=== PATIENT | male | born 1930 | race Caucasian/White ===

== ENCOUNTER 2016-10-18 11:03 | Inpatient (IN) | payer OTHER, MEDICARE ==
[2016-10-18 11:12] VITALS: BMI 29.4
--- NOTE | 2016-10-18 11:21 | PDOC ---
History of Present Illness - General Chief Complaint: Shortness of Breath Stated Complaint: SOB Time Seen by Provider: 10/18/16 11:16 History Source: Patient, Old Records, Primary Care Provider Exam Limitations: No Limitations - History of Present Illness Initial Comments: 10/18/16 12:42 HPI: This 86-year-old male presents to the emergency room after seeing his primary care physician with shortness of breath and COPD exacerbation, hypoxia, respiratory failure. His oxygen saturation is 89% on room air. He was then brought over by his son for admission. Chief Compliant: Shortness of breath PMH: COPD, pulmonary hypertension, atrial fibrillation on before meals, CHF, LV dysfunction, HLD, ASD FH: Pt has not recently traveled outside the country in the last 30 days. Pt has not been in contact with people who have traveled out of the country, in contact with people who have been ill with fever, n, v, d. SH: smoking use: NONE illicit drug use: NONE alcohol use: NONE PSH: none Home med use noted on SEP Allergies: nka Immunizations: PCP: Dr. Pfeiffer Cards: Dr. Palma Past History - Past Medical History Allergies/Adverse Reactions: Allergies Allergy/AdvReac Type Severity Reaction Status Date / Time No Known Allergies Allergy Verified 10/18/16 11:05 Home Medications: Ambulatory Orders Furosemide [Lasix] 20 mg PO DAILY 10/18/16 Losartan Potassium [Cozaar] 25 mg PO DAILY 10/18/16 Metoprolol Succinate [Toprol Xl] 50 mg PO DAILY 10/18/16 Spironolactone [Aldactone] 25 mg PO DAILY 10/18/16 Warfarin Sodium [Coumadin] 2.5 mg PO DAILY 10/18/16 Asthma: Yes Cardiac Disorders: Yes (A-FIB) CVA: Yes (cad, asd) COPD: Yes (& pulm htn) GI Disorders: Yes (GI BLEED, WITH TRANSFUSION) HTN: Yes - Surgical History Cardiac Surgery: Yes (ASD) - Psycho/Social/Smoking Cessation Hx Anxiety: No Suicidal Ideation: No Smoking History: Former smoker Have you smoked in the past 12 months: No If you are a former smoker, when did you quit?: 1984 Information on smoking cessation initiated: No Hx Alcohol Use: No Drug/Substance Use Hx: No Substance Use Type: None Hx Substance Use Treatment: No Review of Systems - Review of Systems Able to Perform ROS?: Yes Comments:: 10/18/16 12:55 General statement: Shortness of breath exacerbation of COPD Hematology: Has had a history of what transfusions needed but no active bleeding is also noted to be on Coumadin for A. fib Skin: Neg for lesions, rash, bruising. HEENT: Neg symptoms Respiratory: Positive for SOB and difficulty in breathing Cardiac: Neg chest pain GI: Neg pain, n/v : Neg problems on voiding MS: Neg for joint pain/stiffness, no edema Neuro: Neg for LOC, weakness, Endocrine: Neg for excess thirst/hunger, cold/heat intolerance, excess sweating Allergies: Neg for allergies *Physical Exam - Vital Signs Last Vital Signs Temp Pulse Resp BP Pulse Ox 97.5 F L 92 H 25 H 100/49 95 10/18/16 11:06 10/18/16 11:06 10/18/16 11:06 10/18/16 11:06 10/18/16 11:06 - Physical Exam Comments: 10/18/16 12:56 General Appearance: This well appearing 86-year-old male who appears SOB V/S: hemodynamically stable, afebrile Skin: WNL of pt's skin color, no signs of pallor, mottling, cyanosis Head:symmetrical Eyes: EOM's intact, PERRLA Ears: denies pain Nose: patent Throat: lips, teeth, gums, tongue, buccal mucos pink and moist Lungs: Chest symmetry equal. Cap refill <3 seconds. Lung sounds diminished with an oxygen saturation of 89% on room air Cardiac: PMI at R 4MCL space, pos S1 and S2, irregular rate. Abdomen: Soft, round, nontender : Not observed Muscularskeletal: Gait steady, ambulated in to ER, no edema +PMS Neuro: AAOx3, cognitively intact, speech clear and appropriate. ED Treatment Course - LABORATORY CBC & Chemistry Diagram: 10/18/16 11:30 10/18/16 11:30 Medical Decision Making - Medical Decision Making 10/18/16 12:57 A/P: A 86-year-old male with shortness of breath history of CHF and COPD. Was seen earlier today at his primary care physician's office who would like to have the patient admitted. 1. Shortness of breath, COPD exacerbation Pulse ox greater than 90%, Steroids, Oxygen to maintain in sat of greater than 90 2. Labs Noted to have a low H/H requiring transfusion Type and screen 1 unit of packed red blood cells, 3. EKG, Cardiac enzymes 4. Admission inpatient observation per Dr. Pfeiffer, attending. *DC/Admit/Observation/Transfer Diagnosis at time of Disposition: Shortness of breath - Discharge Dispostion Condition at time of disposition: Guarded Admit: Yes
[2016-10-18 11:42] LABS: BASOPHIL 0.4 % (0-2.0); EOSINOPHIL 2.7 % (0-4.5); MCH 31.9 pg (25.7-33.7); MCHC 32.1 g/dl (32.0-35.9); MEAN CELL VOLUME 99.2 fl (80-96); MEAN PLT VOLUME 6.3 fl (7.5-11.1); NEUTROPHILS 54.4 % (42.8-82.8); PLATELET COUNT 117 K/MM3 (134-434); RDW 19.7 % (11.9-15.9); WHITE BLOOD COUNT 2.7 K/mm3 (4.0-10.0)
--- NOTE | 2016-10-18 11:52 | CON.CARD ---
Consult Consult Specialty:: Cardiology Referred by:: Ean Pfeiffer MD Reason for Consultation:: Dyspnea - History of Present Illness Chief Complaint: Dyspnea History of Present Illness: Patient is an 86 year old male with underlying history of 1 vessel CAD on medical therapy, angina pectoris, history of congestive heart failure with LV systolic and diastolic LV dysfunction, history of atrial septal defect s /p open repair, persistent afib s/p CryoMaze procedure and on chronic anticoagulation ([id number] score of 4), atypical atrial flutter/atrial tachycardia, hypercholesterolemia, history of COPD, reactive airway disease, pulmonary hypertension, hyperlipidemia, GI bleed and degenerative joint disease presented with complaints of progressively worsening SOB, fatigue, light- headedness and decreased exercise tolerance, he denies chest pain, palpitations , orthopnea, true syncope, PND or LE edema, found to have profound anemia Hgb 6.7, reports hematochezia he attributes to hemorrhoids. Allergies: NKDA - History Source History Provided By: Patient Limitations to Obtaining History: No Limitations - Past Medical History Cardio/Vascular: Yes: AFIB, CAD, CHF ([place] on chronic LV systolic and diastolic heart failure), Pulmonary Hypertension, Other (REPAIR OF LARGE ASD) Pulmonary: Yes: COPD, Other (PULMONARY HYPERTENSION). No: Cancer, O2 Dependent , Previously Intubated, Pulmonary Embolus Musculoskeletal: Yes: Osteoarthritis. No: Chronic low back pain ENT: Yes: Other (H/O EPISTAXSIS WITH ER VISTS TWICE OVER PAST 12 MONTHS.) - Alcohol/Substance Use Hx Alcohol Use: No History of Substance Use: reports: None - Smoking History Smoking history: Former smoker Have you smoked in the past 12 months: No If you are a former smoker, when did you quit?: 1984 - Social History ADL: Family Assistance History of Recent Travel: No Home Medications - Allergies Allergies/Adverse Reactions: Allergies Allergy/AdvReac Type Severity Reaction Status Date / Time No Known Allergies Allergy Verified 10/18/16 11:05 - Home Medications Home Medications: Ambulatory Orders Furosemide [Lasix] 20 mg PO DAILY 10/18/16 Losartan Potassium [Cozaar] 25 mg PO DAILY 10/18/16 Metoprolol Succinate [Toprol Xl] 50 mg PO DAILY 10/18/16 Spironolactone [Aldactone] 25 mg PO DAILY 10/18/16 Warfarin Sodium [Coumadin] 2.5 mg PO DAILY 10/18/16 Family Disease History - Family Disease History Family Disease History: Heart Disease: Father, Sister, [place]: Brother (CVA, PROSTATE CANCE,LUNG CANCER,PANCREATIC CANCER), Other: Brother Review of Systems - Review of Systems Respiratory: reports: Exercise Intolerance, SOB on Exertion Vital Signs: Vital Signs Temperature 97.5 F L 10/18/16 11:06 Pulse Rate 92 H 10/18/16 11:06 Respiratory Rate 25 H 10/18/16 11:06 Blood Pressure 100/49 10/18/16 11:06 O2 Sat by Pulse Oximetry (%) 95 10/18/16 11:06 Constitutional: Yes: No Distress, Calm Neck: Yes: Supple Respiratory: Yes: Regular, Diminished, On Nasal O2 Gastrointestinal: Yes: Normal Bowel Sounds, Soft, Abdomen, Obese Cardiovascular: Yes: Pulse Irregular JVD: No Carotid Bruit: No Heart Sounds: Yes: S1, S2 Murmur: Yes: Systolic Murmur, Grade 1 Edema: No - Other Data Afib @ 89 RBBB similar to previous Echo: Report Reviewed Prior Cardiac Procedures: Cardiac Catheterization Ejection Fraction %: LVEF > or = 40 % Imaging - Results Chest X-ray: Report Reviewed (NAD, prominent right PA) EKG: Report Reviewed Problem List - Problems (1) COPD (chronic obstructive pulmonary disease) Code(s): J44.9 - CHRONIC OBSTRUCTIVE PULMONARY DISEASE, UNSPECIFIED Qualifiers : COPD type: unspecified COPD Qualified Code(s): J44.9 - Chronic obstructive pulmonary disease, unspecified (2) GI bleed Code(s): K92.2 - GASTROINTESTINAL HEMORRHAGE, UNSPECIFIED Qualifiers: GI bleed type/associated pathology: diverticulosis Qualified Code(s) : K57.91 - Diverticulosis of intestine, part unspecified, without perforation or abscess with bleeding (3) Hypertension Code(s): I10 - ESSENTIAL (PRIMARY) HYPERTENSION Qualifiers: Hypertension type: essential hypertension Qualified Code(s): I10 - Essential (primary) hypertension (4) Shortness of breath Code(s): R06.02 - SHORTNESS OF BREATH (5) Anemia Code(s): D64.9 - ANEMIA, UNSPECIFIED Qualifiers: Anemia type: iron deficiency (6) Atrial fibrillation Code(s): I48.91 - UNSPECIFIED ATRIAL FIBRILLATION Qualifiers: Atrial fibrillation type: persistent Qualified Code(s): I48.1 - Persistent atrial fibrillation (7) CAD (coronary artery disease) Code(s): I25.10 - ATHSCL HEART DISEASE OF [place] CORONARY ARTERY W/O ANG PCTRS Qualifiers: Coronary Disease-Associated Artery/Lesion type: [place] artery [place] vs. transplanted heart: [place] heart Associated angina: without angina Qualified Code(s): I25.10 - Atherosclerotic heart disease of [place] coronary artery without angina pectoris (8) H/O atrial septal defect repair Code(s): Z98.89 - OTHER SPECIFIED POSTPROCEDURAL STATES * DO NOT USE * Z87.74 - PERSONAL HISTORY OF CONGENITAL MALFORM OF HEART AND CIRC SYS (9) Hypercholesterolemia Code(s): E78.0 - PURE HYPERCHOLESTEROLEMIA * DO NOT USE * (10) Rectal bleeding Code(s): K62.5 - HEMORRHAGE OF ANUS AND RECTUM (11) Right bundle branch block Code(s): I45.10 - UNSPECIFIED RIGHT BUNDLE-BRANCH BLOCK (12) Shortness of breath on exertion Code(s): R06.02 - SHORTNESS OF BREATH (13) Systolic and diastolic CHF, acute on chronic Code(s): I50.43 - ACUTE ON CHRONIC COMBINED SYSTOLIC AND DIASTOLIC HRT FAIL Assessment/Plan 10/28/2015 Echo: Normal LV size and fxn, mod decreased RV fxn, severe LAE, mild- mod CHRISTIAN, mild MR, mild-mod TR, RVSP 50-60 mmHg, mod AR, IN 1. Dyspnea referable to symptomatic anemia referable to recurrent lower GI bleed etiology to be determined, prior history of diverticular bleed post resection of a large rectal polyp 2. Chronic LV diastolic dysfunction with h/o failure 3. ASHD, single vessel CAD, angina pectoris 4. Persistent atrial fibrillation S/P CryoMaze [id number] with therapeutic INR 5. HTN 6. Hypercholesterolemia 7. Post ASD repair 8. RBBB 9. Reactive airway disease 10. Pulmonary HTN 11. Acute on CKD with hyperkalemia PLAN: 1. Await GI input to address hematochezia. Would prefer to avoid FFP +/- Vit K unless it is absolutely necessary in view of patient's stroke risk. Monitor CBC and transfuse PRBC as needed with diuretics listed below. 2. Continue Lasix 40 qd and Spironolactone 25 qd with caution pending volume resuscitation with monitor electrolytes and renal function 3. Hold Coumadin pending hemostasis, given recurrent GI bleeds on systemic a/c, patient may be candidate for NATE occlusion device 4. Continue Metoprolol ER 50 qd and Losartan 25 qd as hemodynamics tolerate 5. Thank you for consultative opportunity
[2016-10-18 12:15] LABS: TROPONIN I < 0.02 ng/ml (0.00-0.05)
[2016-10-18] MEDS ORDERED: ALBUTEROL SO4 2.5/IPRATROPIUM 0.5 INH SOL 3 ML VIAL.NEB. NEB ONE ×2 (13:00→13:11)
[2016-10-18] MEDS ORDERED: methylPREDNISolone NA SUCC 125 MG/2 ML VIAL IVPB ONE (13:00)
[2016-10-18] MEDS ORDERED: methylPREDNISolone NA SUCC 125 MG/2 ML VIAL ONE (13:11)
[2016-10-18 13:33] LABS: ANISOCYTOSIS 3+; MICROCYTOSIS 2+; POLYCHROMASIA FEW
[2016-10-18 13:46] LABS: ALBUMIN 3.1 g/dl (3.4-5.0); BILIRUBIN,TOTAL 2.1 mg/dL (0.2-1.0); CALCIUM 8.3 mg/dL (8.5-10.1); COCKROFT - GAULT 32.59; CREATININE 2.1 mg/dL (0.7-1.3); TOT PROT 8.3 g/dl (6.4-8.2)
--- NOTE | 2016-10-18 14:36 | HP ---
Admitting History and Physical - Primary Care Physician PCP: Ean Pfeiffer - Admission Chief Complaint: shortness of breath History of Present Illness: 86yo male with h/o HTN, hyperlipidemia, CAD, LV diastolic/systolic dysfunction, pulmonary HTN, persistent atrial fibrillation s/p cryomaze, COPD who presents with worsening shortness of breath. He does report chest discomfort but no palpitations. No fevers, chills or sweats. No sick contacts or recent travel. He does report increase in his leg swelling and orthopnea. Also reports BRBPR which he attributes to his hemorrhoids. No abdominal pain, nausea or vomiting. His last endoscopy/colonoscopy was in December which showed antral ulcers, colonic ulcers and severe diverticulosis. History Source: Patient, Medical Record Limitations to Obtaining History: No Limitations - Past Medical History Cardiovascular: Yes: AFIB, CAD, CHF ([place] on chronic LV systolic and diastolic heart failure), Pulmonary Hypertension, Other (REPAIR OF LARGE ASD) Pulmonary: Yes: COPD, Other (PULMONARY HYPERTENSION). No: Cancer, O2 Dependent , Previously Intubated, Pulmonary Embolus Heme/Onc: Yes: Other (PATIENT IS ON COUMADIN). No: B12 Deficiency, Bleeding Disorder Musculoskeletal: Yes: Osteoarthritis. No: Chronic low back pain ENT: Yes: Other (H/O EPISTAXSIS WITH ER VISTS TWICE OVER PAST 12 MONTHS.) - Smoking History Smoking history: Former smoker Have you smoked in the past 12 months: No If you are a former smoker, when did you quit?: 1984 - Alcohol/Substance Use Hx Alcohol Use: No History of Substance Use: reports: None - Social History ADL: Family Assistance History of Recent Travel: No Home Medications - Allergies Allergies/Adverse Reactions: Allergies Allergy/AdvReac Type Severity Reaction Status Date / Time No Known Allergies Allergy Verified 10/18/16 11:05 - Home Medications Home Medications: Ambulatory Orders Furosemide [Lasix] 20 mg PO DAILY 10/18/16 Losartan Potassium [Cozaar] 25 mg PO DAILY 10/18/16 Metoprolol Succinate [Toprol Xl] 50 mg PO DAILY 10/18/16 Spironolactone [Aldactone] 25 mg PO DAILY 10/18/16 Warfarin Sodium [Coumadin] 2.5 mg PO DAILY 10/18/16 Family Disease History - Family Disease History Family Disease History: Heart Disease: Father, Sister, [place]: Brother (CVA, PROSTATE CANCE,LUNG CANCER,PANCREATIC CANCER), Other: Brother Review of Systems - Review of Systems Constitutional: denies: Chills, Fever Eyes: denies: Recent Change in Vision HENT: denies: Nasal Congestion, Throat Pain Neck: denies: Stiffness, Tenderness Cardiovascular: reports: Edema, Shortness of Breath. denies: Chest Pain, Palpitations Respiratory: reports: Cough, Exercise Intolerance, Orthopnea, SOB, SOB on Exertion. denies: Hemoptysis, Wheezing Gastrointestinal: reports: Rectal Bleeding. denies: Abdominal Pain, Nausea, Vomiting, Vomiting Blood Genitourinary: denies: Dysuria, Hematuria Neurological: denies: Dizziness, Headache Physical Examination Vital Signs: Vital Signs Temperature 97.5 F L 10/18/16 11:06 Pulse Rate 86 10/18/16 13:38 Respiratory Rate 22 10/18/16 13:26 Blood Pressure 100/49 10/18/16 11:06 O2 Sat by Pulse Oximetry (%) 98 10/18/16 13:26 Constitutional: Yes: Calm Eyes: Yes: Conjunctiva Clear, EOM Intact HENT: Yes: Atraumatic, Normocephalic Neck: Yes: Supple, Trachea Midline Cardiovascular: Yes: Pulse Irregular Respiratory: Yes: Regular, Diminished (decreased breath sounds at the bases), Rhonchi (scattered) Gastrointestinal: Yes: Normal Bowel Sounds, Soft, Abdomen, Obese. No: Tenderness Edema: Yes Neurological: Yes: Alert, Oriented Labs: CBC, BMP 10/18/16 11:30 10/18/16 11:30 Imaging - Results Chest X-ray: Report Reviewed, Image Reviewed (no infiltrates, full pulmonary vasculature) Problem List - Problems (1) GI bleed Code(s): K92.2 - GASTROINTESTINAL HEMORRHAGE, UNSPECIFIED (2) Anemia Code(s): D64.9 - ANEMIA, UNSPECIFIED Qualifiers: Anemia type: iron deficiency (3) Atrial fibrillation Code(s): I48.91 - UNSPECIFIED ATRIAL FIBRILLATION Qualifiers: Atrial fibrillation type: persistent Qualified Code(s): I48.1 - Persistent atrial fibrillation (4) CAD (coronary artery disease) Code(s): I25.10 - ATHSCL HEART DISEASE OF [place] CORONARY ARTERY W/O ANG PCTRS Qualifiers: Coronary Disease-Associated Artery/Lesion type: [place] artery [place] vs. transplanted heart: [place] heart Associated angina: without angina Qualified Code(s): I25.10 - Atherosclerotic heart disease of [place] coronary artery without angina pectoris (5) Systolic and diastolic CHF, acute on chronic Code(s): I50.43 - ACUTE ON CHRONIC COMBINED SYSTOLIC AND DIASTOLIC HRT FAIL (6) Hypertension Code(s): I10 - ESSENTIAL (PRIMARY) HYPERTENSION (7) COPD (chronic obstructive pulmonary disease) Code(s): J44.9 - CHRONIC OBSTRUCTIVE PULMONARY DISEASE, UNSPECIFIED Assessment/Plan GI Bleed Anemia CAD LV Diastolic/Systolic Dysfunction Acute on Chronic Renal Failure Atrial Fibrillation COPD HTN Hyperlipidemia - transfuse PRBC - hold anticoagulation, would avoid reversing INR due to stroke risk - monitor H/H - protonix for now - GI evaluation - cardiology input appreciated - rate controlled - inhaled bronchodilators - DVT prophylaxis Harish Bolton MD
[2016-10-18 14:40] LABS: URINE APPEARANCE CLEAR; URINE BILIRUBIN NEGATIVE (NEGATIVE); URINE BLOOD NEGATIVE (NEGATIVE); URINE COLOR LTYELLOW; URINE GLUCOSE (UA) NEGATIVE (NEGATIVE); URINE KETONE NEGATIVE (NEGATIVE); URINE LEUK ESTERASE NEGATIVE (NEGATIVE); URINE NITRITE NEGATIVE (NEGATIVE); URINE PROTEIN NEGATIVE (NEGATIVE); URINE UROBILINOGEN NEGATIVE E.U./dl (0.2-1.0)
[2016-10-18 14:47] LABS: INR 2.85 (0.82-1.09)
[2016-10-18] MEDS ORDERED: ALBUTEROL SO4 2.5/IPRATROPIUM 0.5 INH SOL 3 ML VIAL.NEB. NEB PRN (14:48)
--- NOTE | 2016-10-18 16:19 | CONSULT ---
Consultation: REQUESTING PROVIDER: CONSULT REQUEST: We have been asked to medically evaluate this patient for ( specify). HISTORY OF PRESENT ILLNESS: 86 y/o male came to ED with a complaint of worsening in breathing. Patient states that he has shortness of breath since 5 years but its getting worse. Now he is unabe to walk from from his room to corridor, denies orthopnea, sleep with one pillow. States that he has cough and produce white sputum, denies fever, chills. Denies lightheadedness, dizziness, palpitations. Patient also reports that he has external haemorrhoids and has noticed a blood, blood is bright red, present after the end of defecation, splash is seen in benson, blood present when he wipes him self. Denies pain during defecation, denies pain in abdomen, denies loss of weight, denies nausea, vomiting, denies abdominal distension. He also report h/o repeated epistaxis. Denies bleed from gums, haematuria. REVIEW OF SYSTEMS: CONSTITUTIONAL: Absent: fever, chills, diaphoresis, generalized weakness, malaise, loss of appetite, weight change HEENT: Absent: rhinorrhea, nasal congestion, throat pain, throat swelling, difficulty swallowing, mouth swelling, ear pain, eye pain, visual changes, epistaxis CARDIOVASCULAR: Absent: chest pain, syncope, palpitations, irregular heart rate, lightheadedness , peripheral edema RESPIRATORY: Absent: cough, shortness of breath, dyspnea with exertion, orthopnea, wheezing, stridor, hemoptysis GASTROINTESTINAL: Absent: abdominal pain, abdominal distension, nausea, vomiting, diarrhea, constipation, melena, lower gi bleed, external haemorrhoids GENITOURINARY: Absent: dysuria, frequency, urgency, hesitancy, hematuria, flank pain, genital pain MUSCULOSKELETAL: Absent: myalgia, arthralgia, SKIN: Absent: rash, HEMATOLOGIC/IMMUNOLOGIC: Absent: easy bleeding, easy bruising, ENDOCRINE: Absent: unexplained weight gain, unexplained weight loss, heat intolerance, cold intolerance NEUROLOGIC: Absent: headache, focal weakness or paresthesias, dizziness, unsteady gait, seizure, mental status changes, PSYCHIATRIC: Absent: anxiety, depression, PHYSICAL EXAMINATION Vital Signs - 24 hr 10/18/16 10/18/16 13:26 13:38 Pulse Rate [ 86 Left] Respiratory 22 Rate O2 Sat by Pulse 98 Oximetry (%) GENERAL: Awake, alert, and fully oriented, in no acute distress. HEAD: Normal with no signs of trauma. EYES: Pupils equal, round and reactive to light, EARS, NOSE, THROAT: Ears normal, nares patent, oropharynx clear without exudates. NECK: Normal range of motion, supple without lymphadenopathy,or masses. LUNGS: Breath sounds equal, clear to auscultation bilaterally. No wheezes, and no crackles. No accessory muscle use. HEART:s1s2 normal irregular ABDOMEN: Soft, nontender, not distended, normoactive bowel sounds, no guarding, no rebound, no masses. MUSCULOSKELETAL: Normal range of motion at all joints. No bony deformities or tenderness. No CVA tenderness. UPPER EXTREMITIES: 2+ pulses, warm, well-perfused. No cyanosis. No clubbing. Cap refill <2 seconds. No peripheral edema. LOWER EXTREMITIES: 2+ pulses, warm, well-perfused. No calf tenderness. peripheral edema 1+ NEUROLOGICAL: Cranial nerves II-XII intact. Normal speech. PSYCHIATRIC: Cooperative. Good eye contact. Appropriate mood and affect. SKIN: Warm, dry, rectal exam: no fissure, skin tag present, no blood seen, anal tone normal, no blood stain on finger. Laboratory Results - last 24 hr 10/18/16 10/18/16 10/18/16 11:30 11:30 11:30 WBC 2.7 L RBC 2.10 L D Hgb 6.7 L* D Hct 20.9 L D MCV 99.2 H MCHC 32.1 RDW 19.7 H D Plt Count 117 L MPV 6.3 L Neutrophils % 54.4 Lymphocytes % 25.9 D Monocytes % 16.6 H Eosinophils % 2.7 Basophils % 0.4 Polychromasia Few Anisocytosis 3+ Microcytosis 2+ Macrocytosis 1+ INR PTT (Actin FS) Sodium 136 Potassium 5.2 H Chloride 98 Carbon Dioxide 26 D Anion Gap 12 BUN 43 H D Creatinine 2.1 H D Creat Clearance w eGFR 30.02 Random Glucose 191 H D Calcium 8.3 L Total Bilirubin 2.1 H D AST 22 D ALT 14 Alkaline Phosphatase 96 Creatine Kinase 68 Troponin I < 0.02 B-Natriuretic Peptide 2209.06 H Total Protein 8.3 H Albumin 3.1 L Urine Color Urine Appearance Urine pH Ur Specific [place] Urine Protein Urine Glucose (UA) Urine Ketones Urine Blood Urine Nitrite Urine Bilirubin Urine Urobilinogen Ur Leukocyte Esterase Blood Type Antibody Screen Antibody Identification Direct Antiglob Test Crossmatch Spec Expiration Date 10/18/16 10/18/16 10/18/16 13:18 13:27 13:27 WBC RBC Hgb Hct MCV MCHC RDW Plt Count MPV Neutrophils % Lymphocytes % Monocytes % Eosinophils % Basophils % Polychromasia Anisocytosis Microcytosis Macrocytosis INR 2.85 H D PTT (Actin FS) 52.7 H Sodium Potassium Chloride Carbon Dioxide Anion Gap BUN Creatinine Creat Clearance w eGFR Random Glucose Calcium Total Bilirubin AST ALT Alkaline Phosphatase Creatine Kinase Troponin I B-Natriuretic Peptide Total Protein Albumin Urine Color Urine Appearance Urine pH Ur Specific [place] Urine Protein Urine Glucose (UA) Urine Ketones Urine Blood Urine Nitrite Urine Bilirubin Urine Urobilinogen Ur Leukocyte Esterase Blood Type Cancelled Antibody Screen Cancelled Antibody Identification Direct Antiglob Test Crossmatch Spec Expiration Date Cancelled 10/18/16 10/18/16 14:15 14:34 WBC RBC Hgb Hct MCV MCHC RDW Plt Count MPV Neutrophils % Lymphocytes % Monocytes % Eosinophils % Basophils % Polychromasia Anisocytosis Microcytosis Macrocytosis INR PTT (Actin FS) Sodium Potassium Chloride Carbon Dioxide Anion Gap BUN Creatinine Creat Clearance w eGFR Random Glucose Calcium Total Bilirubin AST ALT Alkaline Phosphatase Creatine Kinase Troponin I B-Natriuretic Peptide Total Protein Albumin Urine Color Ltyellow Urine Appearance Clear Urine pH 5.0 Ur Specific [place] 1.011 Urine Protein Negative Urine Glucose (UA) Negative Urine Ketones Negative Urine Blood Negative Urine Nitrite Negative Urine Bilirubin Negative Urine Urobilinogen Negative Ur Leukocyte Esterase Negative Blood Type O POSITIVE Antibody Screen Positive H Antibody Identification No Result Required. Direct Antiglob Test Positive H Crossmatch See Detail Spec Expiration Date Active Medications Generic Name Dose Route Start Last Admin Trade Name Freq PRN Reason Stop Dose Admin Albuterol/Ipratropium 1 amp 10/18/16 14:48 Duoneb - NEB Q4H PRN SHORTNESS OF BREATH Furosemide 20 mg 10/19/16 10:00 Lasix - PO DAILY RUBIA Pantoprazole Sodium 100 mls @ 200 mls/hr 10/18/16 22:00 Protonix 40mg Ivpb (Pre-Docked) IVPB BID RUBIA Losartan Potassium 25 mg 10/19/16 10:00 Cozaar - PO DAILY RUBIA Metoprolol Succinate 50 mg 10/19/16 10:00 Toprol Xl - PO DAILY [facility] Spironolactone 25 mg 10/19/16 10:00 Aldactone - PO DAILY [facility] ASSESSMENT/PLAN: Gi bleed with anemia ( UGI bleed vs haemorrhoids vs diverticular bleed, no h/o bleeeding disorder ) hb 6.7, no active bleed follow stool for occult pack cell transfusion with 20mg po lasix monitor haemoglobin continue with protonix 40g bid gastroentrology consult His last endoscopy/colonoscopy was in December which showed antral ulcers, colonic ulcers and severe diverticulosis. Dyspnea could be due to anemia, less likely from chronic chf transfuse blood spo2 98 % on 2 L nasal canula [place] on ckd monitor cr avoid nephrotoxic drugs follow urine lytes acute on chronic CHF continue with lasix 40 mg po daily daily weight intake/ output H/o cad/ afib hold coumadin in view of anemia and gi bleed rate control with toprol xl [id number] score of 5 h/o copd not active on duoneb q4h prn Fluid: orally allowed electrolyte : repeat in am nutrition; clear liquid dvt pro : scd b/l gi pro : on protonix dispo ; admit in icu Dispo: We will continue to follow the patient. Thank you for this consultative opportunity. Visit type - Emergency Visit Emergency Visit: Yes ED Registration Date: 10/18/16 Care time: The patient presented to the Emergency Department on the above date and was hospitalized for further evaluation of their emergent condition. - New Patient This patient is new to me today: Yes Date on this admission: 10/18/16 - Critical Care Critical Care patient: Yes Total Critical Care Time (in minutes): 45 Critical Care Statement: The care of this patient involved high complexity decision making to prevent further life threatening deterioration of the patient 's condition and/or to evalute & treat vital organ system(s) failure or risk of failure.
[2016-10-18] MEDS ORDERED: POLYETHYLENE GLYCOL 3350 119 GM BTL PO SCH (22:00)
[2016-10-18] MEDS ORDERED: MUPIROCIN 2% TOPICAL OINTMENT FOR DECOLONIZATION NS SCH (22:00)
[2016-10-18] MEDS ORDERED: CHLORHEXIDINE GLUCONATE 4% CLEANSER FOR DECOLONIZATION TP SCH (22:00)
[2016-10-18] MEDS ORDERED: PANTOPRAZOLE SODIUM 100 ML IVPB SCH (22:00)
[2016-10-19 06:37] LABS: BASOPHIL 0.1 % (0-2.0); EOSINOPHIL 0.2 % (0-4.5); MCH 31.9 pg (25.7-33.7); MCHC 31.9 g/dl (32.0-35.9); MEAN PLT VOLUME 6.8 fl (7.5-11.1); NEUTROPHILS 77.7 % (42.8-82.8); PLATELET COUNT 129 K/MM3 (134-434); RDW 19.4 % (11.9-15.9); WHITE BLOOD COUNT 3.2 K/mm3 (4.0-10.0)
[2016-10-19 06:54] LABS: INR 2.96 (0.82-1.09); PROTHROMBIN TIME (PATIENT) 33.3 SEC (9.98-11.88)
--- NOTE | 2016-10-19 06:59 | PN ---
Progress Note (short form) - Note Progress Note: Chief Complaint: Events noted, notes reviewed, sitting in a chair, Denies any chest pain but reports persistent dyspnea, awaiting blood transfusion, await GI evaluation History of Present Illness: Seen and examined in the ICU. Events noted, notes reviewed, sitting in a chair, Denies any chest pain but reports persistent dyspnea, awaiting blood transfusion , await GI evaluation Rhythm currently appears to be sinus rhythm Will obtain operative report from [facility] in reference to his ASD repair and Cry- Maze procedure to assess if LA appendage was resected, if not consideration for NATE closure device as alternative to chronic A/C - Current Medication List Current Medications Albuterol/Ipratropium (Duoneb -) 1 amp NEB Q4H PRN PRN Reason: SHORTNESS OF BREATH Chlorhexidine Gluconate (Hibiclens For Decolonization -) 1 applic TP HS [facility] Last Admin: 10/18/16 21:48 Dose: 1 applic Furosemide (Lasix -) 40 mg PO DAILY [facility] Pantoprazole Sodium (Protonix 40mg Ivpb (Pre-Docked)) 100 mls @ 200 mls/hr IVPB BID [facility] Last Admin: 10/18/16 21:42 Dose: 200 mls/hr Losartan Potassium (Cozaar -) 25 mg PO DAILY [facility] Metoprolol Succinate (Toprol Xl -) 50 mg PO DAILY [facility] Mupirocin (Bactroban Ointment (For Decolonization) -) 1 applic NS BID [facility] Stop: 10/23/16 21:59 Last Admin: 10/18/16 21:47 Dose: 1 applic Polyethylene Glycol (Miralax (For Daily Use) -) 17 gm PO BID [facility] Last Admin: 10/18/16 21:48 Dose: 17 grams Spironolactone (Aldactone -) 25 mg PO DAILY [facility] Review of Systems Constitutional: denies: Chills or Fever Cardiovascular: As noted above Respiratory: denies: Cough or Sputum Production Gastrointestinal: denies: Nausea, Vomiting, Diarrhea, Constipation or Abdominal Pain Genitourinary: No symptoms reported - Objective Vital Signs: Last Vital Signs Temp Pulse Resp BP Pulse Ox 97.8 F 72 16 93/49 98 10/19/16 06:00 10/19/16 06:00 10/19/16 06:00 10/19/16 06:00 10/18/16 17:00 Neck: Supple Negative JVD No Bruit Cardiovascular: S1 S2 Regular Rate Rhythm grade 2/6 SM Respiratory: Clear to A&P Bilaterally Gastrointestinal: Soft Benign Normal Bowel Sounds Ext: No Edema Labs: CBC, BMP 10/19/16 05:20 BMP pending from this AM INR, PTT INR 2.96 (0.82-1.09) H 10/19/16 05:20 Assessment/Plan ASSESSMENT: 1. Recurrent lower GI bleed etiology to be determined, prior history of diverticular bleed post resection of a large rectal polyp 2. 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 Persistent atrial fibrillation post Cryo-Maze, [id number] score of 5 5. HTN 6. Hypercholesterolemia 7. ASD post surgical repair 8. Reactive airway disease/COPD 9. Anemia referable to above 10. CKD PLAN: 1. Transfuse to maintain Hg equal or > 8.0 2. Recommend resumption of A/C therpay once cleared by GI and bleeding has ceased considering the above noted [id number] score of 5 3. Continue Lasix and Spironolactone with close monitoring of renal function 4. Continue Toprol XL 5. Continue Cozaar 6. Continue to hold Coumadin, pending further evaluation 7. Obtain operative report from [facility] in reference to his ASD repair and Cry- Maze procedure to assess if LA appendage was resected, if not consideration for NATE closure device as alternative to chronic A/C Nova Jara MD
[2016-10-19 07:40] LABS: BILIRUBIN,TOTAL 1.3 mg/dL (0.2-1.0); CALCIUM 8.5 mg/dL (8.5-10.1); COCKROFT - GAULT 40.26; CREATININE 1.7 mg/dL (0.7-1.3); MAGNESIUM 2.7 mg/dL (1.8-2.4); PHOSPHOROUS 4.3 mg/dL (2.5-4.9); TOT PROT 8.4 g/dl (6.4-8.2)
[2016-10-19] MEDS ORDERED: DEXTROSE 50%-WATER 50 ML VIAL IVPUSH ONE (09:00)
[2016-10-19] MEDS ORDERED: INSULIN REGULAR HUMAN 100 UNITS/ML *VIAL IVPUSH ONE (09:00)
[2016-10-19] MEDS: ALBUTEROL SO4 0.083% IH SOL 2.5 MG/3 ML VIAL.NEB. NEB SCH ×3 (09:00→09:30)
[2016-10-19] MEDS ORDERED: CALCIUM GLUCONATE 10% - 1,000 MG/10 ML VIAL IVPB ONE (09:00)
[2016-10-19] MEDS ORDERED: SODIUM POLYSTYRENE SULFONATE 15 GM/60 ML BOTTLE PO ONE (09:00)
[2016-10-19] MEDS: LOSARTAN POTASSIUM 25 MG TABLET PO SCH ×2 (09:26→09:29)
[2016-10-19] MEDS ORDERED: SPIRONOLACTONE 25 MG TABLET (FP) PO SCH (10:00)
[2016-10-19] MEDS ORDERED: FUROSEMIDE 20 MG TABLET (FP) PO SCH (10:00)
[2016-10-19] MEDS ORDERED: FUROSEMIDE 40 MG TABLET (FP) PO SCH (10:00)
[2016-10-19] MEDS ORDERED: METOPROLOL SUCCINATE 50 MG TAB.SR.24H (FP) PO SCH (10:00)
--- NOTE | 2016-10-19 10:52 | CONS ---
DATE OF CONSULTATION: DATE OF DICTATION: 10/19/2016 REQUESTING PHYSICIAN: Ean Pennington MD HISTORY OF PRESENT ILLNESS: The patient is an 86-year-old male admitted through [facility] Emergency Room for evaluation of generalized malaise, increasing shortness of breath, fatigue, and was admitted for further evaluation. In the emergency room, his vital signs revealed a temperature of 97.5, pulse of 92, blood pressure 100/49. He does have a baseline anemia with hemoglobin ranging from 9 to 8. His hemoglobin was 6.7 yesterday on admission with a white blood cell count of 2.7, MCV of 99.2, and platelet count of 117. His INR is 2.85. He denies any melena. He does describe intermittent rectal bleeding with bowel movements. He was last evaluated for anemia and rectal bleeding in December of 2015. At that time and on December 12, 2015, he underwent both upper endoscopy and colonoscopy performed by Dr. Camacho. Upper endoscopy revealed a Schatzkis ring of the distal esophagus, small sliding hiatal hernia, 2 small erosions in the gastric antrum and duodenal bulb, duodenal inflammation in the bulb and 2nd portion of the duodenum. Colonoscopy revealed a 4.5-cm rectal polyp, and 2 polyps in the rectum measuring 1.8 and 0.5 cm, as well as a 1.2-cm splenic flexure polyp and severe diverticulosis throughout the entire colon. He did have rebleeding after the colonoscopy and I did a flexible sigmoidoscopy December 16, 2015, that revealed 2 large ulcers, the site of previous polypectomies in the rectum and rectosigmoid colon that were not actively bleeding. The bases were broad and I just advised observation at that point. I did note severe diverticulosis in the sigmoid and descending colon. He was noted to be guaiac negative on a specimen sent to the lab from the emergency room. He has been anemic since at least 2010, review of the [employer] system that it has worsened from September of 2014, and he is maintained on Coumadin. PAST MEDICAL HISTORY: Includes atrial fibrillation, coronary artery disease, CHF, episodes of acute on chronic LV systolic and diastolic heart failure, pulmonary hypertension, history of repair of a large atrial septal defect, history of COPD, osteoarthritis, epistaxis with ER visits. For that, he had CryoMaze procedure for repair of the atrial septal defect. He has correction of an undescended right testicle. SOCIAL HISTORY: He is a former smoker. No history of EtOH abuse, intravenous drug abuse, or illicit drugs. ALLERGIES: No known drug allergies. MEDICATIONS PRIOR TO ADMISSION: Include Aldactone, Cozaar, Lasix, Toprol, and Coumadin. REVIEW OF SYSTEMS: He complained of shortness of breath and generalized fatigue. No nausea or vomiting. No dysphagia or odynophagia. No weight loss. He denies any black bowel movements. He did describe some intermittent bright red blood per rectum and intermittently described constipation. PHYSICAL EXAMINATION: General: Patient was found lying in his bed. He appeared to be in no apparent distress. Vital signs: He was afebrile with a pulse of 89, blood pressure of 111/54, saturating at 97% on 2 L nasal cannula oxygen. HEENT: Sclerae anicteric. Neck: Supple. Heart: Examination of the heart revealed a regular rate and rhythm. He did have a 2/6 systolic murmur heard best at the left sternal border. Lungs: He did have occasional wheezing on expiration heard best at the right lung base. Abdomen: The abdomen was nondistended. He did have a right inguinal scar. He had normoactive bowel sounds. No hepatosplenomegaly was appreciated. No masses were palpated. He did have an umbilical hernia that was nontender. Extremities: Examination of the extremities revealed no lower extremity edema. He did have chronic stasis changes, and he had cool lower extremities. Digital rectal: Skin tag. Otherwise, there were no masses palpated. He had quintanilla stool in the rectal vault, which was guaiac negative. LABORATORY EVALUATION: White blood count 3.2, hemoglobin 6.8, hematocrit 21.4, MCV of 100, platelets of 129. Sodium 135, potassium 6.1, BUN of 43, creatinine of 1.7, glucose of 147, AST of 19, ALT of 14, alkaline phosphatase of 96, total bilirubin 1.3 with an albumin of 3.0. RADIOLOGY REPORTS: Chest x-ray revealed a large heart, prominent right hilum. IMPRESSION: An 86-year-old male with pancytopenia noted to be guaiac negative on my examination and on specimen sent to the lab today. He does have history of intermittent bright red blood per rectum, which I suspect is likely secondary to internal hemorrhoidal disease as he has had previous recent endoscopic evaluations. He does not describe a copious rectal bleeding which would be suspicious for an alternate cause of his bleeding such as a diverticular bleed. Of note, he is also noted to be pancytopenic with elevated potassium as well. In the setting of his anemia, I question if there is a component of hemolysis or other hematologic disorder especially in the setting of macrocytosis. I would advise monitoring for active ongoing GI bleeding at this time. No invasive endoscopic testing is planned. Consider a hematology evaluation and please recall us as necessary. I think you for this consultative opportunity. QUINTIN WALLS DO [id number]
--- NOTE | 2016-10-19 12:13 | PN ---
Teaching Attending Note Name of Resident: Cristian Lewis ATTENDING PHYSICIAN STATEMENT I saw and evaluated the patient. I reviewed the resident's note and discussed the case with the resident. I agree with the resident's findings and plan as documented. SUBJECTIVE: Pt seen and examined in the ICU. No bleeding events overnight. No fevers or chills. No shortness of breath but not moving around, denies chest pain. OBJECTIVE: Last Vital Signs Temp Pulse Resp BP Pulse Ox 96.9 F L 87 17 116/61 100 10/19/16 10:00 10/19/16 10:00 10/19/16 10:00 10/19/16 10:00 10/19/16 09:00 Intake & Output 10/16/16 10/17/16 10/18/16 10/19/16 23:59 23:59 23:59 23:59 Output Total 500 Balance -500 Weight 205 lb Gen: mildly tachypneic with exertion Heart: RRR Lung: decreased breath sounds at the bases, scattered rales Abd: soft, nontender Ext: trace distal edema CBC, BMP 10/19/16 05:20 10/19/16 05:20 INR, PTT INR 2.96 (0.82-1.09) H 10/19/16 05:20 Active Medications Albuterol/Ipratropium (Duoneb -) 1 amp NEB Q4H PRN PRN Reason: SHORTNESS OF BREATH Chlorhexidine Gluconate (Hibiclens For Decolonization -) 1 applic TP HS [facility] Last Admin: 10/18/16 21:48 Dose: 1 applic Furosemide (Lasix -) 40 mg PO DAILY [facility] Last Admin: 10/19/16 09:24 Dose: 40 mg Losartan Potassium (Cozaar -) 25 mg PO DAILY [facility] Last Admin: 10/19/16 09:29 Dose: Not Given Metoprolol Succinate (Toprol Xl -) 50 mg PO DAILY [facility] Last Admin: 10/19/16 09:24 Dose: 50 mg Mupirocin (Bactroban Ointment (For Decolonization) -) 1 applic NS BID [facility] Stop: 10/23/16 21:59 Last Admin: 10/18/16 21:47 Dose: 1 applic Polyethylene Glycol (Miralax (For Daily Use) -) 17 gm PO BID [facility] Last Admin: 10/18/16 21:48 Dose: 17 grams ASSESSMENT AND PLAN: r/o GI Bleed Pancytopenia/Anemia CAD LV Diastolic/Systolic Dysfunction Acute on Chronic Renal Failure Hyperkalemia Atrial Fibrillation COPD HTN Hyperlipidemia - transfuse PRBC - hold anticoagulation, would avoid reversing INR due to stroke risk - monitor H/H - protonix for now - send LDH, haptoglobin - hematology evaluation - kayexalate, d/c aldactone - rate controlled - inhaled bronchodilators - DVT prophylaxis - can monitor on telemetry Problem List - Problems (1) GI bleed Code(s): K92.2 - GASTROINTESTINAL HEMORRHAGE, UNSPECIFIED Qualifiers: GI bleed type/associated pathology: diverticulosis Qualified Code(s) : K57.91 - Diverticulosis of intestine, part unspecified, without perforation or abscess with bleeding (2) Anemia Code(s): D64.9 - ANEMIA, UNSPECIFIED Qualifiers: Anemia type: iron deficiency (3) Atrial fibrillation Code(s): I48.91 - UNSPECIFIED ATRIAL FIBRILLATION Qualifiers: Atrial fibrillation type: persistent Qualified Code(s): I48.1 - Persistent atrial fibrillation (4) CAD (coronary artery disease) Code(s): I25.10 - ATHSCL HEART DISEASE OF [place] CORONARY ARTERY W/O ANG PCTRS Qualifiers: Coronary Disease-Associated Artery/Lesion type: [place] artery [place] vs. transplanted heart: [place] heart Associated angina: without angina Qualified Code(s): I25.10 - Atherosclerotic heart disease of [place] coronary artery without angina pectoris (5) Systolic and diastolic CHF, acute on chronic Code(s): I50.43 - ACUTE ON CHRONIC COMBINED SYSTOLIC AND DIASTOLIC HRT FAIL (6) Hypertension Code(s): I10 - ESSENTIAL (PRIMARY) HYPERTENSION Qualifiers: Hypertension type: essential hypertension Qualified Code(s): I10 - Essential (primary) hypertension (7) COPD (chronic obstructive pulmonary disease) Code(s): J44.9 - CHRONIC OBSTRUCTIVE PULMONARY DISEASE, UNSPECIFIED Qualifiers : COPD type: unspecified COPD Qualified Code(s): J44.9 - Chronic obstructive pulmonary disease, unspecified
--- NOTE | 2016-10-19 12:31 | PN ---
Physical Exam: SUBJECTIVE: Patient seen and examined patient sitting comfortably in bed respiration is same no bleed over night. breathing is better. denies pain abdomen, nausea, vomiting, chest pain, sob. OBJECTIVE: Vital Signs Period Temp Pulse Resp BP Sys/Brian Pulse Ox Last 24 Hr 96.9 F-98.2 F 72-89 15-22 93-121/49-65 98-100 GENERAL: The patient is awake, alert, and fully oriented, in no acute distress. NECK: Trachea midline, full range of motion, supple. LUNGS: Breath sounds equal, clear to auscultation bilaterally, no wheezes, mild crackles in base , no accessory muscle use. HEART:s1s2 normal ABDOMEN: Soft, nontender, nondistended, normoactive bowel sounds, no guarding, no rebound EXTREMITIES: 2+ pulses, warm, pedal edema 1+ NEUROLOGICAL: Cranial nerves II through XII grossly intact. PSYCH: Normal mood, normal affect. SKIN: Warm, dry, Laboratory Results - last 24 hr 10/18/16 10/18/16 10/18/16 11:30 11:30 13:18 WBC RBC Hgb 6.7 L* D Hct MCV MCHC RDW Plt Count MPV Neutrophils % Lymphocytes % Monocytes % Eosinophils % Basophils % Polychromasia Few Anisocytosis 3+ Microcytosis 2+ Macrocytosis 1+ INR PTT (Actin FS) Sodium 136 Potassium 5.2 H Chloride 98 Carbon Dioxide 26 D Anion Gap 12 BUN 43 H D Creatinine 2.1 H D Creat Clearance w eGFR 30.02 Random Glucose 191 H D Calcium 8.3 L Phosphorus Magnesium Total Bilirubin 2.1 H D AST 22 D ALT 14 Alkaline Phosphatase 96 B-Natriuretic Peptide 2209.06 H Total Protein 8.3 H Albumin 3.1 L Urine Color Urine Appearance Urine pH Ur Specific [place] Urine Protein Urine Glucose (UA) Urine Ketones Urine Blood Urine Nitrite Urine Bilirubin Urine Urobilinogen Ur Leukocyte Esterase Stool Occult Blood Blood Type Cancelled Antibody Screen Cancelled Antibody Identification Direct Antiglob Test Crossmatch Spec Expiration Date Cancelled 10/18/16 10/18/16 10/18/16 13:27 13:27 14:15 WBC RBC Hgb Hct MCV MCHC RDW Plt Count MPV Neutrophils % Lymphocytes % Monocytes % Eosinophils % Basophils % Polychromasia Anisocytosis Microcytosis Macrocytosis INR 2.85 H D PTT (Actin FS) 52.7 H Sodium Potassium Chloride Carbon Dioxide Anion Gap BUN Creatinine Creat Clearance w eGFR Random Glucose Calcium Phosphorus Magnesium Total Bilirubin AST ALT Alkaline Phosphatase B-Natriuretic Peptide Total Protein Albumin Urine Color Ltyellow Urine Appearance Clear Urine pH 5.0 Ur Specific [place] 1.011 Urine Protein Negative Urine Glucose (UA) Negative Urine Ketones Negative Urine Blood Negative Urine Nitrite Negative Urine Bilirubin Negative Urine Urobilinogen Negative Ur Leukocyte Esterase Negative Stool Occult Blood Blood Type Antibody Screen Antibody Identification Direct Antiglob Test Crossmatch Spec Expiration Date 10/18/16 10/18/16 10/19/16 14:34 17:30 05:20 WBC 3.2 L RBC 2.14 L Hgb 6.8 L* Hct 21.4 L MCV 100.0 H MCHC 31.9 L RDW 19.4 H Plt Count 129 L MPV 6.8 L Neutrophils % 77.7 D Lymphocytes % 11.5 D Monocytes % 10.5 H Eosinophils % 0.2 D Basophils % 0.1 Polychromasia Anisocytosis Microcytosis Macrocytosis INR PTT (Actin FS) Sodium Potassium Chloride Carbon Dioxide Anion Gap BUN Creatinine Creat Clearance w eGFR Random Glucose Calcium Phosphorus Magnesium Total Bilirubin AST ALT Alkaline Phosphatase B-Natriuretic Peptide Total Protein Albumin Urine Color Urine Appearance Urine pH Ur Specific [place] Urine Protein Urine Glucose (UA) Urine Ketones Urine Blood Urine Nitrite Urine Bilirubin Urine Urobilinogen Ur Leukocyte Esterase Stool Occult Blood Negative Blood Type O POSITIVE Antibody Screen Positive H Antibody Identification WARM AUTOIMMUNE HEMO ANEMIA Direct Antiglob Test Positive H Crossmatch See Detail Spec Expiration Date 10/19/16 10/19/16 05:20 05:20 WBC RBC Hgb Hct MCV MCHC RDW Plt Count MPV Neutrophils % Lymphocytes % Monocytes % Eosinophils % Basophils % Polychromasia Anisocytosis Microcytosis Macrocytosis INR 2.96 H PTT (Actin FS) Sodium 135 L Potassium 6.1 H* Chloride 98 Carbon Dioxide 31 Anion Gap 6 L BUN 43 H Creatinine 1.7 H Creat Clearance w eGFR 38.32 Random Glucose 147 H D Calcium 8.5 Phosphorus 4.3 Magnesium 2.7 H Total Bilirubin 1.3 H D AST 19 ALT 14 Alkaline Phosphatase 96 B-Natriuretic Peptide Total Protein 8.4 H Albumin 3.0 L Urine Color Urine Appearance Urine pH Ur Specific [place] Urine Protein Urine Glucose (UA) Urine Ketones Urine Blood Urine Nitrite Urine Bilirubin Urine Urobilinogen Ur Leukocyte Esterase Stool Occult Blood Blood Type Antibody Screen Antibody Identification Direct Antiglob Test Crossmatch Spec Expiration Date Active Medications Generic Name Dose Route Start Last Admin Trade Name Omi PRN Reason Stop Dose Admin Albuterol/Ipratropium 1 amp 10/18/16 14:48 Duoneb - NEB Q4H PRN SHORTNESS OF BREATH Chlorhexidine Gluconate 1 applic 10/18/16 22:00 10/18/16 21:48 Hibiclens For Decolonization - TP 1 applic HS RUBIA Administration Furosemide 40 mg 10/19/16 10:00 10/19/16 09:24 Lasix - PO 40 mg DAILY RUBIA Administration Losartan Potassium 25 mg 10/19/16 10:00 10/19/16 09:29 Cozaar - PO Not Given DAILY RUBIA Metoprolol Succinate 50 mg 10/19/16 10:00 10/19/16 09:24 Toprol Xl - PO 50 mg DAILY RUBIA Administration Mupirocin 1 applic 10/18/16 22:00 10/18/16 21:47 Bactroban Ointment (For Decolonization) - NS 10/23/16 21:59 1 applic BID RUBIA Administration Polyethylene Glycol 17 gm 10/18/16 22:00 10/18/16 21:48 Miralax (For Daily Use) - PO 17 grams BID RUBIA Administration ASSESSMENT/PLAN: Gi bleed with anemia hb 6.8, no active bleed stool for occult negative pack cell transfusion, keep hb>8 monitor haemoglobin gastroentrology consult appreciated stop iv protonix His last endoscopy/colonoscopy reports reviewed Pancytopenia haematology consult follow ldh and haptoglobin Dyspnea could be due to anemia, less likely from chronic chf transfuse blood, keep hb > 8 spo2 98 % on 2 L nasal canula k[place] on ckd monitor cr avoid nephrotoxic drugs improving hold spironolactoe in view of hyperkalemia acute on chronic CHF continue with lasix 40 mg po daily daily weight intake/ output H/o cad/ afib hold coumadin in view of anemia and gi bleed rate control with toprol xl [id number] score of 5 Hyperkalemia got albuterol d50 with insulin calcium gluconate kaxylate repeat k at 3:00pm hold spironolactone h/o copd not active on duoneb q4h prn Fluid: orally allowed electrolyte : repeat in am nutrition;sodium controlled diet dvt pro : scd b/l gi pro : on protonix dispo ; transfer to tele Visit type - Emergency Visit Emergency Visit: Yes ED Registration Date: 10/18/16 Care time: The patient presented to the Emergency Department on the above date and was hospitalized for further evaluation of their emergent condition. - New Patient This patient is new to me today: No - Critical Care Critical Care patient: Yes Total Critical Care Time (in minutes): 45 Critical Care Statement: The care of this patient involved high complexity decision making to prevent further life threatening deterioration of the patient 's condition and/or to evalute & treat vital organ system(s) failure or risk of failure.
[2016-10-19] MEDS ORDERED: methylPREDNISolone NA SUCC 125 MG/2 ML VIAL ONE (13:05)
--- NOTE | 2016-10-19 13:05 | EKG ---
Test Reason : Blood Pressure : / mmHG Vent. Rate : 089 BPM Atrial Rate : 089 BPM P-R Int : 000 ms QRS Dur : 170 ms QT Int : 396 ms P-R-T Axes : 000 070 042 degrees QTc Int : 481 ms NORMAL SINUS RHYTHM RIGHT BUNDLE BRANCH BLOCK ABNORMAL ECG WHEN COMPARED WITH ECG OF 09-DEC-2015 13:24, SINUS RHYTHM HAS REPLACED ATRIAL FLUTTER CLINICAL CORRELATION IS RECOMMENDED Confirmed by ABELARDO DANIELS, GATO ([id number]) on 10/19/2016 1:04:56 PM Referred By: Confirmed By:GATO ZHOU MD
--- NOTE | 2016-10-19 15:36 | PN ---
Progress Note (short form) - Note Progress Note: Patient seen - consult dictated. 86 year old with multiple medical problems presents with shortness of breath and dyspnea with significant anemia. Describes some hemorrhoidal bleeding, but stool guaic negative and patient states most of his bowel movements are not melanotic, and not associated with blood. Had transfusion in past - last year and had no antibodies. Now with cold antibodies , and warm auto antibodies. Has received one unit of the least incompatible blood. In view of the cold antibody needs to be transfused with blood warmer. Current antibodies could be related to prior transfusions, but will screen with additional tests. Hct 20% , and will screen for hemolysis. Reverse A/G ratio and will check protein studies. For now: PRN transfusion with the least incompatible blood and with warm water bath.
--- NOTE | 2016-10-19 15:53 | CONS ---
DATE OF CONSULTATION: 10/19/2016 This 86-year-old was admitted on October 18, 2016, with shortness of breath and difficulty breathing. His past history includes that of hypertension, coronary artery disease, left ventricular diastolic and systolic dysfunction, pulmonary hypertension, atrial fibrillation status post Cryomaze, COPD, and hyperlipidemia. He presented with progressive shortness of breath and dyspnea. He presented with anemia and was noted to have a cold agglutinin as well as a warm antibody and has received 1 unit of packed cells, receiving the least incompatible cells. 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 There is a history of COPD. He has a history of pulmonary hypertension. He has a history of pulmonary embolus. Patient is on anticoagulation with Coumadin. Patient is a former smoker. He quit in 1984. Denies alcohol. Denies allergies. HOME MEDICINES: Have included Lasix, Cozaar 25, Toprol 50, Aldactone 25, and Coumadin 25. FAMILY HISTORY: Positive for father with heart disease, a sister with cancer, brother with prostate cancer, lung cancer, pancreatic cancer in brothers. REVIEW OF SYSTEMS: The patient denies headaches. Patient denies diplopia. Has epistaxis. Denies dysphagia. Has shortness of breath with difficulty breathing. Denies chest pain. Has blood per rectum but recently has had normal-color stools. Does have hemorrhoids. States that he has his hemorrhoids bleeding when he is constipated. Has no dysuria, hematuria. Has occasional nocturia. Has lower extremity edema. PHYSICAL EXAMINATION: Vital Signs: BP 116/61; pulse 87, irregular; respiratory rate 18; afebrile. HEENT: TAM. EOM intact. Oropharynx: Tongue with decreased papillation. No pharyngitis. Lymphatics: No cervical or supraclavicular nodes. Lungs: With rales, rhonchi, and wheezing posteriorly. Cardiac: Atrial fibrillation, systolic murmur. Abdomen: Somewhat distended, with umbilical hernia. Extremities: With lower extremity edema and stasis changes. LABORATORY: WBC 3.2; hematocrit 21.4; hemoglobin 6.8; MCV of 100; platelets 129 ,000; 77 polys, 11 lymphs, 10 monocytes. INR 2.96. Sodium 135, potassium 6.1, chloride 98, CO2 of 31, BUN 43, creatinine 1.7, OT 19, PT 14, alkaline phosphatase 96, protein 8.4, albumin 3.0. Occult blood stool negative. Chest x-ray: Large heart, prominent right hilum. IMPRESSION: 1. Anemia, questionable blood loss, questionable other; currently macrocytosis which may be related to agglutination. We will need to review smear. Shortness of breath and dyspnea, may be a combination of congestive heart failure and chronic obstructive pulmonary disease. Gastrointestinal bleeding, past history of diverticular disease. 2. Hypertension, under therapy. 3. Atrial fibrillation. 4. History of atrial septal defect repair. 5. Warm antibody and cold antibody. This was previously not present in transfusion 1 year earlier. For cold antibodies, we will check mycoplasma pneumonia, cold agglutinins. For warm antibodies, we will check collagen screening. To begin, patient will need to be transfused with the least incompatible blood. TEMO FORD M.D. [id number] MTDD
[2016-10-19] MEDS ORDERED: PANTOPRAZOLE SODIUM 100 ML IVPB ONE (18:00)
[2016-10-19 18:43] LABS: BASOPHIL 0.1 % (0-2.0); EOSINOPHIL 0.2 % (0-4.5); MCH 31.8 pg (25.7-33.7); MCHC 32.8 g/dl (32.0-35.9); NEUTROPHILS 87.3 % (42.8-82.8); PLATELET COUNT 135 K/MM3 (134-434); WHITE BLOOD COUNT 2.6 K/mm3 (4.0-10.0)
[2016-10-19 19:07] LABS: CALCIUM 8.3 mg/dL (8.5-10.1)
[2016-10-19 19:08] LABS: COCKROFT - GAULT 40.26; CREATININE 1.7 mg/dL (0.7-1.3)
[2016-10-19] MEDS ORDERED: ALBUTEROL SO4 2.5/IPRATROPIUM 0.5 INH SOL 3 ML VIAL.NEB. NEB PRN (19:19)
[2016-10-19] MEDS ORDERED: methylPREDNISolone NA SUCC 40 MG/1 ML VIAL IVPB ONE (20:45)
[2016-10-19] MEDS: POLYETHYLENE GLYCOL 3350 119 GM BTL PO SCH (21:19)
[2016-10-19] MEDS: DOCUSATE SODIUM 100 MG CAPSULE (FP) PO SCH (21:19)
[2016-10-19] MEDS ORDERED: MUPIROCIN 2% TOPICAL OINTMENT FOR DECOLONIZATION NS SCH (22:00)
[2016-10-19] MEDS ORDERED: CHLORHEXIDINE GLUCONATE 4% CLEANSER FOR DECOLONIZATION TP SCH (22:00)
[2016-10-20 06:41] LABS: BASOPHIL 0.1 % (0-2.0); EOSINOPHIL 0.3 % (0-4.5); MCH 32.3 pg (25.7-33.7); MCHC 32.6 g/dl (32.0-35.9); MEAN PLT VOLUME 6.9 fl (7.5-11.1); NEUTROPHILS 78.6 % (42.8-82.8); PLATELET COUNT 142 K/MM3 (134-434); RDW 20.5 % (11.9-15.9); WHITE BLOOD COUNT 3.4 K/mm3 (4.0-10.0)
[2016-10-20 07:13] LABS: CALCIUM 8.3 mg/dL (8.5-10.1)
[2016-10-20 07:16] LABS: COCKROFT - GAULT 45.29; CREATININE 1.5 mg/dL (0.7-1.3)
[2016-10-20] MEDS ORDERED: SODIUM POLYSTYRENE SULFONATE 15 GM/60 ML BOTTLE PO ONE (08:46)
--- NOTE | 2016-10-20 09:09 | PN ---
Physical Exam: SUBJECTIVE: Patient seen and examined patient sitting comfortably in bed MD 95, spo2 100 on 2 L nasal canula bp 115/65 Patient received one PC yesterday Hb 8.1 Patient has passed one to two drops blood after defecation, blood on outer surface of stool, Could be from internal haemorrhoid coomb test positive OBJECTIVE: Vital Signs Period Temp Pulse Resp BP Sys/Brian Pulse Ox Last 24 Hr 96.9 F-98.2 F 87-96 16-21 103-123/57-72 100-100 GENERAL: The patient is awake, alert, and fully oriented, in no acute distress. NECK: Trachea midline, full range of motion, supple. LUNGS: Breath sounds equal, clear to auscultation bilaterally, no wheezes, mild crackles in base , no accessory muscle use. HEART:s1s2 normal ABDOMEN: Soft, nontender, nondistended, normoactive bowel sounds, no guarding, no rebound EXTREMITIES: 2+ pulses, warm, pedal edema 1+ NEUROLOGICAL: Cranial nerves II through XII grossly intact. PSYCH: Normal mood, normal affect. SKIN: Warm, dry, Laboratory Results - last 24 hr 10/18/16 10/19/16 10/19/16 14:34 12:14 18:00 WBC 2.6 L RBC 2.55 L Hgb 8.1 L D Hct 24.8 L D MCV 97.0 H MCHC 32.8 RDW 19.0 H Plt Count 135 MPV 7.0 L Neutrophils % 87.3 H Lymphocytes % 6.9 L D Monocytes % 5.5 Eosinophils % 0.2 Basophils % 0.1 Retic Count Sodium Potassium Chloride Carbon Dioxide Anion Gap BUN Creatinine POC Glucometer [id number] Random Glucose Calcium LD Total Globulin Albumin/Globulin Ratio IgG IgA IgM Rheumatoid Factor Blood Type O POSITIVE Antibody Screen Positive H Antibody Identification WARM AUTOIMMUNE HEMO ANEMIA Direct Antiglob Test Positive H Crossmatch See Detail 10/19/16 10/20/16 10/20/16 18:00 05:25 05:25 WBC 3.4 L D RBC 2.52 L Hgb 8.1 L Hct 25.0 L MCV 99.0 H MCHC 32.6 RDW 20.5 H Plt Count 142 MPV 6.9 L Neutrophils % 78.6 Lymphocytes % 10.1 D Monocytes % 10.9 H D Eosinophils % 0.3 Basophils % 0.1 Retic Count Sodium 135 L 136 Potassium 5.0 5.1 Chloride 97 L 97 L Carbon Dioxide 27 32 Anion Gap 11 7 L BUN 42 H 44 H Creatinine 1.7 H 1.5 H POC Glucometer Random Glucose 180 H D 136 H D Calcium 8.3 L 8.3 L LD Total 164 157 Globulin Albumin/Globulin Ratio IgG IgA IgM Rheumatoid Factor Blood Type Antibody Screen Antibody Identification Direct Antiglob Test Crossmatch 10/20/16 10/20/16 10/20/16 05:25 05:25 05:25 WBC RBC Hgb Hct MCV MCHC RDW Plt Count MPV Neutrophils % Lymphocytes % Monocytes % Eosinophils % Basophils % Retic Count 4.64 H D Sodium Potassium Chloride Carbon Dioxide Anion Gap BUN Creatinine POC Glucometer Random Glucose Calcium LD Total Globulin Cancelled Albumin/Globulin Ratio Cancelled IgG Cancelled IgA Cancelled IgM Cancelled Rheumatoid Factor < 10.0 Blood Type Antibody Screen Antibody Identification Direct Antiglob Test Crossmatch 10/20/16 08:20 WBC RBC Hgb Hct MCV MCHC RDW Plt Count MPV Neutrophils % Lymphocytes % Monocytes % Eosinophils % Basophils % Retic Count Sodium Potassium Chloride Carbon Dioxide Anion Gap BUN Creatinine POC Glucometer Random Glucose Calcium LD Total Globulin Albumin/Globulin Ratio IgG IgA IgM Rheumatoid Factor Blood Type Antibody Screen Antibody Identification Direct Antiglob Test Positive H Crossmatch Active Medications Generic Name Dose Route Start Last Admin Trade Name Freq PRN Reason Stop Dose Admin Albuterol/Ipratropium 1 amp 10/19/16 19:19 Duoneb - NEB Q4H PRN SHORTNESS OF BREATH Chlorhexidine Gluconate 1 applic 10/19/16 22:00 10/19/16 21:19 Hibiclens For Decolonization - TP 1 applic HS RUBIA Administration Docusate Sodium 100 mg 10/19/16 22:00 10/19/16 21:19 Colace - PO Not Given BID RUBIA Furosemide 40 mg 10/20/16 10:00 Lasix - PO DAILY RUBIA Losartan Potassium 25 mg 10/20/16 10:00 Cozaar - PO DAILY RUBIA Metoprolol Succinate 50 mg 10/20/16 10:00 Toprol Xl - PO DAILY RUBIA Mupirocin 1 applic 10/19/16 22:00 10/19/16 21:18 Bactroban Ointment (For Decolonization) - NS 10/23/16 21:59 1 applic BID RUBIA Administration Polyethylene Glycol 17 gm 04/11/17 22:00 10/19/16 21:19 Miralax (For Daily Use) - PO Not Given BID RUBIA ASSESSMENT/PLAN: Gi bleed with anemia, could be from internal haemorrhoids hb 8.1, after one pc monitor haemoglobin gastroentrology on case give stool softener for haemorrhoids, avoid constipation and straining coomb test positive His last endoscopy/colonoscopy was in December which showed antral ulcers, colonic ulcers and severe diverticulosis. Dyspnea could be due to anemia, less likely from chronic chf improved spo2 98 % on 2 L nasal canula [place] on ckd improved monitor cr avoid nephrotoxic drugs acute on chronic CHF continue with lasix 40 mg po daily daily weight intake/ output H/o cad/ afib hold coumadin in view of anemia and gi bleed rate control with toprol xl [id number] score of 5 h/o copd not active on duoneb q4h prn Fluid: orally allowed electrolyte : repeat in am nutrition; clear liquid dvt pro : scd b/l gi pro : on protonix dispo ; admit in icu Visit type - Emergency Visit Emergency Visit: Yes ED Registration Date: 10/18/16 Care time: The patient presented to the Emergency Department on the above date and was hospitalized for further evaluation of their emergent condition. - New Patient This patient is new to me today: No - Critical Care Critical Care patient: Yes Total Critical Care Time (in minutes): 45 Critical Care Statement: The care of this patient involved high complexity decision making to prevent further life threatening deterioration of the patient 's condition and/or to evalute & treat vital organ system(s) failure or risk of failure.
[2016-10-20] MEDS: DOCUSATE SODIUM 100 MG CAPSULE (FP) PO SCH (09:37)
[2016-10-20] MEDS: POLYETHYLENE GLYCOL 3350 119 GM BTL PO SCH (09:38)
[2016-10-20] MEDS ORDERED: LOSARTAN POTASSIUM 25 MG TABLET PO SCH (10:00)
[2016-10-20] MEDS ORDERED: FUROSEMIDE 40 MG TABLET (FP) PO SCH (10:00)
[2016-10-20] MEDS ORDERED: METOPROLOL SUCCINATE 50 MG TAB.SR.24H (FP) PO SCH (10:00)
[2016-10-20 10:40] VITALS: TEMP 97.8
--- NOTE | 2016-10-20 11:51 | PN ---
Teaching Attending Note Name of Resident: Cristian Lewis ATTENDING PHYSICIAN STATEMENT I saw and evaluated the patient. I reviewed the resident's note and discussed the case with the resident. I agree with the resident's findings and plan as documented. SUBJECTIVE: Pt seen and examined in the ICU. Transfused 1 unit PRBC yesterday with appropriate response in H/H. Denies chest pain or shortness of breath. Brown stools overnight. OBJECTIVE: Last Vital Signs Temp Pulse Resp BP Pulse Ox 97.8 F 97 H 20 113/63 100 10/20/16 10:00 10/20/16 10:00 10/20/16 10:00 10/20/16 10:00 10/20/16 08:19 Intake & Output 10/17/16 10/18/16 10/19/16 10/20/16 23:59 23:59 23:59 23:59 Intake Total 740 240 Output Total 500 1200 400 Balance -500 -460 -160 Weight 205 lb 203 lb 8 oz Gen: NAD at rest Heart: irregular Lung: decreased breath sounds at the bases Abd: soft, nontender Ext: trace edema CBC, BMP 10/20/16 05:25 10/20/16 05:25 INR, PTT INR 2.96 (0.82-1.09) H 10/19/16 05:20 Active Medications Albuterol/Ipratropium (Duoneb -) 1 amp NEB Q4H PRN PRN Reason: SHORTNESS OF BREATH Chlorhexidine Gluconate (Hibiclens For Decolonization -) 1 applic TP HS [facility] Last Admin: 10/19/16 21:19 Dose: 1 applic Docusate Sodium (Colace -) 100 mg PO BID RUBIA Last Admin: 10/20/16 09:37 Dose: 100 mg Furosemide (Lasix -) 40 mg PO DAILY [facility] Last Admin: 10/20/16 09:37 Dose: 40 mg Losartan Potassium (Cozaar -) 25 mg PO DAILY [facility] Last Admin: 10/20/16 09:36 Dose: 25 mg Metoprolol Succinate (Toprol Xl -) 50 mg PO DAILY [facility] Last Admin: 10/20/16 09:37 Dose: 50 mg Mupirocin (Bactroban Ointment (For Decolonization) -) 1 applic NS BID [facility] Stop: 10/23/16 21:59 Last Admin: 10/19/16 21:18 Dose: 1 applic Pantoprazole Sodium (Protonix -) 40 mg PO DAILY RUBIA Polyethylene Glycol (Miralax (For Daily Use) -) 17 gm PO BID RUBIA Last Admin: 10/20/16 09:38 Dose: 17 gm ASSESSMENT AND PLAN: r/o GI Bleed Pancytopenia/Anemia s/p PRBC transfusion CAD LV Diastolic/Systolic Dysfunction Acute on Chronic Renal Failure Hyperkalemia Atrial Fibrillation COPD HTN Hyperlipidemia - monitor H/H - continue anticoagulation - kayexalate, d/c aldactone - rate controlled - inhaled bronchodilators - DVT prophylaxis - physical therapy - ambulate - ?d/c home, will speak to his PMD Problem List - Problems (1) GI bleed Code(s): K92.2 - GASTROINTESTINAL HEMORRHAGE, UNSPECIFIED Qualifiers: GI bleed type/associated pathology: diverticulosis Qualified Code(s) : K57.91 - Diverticulosis of intestine, part unspecified, without perforation or abscess with bleeding (2) Anemia Code(s): D64.9 - ANEMIA, UNSPECIFIED Qualifiers: Anemia type: iron deficiency (3) Atrial fibrillation Code(s): I48.91 - UNSPECIFIED ATRIAL FIBRILLATION Qualifiers: Atrial fibrillation type: persistent Qualified Code(s): I48.1 - Persistent atrial fibrillation (4) CAD (coronary artery disease) Code(s): I25.10 - ATHSCL HEART DISEASE OF [place] CORONARY ARTERY W/O ANG PCTRS Qualifiers: Coronary Disease-Associated Artery/Lesion type: [place] artery [place] vs. transplanted heart: [place] heart Associated angina: without angina Qualified Code(s): I25.10 - Atherosclerotic heart disease of [place] coronary artery without angina pectoris (5) Systolic and diastolic CHF, acute on chronic Code(s): I50.43 - ACUTE ON CHRONIC COMBINED SYSTOLIC AND DIASTOLIC HRT FAIL (6) Hypertension Code(s): I10 - ESSENTIAL (PRIMARY) HYPERTENSION Qualifiers: Hypertension type: essential hypertension Qualified Code(s): I10 - Essential (primary) hypertension (7) COPD (chronic obstructive pulmonary disease) Code(s): J44.9 - CHRONIC OBSTRUCTIVE PULMONARY DISEASE, UNSPECIFIED Qualifiers : COPD type: unspecified COPD Qualified Code(s): J44.9 - Chronic obstructive pulmonary disease, unspecified
--- NOTE | 2016-10-20 11:53 | PN ---
Progress Note, Physician History of Present Illness: No further hematochezia, GI input appreciated, remains in SR. - Current Medication List Current Medications: Active Medications Albuterol/Ipratropium (Duoneb -) 1 amp NEB Q4H PRN PRN Reason: SHORTNESS OF BREATH Chlorhexidine Gluconate (Hibiclens For Decolonization -) 1 applic TP HS [facility] Last Admin: 10/19/16 21:19 Dose: 1 applic Docusate Sodium (Colace -) 100 mg PO BID [facility] Last Admin: 10/20/16 09:37 Dose: 100 mg Furosemide (Lasix -) 40 mg PO DAILY [facility] Last Admin: 10/20/16 09:37 Dose: 40 mg Losartan Potassium (Cozaar -) 25 mg PO DAILY [facility] Last Admin: 10/20/16 09:36 Dose: 25 mg Metoprolol Succinate (Toprol Xl -) 50 mg PO DAILY [facility] Last Admin: 10/20/16 09:37 Dose: 50 mg Mupirocin (Bactroban Ointment (For Decolonization) -) 1 applic NS BID [facility] Stop: 10/23/16 21:59 Last Admin: 10/19/16 21:18 Dose: 1 applic Pantoprazole Sodium (Protonix -) 40 mg PO DAILY [facility] Polyethylene Glycol (Miralax (For Daily Use) -) 17 gm PO BID [facility] Last Admin: 10/20/16 09:38 Dose: 17 gm - Objective Vital Signs: Vital Signs Temperature 97.8 F 10/20/16 10:00 Pulse Rate 97 H 10/20/16 10:00 Respiratory Rate 20 10/20/16 10:00 Blood Pressure 113/63 10/20/16 10:00 O2 Sat by Pulse Oximetry (%) 100 10/20/16 08:19 Constitutional: Yes: No Distress, Calm Neck: Yes: Supple Cardiovascular: Yes: Regular Rate and Rhythm Respiratory: Yes: Regular, Diminished, On Nasal O2 Gastrointestinal: Yes: Normal Bowel Sounds, Soft, Abdomen, Obese Edema: Yes Edema: LLE: Trace, RLE: Trace Labs: CBC, BMP 10/20/16 05:25 10/20/16 05:25 INR, PTT INR 2.96 (0.82-1.09) H 10/19/16 05:20 Problem List - Problems (1) COPD (chronic obstructive pulmonary disease) Code(s): J44.9 - CHRONIC OBSTRUCTIVE PULMONARY DISEASE, UNSPECIFIED Qualifiers : COPD type: unspecified COPD Qualified Code(s): J44.9 - Chronic obstructive pulmonary disease, unspecified (2) GI bleed Code(s): K92.2 - GASTROINTESTINAL HEMORRHAGE, UNSPECIFIED Qualifiers: GI bleed type/associated pathology: diverticulosis Qualified Code(s) : K57.91 - Diverticulosis of intestine, part unspecified, without perforation or abscess with bleeding (3) Hypertension Code(s): I10 - ESSENTIAL (PRIMARY) HYPERTENSION Qualifiers: Hypertension type: essential hypertension Qualified Code(s): I10 - Essential (primary) hypertension (4) Shortness of breath Code(s): R06.02 - SHORTNESS OF BREATH (5) Anemia Code(s): D64.9 - ANEMIA, UNSPECIFIED Qualifiers: Anemia type: iron deficiency (6) Atrial fibrillation Code(s): I48.91 - UNSPECIFIED ATRIAL FIBRILLATION Qualifiers: Atrial fibrillation type: persistent Qualified Code(s): I48.1 - Persistent atrial fibrillation (7) CAD (coronary artery disease) Code(s): I25.10 - ATHSCL HEART DISEASE OF [place] CORONARY ARTERY W/O ANG PCTRS Qualifiers: Coronary Disease-Associated Artery/Lesion type: [place] artery [place] vs. transplanted heart: [place] heart Associated angina: without angina Qualified Code(s): I25.10 - Atherosclerotic heart disease of [place] coronary artery without angina pectoris (8) H/O atrial septal defect repair Code(s): Z98.89 - OTHER SPECIFIED POSTPROCEDURAL STATES * DO NOT USE * Z87.74 - PERSONAL HISTORY OF CONGENITAL MALFORM OF HEART AND CIRC SYS (9) Hypercholesterolemia Code(s): E78.0 - PURE HYPERCHOLESTEROLEMIA * DO NOT USE * (10) Rectal bleeding Code(s): K62.5 - HEMORRHAGE OF ANUS AND RECTUM (11) Right bundle branch block Code(s): I45.10 - UNSPECIFIED RIGHT BUNDLE-BRANCH BLOCK (12) Shortness of breath on exertion Code(s): R06.02 - SHORTNESS OF BREATH (13) Systolic and diastolic CHF, acute on chronic Code(s): I50.43 - ACUTE ON CHRONIC COMBINED SYSTOLIC AND DIASTOLIC HRT FAIL Assessment/Plan 10/28/2015 Echo: Normal LV size and fxn, mod decreased RV fxn, severe LAE, mild- mod CHRISTIAN, mild MR, mild-mod TR, RVSP 50-60 mmHg, mod [place], [place] 1. Resolved recurrent lower GI bleed etiology suspect internal hemorrhoidal, prior history of diverticular bleed post resection of a large rectal polyp 2. 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 Persistent atrial fibrillation post Cryo-Maze, [id number] score of 5 5. HTN 6. Hypercholesterolemia 7. ASD post surgical repair 8. Reactive airway disease/COPD 9. Anemia referable to above post transfusion 10. CKD with hyperkalemia improved post Aldactone d/c PLAN: 1. Transfuse to maintain Hg equal or > 8.0 2. Resume coumadin per INR given elevated [id number] score of 5 3. Continue Lasix 40 qd with close monitoring of renal function and electrolytes 4. Continue Toprol XL 50 qd 5. Continue Cozaar 25 qd 6. Obtain operative report from [facility] in reference to his ASD repair and Cry- Maze procedure to assess if LA appendage was resected, if not consideration for NATE closure device as alternative to chronic A/C 7. D/c planning
[2016-10-20 13:00] VITALS: BP 121/64
[2016-10-20 13:36] VITALS: PULSE 99
[2016-10-20] MEDS ORDERED: WARFARIN NA 2 MG TABLET (UD) PO ONE (18:00)
[2016-10-21] MEDS ORDERED: PANTOPRAZOLE 40 MG TABLET (FP) PO SCH (10:00)
[2016-10-21 10:11] LABS: HAPTOGLOBIN 86 mg/dL (34-200)
[2016-10-23 00:08] LABS: A/G RATIO 0.7 (0.7-1.7); ALBUMIN 3.3 g/dL (2.9-4.4); ALPHA-1-GLOBULIN 0.3 g/dL (0.0-0.4); BETA GLOBULIN 0.9 g/dL (0.7-1.3); GAMMA GLOBULIN 3.4 g/dL (0.4-1.8); GLOBULIN, TOTAL 5.1 g/dL (2.2-3.9); M-SPIKE Comment: g/dL (Not Observed); MYCOPLASMA PNEUMONIAE,IG G AB 339 U/mL (0-99); TOTAL PROTEIN 8.4 g/dL (6.0-8.5)
--- NOTE | 2016-10-23 01:09 | CONS ---
DATE OF CONSULTATION: 10/22/2016 HISTORY OF PRESENT ILLNESS: This 86-year-old male has multiple problems. These include coronary artery disease, atrial fibrillation, left ventricular systolic and diastolic heart failure, pulmonary hypertension, repair of an ASHD, COPD, pulmonary hypertension, pulmonary embolism, anticoagulation with Coumadin. He is a former smoker. The patient was recently hospitalized at [facility] and was discharged on October 20. During that hospital stay, he was found to have a warm reacting antibody as well as a cold antibody. He received 1 unit of packed cells on October 19, 2016. His hematocrit on October 20 was 25%, currently on October 22, it is 19.8 with a hemoglobin of 8.1 and now 6.3 g. WBC count has steadily declined since August 2016 and is now 2800. Platelet count is mildly depressed at 108,000. Patient has some degree of monocytosis with currently 15% monocytes. LABORATORY ASSESSMENT: On October 19 and October 20 a haptoglobin of 76 and 86. A corrected reticulocyte count which is low, and a normal LDH. This is against a hemolytic process. The patient does have a direct Carmen positivity. Patient also currently has Hematest positive stools, but his stool is quintanilla brown rather than melanotic. CURRENT MEDICATIONS: Current medicines include Unasyn, Bactroban, Ventolin, DuoNeb, Diprivan. ALLERGIES: No known allergies. PHYSICAL EXAMINATION: Vital signs: Temperature 99.4, pulse currently 76. Initially the patient presented with shortness of breath, dyspneic, hypotension, and was hypoxic requiring intubation. He was also placed on pressors. The patient is currently sedated. He is intubated. There is numerous ecchymoses on the extremities. Coronary: With atrial fibrillation. There are decreased breath sounds. Abdomen: Soft. Extremities: No significant lower extremity edema. LABORATORY: WBC 2.8, hemoglobin 6.3, hematocrit 19.8, platelets 108,000 with MCV 101, neutrophils 72%, 12 lymphocytes, 15 monocytes. INR 2.4. Chemistries: 137 sodium, potassium 4.9, chloride 98, CO2 of 33, BUN 61, creatinine 2.4, lactate 1.6, OT 46, PT 30, alkaline phosphatase 74, protein 7.3, albumin 2.9. Total bilirubin is 2.7. Peripheral smear is reviewed from October 19 and October 22. The red cells reveal some agglutination. There is some hypochromia. There is normochromia. White cells are diminished. There is 1 or 2 myeloblasts other than that seen, there is no left shift. There are normoblasts seen in the October 22 smear, and platelets seem somewhat diminished. IMPRESSION: This patient has a warm reacting antibody as well as a cold antibody. Mycoplasma titers are pending. Previous stool on October 18 was negative, currently it is positive. The patient does have a normal haptoglobin. A corrected reticulocyte count which is low, a normal LDH, all against hemolysis, yet the patient is Carmen positive. He has received previously on October 19 one unit of the least incompatible blood, currently receiving of the least incompatible blood. His bilirubin is somewhat elevated, and it will be fractionated. The patient did receive Benadryl and steroids prior to the administration of the least incompatible packed cells. While it is difficult to invoke a diagnosis of hemolysis with normal haptoglobin, low reticulocyte count and normal LDH, nonetheless the patient's hemoglobin, hematocrit has fallen from 25 to 19, and from a hemoglobin of 8.1 to 6.3 g in 2 days. The stool is quintanilla brown, albeit Hematest positive. It does not appear clinically that the patient has had gross bleeding. That being said, the possibility of hemolysis then being reconsidered. Will give a trial of 1 mg per kg daily and observe. Will maintain anticoagulation for now as well. TEMO FORD M.D. [id number]
== END 2016-10-20 14:30 | disposition home or self-care (01) | DRG 377 ==
LOC: JER 11:03 → JERBED 11:27 → JICU 15:27
PROVIDERS: ADMIT Specialist; ATTEND Specialist
PROC: 30233N1 Transfusion of Nonautologous Red Blood Cells into Peripheral Vein, Percutaneous Approach (ICD-10-PCS; principal; 2016-10-19)
DX: K92.2 Gastrointestinal hemorrhage, unspecified (principal); I50.43 Acute on chronic combined systolic (congestive) and diastolic (congestive) heart failure; I13.0 Hypertensive heart and chronic kidney disease with heart failure and stage 1 through stage 4 chronic kidney disease, or unspecified chronic kidney disease; N17.9 Acute kidney failure, unspecified; D61.818 Other pancytopenia; E78.5 Hyperlipidemia, unspecified; I25.10 Atherosclerotic heart disease of native coronary artery without angina pectoris; I27.2 Other secondary pulmonary hypertension; I48.2 Chronic atrial fibrillation; J44.9 Chronic obstructive pulmonary disease, unspecified; M19.90 Unspecified osteoarthritis, unspecified site; D64.9 Anemia, unspecified; I45.10 Unspecified right bundle-branch block; N18.9 Chronic kidney disease, unspecified; E87.5 Hyperkalemia; K64.8 Other hemorrhoids; Z87.891 Personal history of nicotine dependence; Z79.01 Long term (current) use of anticoagulants
CPT/HCPCS: 36415; 36430; 71010-TC; 80048; 80053; 81003; 82272; 82550; 82784; 83010; 83615; 83735; 83880; 84100; 84155; 84165; 84484; 85025; 85044; 85610; 85730; 86038; 86157; 86225; 86334; 86431; 86738; 86850; 86870; 86880; 86900; 86901; 86902; 86922; 93005; 93010; 94640; 94761; 99284-25; P9058

== ENCOUNTER 2016-10-22 09:58 | Inpatient (IN) | payer OTHER, MEDICARE ==
[2016-10-22 10:30] LABS: VENOUS BLOOD GAS HCO3 26.5 meq/L (19-25)
[2016-10-22 10:31] LABS: VENOUS PH 7.13 (7.32-7.42)
[2016-10-22] MEDS ORDERED: FUROSEMIDE 40 MG/4 ML INJECTABLE VIAL ONE (10:47)
[2016-10-22] MEDS ORDERED: LEVOFLOXACIN 500 MG IVPB 100 ML IVPB ONE ×2 (10:47→10:56)
[2016-10-22] MEDS ORDERED: FUROSEMIDE 40 MG/4 ML INJECTABLE VIAL IVPB ONE (10:56)
[2016-10-22] MEDS ORDERED: ETOMIDATE 20 MG/10 ML AMPUL IVPUSH ONE (10:57)
[2016-10-22] MEDS ORDERED: PROPOFOL 100 ML ONE (10:57)
[2016-10-22] MEDS ORDERED: RAPID SEQUENCE INTUBATION KIT NR ONE (10:58)
--- NOTE | 2016-10-22 11:01 | PDOC ---
History of Present Illness <Rashi Aranda - Last Filed: 10/22/16 10:59> - General History Source: Family, Primary Care Provider Exam Limitations: Other - History of Present Illness Initial Comments: 10/22/16 11:07 The patient is an 86 year old male, with a significant past medical history of asthma, anemia, CHF, AFib(on coumadin), CAD, ASD, COPD, pulmonary hypertension, LV dysfunction, hypertension, hyperlipidemia, and GI bleeding(with transfusion) , who presents to the emergency department BIBA, with AMS, shortness of breath, and respiratory failure. As per patients nephew, the patient was recently admitted on 10/18/16 to the ICU, after presenting to the ED with shortness of breath, COPD exacerbation, hypoxia, and respiratory failure. During his admission the patients hemoglobin was at 6, secondary to rectal bleeding and epistaxis. Field Investigator reports the patient received a blood transfusion during his admission. After discharge, the son reports the patient sat at home yesterday and was on O2 at all day, which is not typical of him. The patients current O2 sat is 100%. Son reports the patient took an elavil and an ambien last night, because he could not sleep. Son states he received a call from his mother, stating the patient began to grunt at approximately 04:00. Son reports going to check up on the patient at approximately 08:00, where he found the patient was AMS and continued to grunt. Son reports finding the patient with scrapes to his arm and blood stains. Son denies the patient has complained of any chest pain, diaphoresis, or palpitations. Son denies patient experienced any fever, chills, cough, or dizziness. The patients history is limited due to current clinical condition. Allergies: None reported. Past Surgical History: ASD PCP: Dr. Pfeiffer Field Investigator: Dr. Pfeiffer Zinc Plating Machine Operator: Dr. Palma <Hoang Wagner - Last Filed: 10/22/16 11:21> - General Chief Complaint: Shortness of Breath Stated Complaint: DIFFICULTY BREATHING Time Seen by Provider: 10/22/16 10:04 Past History - Past Medical History Anemia: Yes Asthma: Yes Cardiac Disorders: Yes (A-FIB) CVA: Yes (cad, asd) COPD: Yes (& pulm htn) GI Disorders: Yes (GI BLEED, WITH TRANSFUSION) HTN: Yes - Surgical History Cardiac Surgery: Yes (ASD) - Psycho/Social/Smoking Cessation Hx Anxiety: No Suicidal Ideation: No Smoking History: Unknown if ever smoked Have you smoked in the past 12 months: No If you are a former smoker, when did you quit?: 1984 Information on smoking cessation initiated: No Hx Alcohol Use: No Drug/Substance Use Hx: No Substance Use Type: None Hx Substance Use Treatment: No <Rashi Aranda - Last Filed: 10/22/16 10:59> <oHang Wagner - Last Filed: 10/22/16 11:21> - Past Medical History Allergies/Adverse Reactions: Allergies Allergy/AdvReac Type Severity Reaction Status Date / Time No Known Allergies Allergy Verified 10/18/16 11:05 Home Medications: Ambulatory Orders Losartan Potassium [Cozaar] 25 mg PO DAILY 10/18/16 Metoprolol Succinate [Toprol Xl] 50 mg PO DAILY 10/18/16 Warfarin Sodium [Coumadin] 2.5 mg PO DAILY 10/18/16 Albuterol Sulfate Inhaler - [Ventolin HFA Inhaler -] 2 puff IH PRN #1 inhaler Furosemide [Lasix -] 40 mg PO DAILY #30 tablet 10/20/16 Review of Systems - Review of Systems Able to Perform ROS?: Yes Comments:: 10/22/16 11:12 GENERAL/CONSTITUTIONAL: Yes: +grunting. No fever or chills. HEAD, EYES, EARS, NOSE AND THROAT: No change in vision. No ear pain or discharge. No sore throat. CARDIOVASCULAR: Yes: +shortness of breath. No chest pain. RESPIRATORY: Yes: +dyspnea. No cough, wheezing, or hemoptysis. GASTROINTESTINAL: No nausea, vomiting, diarrhea or constipation. GENITOURINARY: No dysuria, frequency, or change in urination. MUSCULOSKELETAL: No joint or muscle swelling or pain. No neck or back pain. SKIN: Yes: Scrapes to arms. No rash NEUROLOGIC: Yes: +Altered mental status. No headache, vertigo, loss of consciousness. ENDOCRINE: No increased thirst. No abnormal weight change. HEMATOLOGIC/LYMPHATIC: Yes: +history of rectal bleed. No history of blood clots. ALLERGIC/IMMUNOLOGIC: No hives or skin allergy. <Hoang Wagner - Last Filed: 10/22/16 11:21> *Physical Exam - Vital Signs Last Vital Signs Temp Pulse Resp BP Pulse Ox 95.7 F L 106 H 10 L 139/89 96 10/22/16 09:58 10/22/16 10:37 10/22/16 09:58 10/22/16 09:58 10/22/16 10:37 <ManojRashi - Last Filed: 10/22/16 10:59> - Vital Signs Last Vital Signs Temp Pulse Resp BP Pulse Ox 95.7 F L 106 H 10 L 139/89 96 10/22/16 09:58 10/22/16 10:37 10/22/16 09:58 10/22/16 09:58 10/22/16 10:37 - Physical Exam Comments: 10/22/16 11:12 GENERAL: Only response to deep painful stimuli. Unable to follow commands or answer questions HEAD: No signs of trauma EYES: PERRLA, EOMI, sclera anicteric, conjunctiva clear ENT: Auricles normal inspection, hearing grossly normal, nares patent, oropharynx clear without exudates. Moist mucosa NECK: Normal ROM, supple, no lymphadenopathy, JVD, or masses LUNGS: Shallow breath sounds bilaterally. No wheezes, rales, ronchi, or crackles. HEART: Regular rate and rhythm, normal S1 and S2, no murmurs, rubs or gallops ABDOMEN: Slightly distended secondary to ubilical hernia. Soft, normoactive bowel sounds. No guarding, no rebound. No masses EXTREMITIES: Normal range of motion, no edema. No clubbing or cyanosis. No cords, erythema, or tenderness NEUROLOGICAL: Cranial nerves II through XII grossly intact. SKIN: Warm, Dry, normal turgor, no rashes or lesions noted. <Hoang Wagner - Last Filed: 10/22/16 11:21> ED Treatment Course - LABORATORY CBC & Chemistry Diagram: 10/22/16 10:30 10/22/16 10:30 - ADDITIONAL ORDERS Additional order review: Laboratory Results 10/22/16 10/22/16 10:30 10:24 VBG pH 7.13 L* POC VBG pCO2 83.6 H* POC VBG pO2 28.9 Mixed VBG HCO3 26.5 H Magnesium Cancelled Creatine Kinase Cancelled Troponin I Cancelled - RADIOLOGY Radiology Studies Ordered: Category Date Time Status CHEST X-RAY PORTABLE* [RAD] Stat Radiology 10/22/16 10:04 Completed <Rashi Aranda - Last Filed: 10/22/16 10:59> - LABORATORY CBC & Chemistry Diagram: 10/22/16 10:30 10/22/16 10:30 - ADDITIONAL ORDERS Additional order review: Laboratory Results 10/22/16 10/22/16 10/22/16 10:30 10:30 10:24 VBG pH 7.13 L* POC VBG pCO2 83.6 H* POC VBG pO2 28.9 Mixed VBG HCO3 26.5 H Magnesium 2.6 H Cancelled Creatine Kinase 146 Cancelled Troponin I 0.05 D Cancelled B-Natriuretic Peptide 6630.55 H <Hoang Wagner - Last Filed: 10/22/16 11:21> Medical Decision Making - Medical Decision Making 10/22/16 11:17 Exam is consistent with CO2 narcosis. Blood gas levels also consistent with CO2 narcosis. CXR shows right lower lobe infiltrate with possible aspiration Dr. Pfeiffer was at patient's bedside. Patient was placed on BiPAP, but pt. did not turn around. Dr. Pfefifer asked anesthesia to intubate the patient. <Hoang Wagner - Last Filed: 10/22/16 11:21> *DC/Admit/Observation/Transfer - Discharge Dispostion Admit: Yes <Rashi Aranda - Last Filed: 10/22/16 10:59> - Attestations Scribe Attestion: 10/22/16 11:11 Documentation prepared by Hoang Wagner, acting as biomedical manager for Rashi Aranda DO. <Hoang Wagner - Last Filed: 10/22/16 11:21> Diagnosis at time of Disposition: COPD (chronic obstructive pulmonary disease), Aspiration into respiratory tract , CO2 narcosis, Respirations compromised - Discharge Dispostion Condition at time of disposition: Critical - Referrals Referrals: Ean Pfeiffer MD [Primary Care Provider] -
[2016-10-22 11:02] LABS: TROPONIN I 0.05 ng/ml (0.00-0.05)
[2016-10-22 11:04] LABS: MAGNESIUM 2.6 mg/dL (1.8-2.4)
[2016-10-22] MEDS ORDERED: SUCCINYLCHOLINE CHLORIDE 200 MG/10 ML VIAL IVPUSH ONE (11:07)
[2016-10-22] MEDS ORDERED: ETOMIDATE 40 MG/20 ML VIAL IVPUSH ONE (11:07)
[2016-10-22 11:10] LABS: ALBUMIN 3.1 g/dl (3.4-5.0); BILIRUBIN,TOTAL 2.7 mg/dL (0.2-1.0); CALCIUM 8.1 mg/dL (8.5-10.1); COCKROFT - GAULT 40.64; CREATININE 2.3 mg/dL (0.7-1.3); TOT PROT 8.4 g/dl (6.4-8.2)
[2016-10-22] MEDS ORDERED: PROPOFOL 100 ML IVPB ONE (11:10)
[2016-10-22 11:16] LABS: URINE APPEARANCE CLEAR; URINE COLOR AMBER; URINE GLUCOSE (UA) NEGATIVE (NEGATIVE); URINE KETONE NEGATIVE (NEGATIVE); URINE LEUK ESTERASE NEGATIVE (NEGATIVE); URINE NITRITE NEGATIVE (NEGATIVE); URINE UROBILINOGEN 4.0 E.U/dl E.U./dl (0.2-1.0)
[2016-10-22 11:17] LABS: INR 2.38 (0.82-1.09); PROTHROMBIN TIME (PATIENT) 26.6 SEC (9.98-11.88)
[2016-10-22 11:19] LABS: URINE BLOOD 1+ (NEGATIVE); URINE PROTEIN 1+ (NEGATIVE)
[2016-10-22 11:22] LABS: URINE HYALINE CAST 11 /lpf; URINE RBC 3 /hpf (0-3); URINE WBC 1 /hpf (3-5)
--- NOTE | 2016-10-22 12:04 | HP ---
[id number] an 86 year old male was brought in by EMS with acute onset of AMS, SOB, respiratory failure that began overnight and worsened this AM. As per patients nephew, the patient was recently admitted on 10/18/16 to the ICU, after presenting to the ED with shortness of breath, COPD exacerbation, hypoxia , and respiratory failure. During his admission the patients hemoglobin was at 6, secondary to rectal bleeding and epistaxis. Dr. Pennington reports the patient received a blood transfusion during his admission. After discharge, the son reports the patient sat at home yesterday and was on O2 at all day, which is not typical of him. The patients current O2 sat is 100%. Son reports the patient took an elavil and an ambien last night, because he could not sleep. Son states he received a call from his mother, stating the patient began to grunt at approximately 04:00. Son reports going to check up on the patient at approximately 08:00, where he found the patient was AMS and continued to grunt. Son reports finding the patient with scrapes to his arm and blood stains. Son denies the patient has complained of any chest pain, diaphoresis, or palpitations. Son denies patient experienced any fever, chills, cough, or dizziness. The patients history is limited due to current clinical condition. In the ER he was attempted on CPAP with a failed run and remained hypoxic where he was then intubated to achieve oxygenation and airway management. PCP: Dr. Pennington Bow Maker Custom: Dr. Pennington Parole Hearing Officer: Dr. Palma ER course was notable for: (1) hypoxia, respiratory failure ~ on bipap and then intubated (2) (3) Recent Travel: PAST MEDICAL HISTORY: asthma, anemia, CHF, AFib(on coumadin), CAD, ASD, COPD, pulmonary hypertension, LV dysfunction, hypertension, hyperlipidemia, and GI bleeding(with transfusion) PAST SURGICAL HISTORY: Social History: Smoking: former Alcohol:none Drugs: none Family History: Allergies No Known Allergies Allergy (Verified 10/18/16 11:05) HOME MEDICATIONS: Home Medications Medication Instructions Recorded Losartan Potassium [Cozaar] 25 mg PO DAILY 10/18/16 Metoprolol Succinate [Toprol Xl] 50 mg PO DAILY 10/18/16 Warfarin Sodium [Coumadin] 2.5 mg PO DAILY 10/18/16 Albuterol Sulfate Inhaler - 2 puff IH PRN #1 inhaler 10/20/16 [Ventolin HFA Inhaler -] Furosemide [Lasix -] 40 mg PO DAILY #30 tablet 10/20/16 Laboratory Tests 10/18/16 10/18/16 10/22/16 11:30 11:30 10:24 WBC 2.7 L RBC 2.10 L D Hgb 6.7 L* D Hct 20.9 L D MCV 99.2 H MCHC 32.1 RDW 19.7 H D Plt Count 117 L MPV 6.3 L Neutrophils % 54.4 Lymphocytes % 25.9 D Monocytes % 16.6 H Eosinophils % 2.7 Basophils % 0.4 INR PTT (Actin FS) VBG pH 7.13 L* POC VBG pCO2 83.6 H* POC VBG pO2 28.9 Mixed VBG HCO3 26.5 H Sodium Potassium Chloride Carbon Dioxide Anion Gap BUN Creatinine Creat Clearance w eGFR Random Glucose Lactic Acid Calcium Magnesium Total Bilirubin AST ALT Alkaline Phosphatase Creatine Kinase 68 Troponin I < 0.02 B-Natriuretic Peptide Total Protein Albumin Stool Occult Blood 10/22/16 10/22/16 10/22/16 10:30 13:12 13:40 WBC 2.8 L RBC 1.95 L D Hgb 6.3 L* D Hct 19.8 L D MCV 101.5 H MCHC 32.0 RDW 19.8 H Plt Count 108 L D MPV 7.4 L Neutrophils % 72.2 Lymphocytes % 12.3 D Monocytes % 15.1 H Eosinophils % 0.1 Basophils % 0.3 INR PTT (Actin FS) VBG pH POC VBG pCO2 POC VBG pO2 Mixed VBG HCO3 Sodium Potassium Chloride Carbon Dioxide Anion Gap BUN Creatinine Creat Clearance w eGFR Random Glucose Lactic Acid Calcium Magnesium 2.6 H Total Bilirubin AST ALT Alkaline Phosphatase Creatine Kinase 146 Troponin I 0.05 D B-Natriuretic Peptide 6630.55 H Total Protein Albumin Stool Occult Blood Positive 10/22/16 10/22/16 10/22/16 13:40 13:40 13:40 WBC RBC Hgb Hct MCV MCHC RDW Plt Count MPV Neutrophils % Lymphocytes % Monocytes % Eosinophils % Basophils % INR 2.40 H PTT (Actin FS) 32.6 D VBG pH POC VBG pCO2 POC VBG pO2 Mixed VBG HCO3 Sodium 137 Potassium 4.9 Chloride 98 Carbon Dioxide 33 H D Anion Gap 6 L BUN 61 H Creatinine 2.4 H Creat Clearance w eGFR 25.74 Random Glucose 132 H Lactic Acid 1.647 Calcium 8.4 L Magnesium Total Bilirubin 2.7 H AST 46 H ALT 30 Alkaline Phosphatase 74 Creatine Kinase Troponin I B-Natriuretic Peptide Total Protein 7.3 Albumin 2.9 L Stool Occult Blood REVIEW OF SYSTEMS unable to obtain due to pt AMS status and airway compromise. PHYSICAL EXAMINATION Vital Signs - 24 hr 10/22/16 10/22/16 10/22/16 11:05 11:09 11:20 Pulse Rate [ 94 H 98 H Apical] Respiratory 16 16 14 Rate Blood Pressure 149/81 142/81 [Left Arm] O2 Sat by Pulse 100 100 Oximetry (%) GENERAL:Altered mental status with lethargy, HEAD: Normal with no signs of trauma. EYES: Pupils equal, round and reactive to light but sluggish, does not track or follow commands NECK: Normal range of motion, supple without lymphadenopathy, JVD, or masses. LUNGS: Breath sounds diminished with rhonchi and rales throughout. accessory muscle in use HEART: Regular rate and rhythm, normal S1 and S2 without murmur, rub or gallop. ABDOMEN: Soft, nontender, not distended, normoactive bowel sounds, no guarding, no rebound, no masses. No hepatomegaly or splenomegaly. MUSCULOSKELETAL: unable to assess but pt has no deformities UPPER EXTREMITIES: 1+ pulses, cool, poor perfused. mild blue cyanosis. No clubbing. No peripheral edema. LOWER EXTREMITIES: 2+ pulses, cool poor-perfused. No calf tenderness. No peripheral edema. NEUROLOGICAL: does not follow commands, now on propafol while intubated. SKIN: Cool, dry, poor turgor, no rashes or lesions noted, normal capillary refill. ASSESSMENT/PLAN: This 86 yr old male presents to ER with SOB, AMS, respiratory failure 1. Respiratory failure -attempted bipap, now intubated -admitted to ICU and hemodynamic monitoring -maintain ox sat >90% -EtCO2 monitoring -CXR with infiltrate now on antibiotics -Follow up with Dr. Urabn on consult for appropriate antibiotic management. 2. LV dysfunctin and CAD -continue meds per ICU management 3. Diabetes -continue monitor fingersticks and glycemic control with sliding scale 4. GI, DVT ppx 5. AF with coumadin -monitor PT 6. pt is admitted to ICU Noted to have a H/H 12/27 Type and screen ordered 2 u packed RBC Problem List - Problem (1) COPD (chronic obstructive pulmonary disease) Code(s): J44.9 - CHRONIC OBSTRUCTIVE PULMONARY DISEASE, UNSPECIFIED Qualifiers : COPD type: unspecified COPD Qualified Code(s): J44.9 - Chronic obstructive pulmonary disease, unspecified Visit type - Emergency Visit Emergency Visit: Yes ED Registration Date: 10/22/16 Care time: The patient presented to the Emergency Department on the above date and was hospitalized for further evaluation of their emergent condition. - New Patient This patient is new to me today: Yes Date on this admission: 10/23/16 - Critical Care Critical Care patient: Yes Total Critical Care Time (in minutes): 60 Critical Care Statement: The care of this patient involved high complexity decision making to prevent further life threatening deterioration of the patient 's condition and/or to evalute & treat vital organ system(s) failure or risk of failure.
[2016-10-22] MEDS ORDERED: ALBUTEROL SO4 6.7 GM HFA INHALER IH SCH (12:45)
[2016-10-22] MEDS ORDERED: ALBUTEROL SO4 0.083% IH SOL 2.5 MG/3 ML VIAL.NEB. NEB PRN (12:51)
[2016-10-22] MEDS ORDERED: SODIUM CHLORIDE 500 ML IV STA ×2 (13:06→13:13)
[2016-10-22] MEDS ORDERED: SODIUM POLYSTYRENE SULFONATE 15 GM/60 ML BOTTLE PO ONE (13:30)
[2016-10-22] MEDS ORDERED: CALCIUM GLUCONATE 10% - 1,000 MG/10 ML VIAL IVPB ONE (13:30)
[2016-10-22] MEDS: ALBUTEROL SO4 2.5/IPRATROPIUM 0.5 INH SOL 3 ML VIAL.NEB. NEB SCH ×3 (13:52→23:59)
[2016-10-22] MEDS: PROPOFOL 100 ML IVPB SCH ×2 (14:00→18:30)
--- NOTE | 2016-10-22 14:03 | PN ---
Progress Note, Physician Chief Complaint: ID Full note dictated for this 86 year old male recently discharged Gi bleeding ( hemmoridal) transfusion x 1 unit discharged 10/20. Brought now hypothermic and in respiratory distress requiring intubation - Current Medication List Current Medications: Active Medications Albuterol Sulfate (Ventolin 0.083% Nebulizer Soln -) 1 amp NEB Q4H PRN PRN Reason: SHORT OF BREATH/WHEEZING Albuterol/Ipratropium (Duoneb -) 1 amp NEB QIDR [facility] Last Admin: 10/22/16 13:52 Dose: 1 amp Chlorhexidine Gluconate (Hibiclens For Decolonization -) 1 applic TP HS [facility] Propofol (Diprivan -) 100 mls @ 3.81 mls/hr IVPB TITR ONE; 5 MCG/KG/MIN PRN Reason: Protocol Stop: 10/23/16 13:24 Last Admin: 10/22/16 11:10 Dose: 3.81 mls/hr Pantoprazole Sodium (Protonix 40mg Ivpb (Pre-Docked)) 100 mls @ 200 mls/hr IVPB DAILY@2200 RUBIA Sodium Chloride (Normal Saline -) 500 mls @ 500 mls/hr IV ASDIR STA Stop: 10/22/16 14:12 Last Admin: 10/22/16 13:23 Dose: 500 mls/hr Methylprednisolone Sodium Succinate (Solu-Medrol -) 40 mg IVPB Q6H-IV [facility] Mupirocin (Bactroban Ointment (For Decolonization) -) 1 applic NS BID [facility] Stop: 10/27/16 21:59 Nystatin (Nystop Powder -) 1 applic TP DAILY [facility] Warfarin Sodium (Coumadin -) 2.5 mg PO DAILY [facility] - Objective Vital Signs: Vital Signs Temperature 98.2 F 10/22/16 13:02 Pulse Rate 77 10/22/16 13:02 Respiratory Rate 14 10/22/16 13:51 Blood Pressure 107/55 10/22/16 13:02 O2 Sat by Pulse Oximetry (%) 100 10/22/16 13:05 HENT: Yes: Other (Et tube) Cardiovascular: Yes: Regular Rate and Rhythm, S1, S2 Respiratory: Yes: WNL, Regular, CTA Bilaterally. No: Rhonchi, Wheezes Gastrointestinal: Yes: Normal Bowel Sounds, Distention, Hernia, Other ( Umbilicalhernia). No: Tenderness, Tenderness, Rebound Extremities: No: Cold, Cool, Cyanosis Edema: No Labs: INR, PTT INR 2.38 (0.82-1.09) H 10/22/16 10:30 Problem List - Problems (1) Aspiration into respiratory tract Code(s): T17.908A - UNSP FB IN RESP TRACT, PART UNSP CAUSING OTH INJURY, INIT (2) COPD (chronic obstructive pulmonary disease) Code(s): J44.9 - CHRONIC OBSTRUCTIVE PULMONARY DISEASE, UNSPECIFIED Qualifiers : (3) Anemia Code(s): D64.9 - ANEMIA, UNSPECIFIED Qualifiers: Anemia type: iron deficiency Assessment/Plan Laboratory Tests 10/22/16 10/22/16 10/22/16 10:30 10:30 10:30 INR 2.38 H BUN 55 H D Creat Clearance w eGFR 27.03 Lactic Acid 4.837 H* Assessment Respiratory failure Concern for aspiration 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
[2016-10-22] MEDS ORDERED: AMPICILLIN NA/SULBACTAM NA 3 GM in SODIUM CHLORIDE 100 ML IVPB ONE (14:08)
[2016-10-22 14:10] LABS: BASOPHIL 0.3 % (0-2.0); EOSINOPHIL 0.1 % (0-4.5); MCH 32.5 pg (25.7-33.7); MEAN CELL VOLUME 101.5 fl (80-96); MEAN PLT VOLUME 7.4 fl (7.5-11.1); NEUTROPHILS 72.2 % (42.8-82.8); PLATELET COUNT 108 K/MM3 (134-434); RDW 19.8 % (11.9-15.9); WHITE BLOOD COUNT 2.8 K/mm3 (4.0-10.0)
[2016-10-22 14:20] LABS: INR 2.4 (0.82-1.09); PROTHROMBIN TIME (PATIENT) 26.9 SEC (9.98-11.88)
--- NOTE | 2016-10-22 14:20 | CONSULT ---
Consultation: REQUESTING PROVIDER: CONSULT REQUEST: We have been asked to medically evaluate this patient for ( specify). HISTORY OF PRESENT ILLNESS:The patient is an 86 year old male was brought in by EMS with acute onset of AMS, SOB, respiratory failure that began overnight and worsened this AM. As per patients nephew, the patient was recently admitted on 10/18/16 to the ICU, after presenting to the ED with shortness of breath, COPD exacerbation, hypoxia, and respiratory failure. During his admission the patient s hemoglobin was at 6, secondary to rectal bleeding and epistaxis. Dr. Pennington reports the patient received a blood transfusion during his admission. After discharge, the son reports the patient sat at home yesterday and was on O2 at all day, which is not typical of him. The patients current O2 sat is 100% . Son reports the patient took an elavil and an ambien last night, because he could not sleep. Son states he received a call from his mother, stating the patient began to grunt at approximately 04:00. Son reports going to check up on the patient at approximately 08:00, where he found the patient was AMS and continued to grunt. Son reports finding the patient with scrapes to his arm and blood stains. Son denies the patient has complained of any chest pain, diaphoresis, or palpitations. Son denies patient experienced any fever, chills, cough, or dizziness. The patients history is limited due to current clinical condition. In ed patient was started on bipap and was later on intubated. Patient had low bp 75/40, improved aftrer 500ml fluid will give him 1 pc will put a central line patient on vcv mode sedated with propofol consult heamatology, gastroentroly, cardiology REVIEW OF SYSTEMS: unable to obtain PHYSICAL EXAMINATION Vital Signs - 24 hr 10/22/16 10/22/16 10/22/16 11:05 11:09 11:20 Temperature Pulse Rate Pulse Rate [ 94 H 98 H Apical] Respiratory 16 16 14 Rate Blood Pressure Blood Pressure 149/81 142/81 [Left Arm] O2 Sat by Pulse 100 100 Oximetry (%) 10/22/16 10/22/16 10/22/16 13:02 13:05 13:51 Temperature 98.2 F Pulse Rate 77 Pulse Rate [ Apical] Respiratory 14 14 14 Rate Blood Pressure 107/55 Blood Pressure [Left Arm] O2 Sat by Pulse 100 Oximetry (%) GENERAL: intubated and sedated NECK: Trachea midline, full range of motion, supple. LUNGS: Breath sounds equal, clear to auscultation bilaterally, no wheezes, mild crackles , no accessory muscle use. HEART:s1s2 normal ABDOMEN: Soft, nontender, nondistended, normoactive bowel sounds, no guarding, no rebound EXTREMITIES: 2+ pulses, warm, pedal edema 1+ PSYCH: Normal mood, normal affect. SKIN: Warm, dry, Laboratory Results - last 24 hr 10/22/16 13:40 WBC 2.8 L RBC 1.95 L D Hgb 6.3 L* D Hct 19.8 L D MCV 101.5 H MCHC 32.0 RDW 19.8 H Plt Count 108 L D MPV 7.4 L Neutrophils % 72.2 Lymphocytes % 12.3 D Monocytes % 15.1 H Eosinophils % 0.1 Basophils % 0.3 Active Medications Generic Name Dose Route Start Last Admin Trade Name Freq PRN Reason Stop Dose Admin Albuterol Sulfate 1 amp 10/22/16 12:51 Ventolin 0.083% Nebulizer Soln - NEB Q4H PRN SHORT OF BREATH/WHEEZING Albuterol/Ipratropium 1 amp 10/22/16 13:00 10/22/16 13:52 Duoneb - NEB 1 amp QIDR RUBIA Administration Chlorhexidine Gluconate 1 applic 10/22/16 22:00 Hibiclens For Decolonization - TP HS RUBIA Propofol 100 mls @ 3.81 mls/hr 10/22/16 11:10 10/22/16 11:10 Diprivan - IVPB 10/23/16 13:24 3.81 mls/hr TITR ONE Administration Protocol 5 MCG/KG/MIN Pantoprazole Sodium 100 mls @ 200 mls/hr 10/22/16 22:00 Protonix 40mg Ivpb (Pre-Docked) IVPB DAILY@2200 [facility] Ampicillin Sodium/Sulbactam Sodium 100 mls @ 200 mls/hr 10/22/16 18:00 Unasyn 1.5 Gm (Pre-Docked) IVPB Q8H-IV RUBIA Ampicillin Sodium/Sulbactam 100 mls @ 200 mls/hr 10/22/16 14:08 Sodium 3 gm/ Sodium Chloride IVPB 10/22/16 14:37 ONCE ONE Methylprednisolone Sodium Succinate 40 mg 10/22/16 15:00 10/22/16 14:05 Solu-Medrol - IVPB 40 mg Q6H-IV RUBIA Administration Mupirocin 1 applic 10/22/16 22:00 Bactroban Ointment (For Decolonization) - NS 10/27/16 21:59 BID RUBIA Nystatin 1 applic 10/23/16 10:00 Nystop Powder - TP DAILY [facility] ASSESSMENT/PLAN: acute hypoxic hypercapnic respiratory failure, could be from copd excerbration patient sedated and intubated on propofol patient on vcv mode fio2 50, peep 5 , TV 550, rr 14 keep spo2>90 on duoneb q6h standing and albuterol q4h repeat abg at 3:00pm repaet cxr in morning monitor vitals monitor intake/ output ID on case started on ampicillin/ salbactum will not give iv steroid, can increase chances of gi bleed anemia, could from gi bleed vs haemolytic anemia, 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 Hypotension monitor vitals bp improved after 500ml of iv fluid getting 1 pc if bP drops consider starting levophed Lacticacidosis could be from hypoxia and hypotension improved after intubation and iV fluid [place] on ckd cr increased from monitor cr 1.5 to 2.3 avoid nephrotoxic drugs will not give lot of IV fluid as patient Hb is low and it can cause haemodilation and can cause decrease in oxygen saturation. chronic CHF will hold lasix for now ( lasix po 40 ) elevated LFT could be due to shock monitor lft H/o cad/ afib hold coumadin in view of anemia and gi bleed rate control with toprol xl 50 [id number] score of [address] bailey Hyperkalemia could be from haemolysis or lactic acidosis got ca gluconate and kaxylate electrolyte : repeat K, nutrition; NPO fow nor dvt pro : scd b/l gi pro : on protonix IV bid Dispo: admit in icu Visit type - Emergency Visit Emergency Visit: Yes ED Registration Date: 10/22/16 Care time: The patient presented to the Emergency Department on the above date and was hospitalized for further evaluation of their emergent condition. - New Patient This patient is new to me today: Yes Date on this admission: 10/22/16 - Critical Care Critical Care patient: Yes Total Critical Care Time (in minutes): 45 Critical Care Statement: The care of this patient involved high complexity decision making to prevent further life threatening deterioration of the patient 's condition and/or to evalute & treat vital organ system(s) failure or risk of failure.
[2016-10-22 14:23] LABS: ACTIVATED PTT 32.6 SECONDS (26.9-34.4)
[2016-10-22 14:26] LABS: ALBUMIN 2.9 g/dl (3.4-5.0); BILIRUBIN,TOTAL 2.7 mg/dL (0.2-1.0); CALCIUM 8.4 mg/dL (8.5-10.1); COCKROFT - GAULT 13.18; CREATININE 2.4 mg/dL (0.7-1.3); TOT PROT 7.3 g/dl (6.4-8.2)
[2016-10-22] MEDS ORDERED: methylPREDNISolone NA SUCC 40 MG/1 ML VIAL IVPB SCH (15:00)
[2016-10-22] MEDS ORDERED: LIDOCAINE HCL 1%, 10 MG/ML (20ML VIAL) ONE (15:11)
--- NOTE | 2016-10-22 15:11 | CONS ---
DATE OF CONSULTATION: DATE OF DICTATION: 10/22/2016 INFECTIOUS DISEASE CONSULTATION HISTORY OF PRESENT ILLNESS: This is an 86-year-old male with a history of multiple comorbidities, admitted via EMS with acute onset of altered mental status and respiratory failure that apparently began overnight at home and worsened into this morning. The patient had been recently admitted to [facility] on October 18, 2016, for evaluation of GI bleeding and anemia. During that admission he was seen by GI and Hematology. 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 He received 1 unit of blood transfusion as his hemoglobin at that time was 6. The patient was here only 2 days. According to the notes, the son reports that the patient was on oxygen all day yesterday, which was not typical for him. He apparently took an Elavil and Ambien last night and was unable to sleep. This morning the patient was noted to be grunting with altered mental status. He had scrapes to his arm and blood stains with no obvious known history of trauma at home. He was hypothermic when he came to the hospital and there was no history of preceding fever, chills, cough, dizziness, or syncope. He required intubation as he was on CPAP initially, but failed, and is currently intubated in the ICU where his temperature was normal. PAST MEDICAL HISTORY: Includes anemia, congestive heart failure, atrial fibrillation on Coumadin, coronary artery disease, atrioseptal defect, COPD, pulmonary hypertension, and left ventricular dysfunction. MEDICATIONS: At home of losartan, metoprolol, Coumadin, Lasix, and albuterol. ALLERGIES: None known. SOCIAL HISTORY: Former smoker. Occasional alcohol use. No history of substance abuse. FAMILY HISTORY: Currently unobtainable. REVIEW OF SYSTEMS: Respiratory: Presently intubated after failing CPAP. Cardiac: History of pulmonary hypertension. No history of recent chest pain, syncope, or heart murmur. Gastrointestinal: Recent GI bleed thought due to hemorrhoids. No abdominal pain, hematemesis, blood per rectum, or tarry stools. Genitourinary: Currently incontinent of urine. No gross hematuria noted. PHYSICAL EXAMINATION: Vital Signs: When he was first admitted revealed the patient to be hypothermic. The pulse was 94, respiratory rate of 16, blood pressure of 149/81, and O2 saturation of 100. General Appearance: Altered mental status. Currently intubated. Neck: Supple without adenopathy. Lungs: Diminished breath sounds and basilar rhonchi. Heart: S1, S2, regular rhythm without audible murmur, gallop, or rub. Abdomen: Soft and nontender. Distended. Normoactive bowel sounds. No guarding or rebound. No palpable mass. Extremities: Mild cyanosis noted in the emergency room. No clubbing. No peripheral edema. LABORATORY DATA: CBC is currently pending. BUN of 55 with creatinine of 2.3, and lactic acid of 4.8. Liver enzymes with bilirubin of 2.7, AST of 46, ALT of 26, alkaline and phosphatase of 84. BDN of 3428. Cold agglutinins dated October 20, 2016, are negative. MARKO is pending. Chest x-ray was reviewed and shows no evidence of acute infiltrate. ASSESSMENT: An 86-year-old male with multiple comorbidities including chronic obstructive pulmonary disease, pulmonary hypertension, and history of atrial fibrillation on anticoagulation, who presents with altered mental status and respiratory distress requiring intubation. The possibility of aspiration was considered. Clinically he does not appear to have sepsis though his lactic acid is elevated. He has been evaluated by both Gastroenterology and Hematology for the etiology of his anemia as to whether or not he may have a hemolytic component to his anemia. PLAN: Blood cultures x2. Sputum culture. As he was only in the hospital for a brief 2 days, we will empirically treat him with ampicillin and sulbactam 3 grams followed by 1.5 grams every 8 hours. The case to be discussed with Dr. Bravo. DARIO FELIPE M.D. [id number]
[2016-10-22] MEDS ORDERED: methylPREDNISolone NA SUCC 125 MG/2 ML VIAL ONE (15:20)
[2016-10-22] MEDS ORDERED: methylPREDNISolone NA SUCC 40 MG/1 ML VIAL IVPB ONE ×2 (15:31→16:00)
[2016-10-22 16:11] LABS: ARTERIAL BLOOD GAS BASE EXCESS 4.3 meq/l (-2-2); ARTERIAL BLOOD GAS HCO3 28.6 meq/L (22-26); ARTERIAL BLOOD GAS pH 7.43 (7.35-7.45)
[2016-10-22 16:12] LABS: ALLENS TEST POSITIVE; ART PUNCT SITE RIGHT RADIAL; LPM/O2% 50%; MECH. VENT. Y; PT. ON O2? YES; TYPE OF O2 MECH VENT; VENT RATE 14; VT/PRESS 550
--- NOTE | 2016-10-22 16:27 | HP ---
Admitting History and Physical - Primary Care Physician PCP: Ean Pfeiffer - Admission Chief Complaint: AMS History of Present Illness: 86 M, With listed medical history. Recent discharge on 10/20/2016. Readmitted via the ER due to AMS, SOB, and respiratory distress that began overnight and worsened this AM. Patient noted to have a hypercapneic respiratory failure and was subsequently intubated. No gross blood loss has been noticed by his family. There was a concern for aspiration so he was seen by ID and started on IV ABX. CXR: ETT in place / questionable RLL process. Noted to have a Hgb : 6.3. On previous admissions, the patient was being worked up for a possible hemolytic process. History Source: Family Member, Medical Record Limitations to Obtaining History: Clinical Condition - Past Medical History Cardiovascular: Yes: AFIB, CAD, CHF ([place] on chronic LV systolic and diastolic heart failure), Pulmonary Hypertension, Other (REPAIR OF LARGE ASD) Pulmonary: Yes: COPD, Other (PULMONARY HYPERTENSION). No: Cancer, O2 Dependent , Previously Intubated, Pulmonary Embolus Heme/Onc: Yes: Other (PATIENT IS ON COUMADIN). No: B12 Deficiency, Bleeding Disorder Musculoskeletal: Yes: Osteoarthritis. No: Chronic low back pain ENT: Yes: Other (H/O EPISTAXSIS WITH ER VISTS TWICE OVER PAST 12 MONTHS.) - Smoking History Smoking history: Unknown if ever smoked Have you smoked in the past 12 months: No If you are a former smoker, when did you quit?: 1984 - Alcohol/Substance Use Hx Alcohol Use: No History of Substance Use: reports: None - Social History ADL: Family Assistance History of Recent Travel: No Home Medications - Allergies Allergies/Adverse Reactions: Allergies Allergy/AdvReac Type Severity Reaction Status Date / Time No Known Allergies Allergy Verified 10/18/16 11:05 - Home Medications Home Medications: Ambulatory Orders Losartan Potassium [Cozaar] 25 mg PO DAILY 10/18/16 Metoprolol Succinate [Toprol Xl] 50 mg PO DAILY 10/18/16 Warfarin Sodium [Coumadin] 2.5 mg PO DAILY 10/18/16 Albuterol Sulfate Inhaler - [Ventolin HFA Inhaler -] 2 puff IH PRN #1 inhaler Furosemide [Lasix -] 40 mg PO DAILY #30 tablet 10/20/16 Family Disease History - Family Disease History Family Disease History: Heart Disease: Father, Sister, CA: Brother (CVA, PROSTATE CANCE,LUNG CANCER,PANCREATIC CANCER), Other: Brother Review of Systems Unable to obtain ROS, reason: not able to provide Physical Examination Vital Signs: Vital Signs Temperature 98.2 F 10/22/16 13:02 Pulse Rate 77 10/22/16 13:02 Respiratory Rate 14 10/22/16 16:19 Blood Pressure 107/55 10/22/16 13:02 O2 Sat by Pulse Oximetry (%) 100 10/22/16 13:05 Constitutional: Yes: Other (intubated and sedated on propofol) Eyes: Yes: Conjunctiva Clear, EOM Intact, Cataracts HENT: Yes: Atraumatic, Normocephalic Neck: Yes: Supple, Trachea Midline Cardiovascular: Yes: Pulse Irregular Respiratory: Yes: Mechanically Ventilated, Rhonchi, Wheezes. No: Accessory Muscle Use, Rales Gastrointestinal: Yes: Normal Bowel Sounds, Soft, Abdomen, Obese ...Rectal Exam: No: Deferred Renal/: Yes: WNL Musculoskeletal: Yes: WNL Extremities: Yes: WNL Edema: No Peripheral Pulses WNL: Yes Integumentary: Yes: WNL Neurological: Yes: Other (sedated) Labs: CBC, BMP 10/22/16 13:40 10/22/16 13:40 Imaging - Results Chest X-ray: Report Reviewed, Image Reviewed Problem List - Problems (1) Aspiration into respiratory tract Code(s): T17.908A - UNSP FB IN RESP TRACT, PART UNSP CAUSING OTH INJURY, INIT (2) CO2 narcosis Code(s): R06.89 - OTHER ABNORMALITIES OF BREATHING (3) COPD (chronic obstructive pulmonary disease) Code(s): J44.9 - CHRONIC OBSTRUCTIVE PULMONARY DISEASE, UNSPECIFIED Qualifiers : (4) Anemia Code(s): D64.9 - ANEMIA, UNSPECIFIED Qualifiers: Anemia type: iron deficiency (5) GI bleed Code(s): K92.2 - GASTROINTESTINAL HEMORRHAGE, UNSPECIFIED Qualifiers: GI bleed type/associated pathology: diverticulosis Qualified Code(s) : K57.91 - Diverticulosis of intestine, part unspecified, without perforation or abscess with bleeding (6) Rectal bleeding Code(s): K62.5 - HEMORRHAGE OF ANUS AND RECTUM (7) Severe anemia Code(s): D64.9 - ANEMIA, UNSPECIFIED (8) Systolic and diastolic CHF, acute on chronic Code(s): I50.43 - ACUTE ON CHRONIC COMBINED SYSTOLIC AND DIASTOLIC HRT FAIL (9) Atrial fibrillation Code(s): I48.91 - UNSPECIFIED ATRIAL FIBRILLATION Qualifiers: Atrial fibrillation type: persistent Qualified Code(s): I48.1 - Persistent atrial fibrillation (10) CAD (coronary artery disease) Code(s): I25.10 - ATHSCL HEART DISEASE OF [place] CORONARY ARTERY W/O ANG PCTRS Qualifiers: Coronary Disease-Associated Artery/Lesion type: [place] artery [place] vs. transplanted heart: [place] heart Associated angina: without angina Qualified Code(s): I25.10 - Atherosclerotic heart disease of [place] coronary artery without angina pectoris (11) H/O atrial septal defect repair Code(s): Z98.89 - OTHER SPECIFIED POSTPROCEDURAL STATES * DO NOT USE * Z87.74 - PERSONAL HISTORY OF CONGENITAL MALFORM OF HEART AND CIRC SYS (12) Hypercholesterolemia Code(s): E78.0 - PURE HYPERCHOLESTEROLEMIA * DO NOT USE * (13) Hypertension Code(s): I10 - ESSENTIAL (PRIMARY) HYPERTENSION Qualifiers: Hypertension type: essential hypertension Qualified Code(s): I10 - Essential (primary) hypertension (14) Right bundle branch block Code(s): I45.10 - UNSPECIFIED RIGHT BUNDLE-BRANCH BLOCK Assessment/Plan PLAN: Transfusional support FFP Follow INR Follow ABG BD TX Monitor off systemic steroids for now Heme evaluation -> Dr Corbin GI evaluation -> Dr Conroy ABX per ID Check sputum and urine Daily CXR while intubated Daily sedation vacations ICU monitoring Dr Hernandez CCTime 35"
--- NOTE | 2016-10-22 16:33 | PROC ---
Central Line Insertion Indication: Poor Venous Access Risks and Benefits Explained: Yes Consent on Chart: Yes Central Line: Other Anesthesia: 1% Lidocaine Sterile Technique: Yes Ultrasound Guided Assistance: Yes Position: Right Internal Jugular Post Insertion: Yes: Bilateral Breath Sounds, Bilateral Chest Expansion, Chest X-Ray Ordered Sterile Dressing Applied: Yes
[2016-10-22 16:44] LABS: URINE APPEARANCE CLEAR; URINE BILIRUBIN NEGATIVE (NEGATIVE); URINE COLOR AMBER; URINE GLUCOSE (UA) NEGATIVE (NEGATIVE); URINE KETONE NEGATIVE (NEGATIVE); URINE LEUK ESTERASE NEGATIVE (NEGATIVE); URINE NITRITE NEGATIVE (NEGATIVE); URINE UROBILINOGEN 4.0 E.U/dl E.U./dl (0.2-1.0)
[2016-10-22] MEDS ORDERED: BENZOIN/ALOE VERA/STORAX/TOLU 58 ML BOTTLE ONE (17:22)
--- NOTE | 2016-10-22 17:30 | CON.CARD ---
Consult Consult Specialty:: Cardiology Referred by:: Ean Pfeiffer MD Reason for Consultation:: Acute respiratory failure - History of Present Illness Chief Complaint: Dyspnea History of Present Illness: Patient is an 86 year old male with underlying history of 1 vessel CAD on medical therapy, angina pectoris, history of congestive heart failure with LV systolic and diastolic LV dysfunction, history of atrial septal defect s /p open repair, persistent afib s/p CryoMaze procedure and on chronic anticoagulation ([id number] score of 4), atypical atrial flutter/atrial tachycardia, hypercholesterolemia, history of COPD, reactive airway disease, pulmonary hypertension, hyperlipidemia, GI bleed and degenerative joint disease recent discharge 10/20/2016 presented with complaints of progressively worsening SOB, found to have profound anemia Hgb 6.3, hypercapneic respiratory failure, no gross bleeding, started on empiric abx for aspiration. Allergies: NKDA - History Source History Provided By: Medical Record Limitations to Obtaining History: Intubated - Past Medical History Cardio/Vascular: Yes: AFIB, CAD, CHF ([place] on chronic LV systolic and diastolic heart failure), Pulmonary Hypertension, Other (REPAIR OF LARGE ASD) Pulmonary: Yes: COPD, Other (PULMONARY HYPERTENSION). No: Cancer, O2 Dependent , Previously Intubated, Pulmonary Embolus Musculoskeletal: Yes: Osteoarthritis. No: Chronic low back pain ENT: Yes: Other (H/O EPISTAXSIS WITH ER VISTS TWICE OVER PAST 12 MONTHS.) - Alcohol/Substance Use Hx Alcohol Use: No History of Substance Use: reports: None - Smoking History Smoking history: Unknown if ever smoked Have you smoked in the past 12 months: No If you are a former smoker, when did you quit?: 1984 - Social History ADL: Family Assistance History of Recent Travel: No Home Medications - Allergies Allergies/Adverse Reactions: Allergies Allergy/AdvReac Type Severity Reaction Status Date / Time No Known Allergies Allergy Verified 10/18/16 11:05 - Home Medications Home Medications: Ambulatory Orders Losartan Potassium [Cozaar] 25 mg PO DAILY 10/18/16 Metoprolol Succinate [Toprol Xl] 50 mg PO DAILY 10/18/16 Warfarin Sodium [Coumadin] 2.5 mg PO DAILY 10/18/16 Albuterol Sulfate Inhaler - [Ventolin HFA Inhaler -] 2 puff IH PRN #1 inhaler Furosemide [Lasix -] 40 mg PO DAILY #30 tablet 10/20/16 Family Disease History - Family Disease History Family Disease History: Heart Disease: Father, Sister, CA: Brother (CVA, PROSTATE CANCE,LUNG CANCER,PANCREATIC CANCER), Other: Brother Review of Systems Unable to obtain ROS, reason: Sedated and intubaed Vital Signs: Vital Signs Temperature 98.2 F 10/22/16 13:02 Pulse Rate 77 10/22/16 13:02 Respiratory Rate 14 10/22/16 16:19 Blood Pressure 107/55 10/22/16 13:02 O2 Sat by Pulse Oximetry (%) 100 10/22/16 13:05 Respiratory: Yes: Intubated, Mechanically Ventilated, Rhonchi Gastrointestinal: Yes: Normal Bowel Sounds, Soft Cardiovascular: Yes: Pulse Irregular JVD: No Carotid Bruit: No Heart Sounds: Yes: S1, S2 Murmur: Yes: Systolic Murmur, Grade 1 Edema: No - Other Data Labs, Other Data: CBC, BMP 10/22/16 13:40 10/22/16 13:40 INR, PTT INR 2.40 (0.82-1.09) H 10/22/16 13:40 Afib @ 98 RBBB lateral T w changes Ejection Fraction %: LVEF > or = 40 % Imaging - Results Chest X-ray: Report Reviewed (Slight increase in central markings) Problem List - Problems (1) Aspiration into respiratory tract Code(s): T17.908A - UNSP FB IN RESP TRACT, PART UNSP CAUSING OTH INJURY, INIT Qualifiers: Encounter type: initial encounter Qualified Code(s): T17.908A - Unspecified foreign body in respiratory tract, part unspecified causing other injury, initial encounter (2) CO2 narcosis Code(s): R06.89 - OTHER ABNORMALITIES OF BREATHING (3) COPD (chronic obstructive pulmonary disease) Code(s): J44.9 - CHRONIC OBSTRUCTIVE PULMONARY DISEASE, UNSPECIFIED Qualifiers : COPD type: unspecified COPD Qualified Code(s): J44.9 - Chronic obstructive pulmonary disease, unspecified (4) Severe anemia Code(s): D64.9 - ANEMIA, UNSPECIFIED (5) Shortness of breath Code(s): R06.02 - SHORTNESS OF BREATH (6) Systolic and diastolic CHF, acute on chronic Code(s): I50.43 - ACUTE ON CHRONIC COMBINED SYSTOLIC AND DIASTOLIC HRT FAIL (7) Atrial fibrillation Code(s): I48.91 - UNSPECIFIED ATRIAL FIBRILLATION Qualifiers: Atrial fibrillation type: persistent Qualified Code(s): I48.1 - Persistent atrial fibrillation (8) CAD (coronary artery disease) Code(s): I25.10 - ATHSCL HEART DISEASE OF [place] CORONARY ARTERY W/O ANG PCTRS Qualifiers: Coronary Disease-Associated Artery/Lesion type: [place] artery [place] vs. transplanted heart: [place] heart Associated angina: without angina Qualified Code(s): I25.10 - Atherosclerotic heart disease of [place] coronary artery without angina pectoris (9) H/O atrial septal defect repair Code(s): Z98.89 - OTHER SPECIFIED POSTPROCEDURAL STATES * DO NOT USE * Z87.74 - PERSONAL HISTORY OF CONGENITAL MALFORM OF HEART AND CIRC SYS (10) Hypercholesterolemia Code(s): E78.0 - PURE HYPERCHOLESTEROLEMIA * DO NOT USE * (11) Hypertension Code(s): I10 - ESSENTIAL (PRIMARY) HYPERTENSION Qualifiers: Hypertension type: essential hypertension Qualified Code(s): I10 - Essential (primary) hypertension (12) Right bundle branch block Code(s): I45.10 - UNSPECIFIED RIGHT BUNDLE-BRANCH BLOCK Assessment/Plan 10/28/2015 Echo: Normal LV size and fxn, mod decreased RV fxn, severe LAE, mild- mod CHRISTIAN, mild MR, mild-mod TR, RVSP 50-60 mmHg, mod AR, [place] 1. Acute hypercapneic respiratory failure sedated and ventilated 2. Resolved recurrent lower GI bleed etiology suspect internal hemorrhoidal, prior history of diverticular bleed post resection of a large rectal polyp 3. Chronic diastolic heart failure with moderate to severe degree of pulmonary HTN 4. 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 Persistent atrial fibrillation post Cryo-Maze, [id number] score of 5 with therapeutic INR 6. HTN 7. Hypercholesterolemia 8. ASD post surgical repair 9. Reactive airway disease/COPD 10. Pancytopenia post transfusion, possible hemolysis vs bone marrow suppression 11. Acute on CKD PLAN: 1. Transfuse to maintain Hg equal or > 8.0 with hold coumadin recognizing elevated [id number] score of 5 2. Vent support per ABG, BD as needed, empiric abx 3. Hold Lasix 40 qd, Toprol XL 50 qd and Cozaar 25 qd pending hemodynamic stabilization with close monitoring of renal function and electrolytes 4. Obtain operative report from [facility] in reference to his ASD repair and Cry- Maze procedure to assess if LA appendage was resected, if not consideration for NATE closure device as alternative to chronic A/C 5. Thank you for consultative opportunity
[2016-10-22 17:39] LABS: URINE BLOOD 3+ (NEGATIVE); URINE PROTEIN 1+ (NEGATIVE)
[2016-10-22] MEDS: NYSTATIN POWDER 100,000 UNITS/GM - 15 GM TOPICAL POWDER TP SCH (18:05)
[2016-10-22] MEDS: AMPICILLIN NA/SULBACTAM NA 100 ML IVPB SCH (18:05)
[2016-10-22 18:06] LABS: URINE MARIJUANA THC NEGATIVE ng/ml (CUTOFF=50)
[2016-10-22 19:04] VITALS: BMI 29.9
[2016-10-22 19:12] LABS: URINE HYALINE CAST 16 /lpf; URINE MUCUS RARE; URINE RBC 23 /hpf (0-3); URINE WBC 5 /hpf (3-5)
--- NOTE | 2016-10-22 19:18 | PN ---
Progress Note (short form) - Note Progress Note: Patient seen and examined. Previously seen 10/19 when patient found to have anemia with warm and cold reacting antibodies. These were not present in prior blood transfused in 2016. Patient was treated with one unit of the least incompatible blood on 10/19. Patient was discharged 10/20 with Hct -25% and with Hb- 8.1 gm. Patient returns now with fall in Hb to 6.3 gm and Hct-19.8%. Stool is now hematest positive , but stool color is quintanilla-brown suggesting an insignificant amount of GI blood loss. The patient is Carmen positive and the possibility of hemolysis is raised. The problem is that the LDH is normal, the haptoglobin x 2 is elevated, and the corrected reticulocyte count is less than 1.0. This is against a hemolytic process. I have reviewed the smears from 10/19 and from today 10/22. There are no schistocytes. There is some agglutination , hypochromia and nc/nc cells. On todays smear there are normoblasts, and there are increased monos with 2 myeloblasts seen. The platelets are diminished. The normoblasts may reflect the hypoxemia on admission. The dilemma then is that I cannot prove hemolysis , and it does not appear that the patient has had enough of a GI bleed to drop his Hb/Hct to such a degree over 48 hours. Will therefore continue and observe INR without reversing. If significant bleed, will reverse. Will also treat for hemolysis giving 1 mg/kg of prednisone equivalent. ( patient received 125 mg of solumedrol prior to receiving incompatible unit of packed cells) Patient will need flow cytometry - in view of pancytopenia. He may require a bone marrow. Sono of the liver and spleen to be performed. Repeat haptoglobin, LDh< retic, and fractionation of bilirubin. .
[2016-10-22] MEDS ORDERED: MUPIROCIN 2% TOPICAL OINTMENT FOR DECOLONIZATION NS SCH (22:00)
[2016-10-22] MEDS ORDERED: PANTOPRAZOLE SODIUM 100 ML IVPB SCH (22:00)
[2016-10-22] MEDS ORDERED: CHLORHEXIDINE GLUCONATE 4% CLEANSER FOR DECOLONIZATION TP SCH (22:00)
[2016-10-22] MEDS ORDERED: ACETAMINOPHEN 1000 MG/100 ML VIAL (NON FORMULARY) IVPB ONE (22:02)
[2016-10-22] MEDS: PANTOPRAZOLE SODIUM 100 ML IVPB SCH (22:16)
[2016-10-22] MEDS: MUPIROCIN 2% TOPICAL OINTMENT FOR DECOLONIZATION NS SCH (22:17)
[2016-10-22] MEDS: CHLORHEXIDINE GLUCONATE 4% CLEANSER FOR DECOLONIZATION TP SCH (22:17)
--- NOTE | 2016-10-23 00:01 | CONS ---
DATE OF CONSULTATION: 10/22/2016 REQUESTING PHYSICIAN: Ean Pfeiffer MD HISTORY OF PRESENT ILLNESS: The patient is an 86-year-old male admitted to [facility] for evaluation of shortness of breath, altered mental status. He was intubated. He was recently admitted to [facility] for evaluation of anemia. He was noted to have a macrocytic anemia. He was guaiac negative at the time with no gross bleeding noted and the stool was quintanilla at that time. He was transfused. He has multiple antibodies and therefore, he had to be transfused packed red blood cells that were most compatible. He was last evaluated for anemia and rectal bleeding December 2015. At that time, on December 12, 2015, he underwent both upper endoscopy and colonoscopy, performed by Dr. Camacho. Upper endoscopy revealed a Schatzki ring in the distal esophagus, small sliding hiatal hernia, 2 small erosions in the gastric antrum and duodenal bulb as well as duodenal inflammation in the bulb and 2nd portion. Colonoscopy revealed a 4.5 cm rectal polyp, 2 polyps in the rectum measuring 1.8 x 0.5 cm as well as 1.2 cm splenic flexure polyp and severe diverticulosis throughout the entire colon. He did have rebleeding after the colonoscopy. Of note, the large polyps were removed by Dr. Camacho. I did a flexible sigmoidoscopy December 16, 2015, that revealed 2 large ulcers at the site of the previous polypectomies in the rectum and rectosigmoid colon that were not actively bleeding. These bases were broad-based and I advised observation at that point. I did note severe diverticulosis in the sigmoid and descending colon. Currently, there has been no overt bleeding, no melena, no rectal bleeding reported. However, his stool was reported as quintanilla and guaiac positive. He has been anemic since at least 2010. Review of the [employer] system reveals that it has worsened from at least September 2014 and he is maintained on Coumadin. 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 For his large atrial septal defect, he had CryoMaze procedure and correction of undescended right testicle. SOCIAL HISTORY: He is a former smoker. No history of ETOH abuse, intravenous drug abuse, illicit drugs. ALLERGIES: No known drug allergies. MEDICATIONS: Prior to admission include Cozaar, Toprol, Coumadin, Lasix, and Ventolin. He also received Elavil yesterday evening. REVIEW OF SYSTEMS: I was unable to obtain, as the patient was intubated. There has been no gross bleeding reported from the house staff or nursing staff. PHYSICAL EXAMINATION: General: The patient is found laying in his ICU bed. He is intubated. Vital Signs: Temperature 98.2, pulse 77, blood pressure 107/55. HEENT: Sclerae anicteric. Neck: Supple. Heart: Regular rate and rhythm. He did have a 2/6 systolic murmur heard best at the left sternal border. Lungs: Diminished breath sounds at the bases, however the patient gave a poor inspiratory effort. Abdomen: He had a right inguinal scar. Abdomen was somewhat protuberant. There was no tympany. He had hyperactive bowel sounds. There is no fluid wave elicited. Extremities: Revealed trace lower extremity edema in the feet and lower legs. Rectal: Digital rectal examination was already performed by [facility] staff on recent admission. Deferred another rectal examination given that he is neutropenic. LABORATORY EVALUATION: White blood count 2.8, hemoglobin 6.3, hematocrit 19.8, MCV 101.5, platelets of 108. Monocytes 15.1%. INR of 2.40. Sodium 137, potassium 4.9, chloride 98, bicarbonate 33, BUN of 61, creatinine 2.4, glucose 132, AST 46, ALT 30, alkaline phosphatase 74, total bilirubin 2.7 and albumin of 2.9. Stool guaiac was noted to be positive and quintanilla in color. RADIOLOGY REPORTS: He had a chest x-ray not read as of yet. On reviewing the chest x-ray, question if there is some central vascular congestion on the right and an enlarged heart, however, he appears rotated. IMPRESSION: An 86-year-old male with pancytopenia, respiratory failure. Unclear etiology of his pancytopenia. He is being evaluated by Hematology to exclude hematologic source such as bone marrow disorder, hemolysis would need to be considered as well. However, his LDH and haptoglobin are normal. He does have an elevated AST and total bilirubin that could coincide with the hemolysis. It will fractionate his bilirubin. I question if this may also be from passive congestion in the setting of an acute on chronic heart failure. He was noted to be guaiac positive, however, he is having no overt ongoing gastrointestinal bleeding and will continue to monitor this for now. He has had recent endoscopic evaluations; however, if melena or bright red blood per rectum ensues, then repeat evaluations would need to be considered during this admission. I would continue PPI for now in the setting of steroid use, corticosteroid therapy, which Hematology is contemplating and other recommendations will be made pending the patient's clinical course. I thank you for this consultative opportunity. QUINTIN WALLS DO CD/[id number]
[2016-10-23] MEDS ORDERED: PROPOFOL 100 ML ONE (02:40)
[2016-10-23] MEDS: AMPICILLIN NA/SULBACTAM NA 100 ML IVPB SCH ×3 (03:00→17:41)
[2016-10-23 06:28] LABS: BASOPHIL 0.1 % (0-2.0); MCH 32.2 pg (25.7-33.7); MCHC 33.9 g/dl (32.0-35.9); MEAN PLT VOLUME 7.4 fl (7.5-11.1); NEUTROPHILS 82.8 % (42.8-82.8); PLATELET COUNT 140 K/MM3 (134-434); RDW 20.1 % (11.9-15.9); WHITE BLOOD COUNT 2.2 K/mm3 (4.0-10.0)
[2016-10-23] MEDS: ALBUTEROL SO4 2.5/IPRATROPIUM 0.5 INH SOL 3 ML VIAL.NEB. NEB SCH ×4 (06:32→23:40)
[2016-10-23 06:45] LABS: INR 2.66 (0.82-1.09); PROTHROMBIN TIME (PATIENT) 29.8 SEC (9.98-11.88)
[2016-10-23 06:48] LABS: ACTIVATED PTT 40.7 SECONDS (26.9-34.4)
[2016-10-23 06:49] LABS: ALBUMIN 2.6 g/dl (3.4-5.0); BILIRUBIN,DIRECT 1.3 mg/dL (0.0-0.2); CALCIUM 7.8 mg/dL (8.5-10.1); COCKROFT - GAULT 33.23; CREATININE 2.1 mg/dL (0.7-1.3)
[2016-10-23 06:50] LABS: MAGNESIUM 2.3 mg/dL (1.8-2.4); PHOSPHOROUS 4.3 mg/dL (2.5-4.9)
[2016-10-23 06:52] LABS: TROPONIN I 0.13 ng/ml (0.00-0.05)
[2016-10-23 07:45] LABS: ARTERIAL BLD GAS O2 SATURATION 99.3 % (90-98.9); ARTERIAL BLOOD GAS BASE EXCESS 3.5 meq/l (-2-2); ARTERIAL BLOOD GAS HCO3 27.6 meq/L (22-26); ARTERIAL BLOOD GAS pH 7.43 (7.35-7.45)
[2016-10-23 07:46] LABS: ALLENS TEST POSITIVE; ART PUNCT SITE RIGHT RADIAL; LPM/O2% 40%; MECH. VENT. Y; PT. ON O2? YES; TYPE OF O2 MECH VENT
[2016-10-23 07:47] LABS: VENT RATE 14; VT/PRESS 550
--- NOTE | 2016-10-23 08:37 | PN ---
Progress Note (short form) - Note Progress Note: Chief Complaint: Events noted, notes reviewed, intubated and sedated, hemodynamically stable, in atrial fibrillation, rate controlled History of Present Illness: Seen and examined in the ICU. Events noted, notes reviewed, intubated and sedated, hemodynamically stable, in atrial fibrillation, rate controlled Operative report from [facility] had revealed ASD repair, Cry-Maze and ligation of LA appendage so patient will not be eligible for NATE closure device (Watchman procedure) - Current Medication List Current Medications Albuterol Sulfate (Ventolin 0.083% Nebulizer Soln -) 1 amp NEB Q4H PRN PRN Reason: SHORT OF BREATH/WHEEZING Albuterol/Ipratropium (Duoneb -) 1 amp NEB QIDR [facility] Last Admin: 10/23/16 06:32 Dose: 1 amp Chlorhexidine Gluconate (Hibiclens For Decolonization -) 1 applic TP HS [facility] Last Admin: 10/22/16 22:17 Dose: 1 applic Propofol (Diprivan -) 100 mls @ 3.81 mls/hr IVPB TITR ONE; 5 MCG/KG/MIN PRN Reason: Protocol Stop: 10/23/16 13:24 Last Admin: 10/22/16 11:10 Dose: 3.81 mls/hr Ampicillin Sodium/Sulbactam Sodium (Unasyn 1.5 Gm (Pre-Docked)) 100 mls @ 200 mls/hr IVPB Q8H-IV [facility] Last Admin: 10/23/16 03:00 Dose: 200 mls/hr Pantoprazole Sodium (Protonix 40mg Ivpb (Pre-Docked)) 100 mls @ 200 mls/hr IVPB BID [facility] Last Admin: 10/22/16 22:16 Dose: 200 mls/hr Propofol (Diprivan -) 100 mls @ 1.29 mls/hr IVPB TITR [facility]; 5 MCG/KG/MIN PRN Reason: Protocol Last Titration: 10/23/16 07:12 Dose: 35 mcg/kg/min Methylprednisolone Sodium Succinate (Solu-Medrol -) 80 mg IVPB DAILY [facility] Mupirocin (Bactroban Ointment (For Decolonization) -) 1 applic NS BID [facility] Stop: 10/27/16 21:59 Last Admin: 10/22/16 22:17 Dose: 1 applic Nystatin (Nystop Powder -) 1 applic TP DAILY [facility] Last Admin: 10/22/16 18:05 Dose: 1 applic Review of Systems Unable to obtain - Objective Vital Signs: Last Vital Signs Temp Pulse Resp BP Pulse Ox 99.5 F 72 17 100/52 100 10/23/16 04:00 10/23/16 04:00 10/23/16 07:50 10/23/16 04:00 10/22/16 21:00 Intake & Output 10/20/16 10/21/16 10/22/16 10/23/16 23:59 23:59 23:59 23:59 Intake Total 1752 790 Output Total 600 400 Balance 1152 390 Weight 209 lb Neck: Supple Negative JVD No Bruit Cardiovascular: S1 S2 Regular Rate Rhythm grade 2/6 SM Respiratory: Diminished Breath Sound at the Bases Gastrointestinal: Soft Benign Normal Bowel Sounds Ext: No Edema Labs: CBC, BMP 10/23/16 06:05 10/23/16 06:05 Assessment/Plan ASSESSMENT: 1. Acute hypercapneic respiratory failure etiology probably multi-factorial acute exacerbation of COPD, underlying anemia and 2. 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 Persistent atrial fibrillation post Cryo-Maze, [id number] score of 5, currently off of A/C 5. Wade cytopenia, post transfusion, possible hemolysis vs bone marrow suppression 6. HTN 7. Hypercholesterolemia 8. ASD post surgical repair 9. CKD PLAN: 1. Transfuse to maintain Hg equal or > 8.0 2. Recommend withholding Coumadin therapy at this point indefinitely recognizing elevated [id number] score of 5 considering the above noted presentation 3. Antibiotics as per the primary team 4. Ventilator management as per the ICU team 5. Hold Lasix 6. Resume B-Blockers Lopressor, hemodynamics permitting 7. Hold Cozaar pending renal function stabilization, and hemodynamic permitting Nova Jara MD
--- NOTE | 2016-10-23 09:05 | PN ---
Progress Note, Physician Chief Complaint: ID Remains stable in the ICU o ventilator Seen by Dr Corbin regarding possibility of hemolysis pancytopenia Steroids started AFebrile Unasyn - Current Medication List Current Medications: Active Medications Albuterol Sulfate (Ventolin 0.083% Nebulizer Soln -) 1 amp NEB Q4H PRN PRN Reason: SHORT OF BREATH/WHEEZING Albuterol/Ipratropium (Duoneb -) 1 amp NEB QIDR [facility] Last Admin: 10/23/16 06:32 Dose: 1 amp Chlorhexidine Gluconate (Hibiclens For Decolonization -) 1 applic TP HS [facility] Last Admin: 10/22/16 22:17 Dose: 1 applic Propofol (Diprivan -) 100 mls @ 3.81 mls/hr IVPB TITR ONE; 5 MCG/KG/MIN PRN Reason: Protocol Stop: 10/23/16 13:24 Last Admin: 10/22/16 11:10 Dose: 3.81 mls/hr Ampicillin Sodium/Sulbactam Sodium (Unasyn 1.5 Gm (Pre-Docked)) 100 mls @ 200 mls/hr IVPB Q8H-IV [facility] Last Admin: 10/23/16 03:00 Dose: 200 mls/hr Pantoprazole Sodium (Protonix 40mg Ivpb (Pre-Docked)) 100 mls @ 200 mls/hr IVPB BID [facility] Last Admin: 10/22/16 22:16 Dose: 200 mls/hr Propofol (Diprivan -) 100 mls @ 1.29 mls/hr IVPB TITR [facility]; 5 MCG/KG/MIN PRN Reason: Protocol Last Titration: 10/23/16 07:12 Dose: 35 mcg/kg/min Methylprednisolone Sodium Succinate (Solu-Medrol -) 80 mg IVPB DAILY [facility] Mupirocin (Bactroban Ointment (For Decolonization) -) 1 applic NS BID [facility] Stop: 10/27/16 21:59 Last Admin: 10/22/16 22:17 Dose: 1 applic Nystatin (Nystop Powder -) 1 applic TP DAILY [facility] Last Admin: 10/22/16 18:05 Dose: 1 applic - Objective Vital Signs: Vital Signs Temperature 99.5 F 10/23/16 04:00 Pulse Rate 72 10/23/16 04:00 Respiratory Rate 17 10/23/16 07:50 Blood Pressure 100/52 10/23/16 04:00 O2 Sat by Pulse Oximetry (%) 100 10/22/16 21:00 Constitutional: Yes: Well Nourished, No Distress HENT: Yes: WNL, Atraumatic Neck: Yes: WNL, Supple Cardiovascular: Yes: Regular Rate and Rhythm, S1, S2 Respiratory: Yes: WNL, Regular, CTA Bilaterally, Diminished. No: Rhonchi Gastrointestinal: Yes: WNL, Normal Bowel Sounds, Soft. No: Tenderness, Tenderness, Rebound Extremities: No: Cold, Cool, Cyanosis, Internal Rotation Edema: No Labs: CBC, BMP 10/23/16 06:05 10/23/16 06:05 INR, PTT INR 2.66 (0.82-1.09) H 10/23/16 06:05 Problem List - Problems (1) Aspiration into respiratory tract Code(s): T17.908A - UNSP FB IN RESP TRACT, PART UNSP CAUSING OTH INJURY, INIT Qualifiers: Encounter type: initial encounter Qualified Code(s): T17.908A - Unspecified foreign body in respiratory tract, part unspecified causing other injury, initial encounter (2) COPD (chronic obstructive pulmonary disease) Code(s): J44.9 - CHRONIC OBSTRUCTIVE PULMONARY DISEASE, UNSPECIFIED Qualifiers : COPD type: unspecified COPD Qualified Code(s): J44.9 - Chronic obstructive pulmonary disease, unspecified (3) Anemia Code(s): D64.9 - ANEMIA, UNSPECIFIED Qualifiers: Anemia type: iron deficiency Assessment/Plan Microbiology Laboratory Tests 10/20/16 10/22/16 10/22/16 05:25 15:45 15:45 WBC Hgb Hct Plt Count Retic Count INR ABG pH Oxygen Flow Rate BUN Creatinine Total Bilirubin AST Ur Leukocyte Esterase Negative Urine RBC 23 Opiates Screen Negative Benzodiazepines Screen Negative Cold Agglutinins Negative 10/23/16 10/23/16 10/23/16 06:05 06:05 06:05 WBC 2.2 L Hgb 7.7 L D Hct 22.7 L Plt Count 140 D Retic Count INR 2.66 H ABG pH Oxygen Flow Rate BUN 62 H Creatinine 2.1 H Total Bilirubin 2.0 H D AST 38 H Ur Leukocyte Esterase Urine RBC Opiates Screen Benzodiazepines Screen Cold Agglutinins 10/23/16 10/23/16 06:05 07:30 WBC Hgb Hct Plt Count Retic Count 3.37 H D INR ABG pH 7.43 Oxygen Flow Rate 40% BUN Creatinine Total Bilirubin AST Ur Leukocyte Esterase Urine RBC Opiates Screen Benzodiazepines Screen Cold Agglutinins Assessment Respiratory failure Ruling out hemolysis Pancytopenia but not neutropenic COPD Consideration of aspiration but thus far chest xray not impressive for infiltrates and blood cultures no growth JE and CKD Plan Sputum c/s Continue Unasyn for now May stop antibiotics soon Toxicology negative urine Steroids added 38 minutes critical care time spent today Wilmar DANIELS
[2016-10-23] MEDS: NYSTATIN POWDER 100,000 UNITS/GM - 15 GM TOPICAL POWDER TP SCH (09:13)
[2016-10-23] MEDS: MUPIROCIN 2% TOPICAL OINTMENT FOR DECOLONIZATION NS SCH ×2 (09:14→21:27)
[2016-10-23] MEDS: PANTOPRAZOLE SODIUM 100 ML IVPB SCH ×2 (09:14→21:27)
[2016-10-23] MEDS: methylPREDNISolone NA SUCC 125 MG/2 ML VIAL IVPB SCH (09:30)
[2016-10-23] MEDS ORDERED: LOSARTAN POTASSIUM 25 MG TABLET PO SCH (10:00)
[2016-10-23] MEDS ORDERED: FUROSEMIDE 40 MG/4 ML INJECTABLE VIAL IVPUSH SCH (10:00)
[2016-10-23] MEDS ORDERED: METOPROLOL SUCCINATE 50 MG TAB.SR.24H (FP) PO SCH (10:00)
[2016-10-23] MEDS ORDERED: WARFARIN NA 2.5 MG TABLET (FP) PO SCH (10:00)
[2016-10-23] MEDS ORDERED: FUROSEMIDE 40 MG TABLET (FP) PO SCH (10:00)
--- NOTE | 2016-10-23 10:27 | PN ---
Progress Note (short form) - Note Progress Note: PULMONARY/CCM Pt seen and examined in the ICU. Remains intubated, sedated. Vented on volume assist control with 40% FiO2. Last Vital Signs Temp Pulse Resp BP Pulse Ox 99.4 F 90 14 118/61 100 10/23/16 07:46 10/23/16 07:46 10/23/16 10:03 10/23/16 07:46 10/22/16 21:00 Intake & Output 10/20/16 10/21/16 10/22/16 10/23/16 23:59 23:59 23:59 23:59 Intake Total 1752 790 Output Total 600 400 Balance 1152 390 Weight 209 lb Gen: intubated, sedated Heart: RRR Lung: scattered rhonchi Abd: soft, nontender Ext: trace edema CBC, BMP 10/23/16 06:05 10/23/16 06:05 Active Medications Albuterol Sulfate (Ventolin 0.083% Nebulizer Soln -) 1 amp NEB Q4H PRN PRN Reason: SHORT OF BREATH/WHEEZING Albuterol/Ipratropium (Duoneb -) 1 amp NEB QIDR [facility] Last Admin: 10/23/16 06:32 Dose: 1 amp Chlorhexidine Gluconate (Hibiclens For Decolonization -) 1 applic TP HS [facility] Last Admin: 10/22/16 22:17 Dose: 1 applic Propofol (Diprivan -) 100 mls @ 3.81 mls/hr IVPB TITR ONE; 5 MCG/KG/MIN PRN Reason: Protocol Stop: 10/23/16 13:24 Last Admin: 10/22/16 11:10 Dose: 3.81 mls/hr Ampicillin Sodium/Sulbactam Sodium (Unasyn 1.5 Gm (Pre-Docked)) 100 mls @ 200 mls/hr IVPB Q8H-IV [facility] Last Admin: 10/23/16 09:13 Dose: 200 mls/hr Pantoprazole Sodium (Protonix 40mg Ivpb (Pre-Docked)) 100 mls @ 200 mls/hr IVPB BID [facility] Last Admin: 10/23/16 09:14 Dose: 200 mls/hr Propofol (Diprivan -) 100 mls @ 1.29 mls/hr IVPB TITR [facility]; 5 MCG/KG/MIN PRN Reason: Protocol Last Titration: 10/23/16 07:12 Dose: 35 mcg/kg/min Methylprednisolone Sodium Succinate (Solu-Medrol -) 80 mg IVPB DAILY [facility] Last Admin: 10/23/16 09:30 Dose: 80 mg Mupirocin (Bactroban Ointment (For Decolonization) -) 1 applic NS BID [facility] Stop: 10/27/16 21:59 Last Admin: 10/23/16 09:14 Dose: 1 applic Nystatin (Nystop Powder -) 1 applic TP DAILY [facility] Last Admin: 10/23/16 09:13 Dose: 1 applic A/P Acute Hypercapneic Respiratory Failure Acute COPD Exacerbation LV Diastolic Dysfunction Pulmonary HTN CAD Atrial Fibrillation Pancytopenia HTN CKD ASD s/p repair - antibiotics per ID - empiric medrol - inhaled bronchodilators - monitor H/H - transfuse as needed - lighten sedation to assess mental status - start spontaneous breathing trials when mental status improved - enteral feeds if unable to extubate - DVT/GI prophylaxis - ICU monitoring critical care time spent in reviewing chart, evaluating patient and formulating plan 38 min 1. Acute hypercapneic respiratory failure etiology probably multi-factorial acute exacerbation of COPD, underlying anemia and 2. 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 Persistent atrial fibrillation post Cryo-Maze, [id number] score of 5, currently off of A/C 5. Wade cytopenia, post transfusion, possible hemolysis vs bone marrow suppression 6. HTN 7. Hypercholesterolemia 8. ASD post surgical repair 9. CKD PLAN: 1. Transfuse to maintain Hg equal or > 8.0 2. Recommend withholding Coumadin therapy at this point indefinitely recognizing elevated [id number] score of 5 considering the above noted presentation 3. Antibiotics as per the primary team 4. Ventilator management as per the ICU team 5. Hold Lasix 6. Resume B-Blockers Lopressor, hemodynamics permitting 7. Hold Cozaar pending renal function stabilization, and hemodynamic permitting
--- NOTE | 2016-10-23 11:35 | PN ---
Progress Note (short form) - Note Progress Note: Patient seen and examined Extubated. Somewhat lethargic . Does not recall many of yesterday's details ROS No headache, some dysphagia, no diplopia , some chest pain, some SOB, dyspnea, no nausea, emesis, diarrhea, constipation, no dysuria, hematuria abdominal pain , some lower back pains Current Medications Albuterol Sulfate (Ventolin 0.083% Nebulizer Soln -) 1 amp NEB Q4H PRN PRN Reason: SHORT OF BREATH/WHEEZING Albuterol/Ipratropium (Duoneb -) 1 amp NEB QIDR [facility] Last Admin: 10/23/16 06:32 Dose: 1 amp Chlorhexidine Gluconate (Hibiclens For Decolonization -) 1 applic TP HS [facility] Last Admin: 10/22/16 22:17 Dose: 1 applic Propofol (Diprivan -) 100 mls @ 3.81 mls/hr IVPB TITR ONE; 5 MCG/KG/MIN PRN Reason: Protocol Stop: 10/23/16 13:24 Last Admin: 10/22/16 11:10 Dose: 3.81 mls/hr Ampicillin Sodium/Sulbactam Sodium (Unasyn 1.5 Gm (Pre-Docked)) 100 mls @ 200 mls/hr IVPB Q8H-IV [facility] Last Admin: 10/23/16 09:13 Dose: 200 mls/hr Pantoprazole Sodium (Protonix 40mg Ivpb (Pre-Docked)) 100 mls @ 200 mls/hr IVPB BID [facility] Last Admin: 10/23/16 09:14 Dose: 200 mls/hr Propofol (Diprivan -) 100 mls @ 1.29 mls/hr IVPB TITR RUBIA; 5 MCG/KG/MIN PRN Reason: Protocol Last Titration: 10/23/16 07:12 Dose: 35 mcg/kg/min Methylprednisolone Sodium Succinate (Solu-Medrol -) 80 mg IVPB DAILY [facility] Last Admin: 10/23/16 09:30 Dose: 80 mg Mupirocin (Bactroban Ointment (For Decolonization) -) 1 applic NS BID [facility] Stop: 10/27/16 21:59 Last Admin: 10/23/16 09:14 Dose: 1 applic Nystatin (Nystop Powder -) 1 applic TP DAILY [facility] Last Admin: 10/23/16 09:13 Dose: 1 applic HEENT: TAM, EOM Intact Oropharynx: No thrush, No mucositis Neck: Supple Cor: atrial fib Lungs:rhonchi, wheezes, diminished breath sounds Abd: Soft, Normal bowel sounds, No organomegaly, umbilical hernia, distended testes descended, uncircumcised Ext:No significant edema skin- numerous ecchymoses Skin: No rashes, Integument intact CBC, BMP 10/23/16 06:05 10/23/16 06:05 INR, PTT INR 2.66 (0.82-1.09) H 10/23/16 06:05 Impression : S/P extubation for hypercapnia COPD ASHD/CHF Atrial fib CKD Anemia- component of blood loss, but no obvious melena. Labboratory with previously high haptoglobin, normal LDH, low retic, predominantly direct bilirubin -all against hemolysis, although patient is Carmen positive with a warm and cold antibody. Neutropenia -has developed over last few months. Does raise issue of underlying MDS . Plan:: Maintain INR in therapeutic range ] Would reverse prn bleeding Hold off blood transfusions. Seems to held on to the one unit transfused. Would transfuse in warm water bath prn further fall in Hb/Hct. Flow cytometry for MDS on Tuesday. Follow CBC.
--- NOTE | 2016-10-23 12:30 | PN ---
Physical Exam: SUBJECTIVE: Patient seen and examined this morning. Pt had self extubated himself just coming off propofol and with wrist restraints in place Initially trialed on bipap now on to 50% venti mask. He is awake but somewhat lethargic. hemodynamically stable with some shortness of breath. oxygen sat stable. OBJECTIVE: Vital Signs Period Temp Pulse Resp BP Sys/Brian Pulse Ox Last 24 Hr 98.2 F-99.8 F 68-90 14-17 91-118/47-70 98-100 GENERAL: The patient is awake, alert, with some lethargy from extubatin and sedation HEAD: Normal with no signs of trauma. NECK: Trachea midline, full range of motion, supple. LUNGS: Breath sounds equal, with some rhonchi and a poor cough at times. HEART: Regular rate and rhythm, S1, S2 without murmur, rub or gallop. ABDOMEN: Soft, nontender, nondistended, normoactive bowel sounds, no guarding, no rebound, no hepatosplenomegaly, no masses. EXTREMITIES: 2+ pulses, cool, perfused, +1 edema. NEUROLOGICAL: unable to assess fully as pt is lethargic but arousalble and follows simple commands but only short term SKIN: Cool, dry, poor skin turgor, no rashes or lesions noted Laboratory Results - last 24 hr 10/22/16 10/22/16 10/22/16 13:12 13:40 13:40 WBC 2.8 L RBC 1.95 L D Hgb 6.3 L* D Hct 19.8 L D MCV 101.5 H MCHC 32.0 RDW 19.8 H Plt Count 108 L D MPV 7.4 L Neutrophils % 72.2 Lymphocytes % 12.3 D Monocytes % 15.1 H Eosinophils % 0.1 Basophils % 0.3 Retic Count INR 2.40 H PTT (Actin FS) 32.6 D Puncture Site ABG pH ABG pCO2 at Pt Temp ABG pO2 at Pt Temp ABG HCO3 ABG O2 Sat (Measured) ABG O2 Content ABG Base Excess [place] Test O2 Delivery Device Oxygen Flow Rate Vent Mode Vent Rate Mechanical Rate PEEP Pressure Support Vent Sodium Potassium Chloride Carbon Dioxide Anion Gap BUN Creatinine Creat Clearance w eGFR POC Glucometer Random Glucose Lactic Acid Calcium Phosphorus Magnesium Total Bilirubin Direct Bilirubin AST ALT Alkaline Phosphatase LD Total Creatine Kinase Troponin I B-Natriuretic Peptide Total Protein Albumin Urine Color Urine Appearance Urine pH Ur Specific [place] Urine Protein Urine Glucose (UA) Urine Ketones Urine Blood Urine Nitrite Urine Bilirubin Urine Urobilinogen Ur Leukocyte Esterase Urine RBC Urine WBC Ur Epithelial Cells Hyaline Casts Urine Mucus Stool Occult Blood Positive Opiates Screen Methadone Screen Barbiturate Screen Phencyclidine Screen Ur Amphetamines Screen MDMA (Ecstasy) Screen Benzodiazepines Screen Cocaine Screen U Marijuana (THC) Screen 10/22/16 10/22/16 10/22/16 13:40 13:40 15:45 WBC RBC Hgb Hct MCV MCHC RDW Plt Count MPV Neutrophils % Lymphocytes % Monocytes % Eosinophils % Basophils % Retic Count INR PTT (Actin FS) Puncture Site ABG pH ABG pCO2 at Pt Temp ABG pO2 at Pt Temp ABG HCO3 ABG O2 Sat (Measured) ABG O2 Content ABG Base Excess [place] Test O2 Delivery Device Oxygen Flow Rate Vent Mode Vent Rate Mechanical Rate PEEP Pressure Support Vent Sodium 137 Potassium 4.9 Chloride 98 Carbon Dioxide 33 H D Anion Gap 6 L BUN 61 H Creatinine 2.4 H Creat Clearance w eGFR 25.74 POC Glucometer Random Glucose 132 H Lactic Acid 1.647 Calcium 8.4 L Phosphorus Magnesium Total Bilirubin 2.7 H Direct Bilirubin AST 46 H ALT 30 Alkaline Phosphatase 74 LD Total Creatine Kinase Troponin I B-Natriuretic Peptide Total Protein 7.3 Albumin 2.9 L Urine Color [place] Urine Appearance Clear Urine pH 5.0 Ur Specific [place] 1.018 Urine Protein 1+ H Urine Glucose (UA) Negative Urine Ketones Negative Urine Blood 3+ H Urine Nitrite Negative Urine Bilirubin Negative Urine Urobilinogen 4.0 e.u/dl Ur Leukocyte Esterase Negative Urine RBC 23 Urine WBC 5 Ur Epithelial Cells Rare Hyaline Casts 16 Urine Mucus Rare Stool Occult Blood Opiates Screen Methadone Screen Barbiturate Screen Phencyclidine Screen Ur Amphetamines Screen MDMA (Ecstasy) Screen Benzodiazepines Screen Cocaine Screen U Marijuana (THC) Screen 10/22/16 10/22/16 10/22/16 15:45 15:50 16:47 WBC RBC Hgb Hct MCV MCHC RDW Plt Count MPV Neutrophils % Lymphocytes % Monocytes % Eosinophils % Basophils % Retic Count INR PTT (Actin FS) Puncture Site Right radial ABG pH 7.43 ABG pCO2 at Pt Temp 44.2 ABG pO2 at Pt Temp 188.0 H* D ABG HCO3 28.6 H ABG O2 Sat (Measured) 100.0 H* ABG O2 Content 8.1 L* ABG Base Excess 4.3 H [place] Test Positive O2 Delivery Device Mech vent Oxygen Flow Rate 50% Vent Mode Ac Vent Rate 14 Mechanical Rate Y PEEP 5.0 Pressure Support Vent 550 Sodium Potassium Chloride Carbon Dioxide Anion Gap BUN Creatinine Creat Clearance w eGFR POC Glucometer [phone] Random Glucose Lactic Acid Calcium Phosphorus Magnesium Total Bilirubin Direct Bilirubin AST ALT Alkaline Phosphatase LD Total Creatine Kinase Troponin I B-Natriuretic Peptide Total Protein Albumin Urine Color Urine Appearance Urine pH Ur Specific [place] Urine Protein Urine Glucose (UA) Urine Ketones Urine Blood Urine Nitrite Urine Bilirubin Urine Urobilinogen Ur Leukocyte Esterase Urine RBC Urine WBC Ur Epithelial Cells Hyaline Casts Urine Mucus Stool Occult Blood Opiates Screen Negative Methadone Screen Negative Barbiturate Screen Negative Phencyclidine Screen Negative Ur Amphetamines Screen Negative MDMA (Ecstasy) Screen Negative Benzodiazepines Screen Negative Cocaine Screen Negative U Marijuana (THC) Screen Negative 10/23/16 10/23/16 10/23/16 06:05 06:05 06:05 WBC 2.2 L RBC 2.39 L D Hgb 7.7 L D Hct 22.7 L MCV 95.0 MCHC 33.9 RDW 20.1 H Plt Count 140 D MPV 7.4 L Neutrophils % 82.8 Lymphocytes % 9.1 D Monocytes % 8.0 Eosinophils % 0.0 D Basophils % 0.1 Retic Count INR 2.66 H PTT (Actin FS) 40.7 H Puncture Site ABG pH ABG pCO2 at Pt Temp ABG pO2 at Pt Temp ABG HCO3 ABG O2 Sat (Measured) ABG O2 Content ABG Base Excess [place] Test O2 Delivery Device Oxygen Flow Rate Vent Mode Vent Rate Mechanical Rate PEEP Pressure Support Vent Sodium Potassium Chloride Carbon Dioxide Anion Gap BUN Creatinine Creat Clearance w eGFR POC Glucometer Random Glucose Lactic Acid Calcium Phosphorus 4.3 Magnesium 2.3 Total Bilirubin Direct Bilirubin AST ALT Alkaline Phosphatase LD Total Creatine Kinase 35 L Troponin I 0.13 H D B-Natriuretic Peptide 4790.59 H Total Protein Albumin Urine Color Urine Appearance Urine pH Ur Specific [place] Urine Protein Urine Glucose (UA) Urine Ketones Urine Blood Urine Nitrite Urine Bilirubin Urine Urobilinogen Ur Leukocyte Esterase Urine RBC Urine WBC Ur Epithelial Cells Hyaline Casts Urine Mucus Stool Occult Blood Opiates Screen Methadone Screen Barbiturate Screen Phencyclidine Screen Ur Amphetamines Screen MDMA (Ecstasy) Screen Benzodiazepines Screen Cocaine Screen U Marijuana (THC) Screen 10/23/16 10/23/16 10/23/16 06:05 06:05 06:05 WBC RBC Hgb Hct MCV MCHC RDW Plt Count MPV Neutrophils % Lymphocytes % Monocytes % Eosinophils % Basophils % Retic Count 3.37 H D INR PTT (Actin FS) Puncture Site ABG pH ABG pCO2 at Pt Temp ABG pO2 at Pt Temp ABG HCO3 ABG O2 Sat (Measured) ABG O2 Content ABG Base Excess [place] Test O2 Delivery Device Oxygen Flow Rate Vent Mode Vent Rate Mechanical Rate PEEP Pressure Support Vent Sodium 140 Potassium 4.1 Chloride 100 Carbon Dioxide 31 Anion Gap 9 BUN 62 H Creatinine 2.1 H Creat Clearance w eGFR POC Glucometer Random Glucose 141 H Lactic Acid 0.910 Calcium 7.8 L Phosphorus Magnesium Total Bilirubin 2.0 H D Direct Bilirubin 1.3 H AST 38 H ALT 33 Alkaline Phosphatase 70 LD Total 157 Creatine Kinase Troponin I B-Natriuretic Peptide Total Protein 7.0 Albumin 2.6 L Urine Color Urine Appearance Urine pH Ur Specific [place] Urine Protein Urine Glucose (UA) Urine Ketones Urine Blood Urine Nitrite Urine Bilirubin Urine Urobilinogen Ur Leukocyte Esterase Urine RBC Urine WBC Ur Epithelial Cells Hyaline Casts Urine Mucus Stool Occult Blood Opiates Screen Methadone Screen Barbiturate Screen Phencyclidine Screen Ur Amphetamines Screen MDMA (Ecstasy) Screen Benzodiazepines Screen Cocaine Screen U Marijuana (THC) Screen 10/23/16 10/23/16 06:34 07:30 WBC RBC Hgb Hct MCV MCHC RDW Plt Count MPV Neutrophils % Lymphocytes % Monocytes % Eosinophils % Basophils % Retic Count INR PTT (Actin FS) Puncture Site Right radial ABG pH 7.43 ABG pCO2 at Pt Temp 41.9 ABG pO2 at Pt Temp 137.0 H D ABG HCO3 27.6 H ABG O2 Sat (Measured) 99.3 H ABG O2 Content 13.0 L ABG Base Excess 3.5 H [place] Test Positive O2 Delivery Device Mech vent Oxygen Flow Rate 40% Vent Mode Ac Vent Rate 14 Mechanical Rate Y PEEP 5.0 Pressure Support Vent 550 Sodium Potassium Chloride Carbon Dioxide Anion Gap BUN Creatinine Creat Clearance w eGFR POC Glucometer 202.99649 Random Glucose Lactic Acid Calcium Phosphorus Magnesium Total Bilirubin Direct Bilirubin AST ALT Alkaline Phosphatase LD Total Creatine Kinase Troponin I B-Natriuretic Peptide Total Protein Albumin Urine Color Urine Appearance Urine pH Ur Specific [place] Urine Protein Urine Glucose (UA) Urine Ketones Urine Blood Urine Nitrite Urine Bilirubin Urine Urobilinogen Ur Leukocyte Esterase Urine RBC Urine WBC Ur Epithelial Cells Hyaline Casts Urine Mucus Stool Occult Blood Opiates Screen Methadone Screen Barbiturate Screen Phencyclidine Screen Ur Amphetamines Screen MDMA (Ecstasy) Screen Benzodiazepines Screen Cocaine Screen U Marijuana (THC) Screen Active Medications Generic Name Dose Route Start Last Admin Trade Name Freq PRN Reason Stop Dose Admin Albuterol Sulfate 1 amp 10/22/16 12:51 Ventolin 0.083% Nebulizer Soln - NEB Q4H PRN SHORT OF BREATH/WHEEZING Albuterol/Ipratropium 1 amp 10/22/16 13:00 10/23/16 06:32 Duoneb - NEB 1 amp QIDR [facility] Administration Chlorhexidine Gluconate 1 applic 10/22/16 22:00 10/22/16 22:17 Hibiclens For Decolonization - TP 1 applic HS [facility] Administration Propofol 100 mls @ 3.81 mls/hr 10/22/16 11:10 10/22/16 11:10 Diprivan - IVPB 10/23/16 13:24 3.81 mls/hr TITR ONE Administration Protocol 5 MCG/KG/MIN Ampicillin Sodium/Sulbactam Sodium 100 mls @ 200 mls/hr 10/22/16 18:00 09:13 Unasyn 1.5 Gm (Pre-Docked) IVPB 200 mls/hr Q8H-IV [facility] Administration Pantoprazole Sodium 100 mls @ 200 mls/hr 10/22/16 22:00 10/23/16 09:14 Protonix 40mg Ivpb (Pre-Docked) IVPB 200 mls/hr BID [facility] Administration Propofol 100 mls @ 1.29 mls/hr 10/22/16 16:30 10/23/16 07:12 Diprivan - IVPB 35 mcg/kg/min TITR [facility] Titration Protocol 5 MCG/KG/MIN Methylprednisolone Sodium Succinate 80 mg 10/23/16 10:00 10/23/16 09:30 Solu-Medrol - IVPB 80 mg DAILY [facility] Administration Mupirocin 1 applic 10/22/16 22:00 10/23/16 09:14 Bactroban Ointment (For Decolonization) - NS 10/27/16 21:59 1 applic BID [facility] Administration Nystatin 1 applic 10/23/16 10:00 10/23/16 09:13 Nystop Powder - TP 1 applic DAILY [facility] Administration ASSESSMENT/PLAN: 1. Airway -monitor for respiratory failure -oxygen saturations -currently on 50% venti mask -change in AMS, consider reintubation -avoid sedation currently -appreciate Dr. Bolton note/ICU rounds 2. neutropenic -appreciate Dr. Corbin note -monitor CBC and coags -appreciate client services manager note. 3. continue in ICU today Problem List - Problems (1) COPD (chronic obstructive pulmonary disease) Code(s): J44.9 - CHRONIC OBSTRUCTIVE PULMONARY DISEASE, UNSPECIFIED Qualifiers : COPD type: unspecified COPD Qualified Code(s): J44.9 - Chronic obstructive pulmonary disease, unspecified Visit type - Emergency Visit Emergency Visit: No - New Patient This patient is new to me today: No - Critical Care Critical Care patient: Yes Total Critical Care Time (in minutes): 35 Critical Care Statement: The care of this patient involved high complexity decision making to prevent further life threatening deterioration of the patient 's condition and/or to evalute & treat vital organ system(s) failure or risk of failure. - Discharge Referral Referred to [facility] Med P.C.: No
--- NOTE | 2016-10-23 13:58 | PN ---
GI Progress Note Subjective: Extubated No overt bleeding - Objective Vital Signs: Vital Signs Temperature 99.6 F 10/23/16 12:00 Pulse Rate 99 H 10/23/16 12:25 Respiratory Rate 26 H 10/23/16 12:00 Blood Pressure 128/61 10/23/16 12:00 O2 Sat by Pulse Oximetry (%) 100 10/23/16 12:25 Constitutional: Calm Cardiovascular: Yes: Tachycardia, Pulse Irregular Respiratory: Yes: Rhonchi (bases b/l) ...Auscultate: Yes: Normoactive Bowel Sounds ...Palpate: Yes: Tenderness. No: Hepatomegaly, Splenomegaly Labs: CBC, BMP 10/23/16 06:05 10/23/16 06:05 INR, PTT INR 2.66 (0.82-1.09) H 10/23/16 06:05 - ....Imaging Ultrasound: Report Reviewed (hepatosplenomegaly on US) Problem List - Problems (1) Anemia Assessment/Plan: Pancytopenia: being evaluated by heme No overt bleeding reported Code(s): D64.9 - ANEMIA, UNSPECIFIED Qualifiers: Anemia type: iron deficiency (2) Abnormal liver function tests Assessment/Plan: With hepatosplenomegaly (fatty liver) ? if relfecting changes from passive congestion Ordered hepatitis serologies, iron studies Code(s): R79.89 - OTHER SPECIFIED ABNORMAL FINDINGS OF BLOOD CHEMISTRY
[2016-10-23] MEDS ORDERED: methylPREDNISolone NA SUCC 40 MG/1 ML VIAL IVPB ONE (14:15)
--- NOTE | 2016-10-23 18:35 | EKG ---
Test Reason : Blood Pressure : / mmHG Vent. Rate : 098 BPM Atrial Rate : 098 BPM P-R Int : 000 ms QRS Dur : 174 ms QT Int : 348 ms P-R-T Axes : 000 059 -88 degrees QTc Int : 444 ms ATRIAL FIBRILLATION RIGHT BUNDLE BRANCH BLOCK T WAVE ABNORMALITY, CONSIDER LATERAL ISCHEMIA ABNORMAL ECG WHEN COMPARED WITH ECG OF 18-OCT-2016 11:20, ATRIAL FIBRILLATION HAS REPLACED SINUS RHYTHM CLINICAL CORRELATION IS RECOMMENDED Confirmed by GATO ZHOU MD ([id number]) on 10/23/2016 6:34:51 PM Referred By: Confirmed By:GATO ZHOU MD
[2016-10-23] MEDS: CHLORHEXIDINE GLUCONATE 4% CLEANSER FOR DECOLONIZATION TP SCH (21:27)
[2016-10-24] MEDS: AMPICILLIN NA/SULBACTAM NA 100 ML IVPB SCH (01:32)
[2016-10-24 06:22] LABS: BASOPHIL 0.1 % (0-2.0); EOSINOPHIL 0.1 % (0-4.5); MCH 32.4 pg (25.7-33.7); MCHC 33.4 g/dl (32.0-35.9); MEAN CELL VOLUME 97.1 fl (80-96); MEAN PLT VOLUME 7.1 fl (7.5-11.1); NEUTROPHILS 82.6 % (42.8-82.8); PLATELET COUNT 125 K/MM3 (134-434); RDW 20.7 % (11.9-15.9); WHITE BLOOD COUNT 2.3 K/mm3 (4.0-10.0)
[2016-10-24 06:45] LABS: ALBUMIN 2.8 g/dl (3.4-5.0); CALCIUM 8.4 mg/dL (8.5-10.1); MAGNESIUM 2.7 mg/dL (1.8-2.4); PHOSPHOROUS 3.4 mg/dL (2.5-4.9)
[2016-10-24 06:48] LABS: BILIRUBIN,TOTAL 1.7 mg/dL (0.2-1.0); COCKROFT - GAULT 43.61; CREATININE 1.6 mg/dL (0.7-1.3); TOT PROT 7.4 g/dl (6.4-8.2)
[2016-10-24] MEDS: ALBUTEROL SO4 2.5/IPRATROPIUM 0.5 INH SOL 3 ML VIAL.NEB. NEB SCH ×3 (06:56→19:22)
--- NOTE | 2016-10-24 07:46 | PN ---
Progress Note (short form) - Note Progress Note: Chief Complaint: Events noted, notes reviewed, extubated, resting in bed, denies any chest pain but reports dyspnea, hemodynamically stable, remains in atrial fibrillation, rate controlled History of Present Illness: Seen and examined in the ICU. Events noted, notes reviewed, extubated, resting in bed, denies any chest pain but reports dyspnea, hemodynamically stable, remains in atrial fibrillation, rate controlled As outlined in yesterday's note operative report from [facility] [place] revealed ASD repair, Cry-Maze and ligation of LA appendage so patient will not be eligible for NATE closure device (Watchman procedure) - Current Medication List Current Medications Albuterol Sulfate (Ventolin 0.083% Nebulizer Soln -) 1 amp NEB Q4H PRN PRN Reason: SHORT OF BREATH/WHEEZING Albuterol/Ipratropium (Duoneb -) 1 amp NEB QIDR [facility] Last Admin: 10/24/16 06:56 Dose: 1 amp Chlorhexidine Gluconate (Hibiclens For Decolonization -) 1 applic TP HS [facility] Last Admin: 10/23/16 21:27 Dose: 1 applic Ampicillin Sodium/Sulbactam Sodium (Unasyn 1.5 Gm (Pre-Docked)) 100 mls @ 200 mls/hr IVPB Q8H-IV [facility] Last Admin: 10/24/16 01:32 Dose: 200 mls/hr Pantoprazole Sodium (Protonix 40mg Ivpb (Pre-Docked)) 100 mls @ 200 mls/hr IVPB BID [facility] Last Admin: 10/23/16 21:27 Dose: 200 mls/hr Propofol (Diprivan -) 100 mls @ 1.29 mls/hr IVPB TITR [facility]; 5 MCG/KG/MIN PRN Reason: Protocol Last Titration: 10/23/16 07:12 Dose: 35 mcg/kg/min Methylprednisolone Sodium Succinate (Solu-Medrol -) 80 mg IVPB DAILY [facility] Last Admin: 10/23/16 09:30 Dose: 80 mg Mupirocin (Bactroban Ointment (For Decolonization) -) 1 applic NS BID [facility] Stop: 10/27/16 21:59 Last Admin: 10/23/16 21:27 Dose: 1 applic Nystatin (Nystop Powder -) 1 applic TP DAILY [facility] Last Admin: 10/23/16 09:13 Dose: 1 applic Review of Systems Constitutional: denies Chills or Fever Respiratory: reports: Dyspnea Cardiovascular: As noted above Gastrointestinal: denies Nausea, Vomiting, Diarrhea or Constipation or Abdominal Discomfort Genitourinary: No Symptoms Reported Musculoskeletal: No Symptoms Reported - Objective Vital Signs: Last Vital Signs Temp Pulse Resp BP Pulse Ox 98.4 F 98 H 16 126/62 98 10/24/16 07:39 10/24/16 07:39 10/24/16 07:39 10/24/16 07:39 10/24/16 07:34 Intake & Output 10/21/16 10/22/16 10/23/16 10/24/16 23:59 23:59 23:59 23:59 Intake Total 1752 1090 Output Total 600 1000 Balance 1152 90 Weight 209 lb 205 lb 8 oz Neck: Supple Negative JVD No Bruit Cardiovascular: S1 S2 Regular Rate Rhythm grade 2/6 SM Respiratory: Diminished Breath Sound at the Bases Gastrointestinal: Soft Benign Normal Bowel Sounds Ext: No Edema Labs: CBC, BMP 10/24/16 05:25 10/24/16 05:25 Hepatic Panel Total Bilirubin 1.7 mg/dL (0.2-1.0) H 10/24/16 05:25 Direct Bilirubin 1.3 mg/dL (0.0-0.2) H 10/23/16 06:05 AST 27 U/L (15-37) D 10/24/16 05:25 ALT 33 U/L (12-78) 10/24/16 05:25 Alkaline Phosphatase 65 U/L (45-117) 10/24/16 05:25 Albumin 2.8 g/dl (3.4-5.0) L 10/24/16 05:25 Assessment/Plan ASSESSMENT: 1. Acute hypercapneic respiratory failure etiology probably multi-factorial acute exacerbation of COPD, underlying anemia, post extubation 2. Diastolic LV dysfunction with chronic class II NYHA association LV failure, compensated 3. 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 Persistent atrial fibrillation post Cryo-Maze, [id number] score of 5, currently off of A/C 5. 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 Wade cytopenia, post transfusion, possible hemolysis vs bone marrow suppression 7. HTN 8. Hypercholesterolemia 9. ASD post surgical repair 10stroke risk . CKD PLAN: 1. Transfuse to maintain Hg equal or > 8.0 2. Recommend withholding Coumadin therapy at this point indefinitely recognizing elevated stroke risk ([id number] score of 5) considering the above noted presentation 3. Antibiotics as per the primary team 4. Continue to hold Lasix 5. Resume B-Blockers Lopressor, hemodynamics permitting 6. Continue to hold Cozaar pending renal function stabilization, and hemodynamic permitting Nova Jara MD
[2016-10-24] MEDS ORDERED: PT OWN MED DRAWER 7, Y5N ONE (07:55)
--- NOTE | 2016-10-24 08:21 | PN ---
Progress Note, Physician Chief Complaint: ID Alert Extubated Oriented Unasyn day [address] Corbin - Current Medication List Current Medications: Active Medications Albuterol Sulfate (Ventolin 0.083% Nebulizer Soln -) 1 amp NEB Q4H PRN PRN Reason: SHORT OF BREATH/WHEEZING Albuterol/Ipratropium (Duoneb -) 1 amp NEB QIDR [facility] Last Admin: 10/24/16 06:56 Dose: 1 amp Chlorhexidine Gluconate (Hibiclens For Decolonization -) 1 applic TP HS [facility] Last Admin: 10/23/16 21:27 Dose: 1 applic Ampicillin Sodium/Sulbactam Sodium (Unasyn 1.5 Gm (Pre-Docked)) 100 mls @ 200 mls/hr IVPB Q8H-IV [facility] Last Admin: 10/24/16 01:32 Dose: 200 mls/hr Pantoprazole Sodium (Protonix 40mg Ivpb (Pre-Docked)) 100 mls @ 200 mls/hr IVPB BID [facility] Last Admin: 10/23/16 21:27 Dose: 200 mls/hr Methylprednisolone Sodium Succinate (Solu-Medrol -) 80 mg IVPB DAILY [facility] Last Admin: 10/23/16 09:30 Dose: 80 mg Metoprolol Tartrate (Lopressor -) 25 mg PO BID [facility] Mupirocin (Bactroban Ointment (For Decolonization) -) 1 applic NS BID [facility] Stop: 10/27/16 21:59 Last Admin: 10/23/16 21:27 Dose: 1 applic Nystatin (Nystop Powder -) 1 applic TP DAILY [facility] Last Admin: 10/23/16 09:13 Dose: 1 applic - Objective Vital Signs: Vital Signs Temperature 98.4 F 10/24/16 07:39 Pulse Rate 98 H 10/24/16 07:39 Respiratory Rate 16 10/24/16 07:39 Blood Pressure 126/62 10/24/16 07:39 O2 Sat by Pulse Oximetry (%) 98 10/24/16 07:34 Constitutional: Yes: Well Nourished, No Distress Neck: Yes: WNL, Supple Cardiovascular: Yes: Regular Rate and Rhythm, S1, S2 Respiratory: Yes: WNL, Regular, CTA Bilaterally. No: Rhonchi Gastrointestinal: Yes: Soft. No: Tenderness, Tenderness, Rebound Edema: No Labs: CBC, BMP 04/16/17 05:25 10/24/16 05:25 INR, PTT INR 2.66 (0.82-1.09) H 10/23/16 06:05 Problem List - Problems (1) Aspiration into respiratory tract Code(s): T17.908A - UNSP FB IN RESP TRACT, PART UNSP CAUSING OTH INJURY, INIT Qualifiers: Encounter type: initial encounter Qualified Code(s): T17.908A - Unspecified foreign body in respiratory tract, part unspecified causing other injury, initial encounter (2) COPD (chronic obstructive pulmonary disease) Code(s): J44.9 - CHRONIC OBSTRUCTIVE PULMONARY DISEASE, UNSPECIFIED Qualifiers : COPD type: unspecified COPD Qualified Code(s): J44.9 - Chronic obstructive pulmonary disease, unspecified (3) Anemia Code(s): D64.9 - ANEMIA, UNSPECIFIED Qualifiers: Anemia type: iron deficiency Assessment/Plan Microbiology 10/22/16 15:30 Nasopharyngeal Swab Influenza Types A,B Antigen (LEA) - Final 10/22/16 15:30 Nasopharyngeal Swab - Final 10/22/16 10:46 Urine - Urine Clean Catch Urine Culture - Final NO GROWTH OBTAINED 10/22/16 13:47 Blood - Peripheral Venous Blood Culture - Preliminary NO GROWTH OBTAINED AFTER 24 HOURS, INCUBATION TO CONTINUE FOR 4 DAYS. 10/22/16 13:40 Blood - Peripheral Venous Blood Culture - Preliminary NO GROWTH OBTAINED AFTER 24 HOURS, INCUBATION TO CONTINUE FOR 4 DAYS. 10/22/16 10:30 Blood - Peripheral Venous Blood Culture - Preliminary NO GROWTH OBTAINED AFTER 24 HOURS, INCUBATION TO CONTINUE FOR 4 DAYS. 10/22/16 10:30 Blood - Peripheral Venous Blood Culture - Preliminary NO GROWTH OBTAINED AFTER 24 HOURS, INCUBATION TO CONTINUE FOR 4 DAYS. Laboratory Tests 10/22/16 10/22/16 10/23/16 10:30 13:40 06:05 WBC Hgb Hct Plt Count Neutrophils % Lymphocytes % Monocytes % Eosinophils % Basophils % BUN Lactic Acid 4.837 H* 1.647 0.910 10/24/16 10/24/16 05:25 05:25 WBC 2.3 L Hgb 8.3 L Hct 24.8 L Plt Count 125 L Neutrophils % 82.6 Lymphocytes % 6.0 L D Monocytes % 11.2 H Eosinophils % 0.1 D Basophils % 0.1 BUN 46 H D Lactic Acid Assessment At this point I do not think he needs antibiotics No fever respiratory status stable Cultures negative Pancytopenia COPD ? Hemolytic anemia warm cold Ab Plan Will stop his antibiotic and observe Wilmar DANIELS
[2016-10-24] MEDS: NYSTATIN POWDER 100,000 UNITS/GM - 15 GM TOPICAL POWDER TP SCH (09:26)
[2016-10-24] MEDS: METOPROLOL TARTRATE 25 MG TABLET (FP) PO SCH ×2 (09:26→21:50)
[2016-10-24] MEDS: PANTOPRAZOLE SODIUM 100 ML IVPB SCH ×2 (09:26→21:51)
[2016-10-24] MEDS: methylPREDNISolone NA SUCC 125 MG/2 ML VIAL IVPB SCH (09:27)
[2016-10-24 09:49] LABS: ANISOCYTOSIS 2+; HYPOCHROMIA 2+; MICROCYTOSIS 1+; PLATELET COMMENT2 NO CLOTTING DETECTED; PLATELET ESTIMATE SLT DECREASED (NORMAL); POIKILOCYTOSIS 1+; POLYCHROMASIA 1+
--- NOTE | 2016-10-24 10:05 | PN ---
Progress Note (short form) - Note Progress Note: PULMONARY/CCM Pt seen and examined in the ICU. Extubated yesterday without incident. Tolerated PO this AM. Still some shortness of breath. +dysphonia. Last Vital Signs Temp Pulse Resp BP Pulse Ox 98.6 F 102 H 20 133/50 100 10/24/16 09:35 10/24/16 09:53 10/24/16 09:35 10/24/16 09:35 10/24/16 09:53 Intake & Output 10/21/16 10/22/16 10/23/16 10/24/16 23:59 23:59 23:59 23:59 Intake Total 1752 1090 Output Total 600 1000 Balance 1152 90 Weight 209 lb 205 lb 8 oz Gen: intubated, sedated Heart: RRR Lung: scattered rhonchi Abd: soft, nontender Ext: trace edema CBC, BMP 10/24/16 05:25 10/24/16 05:25 Active Medications Albuterol Sulfate (Ventolin 0.083% Nebulizer Soln -) 1 amp NEB Q4H PRN PRN Reason: SHORT OF BREATH/WHEEZING Albuterol/Ipratropium (Duoneb -) 1 amp NEB QIDR [facility] Last Admin: 10/24/16 06:56 Dose: 1 amp Chlorhexidine Gluconate (Hibiclens For Decolonization -) 1 applic TP HS [facility] Last Admin: 10/23/16 21:27 Dose: 1 applic Pantoprazole Sodium (Protonix 40mg Ivpb (Pre-Docked)) 100 mls @ 200 mls/hr IVPB BID [facility] Last Admin: 10/24/16 09:26 Dose: 200 mls/hr Methylprednisolone Sodium Succinate (Solu-Medrol -) 80 mg IVPB DAILY [facility] Last Admin: 10/24/16 09:27 Dose: 80 mg Metoprolol Tartrate (Lopressor -) 25 mg PO BID [facility] Last Admin: 10/24/16 09:26 Dose: 25 mg Mupirocin (Bactroban Ointment (For Decolonization) -) 1 applic NS BID [facility] Stop: 10/27/16 21:59 Last Admin: 10/23/16 21:27 Dose: 1 applic Nystatin (Nystop Powder -) 1 applic TP DAILY [facility] Last Admin: 10/24/16 09:26 Dose: 1 applic A/P Acute Hypercapneic Respiratory Failure Acute COPD Exacerbation LV Diastolic Dysfunction Pulmonary HTN CAD Atrial Fibrillation Pancytopenia HTN CKD ASD s/p repair - agree with monitoring off antibiotics - empiric medrol - inhaled bronchodilators - monitor CBC - transfuse as needed - flow cytometry - may need BMBx - PO as tolerated - DVT/GI prophylaxis - ICU monitoring critical care time spent in reviewing chart, evaluating patient and formulating plan 35 min
[2016-10-24] MEDS: MUPIROCIN 2% TOPICAL OINTMENT FOR DECOLONIZATION NS SCH ×2 (10:40→21:55)
--- NOTE | 2016-10-24 13:34 | PN ---
Progress Note (short form) - Note Progress Note: Progress Note (short form) - Note Progress Note: Patient seen and examined Extubated. Sitting in a chair and answering qquestions\ wants to call his family HEENT: TAM, EOM Intact Oropharynx: No thrush, No mucositis Neck: Supple Lungs:rhonchi, wheezes, diminished breath sounds Abd: Soft, Normal bowel sounds, No organomegaly, umbilical hernia, distended Ext:No significant edema skin- numerous ecchymoses Skin: No rashes, Integument intact CBC, BMP 10/24/16 05:25 10/24/16 05:25 INR, PTT INR 2.66 (0.82-1.09) H 10/23/16 06:05 Active Medications Generic Name Dose Route Start Last Admin Trade Name Freq PRN Reason Stop Dose Admin Albuterol Sulfate 1 amp 10/22/16 12:51 Ventolin 0.083% Nebulizer Soln - NEB Q4H PRN SHORT OF BREATH/WHEEZING Albuterol/Ipratropium 1 amp 10/22/16 13:00 10/24/16 12:09 Duoneb - NEB 1 amp QIDR [facility] Administration Chlorhexidine Gluconate 1 applic 10/22/16 22:00 10/23/16 21:27 Hibiclens For Decolonization - TP 1 applic HS [facility] Administration Pantoprazole Sodium 100 mls @ 200 mls/hr 10/22/16 22:00 10/24/16 09:26 Protonix 40mg Ivpb (Pre-Docked) IVPB 200 mls/hr BID [facility] Administration Methylprednisolone Sodium Succinate 80 mg 10/23/16 10:00 10/24/16 09:27 Solu-Medrol - IVPB 80 mg DAILY [facility] Administration Metoprolol Tartrate 25 mg 10/24/16 10:00 10/24/16 09:26 Lopressor - PO 25 mg BID [facility] Administration Mupirocin 1 applic 10/22/16 22:00 10/24/16 10:40 Bactroban Ointment (For Decolonization) - NS 10/27/16 21:59 1 applic BID [facility] Administration Nystatin 1 applic 10/23/16 10:00 10/24/16 09:26 Nystop Powder - TP 1 applic DAILY [facility] Administration Impression : S/P extubation for hypercapnia COPD ASHD/CHF Atrial fib CKD Anemia- component of blood loss, but no obvious melena. Laboratory with previously high haptoglobin, normal LDH, low retic, predominantly direct bilirubin -all against hemolysis, although patient is Carmen positive with a warm and cold antibody. Neutropenia -has developed over last few months. Does raise issue of underlying MDS . Plan:: Maintain INR in therapeutic range Would reverse prn bleeding Hold off blood transfusions. Hb is stable over two days Would transfuse in warm water bath prn further fall in Hb/Hct. Flow cytometry for MDS on Tuesday. Follow CBC.
[2016-10-24] MEDS: CHLORHEXIDINE GLUCONATE 4% CLEANSER FOR DECOLONIZATION TP SCH (21:55)
--- NOTE | 2016-10-24 23:48 | PN ---
Physical Exam: SUBJECTIVE: Patient seen and examined oob to chair. Voices no complaints. OBJECTIVE: Vital Signs Period Temp Pulse Resp BP Sys/Brian Pulse Ox Last 24 Hr 98 F-98.9 F 81-112 12-22 119-146/50-82 98-100 GENERAL: The patient is awake, alert, and fully oriented, in no acute distress. LUNGS: Mild expiratory wheezing HEART: Irregular S1, S2 without murmur, rub or gallop. ABDOMEN: Soft, nontender, nondistended, normoactive bowel sounds, no guarding, no rebound EXTREMITIES: 2+ pulses, warm, well-perfused, no edema. NEUROLOGICAL: Cranial nerves II through XII grossly intact. Normal speech, gait not observed. Laboratory Results - last 24 hr 10/23/16 10/24/16 10/24/16 06:05 05:25 05:25 WBC 2.3 L RBC 2.55 L Hgb 8.3 L Hct 24.8 L MCV 97.1 H MCHC 33.4 RDW 20.7 H Plt Count 125 L MPV 7.1 L Neutrophils % 82.6 Lymphocytes % 6.0 L D Monocytes % 11.2 H Eosinophils % 0.1 D Basophils % 0.1 Differential Comment Slide scanned Platelet Estimate Slt decreased Platelet Comment No clotting detected Polychromasia 1+ Hypochromic-Microcytic 2+ Poikilocytosis 1+ Anisocytosis 2+ Microcytosis 1+ Macrocytosis 2+ Haptoglobin 69 Sodium 144 Potassium 3.8 Chloride 104 Carbon Dioxide 33 H Anion Gap 7 L BUN 46 H D Creatinine 1.6 H D Creat Clearance w eGFR 41.09 POC Glucometer Random Glucose 150 H Calcium 8.4 L Phosphorus 3.4 D Magnesium 2.7 H Ferritin Total Bilirubin 1.7 H AST 27 D ALT 33 Alkaline Phosphatase 65 Total Protein 7.4 Albumin 2.8 L 10/24/16 10/24/16 10/24/16 05:25 05:56 10:50 WBC RBC Hgb Hct MCV MCHC RDW Plt Count MPV Neutrophils % Lymphocytes % Monocytes % Eosinophils % Basophils % Differential Comment Platelet Estimate Platelet Comment Polychromasia Hypochromic-Microcytic Poikilocytosis Anisocytosis Microcytosis Macrocytosis Haptoglobin Sodium Potassium Chloride Carbon Dioxide Anion Gap BUN Creatinine Creat Clearance w eGFR POC Glucometer 180.34326 [phone] Random Glucose Calcium Phosphorus Magnesium Ferritin 106.990 Total Bilirubin AST ALT Alkaline Phosphatase Total Protein Albumin 10/24/16 17:09 WBC RBC Hgb Hct MCV MCHC RDW Plt Count MPV Neutrophils % Lymphocytes % Monocytes % Eosinophils % Basophils % Differential Comment Platelet Estimate Platelet Comment Polychromasia Hypochromic-Microcytic Poikilocytosis Anisocytosis Microcytosis Macrocytosis Haptoglobin Sodium Potassium Chloride Carbon Dioxide Anion Gap BUN Creatinine Creat Clearance w eGFR POC Glucometer [phone] Random Glucose Calcium Phosphorus Magnesium Ferritin Total Bilirubin AST ALT Alkaline Phosphatase Total Protein Albumin Active Medications Generic Name Dose Route Start Last Admin Trade Name Freq PRN Reason Stop Dose Admin Albuterol Sulfate 1 amp 10/22/16 12:51 Ventolin 0.083% Nebulizer Soln - NEB Q4H PRN SHORT OF BREATH/WHEEZING Albuterol/Ipratropium 1 amp 10/22/16 13:00 10/24/16 19:22 Duoneb - NEB 1 amp QIDR [facility] Administration Chlorhexidine Gluconate 1 applic 10/22/16 22:00 10/24/16 21:55 Hibiclens For Decolonization - TP 1 applic HS [facility] Administration Pantoprazole Sodium 100 mls @ 200 mls/hr 10/22/16 22:00 10/24/16 21:51 Protonix 40mg Ivpb (Pre-Docked) IVPB 200 mls/hr BID [facility] Administration Methylprednisolone Sodium Succinate 80 mg 10/23/16 10:00 10/24/16 09:27 Solu-Medrol - IVPB 80 mg DAILY [facility] Administration Metoprolol Tartrate 25 mg 10/24/16 10:00 10/24/16 21:50 Lopressor - PO 25 mg BID [facility] Administration Mupirocin 1 applic 10/22/16 22:00 10/24/16 21:55 Bactroban Ointment (For Decolonization) - NS 10/27/16 21:59 1 applic BID [facility] Administration Nystatin 1 applic 10/23/16 10:00 10/24/16 09:26 Nystop Powder - TP 1 applic DAILY [facility] Administration ASSESSMENT/PLAN: 86 year-old male with a PMH of asthma, anemia, CHF, AFib (on coumadin), CAD, ASD , COPD, pulmonary hypertension, LV dysfunction, hypertension, hyperlipidemia, and GI bleeding. Admitted in respiratory failure. Acute hypercapneic respiratory failure, improved COPD --on NC --continue steroids Diastolic heart failure, compensated --holding diuretics CAD, stable Atrial fibrillation --currently off a/c Pancytopenia --possible hemolysis v. bone marrow suppression --no transfusions for now per Dr. Corbin Hypertension Full Code Visit type - Emergency Visit Emergency Visit: Yes ED Registration Date: 10/22/16 Care time: The patient presented to the Emergency Department on the above date and was hospitalized for further evaluation of their emergent condition. - New Patient This patient is new to me today: Yes Date on this admission: 10/25/16 - Critical Care Critical Care patient: Yes Total Critical Care Time (in minutes): 35 Critical Care Statement: The care of this patient involved high complexity decision making to prevent further life threatening deterioration of the patient 's condition and/or to evalute & treat vital organ system(s) failure or risk of failure.
[2016-10-25] MEDS: ALBUTEROL SO4 2.5/IPRATROPIUM 0.5 INH SOL 3 ML VIAL.NEB. NEB SCH ×5 (01:08→23:37)
[2016-10-25 06:06] LABS: SERUM IRON 81 ug/dL (38-169); TOTAL IRON BINDING CAPACITY 292 ug/dL (250-450); UIBC 211 ug/dL (111-343)
[2016-10-25 06:11] LABS: BASOPHIL 0.4 % (0-2.0); EOSINOPHIL 1.2 % (0-4.5); MCH 32.7 pg (25.7-33.7); MCHC 33.1 g/dl (32.0-35.9); MEAN CELL VOLUME 98.8 fl (80-96); MEAN PLT VOLUME 7.4 fl (7.5-11.1); PLATELET COUNT 127 K/MM3 (134-434); RDW 21.3 % (11.9-15.9); WHITE BLOOD COUNT 2.7 K/mm3 (4.0-10.0)
[2016-10-25 06:48] LABS: CALCIUM 8.2 mg/dL (8.5-10.1); COCKROFT - GAULT 53.95; CREATININE 1.3 mg/dL (0.7-1.3)
--- NOTE | 2016-10-25 07:02 | PN ---
Progress Note (short form) - Note Progress Note: Chief Complaint: Events noted, notes reviewed, remains extubated, sitting in a chair, denies any chest pain but reports dyspnea, hemodynamically stable, remains in atrial fibrillation, rate controlled History of Present Illness: Seen and examined in the ICU. Events noted, notes reviewed, remains extubated, sitting in a chair, denies any chest pain but reports dyspnea, hemodynamically stable, remains in atrial fibrillation, rate controlled Awaiting further hematological evaluation, as outlined A/C may need to be deferred pending resolution of current pathology, last INR from 10/23/16 noted As outlined in the prior note operative report from [facility] [place] revealed ASD repair , Cry-Maze and ligation of LA appendage so patient will not be eligible for NATE closure device (Watchman procedure) - Current Medication List Current Medications Albuterol Sulfate (Ventolin 0.083% Nebulizer Soln -) 1 amp NEB Q4H PRN PRN Reason: SHORT OF BREATH/WHEEZING Albuterol/Ipratropium (Duoneb -) 1 amp NEB QIDR [facility] Last Admin: 10/25/16 07:00 Dose: 1 amp Chlorhexidine Gluconate (Hibiclens For Decolonization -) 1 applic TP HS [facility] Last Admin: 10/24/16 21:55 Dose: 1 applic Pantoprazole Sodium (Protonix 40mg Ivpb (Pre-Docked)) 100 mls @ 200 mls/hr IVPB BID [facility] Last Admin: 10/24/16 21:51 Dose: 200 mls/hr Methylprednisolone Sodium Succinate (Solu-Medrol -) 80 mg IVPB DAILY [facility] Last Admin: 10/24/16 09:27 Dose: 80 mg Metoprolol Tartrate (Lopressor -) 25 mg PO BID [facility] Last Admin: 10/24/16 21:50 Dose: 25 mg Mupirocin (Bactroban Ointment (For Decolonization) -) 1 applic NS BID [facility] Stop: 10/27/16 21:59 Last Admin: 10/24/16 21:55 Dose: 1 applic Nystatin (Nystop Powder -) 1 applic TP DAILY [facility] Last Admin: 10/24/16 09:26 Dose: 1 applic Review of Systems Constitutional: denies Chills or Fever Respiratory: reports: Dyspnea Cardiovascular: As noted above Gastrointestinal: denies Nausea, Vomiting, Diarrhea or Constipation or Abdominal Discomfort Genitourinary: No Symptoms Reported Musculoskeletal: No Symptoms Reported - Objective Vital Signs: Last Vital Signs Temp Pulse Resp BP Pulse Ox 97.7 F 88 18 122/69 100 10/25/16 06:42 10/25/16 06:42 10/25/16 06:42 10/25/16 06:42 10/24/16 20:08 Intake & Output 10/22/16 10/23/16 10/24/16 10/25/16 23:59 23:59 23:59 23:59 Intake Total 1752 1090 1250 600 Output Total 600 1000 400 700 Balance 1152 90 850 -100 Weight 209 lb 205 lb 8 oz 210 lb 1 oz Neck: Supple Negative JVD No Bruit Cardiovascular: S1 S2 Regular Rate Rhythm grade 2/6 SM Respiratory: Diminished Breath Sound at the Bases Gastrointestinal: Soft Benign Normal Bowel Sounds Ext: No Edema Labs: CBC, BMP 10/25/16 05:15 10/25/16 05:15 INR, PTT INR 2.66 (0.82-1.09) H 10/23/16 06:05 Assessment/Plan ASSESSMENT: 1. Acute hypercapneic respiratory failure etiology probably multi-factorial acute exacerbation of COPD, underlying anemia, post extubation 2. Diastolic LV dysfunction with chronic class I-II NYHA association LV failure , compensated 3. 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 Persistent atrial fibrillation post Cryo-Maze and NATE ligation, [id number] score of 5, currently off of A/C, elevated INR 5. 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 Wade cytopenia, post transfusion, possible hemolysis vs bone marrow suppression 7. HTN 8. Hypercholesterolemia 9. ASD post surgical repair 10. CKD PLAN: 1. Transfuse to maintain Hg equal or > 8.0 2. As outlined recommend withholding Coumadin therapy at this point indefinitely recognizing elevated stroke risk ([id number] score of 5) considering the above noted presentation, pending resolution 3. Antibiotics as per the primary team 4. Continue to hold Lasix 5. Continue Lopressor, hemodynamics permitting 6. Resume Cozaar, hemodynamic permitting with close monitoring of renal function Nova Jara MD
[2016-10-25 07:07] LABS: INR 1.71 (0.82-1.09)
--- NOTE | 2016-10-25 08:09 | PN ---
Progress Note, Physician Chief Complaint: ID Off antibiotics now Remains afebrile - Current Medication List Current Medications: Active Medications Albuterol Sulfate (Ventolin 0.083% Nebulizer Soln -) 1 amp NEB Q4H PRN PRN Reason: SHORT OF BREATH/WHEEZING Albuterol/Ipratropium (Duoneb -) 1 amp NEB QIDR [facility] Last Admin: 10/25/16 07:00 Dose: 1 amp Chlorhexidine Gluconate (Hibiclens For Decolonization -) 1 applic TP HS [facility] Last Admin: 10/24/16 21:55 Dose: 1 applic Docusate Sodium (Colace -) 100 mg PO DAILY [facility] Pantoprazole Sodium (Protonix 40mg Ivpb (Pre-Docked)) 100 mls @ 200 mls/hr IVPB BID [facility] Last Admin: 10/24/16 21:51 Dose: 200 mls/hr Losartan Potassium (Cozaar -) 25 mg PO DAILY [facility] Methylprednisolone Sodium Succinate (Solu-Medrol -) 80 mg IVPB DAILY [facility] Last Admin: 10/24/16 09:27 Dose: 80 mg Metoprolol Tartrate (Lopressor -) 25 mg PO BID [facility] Last Admin: 10/24/16 21:50 Dose: 25 mg Mupirocin (Bactroban Ointment (For Decolonization) -) 1 applic NS BID [facility] Stop: 10/27/16 21:59 Last Admin: 10/24/16 21:55 Dose: 1 applic Nystatin (Nystop Powder -) 1 applic TP DAILY [facility] Last Admin: 10/24/16 09:26 Dose: 1 applic Polyethylene Glycol (Miralax (For Daily Use) -) 17 gm PO BID [facility] - Objective Vital Signs: Vital Signs Temperature 97.7 F 10/25/16 06:42 Pulse Rate 94 H 10/25/16 08:00 Respiratory Rate 20 10/25/16 08:00 Blood Pressure 125/64 10/25/16 08:00 O2 Sat by Pulse Oximetry (%) 100 10/24/16 20:08 Constitutional: Yes: Well Nourished, No Distress HENT: Yes: Other (central line) Cardiovascular: Yes: Regular Rate and Rhythm, S1, S2 Respiratory: Yes: WNL, Regular, CTA Bilaterally, Rhonchi Gastrointestinal: Yes: WNL, Normal Bowel Sounds, Soft. No: Tenderness, Tenderness, Epigastrium Edema: No Labs: CBC, BMP 10/25/16 05:15 10/25/16 05:15 INR, PTT INR 1.71 (0.82-1.09) H D 10/25/16 05:15 Problem List - Problems (1) Aspiration into respiratory tract Code(s): T17.908A - UNSP FB IN RESP TRACT, PART UNSP CAUSING OTH INJURY, INIT Qualifiers: Encounter type: initial encounter Qualified Code(s): T17.908A - Unspecified foreign body in respiratory tract, part unspecified causing other injury, initial encounter (2) COPD (chronic obstructive pulmonary disease) Code(s): J44.9 - CHRONIC OBSTRUCTIVE PULMONARY DISEASE, UNSPECIFIED Qualifiers : COPD type: unspecified COPD Qualified Code(s): J44.9 - Chronic obstructive pulmonary disease, unspecified (3) Anemia Code(s): D64.9 - ANEMIA, UNSPECIFIED Qualifiers: Anemia type: iron deficiency Assessment/Plan Microbiology 10/22/16 15:30 Nasopharyngeal Swab Influenza Types A,B Antigen (LEA) - Final 10/22/16 15:30 Nasopharyngeal Swab - Final 10/22/16 10:46 Urine - Urine Clean Catch Urine Culture - Final NO GROWTH OBTAINED 10/22/16 13:47 Blood - Peripheral Venous Blood Culture - Preliminary NO GROWTH OBTAINED AFTER 48 HOURS, INCUBATION TO CONTINUE FOR 3 DAYS. 10/22/16 13:40 Blood - Peripheral Venous Blood Culture - Preliminary NO GROWTH OBTAINED AFTER 48 HOURS, INCUBATION TO CONTINUE FOR 3 DAYS. 10/22/16 10:30 Blood - Peripheral Venous Blood Culture - Preliminary NO GROWTH OBTAINED AFTER 48 HOURS, INCUBATION TO CONTINUE FOR 3 DAYS. 10/22/16 10:30 Blood - Peripheral Venous Blood Culture - Preliminary NO GROWTH OBTAINED AFTER 48 HOURS, INCUBATION TO CONTINUE FOR 3 DAYS. Laboratory Tests 10/25/16 10/25/16 05:15 05:15 WBC 2.7 L Hgb 8.6 L Hct 26.1 L Plt Count 127 L BUN 39 H Creatinine 1.3 Assessment Post respiratory failure Pancytopenia Warm cold antibodies No evidence infection Plan Will sign off Kindly recall as needed Wilmar DANIELS
[2016-10-25] MEDS: methylPREDNISolone NA SUCC 125 MG/2 ML VIAL IVPB SCH (10:10)
[2016-10-25] MEDS: PANTOPRAZOLE SODIUM 100 ML IVPB SCH (10:10)
[2016-10-25] MEDS: DOCUSATE SODIUM 100 MG CAPSULE (FP) PO SCH (10:14)
[2016-10-25] MEDS: LOSARTAN POTASSIUM 25 MG TABLET PO SCH (10:14)
[2016-10-25] MEDS: MUPIROCIN 2% TOPICAL OINTMENT FOR DECOLONIZATION NS SCH ×2 (10:15→21:03)
[2016-10-25] MEDS: METOPROLOL TARTRATE 25 MG TABLET (FP) PO SCH ×2 (10:15→21:02)
[2016-10-25] MEDS: POLYETHYLENE GLYCOL 3350 119 GM BTL PO SCH ×2 (10:16→21:06)
[2016-10-25] MEDS: NYSTATIN POWDER 100,000 UNITS/GM - 15 GM TOPICAL POWDER TP SCH (10:17)
--- NOTE | 2016-10-25 12:04 | PN ---
GI Progress Note Subjective: GI NOte: No overt GI bleeding. Counts are stable. No GI complaints - Objective Vital Signs: Vital Signs Temperature 97.7 F 10/25/16 06:42 Pulse Rate 102 H 10/25/16 10:00 Respiratory Rate 21 10/25/16 10:00 Blood Pressure 139/65 10/25/16 10:00 O2 Sat by Pulse Oximetry (%) 100 10/25/16 08:05 Constitutional: Calm ...Auscultate: Yes: Normoactive Bowel Sounds ...Palpate: Yes: Soft, Other (nontender) Labs: CBC, BMP 10/25/16 05:15 10/25/16 05:15 INR, PTT INR 1.71 (0.82-1.09) H D 10/25/16 05:15 Assessment/Plan Pancytopenia being evaluated by Dr Corbin's team. Please recall us if evidence of GI bleeding arises.
--- NOTE | 2016-10-25 12:16 | PN ---
Progress Note (short form) - Note Progress Note: Subjective: The patient was seen and examined at the bedside, he has no complaints at this time. Current Medications Generic Name Dose Route Start Last Admin Trade Name Freq PRN Reason Stop Dose Admin Albuterol Sulfate 1 amp 10/22/16 12:51 Ventolin 0.083% Nebulizer Soln - NEB Q4H PRN SHORT OF BREATH/WHEEZING Albuterol/Ipratropium 1 amp 10/22/16 13:00 10/25/16 11:10 Duoneb - NEB 1 amp QIDR RUBIA Administration Chlorhexidine Gluconate 1 applic 10/22/16 22:00 10/24/16 21:55 Hibiclens For Decolonization - TP 1 applic HS RUBIA Administration Docusate Sodium 100 mg 10/25/16 10:00 10/25/16 10:14 Colace - PO 100 mg DAILY RUBIA Administration Furosemide 40 mg 10/26/16 10:00 Lasix - PO DAILY RUBIA Losartan Potassium 25 mg 10/25/16 10:00 10/25/16 10:14 Cozaar - PO 25 mg DAILY RUBIA Administration Methylprednisolone Sodium Succinate 80 mg 10/23/16 10:00 10/25/16 10:10 Solu-Medrol - IVPB 80 mg DAILY RUBIA Administration Metoprolol Tartrate 25 mg 10/24/16 10:00 10/25/16 10:15 Lopressor - PO 25 mg BID RUBIA Administration Mupirocin 1 applic 10/22/16 22:00 10/25/16 10:15 Bactroban Ointment (For Decolonization) - NS 10/27/16 21:59 1 applic BID RUBIA Administration Nystatin 1 applic 10/23/16 10:00 10/25/16 10:17 Nystop Powder - TP 1 applic DAILY RUBIA Administration Pantoprazole Sodium 40 mg 10/25/16 22:00 Protonix - PO BID RUBIA Polyethylene Glycol 17 gm 10/25/16 10:00 10/25/16 10:16 Miralax (For Daily Use) - PO 17 grams BID RUBIA Administration Objective: Vital Signs Period Temp Pulse Resp BP Sys/Brian Pulse Ox Last 24 Hr 97.7 F-98.9 F 81-102 12-22 119-146/59-82 100-100 Physical Exam: General: NAD, A&Ox3 Lungs: Decreased breath sounds bilaterally Heart: RRR, S1S2 Abd: Soft, non-tender, non-distended. Normoactive bowel sounds Ext: Multiple b/l upper extremity eccymosis. B/l lower extremity edema Neuro: CN 2-12 intact CBCD WBC 2.7 K/mm3 (4.0-10.0) L 10/25/16 05:15 RBC 2.64 M/mm3 (4.00-5.60) L 10/25/16 05:15 Hgb 8.6 GM/dL (11.7-16.9) L 10/25/16 05:15 Hct 26.1 % (35.4-49) L 10/25/16 05:15 MCV 98.8 fl (80-96) H 10/25/16 05:15 MCHC 33.1 g/dl (32.0-35.9) 10/25/16 05:15 RDW 21.3 % (11.9-15.9) H 10/25/16 05:15 Plt Count 127 K/MM3 (134-434) L 10/25/16 05:15 MPV 7.4 fl (7.5-11.1) L 10/25/16 05:15 CMP Sodium 140 mmol/L (136-145) 10/25/16 05:15 Potassium 4.3 mmol/L (3.5-5.1) 10/25/16 05:15 Chloride 103 mmol/L (98-107) 10/25/16 05:15 Carbon Dioxide 32 mmol/L (21-32) 10/25/16 05:15 Anion Gap 5 (8-16) L 10/25/16 05:15 BUN 39 mg/dL (7-18) H 10/25/16 05:15 Creatinine 1.3 mg/dL (0.7-1.3) 10/25/16 05:15 Creat Clearance w eGFR 41.09 (>60) 10/24/16 05:25 Random Glucose 132 mg/dL (74-106) H 10/25/16 05:15 Calcium 8.2 mg/dL (8.5-10.1) L 10/25/16 05:15 Total Bilirubin 1.7 mg/dL (0.2-1.0) H 10/24/16 05:25 AST 27 U/L (15-37) D 10/24/16 05:25 ALT 33 U/L (12-78) 10/24/16 05:25 Alkaline Phosphatase 65 U/L (45-117) 10/24/16 05:25 Total Protein 7.4 g/dl (6.4-8.2) 10/24/16 05:25 Albumin 2.8 g/dl (3.4-5.0) L 10/24/16 05:25 CARDIAC ENZYMES Creatine Kinase 35 IU/L (39-308) L 10/23/16 06:05 Troponin I 0.13 ng/ml (0.00-0.05) H D 10/23/16 06:05 Microbiology 10/22/16 15:30 Nasopharyngeal Swab Influenza Types A,B Antigen (LEA) - Final 10/22/16 15:30 Nasopharyngeal Swab - Final 10/22/16 10:30 Blood - Peripheral Venous Blood Culture - Preliminary NO GROWTH OBTAINED AFTER 72 HOURS, INCUBATION TO CONTINUE FOR 2 DAYS. 10/22/16 10:30 Blood - Peripheral Venous Blood Culture - Preliminary NO GROWTH OBTAINED AFTER 72 HOURS, INCUBATION TO CONTINUE FOR 2 DAYS. 10/22/16 13:47 Blood - Peripheral Venous Blood Culture - Preliminary NO GROWTH OBTAINED AFTER 48 HOURS, INCUBATION TO CONTINUE FOR 3 DAYS. 10/22/16 13:40 Blood - Peripheral Venous Blood Culture - Preliminary NO GROWTH OBTAINED AFTER 48 HOURS, INCUBATION TO CONTINUE FOR 3 DAYS. 10/22/16 10:46 Urine - Urine Clean Catch Urine Culture - Final NO GROWTH OBTAINED Assessment: This is an 86 year old male with PMHx of asthma, anemia, CHF, a.fib (on home Coumadin), CAD, ASD, COPD, pulmonary htn, HTN, hyperlipidemia, GI bleeding who presented to the ED in respiratory distress Plan: 1) Pulmonary: Acute hypercapnic Hypoxic Respiratory Failure - Extubated yesterday - Breathing continues to improve - Continue Solu-medrol, taper per pulmonary - Continue duonebs - Continue to monitor off abx - Appreciate pulmonary/cc consult 2) Hematology: Anemia, neutropenia - Acute blood loss, stool for occult blood positive - Hold off blood transfusions, Hgb stable - For flow cytometry for MDS today - Appreciate hematology consult 3) Cardiology: A.fib - Currently withholding Coumadin per cardiology 2/2 anemia Diastolic LV dysfunction, compensated - Continue Lasix - Continue Lopressor - Continue Cozaar ASD - S/p repair 4) F/E/N: - Sodium controlled diet - Monitor electrolytes 5) Prophylaxis: - Hold all chemical dvt prophylaxis 2/2 anemia 6) Dispo: - Requires continued inpatient care CODE STATUS: FULL CODE Visit type - Emergency Visit Emergency Visit: Yes ED Registration Date: 10/22/16 Care time: The patient presented to the Emergency Department on the above date and was hospitalized for further evaluation of their emergent condition. - New Patient This patient is new to me today: Yes Date on this admission: 10/25/16 - Critical Care Critical Care patient: No
--- NOTE | 2016-10-25 12:28 | PN ---
Teaching Attending Note Name of Resident: Ashanti Pina ATTENDING PHYSICIAN STATEMENT I saw and evaluated the patient. I reviewed the resident's note and discussed the case with the resident. I agree with the resident's findings and plan as documented. SUBJECTIVE: Pt seen and examined in the ICU. Extubated yesterday without incident. States breathing is improved. Dark stools overnight. OBJECTIVE: Last Vital Signs Temp Pulse Resp BP Pulse Ox 97.7 F 84 19 139/65 100 10/25/16 06:42 10/25/16 12:00 10/25/16 12:00 10/25/16 10:00 10/25/16 08:05 Intake & Output 10/22/16 10/23/16 10/24/16 10/25/16 23:59 23:59 23:59 23:59 Intake Total 1752 1090 1250 600 Output Total 600 1000 400 700 Balance 1152 90 850 -100 Weight 209 lb 205 lb 8 oz 210 lb 1 oz Gen: less tachypneic Heart: RRR Lung: decreased breath sounds at the bases Abd: soft, nontender Ext: + edema CBC, BMP 10/25/16 05:15 10/25/16 05:15 Active Medications Albuterol Sulfate (Ventolin 0.083% Nebulizer Soln -) 1 amp NEB Q4H PRN PRN Reason: SHORT OF BREATH/WHEEZING Albuterol/Ipratropium (Duoneb -) 1 amp NEB QIDR [facility] Last Admin: 10/25/16 11:10 Dose: 1 amp Chlorhexidine Gluconate (Hibiclens For Decolonization -) 1 applic TP HS [facility] Last Admin: 10/24/16 21:55 Dose: 1 applic Docusate Sodium (Colace -) 100 mg PO DAILY [facility] Last Admin: 10/25/16 10:14 Dose: 100 mg Furosemide (Lasix -) 40 mg PO DAILY [facility] Losartan Potassium (Cozaar -) 25 mg PO DAILY [facility] Last Admin: 10/25/16 10:14 Dose: 25 mg Methylprednisolone Sodium Succinate (Solu-Medrol -) 80 mg IVPB DAILY [facility] Last Admin: 10/25/16 10:10 Dose: 80 mg Metoprolol Tartrate (Lopressor -) 25 mg PO BID [facility] Last Admin: 10/25/16 10:15 Dose: 25 mg Mupirocin (Bactroban Ointment (For Decolonization) -) 1 applic NS BID [facility] Stop: 10/27/16 21:59 Last Admin: 10/25/16 10:15 Dose: 1 applic Nystatin (Nystop Powder -) 1 applic TP DAILY [facility] Last Admin: 10/25/16 10:17 Dose: 1 applic Pantoprazole Sodium (Protonix -) 40 mg PO BID [facility] Polyethylene Glycol (Miralax (For Daily Use) -) 17 gm PO BID [facility] Last Admin: 10/25/16 10:16 Dose: 17 grams ASSESSMENT AND PLAN: s/p Acute Hypercapneic Respiratory Failure Acute COPD Exacerbation LV Diastolic Dysfunction Pulmonary HTN CAD Atrial Fibrillation Pancytopenia HTN CKD ASD s/p repair - continue to monitor off antibiotics - empiric medrol - inhaled bronchodilators - monitor CBC - transfuse as needed - flow cytometry - may need BMBx - resume lasix - d/c cordis - PO as tolerated - DVT/GI prophylaxis - can monitor on telemetry
--- NOTE | 2016-10-25 13:27 | PN ---
Physical Exam: SUBJECTIVE: Patient seen and examined patient sitting comfartably in chair denies sob, chest pain, palpitations denies blood in stool OBJECTIVE: Vital Signs Period Temp Pulse Resp BP Sys/Brian Pulse Ox Last 24 Hr 97.7 F-98.9 F 81-102 12-22 119-146/59-82 100-100 GENERAL:awake, alert, oriented NECK: Trachea midline, full range of motion, supple. LUNGS: Breath sounds equal, clear to auscultation bilaterally, no wheezes, mild crackles , no accessory muscle use. HEART:s1s2 normal ABDOMEN: Soft, nontender, nondistended, normoactive bowel sounds, no guarding, no rebound EXTREMITIES: 2+ pulses, warm, pedal edema 1+ PSYCH: Normal mood, normal affect. SKIN: Warm, dry, Laboratory Results - last 24 hr 10/24/16 10/24/16 10/25/16 05:25 17:09 05:15 WBC 2.7 L RBC 2.64 L Hgb 8.6 L Hct 26.1 L MCV 98.8 H MCHC 33.1 RDW 21.3 H Plt Count 127 L MPV 7.4 L Neutrophils % 81.0 Lymphocytes % 5.3 L Monocytes % 12.1 H Eosinophils % 1.2 D Basophils % 0.4 D INR Sodium Potassium Chloride Carbon Dioxide Anion Gap BUN Creatinine POC Glucometer [phone] Random Glucose Calcium Iron 81 TIBC 292 Iron Saturation 28 10/25/16 10/25/16 10/25/16 05:15 05:15 05:43 WBC RBC Hgb Hct MCV MCHC RDW Plt Count MPV Neutrophils % Lymphocytes % Monocytes % Eosinophils % Basophils % INR 1.71 H D Sodium 140 Potassium 4.3 Chloride 103 Carbon Dioxide 32 Anion Gap 5 L BUN 39 H Creatinine 1.3 POC Glucometer [phone] Random Glucose 132 H Calcium 8.2 L Iron TIBC Iron Saturation Active Medications Generic Name Dose Route Start Last Admin Trade Name Freq PRN Reason Stop Dose Admin Albuterol Sulfate 1 amp 10/22/16 12:51 Ventolin 0.083% Nebulizer Soln - NEB Q4H PRN SHORT OF BREATH/WHEEZING Albuterol/Ipratropium 1 amp 10/22/16 13:00 10/25/16 11:10 Duoneb - NEB 1 amp QIDR RUBIA Administration Chlorhexidine Gluconate 1 applic 04/14/17 22:00 10/24/16 21:55 Hibiclens For Decolonization - TP 1 applic HS RUBIA Administration Docusate Sodium 100 mg 10/25/16 10:00 10/25/16 10:14 Colace - PO 100 mg DAILY RUBIA Administration Furosemide 40 mg 10/25/16 13:04 Lasix - PO DAILY RUBIA Losartan Potassium 25 mg 10/25/16 10:00 10/25/16 10:14 Cozaar - PO 25 mg DAILY RUBIA Administration Methylprednisolone Sodium Succinate 80 mg 10/23/16 10:00 10/25/16 10:10 Solu-Medrol - IVPB 80 mg DAILY RUBIA Administration Metoprolol Tartrate 25 mg 10/24/16 10:00 10/25/16 10:15 Lopressor - PO 25 mg BID RUBIA Administration Mupirocin 1 applic 10/22/16 22:00 10/25/16 10:15 Bactroban Ointment (For Decolonization) - NS 10/27/16 21:59 1 applic BID RUBIA Administration Nystatin 1 applic 10/23/16 10:00 10/25/16 10:17 Nystop Powder - TP 1 applic DAILY RUBIA Administration Pantoprazole Sodium 40 mg 10/25/16 22:00 Protonix - PO BID RUBIA Polyethylene Glycol 17 gm 10/25/16 10:00 10/25/16 10:16 Miralax (For Daily Use) - PO 17 grams BID RUBIA Administration ASSESSMENT/PLAN: acute hypoxic hypercapnic respiratory failure, could be from copd excerbration improved on nasal canula 2 L with spo2> 90 keep spo2>90 on duoneb q6h standing and albuterol q4h monitor vitals monitor intake/ output anemia, haemolytic anemia, 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 gi and haematology on case Hypotension improve Lacticacidosis improved kameron on ckd cr decreased to 1.3 monitor cr avoid nehrotoxic drugs chronic CHF startyed lasix 40po daily elevated LFT improved H/o cad/ afib hold coumadin in view of anemia and gi bleed rate control with toprol xl 50 [id number] score of 5 cardiology on case Hyperkalemia :could be from haemolysis improved K 4.3 electrolyte : repeat in am nutrition; low salt diet dvt pro : scd b/l gi pro : on protonix po bid cortis ( central line ) removed, patient had a bleeding from cortis site, which stopped after pressure. Dispo: transfer to tele Visit type - Emergency Visit Emergency Visit: Yes ED Registration Date: 10/22/16 Care time: The patient presented to the Emergency Department on the above date and was hospitalized for further evaluation of their emergent condition. - New Patient This patient is new to me today: No - Critical Care Critical Care patient: Yes Total Critical Care Time (in minutes): 45 Critical Care Statement: The care of this patient involved high complexity decision making to prevent further life threatening deterioration of the patient 's condition and/or to evalute & treat vital organ system(s) failure or risk of failure.
[2016-10-25] MEDS: FUROSEMIDE 40 MG TABLET (FP) PO SCH (13:34)
--- NOTE | 2016-10-25 16:31 | PN ---
Progress Note (short form) - Note Progress Note: patient seen and examined Last Vital Signs Temp Pulse Resp BP Pulse Ox 97.7 F 92 H 16 134/75 100 10/25/16 06:42 10/25/16 14:00 10/25/16 14:00 10/25/16 14:00 10/25/16 08:05 Cor: RSR, No murmurs, No gallops Lungs: Clear to P&A Abd: Soft, Normal bowel sounds, No organomegaly Ext:No significant edema Skin: No rashes, Integument intact Abnormal Lab Results 10/22/16 10/25/16 10/25/16 10:30 05:15 05:15 WBC 2.7 L RBC 2.64 L Hgb 8.6 L Hct 26.1 L MCV 98.8 H RDW 21.3 H Plt Count 127 L MPV 7.4 L Lymphocytes % 5.3 L Monocytes % 12.1 H INR Anion Gap 5 L BUN 39 H Random Glucose 132 H Calcium 8.2 L Antibody Screen Positive H Crossmatch See Detail 10/25/16 05:15 WBC RBC Hgb Hct MCV RDW Plt Count MPV Lymphocytes % Monocytes % INR 1.71 H D Anion Gap BUN Random Glucose Calcium Antibody Screen Crossmatch Active Medications Generic Name Dose Route Start Last Admin Trade Name Freq PRN Reason Stop Dose Admin Albuterol Sulfate 1 amp 10/22/16 12:51 Ventolin 0.083% Nebulizer Soln - NEB Q4H PRN SHORT OF BREATH/WHEEZING Albuterol/Ipratropium 1 amp 10/22/16 13:00 10/25/16 11:10 Duoneb - NEB 1 amp QIDR RUBIA Administration Chlorhexidine Gluconate 1 applic 10/22/16 22:00 10/24/16 21:55 Hibiclens For Decolonization - TP 1 applic HS RUBIA Administration Docusate Sodium 100 mg 10/25/16 10:00 10/25/16 10:14 Colace - PO 100 mg DAILY RUBIA Administration Furosemide 40 mg 10/25/16 13:04 10/25/16 13:34 Lasix - PO 40 mg DAILY RUBIA Administration Losartan Potassium 25 mg 10/25/16 10:00 10/25/16 10:14 Cozaar - PO 25 mg DAILY RUBIA Administration Methylprednisolone Sodium Succinate 80 mg 10/23/16 10:00 10/25/16 10:10 Solu-Medrol - IVPB 80 mg DAILY RUBIA Administration Metoprolol Tartrate 25 mg 10/24/16 10:00 10/25/16 10:15 Lopressor - PO 25 mg BID RUBIA Administration Mupirocin 1 applic 10/22/16 22:00 10/25/16 10:15 Bactroban Ointment (For Decolonization) - NS 10/27/16 21:59 1 applic BID RUBIA Administration Nystatin 1 applic 10/23/16 10:00 10/25/16 10:17 Nystop Powder - TP 1 applic DAILY RUBIA Administration Pantoprazole Sodium 40 mg 10/25/16 22:00 Protonix - PO BID [facility]UBIA Polyethylene Glycol 17 gm 10/25/16 10:00 10/25/16 10:16 Miralax (For Daily Use) - PO 17 grams BID RUBIA Administration A/P 86 y/o patient with anemia, + benson agglutinin + cold agglutinin nl LDH/haptoglobin ? extravascular hemolysis will check u/s abdomen _+ mycoplasma titers--will disucuss with ID check B12/folate/TSH/ flowcytometry _ IgM monoclonal protein : check SFLCA. Quant. Immunoglobulins On steroids--solumedrol 80mg IVPB daily--change to 40g ivpb bid
[2016-10-25] MEDS: CHLORHEXIDINE GLUCONATE 4% CLEANSER FOR DECOLONIZATION TP SCH (21:02)
[2016-10-25] MEDS: PANTOPRAZOLE 40 MG TABLET (FP) PO SCH (21:06)
[2016-10-26 00:06] LABS: HEP B SURFACE AB Reactive (.)
--- NOTE | 2016-10-26 06:19 | PN ---
Progress Note (short form) - Note Progress Note: Chief Complaint: Events noted, notes reviewed, resting in bed, denies any chest pain but reports dyspnea but improved, hemodynamically stable, remains in atrial fibrillation, rate controlled History of Present Illness: Seen and examined in the ICU. Events noted, notes reviewed, resting in bed, denies any chest pain but reports dyspnea but improved, hemodynamically stable, remains in atrial fibrillation, rate controlled Hematology note appreciated As outlined A/C may need to be deferred pending resolution of current pathology , last INR from 10/23/16 noted As outlined in the prior notes operative report from [facility] had revealed ASD repair, Cry-Maze and ligation of LA appendage so patient will not be eligible for NATE closure device (Watchman procedure) - Current Medication List Current Medications Albuterol Sulfate (Ventolin 0.083% Nebulizer Soln -) 1 amp NEB Q4H PRN PRN Reason: SHORT OF BREATH/WHEEZING Albuterol/Ipratropium (Duoneb -) 1 amp NEB QIDR [facility] Last Admin: 10/25/16 23:37 Dose: 1 amp Chlorhexidine Gluconate (Hibiclens For Decolonization -) 1 applic TP HS [facility] Last Admin: 10/25/16 21:02 Dose: 1 applic Docusate Sodium (Colace -) 100 mg PO DAILY [facility] Last Admin: 10/25/16 10:14 Dose: 100 mg Furosemide (Lasix -) 40 mg PO DAILY [facility] Last Admin: 10/25/16 13:34 Dose: 40 mg Losartan Potassium (Cozaar -) 25 mg PO DAILY [facility] Last Admin: 10/25/16 10:14 Dose: 25 mg Methylprednisolone Sodium Succinate (Solu-Medrol -) 40 mg IVPB Q12H [facility] Metoprolol Tartrate (Lopressor -) 25 mg PO BID [facility] Last Admin: 10/25/16 21:02 Dose: 25 mg Mupirocin (Bactroban Ointment (For Decolonization) -) 1 applic NS BID [facility] Stop: 10/27/16 21:59 Last Admin: 10/25/16 21:03 Dose: 1 applic Nystatin (Nystop Powder -) 1 applic TP DAILY [facility] Last Admin: 10/25/16 10:17 Dose: 1 applic Pantoprazole Sodium (Protonix -) 40 mg PO BID [facility] Last Admin: 10/25/16 21:06 Dose: 40 mg Polyethylene Glycol (Miralax (For Daily Use) -) 17 gm PO BID [facility] Last Admin: 10/25/16 21:06 Dose: 17 grams Review of Systems Constitutional: denies Chills or Fever Respiratory: reports: Dyspnea but improved Cardiovascular: As noted above Gastrointestinal: denies Nausea, Vomiting, Diarrhea or Constipation or Abdominal Discomfort Genitourinary: No Symptoms Reported Musculoskeletal: No Symptoms Reported - Objective Vital Signs: Last Vital Signs Temp Pulse Resp BP Pulse Ox 97.4 F L 85 20 112/66 100 10/26/16 02:00 10/26/16 04:00 10/26/16 04:00 10/26/16 04:00 10/25/16 21:33 Intake & Output 10/23/16 10/24/16 10/25/16 10/26/16 23:59 23:59 23:59 23:59 Intake Total 1090 1250 1100 Output Total 1000 400 900 Balance 90 850 200 Weight 205 lb 8 oz 210 lb 1 oz Neck: Supple Negative JVD No Bruit Cardiovascular: S1 S2 Regular Rate Rhythm grade 2/6 SM Respiratory: Diminished Breath Sound at the Bases Gastrointestinal: Soft Benign Normal Bowel Sounds Ext: No Edema Labs: CBC, BMP 10/25/16 05:15 10/25/16 05:15 INR, PTT INR 1.71 (0.82-1.09) H D 10/25/16 05:15 Blood test from this AM pending Assessment/Plan ASSESSMENT: 1. Post acute hypercapneic respiratory failure etiology probably multi- factorial acute exacerbation of COPD, underlying anemia, post extubation 2. Diastolic LV dysfunction with chronic class I-II NYHA association LV failure , compensated 3. 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 Persistent atrial fibrillation post Cryo-Maze and NATE ligation, [id number] score of 5, currently off of A/C 5. 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 Wade cytopenia, post transfusion, possible hemolysis vs bone marrow suppression 7. HTN 8. Hypercholesterolemia 9. ASD post surgical repair 10. CKD PLAN: 1. Transfuse to maintain Hg equal or > 8.0 2. As outlined recommend withholding Coumadin therapy at this point indefinitely recognizing elevated stroke risk ([id number] score of 5) considering the above noted presentation, pending resolution 3. Antibiotics as per the primary team 4. Continue Lasix 5. Continue Lopressor, hemodynamics permitting 6. Continue Cozaar, hemodynamic permitting with close monitoring of renal function Nova Jara MD
[2016-10-26] MEDS: ALBUTEROL SO4 2.5/IPRATROPIUM 0.5 INH SOL 3 ML VIAL.NEB. NEB SCH ×4 (06:27→23:47)
[2016-10-26 06:33] LABS: BASOPHIL 0.2 % (0-2.0); EOSINOPHIL 0.2 % (0-4.5); MCH 32.7 pg (25.7-33.7); MCHC 33.3 g/dl (32.0-35.9); MEAN CELL VOLUME 98.3 fl (80-96); MEAN PLT VOLUME 7.2 fl (7.5-11.1); NEUTROPHILS 75.9 % (42.8-82.8); PLATELET COUNT 118 K/MM3 (134-434); WHITE BLOOD COUNT 2.8 K/mm3 (4.0-10.0)
[2016-10-26 07:47] LABS: CALCIUM 8.1 mg/dL (8.5-10.1); COCKROFT - GAULT 58.4; CREATININE 1.2 mg/dL (0.7-1.3); URIC ACID 6.6 mg/dL (2.6-7.2)
[2016-10-26] MEDS: FUROSEMIDE 40 MG TABLET (FP) PO SCH (09:18)
[2016-10-26] MEDS: MUPIROCIN 2% TOPICAL OINTMENT FOR DECOLONIZATION NS SCH ×2 (09:18→21:32)
[2016-10-26] MEDS: PANTOPRAZOLE 40 MG TABLET (FP) PO SCH ×2 (09:18→21:33)
[2016-10-26] MEDS: LOSARTAN POTASSIUM 25 MG TABLET PO SCH (09:18)
[2016-10-26] MEDS: METOPROLOL TARTRATE 25 MG TABLET (FP) PO SCH ×2 (09:18→21:33)
[2016-10-26] MEDS: DOCUSATE SODIUM 100 MG CAPSULE (FP) PO SCH (09:18)
[2016-10-26] MEDS: NYSTATIN POWDER 100,000 UNITS/GM - 15 GM TOPICAL POWDER TP SCH (09:19)
[2016-10-26] MEDS: methylPREDNISolone NA SUCC 40 MG/1 ML VIAL IVPB SCH ×2 (09:23→21:33)
[2016-10-26] MEDS ORDERED: FUROSEMIDE 40 MG TABLET (FP) PO SCH (10:00)
--- NOTE | 2016-10-26 12:48 | PN ---
Teaching Attending Note Name of Resident: Cristian Lewis ATTENDING PHYSICIAN STATEMENT I saw and evaluated the patient. I reviewed the resident's note and discussed the case with the resident. I agree with the resident's findings and plan as documented. SUBJECTIVE: Pt seen and examined in the ICU. No events overnight. Still with dark stools. Denies shortness of breath or chest pain. OBJECTIVE: Last Vital Signs Temp Pulse Resp BP Pulse Ox 98.3 F 100 H 18 119/66 97 10/26/16 10:00 10/26/16 12:00 10/26/16 12:00 10/26/16 12:00 10/26/16 09:58 Intake & Output 10/23/16 10/24/16 10/25/16 10/26/16 23:59 23:59 23:59 23:59 Intake Total 1090 1250 1100 Output Total 1000 400 900 400 Balance 90 850 200 -400 Weight 205 lb 8 oz 210 lb 1 oz 209 lb 14.4 oz Gen: NAD in chair Heart: irregular Lung: scattered rales Abd: soft, nontender Ext: + edema CBC, BMP 10/26/16 05:50 10/26/16 05:50 Active Medications Albuterol Sulfate (Ventolin 0.083% Nebulizer Soln -) 1 amp NEB Q4H PRN PRN Reason: SHORT OF BREATH/WHEEZING Albuterol/Ipratropium (Duoneb -) 1 amp NEB QIDR [facility] Last Admin: 10/26/16 11:05 Dose: 1 amp Chlorhexidine Gluconate (Hibiclens For Decolonization -) 1 applic TP HS [facility] Last Admin: 10/25/16 21:02 Dose: 1 applic Docusate Sodium (Colace -) 100 mg PO DAILY [facility] Last Admin: 10/26/16 09:18 Dose: 100 mg Furosemide (Lasix -) 40 mg PO DAILY [facility] Last Admin: 10/26/16 09:18 Dose: 40 mg Losartan Potassium (Cozaar -) 25 mg PO DAILY [facility] Last Admin: 10/26/16 09:18 Dose: 25 mg Methylprednisolone Sodium Succinate (Solu-Medrol -) 40 mg IVPB Q12H [facility] Last Admin: 10/26/16 09:23 Dose: 40 mg Metoprolol Tartrate (Lopressor -) 25 mg PO BID [facility] Last Admin: 10/26/16 09:18 Dose: 25 mg Mupirocin (Bactroban Ointment (For Decolonization) -) 1 applic NS BID [facility] Stop: 10/27/16 21:59 Last Admin: 10/26/16 09:18 Dose: 1 applic Nystatin (Nystop Powder -) 1 applic TP DAILY [facility] Last Admin: 10/26/16 09:19 Dose: 1 applic Pantoprazole Sodium (Protonix -) 40 mg PO BID [facility] Last Admin: 10/26/16 09:18 Dose: 40 mg Polyethylene Glycol (Miralax (For Daily Use) -) 17 gm PO BID [facility] Last Admin: 10/25/16 21:06 Dose: 17 grams ASSESSMENT AND PLAN: s/p Acute Hypercapneic Respiratory Failure Acute COPD Exacerbation LV Diastolic Dysfunction Pulmonary HTN CAD Atrial Fibrillation Pancytopenia HTN CKD ASD s/p repair r/o myeloproliferative disorder - continue to monitor off antibiotics - empiric medrol - inhaled bronchodilators - monitor CBC - transfuse as needed - f/u flow cytometry - may need BMBx - continue lasix - PO as tolerated - DVT/GI prophylaxis - can monitor on telemetry
--- NOTE | 2016-10-26 12:55 | PN ---
Physical Exam: SUBJECTIVE: Patient seen and examined patient sitting comfartably in chair denies sob, chest pain, palpitations denies blood in stool haemoglobin stable. OBJECTIVE: Vital Signs Period Temp Pulse Resp BP Sys/Brian Pulse Ox Last 24 Hr 97.4 F-98.3 F 83-102 16-20 102-134/50-87 97-100 GENERAL:awake, alert, oriented NECK: Trachea midline, full range of motion, supple. LUNGS: Breath sounds equal, clear to auscultation bilaterally, no wheezes, mild crackles , no accessory muscle use. HEART:s1s2 normal ABDOMEN: Soft, nontender, nondistended, normoactive bowel sounds, no guarding, no rebound EXTREMITIES: 2+ pulses, warm, pedal edema 1+ PSYCH: Normal mood, normal affect. SKIN: Warm, dry, Laboratory Results - last 24 hr 10/23/16 10/24/16 10/26/16 15:16 05:25 05:50 WBC 2.8 L RBC 2.66 L Hgb 8.7 L Hct 26.2 L MCV 98.3 H MCHC 33.3 RDW 21.0 H Plt Count 118 L MPV 7.2 L Neutrophils % 75.9 Lymphocytes % 8.4 D Monocytes % 15.3 H Eosinophils % 0.2 D Basophils % 0.2 Sodium Potassium Chloride Carbon Dioxide Anion Gap BUN Creatinine POC Glucometer Random Glucose Uric Acid Calcium LD Total Vitamin B12 Hep A IgM Ab Confirm Negative Hepatitis A Ab Total Positive H Hep Bs Antigen Negative Hep Bs Antibody Reactive Hep B Core Total Ab Positive H Hepatitis C Antibody 0.1 Direct Antiglob Test 10/26/16 10/26/16 10/26/16 05:50 05:50 05:50 WBC RBC Hgb Hct MCV MCHC RDW Plt Count MPV Neutrophils % Lymphocytes % Monocytes % Eosinophils % Basophils % Sodium 137 Potassium 4.1 Chloride 100 Carbon Dioxide 34 H Anion Gap 3 L BUN 36 H Creatinine 1.2 POC Glucometer Random Glucose 123 H Uric Acid 6.6 Calcium 8.1 L LD Total 150 Vitamin B12 868 Hep A IgM Ab Confirm Hepatitis A Ab Total Hep Bs Antigen Hep Bs Antibody Hep B Core Total Ab Hepatitis C Antibody Direct Antiglob Test Positive H 10/26/16 10/26/16 05:51 10:52 WBC RBC Hgb Hct MCV MCHC RDW Plt Count MPV Neutrophils % Lymphocytes % Monocytes % Eosinophils % Basophils % Sodium Potassium Chloride Carbon Dioxide Anion Gap BUN Creatinine POC Glucometer [id number] 152.39832 Random Glucose Uric Acid Calcium LD Total Vitamin B12 Hep A IgM Ab Confirm Hepatitis A Ab Total Hep Bs Antigen Hep Bs Antibody Hep B Core Total Ab Hepatitis C Antibody Direct Antiglob Test Active Medications Generic Name Dose Route Start Last Admin Trade Name Freq PRN Reason Stop Dose Admin Albuterol Sulfate 1 amp 10/22/16 12:51 Ventolin 0.083% Nebulizer Soln - NEB Q4H PRN SHORT OF BREATH/WHEEZING Albuterol/Ipratropium 1 amp 10/22/16 13:00 10/26/16 11:05 Duoneb - NEB 1 amp QIDR RUBIA Administration Chlorhexidine Gluconate 1 applic 10/22/16 22:00 10/25/16 21:02 Hibiclens For Decolonization - TP 1 applic HS RUBIA Administration Docusate Sodium 100 mg 10/25/16 10:00 10/26/16 09:18 Colace - PO 100 mg DAILY RUBIA Administration Furosemide 40 mg 10/25/16 13:04 10/26/16 09:18 Lasix - PO 40 mg DAILY RUBIA Administration Losartan Potassium 25 mg 10/25/16 10:00 10/26/16 09:18 Cozaar - PO 25 mg DAILY RUBIA Administration Methylprednisolone Sodium Succinate 40 mg 10/26/16 10:00 10/26/16 09:23 Solu-Medrol - IVPB 40 mg Q12H RUBIA Administration Metoprolol Tartrate 25 mg 10/24/16 10:00 10/26/16 09:18 Lopressor - PO 25 mg BID RUBIA Administration Mupirocin 1 applic 10/22/16 22:00 10/26/16 09:18 Bactroban Ointment (For Decolonization) - NS 10/27/16 21:59 1 applic BID RUBIA Administration Nystatin 1 applic 10/23/16 10:00 10/26/16 09:19 Nystop Powder - TP 1 applic DAILY RUBIA Administration Pantoprazole Sodium 40 mg 10/25/16 22:00 10/26/16 09:18 Protonix - PO 40 mg BID RUBIA Administration Polyethylene Glycol 17 gm 10/25/16 10:00 10/25/16 21:06 Miralax (For Daily Use) - PO 17 grams BID RUBIA Administration ASSESSMENT/PLAN: acute hypoxic hypercapnic respiratory failure, could be from copd excerbration improved on nasal canula 2 L with spo2> 90 keep spo2>90 on duoneb q6h standing and albuterol q4h monitor vitals monitor intake/ output anemia, haemolytic anemia, 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 Hypotension improve Lacticacidosis improved kameron on ckd cr decreased to 1.2 monitor cr avoid nehrotoxic drugs chronic CHF on lasix 40po daily elevated LFT improved H/o cad/ afib hold coumadin in view of anemia and gi bleed rate control with toprol xl 50 on losartan and lasix [id number] score of 5 cardiology on case Hyperkalemia :could be from haemolysis improved K 4.1 electrolyte : repeat in am nutrition; low salt diet dvt pro : scd b/l gi pro : on protonix po bid Dispo: transfer to tele Visit type - Emergency Visit Emergency Visit: Yes ED Registration Date: 10/22/16 Care time: The patient presented to the Emergency Department on the above date and was hospitalized for further evaluation of their emergent condition. - New Patient This patient is new to me today: No - Critical Care Critical Care patient: Yes Total Critical Care Time (in minutes): 45 Critical Care Statement: The care of this patient involved high complexity decision making to prevent further life threatening deterioration of the patient 's condition and/or to evalute & treat vital organ system(s) failure or risk of failure.
--- NOTE | 2016-10-26 15:32 | PN ---
[id number] bedside, he has no complaints at this time. Current Medications Generic Name Dose Route Start Last Admin Trade Name Freq PRN Reason Stop Dose Admin Albuterol Sulfate 1 amp 10/22/16 12:51 Ventolin 0.083% Nebulizer Soln - NEB Q4H PRN SHORT OF BREATH/WHEEZING Albuterol/Ipratropium 1 amp 10/22/16 13:00 10/26/16 11:05 Duoneb - NEB 1 amp QIDR RUBIA Administration Chlorhexidine Gluconate 1 applic 10/22/16 22:00 10/25/16 21:02 Hibiclens For Decolonization - TP 1 applic HS RUBIA Administration Docusate Sodium 100 mg 10/25/16 10:00 10/26/16 09:18 Colace - PO 100 mg DAILY RUBIA Administration Furosemide 40 mg 10/25/16 13:04 10/26/16 09:18 Lasix - PO 40 mg DAILY RUBIA Administration Losartan Potassium 25 mg 10/25/16 10:00 10/26/16 09:18 Cozaar - PO 25 mg DAILY RUBIA Administration Methylprednisolone Sodium Succinate 40 mg 10/26/16 10:00 10/26/16 09:23 Solu-Medrol - IVPB 40 mg Q12H RUBIA Administration Metoprolol Tartrate 25 mg 10/24/16 10:00 10/26/16 09:18 Lopressor - PO 25 mg BID RUBIA Administration Mupirocin 1 applic 10/22/16 22:00 10/26/16 09:18 Bactroban Ointment (For Decolonization) - NS 10/27/16 21:59 1 applic BID RUBIA Administration Nystatin 1 applic 10/23/16 10:00 10/26/16 09:19 Nystop Powder - TP 1 applic DAILY RUBIA Administration Pantoprazole Sodium 40 mg 10/25/16 22:00 10/26/16 09:18 Protonix - PO 40 mg BID RUBIA Administration Polyethylene Glycol 17 gm 10/25/16 10:00 10/25/16 21:06 Miralax (For Daily Use) - PO 17 grams BID RUBIA Administration Objective: Vital Signs Period Temp Pulse Resp BP Sys/Brian Pulse Ox Last 24 Hr 97.4 F-98.3 F 83-102 16-20 102-129/50-87 97-100 Physical Exam: General: NAD, A&Ox3 Lungs: Decreased breath sounds bilaterally Heart: RRR, S1S2 Abd: Soft, non-tender, non-distended. Normoactive bowel sounds Ext: Multiple b/l upper extremity eccymosis. B/l lower extremity edema Neuro: CN 2-12 intact CBCD WBC 2.8 K/mm3 (4.0-10.0) L 10/26/16 05:50 RBC 2.66 M/mm3 (4.00-5.60) L 10/26/16 05:50 Hgb 8.7 GM/dL (11.7-16.9) L 10/26/16 05:50 Hct 26.2 % (35.4-49) L 10/26/16 05:50 MCV 98.3 fl (80-96) H 10/26/16 05:50 MCHC 33.3 g/dl (32.0-35.9) 10/26/16 05:50 RDW 21.0 % (11.9-15.9) H 10/26/16 05:50 Plt Count 118 K/MM3 (134-434) L 10/26/16 05:50 MPV 7.2 fl (7.5-11.1) L 10/26/16 05:50 CMP Sodium 137 mmol/L (136-145) 10/26/16 05:50 Potassium 4.1 mmol/L (3.5-5.1) 10/26/16 05:50 Chloride 100 mmol/L (98-107) 10/26/16 05:50 Carbon Dioxide 34 mmol/L (21-32) H 10/26/16 05:50 Anion Gap 3 (8-16) L 10/26/16 05:50 BUN 36 mg/dL (7-18) H 10/26/16 05:50 Creatinine 1.2 mg/dL (0.7-1.3) 10/26/16 05:50 Creat Clearance w eGFR 41.09 (>60) 10/24/16 05:25 Random Glucose 123 mg/dL (74-106) H 10/26/16 05:50 Calcium 8.1 mg/dL (8.5-10.1) L 10/26/16 05:50 Total Bilirubin 1.7 mg/dL (0.2-1.0) H 10/24/16 05:25 AST 27 U/L (15-37) D 10/24/16 05:25 ALT 33 U/L (12-78) 10/24/16 05:25 Alkaline Phosphatase 65 U/L (45-117) 10/24/16 05:25 Total Protein 7.4 g/dl (6.4-8.2) 10/24/16 05:25 Albumin 2.8 g/dl (3.4-5.0) L 10/24/16 05:25 CARDIAC ENZYMES Creatine Kinase 35 IU/L (39-308) L 10/23/16 06:05 Troponin I 0.13 ng/ml (0.00-0.05) H D 10/23/16 06:05 Microbiology 10/22/16 15:30 Nasopharyngeal Swab Respiratory Virus Panel - Preliminary 10/22/16 13:47 Blood - Peripheral Venous Blood Culture - Preliminary NO GROWTH OBTAINED AFTER 96 HOURS, INCUBATION TO CONTINUE FOR 1 DAYS. 10/22/16 13:40 Blood - Peripheral Venous Blood Culture - Preliminary NO GROWTH OBTAINED AFTER 96 HOURS, INCUBATION TO CONTINUE FOR 1 DAYS. 10/22/16 10:30 Blood - Peripheral Venous Blood Culture - Preliminary NO GROWTH OBTAINED AFTER 96 HOURS, INCUBATION TO CONTINUE FOR 1 DAYS. 10/22/16 10:30 Blood - Peripheral Venous Blood Culture - Preliminary NO GROWTH OBTAINED AFTER 96 HOURS, INCUBATION TO CONTINUE FOR 1 DAYS. 10/22/16 15:30 Nasopharyngeal Swab Influenza Types A,B Antigen (LEA) - Final 10/22/16 15:30 Nasopharyngeal Swab - Final 10/22/16 10:46 Urine - Urine Clean Catch Urine Culture - Final NO GROWTH OBTAINED Assessment: This is an 86 year old male with PMHx of asthma, anemia, CHF, a.fib (on home Coumadin), CAD, ASD, COPD, pulmonary htn, HTN, hyperlipidemia, GI bleeding who presented to the ED in respiratory distress Plan: 1) Pulmonary: Acute hypercapnic Hypoxic Respiratory Failure - Extubated yesterday - Breathing continues to improve - Continue Solu-medrol 40 IVPB bid - Continue duonebs - Continue to monitor off abx - Appreciate pulmonary/cc consult 2) Hematology: Anemia, neutropenia - Acute blood loss, stool for occult blood positive - Hold off blood transfusions, Hgb stable - For flow cytometry for MDS yesterday - Appreciate hematology consult Extravascular hemolysis? - Cold agglutinin +, warm agglutinin + - Carmen positive - + m.pneumoniae IgG and IgM positive 3) Cardiology: A.fib - Currently withholding Coumadin per cardiology 2/2 anemia Diastolic LV dysfunction, compensated - Continue Lasix - Continue Lopressor - Continue Cozaar ASD - S/p repair 4) F/E/N: - Sodium controlled diet - Monitor electrolytes 5) Prophylaxis: - Hold all chemical dvt prophylaxis 2/2 anemia 6) Dispo: - Requires continued inpatient care CODE STATUS: FULL CODE Visit type - Emergency Visit Emergency Visit: Yes ED Registration Date: 10/22/16 Care time: The patient presented to the Emergency Department on the above date and was hospitalized for further evaluation of their emergent condition. - New Patient This patient is new to me today: No - Critical Care Critical Care patient: No
[2016-10-26] MEDS: CHLORHEXIDINE GLUCONATE 4% CLEANSER FOR DECOLONIZATION TP SCH (21:33)
--- NOTE | 2016-10-26 21:54 | PN ---
Progress Note (short form) - Note Progress Note: Patient seen and examined OOB-chair Remains SOB Hct relatively stable Pancytopenia Last Vital Signs Temp Pulse Resp BP Pulse Ox 98.2 F 86 22 124/74 97 10/26/16 13:20 10/26/16 17:00 10/26/16 17:00 10/26/16 17:00 10/26/16 09:58 HEENT: TAM, EOM Intact Oropharynx: No thrush, No mucositis Neck: Supple Nodes: Without adenopathy Cor: irregular with extrasystoles Lungs: rhonchi ; diminished sojunds Abd: Soft, Normal bowel sounds, No organomegaly Ext:LE edema Skin: Numerous ecchymoses CBC, BMP 10/26/16 05:50 10/26/16 05:50 INR, PTT INR 1.71 (0.82-1.09) H D 10/25/16 05:15 Current Medications Generic Name Dose Route Start Last Admin Trade Name Freq PRN Reason Stop Dose Admin Albuterol Sulfate 1 amp 10/22/16 12:51 Ventolin 0.083% Nebulizer Soln - NEB Q4H PRN SHORT OF BREATH/WHEEZING Albuterol/Ipratropium 1 amp 10/22/16 13:00 10/26/16 17:25 Duoneb - NEB 1 amp QIDR RUBIA Administration Chlorhexidine Gluconate 1 applic 10/22/16 22:00 10/26/16 21:33 Hibiclens For Decolonization - TP 1 applic HS RUBIA Administration Docusate Sodium 100 mg 10/25/16 10:00 10/26/16 09:18 Colace - PO 100 mg DAILY RUBIA Administration Furosemide 40 mg 10/25/16 13:04 10/26/16 09:18 Lasix - PO 40 mg DAILY RUBIA Administration Losartan Potassium 25 mg 10/25/16 10:00 10/26/16 09:18 Cozaar - PO 25 mg DAILY RUBIA Administration Methylprednisolone Sodium Succinate 40 mg 10/26/16 10:00 10/26/16 21:33 Solu-Medrol - IVPB 40 mg Q12H RUBIA Administration Metoprolol Tartrate 25 mg 10/24/16 10:00 10/26/16 21:33 Lopressor - PO 25 mg BID RUBIA Administration Mupirocin 1 applic 10/22/16 22:00 10/26/16 21:32 Bactroban Ointment (For Decolonization) - NS 10/27/16 21:59 1 applic BID RUBIA Administration Nystatin 1 applic 10/23/16 10:00 10/26/16 09:19 Nystop Powder - TP 1 applic DAILY RUBIA Administration Pantoprazole Sodium 40 mg 10/25/16 22:00 10/26/16 21:33 Protonix - PO 40 mg BID RUBIA Administration Polyethylene Glycol 17 gm 10/25/16 10:00 10/25/16 21:06 Miralax (For Daily Use) - PO 17 grams BID RUBIA Administration Impression: Carmen positive - haptoglobin elevated, direct bilirubin elevated, corrected retic count low, Ldh not elevated-- all against hemolysis, but difficult to explain fall in Hct on admission + Mycoplasma-IgM and IgG =- this would explain the cold antibody Warm reacting antibody- panagglutinin such that least incompatible blood has been transfused x 2 since 10/19 Pancytopenia- developing over past few months- flow pending - ? MDS ?? hypersplenism Hepatosplenomegaly on sono- may be related to an underling hematologic disorder , cardiac disease,or liver disease and may be contributing to pancytopenia Would continue on steroids for now. Titrate INR- to therapeutic range.
[2016-10-26] MEDS: POLYETHYLENE GLYCOL 3350 119 GM BTL PO SCH (22:00)
[2016-10-27] MEDS: POLYETHYLENE GLYCOL 3350 119 GM BTL PO SCH ×2 (01:18→09:22)
[2016-10-27 06:16] LABS: BASOPHIL 0.1 % (0-2.0); MCH 33.8 pg (25.7-33.7); MCHC 33.9 g/dl (32.0-35.9); MEAN CELL VOLUME 99.6 fl (80-96); MEAN PLT VOLUME 7.2 fl (7.5-11.1); NEUTROPHILS 87.5 % (42.8-82.8); PLATELET COUNT 132 K/MM3 (134-434)
[2016-10-27] MEDS: ALBUTEROL SO4 2.5/IPRATROPIUM 0.5 INH SOL 3 ML VIAL.NEB. NEB SCH ×4 (06:49→23:59)
[2016-10-27 06:50] LABS: CALCIUM 8.3 mg/dL (8.5-10.1); CREATININE 1.2 mg/dL (0.7-1.3)
[2016-10-27] MEDS ORDERED: ALBUTEROL SO4 0.083% IH SOL 2.5 MG/3 ML VIAL.NEB. NEB PRN (08:31)
[2016-10-27] MEDS: FUROSEMIDE 40 MG TABLET (FP) PO SCH (09:21)
[2016-10-27] MEDS: DOCUSATE SODIUM 100 MG CAPSULE (FP) PO SCH (09:21)
[2016-10-27] MEDS: PANTOPRAZOLE 40 MG TABLET (FP) PO SCH ×2 (09:21→21:22)
[2016-10-27] MEDS: LOSARTAN POTASSIUM 25 MG TABLET PO SCH (09:22)
[2016-10-27] MEDS: METOPROLOL TARTRATE 25 MG TABLET (FP) PO SCH ×2 (09:22→21:22)
[2016-10-27] MEDS: methylPREDNISolone NA SUCC 40 MG/1 ML VIAL IVPB SCH ×2 (09:23→21:22)
[2016-10-27] MEDS: NYSTATIN POWDER 100,000 UNITS/GM - 15 GM TOPICAL POWDER TP SCH (09:25)
[2016-10-27] MEDS ORDERED: MUPIROCIN 2% TOPICAL OINTMENT FOR DECOLONIZATION NS SCH (10:00)
--- NOTE | 2016-10-27 11:42 | PN ---
Physical Exam: SUBJECTIVE: Patient seen and examined patient sitting comfartably in chair denies sob, chest pain, palpitations denies blood in stool haemoglobin stable. OBJECTIVE: Vital Signs Period Temp Pulse Resp BP Sys/Brian Pulse Ox Last 24 Hr 97.4 F-98.2 F 81-100 17-23 117-135/44-84 96-98 GENERAL:awake, alert, oriented NECK: Trachea midline, full range of motion, supple. LUNGS: Breath sounds equal, clear to auscultation bilaterally, no wheezes, mild crackles , no accessory muscle use. HEART:s1s2 normal ABDOMEN: Soft, nontender, nondistended, normoactive bowel sounds, no guarding, no rebound EXTREMITIES: 2+ pulses, warm, pedal edema 1+ PSYCH: Normal mood, normal affect. SKIN: Warm, dry, Laboratory Results - last 24 hr 10/26/16 10/27/16 10/27/16 05:50 05:15 05:15 WBC 3.0 L RBC 2.58 L Hgb 8.7 L Hct 25.7 L MCV 99.6 H MCHC 33.9 RDW 20.0 H Plt Count 132 L MPV 7.2 L Neutrophils % 87.5 H Lymphocytes % 4.1 L D Monocytes % 8.3 Eosinophils % 0.0 D Basophils % 0.1 Sodium 136 Potassium 4.9 Chloride 96 L Carbon Dioxide 33 H Anion Gap 7 L BUN 35 H Creatinine 1.2 POC Glucometer Random Glucose 159 H D Calcium 8.3 L IgG 904 IgA 135 IgM 2582 H 10/27/16 05:15 WBC RBC Hgb Hct MCV MCHC RDW Plt Count MPV Neutrophils % Lymphocytes % Monocytes % Eosinophils % Basophils % Sodium Potassium Chloride Carbon Dioxide Anion Gap BUN Creatinine POC Glucometer [phone] Random Glucose Calcium IgG IgA IgM Active Medications Generic Name Dose Route Start Last Admin Trade Name Freq PRN Reason Stop Dose Admin Albuterol Sulfate 1 amp 10/27/16 08:31 Ventolin 0.083% Nebulizer Soln - NEB Q4H PRN SHORT OF BREATH/WHEEZING Albuterol/Ipratropium 1 amp 10/27/16 12:00 Duoneb - NEB QIDR RUBIA Chlorhexidine Gluconate 1 applic 10/27/16 22:00 Hibiclens For Decolonization - TP HS RUBIA Docusate Sodium 100 mg 10/27/16 10:00 10/27/16 09:21 Colace - PO 100 mg DAILY RUBIA Administration Furosemide 40 mg 10/27/16 10:00 10/27/16 09:21 Lasix - PO 40 mg DAILY RUBIA Administration Heparin Sodium (Porcine) 5,000 unit 10/27/16 14:00 Heparin - SQ TID RUBIA Losartan Potassium 25 mg 10/27/16 10:00 10/27/16 09:22 Cozaar - PO 25 mg DAILY RUBIA Administration Methylprednisolone Sodium Succinate 40 mg 10/27/16 10:00 10/27/16 09:23 Solu-Medrol - IVPB 40 mg BID RUBIA Administration Metoprolol Tartrate 25 mg 10/27/16 10:00 10/27/16 09:22 Lopressor - PO 25 mg BID RUBIA Administration Mupirocin 1 applic 10/27/16 10:00 10/27/16 09:24 Bactroban Ointment (For Decolonization) - NS 10/27/16 21:59 1 inch BID RUBIA Administration Nystatin 1 applic 10/27/16 10:00 10/27/16 09:25 Nystop Powder - TP 1 applic DAILY RUBIA Administration Pantoprazole Sodium 40 mg 10/27/16 10:00 10/27/16 09:21 Protonix - PO 40 mg BID RUBIA Administration Polyethylene Glycol 17 gm 10/27/16 10:00 10/27/16 09:22 Miralax (For Daily Use) - PO 17 gm BID RUBIA Administration ASSESSMENT/PLAN: acute hypoxic hypercapnic respiratory failure, could be from copd excerbration improved on nasal canula 2 L with spo2> 90 keep spo2>90 on duoneb q6h standing and albuterol q4h monitor vitals monitor intake/ output anemia, haemolytic anemia, 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 Hypotension improve Lacticacidosis improved kameron on ckd cr decreased to 1.2 monitor cr avoid nehrotoxic drugs chronic CHF on lasix 40po daily elevated LFT improved H/o cad/ afib hold coumadin in view of anemia and gi bleed rate control with toprol xl 50 on losartan and lasix [id number] score of 5 cardiology on case Hyperkalemia :could be from haemolysis improved K 4.9 electrolyte : repeat in am nutrition; low salt diet dvt pro : heparin sq gi pro : on protonix po bid Dispo: transfer to tele Visit type - Emergency Visit Emergency Visit: Yes ED Registration Date: 10/22/16 Care time: The patient presented to the Emergency Department on the above date and was hospitalized for further evaluation of their emergent condition. - New Patient This patient is new to me today: No - Critical Care Critical Care patient: Yes Total Critical Care Time (in minutes): 45 Critical Care Statement: The care of this patient involved high complexity decision making to prevent further life threatening deterioration of the patient 's condition and/or to evalute & treat vital organ system(s) failure or risk of failure.
--- NOTE | 2016-10-27 12:03 | PN ---
Teaching Attending Note Name of Resident: Cristian Lewis ATTENDING PHYSICIAN STATEMENT I saw and evaluated the patient. I reviewed the resident's note and discussed the case with the resident. I agree with the resident's findings and plan as documented. SUBJECTIVE: Pt seen and examined in the ICU. No further bleeding. Denies shortness of breath or chest pain. OBJECTIVE: Last Vital Signs Temp Pulse Resp BP Pulse Ox 97.8 F 80 18 121/46 98 10/27/16 10:00 10/27/16 11:47 10/27/16 11:47 10/27/16 11:47 10/27/16 10:35 Intake & Output 10/24/16 10/25/16 10/26/16 10/27/16 23:59 23:59 23:59 23:59 Intake Total 1250 1100 450 200 Output Total 389 760 9736 200 Balance 850 200 -2150 0 Weight 205 lb 8 oz 210 lb 1 oz 209 lb 14.4 oz 210 lb 12.191 oz Gen: NAD at rest Heart: RRR Lung: scattered rhonchi Abd: soft, nontender Ext: + edema CBC, BMP 10/27/16 05:15 10/27/16 05:15 Active Medications Albuterol Sulfate (Ventolin 0.083% Nebulizer Soln -) 1 amp NEB Q4H PRN PRN Reason: SHORT OF BREATH/WHEEZING Albuterol/Ipratropium (Duoneb -) 1 amp NEB QIDR [facility] Chlorhexidine Gluconate (Hibiclens For Decolonization -) 1 applic TP HS [facility] Docusate Sodium (Colace -) 100 mg PO DAILY [facility] Last Admin: 10/27/16 09:21 Dose: 100 mg Furosemide (Lasix -) 40 mg PO DAILY [facility] Last Admin: 10/27/16 09:21 Dose: 40 mg Heparin Sodium (Porcine) (Heparin -) 5,000 unit SQ TID [facility] Losartan Potassium (Cozaar -) 25 mg PO DAILY [facility] Last Admin: 10/27/16 09:22 Dose: 25 mg Methylprednisolone Sodium Succinate (Solu-Medrol -) 40 mg IVPB BID [facility] Last Admin: 10/27/16 09:23 Dose: 40 mg Metoprolol Tartrate (Lopressor -) 25 mg PO BID [facility] Last Admin: 10/27/16 09:22 Dose: 25 mg Mupirocin (Bactroban Ointment (For Decolonization) -) 1 applic NS BID [facility] Stop: 10/27/16 21:59 Last Admin: 10/27/16 09:24 Dose: 1 inch Nystatin (Nystop Powder -) 1 applic TP DAILY [facility] Last Admin: 10/27/16 09:25 Dose: 1 applic Pantoprazole Sodium (Protonix -) 40 mg PO BID [facility] Last Admin: 10/27/16 09:21 Dose: 40 mg Polyethylene Glycol (Miralax (For Daily Use) -) 17 gm PO BID [facility] Last Admin: 10/27/16 09:22 Dose: 17 gm ASSESSMENT AND PLAN: s/p Acute Hypercapneic Respiratory Failure Acute COPD Exacerbation LV Diastolic Dysfunction Pulmonary HTN CAD Atrial Fibrillation HTN CKD ASD s/p repair Pancytopenia r/o myeloproliferative disorder - continue to monitor off antibiotics - empiric medrol - inhaled bronchodilators - monitor CBC - transfuse as needed - f/u flow cytometry - may need BMBx - continue lasix - PO as tolerated - DVT/GI prophylaxis - can monitor on telemetry
--- NOTE | 2016-10-27 14:22 | PN ---
Progress Note (short form) - Note Progress Note: Subjective: The patient was seen and examined at the bedside, he has no complaints at this time. Current Medications Generic Name Dose Route Start Last Admin Trade Name Freq PRN Reason Stop Dose Admin Albuterol Sulfate 1 amp 10/27/16 08:31 Ventolin 0.083% Nebulizer Soln - NEB Q4H PRN SHORT OF BREATH/WHEEZING Albuterol/Ipratropium 1 amp 10/27/16 12:00 10/27/16 12:27 Duoneb - NEB 1 amp QIDR RUBIA Administration Chlorhexidine Gluconate 1 applic 10/27/16 22:00 Hibiclens For Decolonization - TP HS RUBIA Docusate Sodium 100 mg 10/27/16 10:00 10/27/16 09:21 Colace - PO 100 mg DAILY RUBIA Administration Furosemide 40 mg 10/27/16 10:00 10/27/16 09:21 Lasix - PO 40 mg DAILY RUBIA Administration Heparin Sodium (Porcine) 5,000 unit 10/27/16 14:00 Heparin - SQ TID RUBIA Losartan Potassium 25 mg 10/27/16 10:00 10/27/16 09:22 Cozaar - PO 25 mg DAILY RUBIA Administration Methylprednisolone Sodium Succinate 40 mg 10/27/16 10:00 10/27/16 09:23 Solu-Medrol - IVPB 40 mg BID RUBIA Administration Metoprolol Tartrate 25 mg 10/27/16 10:00 10/27/16 09:22 Lopressor - PO 25 mg BID RUBIA Administration Mupirocin 1 applic 10/27/16 10:00 10/27/16 09:24 Bactroban Ointment (For Decolonization) - NS 10/27/16 21:59 1 inch BID RUBIA Administration Nystatin 1 applic 10/27/16 10:00 10/27/16 09:25 Nystop Powder - TP 1 applic DAILY RUBIA Administration Pantoprazole Sodium 40 mg 10/27/16 10:00 10/27/16 09:21 Protonix - PO 40 mg BID RUBIA Administration Polyethylene Glycol 17 gm 10/27/16 10:00 10/27/16 09:22 Miralax (For Daily Use) - PO 17 gm BID RUBIA Administration Objective: Vital Signs Period Temp Pulse Resp BP Sys/Brian Pulse Ox Last 24 Hr 97.4 F-98 F 80-99 17-23 117-135/44-84 96-98 Physical Exam: General: NAD, A&Ox3 Lungs: Decreased breath sounds bilaterally Heart: RRR, S1S2 Abd: Soft, non-tender, non-distended. Normoactive bowel sounds Ext: Multiple b/l upper extremity eccymosis. B/l lower extremity edema Neuro: CN 2-12 intact CBCD WBC 3.0 K/mm3 (4.0-10.0) L 10/27/16 05:15 RBC 2.58 M/mm3 (4.00-5.60) L 10/27/16 05:15 Hgb 8.7 GM/dL (11.7-16.9) L 10/27/16 05:15 Hct 25.7 % (35.4-49) L 10/27/16 05:15 MCV 99.6 fl (80-96) H 10/27/16 05:15 MCHC 33.9 g/dl (32.0-35.9) 10/27/16 05:15 RDW 20.0 % (11.9-15.9) H 10/27/16 05:15 Plt Count 132 K/MM3 (134-434) L 10/27/16 05:15 MPV 7.2 fl (7.5-11.1) L 10/27/16 05:15 CMP Sodium 136 mmol/L (136-145) 10/27/16 05:15 Potassium 4.9 mmol/L (3.5-5.1) 10/27/16 05:15 Chloride 96 mmol/L (98-107) L 10/27/16 05:15 Carbon Dioxide 33 mmol/L (21-32) H 10/27/16 05:15 Anion Gap 7 (8-16) L 10/27/16 05:15 BUN 35 mg/dL (7-18) H 10/27/16 05:15 Creatinine 1.2 mg/dL (0.7-1.3) 10/27/16 05:15 Creat Clearance w eGFR 41.09 (>60) 10/24/16 05:25 Random Glucose 159 mg/dL (74-106) H D 10/27/16 05:15 Calcium 8.3 mg/dL (8.5-10.1) L 10/27/16 05:15 Total Bilirubin 1.7 mg/dL (0.2-1.0) H 10/24/16 05:25 AST 27 U/L (15-37) D 10/24/16 05:25 ALT 33 U/L (12-78) 10/24/16 05:25 Alkaline Phosphatase 65 U/L (45-117) 10/24/16 05:25 Total Protein 7.4 g/dl (6.4-8.2) 10/24/16 05:25 Albumin 2.8 g/dl (3.4-5.0) L 10/24/16 05:25 CARDIAC ENZYMES Creatine Kinase 35 IU/L (39-308) L 10/23/16 06:05 Troponin I 0.13 ng/ml (0.00-0.05) H D 10/23/16 06:05 Microbiology 10/22/16 13:47 Blood - Peripheral Venous Blood Culture - Final NO GROWTH AFTER 5 DAYS INCUBATION 10/22/16 13:40 Blood - Peripheral Venous Blood Culture - Final NO GROWTH AFTER 5 DAYS INCUBATION 10/22/16 10:30 Blood - Peripheral Venous Blood Culture - Final NO GROWTH AFTER 5 DAYS INCUBATION 10/22/16 10:30 Blood - Peripheral Venous Blood Culture - Final NO GROWTH AFTER 5 DAYS INCUBATION 10/22/16 15:30 Nasopharyngeal Swab Respiratory Virus Panel - Preliminary 10/22/16 15:30 Nasopharyngeal Swab Influenza Types A,B Antigen (LEA) - Final 10/22/16 15:30 Nasopharyngeal Swab - Final 10/22/16 10:46 Urine - Urine Clean Catch Urine Culture - Final NO GROWTH OBTAINED Assessment: This is an 86 year old male with PMHx of asthma, anemia, CHF, a.fib (on home Coumadin), CAD, ASD, COPD, pulmonary htn, HTN, hyperlipidemia, GI bleeding who presented to the ED in respiratory distress Plan: 1) Pulmonary: Acute hypercapnic Hypoxic Respiratory Failure - Extubated yesterday - Breathing continues to improve - Continue Solu-medrol 40 IVPB bid - Continue duonebs - Continue to monitor off abx - Appreciate pulmonary/cc consult 2) Hematology: Anemia, neutropenia - Acute blood loss, stool for occult blood positive - Hold off blood transfusions, Hgb stable - For flow cytometry for MDS yesterday - Appreciate hematology consult 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 Will defer restarting to cards/heme Diastolic LV dysfunction, compensated - Continue Lasix - Continue Lopressor - Continue Cozaar ASD - S/p repair 4) F/E/N: - Sodium controlled diet - Monitor electrolytes 5) Prophylaxis: - Started on Heparin 5,000u sq tid for DVT prophylaxis 6) Dispo: - Requires continued inpatient care CODE STATUS: FULL CODE Visit type - Emergency Visit Emergency Visit: Yes ED Registration Date: 10/22/16 Care time: The patient presented to the Emergency Department on the above date and was hospitalized for further evaluation of their emergent condition. - New Patient This patient is new to me today: No - Critical Care Critical Care patient: No
--- NOTE | 2016-10-27 15:00 | PN ---
Progress Note, Physician History of Present Illness: Comfortable OOB to chair. - Current Medication List Current Medications: Active Medications Albuterol Sulfate (Ventolin 0.083% Nebulizer Soln -) 1 amp NEB Q4H PRN PRN Reason: SHORT OF BREATH/WHEEZING Albuterol/Ipratropium (Duoneb -) 1 amp NEB QIDR [facility] Last Admin: 10/27/16 12:27 Dose: 1 amp Chlorhexidine Gluconate (Hibiclens For Decolonization -) 1 applic TP HS [facility] Docusate Sodium (Colace -) 100 mg PO DAILY [facility] Last Admin: 10/27/16 09:21 Dose: 100 mg Furosemide (Lasix -) 40 mg PO DAILY [facility] Last Admin: 10/27/16 09:21 Dose: 40 mg Heparin Sodium (Porcine) (Heparin -) 5,000 unit SQ TID [facility] Losartan Potassium (Cozaar -) 25 mg PO DAILY [facility] Last Admin: 10/27/16 09:22 Dose: 25 mg Methylprednisolone Sodium Succinate (Solu-Medrol -) 40 mg IVPB BID [facility] Last Admin: 10/27/16 09:23 Dose: 40 mg Metoprolol Tartrate (Lopressor -) 25 mg PO BID [facility] Last Admin: 10/27/16 09:22 Dose: 25 mg Mupirocin (Bactroban Ointment (For Decolonization) -) 1 applic NS BID [facility] Stop: 10/27/16 21:59 Last Admin: 10/27/16 09:24 Dose: 1 inch Nystatin (Nystop Powder -) 1 applic TP DAILY [facility] Last Admin: 10/27/16 09:25 Dose: 1 applic Pantoprazole Sodium (Protonix -) 40 mg PO BID [facility] Last Admin: 10/27/16 09:21 Dose: 40 mg Polyethylene Glycol (Miralax (For Daily Use) -) 17 gm PO BID [facility] Last Admin: 10/27/16 09:22 Dose: 17 gm - Objective Vital Signs: Vital Signs Temperature 97.8 F 10/27/16 10:00 Pulse Rate 80 10/27/16 12:00 Respiratory Rate 18 10/27/16 12:00 Blood Pressure 121/46 10/27/16 12:00 O2 Sat by Pulse Oximetry (%) 98 10/27/16 10:35 Constitutional: Yes: No Distress, Calm Neck: Yes: Supple Cardiovascular: Yes: Pulse Irregular Respiratory: Yes: Regular, Diminished, On Nasal O2, Rhonchi Gastrointestinal: Yes: Normal Bowel Sounds, Soft, Abdomen, Obese Edema: Yes Edema: LLE: Trace, RLE: Trace Labs: CBC, BMP 10/27/16 05:15 10/27/16 05:15 INR, PTT INR 1.71 (0.82-1.09) H D 10/25/16 05:15 Problem List - Problems (1) Aspiration into respiratory tract Code(s): T17.908A - UNSP FB IN RESP TRACT, PART UNSP CAUSING OTH INJURY, INIT Qualifiers: Encounter type: initial encounter Qualified Code(s): T17.908A - Unspecified foreign body in respiratory tract, part unspecified causing other injury, initial encounter (2) CO2 narcosis Code(s): R06.89 - OTHER ABNORMALITIES OF BREATHING (3) COPD (chronic obstructive pulmonary disease) Code(s): J44.9 - CHRONIC OBSTRUCTIVE PULMONARY DISEASE, UNSPECIFIED Qualifiers : COPD type: unspecified COPD Qualified Code(s): J44.9 - Chronic obstructive pulmonary disease, unspecified (4) Severe anemia Code(s): D64.9 - ANEMIA, UNSPECIFIED (5) Shortness of breath Code(s): R06.02 - SHORTNESS OF BREATH (6) Systolic and diastolic CHF, acute on chronic Code(s): I50.43 - ACUTE ON CHRONIC COMBINED SYSTOLIC AND DIASTOLIC HRT FAIL (7) Atrial fibrillation Code(s): I48.91 - UNSPECIFIED ATRIAL FIBRILLATION Qualifiers: Atrial fibrillation type: persistent Qualified Code(s): I48.1 - Persistent atrial fibrillation (8) CAD (coronary artery disease) Code(s): I25.10 - ATHSCL HEART DISEASE OF [place] CORONARY ARTERY W/O ANG PCTRS Qualifiers: Coronary Disease-Associated Artery/Lesion type: [place] artery [place] vs. transplanted heart: [place] heart Associated angina: without angina Qualified Code(s): I25.10 - Atherosclerotic heart disease of [place] coronary artery without angina pectoris (9) H/O atrial septal defect repair Code(s): Z98.89 - OTHER SPECIFIED POSTPROCEDURAL STATES * DO NOT USE * Z87.74 - PERSONAL HISTORY OF CONGENITAL MALFORM OF HEART AND CIRC SYS (10) Hypercholesterolemia Code(s): E78.0 - PURE HYPERCHOLESTEROLEMIA * DO NOT USE * (11) Hypertension Code(s): I10 - ESSENTIAL (PRIMARY) HYPERTENSION Qualifiers: Hypertension type: essential hypertension Qualified Code(s): I10 - Essential (primary) hypertension (12) Right bundle branch block Code(s): I45.10 - UNSPECIFIED RIGHT BUNDLE-BRANCH BLOCK Assessment/Plan 10/28/2015 Echo: Normal LV size and fxn, mod decreased RV fxn, severe LAE, mild- mod CHRISTIAN, mild MR, mild-mod TR, RVSP 50-60 mmHg, mod AR, ID 1. s/p acute hypercapneic respiratory failure acute exacerbation of COPD, underlying anemia 2. Resolved recurrent lower GI bleed etiology suspect internal hemorrhoidal, prior history of diverticular bleed post resection of a large rectal polyp 3. Chronic diastolic heart failure with moderate to severe degree of pulmonary HTN 4. 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 Persistent atrial fibrillation post Cryo-Maze and NATE ligation, [id number] off of A/C 6. HTN 7. Hypercholesterolemia 8. ASD post surgical repair 9. Reactive airway disease/COPD 10. Pancytopenia post transfusion, possible hemolysis vs bone marrow suppression , r/o myeloproliferative disorder 11. CKD PLAN: 1. Transfuse to maintain Hg equal or > 8.0 2. As outlined recommend withholding Coumadin therapy at this point indefinitely recognizing elevated stroke risk ([id number] score of 5) and h/o NATE ligation considering the above noted presentation, pending resolution 3. Monitor off antibiotics as per the primary team 4. Continue Lasix 40 qd with close monitoring of renal function and electrolytes 5. Continue Lopressor 25 bid, hemodynamics permitting 6. Continue Cozaar 25 qd, hemodynamic permitting 7. Empiric steroids with GI protection, BD, f/u flow cytometry, possible bone marrow biopsy
--- NOTE | 2016-10-27 16:58 | PN ---
Progress Note (short form) - Note Progress Note: asked to f/u by Dr Lebron for + Mycoplasma serology 10/20 he is asymptomatic, no evident of hemolysis now + warm and cold antibody cold agglutinin negative oob in chair alert Vital Signs Period Temp Pulse Resp BP Sys/Brian Pulse Ox Last 24 Hr 97.4 F-98 F 78-99 17-20 111-135/44-76 96-98 ecchymoses no thrush cor-rrr lungs clear abd soft,nt ext trace edema CBC, BMP 10/27/16 05:15 10/27/16 05:15 a/p evidence recent mycoplasma infection- currently asymptomatic no need to treat
[2016-10-27] MEDS: HEPARIN NA (PORCINE) 5,000 UNITS/ML 1ML VIAL SQ SCH ×2 (17:17→21:22)
[2016-10-27] MEDS: CHLORHEXIDINE GLUCONATE 4% CLEANSER FOR DECOLONIZATION TP SCH (21:22)
--- NOTE | 2016-10-27 21:38 | PN ---
Progress Note (short form) - Note Progress Note: patient seen and examined feels better Last Vital Signs Temp Pulse Resp BP Pulse Ox 97 F L 92 H 19 123/62 100 10/27/16 18:00 10/27/16 22:00 10/27/16 22:00 10/27/16 22:00 10/27/16 20:24 Cor: RSR, No murmurs, No gallops Lungs: Clear to P&A Abd: Soft, Normal bowel sounds, No organomegaly Ext:stasis dermatitis Abnormal Lab Results 10/26/16 10/27/16 10/27/16 05:50 05:15 05:15 WBC 3.0 L RBC 2.58 L Hgb 8.7 L Hct 25.7 L MCV 99.6 H RDW 20.0 H Plt Count 132 L MPV 7.2 L Neutrophils % 87.5 H Lymphocytes % 4.1 L D Chloride 96 L Carbon Dioxide 33 H Anion Gap 7 L BUN 35 H Random Glucose 159 H D Calcium 8.3 L IgM 2582 H Home Medication List Medication Instructions Recorded Confirmed Type Losartan Potassium [Cozaar] 25 mg PO DAILY 10/18/16 10/22/16 History Metoprolol Succinate [Toprol Xl] 50 mg PO DAILY 10/18/16 10/22/16 History Warfarin Sodium [Coumadin] 2.5 mg PO DAILY 10/18/16 10/22/16 History Active Medications Generic Name Dose Route Start Last Admin Trade Name Freq PRN Reason Stop Dose Admin Albuterol Sulfate 1 amp 10/27/16 08:31 Ventolin 0.083% Nebulizer Soln - NEB Q4H PRN SHORT OF BREATH/WHEEZING Albuterol/Ipratropium 1 amp 10/27/16 12:00 10/27/16 18:10 Duoneb - NEB 1 amp QIDR RUBIA Administration Chlorhexidine Gluconate 1 applic 10/27/16 22:00 10/27/16 21:22 Hibiclens For Decolonization - TP 1 applic HS RUBIA Administration Docusate Sodium 100 mg 10/27/16 10:00 10/27/16 09:21 Colace - PO 100 mg DAILY RUBIA Administration Furosemide 40 mg 10/27/16 10:00 10/27/16 09:21 Lasix - PO 40 mg DAILY RUBIA Administration Heparin Sodium (Porcine) 5,000 unit 10/27/16 14:00 10/27/16 21:22 Heparin - SQ 5,000 unit TID RUBIA Administration Losartan Potassium 25 mg 10/27/16 10:00 10/27/16 09:22 Cozaar - PO 25 mg DAILY RUBIA Administration Methylprednisolone Sodium Succinate 40 mg 10/27/16 10:00 10/27/16 21:22 Solu-Medrol - IVPB 40 mg BID RUBIA Administration Metoprolol Tartrate 25 mg 10/27/16 10:00 10/27/16 21:22 Lopressor - PO 25 mg BID RUBIA Administration Nystatin 1 applic 10/27/16 10:00 10/27/16 09:25 Nystop Powder - TP 1 applic DAILY RUBIA Administration Pantoprazole Sodium 40 mg 10/27/16 10:00 10/27/16 21:22 Protonix - PO 40 mg BID RUBIA Administration Polyethylene Glycol 17 gm 10/27/16 10:00 10/27/16 09:22 Miralax (For Daily Use) - PO 17 gm BID RUBIA Administration A/P 86 y/o patient with anemia, + benson agglutinin + cold agglutinin nl LDH/haptoglobin ? extravascular hemolysis will check u/s abdomen _+ mycoplasma titers--d/o recent mycoplasma inf.--discussed with ID B12/TSH--nl folate/flow --pending _ IgM monoclonal protein : check SFLCA. Quant. Immunoglobulins On steroids--solumedrol 80mg IVPB daily--change to 40g ivpb bid discussed with patient --low grade autoimmune process trigerred by mycoplasma inf. improved on steroids stool occult +/ coumadin on hold U/S--fatty liver/splenomegaly patient reluctant to get invasive w/u like bonemarrow bx. await peripheral blood studies will discuss with Dr. Pennington
[2016-10-28] MEDS: POLYETHYLENE GLYCOL 3350 119 GM BTL PO SCH ×3 (01:00→22:16)
[2016-10-28] MEDS: HEPARIN NA (PORCINE) 5,000 UNITS/ML 1ML VIAL SQ SCH ×3 (06:00→22:15)
[2016-10-28 06:06] LABS: HEMATOCRIT 26.9 % (37.5-51.0)
[2016-10-28] MEDS: ALBUTEROL SO4 2.5/IPRATROPIUM 0.5 INH SOL 3 ML VIAL.NEB. NEB SCH ×4 (07:00→23:47)
[2016-10-28 08:28] LABS: MCH 33.1 pg (25.7-33.7); MCHC 32.8 g/dl (32.0-35.9); MEAN CELL VOLUME 100.9 fl (80-96); MEAN PLT VOLUME 7.2 fl (7.5-11.1); PLATELET COUNT 139 K/MM3 (134-434); RDW 20.8 % (11.9-15.9); WHITE BLOOD COUNT 4.1 K/mm3 (4.0-10.0)
[2016-10-28 08:36] LABS: CALCIUM 8.5 mg/dL (8.5-10.1); COCKROFT - GAULT 62.22; CREATININE 1.1 mg/dL (0.7-1.3)
[2016-10-28] MEDS ORDERED: PT OWN MED DRAWER 7, Y5N ONE (10:01)
[2016-10-28] MEDS: FUROSEMIDE 40 MG TABLET (FP) PO SCH (10:03)
[2016-10-28] MEDS: PANTOPRAZOLE 40 MG TABLET (FP) PO SCH ×2 (10:03→22:16)
[2016-10-28] MEDS: LOSARTAN POTASSIUM 25 MG TABLET PO SCH (10:03)
[2016-10-28] MEDS: methylPREDNISolone NA SUCC 40 MG/1 ML VIAL IVPB SCH ×2 (10:03→22:17)
[2016-10-28] MEDS: DOCUSATE SODIUM 100 MG CAPSULE (FP) PO SCH (10:03)
[2016-10-28] MEDS: METOPROLOL TARTRATE 25 MG TABLET (FP) PO SCH ×2 (10:03→22:17)
[2016-10-28] MEDS: NYSTATIN POWDER 100,000 UNITS/GM - 15 GM TOPICAL POWDER TP SCH (10:04)
--- NOTE | 2016-10-28 10:32 | PN ---
Progress Note, Physician History of Present Illness: Comfortable OOB to chair. 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 - Current Medication List Current Medications: Active Medications Albuterol Sulfate (Ventolin 0.083% Nebulizer Soln -) 1 amp NEB Q4H PRN PRN Reason: SHORT OF BREATH/WHEEZING Albuterol/Ipratropium (Duoneb -) 1 amp NEB QIDR [facility] Last Admin: 10/28/16 07:00 Dose: 1 amp Chlorhexidine Gluconate (Hibiclens For Decolonization -) 1 applic TP HS [facility] Last Admin: 10/27/16 21:22 Dose: 1 applic Docusate Sodium (Colace -) 100 mg PO DAILY [facility] Last Admin: 10/28/16 10:03 Dose: 100 mg Furosemide (Lasix -) 40 mg PO DAILY [facility] Last Admin: 10/28/16 10:03 Dose: 40 mg Heparin Sodium (Porcine) (Heparin -) 5,000 unit SQ TID [facility] Last Admin: 10/28/16 06:00 Dose: 5,000 unit Losartan Potassium (Cozaar -) 25 mg PO DAILY [facility] Last Admin: 10/28/16 10:03 Dose: 25 mg Methylprednisolone Sodium Succinate (Solu-Medrol -) 40 mg IVPB BID [facility] Last Admin: 10/28/16 10:03 Dose: 40 mg Metoprolol Tartrate (Lopressor -) 25 mg PO BID [facility] Last Admin: 10/28/16 10:03 Dose: 25 mg Nystatin (Nystop Powder -) 1 applic TP DAILY [facility] Last Admin: 10/28/16 10:04 Dose: 1 applic Pantoprazole Sodium (Protonix -) 40 mg PO BID [facility] Last Admin: 10/28/16 10:03 Dose: 40 mg Polyethylene Glycol (Miralax (For Daily Use) -) 17 gm PO BID [facility] Last Admin: 10/28/16 01:00 Dose: Not Given - Objective Vital Signs: Vital Signs Temperature 96.8 F L 10/28/16 05:55 Pulse Rate 91 H 10/28/16 05:55 Respiratory Rate 21 10/28/16 05:55 Blood Pressure 111/54 10/28/16 05:55 O2 Sat by Pulse Oximetry (%) 100 10/27/16 20:24 Constitutional: Yes: No Distress, Calm Neck: Yes: Supple Cardiovascular: Yes: Regular Rate and Rhythm Respiratory: Yes: Regular, Diminished, On Nasal O2 Gastrointestinal: Yes: Normal Bowel Sounds, Soft, Abdomen, Obese Edema: Yes Edema: LLE: 1+, RLE: 1+ Labs: CBC, BMP 10/28/16 05:58 10/28/16 05:58 INR, PTT INR 1.71 (0.82-1.09) H D 10/25/16 05:15 Problem List - Problems (1) Aspiration into respiratory tract Code(s): T17.908A - UNSP FB IN RESP TRACT, PART UNSP CAUSING OTH INJURY, INIT Qualifiers: Encounter type: initial encounter Qualified Code(s): T17.908A - Unspecified foreign body in respiratory tract, part unspecified causing other injury, initial encounter (2) CO2 narcosis Code(s): R06.89 - OTHER ABNORMALITIES OF BREATHING (3) COPD (chronic obstructive pulmonary disease) Code(s): J44.9 - CHRONIC OBSTRUCTIVE PULMONARY DISEASE, UNSPECIFIED Qualifiers : COPD type: unspecified COPD Qualified Code(s): J44.9 - Chronic obstructive pulmonary disease, unspecified (4) Severe anemia Code(s): D64.9 - ANEMIA, UNSPECIFIED (5) Shortness of breath Code(s): R06.02 - SHORTNESS OF BREATH (6) Systolic and diastolic CHF, acute on chronic Code(s): I50.43 - ACUTE ON CHRONIC COMBINED SYSTOLIC AND DIASTOLIC HRT FAIL (7) Atrial fibrillation Code(s): I48.91 - UNSPECIFIED ATRIAL FIBRILLATION Qualifiers: Atrial fibrillation type: persistent Qualified Code(s): I48.1 - Persistent atrial fibrillation (8) CAD (coronary artery disease) Code(s): I25.10 - ATHSCL HEART DISEASE OF [place] CORONARY ARTERY W/O ANG PCTRS Qualifiers: Coronary Disease-Associated Artery/Lesion type: [place] artery [place] vs. transplanted heart: [place] heart Associated angina: without angina Qualified Code(s): I25.10 - Atherosclerotic heart disease of [place] coronary artery without angina pectoris (9) H/O atrial septal defect repair Code(s): Z98.89 - OTHER SPECIFIED POSTPROCEDURAL STATES * DO NOT USE * Z87.74 - PERSONAL HISTORY OF CONGENITAL MALFORM OF HEART AND CIRC SYS (10) Hypercholesterolemia Code(s): E78.0 - PURE HYPERCHOLESTEROLEMIA * DO NOT USE * (11) Hypertension Code(s): I10 - ESSENTIAL (PRIMARY) HYPERTENSION Qualifiers: Hypertension type: essential hypertension Qualified Code(s): I10 - Essential (primary) hypertension (12) Right bundle branch block Code(s): I45.10 - UNSPECIFIED RIGHT BUNDLE-BRANCH BLOCK Assessment/Plan 10/28/2015 Echo: Normal LV size and fxn, mod decreased RV fxn, severe LAE, mild- mod CHRISTIAN, mild MR, mild-mod TR, RVSP 50-60 mmHg, mod AR, MD 1. s/p acute hypercapneic respiratory failure acute exacerbation of COPD, underlying anemia 2. Resolved recurrent lower GI bleed etiology suspect internal hemorrhoidal, prior history of diverticular bleed post resection of a large rectal polyp 3. Chronic diastolic heart failure with moderate to severe degree of pulmonary HTN 4. 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 Persistent atrial fibrillation post Cryo-Maze and NATE ligation, [id number] off of A/C 6. HTN 7. Hypercholesterolemia 8. ASD post surgical repair 9. Reactive airway disease/COPD 10. Pancytopenia post transfusion, possible extravascular hemolysis vs bone marrow suppression, r/o myeloproliferative disorder 11. CKD PLAN: 1. Transfuse to maintain Hg equal or > 8.0 2. As outlined recommend withholding Coumadin therapy at this point indefinitely recognizing elevated stroke risk ([id number] score of 5) and h/o NATE ligation considering the above noted presentation, pending resolution 3. Monitor off antibiotics as per the primary team (+ Mycoplasma titer) 4. Continue Lasix 40 qd with close monitoring of renal function and electrolytes 5. Continue Lopressor 25 bid, hemodynamics permitting 6. Continue Cozaar 25 qd, hemodynamic permitting 7. Empiric steroid taper with GI protection per heme, BD, f/u flow cytometry, hesitant for bone marrow biopsy
--- NOTE | 2016-10-28 11:13 | PN ---
Progress Note, Physician History of Present Illness: pulmonary alert,oob-chair,comfortable ,-resp distress - Current Medication List Current Medications: Active Medications Albuterol Sulfate (Ventolin 0.083% Nebulizer Soln -) 1 amp NEB Q4H PRN PRN Reason: SHORT OF BREATH/WHEEZING Albuterol/Ipratropium (Duoneb -) 1 amp NEB QIDR [facility] Last Admin: 10/28/16 07:00 Dose: 1 amp Chlorhexidine Gluconate (Hibiclens For Decolonization -) 1 applic TP HS [facility] Last Admin: 10/27/16 21:22 Dose: 1 applic Docusate Sodium (Colace -) 100 mg PO DAILY [facility] Last Admin: 10/28/16 10:03 Dose: 100 mg Furosemide (Lasix -) 40 mg PO DAILY [facility] Last Admin: 10/28/16 10:03 Dose: 40 mg Heparin Sodium (Porcine) (Heparin -) 5,000 unit SQ TID [facility] Last Admin: 10/28/16 06:00 Dose: 5,000 unit Losartan Potassium (Cozaar -) 25 mg PO DAILY [facility] Last Admin: 10/28/16 10:03 Dose: 25 mg Methylprednisolone Sodium Succinate (Solu-Medrol -) 40 mg IVPB BID [facility] Last Admin: 10/28/16 10:03 Dose: 40 mg Metoprolol Tartrate (Lopressor -) 25 mg PO BID [facility] Last Admin: 10/28/16 10:03 Dose: 25 mg Nystatin (Nystop Powder -) 1 applic TP DAILY [facility] Last Admin: 10/28/16 10:04 Dose: 1 applic Pantoprazole Sodium (Protonix -) 40 mg PO BID [facility] Last Admin: 10/28/16 10:03 Dose: 40 mg Polyethylene Glycol (Miralax (For Daily Use) -) 17 gm PO BID [facility] Last Admin: 10/28/16 10:40 Dose: Not Given - Objective Vital Signs: Vital Signs Temperature 97.6 F 10/28/16 10:00 Pulse Rate 63 10/28/16 10:00 Respiratory Rate 89 H 10/28/16 10:00 Blood Pressure 133/62 10/28/16 10:00 O2 Sat by Pulse Oximetry (%) 100 10/28/16 09:00 Constitutional: Yes: Well Nourished, Calm Eyes: Yes: WNL HENT: Yes: WNL Neck: Yes: WNL Cardiovascular: Yes: Regular Rate and Rhythm, S1, S2 Respiratory: Yes: Diminished Gastrointestinal: Yes: Normal Bowel Sounds, Soft Extremities: Yes: WNL Edema: Yes Labs: CBC, BMP 10/28/16 05:58 10/28/16 05:58 INR, PTT INR 1.71 (0.82-1.09) H D 10/25/16 05:15 Problem List - Problems (1) Aspiration into respiratory tract Code(s): T17.908A - UNSP FB IN RESP TRACT, PART UNSP CAUSING OTH INJURY, INIT Qualifiers: Encounter type: initial encounter Qualified Code(s): T17.908A - Unspecified foreign body in respiratory tract, part unspecified causing other injury, initial encounter (2) CO2 narcosis Code(s): R06.89 - OTHER ABNORMALITIES OF BREATHING (3) COPD (chronic obstructive pulmonary disease) Code(s): J44.9 - CHRONIC OBSTRUCTIVE PULMONARY DISEASE, UNSPECIFIED Qualifiers : COPD type: unspecified COPD Qualified Code(s): J44.9 - Chronic obstructive pulmonary disease, unspecified (4) Anemia Code(s): D64.9 - ANEMIA, UNSPECIFIED Qualifiers: Anemia type: iron deficiency (5) GI bleed Code(s): K92.2 - GASTROINTESTINAL HEMORRHAGE, UNSPECIFIED Qualifiers: GI bleed type/associated pathology: diverticulosis Qualified Code(s) : K57.91 - Diverticulosis of intestine, part unspecified, without perforation or abscess with bleeding (6) Severe anemia Code(s): D64.9 - ANEMIA, UNSPECIFIED (7) Shortness of breath Code(s): R06.02 - SHORTNESS OF BREATH (8) Systolic and diastolic CHF, acute on chronic Code(s): I50.43 - ACUTE ON CHRONIC COMBINED SYSTOLIC AND DIASTOLIC HRT FAIL (9) Atrial fibrillation Code(s): I48.91 - UNSPECIFIED ATRIAL FIBRILLATION Qualifiers: Atrial fibrillation type: persistent Qualified Code(s): I48.1 - Persistent atrial fibrillation (10) CAD (coronary artery disease) Code(s): I25.10 - ATHSCL HEART DISEASE OF [place] CORONARY ARTERY W/O ANG PCTRS Qualifiers: Coronary Disease-Associated Artery/Lesion type: [place] artery [place] vs. transplanted heart: [place] heart Associated angina: without angina Qualified Code(s): I25.10 - Atherosclerotic heart disease of [place] coronary artery without angina pectoris (11) Hypercholesterolemia Code(s): E78.0 - PURE HYPERCHOLESTEROLEMIA * DO NOT USE * (12) Hypertension Code(s): I10 - ESSENTIAL (PRIMARY) HYPERTENSION Qualifiers: Hypertension type: essential hypertension Qualified Code(s): I10 - Essential (primary) hypertension Assessment/Plan ASSESSMENT AND PLAN: s/p Acute Hypercapneic Respiratory Failure Acute COPD Exacerbation LV Diastolic Dysfunction Pulmonary HTN CAD Atrial Fibrillation HTN CKD ASD s/p repair r/o myeloproliferative disorder - medrol - inhaled bronchodilators - monitor CBC - transfuse as needed - f/u flow cytometry - may need BMBx - lasix - PO as tolerated - DVT/GI prophylaxis DR ANAND
--- NOTE | 2016-10-28 11:53 | PATH ---
Surgical Pathology Report Patient Name: [facility]. Rec. #: [id number] /Age/Gender: 1930 (Age: 86) / M Account: [id number] Location: 4 W TELEMETRY U Taken: 10/26/2016 Received: 10/26/2016 Reported: 10/28/2016 Physicians: Vi Hirsch M.D. Specimen(s) Received PERIPHERAL BLOOD 2 GREEN TOPS Clinical History Pancytopenia, M-spike, warm auto Abs, r/o MDS/LPD Final Diagnosis FLOW CYTOMETRY PERFORMED AND INTERPRETED AT [place], [place] ([id number]) SHOWED THE FOLLOWING: INTERPRETATION: Small (1.5% of total) clonal B-cell population with non-specific immunophenotype detected (see comment). The monocytic cells are 12% of total. There is no evidence of T-cell proliferative disorders or increased blasts. Comment: Correlation with pertinent clinical, imaging and laboratory data is needed for complete diagnostic interpretation. Phenotype: In the sample analyzed, there is a mixed population of granulocytes, monocytes and lymphoid cells. CD34+ myeloblasts are < 0.1%. Granulocytes are 80% of total cells. Monocytes are 12% of total cells. There is no overt abnormal myeloid antigen expression. The T-cells (5% of total) show no benson T-cell antigenic deletion. A small (1.5% of total) clonal (lambda, moderate) B-cell population with dim CD19 and CD20 expression, negative for CD5, CD10 and bright CD11c is noted. HEMATOLOGIC FISH STUDIES PERFORMED AND INTERPRETED AT [place], [place] ([id number]) ARE FOLLOWS: INTERPRETATION: No evidence of deletion 5q or monosomy 5 is present. No evidence of deletion 7q or monosomy 7 is present. No evidence of trisomy 8(+8) is present. No evidence of deletion 13q14 is present. No evidence of a rearrangement of 11q23. No evidence of a deletion of the p53 (17p13) locus. No evidence of deletion 20q12 is present. Comments: The study is negative for many of the most common recurrent genetic abnormalities in Myelodysplastic Syndrome. Correlation with pending cytogenetics ([id number]) is recommended. Electronically Signed Abraham Yan M.D. Addendum Reported: 11/03/2016 Addendum Diagnosis Cytogenetics Karyotype Analysis performed and interpreted at [facility], [place], [place] ([id number]) shows the following: TEST RESULTS: Culture Failure. DIAGNOSTIC INTERPRETATION: This unstimulated peripheral blood specimen did not produce any mitotic cells and, therefore, chromosome analysis is not possible. A bone marrow aspirate, when clinically appropriate, is recommended. Abraham Yan M.D. Gross Description Received are 2 green top tubes of peripheral blood which are sent to [facility]. /10/26/2016 saudi10/26/2016
--- NOTE | 2016-10-28 17:58 | PN ---
Physical Exam: SUBJECTIVE: Patient seen and examined. He denies any chest pain or shortness of breath. OBJECTIVE: Patient seen earlier today but was having lunch. He is sitting in the chair in no acute distress Vital Signs Period Temp Pulse Resp BP Sys/Brian Pulse Ox Last 24 Hr 96.8 F-98.7 F 63-96 18-89 104-133/51-65 95-100 GENERAL: The patient is awake, alert, and fully oriented, in no acute distress. HEAD: Normal with no signs of trauma. EYES: PERRL, extraocular movements intact, sclera anicteric, conjunctiva clear. No ptosis. ENT: Ears normal, nares patent, oropharynx clear without exudates, moist mucous membranes. NECK: Trachea midline, full range of motion, supple. LUNGS: Breath sounds equal, clear/diminished to auscultation bilaterally, no wheezes, no crackles, no accessory muscle use. ABDOMEN: Soft, nontender, nondistended, normoactive bowel sounds, no guarding, no rebound, no hepatosplenomegaly, no masses. EXTREMITIES: Bilateral lower extremities with non pitting edema NEUROLOGICAL: Normal speech, gait not observed. PSYCH: Normal mood, normal affect. SKIN: Warm, dry, normal turgor, no rashes or lesions noted Laboratory Results - last 24 hr 10/26/16 10/26/16 10/26/16 05:50 05:50 05:50 WBC RBC Hgb Hct 26.9 L MCV MCHC RDW Plt Count MPV Sodium Potassium Chloride Carbon Dioxide Anion Gap BUN Creatinine POC Glucometer Random Glucose Calcium Folate 1616 Folate Hemolysate 434.8 Cold Agglutinins Negative Free [place] LC, Quant 36.68 H Free Lambda LC, Quant 1204.41 H Free [place]/Lambda Ratio 0.03 L 10/27/16 10/27/16 10/28/16 11:47 17:16 05:58 WBC 4.1 D RBC 2.59 L Hgb 8.6 L Hct 26.2 L MCV 100.9 H MCHC 32.8 RDW 20.8 H Plt Count 139 MPV 7.2 L Sodium Potassium Chloride Carbon Dioxide Anion Gap BUN Creatinine POC Glucometer [phone] Random Glucose Calcium Folate Folate Hemolysate Cold Agglutinins Free [place] LC, Quant Free [place]ambda LC, Quant Free [place]/Lambda Ratio 10/28/16 05:58 WBC RBC Hgb Hct MCV MCHC RDW Plt Count MPV Sodium 136 Potassium 5.1 Chloride 96 L Carbon Dioxide 34 H Anion Gap 6 L BUN 34 H Creatinine 1.1 POC Glucometer Random Glucose 118 H D Calcium 8.5 Folate Folate Hemolysate Cold Agglutinins Free [place] LC, Quant Free [place]ambda LC, Quant Free [place]/Lambda Ratio Active Medications Generic Name Dose Route Start Last Admin Trade Name Freq PRN Reason Stop Dose Admin Albuterol Sulfate 1 amp 10/27/16 08:31 Ventolin 0.083% Nebulizer Soln - NEB Q4H PRN SHORT OF BREATH/WHEEZING Albuterol/Ipratropium 1 amp 10/27/16 12:00 10/28/16 11:15 Duoneb - NEB 1 amp QIDR [facility] Administration Chlorhexidine Gluconate 1 applic 10/27/16 22:00 10/27/16 21:22 Hibiclens For Decolonization - TP 1 applic HS [facility] Administration Docusate Sodium 100 mg 10/27/16 10:00 10/28/16 10:03 Colace - PO 100 mg DAILY [facility] Administration Furosemide 40 mg 10/27/16 10:00 10/28/16 10:03 Lasix - PO 40 mg DAILY [facility] Administration Heparin Sodium (Porcine) 5,000 unit 10/27/16 14:00 10/28/16 14:57 Heparin - SQ 5,000 unit TID [facility] Administration Losartan Potassium 25 mg 10/27/16 10:00 10/28/16 10:03 Cozaar - PO 25 mg DAILY [facility] Administration Methylprednisolone Sodium Succinate 40 mg 10/27/16 10:00 10/28/16 10:03 Solu-Medrol - IVPB 40 mg BID [facility] Administration Metoprolol Tartrate 25 mg 10/27/16 10:00 10/28/16 10:03 Lopressor - PO 25 mg BID [facility] Administration Nystatin 1 applic 10/27/16 10:00 10/28/16 10:04 Nystop Powder - TP 1 applic DAILY [facility] Administration Pantoprazole Sodium 40 mg 10/27/16 10:00 10/28/16 10:03 Protonix - PO 40 mg BID [facility] Administration Polyethylene Glycol 17 gm 10/27/16 10:00 10/28/16 10:40 Miralax (For Daily Use) - PO Not Given BID [facility] ASSESSMENT/PLAN: Patient is an 86 year old male with a signficant past medical history of asthma , anemia, congestive heart failure, atrial fibrillation (on Coumadin), CAD, COPD , pulmonary hypertension and GI bleed. He presented to the ED on 10/22/2016 with COPD and carbon dioxide narcosis. Pulmonary: COPD: Acute hypercapnic and hypoxic respiratory failure - improving Assessment/Plan: S/P ICU intubation, now tolerating oxygen @ 2 liter nasal cannula, @96% Breathing is improving, patient denies shortness of breath on exam On Solumedrol 40mg BID, Albuterol QID scheduled Monitor respiratory status Pulmonary hypertension Assessment/Plan: On Lasix 40mg daily Cardiology: Atrial Fibrillation Assessment/Plan: On home Coumadin, which is currently on hold as per hematology/ cardiology Rate control with Lopressor 25mg PO BID Monitor on tele SCDs when in bed Congestive heart failure Assessment/Plan: On Lasix 40mg daily On metoprolol 25mg PO BID supplemental oxygen Hematology: Anemia - likely chronic Assessment/Plan: hmg/hct low stable CBC in a.m. Hematology following for Hemolysis vs. bone marrow suppression Assessment/Plan: Heme following for likely hematologic disorder and neutropenia On steriods, monitor GI: GI bleed - with no overt signs of bleeding Assessment/Plan: Stool occult positive Monitor hmg/hct On Protonix 40mg BID No GI discomfort F.E.N. Fluids: tolerating PO Electrolytes: monitor with BMP Nutrition: low sodium, regular diet Prophylaxis: DVT: SCDs, Heparin TID while Coumadin is on hold GI: Protonix 40mg BID Disposition: Requires inpatient hospitalization. Full code. Visit type - Emergency Visit Emergency Visit: Yes ED Registration Date: 10/22/16 Care time: The patient presented to the Emergency Department on the above date and was hospitalized for further evaluation of their emergent condition. - New Patient This patient is new to me today: Yes Date on this admission: 10/29/16 - Critical Care Critical Care patient: No - Discharge Referral Referred to [facility] No
--- NOTE | 2016-10-28 20:43 | PN ---
Progress Note (short form) - Note Progress Note: patient seen and examined feels better Last Vital Signs Temp Pulse Resp BP Pulse Ox 98 F 74 20 122/55 95 10/28/16 14:46 10/28/16 14:46 10/28/16 14:46 10/28/16 14:46 10/28/16 11:10 Cor: RSR, No murmurs, No gallops Lungs: Clear to P&A Abd: Soft, Normal bowel sounds, No organomegaly Ext:stasis dermatitis Abnormal Lab Results 10/26/16 10/26/16 10/28/16 05:50 05:50 05:58 RBC 2.59 L Hgb 8.6 L Hct 26.9 L 26.2 L MCV 100.9 H RDW 20.8 H MPV 7.2 L Chloride Carbon Dioxide Anion Gap BUN Random Glucose Free [place] LC, Quant 36.68 H Free [place] LC, Quant 1204.41 H Free [place]/Lambda Ratio 0.03 L 10/28/16 05:58 RBC Hgb Hct MCV RDW MPV Chloride 96 L Carbon Dioxide 34 H Anion Gap 6 L BUN 34 H Random Glucose 118 H D Free [place] LC, Quant Free [place] LC, Quant Free [place]/Lambda Ratio Current Medications Generic Name Dose Route Start Last Admin Trade Name Freq PRN Reason Stop Dose Admin Albuterol Sulfate 1 amp 10/27/16 08:31 Ventolin 0.083% Nebulizer Soln - NEB Q4H PRN SHORT OF BREATH/WHEEZING Albuterol/Ipratropium 1 amp 10/27/16 12:00 10/28/16 18:00 Duoneb - NEB 1 amp QIDR [facility] Administration Chlorhexidine Gluconate 1 applic 10/27/16 22:00 10/27/16 21:22 Hibiclens For Decolonization - TP 1 applic HS [facility] Administration Docusate Sodium 100 mg 10/27/16 10:00 10/28/16 10:03 Colace - PO 100 mg DAILY [facility] Administration Furosemide 40 mg 10/27/16 10:00 10/28/16 10:03 Lasix - PO 40 mg DAILY [facility] Administration Heparin Sodium (Porcine) 5,000 unit 10/27/16 14:00 10/28/16 14:57 Heparin - SQ 5,000 unit TID [facility] Administration Losartan Potassium 25 mg 10/27/16 10:00 10/28/16 10:03 Cozaar - PO 25 mg DAILY [facility] Administration Methylprednisolone Sodium Succinate 40 mg 10/27/16 10:00 10/28/16 10:03 Solu-Medrol - IVPB 40 mg BID [facility] Administration Metoprolol Tartrate 25 mg 10/27/16 10:00 10/28/16 10:03 Lopressor - PO 25 mg BID [facility] Administration Nystatin 1 applic 10/27/16 10:00 10/28/16 10:04 Nystop Powder - TP 1 applic DAILY [facility] Administration Pantoprazole Sodium 40 mg 10/27/16 10:00 10/28/16 10:03 Protonix - PO 40 mg BID [facility] Administration Polyethylene Glycol 17 gm 10/27/16 10:00 10/28/16 10:40 Miralax (For Daily Use) - PO Not Given BID [facility] A/P 86 y/o patient with anemia, + benson agglutinin + cold agglutinin nl LDH/haptoglobin ? extravascular hemolysis will check u/s abdomen _+ mycoplasma titers--s/o recent mycoplasma inf.--discussed with ID B12/TSH--nl folate/flow --pending _ IgM monoclonal protein : SFLCA --Lambda light chains--1000s On steroids--solumedrol 80mg IVPB daily--change to 40g ivpb bid discussed with patient --low grade autoimmune process trigerred by mycoplasma inf. stable on steroids stool occult +/ coumadin on hold U/S--fatty liver/splenomegaly Flow shows --? monoclonal B cell population. Lambda light chains elevated in 1000s, ratio 0.03 discussed bone marrow evaluation wtih patient to r/o MGUS/myeloma versus lymphoproliferative process patient to decide
[2016-10-28] MEDS: CHLORHEXIDINE GLUCONATE 4% CLEANSER FOR DECOLONIZATION TP SCH (22:16)
[2016-10-29] MEDS: HEPARIN NA (PORCINE) 5,000 UNITS/ML 1ML VIAL SQ SCH ×2 (06:15→13:39)
[2016-10-29] MEDS: ALBUTEROL SO4 2.5/IPRATROPIUM 0.5 INH SOL 3 ML VIAL.NEB. NEB SCH ×3 (06:59→18:15)
[2016-10-29 07:19] LABS: BASOPHIL 0.1 % (0-2.0); MCH 33.6 pg (25.7-33.7); MCHC 33.5 g/dl (32.0-35.9); MEAN CELL VOLUME 100.4 fl (80-96); MEAN PLT VOLUME 7.4 fl (7.5-11.1); NEUTROPHILS 87.8 % (42.8-82.8); PLATELET COUNT 134 K/MM3 (134-434); RDW 20.3 % (11.9-15.9); WHITE BLOOD COUNT 3.9 K/mm3 (4.0-10.0)
[2016-10-29 07:44] LABS: ALBUMIN 2.7 g/dl (3.4-5.0); CALCIUM 8.2 mg/dL (8.5-10.1); MAGNESIUM 2.2 mg/dL (1.8-2.4)
[2016-10-29 07:48] LABS: BILIRUBIN,TOTAL 1.5 mg/dL (0.2-1.0); COCKROFT - GAULT 57.04; CREATININE 1.2 mg/dL (0.7-1.3); TOT PROT 6.8 g/dl (6.4-8.2)
[2016-10-29] MEDS: methylPREDNISolone NA SUCC 40 MG/1 ML VIAL IVPB SCH ×2 (09:07→22:16)
[2016-10-29] MEDS: FUROSEMIDE 40 MG TABLET (FP) PO SCH (09:07)
[2016-10-29] MEDS: PANTOPRAZOLE 40 MG TABLET (FP) PO SCH (09:08)
[2016-10-29] MEDS: LOSARTAN POTASSIUM 25 MG TABLET PO SCH (09:08)
[2016-10-29] MEDS: DOCUSATE SODIUM 100 MG CAPSULE (FP) PO SCH (09:08)
[2016-10-29] MEDS: METOPROLOL TARTRATE 25 MG TABLET (FP) PO SCH ×2 (09:08→22:17)
[2016-10-29 09:11] LABS: HYPOCHROMIA 2+; POLYCHROMASIA FEW
[2016-10-29 09:12] LABS: ANISOCYTOSIS 2+
[2016-10-29] MEDS: NYSTATIN POWDER 100,000 UNITS/GM - 15 GM TOPICAL POWDER TP SCH (09:13)
[2016-10-29] MEDS: POLYETHYLENE GLYCOL 3350 119 GM BTL PO SCH ×2 (09:16→22:18)
--- NOTE | 2016-10-29 09:39 | PN ---
Progress Note, Physician History of Present Illness: Comfortable OOB to chair. 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 - Current Medication List Current Medications: Active Medications Albuterol Sulfate (Ventolin 0.083% Nebulizer Soln -) 1 amp NEB Q4H PRN PRN Reason: SHORT OF BREATH/WHEEZING Albuterol/Ipratropium (Duoneb -) 1 amp NEB QIDR [facility] Last Admin: 10/29/16 06:59 Dose: 1 amp Chlorhexidine Gluconate (Hibiclens For Decolonization -) 1 applic TP HS [facility] Last Admin: 10/28/16 22:16 Dose: Not Given Docusate Sodium (Colace -) 100 mg PO DAILY [facility] Last Admin: 10/29/16 09:08 Dose: 100 mg Furosemide (Lasix -) 40 mg PO DAILY [facility] Last Admin: 10/29/16 09:07 Dose: 40 mg Heparin Sodium (Porcine) (Heparin -) 5,000 unit SQ TID [facility] Last Admin: 10/29/16 06:15 Dose: 5,000 unit Losartan Potassium (Cozaar -) 25 mg PO DAILY [facility] Last Admin: 10/29/16 09:08 Dose: 25 mg Methylprednisolone Sodium Succinate (Solu-Medrol -) 40 mg IVPB BID [facility] Last Admin: 10/29/16 09:07 Dose: 40 mg Metoprolol Tartrate (Lopressor -) 25 mg PO BID [facility] Last Admin: 10/29/16 09:08 Dose: 25 mg Nystatin (Nystop Powder -) 1 applic TP DAILY [facility] Last Admin: 10/29/16 09:13 Dose: 1 applic Pantoprazole Sodium (Protonix -) 40 mg PO BID [facility] Last Admin: 10/29/16 09:08 Dose: 40 mg Polyethylene Glycol (Miralax (For Daily Use) -) 17 gm PO BID [facility] Last Admin: 10/29/16 09:16 Dose: Not Given - Objective Vital Signs: Vital Signs Temperature 98 F 10/29/16 08:33 Pulse Rate 82 10/29/16 08:33 Respiratory Rate 22 10/29/16 08:33 Blood Pressure 119/51 10/29/16 08:33 O2 Sat by Pulse Oximetry (%) 98 10/28/16 21:00 Constitutional: Yes: No Distress, Calm Neck: Yes: Supple Cardiovascular: Yes: Pulse Irregular Respiratory: Yes: Regular, Diminished Gastrointestinal: Yes: Normal Bowel Sounds, Soft, Abdomen, Obese Edema: Yes Edema: LLE: 1+, RLE: 1+ Labs: CBC, BMP 10/29/16 05:35 10/29/16 05:35 INR, PTT INR 1.71 (0.82-1.09) H D 10/25/16 05:15 - ....Imaging EKG: Report Reviewed (Tele: Afib rate-controlled) Problem List - Problems (1) Aspiration into respiratory tract Code(s): T17.908A - UNSP FB IN RESP TRACT, PART UNSP CAUSING OTH INJURY, INIT Qualifiers: Encounter type: initial encounter Qualified Code(s): T17.908A - Unspecified foreign body in respiratory tract, part unspecified causing other injury, initial encounter (2) CO2 narcosis Code(s): R06.89 - OTHER ABNORMALITIES OF BREATHING (3) COPD (chronic obstructive pulmonary disease) Code(s): J44.9 - CHRONIC OBSTRUCTIVE PULMONARY DISEASE, UNSPECIFIED Qualifiers : COPD type: unspecified COPD Qualified Code(s): J44.9 - Chronic obstructive pulmonary disease, unspecified (4) Severe anemia Code(s): D64.9 - ANEMIA, UNSPECIFIED (5) Shortness of breath Code(s): R06.02 - SHORTNESS OF BREATH (6) Systolic and diastolic CHF, acute on chronic Code(s): I50.43 - ACUTE ON CHRONIC COMBINED SYSTOLIC AND DIASTOLIC HRT FAIL (7) Atrial fibrillation Code(s): I48.91 - UNSPECIFIED ATRIAL FIBRILLATION Qualifiers: Atrial fibrillation type: persistent Qualified Code(s): I48.1 - Persistent atrial fibrillation (8) CAD (coronary artery disease) Code(s): I25.10 - ATHSCL HEART DISEASE OF [place] CORONARY ARTERY W/O ANG PCTRS Qualifiers: Coronary Disease-Associated Artery/Lesion type: [place] artery [place] vs. transplanted heart: [place] heart Associated angina: without angina Qualified Code(s): I25.10 - Atherosclerotic heart disease of [place] coronary artery without angina pectoris (9) H/O atrial septal defect repair Code(s): Z98.89 - OTHER SPECIFIED POSTPROCEDURAL STATES * DO NOT USE * Z87.74 - PERSONAL HISTORY OF CONGENITAL MALFORM OF HEART AND CIRC SYS (10) Hypercholesterolemia Code(s): E78.0 - PURE HYPERCHOLESTEROLEMIA * DO NOT USE * (11) Hypertension Code(s): I10 - ESSENTIAL (PRIMARY) HYPERTENSION Qualifiers: Hypertension type: essential hypertension Qualified Code(s): I10 - Essential (primary) hypertension (12) Right bundle branch block Code(s): I45.10 - UNSPECIFIED RIGHT BUNDLE-BRANCH BLOCK Assessment/Plan 10/28/2015 Echo: Normal LV size and fxn, mod decreased RV fxn, severe LAE, mild- mod CHRISTIAN, mild MR, mild-mod TR, RVSP 50-60 mmHg, mod [place], [place] 1. s/p acute hypercapneic respiratory failure acute exacerbation of COPD, underlying anemia 2. Resolved recurrent lower GI bleed etiology suspect internal hemorrhoidal, prior history of diverticular bleed post resection of a large rectal polyp 3. Chronic diastolic heart failure with moderate to severe degree of pulmonary HTN 4. 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 Persistent atrial fibrillation post Cryo-Maze and NATE ligation, [id number] off of A/C 6. HTN 7. Hypercholesterolemia 8. ASD post surgical repair 9. Reactive airway disease/COPD 10. 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 CKD PLAN: 1. Transfuse to maintain Hg equal or > 8.0 2. As outlined recommend withholding Coumadin therapy at this point indefinitely recognizing elevated stroke risk ([id number] score of 5) and h/o NATE ligation considering the above noted presentation, pending resolution 3. Monitor off antibiotics as per the primary team (+ Mycoplasma titer) 4. Continue Lasix 40 qd with close monitoring of renal function and electrolytes 5. Continue Lopressor 25 bid, hemodynamics permitting 6. Continue Cozaar 25 qd, hemodynamic permitting 7. Empiric steroid taper with GI protection per heme, BD, f/u flow cytometry, hesitant for bone marrow biopsy 8. DVT prophlyaxis, wrap legs
--- NOTE | 2016-10-29 10:42 | PN ---
Progress Note (short form) - Note Progress Note: patient seen and examined feels better Last Vital Signs Temp Pulse Resp BP Pulse Ox 98 F 82 22 119/51 92 L 10/29/16 08:33 10/29/16 08:33 10/29/16 08:33 10/29/16 08:33 10/29/16 08:00 Cor: RSR, No murmurs, No gallops Lungs: Clear to P&A Abd: Soft, Normal bowel sounds, No organomegaly Ext:stasis dermatitis Abnormal Lab Results 10/29/16 10/29/16 05:35 05:35 WBC 3.9 L RBC 2.53 L Hgb 8.5 L Hct 25.4 L MCV 100.4 H RDW 20.3 H MPV 7.4 L Neutrophils % 87.8 H Lymphocytes % 4.7 L Chloride 95 L Carbon Dioxide 35 H Anion Gap 6 L BUN 38 H Random Glucose 149 H D Calcium 8.2 L Total Bilirubin 1.5 H Albumin 2.7 L Active Medications Generic Name Dose Route Start Last Admin Trade Name Freq PRN Reason Stop Dose Admin Albuterol Sulfate 1 amp 10/27/16 08:31 Ventolin 0.083% Nebulizer Soln - NEB Q4H PRN SHORT OF BREATH/WHEEZING Albuterol/Ipratropium 1 amp 10/27/16 12:00 10/29/16 06:59 Duoneb - NEB 1 amp QIDR RUBIA Administration Chlorhexidine Gluconate 1 applic 10/27/16 22:00 10/28/16 22:16 Hibiclens For Decolonization - TP Not Given HS RUBIA Docusate Sodium 100 mg 10/27/16 10:00 10/29/16 09:08 Colace - PO 100 mg DAILY RUBIA Administration Furosemide 40 mg 10/27/16 10:00 10/29/16 09:07 Lasix - PO 40 mg DAILY RUBIA Administration Heparin Sodium (Porcine) 5,000 unit 10/27/16 14:00 10/29/16 06:15 Heparin - SQ 5,000 unit TID RUBIA Administration Losartan Potassium 25 mg 10/27/16 10:00 10/29/16 09:08 Cozaar - PO 25 mg DAILY RUBIA Administration Methylprednisolone Sodium Succinate 40 mg 10/27/16 10:00 10/29/16 09:07 Solu-Medrol - IVPB 40 mg BID RUBIA Administration Metoprolol Tartrate 25 mg 10/27/16 10:00 10/29/16 09:08 Lopressor - PO 25 mg BID RUBIA Administration Nystatin 1 applic 10/27/16 10:00 10/29/16 09:13 Nystop Powder - TP 1 applic DAILY RUBIA Administration Pantoprazole Sodium 40 mg 10/27/16 10:00 10/29/16 09:08 Protonix - PO 40 mg BID RUBIA Administration Polyethylene Glycol 17 gm 10/27/16 10:00 10/29/16 09:16 Miralax (For Daily Use) - PO Not Given BID RUBIA A/P 86 y/o patient with anemia, + benson agglutinin + cold agglutinin nl LDH/haptoglobin ? 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 stable on steroids stool occult +/ coumadin on hold U/S--fatty liver/splenomegaly Flow shows --? monoclonal B cell population. Lambda light chains elevated in 1000s, ratio 0.03 discussed bone marrow evaluation with patient to r/o MGUS/myeloma versus lymphoproliferative process will also check CT scans discussed with Dr. Pennington and patient
--- NOTE | 2016-10-29 11:31 | PN ---
Progress Note, Physician History of Present Illness: PULMONARY ALERT,NAD,-SOB,-CP. PT FOR BONE MARROW BX TODAY - Current Medication List Current Medications: Active Medications Albuterol Sulfate (Ventolin 0.083% Nebulizer Soln -) 1 amp NEB Q4H PRN PRN Reason: SHORT OF BREATH/WHEEZING Albuterol/Ipratropium (Duoneb -) 1 amp NEB QIDR [facility] Last Admin: 10/29/16 06:59 Dose: 1 amp Chlorhexidine Gluconate (Hibiclens For Decolonization -) 1 applic TP HS [facility] Last Admin: 10/28/16 22:16 Dose: Not Given Docusate Sodium (Colace -) 100 mg PO DAILY [facility] Last Admin: 10/29/16 09:08 Dose: 100 mg Furosemide (Lasix -) 40 mg PO DAILY [facility] Last Admin: 10/29/16 09:07 Dose: 40 mg Heparin Sodium (Porcine) (Heparin -) 5,000 unit SQ TID [facility] Last Admin: 10/29/16 06:15 Dose: 5,000 unit Losartan Potassium (Cozaar -) 25 mg PO DAILY [facility] Last Admin: 10/29/16 09:08 Dose: 25 mg Methylprednisolone Sodium Succinate (Solu-Medrol -) 40 mg IVPB BID [facility] Last Admin: 10/29/16 09:07 Dose: 40 mg Metoprolol Tartrate (Lopressor -) 25 mg PO BID [facility] Last Admin: 10/29/16 09:08 Dose: 25 mg Nystatin (Nystop Powder -) 1 applic TP DAILY [facility] Last Admin: 10/29/16 09:13 Dose: 1 applic Pantoprazole Sodium (Protonix -) 40 mg PO BID [facility] Last Admin: 10/29/16 09:08 Dose: 40 mg Polyethylene Glycol (Miralax (For Daily Use) -) 17 gm PO BID [facility] Last Admin: 10/29/16 09:16 Dose: Not Given - Objective Vital Signs: Vital Signs Temperature 98 F 10/29/16 08:33 Pulse Rate 82 10/29/16 08:33 Respiratory Rate 22 10/29/16 08:33 Blood Pressure 119/51 10/29/16 08:33 O2 Sat by Pulse Oximetry (%) 92 L 10/29/16 08:00 Constitutional: Yes: Well Nourished, Calm Eyes: Yes: WNL HENT: Yes: WNL Neck: Yes: WNL Cardiovascular: Yes: Pulse Irregular, S1, S2 Respiratory: Yes: Rales (FEW BIBASILAR CRACKLES) Gastrointestinal: Yes: Normal Bowel Sounds, Soft Extremities: Yes: WNL Edema: Yes Labs: CBC, BMP 10/29/16 05:35 10/29/16 05:35 INR, PTT INR 1.71 (0.82-1.09) H D 10/25/16 05:15 Problem List - Problems (1) Aspiration into respiratory tract Code(s): T17.908A - UNSP FB IN RESP TRACT, PART UNSP CAUSING OTH INJURY, INIT Qualifiers: Encounter type: initial encounter Qualified Code(s): T17.908A - Unspecified foreign body in respiratory tract, part unspecified causing other injury, initial encounter (2) CO2 narcosis Code(s): R06.89 - OTHER ABNORMALITIES OF BREATHING (3) COPD (chronic obstructive pulmonary disease) Code(s): J44.9 - CHRONIC OBSTRUCTIVE PULMONARY DISEASE, UNSPECIFIED Qualifiers : COPD type: unspecified COPD Qualified Code(s): J44.9 - Chronic obstructive pulmonary disease, unspecified (4) Anemia Code(s): D64.9 - ANEMIA, UNSPECIFIED Qualifiers: Anemia type: iron deficiency (5) GI bleed Code(s): K92.2 - GASTROINTESTINAL HEMORRHAGE, UNSPECIFIED Qualifiers: GI bleed type/associated pathology: diverticulosis Qualified Code(s) : K57.91 - Diverticulosis of intestine, part unspecified, without perforation or abscess with bleeding (6) Severe anemia Code(s): D64.9 - ANEMIA, UNSPECIFIED (7) Shortness of breath Code(s): R06.02 - SHORTNESS OF BREATH (8) Systolic and diastolic CHF, acute on chronic Code(s): I50.43 - ACUTE ON CHRONIC COMBINED SYSTOLIC AND DIASTOLIC HRT FAIL (9) Atrial fibrillation Code(s): I48.91 - UNSPECIFIED ATRIAL FIBRILLATION Qualifiers: Atrial fibrillation type: persistent Qualified Code(s): I48.1 - Persistent atrial fibrillation (10) CAD (coronary artery disease) Code(s): I25.10 - ATHSCL HEART DISEASE OF [place] CORONARY ARTERY W/O ANG PCTRS Qualifiers: Coronary Disease-Associated Artery/Lesion type: [place] artery [place] vs. transplanted heart: [place] heart Associated angina: without angina Qualified Code(s): I25.10 - Atherosclerotic heart disease of [place] coronary artery without angina pectoris (11) Hypercholesterolemia Code(s): E78.0 - PURE HYPERCHOLESTEROLEMIA * DO NOT USE * (12) Hypertension Code(s): I10 - ESSENTIAL (PRIMARY) HYPERTENSION Qualifiers: Hypertension type: essential hypertension Qualified Code(s): I10 - Essential (primary) hypertension Assessment/Plan ASSESSMENT AND PLAN: s/p Acute Hypercapneic Respiratory Failure improved Acute COPD Exacerbation improved LV Diastolic Dysfunction Pulmonary HTN CAD Atrial Fibrillation HTN CKD ASD s/p repair r/o myeloproliferative disorder - medrol bid - inhaled bronchodilators - monitor CBC - transfuse as needed - BMBx today - lasix - DVT/GI prophylaxis DR ANAND
[2016-10-29 11:37] LABS: INR 1.14 (0.82-1.09); PROTHROMBIN TIME (PATIENT) 12.6 SEC (9.98-11.88)
[2016-10-29 11:39] LABS: ACTIVATED PTT 32.7 SECONDS (26.9-34.4)
[2016-10-29] MEDS ORDERED: LIDOCAINE HCL 1%, 10 MG/ML (20ML VIAL) ONE (11:43)
--- NOTE | 2016-10-29 12:12 | PN ---
Physical Exam: SUBJECTIVE: Patient seen and examined earlier today during an albuterol treatment. States he feels well. Signing consent paper work for bone biopsy today. OBJECTIVE: Will order PT for bone biopsy today with Dr. Lebron Vital Signs Period Temp Pulse Resp BP Sys/Brian Pulse Ox Last 24 Hr 97.7 F-98.0 F 74-91 18-22 98-131/42-89 92-98 GENERAL: The patient is awake, alert, and fully oriented, in no acute distress. HEAD: Normal with no signs of trauma. EYES: PERRL, extraocular movements intact, sclera anicteric, conjunctiva clear. No ptosis. ENT: Ears normal, nares patent, oropharynx clear without exudates, moist mucous membranes. NECK: Trachea midline, full range of motion, supple. LUNGS: Breath sounds equal, clear/diminished to auscultation bilaterally, mild scattered wheezes posteriorly, no crackles, no accessory muscle use. ABDOMEN: Soft, nontender, nondistended, normoactive bowel sounds, no guarding, no rebound, no hepatosplenomegaly, no masses. EXTREMITIES: Bilateral lower extremities with +1 pitting edema NEUROLOGICAL: Normal speech, gait not observed. PSYCH: Normal mood, normal affect. SKIN: Warm, dry, normal turgor, no rashes or lesions noted Laboratory Results - last 24 hr 10/29/16 10/29/16 10/29/16 05:35 05:35 06:06 WBC 3.9 L RBC 2.53 L Hgb 8.5 L Hct 25.4 L MCV 100.4 H MCHC 33.5 RDW 20.3 H Plt Count 134 MPV 7.4 L Neutrophils % 87.8 H Lymphocytes % 4.7 L Monocytes % 7.4 Eosinophils % 0.0 Basophils % 0.1 Polychromasia Few Hypochromic-Microcytic 2+ Basophilic Stippling 1+ Anisocytosis 2+ Macrocytosis 2+ INR PTT (Actin FS) Sodium 136 Potassium 4.7 Chloride 95 L Carbon Dioxide 35 H Anion Gap 6 L BUN 38 H Creatinine 1.2 Creat Clearance w eGFR 57.27 POC Glucometer 154 Random Glucose 149 H D Calcium 8.2 L Magnesium 2.2 Total Bilirubin 1.5 H AST 15 D ALT 27 Alkaline Phosphatase 64 Total Protein 6.8 Albumin 2.7 L 10/29/16 11:00 WBC RBC Hgb Hct MCV MCHC RDW Plt Count MPV Neutrophils % Lymphocytes % Monocytes % Eosinophils % Basophils % Polychromasia Hypochromic-Microcytic Basophilic Stippling Anisocytosis Macrocytosis INR 1.14 D PTT (Actin FS) 32.7 Sodium Potassium Chloride Carbon Dioxide Anion Gap BUN Creatinine Creat Clearance w eGFR POC Glucometer Random Glucose Calcium Magnesium Total Bilirubin AST ALT Alkaline Phosphatase Total Protein Albumin Active Medications Generic Name Dose Route Start Last Admin Trade Name Freq PRN Reason Stop Dose Admin Albuterol Sulfate 1 amp 10/27/16 08:31 Ventolin 0.083% Nebulizer Soln - NEB Q4H PRN SHORT OF BREATH/WHEEZING Albuterol/Ipratropium 1 amp 10/27/16 12:00 10/29/16 06:59 Duoneb - NEB 1 amp QIDR RUBIA Administration Chlorhexidine Gluconate 1 applic 10/27/16 22:00 10/28/16 22:16 Hibiclens For Decolonization - TP Not Given HS RUBIA Docusate Sodium 100 mg 10/27/16 10:00 10/29/16 09:08 Colace - PO 100 mg DAILY RUBIA Administration Furosemide 40 mg 10/27/16 10:00 10/29/16 09:07 Lasix - PO 40 mg DAILY RUBIA Administration Heparin Sodium (Porcine) 5,000 unit 10/27/16 14:00 10/29/16 06:15 Heparin - SQ 5,000 unit TID RUBIA Administration Losartan Potassium 25 mg 10/27/16 10:00 10/29/16 09:08 Cozaar - PO 25 mg DAILY RUBIA Administration Methylprednisolone Sodium Succinate 40 mg 10/27/16 10:00 10/29/16 09:07 Solu-Medrol - IVPB 40 mg BID RUBIA Administration Metoprolol Tartrate 25 mg 10/27/16 10:00 10/29/16 09:08 Lopressor - PO 25 mg BID RUBIA Administration Nystatin 1 applic 10/27/16 10:00 10/29/16 09:13 Nystop Powder - TP 1 applic DAILY RUBIA Administration Pantoprazole Sodium 40 mg 10/27/16 10:00 10/29/16 09:08 Protonix - PO 40 mg BID RUBIA Administration Polyethylene Glycol 17 gm 10/27/16 10:00 10/29/16 09:16 Miralax (For Daily Use) - PO Not Given BID RUBIA ASSESSMENT/PLAN: Patient is an 86 year old male with a signficant past medical history of asthma , anemia, congestive heart failure, atrial fibrillation (on Coumadin), CAD, COPD , pulmonary hypertension and GI bleed. He presented to the ED on 10/22/2016 with COPD and carbon dioxide narcosis. Pulmonary: COPD: Acute hypercapnic and hypoxic respiratory failure - improving Assessment/Plan: S/P ICU intubation, now tolerating oxygen @ 2 liter nasal cannula, @96% Breathing is improving, patient continues to deny shortness of breath on exam On Solumedrol 40mg BID, Albuterol QID scheduled Monitor respiratory status Pulmonary hypertension Assessment/Plan: On Lasix 40mg daily Cardiology: Atrial Fibrillation Assessment/Plan: On home Coumadin, which is currently on hold as per hematology/ cardiology Rate control with Lopressor 25mg PO BID Monitor on tele SCDs when in bed Congestive heart failure Assessment/Plan: On Lasix 40mg daily On metoprolol 25mg PO BID supplemental oxygen duonebs Hematology: Anemia - likely chronic Assessment/Plan: hmg/hct low stable CBC in a.m. Hematology following for Hemolysis vs. bone marrow suppression Assessment/Plan: Heme following for likely hematologic disorder and neutropenia On steriods for bone biopsy today GI: GI bleed - with no overt signs of bleeding Assessment/Plan: Stool occult positive Monitor hmg/hct On Protonix 40mg BID No GI discomfort F.E.N. Fluids: tolerating PO Electrolytes: monitor with BMP Nutrition: low sodium, regular diet Prophylaxis: DVT: SCDs, Heparin TID while Coumadin is on hold GI: Protonix 40mg BID Disposition: Requires inpatient hospitalization. Full code. Visit type - Emergency Visit Emergency Visit: Yes ED Registration Date: 10/22/16 Care time: The patient presented to the Emergency Department on the above date and was hospitalized for further evaluation of their emergent condition. - New Patient This patient is new to me today: No - Critical Care Critical Care patient: No - Discharge Referral Referred to [facility] Med P.C.: No
--- NOTE | 2016-10-29 14:19 | PROC ---
Bone Marrow Aspiration/Biopsy - Consent Risks and Benefits Explained: Yes Consent on Chart: Yes - Procedure Location: Right Iliac Crest Anesthesia: 1% Lidocaine Sterile Technique: Yes Specimen: Obtained Position: Other (left lateral) Patient tolerated procedure: Well with minimal pain Sterile Dressing Applied: Yes
[2016-10-29] MEDS ORDERED: MELATONIN 5 MG TABLETS PO PRN (17:35)
[2016-10-29] MEDS ORDERED: PANTOPRAZOLE 40 MG TABLET (FP) PO SCH (20:01)
[2016-10-29] MEDS: CHLORHEXIDINE GLUCONATE 4% CLEANSER FOR DECOLONIZATION TP SCH (22:17)
[2016-10-30] MEDS: ALBUTEROL SO4 2.5/IPRATROPIUM 0.5 INH SOL 3 ML VIAL.NEB. NEB SCH ×4 (00:05→17:27)
[2016-10-30] MEDS: HEPARIN NA (PORCINE) 5,000 UNITS/ML 1ML VIAL SQ SCH ×3 (01:56→22:21)
[2016-10-30 08:05] LABS: BASOPHIL 0.1 % (0-2.0); MCH 33.1 pg (25.7-33.7); MCHC 32.7 g/dl (32.0-35.9); MEAN CELL VOLUME 101.5 fl (80-96); MEAN PLT VOLUME 7.3 fl (7.5-11.1); NEUTROPHILS 86.5 % (42.8-82.8); PLATELET COUNT 149 K/MM3 (134-434); RDW 20.2 % (11.9-15.9)
[2016-10-30 09:03] LABS: ALBUMIN 2.9 g/dl (3.4-5.0); ALK PHOS 67 U/L (45-117); ANION GAP 5 (8-16); BILIRUBIN,TOTAL 1.5 mg/dL (0.2-1.0); CALCIUM 8.6 mg/dL (8.5-10.1); CO2 37 mmol/L (21-32); COCKROFT - GAULT 62.22; CREATININE 1.1 mg/dL (0.7-1.3); GLUCOSE,RANDOM 136 mg/dL (74-106); SGOT/AST 14 U/L (15-37); SGPT/ALT 27 U/L (12-78)
--- NOTE | 2016-10-30 09:13 | PN ---
Physical Exam: SUBJECTIVE: Patient seen and examined. Denies shortness of breath or chest pain. States he is having trouble sleeping @ night. OBJECTIVE: + mild expiratory wheezing, on 2 liters of oxygen States he is having difficulty sleeping Sitting chair, no dyspnea noted on exam +2 bilateral lower ext. pitting edema 1425: called by primary RN that patient had some nita red blood from his left nostril On assessment, patient had a tissue packed into his left nostril with a scant amount of nita blood some tissues with small amts of blood noted inside small garbage bag. Plan: hold 2pm dose of Heparin and add humidified oxygen. Resume heparin @ 10pm and continue as ordered Vital Signs Period Temp Pulse Resp BP Sys/Brian Pulse Ox Last 24 Hr 97 F-98.4 F 68-98 19-20 92-126/53-69 95 GENERAL: The patient is awake, alert, and fully oriented, in no acute distress. HEAD: Normal with no signs of trauma. EYES: PERRL, extraocular movements intact, sclera anicteric, conjunctiva clear. No ptosis. ENT: Ears normal, nares patent, oropharynx clear without exudates, moist mucous membranes. NECK: Trachea midline, full range of motion, supple. LUNGS: Breath sounds equal, clear/diminished to auscultation bilaterally, mild scattered wheezes posteriorly, no crackles, no accessory muscle use. ABDOMEN: Soft, nontender, nondistended, normoactive bowel sounds, no guarding, no rebound, no hepatosplenomegaly, no masses. EXTREMITIES: Bilateral lower extremities with +1 pitting edema NEUROLOGICAL: Normal speech, gait not observed. PSYCH: Normal mood, normal affect. SKIN: Warm, dry, normal turgor, no rashes or lesions noted Laboratory Results - last 24 hr 10/29/16 10/29/16 10/30/16 05:35 11:00 06:00 WBC 4.0 RBC 2.60 L Hgb 8.6 L Hct 26.4 L MCV 101.5 H MCHC 32.7 RDW 20.2 H Plt Count 149 MPV 7.3 L Neutrophils % 86.5 H Lymphocytes % 4.3 L Monocytes % 9.1 Eosinophils % 0.0 Basophils % 0.1 Polychromasia Few Hypochromic-Microcytic 2+ Basophilic Stippling 1+ Anisocytosis 2+ Macrocytosis 2+ INR 1.14 D PTT (Actin FS) 32.7 Active Medications Generic Name Dose Route Start Last Admin Trade Name Freq PRN Reason Stop Dose Admin Albuterol Sulfate 1 amp 10/27/16 08:31 Ventolin 0.083% Nebulizer Soln - NEB Q4H PRN SHORT OF BREATH/WHEEZING Albuterol/Ipratropium 1 amp 10/27/16 12:00 10/30/16 07:16 Duoneb - NEB 1 amp QIDR RUBIA Administration Chlorhexidine Gluconate 1 applic 10/27/16 22:00 10/29/16 22:17 Hibiclens For Decolonization - TP Not Given HS RUBIA Docusate Sodium 100 mg 10/27/16 10:00 10/29/16 09:08 Colace - PO 100 mg DAILY RUBIA Administration Furosemide 40 mg 10/27/16 10:00 10/29/16 09:07 Lasix - PO 40 mg DAILY RUBIA Administration Heparin Sodium (Porcine) 5,000 unit 10/27/16 14:00 10/30/16 01:56 Heparin - SQ Not Given TID RUBIA Losartan Potassium 25 mg 10/27/16 10:00 10/29/16 09:08 Cozaar - PO 25 mg DAILY RUBIA Administration Melatonin 5 mg 10/29/16 17:35 Melatonin PO HS PRN INSOMNIA Methylprednisolone Sodium Succinate 40 mg 10/27/16 10:00 10/29/16 22:16 Solu-Medrol - IVPB 40 mg BID RUBIA Administration Metoprolol Tartrate 25 mg 10/27/16 10:00 10/29/16 22:17 Lopressor - PO 25 mg BID RUBIA Administration Nystatin 1 applic 10/27/16 10:00 10/29/16 09:13 Nystop Powder - TP 1 applic DAILY RUBIA Administration Pantoprazole Sodium 40 mg 10/30/16 10:00 Protonix - PO BID RUBIA Polyethylene Glycol 17 gm 10/27/16 10:00 10/29/16 22:18 Miralax (For Daily Use) - PO 17 gm BID RUBIA Administration ASSESSMENT/PLAN: Patient is an 86 year old male with a significant past medical history of asthma , anemia, congestive heart failure, atrial fibrillation (on Coumadin), CAD, COPD , pulmonary hypertension and GI bleed. He presented to the ED on 10/22/2016 with COPD and carbon dioxide narcosis. Pulmonary: COPD: Acute hypercapnic and hypoxic respiratory failure - improving Assessment/Plan: S/P ICU intubation, now tolerating oxygen @ 2 liter nasal cannula, sats @96% Breathing is improving, patient continues to deny shortness of breath on exam No conversational dyspnea noted On Solumedrol 40mg BID, Albuterol QID scheduled Monitor respiratory status Pulmonary hypertension Assessment/Plan: On Lasix 40mg daily Cardiology: Atrial Fibrillation Assessment/Plan: On home Coumadin, which is currently on hold as per hematology/ cardiology Rate control with Lopressor 25mg PO BID Monitor on tele SCDs when in bed Congestive heart failure Assessment/Plan: On Lasix 40mg daily On metoprolol 25mg PO BID supplemental humidified oxygen duonebs Hematology: Anemia - likely chronic Assessment/Plan: hmg/hct continues to be low stable CBC daily hematology following for hematologic disorder patient is s/p biopsy yesterday Hemolysis vs. bone marrow suppression Assessment/Plan: Heme following for likely hematologic disorder and neutropenia Awaiting results of bone marrow biopsy Epistaxis - left nare/acute Assessment/Plan: scant amt of nita red blood noted from left nare hold 2pm dose of heparin resume heparin @ 10pm Apply humidified oxygen Will order saline nasal spray TID If continues to have epistaxis, consider ENT consult GI: GI bleed - with no overt signs of bleeding Assessment/Plan: Stool occult positive Monitor hmg/hct On Protonix 40mg BID No GI discomfort F.E.N. Fluids: tolerating PO Electrolytes: monitor with BMP Nutrition: low sodium, regular diet Prophylaxis: DVT: SCDs, Heparin TID while Coumadin is on hold GI: Protonix 40mg BID Disposition: Requires inpatient hospitalization. Full code. Visit type - Emergency Visit Emergency Visit: Yes ED Registration Date: 10/22/16 Care time: The patient presented to the Emergency Department on the above date and was hospitalized for further evaluation of their emergent condition. - New Patient This patient is new to me today: No - Critical Care Critical Care patient: No - Discharge Referral Referred to [facility] Med [facility] No
--- NOTE | 2016-10-30 09:22 | PN ---
Progress Note, Physician History of Present Illness: PULMONARY ALERT,NO DISTRESS,C/O MILD COUGH.PT S/P BONE MARROW BX. - Current Medication List Current Medications: Active Medications Albuterol Sulfate (Ventolin 0.083% Nebulizer Soln -) 1 amp NEB Q4H PRN PRN Reason: SHORT OF BREATH/WHEEZING Albuterol/Ipratropium (Duoneb -) 1 amp NEB QIDR [facility] Last Admin: 10/30/16 07:16 Dose: 1 amp Chlorhexidine Gluconate (Hibiclens For Decolonization -) 1 applic TP HS [facility] Last Admin: 10/29/16 22:17 Dose: Not Given Docusate Sodium (Colace -) 100 mg PO DAILY [facility] Last Admin: 10/29/16 09:08 Dose: 100 mg Furosemide (Lasix -) 40 mg PO DAILY [facility] Last Admin: 10/29/16 09:07 Dose: 40 mg Guaifenesin (Robitussin -) 10 ml PO Q8H [facility] Heparin Sodium (Porcine) (Heparin -) 5,000 unit SQ TID [facility] Last Admin: 10/30/16 01:56 Dose: Not Given Losartan Potassium (Cozaar -) 25 mg PO DAILY [facility] Last Admin: 10/29/16 09:08 Dose: 25 mg Melatonin (Melatonin) 5 mg PO HS [facility] Methylprednisolone Sodium Succinate (Solu-Medrol -) 40 mg IVPB BID [facility] Last Admin: 10/29/16 22:16 Dose: 40 mg Metoprolol Tartrate (Lopressor -) 25 mg PO BID [facility] Last Admin: 10/29/16 22:17 Dose: 25 mg Nystatin (Nystop Powder -) 1 applic TP DAILY [facility] Last Admin: 10/29/16 09:13 Dose: 1 applic Pantoprazole Sodium (Protonix -) 40 mg PO BID [facility] Polyethylene Glycol (Miralax (For Daily Use) -) 17 gm PO BID [facility] Last Admin: 10/29/16 22:18 Dose: 17 gm - Objective Vital Signs: Vital Signs Temperature 97 F L 10/30/16 05:35 Pulse Rate 68 10/30/16 05:35 Respiratory Rate 20 10/30/16 05:35 Blood Pressure 126/65 10/30/16 05:35 O2 Sat by Pulse Oximetry (%) 95 10/29/16 21:00 Constitutional: Yes: Well Nourished, Calm Eyes: Yes: WNL HENT: Yes: WNL Neck: Yes: WNL Cardiovascular: Yes: Pulse Irregular, S1, S2 Respiratory: Yes: Rales (BIBASILAR CRACKLES) Gastrointestinal: Yes: Normal Bowel Sounds, Soft Extremities: Yes: WNL Edema: Yes Labs: CBC, BMP 10/30/16 06:00 10/30/16 06:00 INR, PTT INR 1.14 (0.82-1.09) D 10/29/16 11:00 Problem List - Problems (1) Aspiration into respiratory tract Code(s): T17.908A - UNSP FB IN RESP TRACT, PART UNSP CAUSING OTH INJURY, INIT Qualifiers: Encounter type: initial encounter Qualified Code(s): T17.908A - Unspecified foreign body in respiratory tract, part unspecified causing other injury, initial encounter (2) CO2 narcosis Code(s): R06.89 - OTHER ABNORMALITIES OF BREATHING (3) COPD (chronic obstructive pulmonary disease) Code(s): J44.9 - CHRONIC OBSTRUCTIVE PULMONARY DISEASE, UNSPECIFIED Qualifiers : COPD type: unspecified COPD Qualified Code(s): J44.9 - Chronic obstructive pulmonary disease, unspecified (4) Anemia Code(s): D64.9 - ANEMIA, UNSPECIFIED Qualifiers: Anemia type: iron deficiency (5) GI bleed Code(s): K92.2 - GASTROINTESTINAL HEMORRHAGE, UNSPECIFIED Qualifiers: GI bleed type/associated pathology: diverticulosis Qualified Code(s) : K57.91 - Diverticulosis of intestine, part unspecified, without perforation or abscess with bleeding (6) Severe anemia Code(s): D64.9 - ANEMIA, UNSPECIFIED (7) Shortness of breath Code(s): R06.02 - SHORTNESS OF BREATH (8) Systolic and diastolic CHF, acute on chronic Code(s): I50.43 - ACUTE ON CHRONIC COMBINED SYSTOLIC AND DIASTOLIC HRT FAIL (9) Atrial fibrillation Code(s): I48.91 - UNSPECIFIED ATRIAL FIBRILLATION Qualifiers: Atrial fibrillation type: persistent Qualified Code(s): I48.1 - Persistent atrial fibrillation (10) CAD (coronary artery disease) Code(s): I25.10 - ATHSCL HEART DISEASE OF [place] CORONARY ARTERY W/O ANG PCTRS Qualifiers: Coronary Disease-Associated Artery/Lesion type: [place] artery [place] vs. transplanted heart: [place] heart Associated angina: without angina Qualified Code(s): I25.10 - Atherosclerotic heart disease of [place] coronary artery without angina pectoris (11) Hypercholesterolemia Code(s): E78.0 - PURE HYPERCHOLESTEROLEMIA * DO NOT USE * (12) Hypertension Code(s): I10 - ESSENTIAL (PRIMARY) HYPERTENSION Qualifiers: Hypertension type: essential hypertension Qualified Code(s): I10 - Essential (primary) hypertension Assessment/Plan ASSESSMENT AND PLAN: s/p Acute Hypercapneic Respiratory Failure improved Acute COPD Exacerbation improved LV Diastolic Dysfunction Pulmonary HTN CAD Atrial Fibrillation HTN CKD ASD s/p repair r/o myeloproliferative disorder - medrol bid - inhaled bronchodilators - monitor CBC - transfuse as needed - lasix - DVT/GI prophylaxis - anti-tussives - chest x-ray DR ANAND
[2016-10-30] MEDS: methylPREDNISolone NA SUCC 40 MG/1 ML VIAL IVPB SCH ×2 (10:34→22:21)
[2016-10-30] MEDS: DOCUSATE SODIUM 100 MG CAPSULE (FP) PO SCH (10:35)
[2016-10-30] MEDS: LOSARTAN POTASSIUM 25 MG TABLET PO SCH (10:35)
[2016-10-30] MEDS: guaiFENesin 200 MG/10 ML 10 ML UNIT-DOSE CUPS PO SCH ×3 (10:35→22:21)
[2016-10-30] MEDS: FUROSEMIDE 40 MG TABLET (FP) PO SCH (10:35)
[2016-10-30] MEDS: METOPROLOL TARTRATE 25 MG TABLET (FP) PO SCH ×2 (10:35→22:21)
[2016-10-30] MEDS: PANTOPRAZOLE 40 MG TABLET (FP) PO SCH ×2 (10:35→22:21)
[2016-10-30] MEDS: POLYETHYLENE GLYCOL 3350 119 GM BTL PO SCH ×2 (10:42→22:19)
[2016-10-30] MEDS: NYSTATIN POWDER 100,000 UNITS/GM - 15 GM TOPICAL POWDER TP SCH (15:02)
[2016-10-30] MEDS ORDERED: SODIUM CHLORIDE NASAL SPRAY 44 ML BOTTLE NS PRN (15:47)
--- NOTE | 2016-10-30 17:37 | PN ---
Progress Note, Physician History of Present Illness: Comfortable OOB to chair. 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 - Current Medication List Current Medications: Active Medications Albuterol Sulfate (Ventolin 0.083% Nebulizer Soln -) 1 amp NEB Q4H PRN PRN Reason: SHORT OF BREATH/WHEEZING Albuterol/Ipratropium (Duoneb -) 1 amp NEB QIDR [facility] Last Admin: 10/30/16 11:57 Dose: 1 amp Chlorhexidine Gluconate (Hibiclens For Decolonization -) 1 applic TP HS [facility] Last Admin: 10/29/16 22:17 Dose: Not Given Docusate Sodium (Colace -) 100 mg PO DAILY [facility] Last Admin: 10/30/16 10:35 Dose: 100 mg Furosemide (Lasix -) 40 mg PO DAILY [facility] Last Admin: 10/30/16 10:35 Dose: 40 mg Guaifenesin (Robitussin -) 10 ml PO TID [facility] Last Admin: 10/30/16 15:02 Dose: 10 ml Heparin Sodium (Porcine) (Heparin -) 5,000 unit SQ TID [facility] Last Admin: 10/30/16 15:02 Dose: Not Given Losartan Potassium (Cozaar -) 25 mg PO DAILY [facility] Last Admin: 10/30/16 10:35 Dose: 25 mg Melatonin (Melatonin) 5 mg PO HS [facility] Methylprednisolone Sodium Succinate (Solu-Medrol -) 40 mg IVPB BID [facility] Last Admin: 10/30/16 10:34 Dose: 40 mg Metoprolol Tartrate (Lopressor -) 25 mg PO BID [facility] Last Admin: 10/30/16 10:35 Dose: 25 mg Nystatin (Nystop Powder -) 1 applic TP DAILY [facility] Last Admin: 10/30/16 15:02 Dose: 1 applic Pantoprazole Sodium (Protonix -) 40 mg PO BID [facility] Last Admin: 10/30/16 10:35 Dose: 40 mg Polyethylene Glycol (Miralax (For Daily Use) -) 17 gm PO BID [facility] Last Admin: 10/30/16 10:42 Dose: 17 gm Sodium Chloride ([place] -) 2 spray NS TID PRN PRN Reason: NASAL CONGESTION - Objective Vital Signs: Vital Signs Temperature 99 F 10/30/16 13:58 Pulse Rate 72 10/30/16 13:58 Respiratory Rate 20 10/30/16 13:58 Blood Pressure 107/50 10/30/16 13:58 O2 Sat by Pulse Oximetry (%) 95 10/29/16 21:00 Constitutional: Yes: No Distress, Calm Neck: Yes: Supple Cardiovascular: Yes: Pulse Irregular Respiratory: Yes: Regular, Diminished Gastrointestinal: Yes: Normal Bowel Sounds, Soft, Abdomen, Obese Edema: Yes Edema: LLE: 1+, RLE: 1+ Labs: CBC, BMP 10/30/16 06:00 10/30/16 06:00 INR, PTT INR 1.14 (0.82-1.09) D 10/29/16 11:00 Problem List - Problems (1) Aspiration into respiratory tract Code(s): T17.908A - UNSP FB IN RESP TRACT, PART UNSP CAUSING OTH INJURY, INIT Qualifiers: Encounter type: initial encounter Qualified Code(s): T17.908A - Unspecified foreign body in respiratory tract, part unspecified causing other injury, initial encounter (2) CO2 narcosis Code(s): R06.89 - OTHER ABNORMALITIES OF BREATHING (3) COPD (chronic obstructive pulmonary disease) Code(s): J44.9 - CHRONIC OBSTRUCTIVE PULMONARY DISEASE, UNSPECIFIED Qualifiers : COPD type: unspecified COPD Qualified Code(s): J44.9 - Chronic obstructive pulmonary disease, unspecified (4) Severe anemia Code(s): D64.9 - ANEMIA, UNSPECIFIED (5) Shortness of breath Code(s): R06.02 - SHORTNESS OF BREATH (6) Systolic and diastolic CHF, acute on chronic Code(s): I50.43 - ACUTE ON CHRONIC COMBINED SYSTOLIC AND DIASTOLIC HRT FAIL (7) Atrial fibrillation Code(s): I48.91 - UNSPECIFIED ATRIAL FIBRILLATION Qualifiers: Atrial fibrillation type: persistent Qualified Code(s): I48.1 - Persistent atrial fibrillation (8) CAD (coronary artery disease) Code(s): I25.10 - ATHSCL HEART DISEASE OF [place] CORONARY ARTERY W/O ANG PCTRS Qualifiers: Coronary Disease-Associated Artery/Lesion type: [place] artery [place] vs. transplanted heart: [place] heart Associated angina: without angina Qualified Code(s): I25.10 - Atherosclerotic heart disease of [place] coronary artery without angina pectoris (9) H/O atrial septal defect repair Code(s): Z98.89 - OTHER SPECIFIED POSTPROCEDURAL STATES * DO NOT USE * Z87.74 - PERSONAL HISTORY OF CONGENITAL MALFORM OF HEART AND CIRC SYS (10) Hypercholesterolemia Code(s): E78.0 - PURE HYPERCHOLESTEROLEMIA * DO NOT USE * (11) Hypertension Code(s): I10 - ESSENTIAL (PRIMARY) HYPERTENSION Qualifiers: Hypertension type: essential hypertension Qualified Code(s): I10 - Essential (primary) hypertension (12) Right bundle branch block Code(s): I45.10 - UNSPECIFIED RIGHT BUNDLE-BRANCH BLOCK Assessment/Plan 10/28/2015 Echo: Normal LV size and fxn, mod decreased RV fxn, severe LAE, mild- mod CHRISTIAN, mild MR, mild-mod TR, RVSP 50-60 mmHg, mod AR, HI 1. s/p acute hypercapneic respiratory failure acute exacerbation of COPD, underlying anemia improved 2. Resolved recurrent lower GI bleed etiology suspect internal hemorrhoidal, prior history of diverticular bleed post resection of a large rectal polyp 3. Chronic diastolic heart failure with moderate to severe degree of pulmonary HTN 4. 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 Persistent atrial fibrillation post Cryo-Maze and NATE ligation, [id number] off of A/C 6. HTN 7. Hypercholesterolemia 8. ASD post surgical repair 9. Reactive airway disease/COPD improved 10. 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 CKD PLAN: 1. Transfuse to maintain Hg equal or > 8.0 2. As outlined recommend withholding Coumadin therapy at this point indefinitely recognizing elevated stroke risk ([id number] score of 5) and h/o NATE ligation considering the above noted presentation, pending resolution 3. Monitor off antibiotics as per the primary team (+ Mycoplasma titer) 4. Continue Lasix 40 qd with close monitoring of renal function and electrolytes 5. Continue Lopressor 25 bid, hemodynamics permitting 6. Continue Cozaar 25 qd, hemodynamic permitting 7. Empiric steroid taper with GI protection per heme, BD, f/u flow cytometry and bone marrow biopsy 8. DVT prophlyaxis, wrap legs
[2016-10-30] MEDS: MELATONIN 5 MG TABLETS PO SCH ×2 (20:00→22:20)
[2016-10-30] MEDS: CHLORHEXIDINE GLUCONATE 4% CLEANSER FOR DECOLONIZATION TP SCH (22:09)
--- NOTE | 2016-10-30 22:29 | PN ---
Progress Note (short form) - Note Progress Note: patient seen and examined feels better Last Vital Signs Temp Pulse Resp BP Pulse Ox 98.9 F 75 20 110/45 95 10/30/16 18:00 10/30/16 18:00 10/30/16 18:00 10/30/16 18:00 10/30/16 09:00 Cor: RSR, No murmurs, No gallops Lungs: Clear to P&A Abd: Soft, Normal bowel sounds, No organomegaly Ext:stasis dermatitis Abnormal Lab Results 10/30/16 10/30/16 06:00 06:00 RBC 2.60 L Hgb 8.6 L Hct 26.4 L MCV 101.5 H RDW 20.2 H MPV 7.3 L Neutrophils % 86.5 H Lymphocytes % 4.3 L Chloride 95 L Carbon Dioxide 37 H Anion Gap 5 L BUN 35 H Random Glucose 136 H Total Bilirubin 1.5 H AST 14 L Albumin 2.9 L Home Medication List Medication Instructions Recorded Confirmed Type Losartan Potassium [Cozaar] 25 mg PO DAILY 10/18/16 10/22/16 History Metoprolol Succinate [Toprol Xl] 50 mg PO DAILY 10/18/16 10/22/16 History Warfarin Sodium [Coumadin] 2.5 mg PO DAILY 10/18/16 10/22/16 History Active Medications Generic Name Dose Route Start Last Admin Trade Name Freq PRN Reason Stop Dose Admin Albuterol Sulfate 1 amp 10/27/16 08:31 Ventolin 0.083% Nebulizer Soln - NEB Q4H PRN SHORT OF BREATH/WHEEZING Albuterol/Ipratropium 1 amp 10/27/16 12:00 10/30/16 17:27 Duoneb - NEB 1 amp QIDR [facility] Administration Chlorhexidine Gluconate 1 applic 10/27/16 22:00 10/30/16 22:09 Hibiclens For Decolonization - TP Not Given HS [facility] Docusate Sodium 100 mg 10/27/16 10:00 10/30/16 10:35 Colace - PO 100 mg DAILY [facility] Administration Furosemide 40 mg 10/27/16 10:00 10/30/16 10:35 Lasix - PO 40 mg DAILY [facility] Administration Guaifenesin 10 ml 10/30/16 09:15 10/30/16 22:21 Robitussin - PO 10 ml TID [facility] Administration Heparin Sodium (Porcine) 5,000 unit 10/27/16 14:00 10/30/16 22:21 Heparin - SQ 5,000 unit TID [facility] Administration Losartan Potassium 25 mg 10/27/16 10:00 10/30/16 10:35 Cozaar - PO 25 mg DAILY [facility] Administration Melatonin 5 mg 10/30/16 20:00 10/30/16 22:20 Melatonin PO 5 mg HS [facility] Administration Methylprednisolone Sodium Succinate 30 mg 10/30/16 22:00 10/30/16 22:21 Solu-Medrol - IVPB 30 mg BID [facility] Administration Metoprolol Tartrate 25 mg 10/27/16 10:00 10/30/16 22:21 Lopressor - PO 25 mg BID [facility] Administration Nystatin 1 applic 10/27/16 10:00 10/30/16 15:02 Nystop Powder - TP 1 applic DAILY [facility] Administration Pantoprazole Sodium 40 mg 10/30/16 10:00 10/30/16 22:21 Protonix - PO 40 mg BID [facility] Administration Polyethylene Glycol 17 gm 10/27/16 10:00 10/30/16 22:19 Miralax (For Daily Use) - PO 17 gm BID [facility] Administration Sodium Chloride 2 spray 10/30/16 15:47 [place] Nasal [place] - NS TID PRN NASAL CONGESTION A/P 86 y/o patient with anemia, + benson agglutinin + cold agglutinin nl LDH/haptoglobin ? extravascular hemolysis will check u/s abdomen + mycoplasma titers--s/o recent mycoplasma inf.--discussed with ID B12/TSH--nl IgM monoclonal protein : SFLCA --Lambda light chains--1000s On steroids--solumedrol 80mg IVPB daily--change to 30mg ivpb bid discussed with patient --low grade autoimmune process trigerred by mycoplasma inf. stable on steroids stool occult +/ coumadin on hold U/S--fatty liver/splenomegaly Flow shows --? monoclonal B cell population. Lambda light chains elevated in 1000s, ratio 0.03 await bmbx/ct scans
[2016-10-31] MEDS: ALBUTEROL SO4 2.5/IPRATROPIUM 0.5 INH SOL 3 ML VIAL.NEB. NEB SCH ×5 (00:10→23:20)
[2016-10-31] MEDS: HEPARIN NA (PORCINE) 5,000 UNITS/ML 1ML VIAL SQ SCH ×3 (05:58→23:15)
[2016-10-31] MEDS: guaiFENesin 200 MG/10 ML 10 ML UNIT-DOSE CUPS PO SCH ×3 (05:59→23:13)
[2016-10-31 08:10] LABS: BASOPHIL 0.1 % (0-2.0); MCHC 33.5 g/dl (32.0-35.9); MEAN CELL VOLUME 101.5 fl (80-96); MEAN PLT VOLUME 7.4 fl (7.5-11.1); NEUTROPHILS 86.8 % (42.8-82.8); PLATELET COUNT 150 K/MM3 (134-434); RDW 20.4 % (11.9-15.9); WHITE BLOOD COUNT 3.9 K/mm3 (4.0-10.0)
[2016-10-31 08:34] LABS: ALBUMIN 2.8 g/dl (3.4-5.0); CALCIUM 8.4 mg/dL (8.5-10.1); MAGNESIUM 2.2 mg/dL (1.8-2.4)
[2016-10-31 08:37] LABS: BILIRUBIN,TOTAL 1.6 mg/dL (0.2-1.0); COCKROFT - GAULT 52.65; CREATININE 1.3 mg/dL (0.7-1.3); TOT PROT 6.8 g/dl (6.4-8.2)
[2016-10-31] MEDS: LOSARTAN POTASSIUM 25 MG TABLET PO SCH (10:01)
[2016-10-31] MEDS: methylPREDNISolone NA SUCC 40 MG/1 ML VIAL IVPB SCH ×2 (10:01→23:13)
[2016-10-31] MEDS: FUROSEMIDE 40 MG TABLET (FP) PO SCH (10:01)
[2016-10-31] MEDS: DOCUSATE SODIUM 100 MG CAPSULE (FP) PO SCH (10:01)
[2016-10-31] MEDS: PANTOPRAZOLE 40 MG TABLET (FP) PO SCH ×2 (10:01→23:13)
[2016-10-31] MEDS: METOPROLOL TARTRATE 25 MG TABLET (FP) PO SCH ×2 (10:01→23:13)
[2016-10-31] MEDS: NYSTATIN POWDER 100,000 UNITS/GM - 15 GM TOPICAL POWDER TP SCH (10:01)
[2016-10-31] MEDS: POLYETHYLENE GLYCOL 3350 119 GM BTL PO SCH ×2 (10:01→23:23)
--- NOTE | 2016-10-31 10:07 | PN ---
Progress Note, Physician History of Present Illness: PULMONARY ALERT,COMFORTABLE,STILL C/O COUGH,-CP. - Current Medication List Current Medications: Active Medications Albuterol Sulfate (Ventolin 0.083% Nebulizer Soln -) 1 amp NEB Q4H PRN PRN Reason: SHORT OF BREATH/WHEEZING Albuterol/Ipratropium (Duoneb -) 1 amp NEB QIDR [facility] Last Admin: 10/31/16 06:32 Dose: 1 amp Chlorhexidine Gluconate (Hibiclens For Decolonization -) 1 applic TP HS [facility] Last Admin: 10/30/16 22:09 Dose: Not Given Docusate Sodium (Colace -) 100 mg PO DAILY [facility] Last Admin: 10/30/16 10:35 Dose: 100 mg Furosemide (Lasix -) 40 mg PO DAILY [facility] Last Admin: 10/30/16 10:35 Dose: 40 mg Guaifenesin (Robitussin -) 10 ml PO TID [facility] Last Admin: 10/31/16 05:59 Dose: 10 ml Heparin Sodium (Porcine) (Heparin -) 5,000 unit SQ TID [facility] Last Admin: 10/31/16 05:58 Dose: 5,000 unit Losartan Potassium (Cozaar -) 25 mg PO DAILY [facility] Last Admin: 10/30/16 10:35 Dose: 25 mg Melatonin (Melatonin) 5 mg PO HS [facility] Last Admin: 10/30/16 22:20 Dose: 5 mg Methylprednisolone Sodium Succinate (Solu-Medrol -) 30 mg IVPB BID [facility] Last Admin: 10/30/16 22:21 Dose: 30 mg Metoprolol Tartrate (Lopressor -) 25 mg PO BID [facility] Last Admin: 10/30/16 22:21 Dose: 25 mg Nystatin (Nystop Powder -) 1 applic TP DAILY [facility] Last Admin: 10/30/16 15:02 Dose: 1 applic Pantoprazole Sodium (Protonix -) 40 mg PO BID [facility] Last Admin: 10/30/16 22:21 Dose: 40 mg Polyethylene Glycol (Miralax (For Daily Use) -) 17 gm PO BID [facility] Last Admin: 10/30/16 22:19 Dose: 17 gm Sodium Chloride ([place] Nasal [place] -) 2 spray NS TID PRN PRN Reason: NASAL CONGESTION - Objective Vital Signs: Vital Signs Temperature 97.7 F 10/31/16 05:00 Pulse Rate 78 10/31/16 05:00 Respiratory Rate 19 10/31/16 05:00 Blood Pressure 122/52 10/31/16 05:00 O2 Sat by Pulse Oximetry (%) 95 10/31/16 05:00 Constitutional: Yes: Well Nourished, Calm Eyes: Yes: WNL HENT: Yes: WNL Neck: Yes: WNL Cardiovascular: Yes: Regular Rate and Rhythm, S1, S2 Respiratory: Yes: Wheezes (SCATTERED JIMENEZ WHEEZES) Gastrointestinal: Yes: Normal Bowel Sounds, Soft Extremities: Yes: WNL Edema: Yes Labs: CBC, BMP 10/31/16 06:00 10/31/16 06:00 INR, PTT INR 1.14 (0.82-1.09) D 10/29/16 11:00 Problem List - Problems (1) Aspiration into respiratory tract Code(s): T17.908A - UNSP FB IN RESP TRACT, PART UNSP CAUSING OTH INJURY, INIT Qualifiers: Encounter type: initial encounter Qualified Code(s): T17.908A - Unspecified foreign body in respiratory tract, part unspecified causing other injury, initial encounter (2) CO2 narcosis Code(s): R06.89 - OTHER ABNORMALITIES OF BREATHING (3) COPD (chronic obstructive pulmonary disease) Code(s): J44.9 - CHRONIC OBSTRUCTIVE PULMONARY DISEASE, UNSPECIFIED Qualifiers : COPD type: unspecified COPD Qualified Code(s): J44.9 - Chronic obstructive pulmonary disease, unspecified (4) Anemia Code(s): D64.9 - ANEMIA, UNSPECIFIED Qualifiers: Anemia type: iron deficiency (5) GI bleed Code(s): K92.2 - GASTROINTESTINAL HEMORRHAGE, UNSPECIFIED Qualifiers: GI bleed type/associated pathology: diverticulosis Qualified Code(s) : K57.91 - Diverticulosis of intestine, part unspecified, without perforation or abscess with bleeding (6) Severe anemia Code(s): D64.9 - ANEMIA, UNSPECIFIED (7) Shortness of breath Code(s): R06.02 - SHORTNESS OF BREATH (8) Systolic and diastolic CHF, acute on chronic Code(s): I50.43 - ACUTE ON CHRONIC COMBINED SYSTOLIC AND DIASTOLIC HRT FAIL (9) Atrial fibrillation Code(s): I48.91 - UNSPECIFIED ATRIAL FIBRILLATION Qualifiers: Atrial fibrillation type: persistent Qualified Code(s): I48.1 - Persistent atrial fibrillation (10) CAD (coronary artery disease) Code(s): I25.10 - ATHSCL HEART DISEASE OF [place] CORONARY ARTERY W/O ANG PCTRS Qualifiers: Coronary Disease-Associated Artery/Lesion type: [place] artery [place] vs. transplanted heart: [place] heart Associated angina: without angina Qualified Code(s): I25.10 - Atherosclerotic heart disease of [place] coronary artery without angina pectoris (11) Hypercholesterolemia Code(s): E78.0 - PURE HYPERCHOLESTEROLEMIA * DO NOT USE * (12) Hypertension Code(s): I10 - ESSENTIAL (PRIMARY) HYPERTENSION Qualifiers: Hypertension type: essential hypertension Qualified Code(s): I10 - Essential (primary) hypertension Assessment/Plan ASSESSMENT AND PLAN: s/p Acute Hypercapneic Respiratory Failure improved Acute COPD Exacerbation improved LV Diastolic Dysfunction Pulmonary HTN CAD Atrial Fibrillation HTN CKD ASD s/p repair r/o myeloproliferative disorder - continue medrol bid - inhaled bronchodilators - monitor CBC - transfuse as needed - lasix - DVT/GI prophylaxis - anti-tussives DR ANAND
--- NOTE | 2016-10-31 11:45 | PN ---
Progress Note (short form) - Note Progress Note: Progress Note: patient seen and examined feels better mild cough Vital Signs Period Temp Pulse Resp BP Sys/Brian Pulse Ox Last 24 Hr 97.7 F-99 F 72-90 18-20 96-128/45-73 95-98 Cor: RSR, No murmurs, No gallops Lungs: Clear to P&A Abd: Soft, Normal bowel sounds, No organomegaly Ext:stasis dermatitis Active Medications Generic Name Dose Route Start Last Admin Trade Name Freq PRN Reason Stop Dose Admin Albuterol Sulfate 1 amp 10/27/16 08:31 Ventolin 0.083% Nebulizer Soln - NEB Q4H PRN SHORT OF BREATH/WHEEZING Albuterol/Ipratropium 1 amp 10/27/16 12:00 10/31/16 06:32 Duoneb - NEB 1 amp QIDR [facility] Administration Chlorhexidine Gluconate 1 applic 10/27/16 22:00 10/30/16 22:09 Hibiclens For Decolonization - TP Not Given HS [facility] Docusate Sodium 100 mg 10/27/16 10:00 10/31/16 10:01 Colace - PO 100 mg DAILY [facility] Administration Furosemide 40 mg 10/27/16 10:00 10/31/16 10:01 Lasix - PO 40 mg DAILY [facility] Administration Guaifenesin 10 ml 10/30/16 09:15 10/31/16 05:59 Robitussin - PO 10 ml TID [facility] Administration Guaifenesin/Codeine Phosphate 5 ml 10/31/16 22:00 Robitussin Ac - PO HS [facility] Heparin Sodium (Porcine) 5,000 unit 10/27/16 14:00 10/31/16 05:58 Heparin - SQ 5,000 unit TID [facility] Administration Insulin Aspart 1 vial 10/31/16 11:00 Novolog Vial Sliding Scale - SQ ACHS [facility] Protocol Losartan Potassium 25 mg 10/27/16 10:00 10/31/16 10:01 Cozaar - PO 25 mg DAILY [facility] Administration Melatonin 5 mg 10/30/16 20:00 10/30/16 22:20 Melatonin PO 5 mg HS [facility] Administration Methylprednisolone Sodium Succinate 30 mg 10/30/16 22:00 10/31/16 10:01 Solu-Medrol - IVPB 30 mg BID [facility] Administration Metoprolol Tartrate 25 mg 10/27/16 10:00 10/31/16 10:01 Lopressor - PO 25 mg BID [facility] Administration Nystatin 1 applic 10/27/16 10:00 10/31/16 10:01 Nystop Powder - TP 1 applic DAILY [facility] Administration Pantoprazole Sodium 40 mg 10/30/16 10:00 10/31/16 10:01 Protonix - PO 40 mg BID [facility] Administration Polyethylene Glycol 17 gm 10/27/16 10:00 10/31/16 10:01 Miralax (For Daily Use) - PO 17 gm BID [facility] Administration Sodium Chloride 2 spray 10/30/16 15:47 [place] Nasal [place] - NS TID PRN NASAL CONGESTION CBC, BMP 10/31/16 06:00 10/31/16 06:00 A/P 86 y/o patient with anemia, + benson agglutinin + cold agglutinin nl LDH/haptoglobin ? extravascular hemolysis IgM monoclonal protein : SFLCA --Lambda light chains--1000s Probably [place],BM will clarify whether he has more of a lymphoplasmacytic picture and whether he may be a candidate for ibrutinib [but need for AC and A fib may preclude this] a/w BM biopsy can send off [id number] mutation in peripheral blood On steroids--decreased to 30mg ivpb bid U/S--fatty liver/splenomegaly Flow shows --? monoclonal B cell population. Lambda light chains elevated in 1000s, ratio 0.03 await bmbx/ct scans
[2016-10-31] MEDS: INSULIN SLIDING SCALE (NOVOLOG) 1 VIAL SQ SCH ×3 (11:53→23:14)
--- NOTE | 2016-10-31 13:36 | PN ---
Physical Exam: SUBJECTIVE: Patient seen and examined. States he feels well, denies shortness of breath, denies any chest pain or any other discomfort. OBJECTIVE: + mild expiratory wheezing, on 2 liters of oxygen Sitting up in the bed, no dyspnea noted on exam +2 bilateral lower ext. pitting edema Had episode of epistaxis on left nare, now resolved Vital Signs Period Temp Pulse Resp BP Sys/Brian Pulse Ox Last 24 Hr 97.7 F-99 F 72-90 18-20 96-128/45-73 95-98 GENERAL: The patient is awake, alert, and fully oriented, in no acute distress. HEAD: Normal with no signs of trauma. EYES: PERRL, extraocular movements intact, sclera anicteric, conjunctiva clear. No ptosis. ENT: Ears normal, nares patent, oropharynx clear without exudates, moist mucous membranes. NECK: Trachea midline, full range of motion, supple. LUNGS: Breath sounds equal, clear/diminished to auscultation bilaterally, mild scattered wheezes posteriorly, no crackles, no accessory muscle use. ABDOMEN: Soft, nontender, nondistended, normoactive bowel sounds, no guarding, no rebound, no hepatosplenomegaly, no masses. EXTREMITIES: Bilateral lower extremities with +1 pitting edema NEUROLOGICAL: Normal speech, gait not observed. PSYCH: Normal mood, normal affect. SKIN: Warm, dry, normal turgor, no rashes or lesions noted Laboratory Results - last 24 hr 10/26/16 10/31/16 10/31/16 05:50 05:28 06:00 WBC 3.9 L RBC 2.43 L Hgb 8.3 L Hct 24.7 L MCV 101.5 H MCHC 33.5 RDW 20.4 H Plt Count 150 MPV 7.4 L Neutrophils % 86.8 H Lymphocytes % 4.7 L Monocytes % 8.4 Eosinophils % 0.0 Basophils % 0.1 ESR Sodium Potassium Chloride Carbon Dioxide Anion Gap BUN Creatinine Creat Clearance w eGFR POC Glucometer 162 Random Glucose Hemoglobin A1c % Calcium Magnesium Total Bilirubin AST ALT Alkaline Phosphatase C-Reactive Protein Total Protein Albumin Serum Cryoglobulins 10/31/16 10/31/16 10/31/16 06:00 06:00 06:00 WBC RBC Hgb Hct MCV MCHC RDW Plt Count MPV Neutrophils % Lymphocytes % Monocytes % Eosinophils % Basophils % ESR 135 H Sodium 134 L Potassium 4.8 Chloride 93 L Carbon Dioxide 34 H Anion Gap 7 L BUN 39 H Creatinine 1.3 Creat Clearance w eGFR 52.22 POC Glucometer Random Glucose 135 H Hemoglobin A1c % Calcium 8.4 L Magnesium 2.2 Total Bilirubin 1.6 H AST 12 L ALT 28 Alkaline Phosphatase 66 C-Reactive Protein 0.3 Total Protein 6.8 Albumin 2.8 L Serum Cryoglobulins 10/31/16 10/31/16 06:00 11:41 WBC RBC Hgb Hct MCV MCHC RDW Plt Count MPV Neutrophils % Lymphocytes % Monocytes % Eosinophils % Basophils % ESR Sodium Potassium Chloride Carbon Dioxide Anion Gap BUN Creatinine Creat Clearance w eGFR POC Glucometer 135 Random Glucose Hemoglobin A1c % 6.2 H Calcium Magnesium Total Bilirubin AST ALT Alkaline Phosphatase C-Reactive Protein Total Protein Albumin Serum Cryoglobulins Active Medications Generic Name Dose Route Start Last Admin Trade Name Freq PRN Reason Stop Dose Admin Albuterol Sulfate 1 amp 10/27/16 08:31 Ventolin 0.083% Nebulizer Soln - NEB Q4H PRN SHORT OF BREATH/WHEEZING Albuterol/Ipratropium 1 amp 10/27/16 12:00 10/31/16 06:32 Duoneb - NEB 1 amp QIDR RUBIA Administration Chlorhexidine Gluconate 1 applic 10/27/16 22:00 10/30/16 22:09 Hibiclens For Decolonization - TP Not Given HS RUBIA Docusate Sodium 100 mg 10/27/16 10:00 10/31/16 10:01 Colace - PO 100 mg DAILY RUBIA Administration Furosemide 40 mg 10/27/16 10:00 10/31/16 10:01 Lasix - PO 40 mg DAILY RUBIA Administration Guaifenesin 10 ml 10/30/16 09:15 10/31/16 05:59 Robitussin - PO 10 ml TID RUBIA Administration Guaifenesin/Codeine Phosphate 5 ml 10/31/16 22:00 Robitussin Ac - PO HS RUBIA Heparin Sodium (Porcine) 5,000 unit 10/27/16 14:00 10/31/16 05:58 Heparin - SQ 5,000 unit TID RUBIA Administration Insulin Aspart 1 vial 10/31/16 11:00 10/31/16 11:53 Novolog Vial Sliding Scale - SQ Not Given ACHS [facility] Protocol Losartan Potassium 25 mg 10/27/16 10:00 10/31/16 10:01 Cozaar - PO 25 mg DAILY RUBIA Administration Melatonin 5 mg 10/30/16 20:00 10/30/16 22:20 Melatonin PO 5 mg HS RUBIA Administration Methylprednisolone Sodium Succinate 30 mg 10/30/16 22:00 10/31/16 10:01 Solu-Medrol - IVPB 30 mg BID RUBIA Administration Metoprolol Tartrate 25 mg 10/27/16 10:00 10/31/16 10:01 Lopressor - PO 25 mg BID RUBIA Administration Nystatin 1 applic 10/27/16 10:00 10/31/16 10:01 Nystop Powder - TP 1 applic DAILY RUBIA Administration Pantoprazole Sodium 40 mg 10/30/16 10:00 10/31/16 10:01 Protonix - PO 40 mg BID RUBIA Administration Polyethylene Glycol 17 gm 10/27/16 10:00 10/31/16 10:01 Miralax (For Daily Use) - PO 17 gm BID RUBIA Administration Sodium Chloride 2 spray 10/30/16 15:47 [place] Nasal [place] - NS TID PRN NASAL CONGESTION ASSESSMENT/PLAN: Patient is an 86 year old male with a significant past medical history of asthma , anemia, congestive heart failure, atrial fibrillation (on Coumadin), CAD, COPD , pulmonary hypertension and GI bleed. He presented to the ED on 10/22/2016 with COPD and carbon dioxide narcosis. Pulmonary: COPD: Acute hypercapnic and hypoxic respiratory failure - improving Assessment/Plan: tolerating oxygen @ 2 liter nasal cannula, sats @96% Breathing is improving, patient continues to deny shortness of breath on exam No conversational dyspnea noted On Solumedrol taper, Albuterol QID scheduled Monitor respiratory status Pulmonary hypertension Assessment/Plan: On Lasix 40mg daily Cardiology: Atrial Fibrillation Assessment/Plan: On home Coumadin, which is currently on hold as per hematology/ cardiology Rate control with Lopressor 25mg PO BID Monitor on tele SCDs when in bed Congestive heart failure Assessment/Plan: On Lasix 40mg daily On metoprolol 25mg PO BID supplemental humidified oxygen duonebs Hematology: Anemia - likely chronic Assessment/Plan: hmg/hct continues to be low stable CBC daily hematology following for hematologic disorder patient is s/p biopsy on Tuesday Oncologist notes reviewed Hemolysis vs. bone marrow suppression Assessment/Plan: Heme following for likely hematologic disorder and neutropenia Awaiting results of bone marrow biopsy Epistaxis - left nare - now resolved Assessment/Plan: epistaxis on 10/30 On humidified oxygen and saline nasal spray TID If continues to have epistaxis, consider ENT consult GI: GI bleed - with no overt signs of bleeding Assessment/Plan: Stool occult positive Monitor hmg/hct On Protonix 40mg BID No GI discomfort F.E.N. Fluids: tolerating PO Electrolytes: monitor with BMP Nutrition: low sodium, regular diet Prophylaxis: DVT: SCDs, Heparin TID while Coumadin is on hold GI: Protonix 40mg BID Disposition: Requires inpatient hospitalization. Full code. Visit type - Emergency Visit Emergency Visit: Yes ED Registration Date: 10/22/16 Care time: The patient presented to the Emergency Department on the above date and was hospitalized for further evaluation of their emergent condition. - New Patient This patient is new to me today: No - Critical Care Critical Care patient: No - Discharge Referral Referred to [facility] Med [facility] No
--- NOTE | 2016-10-31 13:54 | PN ---
Progress Note, Physician History of Present Illness: Comfortable OOB to chair. 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 - Current Medication List Current Medications: Active Medications Albuterol Sulfate (Ventolin 0.083% Nebulizer Soln -) 1 amp NEB Q4H PRN PRN Reason: SHORT OF BREATH/WHEEZING Albuterol/Ipratropium (Duoneb -) 1 amp NEB QIDR [facility] Last Admin: 10/31/16 06:32 Dose: 1 amp Chlorhexidine Gluconate (Hibiclens For Decolonization -) 1 applic TP HS [facility] Last Admin: 10/30/16 22:09 Dose: Not Given Docusate Sodium (Colace -) 100 mg PO DAILY [facility] Last Admin: 10/31/16 10:01 Dose: 100 mg Furosemide (Lasix -) 40 mg PO DAILY [facility] Last Admin: 10/31/16 10:01 Dose: 40 mg Guaifenesin (Robitussin -) 10 ml PO TID [facility] Last Admin: 10/31/16 05:59 Dose: 10 ml Guaifenesin/Codeine Phosphate (Robitussin Ac -) 5 ml PO [facility] Heparin Sodium (Porcine) (Heparin -) 5,000 unit SQ TID [facility] Last Admin: 10/31/16 05:58 Dose: 5,000 unit Insulin Aspart (Novolog Vial Sliding Scale -) 1 vial SQ ACHS [facility] PRN Reason: Protocol Last Admin: 10/31/16 11:53 Dose: Not Given Losartan Potassium (Cozaar -) 25 mg PO DAILY [facility] Last Admin: 10/31/16 10:01 Dose: 25 mg Melatonin (Melatonin) 5 mg PO HS [facility] Last Admin: 10/30/16 22:20 Dose: 5 mg Methylprednisolone Sodium Succinate (Solu-Medrol -) 30 mg IVPB BID [facility] Last Admin: 10/31/16 10:01 Dose: 30 mg Metoprolol Tartrate (Lopressor -) 25 mg PO BID [facility] Last Admin: 10/31/16 10:01 Dose: 25 mg Nystatin (Nystop Powder -) 1 applic TP DAILY [facility] Last Admin: 10/31/16 10:01 Dose: 1 applic Pantoprazole Sodium (Protonix -) 40 mg PO BID [facility] Last Admin: 10/31/16 10:01 Dose: 40 mg Polyethylene Glycol (Miralax (For Daily Use) -) 17 gm PO BID [facility] Last Admin: 10/31/16 10:01 Dose: 17 gm Sodium Chloride ([place] Nasal [place] -) 2 spray NS TID PRN PRN Reason: NASAL CONGESTION - Objective Vital Signs: Vital Signs Temperature 98 F 10/31/16 09:00 Pulse Rate 90 10/31/16 09:00 Respiratory Rate 18 10/31/16 09:00 Blood Pressure 126/50 10/31/16 09:00 O2 Sat by Pulse Oximetry (%) 95 10/31/16 09:00 Constitutional: Yes: No Distress, Calm Neck: Yes: Supple Cardiovascular: Yes: Pulse Irregular Respiratory: Yes: Regular, Diminished Gastrointestinal: Yes: Normal Bowel Sounds, Soft, Abdomen, Obese Edema: Yes Edema: LLE: 1+, RLE: 1+ Labs: CBC, BMP 10/31/16 06:00 10/31/16 06:00 INR, PTT INR 1.14 (0.82-1.09) D 10/29/16 11:00 Problem List - Problems (1) COPD (chronic obstructive pulmonary disease) Code(s): J44.9 - CHRONIC OBSTRUCTIVE PULMONARY DISEASE, UNSPECIFIED Qualifiers : COPD type: unspecified COPD Qualified Code(s): J44.9 - Chronic obstructive pulmonary disease, unspecified (2) Severe anemia Code(s): D64.9 - ANEMIA, UNSPECIFIED (3) Shortness of breath Code(s): R06.02 - SHORTNESS OF BREATH (4) Systolic and diastolic CHF, acute on chronic Code(s): I50.43 - ACUTE ON CHRONIC COMBINED SYSTOLIC AND DIASTOLIC HRT FAIL (5) Atrial fibrillation Code(s): I48.91 - UNSPECIFIED ATRIAL FIBRILLATION Qualifiers: Atrial fibrillation type: persistent Qualified Code(s): I48.1 - Persistent atrial fibrillation (6) CAD (coronary artery disease) Code(s): I25.10 - ATHSCL HEART DISEASE OF [place] CORONARY ARTERY W/O ANG PCTRS Qualifiers: Coronary Disease-Associated Artery/Lesion type: [place] artery [place] vs. transplanted heart: [place] heart Associated angina: without angina Qualified Code(s): I25.10 - Atherosclerotic heart disease of [place] coronary artery without angina pectoris (7) H/O atrial septal defect repair Code(s): Z98.89 - OTHER SPECIFIED POSTPROCEDURAL STATES * DO NOT USE * Z87.74 - PERSONAL HISTORY OF CONGENITAL MALFORM OF HEART AND CIRC SYS (8) Hypercholesterolemia Code(s): E78.0 - PURE HYPERCHOLESTEROLEMIA * DO NOT USE * (9) Hypertension Code(s): I10 - ESSENTIAL (PRIMARY) HYPERTENSION Qualifiers: Hypertension type: essential hypertension Qualified Code(s): I10 - Essential (primary) hypertension (10) Right bundle branch block Code(s): I45.10 - UNSPECIFIED RIGHT BUNDLE-BRANCH BLOCK Assessment/Plan 10/28/2015 Echo: Normal LV size and fxn, mod decreased RV fxn, severe LAE, mild- mod CHRISTIAN, mild MR, mild-mod TR, RVSP 50-60 mmHg, mod AR, NC 1. s/p acute hypercapneic respiratory failure acute exacerbation of COPD, underlying anemia improved 2. Resolved recurrent lower GI bleed etiology suspect internal hemorrhoidal, prior history of diverticular bleed post resection of a large rectal polyp 3. Chronic diastolic heart failure with moderate to severe degree of pulmonary HTN 4. 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 Persistent atrial fibrillation post Cryo-Maze and NATE ligation, [id number] off of A/C 6. HTN 7. Hypercholesterolemia 8. ASD post surgical repair 9. Reactive airway disease/COPD improved 10. 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 CKD PLAN: 1. Transfuse to maintain Hg equal or > 8.0 2. As outlined recommend withholding Coumadin therapy at this point indefinitely recognizing elevated stroke risk ([id number] score of 5) and h/o NATE ligation considering the above noted presentation, pending resolution 3. Monitor off antibiotics as per the primary team (+ Mycoplasma titer) 4. Continue Lasix 40 qd with close monitoring of renal function and electrolytes 5. Continue Lopressor 25 bid, hemodynamics permitting 6. Continue Cozaar 25 qd, hemodynamic permitting 7. Empiric steroid taper with GI protection per heme, BD, flow cytometry shows possible monoclonal B cells, await bone marrow biopsy results 8. DVT prophylaxis, wrap legs
[2016-10-31] MEDS: guaiFENesin/CODEINE 5 ML UNIT-DOSE CUPS PO SCH (23:13)
[2016-10-31] MEDS: MELATONIN 5 MG TABLETS PO SCH (23:14)
[2016-10-31] MEDS: CHLORHEXIDINE GLUCONATE 4% CLEANSER FOR DECOLONIZATION TP SCH (23:35)
[2016-11-01] MEDS: HEPARIN NA (PORCINE) 5,000 UNITS/ML 1ML VIAL SQ SCH ×4 (06:18→22:45)
[2016-11-01] MEDS: guaiFENesin 200 MG/10 ML 10 ML UNIT-DOSE CUPS PO SCH ×3 (06:19→22:41)
[2016-11-01] MEDS: INSULIN SLIDING SCALE (NOVOLOG) 1 VIAL SQ SCH ×4 (06:19→22:40)
[2016-11-01] MEDS: ALBUTEROL SO4 2.5/IPRATROPIUM 0.5 INH SOL 3 ML VIAL.NEB. NEB SCH ×2 (06:39→11:18)
[2016-11-01 08:16] LABS: MCH 33.5 pg (25.7-33.7); MCHC 32.8 g/dl (32.0-35.9); MEAN CELL VOLUME 102.1 fl (80-96); MEAN PLT VOLUME 7.5 fl (7.5-11.1); NEUTROPHILS 89.8 % (42.8-82.8); PLATELET COUNT 149 K/MM3 (134-434); RDW 20.3 % (11.9-15.9); WHITE BLOOD COUNT 3.9 K/mm3 (4.0-10.0)
--- NOTE | 2016-11-01 08:38 | PN ---
Progress Note, Physician Chief Complaint: Feels better today History of Present Illness: Patient was seen and examined. Awake and alert. Sitting in chair. Chart was reviewed Denies chest pain or palpitations Less SOB - Current Medication List Current Medications: Active Medications Albuterol/Ipratropium (Duoneb -) 1 amp NEB QIDR [facility] Last Admin: 11/01/16 06:39 Dose: 1 amp Chlorhexidine Gluconate (Hibiclens For Decolonization -) 1 applic TP HS [facility] Last Admin: 10/31/16 23:35 Dose: Not Given Docusate Sodium (Colace -) 100 mg PO DAILY [facility] Last Admin: 10/31/16 10:01 Dose: 100 mg Furosemide (Lasix -) 40 mg PO DAILY [facility] Last Admin: 10/31/16 10:01 Dose: 40 mg Guaifenesin (Robitussin -) 10 ml PO TID [facility] Last Admin: 11/01/16 06:19 Dose: 10 ml Guaifenesin/Codeine Phosphate (Robitussin Ac -) 5 ml PO HS [facility] Last Admin: 10/31/16 23:13 Dose: 5 ml Heparin Sodium (Porcine) (Heparin -) 5,000 unit SQ TID [facility] Last Admin: 11/01/16 06:18 Dose: 5,000 unit Insulin Aspart (Novolog Vial Sliding Scale -) 1 vial SQ ACHS [facility] PRN Reason: Protocol Last Admin: 11/01/16 06:19 Dose: Not Given Losartan Potassium (Cozaar -) 25 mg PO DAILY [facility] Last Admin: 10/31/16 10:01 Dose: 25 mg Melatonin (Melatonin) 5 mg PO HS [facility] Last Admin: 10/31/16 23:14 Dose: 5 mg Methylprednisolone Sodium Succinate (Solu-Medrol -) 30 mg IVPB BID [facility] Last Admin: 10/31/16 23:13 Dose: 30 mg Metoprolol Tartrate (Lopressor -) 25 mg PO BID [facility] Last Admin: 10/31/16 23:13 Dose: 25 mg Nystatin (Nystop Powder -) 1 applic TP DAILY [facility] Last Admin: 10/31/16 10:01 Dose: 1 applic Pantoprazole Sodium (Protonix -) 40 mg PO BID [facility] Last Admin: 10/31/16 23:13 Dose: 40 mg Polyethylene Glycol (Miralax (For Daily Use) -) 17 gm PO BID [facility] Last Admin: 10/31/16 23:23 Dose: 17 gm Sodium Chloride ([place] Nasal [place] -) 2 spray NS TID PRN PRN Reason: NASAL CONGESTION - Objective Vital Signs: Vital Signs Temperature 97.2 F L 11/01/16 01:39 Pulse Rate 54 L 11/01/16 05:00 Respiratory Rate 20 11/01/16 05:00 Blood Pressure 100/43 11/01/16 05:00 O2 Sat by Pulse Oximetry (%) 98 10/31/16 21:00 Neck: Yes: Supple Cardiovascular: Yes: Pulse Irregular, S1, S2 Respiratory: Yes: Diminished Gastrointestinal: Yes: Normal Bowel Sounds, Soft. No: Tenderness Edema: Yes Edema: LLE: 1+, RLE: 1+ Labs: CBC, BMP 11/01/16 06:18 Problem List - Problems (1) COPD (chronic obstructive pulmonary disease) Code(s): J44.9 - CHRONIC OBSTRUCTIVE PULMONARY DISEASE, UNSPECIFIED Qualifiers : COPD type: unspecified COPD Qualified Code(s): J44.9 - Chronic obstructive pulmonary disease, unspecified (2) Anemia Code(s): D64.9 - ANEMIA, UNSPECIFIED Qualifiers: Anemia type: iron deficiency (3) GI bleed Code(s): K92.2 - GASTROINTESTINAL HEMORRHAGE, UNSPECIFIED Qualifiers: GI bleed type/associated pathology: diverticulosis Qualified Code(s) : K57.91 - Diverticulosis of intestine, part unspecified, without perforation or abscess with bleeding (4) Shortness of breath Code(s): R06.02 - SHORTNESS OF BREATH (5) Systolic and diastolic CHF, acute on chronic Code(s): I50.43 - ACUTE ON CHRONIC COMBINED SYSTOLIC AND DIASTOLIC HRT FAIL (6) Atrial fibrillation Code(s): I48.91 - UNSPECIFIED ATRIAL FIBRILLATION Qualifiers: Atrial fibrillation type: persistent Qualified Code(s): I48.1 - Persistent atrial fibrillation (7) CAD (coronary artery disease) Code(s): I25.10 - ATHSCL HEART DISEASE OF [place] CORONARY ARTERY W/O ANG PCTRS Qualifiers: Coronary Disease-Associated Artery/Lesion type: [place] artery [place] vs. transplanted heart: [place] heart Associated angina: without angina Qualified Code(s): I25.10 - Atherosclerotic heart disease of [place] coronary artery without angina pectoris (8) H/O atrial septal defect repair Code(s): Z98.89 - OTHER SPECIFIED POSTPROCEDURAL STATES * DO NOT USE * Z87.74 - PERSONAL HISTORY OF CONGENITAL MALFORM OF HEART AND CIRC SYS (9) Hypercholesterolemia Code(s): E78.0 - PURE HYPERCHOLESTEROLEMIA * DO NOT USE * (10) Hypertension Code(s): I10 - ESSENTIAL (PRIMARY) HYPERTENSION Qualifiers: Hypertension type: essential hypertension Qualified Code(s): I10 - Essential (primary) hypertension (11) Reactive airway disease Code(s): J45.909 - UNSPECIFIED ASTHMA, UNCOMPLICATED Qualifiers: Asthma severity: unspecified severity Asthma complication type: uncomplicated Qualified Code(s): J45.909 - Unspecified asthma, uncomplicated Assessment/Plan 1. Status post acute hypercapneic respiratory failure acute exacerbation of COPD and underlying anemia improved 2. Resolved recurrent lower GI bleed - suspect internal hemorrhoid, prior history of diverticular bleed post resection of a large rectal polyp 3. Chronic diastolic heart failure with moderate to severe degree of pulmonary HTN 4. 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 Persistent atrial fibrillation post Cryo-Maze and NATE ligation - [id number] 6. HTN 7. Hypercholesterolemia 8. ASD post surgical repair 9. Reactive airway disease/COPD improved 10. 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 CKD PLAN: 1. Transfuse to maintain Hg equal or > 8.0 2. As outlined - recommend withholding Coumadin therapy at this point indefinitely recognizing elevated stroke risk ([id number] score of 5). Patient does have h/o NATE ligation which is helpful 3. Monitor off antibiotics 4. Continue Lasix 40 mg qd with close monitoring of renal function and electrolytes 5. Continue Lopressor 25 mg bid 6. Continue Cozaar 25 mg qd 7. Empiric steroid taper with GI protection per hematology. Continue bronchodilator. Flow cytometry shows possible monoclonal B cells - await bone marrow biopsy results 8. DVT prophylaxis Further plans are to follow Emile Leong MD
[2016-11-01 08:45] LABS: COCKROFT - GAULT 49.51; CREATININE 1.4 mg/dL (0.7-1.3)
[2016-11-01 08:46] LABS: ALBUMIN 3.1 g/dl (3.4-5.0); BILIRUBIN,TOTAL 1.9 mg/dL (0.2-1.0); CALCIUM 8.4 mg/dL (8.5-10.1); TOT PROT 6.9 g/dl (6.4-8.2)
[2016-11-01] MEDS: POLYETHYLENE GLYCOL 3350 119 GM BTL PO SCH ×2 (09:29→22:47)
[2016-11-01] MEDS: FUROSEMIDE 40 MG TABLET (FP) PO SCH (09:30)
[2016-11-01] MEDS: DOCUSATE SODIUM 100 MG CAPSULE (FP) PO SCH (09:30)
[2016-11-01] MEDS: PANTOPRAZOLE 40 MG TABLET (FP) PO SCH ×2 (09:30→22:41)
[2016-11-01] MEDS: LOSARTAN POTASSIUM 25 MG TABLET PO SCH (09:30)
[2016-11-01] MEDS: METOPROLOL TARTRATE 25 MG TABLET (FP) PO SCH ×2 (09:30→22:40)
[2016-11-01] MEDS: NYSTATIN POWDER 100,000 UNITS/GM - 15 GM TOPICAL POWDER TP SCH ×2 (09:31→09:56)
[2016-11-01] MEDS: methylPREDNISolone NA SUCC 40 MG/1 ML VIAL IVPB SCH ×2 (09:31→22:42)
--- NOTE | 2016-11-01 11:46 | PN ---
Progress Note, Physician History of Present Illness: pulmonary alert,-sob,-cp,+cough - Current Medication List Current Medications: Active Medications Albuterol/Ipratropium (Duoneb -) 1 amp NEB QIDR [facility] Last Admin: 11/01/16 11:18 Dose: 1 amp Chlorhexidine Gluconate (Hibiclens For Decolonization -) 1 applic TP HS [facility] Last Admin: 10/31/16 23:35 Dose: Not Given Docusate Sodium (Colace -) 100 mg PO DAILY [facility] Last Admin: 11/01/16 09:30 Dose: 100 mg Furosemide (Lasix -) 40 mg PO DAILY [facility] Last Admin: 11/01/16 09:30 Dose: 40 mg Guaifenesin (Robitussin -) 10 ml PO TID [facility] Last Admin: 11/01/16 06:19 Dose: 10 ml Guaifenesin/Codeine Phosphate (Robitussin Ac -) 5 ml PO HS [facility] Last Admin: 10/31/16 23:13 Dose: 5 ml Heparin Sodium (Porcine) (Heparin -) 5,000 unit SQ TID [facility] Last Admin: 11/01/16 06:18 Dose: 5,000 unit Insulin Aspart (Novolog Vial Sliding Scale -) 1 vial SQ ACHS [facility] PRN Reason: Protocol Last Admin: 11/01/16 06:19 Dose: Not Given Losartan Potassium (Cozaar -) 25 mg PO DAILY [facility] Last Admin: 11/01/16 09:30 Dose: 25 mg Melatonin (Melatonin) 5 mg PO HS [facility] Last Admin: 10/31/16 23:14 Dose: 5 mg Methylprednisolone Sodium Succinate (Solu-Medrol -) 30 mg IVPB BID [facility] Last Admin: 11/01/16 09:31 Dose: 30 mg Metoprolol Tartrate (Lopressor -) 25 mg PO BID [facility] Last Admin: 11/01/16 09:30 Dose: 25 mg Nystatin (Nystop Powder -) 1 applic TP DAILY [facility] Last Admin: 11/01/16 09:56 Dose: Not Given Pantoprazole Sodium (Protonix -) 40 mg PO BID [facility] Last Admin: 11/01/16 09:30 Dose: 40 mg Polyethylene Glycol (Miralax (For Daily Use) -) 17 gm PO BID [facility] Last Admin: 11/01/16 09:29 Dose: Not Given Sodium Chloride ([place] Nasal [place] -) 2 spray NS TID PRN PRN Reason: NASAL CONGESTION - Objective Vital Signs: Vital Signs Temperature 97.2 F L 11/01/16 01:39 Pulse Rate 54 L 11/01/16 05:00 Respiratory Rate 20 11/01/16 05:00 Blood Pressure 100/43 11/01/16 05:00 O2 Sat by Pulse Oximetry (%) 98 10/31/16 21:00 Constitutional: Yes: Well Nourished, Calm Eyes: Yes: WNL HENT: Yes: WNL Neck: Yes: WNL Cardiovascular: Yes: Pulse Irregular, S1, S2 Respiratory: Yes: Diminished Gastrointestinal: Yes: Normal Bowel Sounds, Soft Extremities: Yes: WNL Edema: Yes Edema: LLE: 3+, RLE: 3+ Labs: CBC, BMP 11/01/16 06:18 11/01/16 06:18 INR, PTT INR 1.14 (0.82-1.09) D 10/29/16 11:00 Problem List - Problems (1) Aspiration into respiratory tract Code(s): T17.908A - UNSP FB IN RESP TRACT, PART UNSP CAUSING OTH INJURY, INIT Qualifiers: Qualified Code(s): T17.908A - Unspecified foreign body in respiratory tract, part unspecified causing other injury, initial encounter (2) CO2 narcosis Code(s): R06.89 - OTHER ABNORMALITIES OF BREATHING (3) COPD (chronic obstructive pulmonary disease) Code(s): J44.9 - CHRONIC OBSTRUCTIVE PULMONARY DISEASE, UNSPECIFIED Qualifiers : Qualified Code(s): J44.9 - Chronic obstructive pulmonary disease, unspecified (4) Anemia Code(s): D64.9 - ANEMIA, UNSPECIFIED (5) GI bleed Code(s): K92.2 - GASTROINTESTINAL HEMORRHAGE, UNSPECIFIED Qualifiers: Qualified Code(s): K57.91 - Diverticulosis of intestine, part unspecified, without perforation or abscess with bleeding (6) Severe anemia Code(s): D64.9 - ANEMIA, UNSPECIFIED (7) Shortness of breath Code(s): R06.02 - SHORTNESS OF BREATH (8) Systolic and diastolic CHF, acute on chronic Code(s): I50.43 - ACUTE ON CHRONIC COMBINED SYSTOLIC AND DIASTOLIC HRT FAIL (9) Atrial fibrillation Code(s): I48.91 - UNSPECIFIED ATRIAL FIBRILLATION Qualifiers: Qualified Code(s): I48.1 - Persistent atrial fibrillation (10) CAD (coronary artery disease) Code(s): I25.10 - ATHSCL HEART DISEASE OF [place] CORONARY ARTERY W/O ANG PCTRS Qualifiers: Qualified Code(s): I25.10 - Atherosclerotic heart disease of [place] coronary artery without angina pectoris (11) Hypercholesterolemia Code(s): E78.0 - PURE HYPERCHOLESTEROLEMIA * DO NOT USE * (12) Hypertension Code(s): I10 - ESSENTIAL (PRIMARY) HYPERTENSION Qualifiers: Qualified Code(s): I10 - Essential (primary) hypertension Assessment/Plan ASSESSMENT AND PLAN: s/p Acute Hypercapneic Respiratory Failure improved Acute COPD Exacerbation improved LV Diastolic Dysfunction Pulmonary HTN CAD Atrial Fibrillation HTN CKD ASD s/p repair r/o myeloproliferative disorder - continue medrol bid - inhaled bronchodilators - monitor CBC - transfuse as needed - lasix - DVT/GI prophylaxis - anti-tussives - daily wts - check path DR ANAND
[2016-11-01] MEDS ORDERED: ALBUTEROL SO4 2.5/IPRATROPIUM 0.5 INH SOL 3 ML VIAL.NEB. NEB ONE (17:24)
--- NOTE | 2016-11-01 17:47 | PN ---
Physical Exam: SUBJECTIVE: Patient seen and examined OOB to chair. OBJECTIVE: Vital Signs Period Temp Pulse Resp BP Sys/Brian Pulse Ox Last 24 Hr 97.2 F-98.1 F 54-77 18-20 93-106/42-59 98 GENERAL: The patient is awake, alert, and fully oriented, in no acute distress. LUNGS: Mild expiratory wheezing HEART: Irregular S1, S2 without murmur, rub or gallop. ABDOMEN: Soft, nontender, nondistended, normoactive bowel sounds, no guarding, no rebound EXTREMITIES: 2+ pulses, warm, well-perfused, no edema. NEUROLOGICAL: Cranial nerves II through XII grossly intact. Normal speech, gait not observed. Laboratory Results - last 24 hr 10/31/16 11/01/16 11/01/16 23:12 05:59 06:18 WBC 3.9 L RBC 2.49 L Hgb 8.4 L Hct 25.4 L MCV 102.1 H MCHC 32.8 RDW 20.3 H Plt Count 149 MPV 7.5 Neutrophils % 89.8 H Lymphocytes % 3.6 L D Monocytes % 6.6 Eosinophils % 0.0 Basophils % 0.0 Sodium Potassium Chloride Carbon Dioxide Anion Gap BUN Creatinine Creat Clearance w eGFR POC Glucometer 142 153 Random Glucose Calcium Total Bilirubin AST ALT Alkaline Phosphatase Total Protein Albumin 11/01/16 11/01/16 11/01/16 06:18 11:30 17:07 WBC RBC Hgb Hct MCV MCHC RDW Plt Count MPV Neutrophils % Lymphocytes % Monocytes % Eosinophils % Basophils % Sodium 134 L Potassium 4.7 Chloride 93 L Carbon Dioxide 35 H Anion Gap 6 L BUN 44 H Creatinine 1.4 H Creat Clearance w eGFR 47.94 POC Glucometer 147 127 Random Glucose 152 H Calcium 8.4 L Total Bilirubin 1.9 H AST 15 D ALT 32 Alkaline Phosphatase 73 Total Protein 6.9 Albumin 3.1 L Active Medications Generic Name Dose Route Start Last Admin Trade Name Freq PRN Reason Stop Dose Admin Chlorhexidine Gluconate 1 applic 10/27/16 22:00 10/31/16 23:35 Hibiclens For Decolonization - TP Not Given HS RUBIA Docusate Sodium 100 mg 10/27/16 10:00 11/01/16 09:30 Colace - PO 100 mg DAILY RUBIA Administration Furosemide 40 mg 10/27/16 10:00 11/01/16 09:30 Lasix - PO 40 mg DAILY RUBIA Administration Guaifenesin 10 ml 10/30/16 09:15 11/01/16 14:22 Robitussin - PO Not Given TID RUBIA Guaifenesin/Codeine Phosphate 5 ml 10/31/16 22:00 10/31/16 23:13 Robitussin Ac - PO 5 ml HS RUBIA Administration Heparin Sodium (Porcine) 5,000 unit 10/27/16 14:00 11/01/16 14:22 Heparin - SQ Not Given TID RUBIA Insulin Aspart 1 vial 10/31/16 11:00 11/01/16 17:46 Novolog Vial Sliding Scale - SQ Not Given ACHS [facility] Protocol Losartan Potassium 25 mg 10/27/16 10:00 11/01/16 09:30 Cozaar - PO 25 mg DAILY RUBIA Administration Melatonin 5 mg 10/30/16 20:00 10/31/16 23:14 Melatonin PO 5 mg HS RUBIA Administration Methylprednisolone Sodium Succinate 30 mg 10/30/16 22:00 11/01/16 09:31 Solu-Medrol - IVPB 30 mg BID RUBIA Administration Metoprolol Tartrate 25 mg 10/27/16 10:00 11/01/16 09:30 Lopressor - PO 25 mg BID RUBIA Administration Nystatin 1 applic 10/27/16 10:00 11/01/16 09:56 Nystop Powder - TP Not Given DAILY [facility] Pantoprazole Sodium 40 mg 10/30/16 10:00 11/01/16 09:30 Protonix - PO 40 mg BID RUBIA Administration Polyethylene Glycol 17 gm 10/27/16 10:00 11/01/16 09:29 Miralax (For Daily Use) - PO Not Given BID [facility] Sodium Chloride 2 spray 10/30/16 15:47 [place] - NS TID PRN NASAL CONGESTION ASSESSMENT/PLAN 86 year-old male with a PMH of asthma/COPD, anemia, CHF, afib, CAD, ASD s/p repair, pulmonary hypertension, diastolic heart failure, hypertension, hyperlipidemia, and h/o GI bleeding. Admitted in respiratory failure. Acute hypercapnic respiratory failure, resolved Asthma/COPD --continue IV steroids --continue nebs Diastolic heart failure Pulmonary hypertension --continue Lasix CAD --continue metoprolol Atrial fibrillation --s/p Cryo-Maze and NATE ligation --[id number] 5 --currently off anti-coagulation Hypertension --continue losartan, metoprolol Hyperlipidemia --not on medication h/o GI bleed --continue protonix Pancytopenia --possible low grade autoimmune hemolysis triggered by mycoplasma vs MGUS/ myeloma versus lymphoproliferative process --waiting for bone marrow biopsy results Acute on chronic renal insufficiency --Cr was 2.3 on admission, today 1.4, baseline 1.1 F/E/N Fluids: PO intake adequate Electrolytes: replete as indicated Nutrition: sodium controlled DVT prophylaxis: subq heparin, oob, ambulation Dispo: Pending biopsy results. Full Code Visit type - Emergency Visit Emergency Visit: Yes ED Registration Date: 10/22/16 Care time: The patient presented to the Emergency Department on the above date and was hospitalized for further evaluation of their emergent condition. - New Patient This patient is new to me today: No - Critical Care Critical Care patient: No
--- NOTE | 2016-11-01 22:07 | PN ---
Progress Note (short form) - Note Progress Note: patient seen and examined feels better Last Vital Signs Temp Pulse Resp BP Pulse Ox 98.3 F 72 20 119/57 98 11/01/16 18:00 11/01/16 18:00 11/01/16 18:00 11/01/16 18:00 10/31/16 21:00 Cor: RSR, No murmurs, No gallops Lungs: Clear to P&A Abd: Soft, Normal bowel sounds, No organomegaly Ext:stasis dermatitis Abnormal Lab Results 10/22/16 11/01/16 11/01/16 10:30 06:18 06:18 WBC 3.9 L RBC 2.49 L Hgb 8.4 L Hct 25.4 L MCV 102.1 H RDW 20.3 H Neutrophils % 89.8 H Lymphocytes % 3.6 L D Sodium 134 L Chloride 93 L Carbon Dioxide 35 H Anion Gap 6 L BUN 44 H Creatinine 1.4 H Random Glucose 152 H Calcium 8.4 L Total Bilirubin 1.9 H Albumin 3.1 L Crossmatch See Detail Active Medications Generic Name Dose Route Start Last Admin Trade Name Eleuterioq PRN Reason Stop Dose Admin Chlorhexidine Gluconate 1 applic 10/27/16 22:00 11/01/16 22:39 Hibiclens For Decolonization - TP Not Given HS RUBIA Docusate Sodium 100 mg 10/27/16 10:00 11/01/16 09:30 Colace - PO 100 mg DAILY RUBIA Administration Furosemide 40 mg 10/27/16 10:00 11/01/16 09:30 Lasix - PO 40 mg DAILY RUBIA Administration Guaifenesin 10 ml 10/30/16 09:15 11/01/16 22:41 Robitussin - PO 10 ml TID RUBIA Administration Guaifenesin/Codeine Phosphate 5 ml 10/31/16 22:00 11/01/16 22:41 Robitussin Ac - PO 5 ml HS RUBIA Administration Heparin Sodium (Porcine) 5,000 unit 10/27/16 14:00 11/01/16 22:45 Heparin - SQ 5,000 unit TID RUBIA Administration Insulin Aspart 1 vial 10/31/16 11:00 11/01/16 22:40 Novolog Vial Sliding Scale - SQ 4 units ACHS RUBIA Administration Protocol Losartan Potassium 25 mg 10/27/16 10:00 11/01/16 09:30 Cozaar - PO 25 mg DAILY RUBIA Administration Melatonin 5 mg 10/30/16 20:00 11/01/16 22:40 Melatonin PO 5 mg HS RUBIA Administration Methylprednisolone Sodium Succinate 40 mg 11/01/16 22:00 11/01/16 22:42 Solu-Medrol - IVPB 40 mg BID RUBIA Administration Metoprolol Tartrate 25 mg 10/27/16 10:00 11/01/16 22:40 Lopressor - PO 25 mg BID RUBIA Administration Nystatin 1 applic 10/27/16 10:00 11/01/16 09:56 Nystop Powder - TP Not Given DAILY RUBIA Pantoprazole Sodium 40 mg 10/30/16 10:00 11/01/16 22:41 Protonix - PO 40 mg BID RUBIA Administration Polyethylene Glycol 17 gm 10/27/16 10:00 11/01/16 22:47 Miralax (For Daily Use) - PO 17 gm BID RUBIA Administration Sodium Chloride 2 spray 10/30/16 15:47 [place] Nasal [place] - NS TID PRN NASAL CONGESTION A/P 86 y/o patient with anemia, + benson agglutinin + cold agglutinin nl LDH/haptoglobin ? extravascular hemolysis + mycoplasma titers--s/o recent mycoplasma inf.--discussed with ID B12/TSH--nl IgM monoclonal protein : SFLCA --Lambda light chains--1000s Flow shows --? monoclonal B cell population. Lambda light chains elevated in 1000s, ratio 0.03 BMBX pending ?? MGUS related to aging vs r/o lymphoproliferative process vs MDS no majot response to steroids --? rapid taper Splenomegaly on CT scans --?? occult liver disease as cause of cytopenias vs lymphoproliferative process will request gi input ? liver/spleen scan
[2016-11-01] MEDS: CHLORHEXIDINE GLUCONATE 4% CLEANSER FOR DECOLONIZATION TP SCH (22:39)
[2016-11-01] MEDS: MELATONIN 5 MG TABLETS PO SCH (22:40)
[2016-11-01] MEDS: guaiFENesin/CODEINE 5 ML UNIT-DOSE CUPS PO SCH (22:41)
[2016-11-02] MEDS: INSULIN SLIDING SCALE (NOVOLOG) 1 VIAL SQ SCH ×4 (06:04→21:28)
[2016-11-02] MEDS: HEPARIN NA (PORCINE) 5,000 UNITS/ML 1ML VIAL SQ SCH ×3 (06:04→21:12)
[2016-11-02] MEDS: guaiFENesin 200 MG/10 ML 10 ML UNIT-DOSE CUPS PO SCH ×3 (06:04→21:19)
[2016-11-02 07:19] LABS: BASOPHIL 0.1 % (0-2.0); EOSINOPHIL 0.1 % (0-4.5); MCH 33.3 pg (25.7-33.7); MCHC 32.4 g/dl (32.0-35.9); MEAN CELL VOLUME 102.8 fl (80-96); MEAN PLT VOLUME 7.5 fl (7.5-11.1); NEUTROPHILS 89.5 % (42.8-82.8); PLATELET COUNT 164 K/MM3 (134-434); RDW 20.3 % (11.9-15.9); WHITE BLOOD COUNT 3.7 K/mm3 (4.0-10.0)
[2016-11-02 07:57] LABS: ALBUMIN 2.8 g/dl (3.4-5.0); CALCIUM 8.8 mg/dL (8.5-10.1)
[2016-11-02 07:58] LABS: BILIRUBIN,TOTAL 1.7 mg/dL (0.2-1.0); COCKROFT - GAULT 58.04; CREATININE 1.2 mg/dL (0.7-1.3); TOT PROT 6.7 g/dl (6.4-8.2)
--- NOTE | 2016-11-02 08:20 | PN ---
Progress Note (short form) - Note Progress Note: Chief Complaint: Events noted, notes reviewed, sitting in a chair, denies any chest pain but reports dyspnea and increasing bilateral lower extremity edema, remains in atrial fibrillation, rate controlled History of Present Illness: Seen and examined on telemetry. Events noted, notes reviewed, sitting in a chair , denies any chest pain but reports dyspnea and increasing bilateral lower extremity edema, remains in atrial fibrillation, rate controlled - Current Medication List Current Medications Chlorhexidine Gluconate (Hibiclens For Decolonization -) [address] [facility] Last Admin: 11/01/16 22:39 Dose: Not Given Docusate Sodium (Colace -) [address] [facility] Last Admin: 11/01/16 09:30 Dose: 100 mg Furosemide (Lasix -) [address] [facility] Last Admin: 11/01/16 09:30 Dose: 40 mg Guaifenesin (Robitussin -) [address] [facility] Last Admin: 11/02/16 06:04 Dose: 10 ml Guaifenesin/Codeine Phosphate (Robitussin Ac -) [address] [facility] Last Admin: 11/01/16 22:41 Dose: 5 ml Heparin Sodium (Porcine) (Heparin -) 5,[address] [facility] Last Admin: 11/02/16 06:04 Dose: 5,000 unit Insulin Aspart (Novolog Vial Sliding Scale -) [address] [facility] PRN Reason: Protocol Last Admin: 11/02/16 06:04 Dose: 2 units Losartan Potassium (Cozaar -) [address] [facility] Last Admin: 11/01/16 09:30 Dose: 25 mg Melatonin (Melatonin) [address] [facility] Last Admin: 11/01/16 22:40 Dose: 5 mg Methylprednisolone Sodium Succinate (Solu-Medrol -) [address] [facility] Last Admin: 11/01/16 22:42 Dose: 40 mg Metoprolol Tartrate (Lopressor -) [address] [facility] Last Admin: 11/01/16 22:40 Dose: 25 mg Nystatin (Nystop Powder -) [address] [facility] Last Admin: 11/01/16 09:56 Dose: Not Given Pantoprazole Sodium (Protonix -) [address] [facility] Last Admin: 11/01/16 22:41 Dose: 40 mg Polyethylene Glycol (Miralax (For Daily Use) -) 17 gm PO BID RUBIA Last Admin: 11/01/16 22:47 Dose: 17 gm Sodium Chloride ([place] -) 2 spray NS TID PRN PRN Reason: NASAL CONGESTION Review of Systems Constitutional: denies Chills or Fever Respiratory: reports: Dyspnea Cardiovascular: As noted above Gastrointestinal: denies Nausea, Vomiting, Diarrhea or Constipation or Abdominal Discomfort Genitourinary: No Symptoms Reported Musculoskeletal: No Symptoms Reported - Objective Vital Signs: Last Vital Signs Temp Pulse Resp BP Pulse Ox 97.4 F L 80 20 100/45 94 L 11/02/16 06:00 11/02/16 06:00 11/02/16 06:00 11/02/16 06:00 11/01/16 21:00 Intake & Output 10/30/16 10/31/16 11/01/16 11/02/16 23:59 23:59 23:59 23:59 Intake Total 200 250 570 Output Total 800 850 200 Balance -600 -600 370 Weight 207 lb 9.6 oz 208 lb 9.6 oz Neck: Supple Negative JVD No Bruit Cardiovascular: S1 S2 Regular Rate Rhythm grade 2/6 SM Respiratory: Diminished Breath Sound at the Bases Gastrointestinal: Soft Benign Normal Bowel Sounds Ext: 2+ Edema Bilaterally Labs: CBC, BMP 11/02/16 05:35 11/02/16 05:35 Hepatic Panel Total Bilirubin 1.7 mg/dL (0.2-1.0) H 11/02/16 05:35 Direct Bilirubin 1.3 mg/dL (0.0-0.2) H 10/23/16 06:05 AST 12 U/L (15-37) L 11/02/16 05:35 ALT 30 U/L (12-78) 11/02/16 05:35 Alkaline Phosphatase 73 U/L (45-117) 11/02/16 05:35 Albumin 2.8 g/dl (3.4-5.0) L 11/02/16 05:35 Assessment/Plan ASSESSMENT: 1. Diastolic LV dysfunction with chronic class I-II NYHA association LV failure , acute exacerbation noted 2. 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 Persistent atrial fibrillation post Cryo-Maze and NATE ligation, [id number] score of 5, currently off of A/C 4. Moderate to severe degree of pulmonary HTN 5. Post acute hypercapneic respiratory failure etiology probably multi- factorial acute exacerbation of COPD, underlying anemia, post extubation 6. Wade cytopenia, post transfusion, possible hemolysis vs bone marrow suppression, evaluation in progress 7. HTN 8. Hypercholesterolemia 9. ASD post surgical repair 10. CKD PLAN: 1. Continue Lasix but change to IV and add Aldactone considering the above noted presentation 2. Continue Lopressor, hemodynamics permitting 3. Continue Cozaar, hemodynamic permitting with close monitoring of renal function 4. As outlined in prior notes recommend withholding Coumadin therapy at this point indefinitely recognizing elevated stroke risk ([id number] score of 5) considering the above noted presentation, patient not a candidate for Watchman device insertion, history of NATE ligation 5. Transfuse to maintain Hg equal or > 8.0 6. Steroids as per the primary team Nova Jara MD
[2016-11-02 08:41] LABS: URIC ACID 6.6 mg/dL (2.6-7.2)
[2016-11-02] MEDS ORDERED: FUROSEMIDE 40 MG/4 ML INJECTABLE VIAL IVPUSH ONE (08:45)
[2016-11-02] MEDS ORDERED: FUROSEMIDE 40 MG/4 ML INJECTABLE VIAL ONE (08:46)
[2016-11-02] MEDS: PANTOPRAZOLE 40 MG TABLET (FP) PO SCH ×2 (09:05→21:14)
[2016-11-02] MEDS: SPIRONOLACTONE 25 MG TABLET (FP) PO SCH ×2 (09:05→21:11)
[2016-11-02] MEDS: DOCUSATE SODIUM 100 MG CAPSULE (FP) PO SCH (09:05)
[2016-11-02] MEDS: METOPROLOL TARTRATE 25 MG TABLET (FP) PO SCH ×2 (09:05→21:12)
[2016-11-02] MEDS: methylPREDNISolone NA SUCC 40 MG/1 ML VIAL IVPB SCH ×2 (09:05→21:15)
[2016-11-02] MEDS: LOSARTAN POTASSIUM 25 MG TABLET PO SCH (09:05)
[2016-11-02] MEDS: NYSTATIN POWDER 100,000 UNITS/GM - 15 GM TOPICAL POWDER TP SCH (09:06)
[2016-11-02] MEDS: POLYETHYLENE GLYCOL 3350 119 GM BTL PO SCH ×2 (09:06→21:27)
[2016-11-02 11:08] LABS: BILIRUBIN,DIRECT 0.9 mg/dL (0.0-0.2)
--- NOTE | 2016-11-02 11:57 | PN ---
Progress Note, Physician History of Present Illness: pulmonary alert,oob-chair,-resp distress - Current Medication List Current Medications: Active Medications Chlorhexidine Gluconate (Hibiclens For Decolonization -) 1 applic TP HS [facility] Last Admin: 11/01/16 22:39 Dose: Not Given Docusate Sodium (Colace -) 100 mg PO DAILY [facility] Last Admin: 11/02/16 09:05 Dose: 100 mg Furosemide (Lasix Injection -) 40 mg IVPUSH BID@0600,1400 [facility] Guaifenesin (Robitussin -) 10 ml PO TID [facility] Last Admin: 11/02/16 06:04 Dose: 10 ml Guaifenesin/Codeine Phosphate (Robitussin Ac -) 5 ml PO HS [facility] Last Admin: 11/01/16 22:41 Dose: 5 ml Heparin Sodium (Porcine) (Heparin -) 5,000 unit SQ TID [facility] Last Admin: 11/02/16 06:04 Dose: 5,000 unit Insulin Aspart (Novolog Vial Sliding Scale -) 1 vial SQ ACHS [facility] PRN Reason: Protocol Last Admin: 11/02/16 11:21 Dose: Not Given Losartan Potassium (Cozaar -) 25 mg PO DAILY [facility] Last Admin: 11/02/16 09:05 Dose: 25 mg Melatonin (Melatonin) 5 mg PO HS [facility] Last Admin: 11/01/16 22:40 Dose: 5 mg Methylprednisolone Sodium Succinate (Solu-Medrol -) 40 mg IVPB BID [facility] Last Admin: 11/02/16 09:05 Dose: 40 mg Metoprolol Tartrate (Lopressor -) 25 mg PO BID [facility] Last Admin: 11/02/16 09:05 Dose: 25 mg Nystatin (Nystop Powder -) 1 applic TP DAILY [facility] Last Admin: 11/02/16 09:06 Dose: Not Given Pantoprazole Sodium (Protonix -) 40 mg PO BID [facility] Last Admin: 11/02/16 09:05 Dose: 40 mg Polyethylene Glycol (Miralax (For Daily Use) -) 17 gm PO BID [facility] Last Admin: 11/02/16 09:06 Dose: Not Given Sodium Chloride ([place] -) 2 spray NS TID PRN PRN Reason: NASAL CONGESTION Spironolactone (Aldactone -) 25 mg PO BID [facility] Last Admin: 11/02/16 09:05 Dose: 25 mg - Objective Vital Signs: Vital Signs Temperature 97.4 F L 11/02/16 06:00 Pulse Rate 80 11/02/16 06:00 Respiratory Rate 20 11/02/16 09:00 Blood Pressure 100/45 11/02/16 06:00 O2 Sat by Pulse Oximetry (%) 94 L 11/01/16 21:00 Constitutional: Yes: Well Nourished, Calm Eyes: Yes: WNL HENT: Yes: WNL Neck: Yes: WNL Cardiovascular: Yes: Pulse Irregular, S1, S2 Respiratory: Yes: Rales (few bibasilar crackles) Gastrointestinal: Yes: Normal Bowel Sounds, Soft Extremities: Yes: WNL Edema: Yes Edema: LLE: 3+, RLE: 3+ Labs: CBC, BMP 11/02/16 05:35 11/02/16 05:35 INR, PTT INR 1.14 (0.82-1.09) D 10/29/16 11:00 Problem List - Problems (1) Aspiration into respiratory tract Code(s): T17.908A - UNSP FB IN RESP TRACT, PART UNSP CAUSING OTH INJURY, INIT Qualifiers: Encounter type: initial encounter Qualified Code(s): T17.908A - Unspecified foreign body in respiratory tract, part unspecified causing other injury, initial encounter (2) CO2 narcosis Code(s): R06.89 - OTHER ABNORMALITIES OF BREATHING (3) COPD (chronic obstructive pulmonary disease) Code(s): J44.9 - CHRONIC OBSTRUCTIVE PULMONARY DISEASE, UNSPECIFIED Qualifiers : COPD type: unspecified COPD Qualified Code(s): J44.9 - Chronic obstructive pulmonary disease, unspecified (4) Anemia Code(s): D64.9 - ANEMIA, UNSPECIFIED Qualifiers: Anemia type: iron deficiency (5) GI bleed Code(s): K92.2 - GASTROINTESTINAL HEMORRHAGE, UNSPECIFIED Qualifiers: GI bleed type/associated pathology: diverticulosis Qualified Code(s) : K57.91 - Diverticulosis of intestine, part unspecified, without perforation or abscess with bleeding (6) Severe anemia Code(s): D64.9 - ANEMIA, UNSPECIFIED (7) Shortness of breath Code(s): R06.02 - SHORTNESS OF BREATH (8) Systolic and diastolic CHF, acute on chronic Code(s): I50.43 - ACUTE ON CHRONIC COMBINED SYSTOLIC AND DIASTOLIC HRT FAIL (9) Atrial fibrillation Code(s): I48.91 - UNSPECIFIED ATRIAL FIBRILLATION Qualifiers: Atrial fibrillation type: persistent Qualified Code(s): I48.1 - Persistent atrial fibrillation (10) CAD (coronary artery disease) Code(s): I25.10 - ATHSCL HEART DISEASE OF [place] CORONARY ARTERY W/O ANG PCTRS Qualifiers: Coronary Disease-Associated Artery/Lesion type: [place] artery [place] vs. transplanted heart: [place] heart Associated angina: without angina Qualified Code(s): I25.10 - Atherosclerotic heart disease of [place] coronary artery without angina pectoris (11) Hypercholesterolemia Code(s): E78.0 - PURE HYPERCHOLESTEROLEMIA * DO NOT USE * (12) Hypertension Code(s): I10 - ESSENTIAL (PRIMARY) HYPERTENSION Qualifiers: Hypertension type: essential hypertension Qualified Code(s): I10 - Essential (primary) hypertension Assessment/Plan ASSESSMENT AND PLAN: s/p Acute Hypercapneic Respiratory Failure improved Acute COPD Exacerbation improved LV Diastolic Dysfunction Pulmonary HTN CAD Atrial Fibrillation HTN CKD ASD s/p repair r/o myeloproliferative disorder - medrol bid as per hematology - iv lasix and aldctone as per cardiology - inhaled bronchodilators - monitor CBC - lasix - DVT/GI prophylaxis - anti-tussives - daily wts - path pending DR ANAND
[2016-11-02] MEDS: FUROSEMIDE 40 MG/4 ML INJECTABLE VIAL IVPUSH SCH (14:12)
--- NOTE | 2016-11-02 16:43 | PN ---
GI Progress Note Subjective: Recalled to evaluate for the possibility of liver disease that could be contributing to splenomegaly Mr. Pfeiffer tells me that he used to drink heavily about 20 years ago Iron saturation was normal at 28% He does have moderately reduced RV function on echo from 10/24 baseline SOB persists - Objective Vital Signs: Vital Signs Temperature 98 F 11/02/16 14:51 Pulse Rate 87 11/02/16 14:51 Respiratory Rate 20 11/02/16 14:51 Blood Pressure 106/49 11/02/16 14:51 O2 Sat by Pulse Oximetry (%) 94 L 11/01/16 21:00 Constitutional: Calm Eyes: No: Sclera Icterus Respiratory: Yes: Diminished Gastrointestinal Inspection: Yes: Distention ...Auscultate: Yes: Normoactive Bowel Sounds ...Palpate: No: Tenderness Edema: Yes Edema: LLE: 3+, RLE: 3+ Labs: CBC, BMP 11/02/16 05:35 11/02/16 05:35 INR, PTT INR 1.14 (0.82-1.09) D 10/29/16 11:00 Hepatic Panel Total Bilirubin 1.7 mg/dL (0.2-1.0) H 11/02/16 05:35 Direct Bilirubin 0.9 mg/dL (0.0-0.2) H D 11/02/16 05:35 AST 12 U/L (15-37) L 11/02/16 05:35 ALT 30 U/L (12-78) 11/02/16 05:35 Alkaline Phosphatase 73 U/L (45-117) 11/02/16 05:35 Albumin 2.8 g/dl (3.4-5.0) L 11/02/16 05:35 Problem List - Problems (1) Abnormal liver function tests Assessment/Plan: The question of cirrhosis is brought up. It is a possibility. Would monitor with q6 month hepatic US and AFP tumor marker Low sodium diet Advised complete avoidance of alcohol await bone marrow biopsy Code(s): R79.89 - OTHER SPECIFIED ABNORMAL FINDINGS OF BLOOD CHEMISTRY
--- NOTE | 2016-11-02 18:34 | PN ---
Physical Exam: SUBJECTIVE: Patient seen and examined oob to chair. Legs elevated on chair. Worst swelling patient has ever experienced. OBJECTIVE: Vital Signs Period Temp Pulse Resp BP Sys/Brian Pulse Ox Last 24 Hr 97.3 F-98 F 78-87 20-20 92-110/40-53 94 GENERAL: The patient is awake, alert, and fully oriented, in no acute distress. LUNGS: Mild expiratory wheezing HEART: Irregular S1, S2 without murmur, rub or gallop. ABDOMEN: Soft, nontender, nondistended, normoactive bowel sounds, no guarding, no rebound EXTREMITIES: 3+ bilateral lower extremity edema; venous stasis changes NEUROLOGICAL: Cranial nerves II through XII grossly intact. Normal speech, gait not observed. Laboratory Results - last 24 hr 11/01/16 11/02/16 11/02/16 22:38 05:35 05:35 WBC 3.7 L RBC 2.65 L Hgb 8.8 L Hct 27.3 L MCV 102.8 H MCHC 32.4 RDW 20.3 H Plt Count 164 MPV 7.5 Neutrophils % 89.5 H Lymphocytes % 3.6 L Monocytes % 6.7 Eosinophils % 0.1 D Basophils % 0.1 D Sodium 139 Potassium 4.6 Chloride 97 L Carbon Dioxide 34 H Anion Gap 8 BUN 41 H Creatinine 1.2 Creat Clearance w eGFR 57.27 POC Glucometer 206 Random Glucose 129 H Uric Acid 6.6 Calcium 8.8 Total Bilirubin 1.7 H Direct Bilirubin 0.9 H D AST 12 L ALT 30 Alkaline Phosphatase 73 LD Total 150 Total Protein 6.7 Albumin 2.8 L 11/02/16 11/02/16 11/02/16 05:35 06:02 11:11 WBC RBC Hgb Hct MCV MCHC RDW Plt Count MPV Neutrophils % Lymphocytes % Monocytes % Eosinophils % Basophils % Sodium Potassium Chloride Carbon Dioxide Anion Gap BUN Creatinine Creat Clearance w eGFR POC Glucometer 156 119 Random Glucose Uric Acid Calcium Total Bilirubin Direct Bilirubin Cancelled AST ALT Alkaline Phosphatase LD Total Total Protein Albumin Active Medications Generic Name Dose Route Start Last Admin Trade Name Freq PRN Reason Stop Dose Admin Chlorhexidine Gluconate 1 applic 10/27/16 22:00 11/01/16 22:39 Hibiclens For Decolonization - TP Not Given HS RUBIA Docusate Sodium 100 mg 10/27/16 10:00 11/02/16 09:05 Colace - PO 100 mg DAILY RUBIA Administration Furosemide 40 mg 11/02/16 14:00 11/02/16 14:12 Lasix Injection - IVPUSH 40 mg BID@0600,1400 RUBIA Administration Guaifenesin 10 ml 10/30/16 09:15 11/02/16 14:12 Robitussin - PO Not Given TID RUBIA Guaifenesin/Codeine Phosphate 5 ml 10/31/16 22:00 11/01/16 22:41 Robitussin Ac - PO 5 ml HS RUBIA Administration Heparin Sodium (Porcine) 5,000 unit 10/27/16 14:00 11/02/16 14:12 Heparin - SQ 5,000 unit TID RUBIA Administration Insulin Aspart 1 vial 10/31/16 11:00 11/02/16 18:20 Novolog Vial Sliding Scale - SQ Not Given ACHS [facility] Protocol Losartan Potassium 25 mg 10/27/16 10:00 11/02/16 09:05 Cozaar - PO 25 mg DAILY RUBIA Administration Melatonin 5 mg 10/30/16 20:00 11/01/16 22:40 Melatonin PO 5 mg HS [facility] Administration Methylprednisolone Sodium Succinate 40 mg 11/01/16 22:00 11/02/16 09:05 Solu-Medrol - IVPB 40 mg BID RUBIA Administration Metoprolol Tartrate 25 mg 10/27/16 10:00 11/02/16 09:05 Lopressor - PO 25 mg BID RUBIA Administration Nystatin 1 applic 10/27/16 10:00 11/02/16 09:06 Nystop Powder - TP Not Given DAILY [facility] Pantoprazole Sodium 40 mg 10/30/16 10:00 11/02/16 09:05 Protonix - PO 40 mg BID RUBIA Administration Polyethylene Glycol 17 gm 10/27/16 10:00 11/02/16 09:06 Miralax (For Daily Use) - PO Not Given BID [facility] Sodium Chloride 2 spray 10/30/16 15:47 [place] Nasal [place] - NS TID PRN NASAL CONGESTION Spironolactone 25 mg 11/02/16 10:00 11/02/16 09:05 Aldactone - PO 25 mg BID RUBIA Administration ASSESSMENT/PLAN 86 year-old male with a PMH of asthma/COPD, anemia, CHF, afib, CAD, ASD s/p repair, pulmonary hypertension, diastolic heart failure, hypertension, hyperlipidemia, and h/o GI bleeding. Admitted in respiratory failure. 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 Full Code Visit type - Emergency Visit Emergency Visit: Yes ED Registration Date: 10/22/16 Care time: The patient presented to the Emergency Department on the above date and was hospitalized for further evaluation of their emergent condition. - New Patient This patient is new to me today: No - Critical Care Critical Care patient: No
--- NOTE | 2016-11-02 20:58 | PN ---
Progress Note (short form) - Note Progress Note: Patient seen and examined Respiratory status still a problem. Remains somewhat sedentary. Last Vital Signs Temp Pulse Resp BP Pulse Ox 97.5 F L 90 20 121/69 95 11/02/16 20:31 11/02/16 20:31 11/02/16 20:31 11/02/16 20:31 11/02/16 20:31 HEENT: TAM, EOM Intact Oropharynx: No thrush, No mucositis Cor:atrial fib Lungs:diminished breath sounds, wheezes, rhonchi Abd: mildly distended Ext LE edema Skin: Integument intact, numerous ecchymoses CBC, BMP 11/02/16 05:35 Current Medications Generic Name Dose Route Start Last Admin Trade Name Omi PRN Reason Stop Dose Admin Chlorhexidine Gluconate 1 applic 10/27/16 22:00 11/01/16 22:39 Hibiclens For Decolonization - TP Not Given HS RUBIA Docusate Sodium 100 mg 10/27/16 10:00 11/02/16 09:05 Colace - PO 100 mg DAILY RUBIA Administration Furosemide 40 mg 11/02/16 14:00 11/02/16 14:12 Lasix Injection - IVPUSH 40 mg BID@0600,1400 RUBIA Administration Guaifenesin 10 ml 10/30/16 09:15 11/02/16 14:12 Robitussin - PO Not Given TID RUBIA Guaifenesin/Codeine Phosphate 5 ml 10/31/16 22:00 11/01/16 22:41 Robitussin Ac - PO 5 ml HS RUBIA Administration Heparin Sodium (Porcine) 5,000 unit 10/27/16 14:00 11/02/16 14:12 Heparin - SQ 5,000 unit TID RUBIA Administration Insulin Aspart 1 vial 10/31/16 11:00 11/02/16 18:20 Novolog Vial Sliding Scale - SQ Not Given ACHS RUBIA Protocol Losartan Potassium 25 mg 10/27/16 10:00 11/02/16 09:05 Cozaar - PO 25 mg DAILY RUBIA Administration Melatonin 5 mg 10/30/16 20:00 11/01/16 22:40 Melatonin PO 5 mg HS RUBIA Administration Methylprednisolone Sodium Succinate 40 mg 11/01/16 22:00 11/02/16 09:05 Solu-Medrol - IVPB 40 mg BID RUBIA Administration Metoprolol Tartrate 25 mg 10/27/16 10:00 11/02/16 09:05 Lopressor - PO 25 mg BID RUBIA Administration Nystatin 1 applic 10/27/16 10:00 11/02/16 09:06 Nystop Powder - TP Not Given DAILY RUBIA Pantoprazole Sodium 40 mg 10/30/16 10:00 11/02/16 09:05 Protonix - PO 40 mg BID RUBIA Administration Polyethylene Glycol 17 gm 10/27/16 10:00 11/02/16 09:06 Miralax (For Daily Use) - PO Not Given BID RUBIA Sodium Chloride 2 spray 10/30/16 15:47 [place] Nasal [place] - NS TID PRN NASAL CONGESTION Spironolactone 25 mg 11/02/16 10:00 11/02/16 09:05 Aldactone - PO 25 mg BID RUBIA Administration Impression: Acute hypercapnia respiratory failure -resolved HBP DM CHF COPD Anemia. Neutropenia Abnormal Flow cytometry Monoclonal"B" cell population Plan: Optimization of cardiopulmonary status Await Bone marrow results
[2016-11-02] MEDS: guaiFENesin/CODEINE 5 ML UNIT-DOSE CUPS PO SCH (21:19)
[2016-11-02] MEDS: MELATONIN 5 MG TABLETS PO SCH (21:24)
[2016-11-02] MEDS: CHLORHEXIDINE GLUCONATE 4% CLEANSER FOR DECOLONIZATION TP SCH (21:27)
[2016-11-03] MEDS: FUROSEMIDE 40 MG/4 ML INJECTABLE VIAL IVPUSH SCH (06:21)
[2016-11-03] MEDS: guaiFENesin 200 MG/10 ML 10 ML UNIT-DOSE CUPS PO SCH ×3 (06:21→23:21)
[2016-11-03] MEDS: INSULIN SLIDING SCALE (NOVOLOG) 1 VIAL SQ SCH ×4 (06:21→23:23)
[2016-11-03] MEDS: HEPARIN NA (PORCINE) 5,000 UNITS/ML 1ML VIAL SQ SCH ×2 (06:21→14:56)
[2016-11-03 08:11] LABS: EOSINOPHIL 0.1 % (0-4.5); MCH 33.1 pg (25.7-33.7); MCHC 32.2 g/dl (32.0-35.9); MEAN CELL VOLUME 102.7 fl (80-96); MEAN PLT VOLUME 7.4 fl (7.5-11.1); NEUTROPHILS 87.5 % (42.8-82.8); PLATELET COUNT 180 K/MM3 (134-434); RDW 19.8 % (11.9-15.9); WHITE BLOOD COUNT 6.2 K/mm3 (4.0-10.0)
[2016-11-03 09:11] LABS: CALCIUM 9.4 mg/dL (8.5-10.1); COCKROFT - GAULT 56.26; CREATININE 1.2 mg/dL (0.7-1.3)
--- NOTE | 2016-11-03 09:44 | PN ---
Progress Note, Physician History of Present Illness: Comfortable OOB to chair. 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 Dyspnea and LE edema improving with increased diuresis. - Current Medication List Current Medications: Active Medications Chlorhexidine Gluconate (Hibiclens For Decolonization -) 1 applic TP HS [facility] Last Admin: 11/02/16 21:27 Dose: Not Given Docusate Sodium (Colace -) 100 mg PO DAILY [facility] Last Admin: 11/02/16 09:05 Dose: 100 mg Furosemide (Lasix Injection -) 40 mg IVPUSH BID@0600,1400 [facility] Last Admin: 11/03/16 06:21 Dose: 40 mg Guaifenesin (Robitussin -) 10 ml PO TID [facility] Last Admin: 11/03/16 06:21 Dose: 10 ml Guaifenesin/Codeine Phosphate (Robitussin Ac -) 5 ml PO HS [facility] Last Admin: 11/02/16 21:19 Dose: 5 ml Heparin Sodium (Porcine) (Heparin -) 5,000 unit SQ TID [facility] Last Admin: 11/03/16 06:21 Dose: 5,000 unit Insulin Aspart (Novolog Vial Sliding Scale -) 1 vial SQ ACHS [facility] PRN Reason: Protocol Last Admin: 11/03/16 06:21 Dose: 2 units Losartan Potassium (Cozaar -) 25 mg PO DAILY [facility] Last Admin: 11/02/16 09:05 Dose: 25 mg Melatonin (Melatonin) 5 mg PO HS [facility] Last Admin: 11/02/16 21:24 Dose: 5 mg Metoprolol Tartrate (Lopressor -) 25 mg PO BID [facility] Last Admin: 11/02/16 21:12 Dose: 25 mg Nystatin (Nystop Powder -) 1 applic TP DAILY [facility] Last Admin: 11/02/16 09:06 Dose: Not Given Pantoprazole Sodium (Protonix -) 40 mg PO BID [facility] Last Admin: 11/02/16 21:14 Dose: 40 mg Polyethylene Glycol (Miralax (For Daily Use) -) 17 gm PO BID [facility] Last Admin: 11/02/16 21:27 Dose: Not Given Prednisone 40 mg/ Prednisone (10 mg) 50 mg PO DAILY [facility] Sodium Chloride ([place] Nasal [place] -) 2 spray NS TID PRN PRN Reason: NASAL CONGESTION Spironolactone (Aldactone -) 25 mg PO BID [facility] Last Admin: 11/02/16 21:11 Dose: 25 mg - Objective Vital Signs: Vital Signs Temperature 98.7 F 11/03/16 06:00 Pulse Rate 86 11/03/16 06:00 Respiratory Rate 20 11/03/16 06:00 Blood Pressure 113/60 11/03/16 06:00 O2 Sat by Pulse Oximetry (%) 95 11/02/16 21:00 Constitutional: Yes: No Distress, Calm Neck: Yes: Supple Cardiovascular: Yes: Pulse Irregular Respiratory: Yes: Regular, Diminished, On Nasal O2 Gastrointestinal: Yes: Normal Bowel Sounds, Soft, Abdomen, Obese Edema: Yes Edema: LLE: 1+, RLE: 1+ Labs: CBC, BMP 11/03/16 05:40 11/03/16 05:40 INR, PTT INR 1.14 (0.82-1.09) D 10/29/16 11:00 - ....Imaging EKG: Report Reviewed (Tele: Afib) Problem List - Problems (1) COPD (chronic obstructive pulmonary disease) Code(s): J44.9 - CHRONIC OBSTRUCTIVE PULMONARY DISEASE, UNSPECIFIED Qualifiers : COPD type: unspecified COPD Qualified Code(s): J44.9 - Chronic obstructive pulmonary disease, unspecified (2) Severe anemia Code(s): D64.9 - ANEMIA, UNSPECIFIED (3) Shortness of breath Code(s): R06.02 - SHORTNESS OF BREATH (4) Systolic and diastolic CHF, acute on chronic Code(s): I50.43 - ACUTE ON CHRONIC COMBINED SYSTOLIC AND DIASTOLIC HRT FAIL (5) Atrial fibrillation Code(s): I48.91 - UNSPECIFIED ATRIAL FIBRILLATION Qualifiers: Atrial fibrillation type: persistent Qualified Code(s): I48.1 - Persistent atrial fibrillation (6) CAD (coronary artery disease) Code(s): I25.10 - ATHSCL HEART DISEASE OF [place] CORONARY ARTERY W/O ANG PCTRS Qualifiers: Coronary Disease-Associated Artery/Lesion type: [place] artery [place] vs. transplanted heart: [place] heart Associated angina: without angina Qualified Code(s): I25.10 - Atherosclerotic heart disease of [place] coronary artery without angina pectoris (7) H/O atrial septal defect repair Code(s): Z98.89 - OTHER SPECIFIED POSTPROCEDURAL STATES * DO NOT USE * Z87.74 - PERSONAL HISTORY OF CONGENITAL MALFORM OF HEART AND CIRC SYS (8) Hypercholesterolemia Code(s): E78.0 - PURE HYPERCHOLESTEROLEMIA * DO NOT USE * (9) Hypertension Code(s): I10 - ESSENTIAL (PRIMARY) HYPERTENSION Qualifiers: Hypertension type: essential hypertension Qualified Code(s): I10 - Essential (primary) hypertension (10) Right bundle branch block Code(s): I45.10 - UNSPECIFIED RIGHT BUNDLE-BRANCH BLOCK Assessment/Plan 1. Acute on chronic diastolic failure improving 2. 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 Persistent atrial fibrillation post Cryo-Maze and NATE ligation, [id number] score of 5, currently off of A/C 4. Moderate to severe degree of pulmonary HTN 5. Post acute hypercapneic respiratory failure etiology probably multi- factorial acute exacerbation of COPD, underlying anemia, post extubation 6. 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 HTN 8. Hypercholesterolemia 9. ASD post surgical repair 10. CKD PLAN: 1. Decrease Lasix 40 IV qd and Aldactone 25 bid considering the above noted presentation 2. Continue Lopressor 25 bid, hemodynamics permitting 3. Continue Cozaar 25 qd hemodynamics permitting with close monitoring of renal function 4. As outlined in prior notes recommend withholding Coumadin therapy at this point indefinitely recognizing elevated stroke risk ([id number] score of 5) considering the above noted presentation, patient not a candidate for Watchman device insertion, history of NATE ligation 5. Transfuse to maintain Hg equal or > 8.0 6. Steroids with GI protection as per the primary team, DVT prophylaxis, await bone marrow results
[2016-11-03] MEDS ORDERED: predniSONE 20 MG TABLET (UD) ONE (09:45)
[2016-11-03] MEDS ORDERED: predniSONE 10 MG TABLET (UD) ONE (09:45)
[2016-11-03] MEDS: DOCUSATE SODIUM 100 MG CAPSULE (FP) PO SCH (09:47)
[2016-11-03] MEDS: SPIRONOLACTONE 25 MG TABLET (FP) PO SCH ×2 (09:47→23:19)
[2016-11-03] MEDS: LOSARTAN POTASSIUM 25 MG TABLET PO SCH (09:48)
[2016-11-03] MEDS: PREDNISONE 40 MG, PREDNISONE 10 MG PO SCH (09:48)
[2016-11-03] MEDS: METOPROLOL TARTRATE 25 MG TABLET (FP) PO SCH ×2 (09:49→23:19)
[2016-11-03] MEDS: PANTOPRAZOLE 40 MG TABLET (FP) PO SCH ×2 (09:49→23:20)
[2016-11-03] MEDS: POLYETHYLENE GLYCOL 3350 119 GM BTL PO SCH ×2 (11:14→23:20)
--- NOTE | 2016-11-03 11:15 | PN ---
Progress Note, Physician History of Present Illness: pulmonary alert,feeling better,-sob at rest ,+crain - Current Medication List Current Medications: Active Medications Chlorhexidine Gluconate (Hibiclens For Decolonization -) 1 applic TP HS [facility] Last Admin: 11/02/16 21:27 Dose: Not Given Docusate Sodium (Colace -) 100 mg PO DAILY [facility] Last Admin: 11/03/16 09:47 Dose: 100 mg Furosemide (Lasix Injection -) 40 mg IVPUSH DAILY [facility] Guaifenesin (Robitussin -) 10 ml PO TID [facility] Last Admin: 11/03/16 06:21 Dose: 10 ml Guaifenesin/Codeine Phosphate (Robitussin Ac -) 5 ml PO HS [facility] Last Admin: 11/02/16 21:19 Dose: 5 ml Heparin Sodium (Porcine) (Heparin -) 5,000 unit SQ TID [facility] Last Admin: 11/03/16 06:21 Dose: 5,000 unit Insulin Aspart (Novolog Vial Sliding Scale -) 1 vial SQ ACHS [facility] PRN Reason: Protocol Last Admin: 11/03/16 06:21 Dose: 2 units Losartan Potassium (Cozaar -) 25 mg PO DAILY [facility] Last Admin: 11/03/16 09:48 Dose: 25 mg Melatonin (Melatonin) 5 mg PO HS [facility] Last Admin: 11/02/16 21:24 Dose: 5 mg Metoprolol Tartrate (Lopressor -) 25 mg PO BID [facility] Last Admin: 11/03/16 09:49 Dose: 25 mg Nystatin (Nystop Powder -) 1 applic TP DAILY [facility] Last Admin: 11/02/16 09:06 Dose: Not Given Pantoprazole Sodium (Protonix -) 40 mg PO BID [facility] Last Admin: 11/03/16 09:49 Dose: 40 mg Polyethylene Glycol (Miralax (For Daily Use) -) 17 gm PO BID [facility] Last Admin: 11/02/16 21:27 Dose: Not Given Prednisone 40 mg/ Prednisone (10 mg) 50 mg PO DAILY [facility] Last Admin: 11/03/16 09:48 Dose: 50 mg Sodium Chloride ([place] Nasal [place] -) 2 spray NS TID PRN PRN Reason: NASAL CONGESTION Spironolactone (Aldactone -) 25 mg PO BID [facility] Last Admin: 11/03/16 09:47 Dose: 25 mg - Objective Vital Signs: Vital Signs Temperature 98.7 F 11/03/16 06:00 Pulse Rate 86 11/03/16 06:00 Respiratory Rate 20 11/03/16 06:00 Blood Pressure 113/60 11/03/16 06:00 O2 Sat by Pulse Oximetry (%) 95 11/02/16 21:00 Constitutional: Yes: Well Nourished, Calm Eyes: Yes: WNL HENT: Yes: WNL Neck: Yes: WNL Cardiovascular: Yes: Pulse Irregular, S1, S2 Respiratory: Yes: Rales (few bibasilar rales) Gastrointestinal: Yes: Normal Bowel Sounds, Soft Extremities: Yes: WNL Edema: Yes Labs: CBC, BMP 11/03/16 05:40 11/03/16 05:40 INR, PTT INR 1.14 (0.82-1.09) D 10/29/16 11:00 Problem List - Problems (1) Aspiration into respiratory tract Code(s): T17.908A - UNSP FB IN RESP TRACT, PART UNSP CAUSING OTH INJURY, INIT Qualifiers: Qualified Code(s): T17.908A - Unspecified foreign body in respiratory tract, part unspecified causing other injury, initial encounter (2) CO2 narcosis Code(s): R06.89 - OTHER ABNORMALITIES OF BREATHING (3) COPD (chronic obstructive pulmonary disease) Code(s): J44.9 - CHRONIC OBSTRUCTIVE PULMONARY DISEASE, UNSPECIFIED Qualifiers : Qualified Code(s): J44.9 - Chronic obstructive pulmonary disease, unspecified (4) Anemia Code(s): D64.9 - ANEMIA, UNSPECIFIED (5) GI bleed Code(s): K92.2 - GASTROINTESTINAL HEMORRHAGE, UNSPECIFIED Qualifiers: Qualified Code(s): K57.91 - Diverticulosis of intestine, part unspecified, without perforation or abscess with bleeding (6) Severe anemia Code(s): D64.9 - ANEMIA, UNSPECIFIED (7) Shortness of breath Code(s): R06.02 - SHORTNESS OF BREATH (8) Systolic and diastolic CHF, acute on chronic Code(s): I50.43 - ACUTE ON CHRONIC COMBINED SYSTOLIC AND DIASTOLIC HRT FAIL (9) Atrial fibrillation Code(s): I48.91 - UNSPECIFIED ATRIAL FIBRILLATION Qualifiers: Qualified Code(s): I48.1 - Persistent atrial fibrillation (10) CAD (coronary artery disease) Code(s): I25.10 - ATHSCL HEART DISEASE OF [place] CORONARY ARTERY W/O ANG PCTRS Qualifiers: Qualified Code(s): I25.10 - Atherosclerotic heart disease of [place] coronary artery without angina pectoris (11) Hypercholesterolemia Code(s): E78.0 - PURE HYPERCHOLESTEROLEMIA * DO NOT USE * (12) Hypertension Code(s): I10 - ESSENTIAL (PRIMARY) HYPERTENSION Qualifiers: Qualified Code(s): I10 - Essential (primary) hypertension Assessment/Plan ASSESSMENT AND PLAN: s/p Acute Hypercapneic Respiratory Failure improved Acute COPD Exacerbation improved LV Diastolic Dysfunction Pulmonary HTN CAD Atrial Fibrillation HTN CKD ASD s/p repair r/o myeloproliferative disorder - medrol bid as per hematology - continue iv lasix and aldactone as per cardiology - inhaled bronchodilators - monitor CBC - lasix - DVT/GI prophylaxis - anti-tussives - daily wts - path pending DR ANAND
[2016-11-03] MEDS ORDERED: INSULIN (NOVOLOG) ASPART 100 UNITS/ML 10ML VIAL ONE (11:58)
[2016-11-03] MEDS: NYSTATIN POWDER 100,000 UNITS/GM - 15 GM TOPICAL POWDER TP SCH (14:40)
[2016-11-03] MEDS ORDERED: HEPARIN NA (PORCINE) 5,000 UNITS/ML 1ML VIAL SQ ONE (15:00)
--- NOTE | 2016-11-03 15:54 | PN ---
Physical Exam: SUBJECTIVE: Patient seen and examined. He is oob to chair he has no acute complaints, he does want to go home. He is conversing without issue OBJECTIVE: Vital Signs Period Temp Pulse Resp BP Sys/Brian Pulse Ox Last 24 Hr 97.5 F-98.7 F 82-90 18-20 100-121/52-69 95-95 PE Neuro: alert, awake, cn 2-12intact Pulm: distant, course CV: s1 s2 irregular rhythm, healed sternal scar Abd: s nt nd +bs Ext: le edema pitting +3, venous stasis changes Laboratory Results - last 24 hr 11/02/16 11/03/16 11/03/16 21:23 05:07 05:40 WBC 6.2 D RBC 2.98 L Hgb 9.9 L D Hct 30.7 L MCV 102.7 H MCHC 32.2 RDW 19.8 H Plt Count 180 MPV 7.4 L Neutrophils % 87.5 H Lymphocytes % 6.0 L D Monocytes % 6.4 Eosinophils % 0.1 Basophils % 0.0 Sodium Potassium Chloride Carbon Dioxide Anion Gap BUN Creatinine POC Glucometer 189 164 Random Glucose Calcium 11/03/16 11/03/16 05:40 11:20 WBC RBC Hgb Hct MCV MCHC RDW Plt Count MPV Neutrophils % Lymphocytes % Monocytes % Eosinophils % Basophils % Sodium 138 Potassium 4.7 Chloride 92 L Carbon Dioxide 37 H Anion Gap 9 BUN 41 H Creatinine 1.2 POC Glucometer 168 Random Glucose 123 H Calcium 9.4 Active Medications Generic Name Dose Route Start Last Admin Trade Name Freq PRN Reason Stop Dose Admin Chlorhexidine Gluconate 1 applic 10/27/16 22:00 11/02/16 21:27 Hibiclens For Decolonization - TP Not Given HS RUBIA Docusate Sodium 100 mg 10/27/16 10:00 11/03/16 09:47 Colace - PO 100 mg DAILY RUBIA Administration Furosemide 40 mg 11/04/16 10:00 Lasix Injection - IVPUSH DAILY RUBIA Guaifenesin 10 ml 10/30/16 09:15 11/03/16 14:56 Robitussin - PO 10 ml TID RUBIA Administration Guaifenesin/Codeine Phosphate 5 ml 10/31/16 22:00 11/02/16 21:19 Robitussin Ac - PO 5 ml HS RUBIA Administration Insulin Aspart 1 vial 10/31/16 11:00 11/03/16 12:00 Novolog Vial Sliding Scale - SQ 2 units ACHS RUBIA Administration Protocol Losartan Potassium 25 mg 10/27/16 10:00 11/03/16 09:48 Cozaar - PO 25 mg DAILY RUBIA Administration Melatonin 5 mg 10/30/16 20:00 11/02/16 21:24 Melatonin PO 5 mg HS RUBIA Administration Metoprolol Tartrate 25 mg 10/27/16 10:00 11/03/16 09:49 Lopressor - PO 25 mg BID RUBIA Administration Nystatin 1 applic 10/27/16 10:00 11/03/16 14:40 Nystop Powder - TP Not Given DAILY RUBIA Pantoprazole Sodium 40 mg 10/30/16 10:00 11/03/16 09:49 Protonix - PO 40 mg BID RUBIA Administration Polyethylene Glycol 17 gm 10/27/16 10:00 11/03/16 11:14 Miralax (For Daily Use) - PO 17 gm BID RUBIA Administration Prednisone 40 mg/ Prednisone 50 mg 11/03/16 10:00 11/03/16 09:48 10 mg PO 50 mg DAILY RUBIA Administration Sodium Chloride 2 spray 10/30/16 15:47 [place] Nasal [place] - NS TID PRN NASAL CONGESTION Spironolactone 25 mg 11/02/16 10:00 11/03/16 09:47 Aldactone - PO 25 mg BID RUBIA Administration Assessment: 86 year old male with a PMH of asthma/COPD, anemia, CHF, afib, CAD, ASD s/p repair, pulmonary hypertension, diastolic heart failure, hypertension, hyperlipidemia, and h/o GI bleeding. Admitted in respiratory failure. Plan: 1. Acute hypercapnic respiratory failure, resolved 2. Asthma/COPD - Continue PO prednisone - Continue nebs 3. Diastolic heart failure with Pulmonary hypertension - Decrease Lasix IV daily - Spironolactone BID - Compression stockings 4. CAD - Continue metoprolol 5. Atrial fibrillation - s/p Cryo-Maze and NATE ligation - [id number] - Currently off anti-coagulation 6. Hypertension - Continue losartan, metoprolol 7. Hyperlipidemia - Not on medication 8. h/o GI bleed - Continue protonix 9. Pancytopenia - Possible low grade autoimmune hemolysis triggered by mycoplasma vs MGUS/ myeloma versus lymphoproliferative process - Awaiting for bone marrow biopsy results Acute on chronic renal insufficiency - Improving - baseline 1.1 DVT prophylaxis: subq heparin, oob, ambulation Dispo: Pending biopsy results. Full Code Visit type - Emergency Visit Emergency Visit: Yes ED Registration Date: 10/22/16 Care time: The patient presented to the Emergency Department on the above date and was hospitalized for further evaluation of their emergent condition. - New Patient This patient is new to me today: Yes Date on this admission: 11/03/16 - Critical Care Critical Care patient: No
[2016-11-03] MEDS: guaiFENesin/CODEINE 5 ML UNIT-DOSE CUPS PO SCH (23:19)
[2016-11-03] MEDS: MELATONIN 5 MG TABLETS PO SCH (23:20)
[2016-11-03] MEDS: CHLORHEXIDINE GLUCONATE 4% CLEANSER FOR DECOLONIZATION TP SCH (23:20)
[2016-11-04] MEDS: INSULIN SLIDING SCALE (NOVOLOG) 1 VIAL SQ SCH ×4 (06:53→23:46)
[2016-11-04] MEDS: guaiFENesin 200 MG/10 ML 10 ML UNIT-DOSE CUPS PO SCH ×3 (06:53→23:39)
[2016-11-04 07:45] LABS: EOSINOPHIL 0.4 % (0-4.5); MCH 33.6 pg (25.7-33.7); MCHC 32.2 g/dl (32.0-35.9); MEAN CELL VOLUME 104.3 fl (80-96); MEAN PLT VOLUME 7.3 fl (7.5-11.1); NEUTROPHILS 80.8 % (42.8-82.8); PLATELET COUNT 172 K/MM3 (134-434); RDW 19.5 % (11.9-15.9)
[2016-11-04 08:17] LABS: CALCIUM 9.2 mg/dL (8.5-10.1); COCKROFT - GAULT 60.64; CREATININE 1.1 mg/dL (0.7-1.3)
--- NOTE | 2016-11-04 09:33 | PN ---
Physical Exam: SUBJECTIVE: Patient seen and examined OBJECTIVE: Vital Signs Period Temp Pulse Resp BP Sys/Brian Pulse Ox Last 24 Hr 97.3 F-98.4 F 82-102 18-20 100-121/48-65 GENERAL: The patient is awake, alert, and fully oriented, in no acute distress. LUNGS: Mild expiratory wheezing without change HEART: Irregular S1, S2 without murmur, rub or gallop. ABDOMEN: Soft, nontender, nondistended, normoactive bowel sounds, no guarding, no rebound EXTREMITIES: 3+ bilateral lower extremity edema; venous stasis changes NEUROLOGICAL: Cranial nerves II through XII grossly intact. Normal speech, gait not observed. Laboratory Results - last 24 hr 11/04/16 11/04/16 11/04/16 05:35 05:35 06:44 WBC 5.0 RBC 2.97 L Hgb 10.0 L Hct 31.0 L MCV 104.3 H MCHC 32.2 RDW 19.5 H Plt Count 172 MPV 7.3 L Neutrophils % 80.8 Lymphocytes % 8.6 D Monocytes % 10.2 Eosinophils % 0.4 D Basophils % 0.0 Sodium 138 Potassium 4.5 Chloride 91 L Carbon Dioxide 37 H Anion Gap 10 BUN 39 H Creatinine 1.1 POC Glucometer 97 Random Glucose 108 H Calcium 9.2 Active Medications Generic Name Dose Route Start Last Admin Trade Name Omi PRN Reason Stop Dose Admin Chlorhexidine Gluconate 1 applic 10/27/16 22:00 11/03/16 23:20 Hibiclens For Decolonization - TP Not Given HS RUBIA Docusate Sodium 100 mg 10/27/16 10:00 11/03/16 09:47 Colace - PO 100 mg DAILY [facility] Administration Furosemide 40 mg 11/04/16 10:00 Lasix Injection - IVPUSH DAILY RUB[facility] Guaifenesin 10 ml 10/30/16 09:15 11/04/16 06:53 Robitussin - PO 10 ml TID [facility] Administration Guaifenesin/Codeine Phosphate 5 ml 10/31/16 22:00 11/03/16 23:19 Robitussin Ac - PO 5 ml HS [facility] Administration Insulin Aspart 1 vial 10/31/16 11:00 11/04/16 06:53 Novolog Vial Sliding Scale - SQ Not Given ACHS [facility] Protocol Losartan Potassium 25 mg 10/27/16 10:00 11/03/16 09:48 Cozaar - PO 25 mg DAILY R[facility] Administration Melatonin 5 mg 10/30/16 20:00 11/03/16 23:20 Melatonin PO 5 mg HS [facility] Administration Metoprolol Tartrate 25 mg 10/27/16 10:00 11/03/16 23:19 Lopressor - PO 25 mg BID [facility] Administration Nystatin 1 applic 10/27/16 10:00 11/03/16 14:40 Nystop Powder - TP Not Given DAILY R[facility] Pantoprazole Sodium 40 mg 10/30/16 10:00 11/03/16 23:20 Protonix - PO 40 mg BID [facility] Administration Polyethylene Glycol 17 gm 10/27/16 10:00 11/03/16 23:20 Miralax (For Daily Use) - PO 17 gm BID [facility] Administration Prednisone 40 mg/ Prednisone 50 mg 11/03/16 10:00 11/03/16 09:48 10 mg PO 50 mg DAILY [facility] Administration Sodium Chloride 2 spray 10/30/16 15:47 [place] Nasal [place] - NS TID PRN NASAL CONGESTION Spironolactone 25 mg 11/02/16 10:00 11/03/16 23:19 Aldactone - PO 25 mg BID [facility] Administration ASSESSMENT/PLAN 86 year-old male with a PMH of asthma/COPD, anemia, CHF, afib, CAD, ASD s/p repair, pulmonary hypertension, diastolic heart failure, hypertension, hyperlipidemia, and h/o GI bleeding. Admitted in respiratory failure. Acute hypercapnic respiratory failure, resolved Asthma/COPD --continue IV steroids --continue nebs Diastolic heart failure Pulmonary hypertension --continue Lasix IV BID, spironolactone BID --compression stockings CAD --continue metoprolol Atrial fibrillation --s/p Cryo-Maze and NATE ligation --[id number] --currently off anti-coagulation Hypertension --continue losartan, metoprolol Hyperlipidemia --not on medication h/o GI bleed --continue protonix Pancytopenia --possible low grade autoimmune hemolysis triggered by mycoplasma vs MGUS/ myeloma versus lymphoproliferative process --waiting for bone marrow biopsy results Acute on chronic renal insufficiency --Cr was 2.3 on admission, today 1.2, baseline 1.1 F/E/N Fluids: PO intake adequate Electrolytes: replete as indicated Nutrition: sodium controlled DVT prophylaxis: subq heparin, oob, ambulation Dispo: Pending biopsy results. Full Code Visit type - Emergency Visit Emergency Visit: Yes ED Registration Date: 10/22/16 Care time: The patient presented to the Emergency Department on the above date and was hospitalized for further evaluation of their emergent condition. - New Patient This patient is new to me today: No - Critical Care Critical Care patient: No
[2016-11-04] MEDS ORDERED: predniSONE 10 MG TABLET (UD) ONE (09:58)
[2016-11-04] MEDS ORDERED: predniSONE 20 MG TABLET (UD) ONE (09:58)
[2016-11-04] MEDS ORDERED: FUROSEMIDE 40 MG/4 ML INJECTABLE VIAL IVPUSH SCH (10:00)
[2016-11-04] MEDS: DOCUSATE SODIUM 100 MG CAPSULE (FP) PO SCH (10:13)
[2016-11-04] MEDS: SPIRONOLACTONE 25 MG TABLET (FP) PO SCH ×2 (10:13→23:39)
[2016-11-04] MEDS: METOPROLOL TARTRATE 25 MG TABLET (FP) PO SCH ×2 (10:14→23:39)
[2016-11-04] MEDS: PREDNISONE 40 MG, PREDNISONE 10 MG PO SCH (10:14)
[2016-11-04] MEDS: LOSARTAN POTASSIUM 25 MG TABLET PO SCH (10:14)
[2016-11-04] MEDS: PANTOPRAZOLE 40 MG TABLET (FP) PO SCH ×2 (10:14→23:39)
[2016-11-04] MEDS: POLYETHYLENE GLYCOL 3350 119 GM BTL PO SCH ×2 (10:15→23:39)
[2016-11-04] MEDS: NYSTATIN POWDER 100,000 UNITS/GM - 15 GM TOPICAL POWDER TP SCH (10:15)
--- NOTE | 2016-11-04 10:30 | PN ---
Progress Note, Physician History of Present Illness: PULMONARY ALERT,OOB-CHAIR,LESS DYSPNEIC,LESS LOWER EXT EDEMA,WT 199 - Current Medication List Current Medications: Active Medications Chlorhexidine Gluconate (Hibiclens For Decolonization -) 1 applic TP HS [facility] Last Admin: 11/03/16 23:20 Dose: Not Given Docusate Sodium (Colace -) 100 mg PO DAILY [facility] Last Admin: 11/04/16 10:13 Dose: 100 mg Furosemide (Lasix Injection -) 40 mg IVPUSH DAILY [facility] Last Admin: 11/04/16 10:13 Dose: 40 mg Guaifenesin (Robitussin -) 10 ml PO TID [facility] Last Admin: 11/04/16 06:53 Dose: 10 ml Guaifenesin/Codeine Phosphate (Robitussin Ac -) 5 ml PO HS [facility] Last Admin: 11/03/16 23:19 Dose: 5 ml Insulin Aspart (Novolog Vial Sliding Scale -) 1 vial SQ ACHS [facility] PRN Reason: Protocol Last Admin: 11/04/16 06:53 Dose: Not Given Losartan Potassium (Cozaar -) 25 mg PO DAILY [facility] Last Admin: 11/04/16 10:14 Dose: 25 mg Melatonin (Melatonin) 5 mg PO HS [facility] Last Admin: 11/03/16 23:20 Dose: 5 mg Metoprolol Tartrate (Lopressor -) 25 mg PO BID [facility] Last Admin: 11/04/16 10:14 Dose: 25 mg Nystatin (Nystop Powder -) 1 applic TP DAILY [facility] Last Admin: 11/04/16 10:15 Dose: Not Given Pantoprazole Sodium (Protonix -) 40 mg PO BID [facility] Last Admin: 11/04/16 10:14 Dose: 40 mg Polyethylene Glycol (Miralax (For Daily Use) -) 17 gm PO BID [facility] Last Admin: 11/04/16 10:15 Dose: 17 gm Prednisone 40 mg/ Prednisone (10 mg) 50 mg PO DAILY [facility] Last Admin: 11/04/16 10:14 Dose: 50 mg Sodium Chloride ([place] Nasal [place] -) 2 spray NS TID PRN PRN Reason: NASAL CONGESTION Spironolactone (Aldactone -) 25 mg PO BID [facility] Last Admin: 11/04/16 10:13 Dose: 25 mg - Objective Vital Signs: Vital Signs Temperature 98.2 F 11/04/16 08:19 Pulse Rate 84 04/27/17 08:19 Respiratory Rate 18 11/04/16 08:19 Blood Pressure 108/58 11/04/16 08:19 O2 Sat by Pulse Oximetry (%) 96 11/03/16 09:00 Constitutional: Yes: Well Nourished, Calm Eyes: Yes: WNL HENT: Yes: WNL Neck: Yes: WNL Cardiovascular: Yes: Pulse Irregular, S1, S2 Respiratory: Yes: Rales (BIBASILAR RALES) Gastrointestinal: Yes: Normal Bowel Sounds, Soft Extremities: Yes: WNL Edema: Yes Edema: LLE: 1+, RLE: 1+ Labs: CBC, BMP 11/04/16 05:35 11/04/16 05:35 INR, PTT INR 1.14 (0.82-1.09) D 10/29/16 11:00 Problem List - Problems (1) Aspiration into respiratory tract Code(s): T17.908A - UNSP FB IN RESP TRACT, PART UNSP CAUSING OTH INJURY, INIT Qualifiers: Qualified Code(s): T17.908A - Unspecified foreign body in respiratory tract, part unspecified causing other injury, initial encounter (2) CO2 narcosis Code(s): R06.89 - OTHER ABNORMALITIES OF BREATHING (3) COPD (chronic obstructive pulmonary disease) Code(s): J44.9 - CHRONIC OBSTRUCTIVE PULMONARY DISEASE, UNSPECIFIED Qualifiers : Qualified Code(s): J44.9 - Chronic obstructive pulmonary disease, unspecified (4) Anemia Code(s): D64.9 - ANEMIA, UNSPECIFIED (5) GI bleed Code(s): K92.2 - GASTROINTESTINAL HEMORRHAGE, UNSPECIFIED Qualifiers: Qualified Code(s): K57.91 - Diverticulosis of intestine, part unspecified, without perforation or abscess with bleeding (6) Severe anemia Code(s): D64.9 - ANEMIA, UNSPECIFIED (7) Shortness of breath Code(s): R06.02 - SHORTNESS OF BREATH (8) Systolic and diastolic CHF, acute on chronic Code(s): I50.43 - ACUTE ON CHRONIC COMBINED SYSTOLIC AND DIASTOLIC HRT FAIL (9) Atrial fibrillation Code(s): I48.91 - UNSPECIFIED ATRIAL FIBRILLATION Qualifiers: Qualified Code(s): I48.1 - Persistent atrial fibrillation (10) CAD (coronary artery disease) Code(s): I25.10 - ATHSCL HEART DISEASE OF [place] CORONARY ARTERY W/O ANG PCTRS Qualifiers: Qualified Code(s): I25.10 - Atherosclerotic heart disease of [place] coronary artery without angina pectoris (11) Hypercholesterolemia Code(s): E78.0 - PURE HYPERCHOLESTEROLEMIA * DO NOT USE * (12) Hypertension Code(s): I10 - ESSENTIAL (PRIMARY) HYPERTENSION Qualifiers: Qualified Code(s): I10 - Essential (primary) hypertension Assessment/Plan ASSESSMENT AND PLAN: s/p Acute Hypercapneic Respiratory Failure improved Acute COPD Exacerbation improved LV Diastolic Dysfunction Pulmonary HTN CAD Atrial Fibrillation HTN CKD ASD s/p repair r/o myeloproliferative disorder - Prednisone 50mg dily - continue iv lasix and aldactone as per cardiology - inhaled bronchodilators - monitor CBC - DVT/GI prophylaxis - anti-tussives - daily wts - path pending DR ANAND
--- NOTE | 2016-11-04 11:56 | PN ---
Progress Note, Physician History of Present Illness: Comfortable OOB to chair. 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 Dyspnea and LE edema improving with increased diuresis. - Current Medication List Current Medications: Active Medications Chlorhexidine Gluconate (Hibiclens For Decolonization -) 1 applic TP HS [facility] Last Admin: 11/03/16 23:20 Dose: Not Given Docusate Sodium (Colace -) 100 mg PO DAILY [facility] Last Admin: 11/04/16 10:13 Dose: 100 mg Furosemide (Lasix Injection -) 40 mg IVPUSH DAILY [facility] Last Admin: 11/04/16 10:13 Dose: 40 mg Guaifenesin (Robitussin -) 10 ml PO TID [facility] Last Admin: 11/04/16 06:53 Dose: 10 ml Guaifenesin/Codeine Phosphate (Robitussin Ac -) 5 ml PO HS [facility] Last Admin: 11/03/16 23:19 Dose: 5 ml Insulin Aspart (Novolog Vial Sliding Scale -) 1 vial SQ ACHS [facility] PRN Reason: Protocol Last Admin: 11/04/16 06:53 Dose: Not Given Losartan Potassium (Cozaar -) 25 mg PO DAILY [facility] Last Admin: 11/04/16 10:14 Dose: 25 mg Melatonin (Melatonin) 5 mg PO HS [facility] Last Admin: 11/03/16 23:20 Dose: 5 mg Metoprolol Tartrate (Lopressor -) 25 mg PO BID [facility] Last Admin: 11/04/16 10:14 Dose: 25 mg Nystatin (Nystop Powder -) 1 applic TP DAILY [facility] Last Admin: 11/04/16 10:15 Dose: Not Given Pantoprazole Sodium (Protonix -) 40 mg PO BID [facility] Last Admin: 11/04/16 10:14 Dose: 40 mg Polyethylene Glycol (Miralax (For Daily Use) -) 17 gm PO BID [facility] Last Admin: 11/04/16 10:15 Dose: 17 gm Prednisone 40 mg/ Prednisone (10 mg) 50 mg PO DAILY [facility] Last Admin: 11/04/16 10:14 Dose: 50 mg Sodium Chloride ([place] Nasal [place] -) 2 spray NS TID PRN PRN Reason: NASAL CONGESTION Spironolactone (Aldactone -) 25 mg PO BID [facility] Last Admin: 11/04/16 10:13 Dose: 25 mg - Objective Vital Signs: Vital Signs Temperature 98.2 F 11/04/16 08:19 Pulse Rate 84 11/04/16 08:19 Respiratory Rate 18 11/04/16 08:19 Blood Pressure 108/58 11/04/16 08:19 O2 Sat by Pulse Oximetry (%) 96 11/03/16 09:00 Constitutional: Yes: No Distress, Calm Neck: Yes: Supple Cardiovascular: Yes: Pulse Irregular Respiratory: Yes: Regular, Diminished Gastrointestinal: Yes: Normal Bowel Sounds, Soft, Abdomen, Obese Edema: Yes Edema: LLE: 1+, RLE: 1+ Labs: CBC, BMP 11/04/16 05:35 11/04/16 05:35 INR, PTT INR 1.14 (0.82-1.09) D 10/29/16 11:00 - ....Imaging EKG: Report Reviewed (Afib RBBB) Problem List - Problems (1) COPD (chronic obstructive pulmonary disease) Code(s): J44.9 - CHRONIC OBSTRUCTIVE PULMONARY DISEASE, UNSPECIFIED Qualifiers : Qualified Code(s): J44.9 - Chronic obstructive pulmonary disease, unspecified (2) Severe anemia Code(s): D64.9 - ANEMIA, UNSPECIFIED (3) Shortness of breath Code(s): R06.02 - SHORTNESS OF BREATH (4) Systolic and diastolic CHF, acute on chronic Code(s): I50.43 - ACUTE ON CHRONIC COMBINED SYSTOLIC AND DIASTOLIC HRT FAIL (5) Atrial fibrillation Code(s): I48.91 - UNSPECIFIED ATRIAL FIBRILLATION Qualifiers: Qualified Code(s): I48.1 - Persistent atrial fibrillation (6) CAD (coronary artery disease) Code(s): I25.10 - ATHSCL HEART DISEASE OF [place] CORONARY ARTERY W/O ANG PCTRS Qualifiers: Qualified Code(s): I25.10 - Atherosclerotic heart disease of [place] coronary artery without angina pectoris (7) H/O atrial septal defect repair Code(s): Z98.89 - OTHER SPECIFIED POSTPROCEDURAL STATES * DO NOT USE * Z87.74 - PERSONAL HISTORY OF CONGENITAL MALFORM OF HEART AND CIRC SYS (8) Hypercholesterolemia Code(s): E78.0 - PURE HYPERCHOLESTEROLEMIA * DO NOT USE * (9) Hypertension Code(s): I10 - ESSENTIAL (PRIMARY) HYPERTENSION Qualifiers: Qualified Code(s): I10 - Essential (primary) hypertension (10) Right bundle branch block Code(s): I45.10 - UNSPECIFIED RIGHT BUNDLE-BRANCH BLOCK Assessment/Plan 1. Acute on chronic diastolic failure improving 2. 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 Persistent atrial fibrillation post Cryo-Maze and NATE ligation, [id number] score of 5, currently off of A/C 4. Moderate to severe degree of pulmonary HTN 5. Post acute hypercapneic respiratory failure etiology probably multi- factorial acute exacerbation of COPD, underlying anemia, post extubation 6. 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 HTN 8. Hypercholesterolemia 9. ASD post surgical repair 10. CKD PLAN: 1. Decrease Lasix 40 po qd and Aldactone 25 bid 2. Continue Lopressor 25 bid, hemodynamics permitting 3. Continue Cozaar 25 qd hemodynamics permitting with close monitoring of renal function 4. As outlined in prior notes recommend withholding Coumadin therapy at this point indefinitely recognizing elevated stroke risk ([id number] score of 5) considering the above noted presentation, patient not a candidate for Watchman device insertion, history of NATE ligation 5. Transfuse to maintain Hg equal or > 8.0 6. Steroids with GI protection as per the primary team, DVT prophylaxis, await bone marrow results
[2016-11-04 13:17] LABS: ANISOCYTOSIS 1+
[2016-11-04] MEDS ORDERED: ALBUTEROL SO4 6.7 GM HFA INHALER IH PRN (14:35)
[2016-11-04] MEDS ORDERED: ALBUTEROL SO4 0.083% IH SOL 2.5 MG/3 ML VIAL.NEB. NEB ONE (14:36)
--- NOTE | 2016-11-04 22:58 | PN ---
Progress Note (short form) - Note Progress Note: patient seen and examined 11/03 and 11/04/16 feels better AFVSS Cor: RSR, No murmurs, No gallops Lungs: Clear to P&A Abd: Soft, Normal bowel sounds, No organomegaly Ext:stasis dermatitis Labs/meds reviewed A/P 86 y/o patient with anemia, + benson agglutinin + cold agglutinin nl LDH/haptoglobin ? extravascular hemolysis + mycoplasma titers--s/o recent mycoplasma inf.--discussed with ID B12/TSH--nl IgM monoclonal protein : SFLCA --Lambda light chains--1000s Flow shows -- monoclonal B cell population,nonspecific immunophenotype. Lambda light chains elevated in 1000s, ratio 0.03 BMBX pending ?? MGUS related to aging vs r/o lymphoproliferative process vs MDS Splenomegaly on CT scans --?? occult liver disease as cause of cytopenias vs lymphoproliferative process Pancytopenia has improved -- clinical picture seems to be from passive congestion due to dCHF causing pancytopenia from coonsumption + liver disease ? + occult gi bleed + r/o underlying lowgrade bone marrow pathology-- lyphoproliferative disorder and associated auto immune dissease improved with diuresis, coming off a/c ,? steroids Will taper to prednisone 40 mg at discharge with protonix. will need close CBC monitoring as out patient --patient seems to prefer home blood draws
[2016-11-04] MEDS ORDERED: PT OWN MED DRAWER 7, Y5N ONE (23:36)
[2016-11-04] MEDS: MELATONIN 5 MG TABLETS PO SCH (23:39)
[2016-11-04] MEDS: guaiFENesin/CODEINE 5 ML UNIT-DOSE CUPS PO SCH (23:39)
[2016-11-04] MEDS: CHLORHEXIDINE GLUCONATE 4% CLEANSER FOR DECOLONIZATION TP SCH (23:42)
[2016-11-05] MEDS: guaiFENesin 200 MG/10 ML 10 ML UNIT-DOSE CUPS PO SCH ×3 (06:12→23:09)
[2016-11-05] MEDS: INSULIN SLIDING SCALE (NOVOLOG) 1 VIAL SQ SCH ×4 (06:13→23:17)
[2016-11-05] MEDS ORDERED: predniSONE 10 MG TABLET (UD) ONE (09:41)
[2016-11-05] MEDS ORDERED: predniSONE 20 MG TABLET (UD) ONE (09:42)
[2016-11-05] MEDS: FUROSEMIDE 40 MG TABLET (FP) PO SCH (09:59)
[2016-11-05] MEDS: PREDNISONE 40 MG, PREDNISONE 10 MG PO SCH (09:59)
[2016-11-05] MEDS: SPIRONOLACTONE 25 MG TABLET (FP) PO SCH ×2 (09:59→23:09)
[2016-11-05] MEDS: LOSARTAN POTASSIUM 25 MG TABLET PO SCH (10:00)
[2016-11-05] MEDS: PANTOPRAZOLE 40 MG TABLET (FP) PO SCH ×2 (10:00→23:09)
[2016-11-05] MEDS: METOPROLOL TARTRATE 25 MG TABLET (FP) PO SCH ×2 (10:00→23:09)
[2016-11-05] MEDS: DOCUSATE SODIUM 100 MG CAPSULE (FP) PO SCH (10:00)
[2016-11-05] MEDS: NYSTATIN POWDER 100,000 UNITS/GM - 15 GM TOPICAL POWDER TP SCH (10:17)
[2016-11-05] MEDS: POLYETHYLENE GLYCOL 3350 119 GM BTL PO SCH ×2 (10:17→23:10)
--- NOTE | 2016-11-05 11:17 | DS ---
Physical Examination Vital Signs: Vital Signs Temperature 98.4 F 11/05/16 01:55 Pulse Rate 82 11/05/16 05:00 Respiratory Rate 20 11/05/16 05:00 Blood Pressure 107/58 11/05/16 05:00 O2 Sat by Pulse Oximetry (%) 95 11/04/16 21:00 Findings/Remarks: 86 W MALE ADMITTED W HYPOXEMIC RESP FAILURE REQUIRING INTUBATION. PATIENT WAS FOUND TO BE PANCYTOPENIC DURING THIS ADMISSION AND RECENTLY HAD A GI BLD THE PRIOR MONTH REQUIRING THREE PRBC'S. PATIENT WAS SUBSEQUENTLY DISCHARGED AND RETURNED TO ER TWO DAYS LATER IN ABOVE RESP FAILURE. HE REQUIRED REPEAT TRANSFUSIONS AND HAD A BM BX WHICH IS STILL PENDING. 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 HE ALSO HAS A HX OF AF FOR WHICH HE WAS ON WARFARIN WHICH HAS NOW BEEN DISCONTINUED. HE HAS A H/O COPD, LVDD,CAD SINGLE VESSEL,S/P CRYOMAZE,ASD CLOSURE,PULMONARY HTN,NATE LIGATION,HTN,HPL,CKD. HE WILL BE DISCHARGED TOMORROW ON TAPERING DOSES OF PREDNISONE AND ADJUSTMENT OF HIS CARDIAC MEDS. HE HAS HOME 02. Constitutional: Yes: No Distress Eyes: Yes: Conjunctiva Clear HENT: Yes: Normocephalic Neck: Yes: Trachea Midline Cardiovascular: Yes: S1, S2 Respiratory: Yes: Regular Gastrointestinal: Yes: Normal Bowel Sounds Edema: LLE: 2+, RLE: 2+ Integumentary: Yes: Skin Tear Neurological: Yes: WNL Labs: CBC, BMP 11/04/16 05:35 11/04/16 05:35 REST REVIEWED R CLARA DANIELS Discharge Summary Reason For Visit: COPD,CARBON DIOXIDE NARCOSIS Current Active Problems Abnormal liver function tests (Acute) Aspiration into respiratory tract (Acute) CO2 narcosis (Acute) COPD (chronic obstructive pulmonary disease) (Acute) Respirations compromised (Acute) Condition: Critical - Instructions Referrals: Ean Pfeiffer MD [Primary Care Provider] - - Home Medications Comprehensive Discharge Medication List: Ambulatory Orders Losartan Potassium [Cozaar] 25 mg PO DAILY 10/18/16 Albuterol Sulfate Inhaler - [Ventolin HFA Inhaler -] 2 puff IH PRN #1 inhaler Furosemide [Lasix -] 40 mg PO DAILY #30 tablet 10/20/16 Albuterol Sulfate Inhaler - [Ventolin HFA Inhaler -] 2 puff IH Q4H PRN #30 inhaler 11/05/16 Furosemide [Lasix -] 40 mg PO DAILY tablet 11/05/16 Losartan Potassium [Cozaar -] 25 mg PO DAILY tablet 11/05/16 Melatonin 5 mg PO HS tab 11/05/16 Metoprolol Tartrate [Lopressor -] 25 mg PO BID #60 tablet 11/05/16 Pantoprazole Sodium [Protonix -] 40 mg PO BID #60 tab 11/05/16 Polyethylene Glycol 3350 [Miralax 119 gm Btl -] 17 gm PO BID bottle 11/05/16 Prednisone [Deltasone -] 20 mg PO UTDICT #60 tablet 11/05/16 Spironolactone [Aldactone -] 25 mg PO BID #60 tablet 11/05/16
[2016-11-05] MEDS: ALBUTEROL SO4 2.5/IPRATROPIUM 0.5 INH SOL 3 ML VIAL.NEB. NEB SCH ×3 (12:08→23:18)
--- NOTE | 2016-11-05 14:10 | PN ---
Progress Note, Physician History of Present Illness: Comfortable OOB to chair. 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 Dyspnea and LE edema improving with increased diuresis. - Current Medication List Current Medications: Active Medications Albuterol Sulfate (Ventolin Hfa Inhaler -) 2 puff IH Q4H PRN PRN Reason: SHORT OF BREATH/WHEEZING Albuterol/Ipratropium (Duoneb -) 1 amp NEB QIDR [facility] Last Admin: 11/05/16 12:08 Dose: 1 amp Chlorhexidine Gluconate (Hibiclens For Decolonization -) 1 applic TP HS [facility] Last Admin: 11/04/16 23:42 Dose: Not Given Docusate Sodium (Colace -) 100 mg PO DAILY [facility] Last Admin: 11/05/16 10:00 Dose: 100 mg Furosemide (Lasix -) 40 mg PO DAILY [facility] Last Admin: 11/05/16 09:59 Dose: 40 mg Guaifenesin (Robitussin -) 10 ml PO TID [facility] Last Admin: 11/05/16 06:12 Dose: 10 ml Guaifenesin/Codeine Phosphate (Robitussin Ac -) 5 ml PO HS [facility] Last Admin: 11/04/16 23:39 Dose: 5 ml Insulin Aspart (Novolog Vial Sliding Scale -) 1 vial SQ ACHS [facility] PRN Reason: Protocol Last Admin: 11/05/16 06:13 Dose: Not Given Losartan Potassium (Cozaar -) 25 mg PO DAILY [facility] Last Admin: 11/05/16 10:00 Dose: 25 mg Melatonin (Melatonin) 5 mg PO HS [facility] Last Admin: 11/04/16 23:39 Dose: 5 mg Metoprolol Tartrate (Lopressor -) 25 mg PO BID [facility] Last Admin: 11/05/16 10:00 Dose: 25 mg Nystatin (Nystop Powder -) 1 applic TP DAILY [facility] Last Admin: 11/04/16 10:15 Dose: Not Given Pantoprazole Sodium (Protonix -) 40 mg PO BID [facility] Last Admin: 11/05/16 10:00 Dose: 40 mg Polyethylene Glycol (Miralax (For Daily Use) -) 17 gm PO BID [facility] Last Admin: 11/04/16 23:39 Dose: 17 gm Prednisone 40 mg/ Prednisone (10 mg) 50 mg PO DAILY [facility] Last Admin: 11/05/16 09:59 Dose: 50 mg Sodium Chloride ([place] Nasal [place] -) 2 spray NS TID PRN PRN Reason: NASAL CONGESTION Spironolactone (Aldactone -) 25 mg PO BID [facility] Last Admin: 11/05/16 09:59 Dose: 25 mg - Objective Vital Signs: Vital Signs Temperature 97.8 F 11/05/16 09:00 Pulse Rate 101 H 11/05/16 09:00 Respiratory Rate 20 11/05/16 09:00 Blood Pressure 101/51 11/05/16 09:00 O2 Sat by Pulse Oximetry (%) 100 11/05/16 09:00 Constitutional: Yes: No Distress, Calm Neck: Yes: Supple Cardiovascular: Yes: Regular Rate and Rhythm Respiratory: Yes: Regular, Diminished, On Nasal O2 Gastrointestinal: Yes: Normal Bowel Sounds, Soft, Abdomen, Obese Edema: LLE: Trace, RLE: Trace Labs: CBC, BMP 11/04/16 05:35 11/04/16 05:35 INR, PTT INR 1.14 (0.82-1.09) D 10/29/16 11:00 Problem List - Problems (1) COPD (chronic obstructive pulmonary disease) Code(s): J44.9 - CHRONIC OBSTRUCTIVE PULMONARY DISEASE, UNSPECIFIED Qualifiers : Qualified Code(s): J44.9 - Chronic obstructive pulmonary disease, unspecified (2) Severe anemia Code(s): D64.9 - ANEMIA, UNSPECIFIED (3) Shortness of breath Code(s): R06.02 - SHORTNESS OF BREATH (4) Systolic and diastolic CHF, acute on chronic Code(s): I50.43 - ACUTE ON CHRONIC COMBINED SYSTOLIC AND DIASTOLIC HRT FAIL (5) Atrial fibrillation Code(s): I48.91 - UNSPECIFIED ATRIAL FIBRILLATION Qualifiers: Qualified Code(s): I48.1 - Persistent atrial fibrillation (6) CAD (coronary artery disease) Code(s): I25.10 - ATHSCL HEART DISEASE OF [place] CORONARY ARTERY W/O ANG PCTRS Qualifiers: Qualified Code(s): I25.10 - Atherosclerotic heart disease of [place] coronary artery without angina pectoris (7) H/O atrial septal defect repair Code(s): Z98.89 - OTHER SPECIFIED POSTPROCEDURAL STATES * DO NOT USE * Z87.74 - PERSONAL HISTORY OF CONGENITAL MALFORM OF HEART AND CIRC SYS (8) Hypercholesterolemia Code(s): E78.0 - PURE HYPERCHOLESTEROLEMIA * DO NOT USE * (9) Hypertension Code(s): I10 - ESSENTIAL (PRIMARY) HYPERTENSION Qualifiers: Qualified Code(s): I10 - Essential (primary) hypertension (10) Right bundle branch block Code(s): I45.10 - UNSPECIFIED RIGHT BUNDLE-BRANCH BLOCK Assessment/Plan 1. Acute on chronic diastolic failure improving 2. 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 Persistent atrial fibrillation post Cryo-Maze and NATE ligation, [id number] score of 5, currently off of A/C 4. Moderate to severe degree of pulmonary HTN 5. Post acute hypercapneic respiratory failure etiology probably multi- factorial acute exacerbation of COPD, underlying anemia, post extubation 6. 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 HTN 8. Hypercholesterolemia 9. ASD post surgical repair 10. CKD PLAN: 1. Continue Lasix 40 po qd and Aldactone 25 bid 2. Continue Lopressor 25 bid, hemodynamics permitting 3. Continue Cozaar 25 qd hemodynamics permitting with close monitoring of renal function 4. As outlined in prior notes recommend withholding Coumadin therapy at this point indefinitely recognizing elevated stroke risk ([id number] score of 5) considering the above noted presentation, patient not a candidate for Watchman device insertion, history of NATE ligation 5. Transfuse to maintain Hg equal or > 8.0 6. Steroid taper with GI protection as per the primary team, DVT prophylaxis, await bone marrow results 7. D/c planning for AM
--- NOTE | 2016-11-05 17:02 | PATH ---
Surgical Pathology Report Patient Name: GIRISH ELIZABETH Med. Rec. #: [id number] /Age/Gender: 1930 (Age: 86) / M Account: [id number] Location: 4 W TELEMETRY U Taken: 10/29/2016 Received: 10/29/2016 Reported: 11/05/2016 Physicians: Shorty Mcneil M.D. Robert DeMatteo, M.D. Specimen(s) Received A: BONE MARROW BIOPSY B: BONE MARROW CLOT C: BONE MARROW ASPIRATION SMEARS D: BONE MARROW BLOOD Clinical History Pancytopenia Rule out lymphoplasmacytic lymphoma, lymphoproliferative disorder, plasma cell dyscrasia, MDS Final Diagnosis A,B,C. 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 MATURING MYELOID ELEMENTS WITH SLIGHT ERYTHROID HYPERPLASIA AND GRANULOCYTIC HYPOPLASIA. Comment: Flow cytometry performed on a concurrent aspirate sample detected a clonal B-cell population with non-specific immunophenotype, 3% of total events. The differential diagnosis includes bone marrow involvement by marginal zone lymphoma or lymphoplasmacytic lymphoma. The plasma cells are 3-5% of total cells in this biopsy. Molecular studies for MYD88 mutation are currently pending. The case was discussed with Dr. Corbin on 11/05/16. Note: This case was seen in consultation with hematopathology service at [place], [place] ([id number]). The diagnosis above reflects the consultation opinion. The biopsy shows normocellular (25-30%) bone marrow with maturing trilineage hematopoiesis, there is focal interstitial hemorrhage. The clot and aspirate smears show only rare marrow elements. The M:E ratio is decreased due to a slight erythroid hyperplasia and granulocytic hypoplasia; mature neutrophils are decreased. CD34+ myeloblasts are not increased. The megakaryocytes are morphologically unremarkable. Focally increased csfec-[id number]-erjs lymphocytes are seen. Immunostains demonstrate B-cell predominance with interstitial/intrasinusoidal and focally paratrabecular components. Plasma cells are 3-5% as highlighted by CD138 immunostain. Reticulin stain shows focal slight increase in reticulin fibers. Stainable iron is not detected on iron stain; however, iron stain on core biopsies is not as sensitive as on aspirate smears. Immunostains performed and interpreted at [facility] show the following: CD34 and CD117 immunostain highlights immature precursors; CD71 highlights erythroid precursors. CD20 and PAX5 highlights B-cells (10-15%). CD3 highlights T-cells. CD138 highlights plasma cells (3-5%). D. BONE MARROW, FLOW CYTOMETRY: Flow Cytometry ([id number]) performed and interpreted at [place], [place] showed the following: Interpretation: Clonal B-cell population with nonspecific immunophenotype. 3% of total events is detected (see comment). There is no evidence of T-cell proliferative disorders, increased blasts or detectable clonal plasma cells. Comment: the significance of the small clonal B-cell population is uncertain. The differential diagnosis includes incidental finding (monoclonal B-lymphocytosis, MB) and low level bone marrow involvement by a low grade B-cell lymphoproliferative process with nonspecific immunophenotype, such as marginal zone or lymphoplasmacytic lymphoma. Phenotype: There is a mixed population of maturing myeloid cells, B cells and T cells. No abnormal myeloid maturation is seen. There is no increase in CD34+ blasts and they comprise < 0.1% of total cells. Myeloid cells are 90% and monocytes are 4% of total cells. The T-cells (1.5% of total) show no benson T-cell antigen deletion. The plasma cells are rare (<0.1% of total), clonality cannot be demonstrated. A clonal (Lambda, moderate) B-cell population with dim-moderate CD19 and moderate CD20 expression, negative for CK5, CK10 and CD11c, 3% of total events, is detected. CYTOGENETIC KARYOTYPE ANALYSIS PERFORMED AND INTERPRETED AT [facility], [place], [place] ([id number]) SHOWED THE FOLLOWING: Test results: Tissue Culture Failure. Diagnostic interpretation: This specimen did not produce sufficient analyzable metaphase cells and, therefore, chromosome analysis is not possible. Electronically Signed Abraham Yan M.D. Addendum Reported: 11/09/2016 Addendum Diagnosis Molecular Pathology Report received from [facility] in [place], [place] ([id number]) shows the following: RESULTS: Negative for MYD88 L265P mutation INTERPRETATION: Negative for MYD88 L265P mutation Analytical results: Assay type: MYD88 Gene mutation Exon 5 Detection parameters: L265P Result: Not detected. See [facility] report for additional details. Harish Hewitt M.D. Gross Description A. Received in formalin, labeled with the patient's name and indicated on the requisition to be a bone marrow biopsy, is a 1.6 cm in length x 0.1 cm in diameter quintanilla, cylindrical portion of bone. The specimen is submitted in toto in one cassette, following decalcification. B. Received fresh, labeled with the patient's name and indicated on the requisition to be a bone marrow clot, is a 1.7 x 1.6 x 0.3 cm aggregate of red-brown blood clot. The specimen is submitted in toto in one cassette. C. Received are 9 bone marrow aspiration smear slides. D. Received are 2 green top tubes of bone marrow blood which are sent to [facility]. 10/29/201610/29/2016
--- NOTE | 2016-11-05 17:04 | PN ---
Progress Note (short form) - Note Progress Note: Patient seen and examined Overall improved Remains SOB and with YOUSSEF Last Vital Signs Temp Pulse Resp BP Pulse Ox 97.8 F 84 20 98/53 100 11/05/16 14:00 11/05/16 14:00 11/05/16 14:00 11/05/16 14:00 11/05/16 09:00 HEENT: TAM, EOM Intact Oropharynx: No thrush, No mucositis CBC, BMP 11/04/16 05:35 11/04/16 05:35 Current Medications Generic Name Dose Route Start Last Admin Trade Name Freq PRN Reason Stop Dose Admin Albuterol Sulfate 2 puff 11/04/16 14:35 Ventolin Hfa Inhaler - IH Q4H PRN SHORT OF BREATH/WHEEZING Albuterol/Ipratropium 1 amp 11/05/16 12:00 11/05/16 12:08 Duoneb - NEB 1 amp QIDR RUBIA Administration Chlorhexidine Gluconate 1 applic 10/27/16 22:00 11/04/16 23:42 Hibiclens For Decolonization - TP Not Given HS RUBIA Docusate Sodium 100 mg 10/27/16 10:00 11/05/16 10:00 Colace - PO 100 mg DAILY RUBIA Administration Furosemide 40 mg 11/05/16 10:00 11/05/16 09:59 Lasix - PO 40 mg DAILY RUBIA Administration Guaifenesin 10 ml 10/30/16 09:15 11/05/16 06:12 Robitussin - PO 10 ml TID RUBIA Administration Guaifenesin/Codeine Phosphate 5 ml 10/31/16 22:00 11/04/16 23:39 Robitussin Ac - PO 5 ml HS RUBIA Administration Insulin Aspart 1 vial 10/31/16 11:00 11/05/16 06:13 Novolog Vial Sliding Scale - SQ Not Given ACHS RUBIA Protocol Losartan Potassium 25 mg 10/27/16 10:00 11/05/16 10:00 Cozaar - PO 25 mg DAILY RUBIA Administration Melatonin 5 mg 10/30/16 20:00 11/04/16 23:39 Melatonin PO 5 mg HS RUBIA Administration Metoprolol Tartrate 25 mg 10/27/16 10:00 11/05/16 10:00 Lopressor - PO 25 mg BID RUBIA Administration Nystatin 1 applic 10/27/16 10:00 11/04/16 10:15 Nystop Powder - TP Not Given DAILY RUBIA Pantoprazole Sodium 40 mg 10/30/16 10:00 11/05/16 10:00 Protonix - PO 40 mg BID RUBIA Administration Polyethylene Glycol 17 gm 10/27/16 10:00 11/04/16 23:39 Miralax (For Daily Use) - PO 17 gm BID RUBIA Administration Prednisone 40 mg/ Prednisone 50 mg 11/03/16 10:00 11/05/16 09:59 10 mg PO 50 mg DAILY RUBIA Administration Sodium Chloride 2 spray 10/30/16 15:47 [place]al [place] - NS TID PRN NASAL CONGESTION Spironolactone 25 mg 11/02/16 10:00 11/05/16 09:59 Aldactone - PO 25 mg BID RUBIA Administration Cor: atrial fib Lungs: Rales bilateral at bases Abd: Soft, Normal bowel sounds, No organomegaly Ext:No significant edema Skin: No rashes, Integument intact Impression: Improvement In hemogram ?? secondary to steroids ?? secondary to improvement in congestion ?? other. 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 Needs surveillance.
[2016-11-05] MEDS ORDERED: INSULIN (NOVOLOG) ASPART 100 UNITS/ML 10ML VIAL ONE (17:45)
[2016-11-05] MEDS ORDERED: PT OWN MED DRAWER 7, Y5N ONE (22:59)
[2016-11-05] MEDS: CHLORHEXIDINE GLUCONATE 4% CLEANSER FOR DECOLONIZATION TP SCH (23:09)
[2016-11-05] MEDS: guaiFENesin/CODEINE 5 ML UNIT-DOSE CUPS PO SCH (23:09)
[2016-11-05] MEDS: MELATONIN 5 MG TABLETS PO SCH (23:09)
[2016-11-06] MEDS: INSULIN SLIDING SCALE (NOVOLOG) 1 VIAL SQ SCH (06:30)
[2016-11-06] MEDS: guaiFENesin 200 MG/10 ML 10 ML UNIT-DOSE CUPS PO SCH (06:34)
[2016-11-06] MEDS: ALBUTEROL SO4 2.5/IPRATROPIUM 0.5 INH SOL 3 ML VIAL.NEB. NEB SCH (07:12)
[2016-11-06] MEDS ORDERED: predniSONE 10 MG TABLET (UD) ONE (08:46)
[2016-11-06] MEDS ORDERED: predniSONE 20 MG TABLET (UD) ONE (08:46)
[2016-11-06] MEDS: DOCUSATE SODIUM 100 MG CAPSULE (FP) PO SCH (08:52)
[2016-11-06] MEDS: LOSARTAN POTASSIUM 25 MG TABLET PO SCH (08:52)
[2016-11-06] MEDS: SPIRONOLACTONE 25 MG TABLET (FP) PO SCH (08:52)
[2016-11-06] MEDS: PREDNISONE 40 MG, PREDNISONE 10 MG PO SCH (08:53)
[2016-11-06] MEDS: PANTOPRAZOLE 40 MG TABLET (FP) PO SCH (08:53)
[2016-11-06] MEDS: FUROSEMIDE 40 MG TABLET (FP) PO SCH (08:53)
[2016-11-06] MEDS: METOPROLOL TARTRATE 25 MG TABLET (FP) PO SCH (08:54)
[2016-11-06] MEDS: POLYETHYLENE GLYCOL 3350 119 GM BTL PO SCH (09:04)
[2016-11-06] MEDS: NYSTATIN POWDER 100,000 UNITS/GM - 15 GM TOPICAL POWDER TP SCH (09:04)
[2016-11-06 09:14] VITALS: BP 111/56; PULSE 88; TEMP 98.2
== END 2016-11-06 09:07 | disposition home or self-care (01) | DRG 208 ==
LOC: JER 09:58 → JERBED 11:01 → JICU 11:55 → J4W 10-27 22:34
PROVIDERS: ADMIT Specialist; ATTEND Nurse Practitioner Acute Care
PROC: 5A1935Z Respiratory Ventilation, Less than 24 Consecutive Hours (ICD-10-PCS; principal; 2016-10-22)
PROC: 0BH17EZ Insertion of Endotracheal Airway into Trachea, Via Natural or Artificial Opening (ICD-10-PCS; 2016-10-22)
PROC: 30233N1 Transfusion of Nonautologous Red Blood Cells into Peripheral Vein, Percutaneous Approach (ICD-10-PCS; 2016-10-22)
PROC: 05HM33Z Insertion of Infusion Device into Right Internal Jugular Vein, Percutaneous Approach (ICD-10-PCS; 2016-10-22)
PROC: B543ZZA Ultrasonography of Right Jugular Veins, Guidance (ICD-10-PCS; 2016-10-22)
PROC: 07DR3ZX Extraction of Iliac Bone Marrow, Percutaneous Approach, Diagnostic (ICD-10-PCS; 2016-10-29)
DX: J96.02 Acute respiratory failure with hypercapnia (principal); I50.43 Acute on chronic combined systolic (congestive) and diastolic (congestive) heart failure; K57.91 Diverticulosis of intestine, part unspecified, without perforation or abscess with bleeding; J44.1 Chronic obstructive pulmonary disease with (acute) exacerbation; I13.0 Hypertensive heart and chronic kidney disease with heart failure and stage 1 through stage 4 chronic kidney disease, or unspecified chronic kidney disease; C85.90 Non-Hodgkin lymphoma, unspecified, unspecified site; N17.9 Acute kidney failure, unspecified; D61.818 Other pancytopenia; E87.2 Acidosis; D62 Acute posthemorrhagic anemia; D59.1 Other autoimmune hemolytic anemias; D50.9 Iron deficiency anemia, unspecified; I27.2 Other secondary pulmonary hypertension; N18.9 Chronic kidney disease, unspecified; I48.91 Unspecified atrial fibrillation; Z79.01 Long term (current) use of anticoagulants; I45.10 Unspecified right bundle-branch block; I25.119 Atherosclerotic heart disease of native coronary artery with unspecified angina pectoris; K76.0 Fatty (change of) liver, not elsewhere classified; R60.0 Localized edema; Z87.74 Personal history of (corrected) congenital malformations of heart and circulatory system; K64.8 Other hemorrhoids; R04.0 Epistaxis; R16.1 Splenomegaly, not elsewhere classified
CPT/HCPCS: 36415; 36430; 36600; 71010-TC; 71250-TC; 74176-TC; 76700-TC; 80048; 80053; 80076; 80307; 81003; 81015; 82248; 82272; 82550; 82595; 82607; 82728; 82747; 82784; 82803; 83010; 83036; 83540; 83550; 83605; 83615; 83690; 83735; 83880; 83883; 84100; 84484; 84550; 85014; 85025; 85027; 85044; 85610; 85651; 85730; 86140; 86157; 86704; 86706; 86708; 86850; 86870; 86880; 86900; 86901; 86902; 86922; 87040; 87070; 87086; 87205; 87254; 87340; 87804; 88300-TC; 88305-TC; 88311-TC; 88313-TC; 93005; 93010; 94002; 94640; 97116-GP; 97161-GP; 99285-25; J1644; P9038; P9058

== ENCOUNTER 2017-01-21 12:00 | Emergency (ER) | payer OTHER, MEDICARE ==
--- NOTE | 2017-01-21 12:26 | PDOC ---
Attending Attestation - Resident Resident Name: Juliocesar Jenkins - ED Attending Attestation I have performed the following: I have examined & evaluated the patient, The case was reviewed & discussed with the resident, I agree w/resident's findings & plan, Exceptions are as noted - HPI HPI: 86 yo M multiple medical comorbidities presents after he was about to fall, his relative caught him before he fell. However, as the relative caught him, he sustained multiple skin tears to the B/L forearms, as his skin is thin and fragile. No other injuries, no head injury. He is not on any blood thinners (he previously was, but it was stopped after a GI bleed). No active bleeding. - Physicial Exam PE: GENERAL: Awake, alert, and fully oriented, in no acute distress HEAD: No signs of trauma EYES: PERRLA, EOMI, sclera anicteric, conjunctiva clear EXTREMITIES: Normal range of motion, no edema. No clubbing or cyanosis. No cords , erythema, or tenderness NEUROLOGICAL: Cranial nerves II through XII grossly intact. Normal speech, normal gait SKIN: Warm, Dry, normal turgor. +Multiple skin tears to B/L forearms, no active bleeding. With devitalized tissue B/L. - Medical Decision Making 01/21/17 12:35 Wound was irrigated with sterile water. Dressed with bacitracin, xeroform, and sterile gauze. The wounds were too large, skin was too thin, and devitalized, would not be adequate tissue for suture repair. Instructed him to change bandage once per day. F/u in wound care clinic.
[2017-01-21] MEDS ORDERED: DIPHTH,PERTUSS(ACELL),TET 0.5 ML DISP.SYRIN IM ONE (12:29)
[2017-01-21 12:31] VITALS: BP 90/32; PULSE 82; BMI 26.5
--- NOTE | 2017-01-21 12:39 | PDOC ---
History of Present Illness - General Chief Complaint: Injury Stated Complaint: BILATERAL SKIN TEARS OF THE ARMS Time Seen by Provider: 01/21/17 12:03 - History of Present Illness Initial Comments: 01/21/17 12:31 Mr. Pfeiffer is an 86 yo male with PMH of afib (not currently on blood thinners ) presenting with bruising and abrasion bilaterally to the dorsal aspect of each forearm after a fall that was arrested by his son. He reports minimal pain and came in for wound care only. PMH: Atrial fibrillation, CAD, COPD, [place]: NKDA Soc: Denies alcohol / smoking PCP: Ean Pfeiffer 01/21/17 12:33 Past History - Past Medical History Allergies/Adverse Reactions: Allergies Allergy/AdvReac Type Severity Reaction Status Date / Time No Known Allergies Allergy Verified 10/18/16 11:05 Home Medications: Ambulatory Orders Losartan Potassium [Cozaar] 25 mg PO DAILY 10/18/16 Furosemide [Lasix -] 40 mg PO DAILY #30 tablet 10/20/16 Albuterol Sulfate Inhaler - [Ventolin HFA Inhaler -] 2 puff IH Q4H PRN #30 inhaler 11/05/16 Melatonin 5 mg PO HS tab 11/05/16 Metoprolol Tartrate [Lopressor -] 25 mg PO BID #60 tablet 11/05/16 Pantoprazole Sodium [Protonix -] 40 mg PO BID #60 tab 11/05/16 Polyethylene Glycol 3350 [Miralax 119 gm Btl -] 17 gm PO BID bottle 11/05/16 Spironolactone [Aldactone -] 25 mg PO BID #60 tablet 11/05/16 Bacitracin - [Bacitracin Topical Ointment -] 1 applic TP DAILY #28 g 01/21/17 Bismuth Tribromoph/Petrolatum [Xeroform 5"X9" Gauze Strip] 1 each TP DAILY #30 bandage 01/21/17 Anemia: Yes Asthma: Yes Cardiac Disorders: Yes (A-FIB) CVA: Yes (cad, asd) COPD: Yes (& pulm htn) GI Disorders: Yes (GI BLEED, WITH TRANSFUSION) HTN: Yes - Surgical History Cardiac Surgery: Yes (ASD) - Psycho/Social/Smoking Cessation Hx Anxiety: No Suicidal Ideation: No Smoking History: Former smoker Have you smoked in the past 12 months: No If you are a former smoker, when did you quit?: 1984 Information on smoking cessation initiated: No Hx Alcohol Use: No Drug/Substance Use Hx: No Substance Use Type: None Hx Substance Use Treatment: No Review of Systems - Review of Systems Comments:: 01/21/17 12:36 Patient describes bilateral scrapes on both arms. 01/21/17 12:40 *Physical Exam - Vital Signs Last Vital Signs Temp Pulse Resp BP Pulse Ox 82 16 90/32 97 01/21/17 12:02 01/21/17 12:02 01/21/17 12:02 01/21/17 12:02 - Physical Exam Comments: 01/21/17 12:40 Bilateral abbrasions with tearing of skin over wound site, 1X on right and 2x on left. Right side approximately 8 cm long, left side 7 cm and 6 cm. Epidermis was mostly removed but still attached at edges. Medical Decision Making - Medical Decision Making 01/21/17 12:40 Patient presented with skin mostly removed but still attached at edges. Reapproximated as best as could and irrigated with 1000mL sterile saline. Covered with bacitracin, xeroform, and dry dressing. *DC/Admit/Observation/Transfer Diagnosis at time of Disposition: Abrasion of forearm Qualifiers: Encounter type: initial encounter Laterality: unspecified laterality Qualified Code(s): S50.819A - Abrasion of unspecified forearm, initial encounter - Discharge Dispostion Disposition: HOME Condition at time of disposition: Good - Prescriptions Prescriptions: Bacitracin - [Bacitracin Topical Ointment -] 1 applic TP DAILY #28 g Bismuth Tribromoph/Petrolatum [Xeroform 5"X9" Gauze Strip] 1 each TP DAILY #30 bandage - Referrals Referrals: Ean Pfeiffer MD [Primary Care Provider] - - Patient Instructions Printed Discharge Instructions: DI for Open Laceration Additional Instructions: Follow up with your primary care physician within 2-3 days. Make an appointment with the wound care center for next week, call [phone]. - Post Discharge Activity - Attestations Physician Attestion: 01/21/17 12:42 I, Dr. Juliocesar Jenkins, attest that this document has been prepared under my direction and personally reviewed by me in its entirety. I further attest, that it accurately reflects all work, treatment, procedures and medical decision -making performed by me.
== END 2017-01-21 12:44 | disposition home or self-care (01) ==
LOC: FER 12:00
PROC: 3E0234Z Introduction of Serum, Toxoid and Vaccine into Muscle, Percutaneous Approach (ICD-10-PCS; principal; 2017-01-21)
DX: S50.819A Abrasion of unspecified forearm, initial encounter (principal); W18.39XA Other fall on same level, initial encounter; Y93.89 Activity, other specified; Y92.9 Unspecified place or not applicable; Z87.891 Personal history of nicotine dependence; J45.909 Unspecified asthma, uncomplicated; Z86.73 Personal history of transient ischemic attack (TIA), and cerebral infarction without residual deficits; J44.9 Chronic obstructive pulmonary disease, unspecified; I48.91 Unspecified atrial fibrillation; Z79.01 Long term (current) use of anticoagulants
CPT/HCPCS: 90471; 90715; 99282-25

== ENCOUNTER 2017-05-21 11:42 | Inpatient (IN) | payer OTHER, MEDICARE ==
[2017-05-21 11:50] VITALS: BMI 24.5
--- NOTE | 2017-05-21 12:12 | PDOC ---
Attending Attestation - Resident Resident Name: JayLeonardo christopher - ED Attending Attestation I have performed the following: I have examined & evaluated the patient, The case was reviewed & discussed with the resident, I agree w/resident's findings & plan, Exceptions are as noted - HPI HPI: 05/21/17 12:12 87yo asthma, anemia, CHF, AFib (not on AC), CAD, ASD, COPD c/b resp failure, pulmonary hypertension, LV dysfunction, hypertension, hyperlipidemia, and GIB requiring transfusion p/w R sided facial droop since this morning and 2 days of unsteady gait. Pt reports a sensation that he is unstable and that he feels he falls more to the right. +R ear discharge since yesterday. Denies headache. Reports that he first noticed the droop this morning when looking in the mirror and does not remember the last time he looked in the mirror. Denies cp, sob. Denies other weakness or numbness. Denies abd pain, n/v/d. Denies LE edema, dysuria. - Physicial Exam PE: 05/21/17 12:31 GENERAL: Awake, alert, and fully oriented, in no acute distress HEAD: No signs of trauma EYES: PERRLA, EOMI, sclera anicteric, conjunctiva clear ENT: Auricles normal inspection, hearing grossly normal, nares patent, oropharynx clear without exudates. Moist mucosa NECK: Normal ROM, supple, no lymphadenopathy, JVD, or masses LUNGS: Breath sounds equal, clear to auscultation bilaterally. No wheezes, and no crackles HEART: Regular rate and rhythm, normal S1 and S2, no murmurs, rubs or gallops ABDOMEN: Soft, nontender, normoactive bowel sounds. No guarding, no rebound. No masses EXTREMITIES: Normal range of motion, no edema. No clubbing or cyanosis. No cords, erythema, or tenderness NEUROLOGICAL: Normal speech, R sided facial droop with forehead involvement, negative pronator drift, 5/5 strength in all 4 extremities, normal sensation to light touch in all 4 extremities, unsteady gait SKIN: Warm, Dry, normal turgor, no rashes or lesions noted. - Medical Decision Making 05/21/17 12:32 87-year-old male with multiple medical problems including atrial fibrillation, not on anticoagulation presents with right-sided facial droop since yesterday and 2 days of unsteady gait. Vitals unremarkable. Exam with right-sided facial droop with forehead involvement and unsteady gait. Ear exam with mild R sided otorrhea. Etiology of the facial droop and unsteady gait could possibly be peripheral in the setting of otorrhea and forehead involvement, however, given the patient's risk factors including atrial fibrillation, we will do a stroke workup. -labs -cth -CXR -ekg -UA -MRI if cth neg -admit
--- NOTE | 2017-05-21 12:25 | PDOC ---
History of Present Illness - General Chief Complaint: CVA/TIA Stated Complaint: STROKE LIKE SYMPTOMS (PCP SENT) Time Seen by Provider: 05/21/17 12:00 History Source: Patient Exam Limitations: No Limitations - History of Present Illness Initial Comments: 05/21/17 12:41 Patient is an 87M with afib (not on blood thinners), CAD, CHF, and pulmonary hypertension here today complaining of right sided facial droopiness and dizziness. The facial droop has an unknown onset; last unknown time without facial droop was 10pm yesterday. The patient reports that the dizziness has been going on for the past couple of days and causing the patient to fall over to the right side. The patient is also complaining of some right sided ear pain and clear discharge. Denies nausea vomiting fevers and chills. Says that shortness of breath, cough, and edema is at baseline. He denies chest pain, abdominal pain, and headache. He states that he was taken off blood thinners because his bleeding risk was too high. All: NKDA PCP: Aditi (Patient's nephew) Past History - Past Medical History Allergies/Adverse Reactions: Allergies Allergy/AdvReac Type Severity Reaction Status Date / Time No Known Allergies Allergy Verified 05/21/17 12:39 Home Medications: Ambulatory Orders Losartan Potassium [Cozaar] 25 mg PO DAILY 10/18/16 Albuterol Sulfate Inhaler - [Ventolin HFA Inhaler -] 2 puff IH Q4H PRN #30 inhaler 11/05/16 Metoprolol Tartrate [Lopressor -] 25 mg PO BID #60 tablet 11/05/16 Pantoprazole Sodium [Protonix -] 40 mg PO BID #60 tab 11/05/16 Polyethylene Glycol 3350 [Miralax 119 gm Btl -] 17 gm PO BID bottle 11/05/16 Spironolactone [Aldactone -] 25 mg PO BID #60 tablet 11/05/16 Furosemide [Lasix -] 40 mg PO ASDIR 05/21/17 Anemia: Yes Asthma: Yes Cardiac Disorders: Yes (A-FIB) CVA: Yes (cad, asd) COPD: Yes (& pulm htn) DVT: No GI Disorders: Yes (GI BLEED, WITH TRANSFUSION) HTN: Yes - Surgical History Cardiac Surgery: Yes (ASD) - Suicide/Smoking/Psychosocial Hx Smoking History: Former smoker Have you smoked in the past 12 months: No If you are a former smoker, when did you quit?: 1984 Information on smoking cessation initiated: No Hx Alcohol Use: No Drug/Substance Use Hx: No Substance Use Type: None Hx Substance Use Treatment: No Review of Systems - Review of Systems Comments:: 05/21/17 12:58 GENERAL/CONSTITUTIONAL: No fever or chills. No weakness. HEAD, EYES, EARS, NOSE AND THROAT: No change in vision. Positive for ear discharge and pain. No sore throat. CARDIOVASCULAR: No chest pain. Positive for shortness of breath and leg edema. RESPIRATORY: Positive for cough. Negative for wheezing, or hemoptysis. GASTROINTESTINAL: No nausea, vomiting, diarrhea or constipation. GENITOURINARY: No dysuria, frequency, or change in urination. MUSCULOSKELETAL: No joint or muscle swelling or pain. No neck or back pain. SKIN: No rash NEUROLOGIC: No headache, vertigo, loss of consciousness, or change in strength/ sensation. ENDOCRINE: No increased thirst. No abnormal weight change HEMATOLOGIC/LYMPHATIC: Positive for history of anemia and easy bleeding. ALLERGIC/IMMUNOLOGIC: No hives or skin allergy. *Physical Exam - Vital Signs Last Vital Signs Temp Pulse Resp BP Pulse Ox 98.1 F 101 H 22 123/60 96 05/21/17 11:44 05/21/17 11:44 05/21/17 11:44 05/21/17 11:44 05/21/17 11:44 - Physical Exam Comments: 05/21/17 13:00 GENERAL: Awake, alert, and fully oriented, in no acute distress HEAD: No signs of trauma, normocephalic, atraumatic EYES: PERRLA, EOMI, sclera anicteric, conjunctiva clear ENT: Auricles normal inspection, hearing grossly normal, nares patent, oropharynx clear without exudates. Moist mucosa. TM fluid level with clear discharge. Complete facial droop with supra orbital involvement. NECK: Normal ROM, supple, no lymphadenopathy, JVD, or masses LUNGS: No distress, speaks full sentences, clear to auscultation bilaterally HEART: Regular rate and rhythm, normal S1 and S2, no murmurs, rubs or gallops, peripheral pulses normal and equal bilaterally. ABDOMEN: Soft, nontender, normoactive bowel sounds. No guarding, no rebound. No masses EXTREMITIES: Normal inspection, Normal range of motion, 2+ pitting edema to knee. No clubbing or cyanosis. NEUROLOGICAL: Cranial nerves II through XII grossly intact. Normal speech, facial droop with supra orbital involvement. SKIN: Warm, Dry, normal turgor, no rashes or lesions noted. NIH Stroke Scale - Last Known Well Date/Time & Onset Date Last Known Well: 05/19/17 Time Last Known Well: 09:00 - Initial Evaluation Level of consciousness: Alert Ask patient the month and their age: Answers both correctly Ask patient to open & close eyes; make fist and let go: Obeys both correctly Best gaze (horizontal eye movement): Normal Visual field testing: No visual field loss Motor Function: Left Arm: Normal Motor Function: Right Arm: Normal (extends arm 90 (or 45) degrees for 10 seconds without drift Motor Function: Left Leg: Drift Motor Function: Right Leg: Drift Limb Ataxia: No ataxia Sensory(Use pinprick test arms,legs,trunk,face/side to side): Normal Best language (Describe picture, name items, read sentences): No Aphasia Dysarthria (read several words): Normal articulation Extinction and Inattention: No abnormality Critical Care Time/MDM Note - Medical Decision Making Note: 05/21/17 12:22 87M with history of afib and chf here today complaining of right sided facial droop. Last known well two days ago, does not qualify for TPA. Will complete MDM and H&P. 05/21/17 13:05 87m with history of afib (not on blood thinners), chf and septal defect repair here today complaining of facial droop and vertigo. Vital signs stable and normal. Exam consistent with quiles's palsy. Will due full stroke workup due to history of afib and age. 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 Platelets down to 116. H/H normal. Neutrophil counts pending. 05/21/17 13:38 EKG shows regular rhythm with no obvious p-waves. Sinus vs afib. RBBB pattern consistent with prior EKGs. No ST elevations. Normal intervals. 05/21/17 13:40 Laboratory Tests 11/04/16 05/21/17 05:35 12:30 BUN 21 H D Creatinine 1.1 1.4 H D Troponin I < 0.02 D Cr elevated to 1.4, baseline seems to be 1.1, but has had multiple other Cr in 1.5-3 range. Trop negative. 05/21/17 13:53 CT Head shows no bleed or acute areas of infarct. 05/21/17 14:31 Neuro consulted (Lillian), MRI ordered. Aditi updated, will admit to hospitalist. 05/21/17 14:56 Admitted to inpatient tele. Discharge Disposition - Diagnosis Facial droop - Discharge Dispostion Disposition: HOME Condition at time of disposition: Stable Last Admission D/C Date: 11/06/16 Admit: Yes - Referrals - Patient Instructions - Post Discharge Activity
[2017-05-21 12:42] LABS: MCH 28.7 pg (25.7-33.7); MCHC 31.9 g/dl (32.0-35.9); MEAN CELL VOLUME 90.2 fl (80-96); PLATELET COUNT 116 K/MM3 (134-434); RDW 16.8 % (11.9-15.9)
[2017-05-21] MEDS ORDERED: FAMOTIDINE 20 MG/50 ML IVPB 20 MG/50 ML MG IVPB ONE ×2 (12:49→13:35)
[2017-05-21] MEDS ORDERED: MAG HYDROX/AL HYDROX/SIMETH 30 ML UNIT-DOSE CUP PO ONE (12:49)
[2017-05-21 13:23] LABS: ALBUMIN 2.8 g/dl (3.4-5.0); ANION GAP 7 (8-16); BILIRUBIN,TOTAL 0.8 mg/dL (0.2-1.0); CALCIUM 8.3 mg/dL (8.5-10.1); CHOLESTEROL 85 mg/dL (50-200); CO2 29 mmol/L (21-32); CREATININE 1.4 mg/dL (0.7-1.3); GLUCOSE,RANDOM 150 mg/dL (74-106); SGOT/AST 15 U/L (15-37); SGPT/ALT 11 U/L (12-78)
[2017-05-21 13:24] LABS: ALK PHOS 88 U/L (45-117); CPK 32 IU/L (39-308); TROPONIN I < 0.02 ng/ml (0.00-0.05)
[2017-05-21] MEDS ORDERED: MAG HYDROX/AL HYDROX/SIMETH 30 ML UNIT-DOSE CUP ONE (13:35)
[2017-05-21] MEDS ORDERED: ASPIRIN 325 MG TABLET PO ONE (14:06)
[2017-05-21] MEDS ORDERED: ASPIRIN 325 MG TABLET ONE (14:15)
[2017-05-21 14:17] LABS: TOTAL CELLS COUNTED 100
[2017-05-21 14:18] LABS: PLATELET ESTIMATE SLT DECREASE
[2017-05-21 14:26] LABS: INR 1.17 (0.82-1.09); PROTHROMBIN TIME (PATIENT) 13.2 SEC (9.98-11.88)
[2017-05-21 15:11] LABS: URINE APPEARANCE CLEAR; URINE BILIRUBIN NEGATIVE (NEGATIVE); URINE BLOOD 1+ (NEGATIVE); URINE COLOR YELLOW; URINE GLUCOSE (UA) NEGATIVE (NEGATIVE); URINE KETONE NEGATIVE (NEGATIVE); URINE NITRITE NEGATIVE (NEGATIVE); URINE PROTEIN NEGATIVE (NEGATIVE); URINE UROBILINOGEN NEGATIVE mg/dL (0.2-1.0)
[2017-05-21 15:13] LABS: URINE MUCUS RARE; URINE RBC 2; URINE WBC < 1
--- NOTE | 2017-05-21 15:26 | EKG ---
Test Reason : Blood Pressure : / mmHG Vent. Rate : 097 BPM Atrial Rate : 097 BPM P-R Int : 000 ms QRS Dur : 158 ms QT Int : 406 ms P-R-T Axes : 000 109 -19 degrees QTc Int : 515 ms SINUS RHYTHM WITH MARKED FIRST DEGREE AV BLOCK AND PREMATURE VENTRICULAR COMPLEXES RIGHT BUNDLE BRANCH BLOCK CANNOT RULE OUT INFERIOR INFARCT , AGE UNDETERMINED ABNORMAL ECG WHEN COMPARED WITH ECG OF 22-OCT-2016 10:19, SINUS RHYTHM HAS REPLACED ATRIAL FIBRILLATION QRS AXIS SHIFTED RIGHT QT HAS LENGTHENED CLINICAL CORRELATION IS RECOMMENDED Confirmed by EMMA BARROS MD ([id number]) on 05/21/2017 3:26:17 PM Referred By: Confirmed By:EMMA BARROS MD
[2017-05-21] MEDS ORDERED: ALBUTEROL SO4 18 GM HFA INHALER IH PRN (16:26)
--- NOTE | 2017-05-21 16:34 | PN ---
Teaching Attending Note Name of Resident: Ryanne Lynch ATTENDING PHYSICIAN STATEMENT Time of evaluation: 4:00 PM I saw and evaluated the patient. I reviewed the resident's note and discussed the case with the resident. I agree with the resident's findings and plan as documented. SUBJECTIVE: Patient seen and examined. reports right facial droop. States was seen normal last night around 10 pm, this AM went for shower, came out, looked in mirror saw right facial droop, talked to PCP who advised him to come to ED. Reports right ear ache and discharge when attempted to check his ear for a few days. Also dizziness for a week, with activity with tendency of swaying to the right and feeling unsteady. Also c/o right ear tearing and redness but no pain. no fevers/chills. recent exposure to kid with 'ear infection'. Denies any tingling/ weakness/numbness elsewhere, no visual or speech disturbances, no sensory changes. No decreased PO intake. OBJECTIVE: Vital Signs Period Temp Pulse Resp BP Sys/Brian Pulse Ox Last 24 Hr 98.1 F 79-101 22 123-126/59-60 95-96 Intake & Output 05/18/17 05/19/17 05/20/17 05/21/17 23:59 23:59 23:59 23:59 Weight 174 lb General: sitting in bed in no acute distress. visible right facial droop HEENT: right ear otoscopic exam: visible crusting that bleed with otoscope insertion, some pain on exam, wax, visualized portion of tympanic membrane with possible small perforation around 2 o clock position, no yellowish discharge noted, EOMI, PERRLA, right conjunctival erythema, no sinus tenderness Neck: soft, supple, no JVD CVS: S1S2 irregular chest: CTAB, no rales or wheezing abdomen: soft, NT, ND, positive bowel sounds, no voluntary or involuntary guarding or rigidity Extremities - no edema, chronic skin changes on bilateral lower extremities with hyperpigmentation, non pitting edema (baseline per patient), Neuro: AAOX3, right facial droop, minimal decrease in creasing right forehead, mild weakness right eyelid closing, sensation intact and symmetrical on bilateral face area, no pronator drift, sensation intact to light touch throughout, Power 5/5 all extremities, toes down going, DTR bilaterally symetric , finger nose test with no past pointing, no dysdiadokokinesia noted Home Medication List Medication Instructions Recorded Confirmed Type Losartan Potassium [Cozaar] 25 mg PO DAILY 10/18/16 05/21/17 History Furosemide [Lasix -] 40 mg PO Q48H 05/21/17 05/21/17 History Prednisone [Deltasone -] 20 mg PO DAILY 05/21/17 05/21/17 History Active Medications Generic Name Dose Route Start Last Admin Trade Name Omi PRN Reason Stop Dose Admin Albuterol Sulfate 2 puff 05/21/17 16:26 Ventolin Hfa Inhaler - IH Q4H PRN SHORT OF BREATH/WHEEZING Furosemide 40 mg 05/22/17 10:00 Lasix - PO Q48H RUBIA Ampicillin Sodium/Sulbactam 100 mls @ 200 mls/hr 05/21/17 16:30 Sodium 1.5 gm/ Sodium Chloride IVPB Q6H-IV RUBIA Metoprolol Tartrate 25 mg 05/21/17 22:00 Lopressor - PO BID RUBIA Pantoprazole Sodium 40 mg 05/21/17 22:00 Protonix - PO BID RUBIA Polyethylene Glycol 17 gm 05/21/17 22:00 Miralax (For Daily Use) - PO BID RUBIA Spironolactone 25 mg 05/21/17 22:00 Aldactone - PO BID [facility] Laboratory Results - last 24 hr 05/21/17 05/21/17 05/21/17 12:30 12:30 12:30 WBC 2.0 L D RBC 4.08 D Hgb 11.7 D Hct 36.8 D MCV 90.2 MCH 28.7 D MCHC 31.9 L RDW 16.8 H D Plt Count 116 L D MPV 7.0 L Total Counted 100 Neutrophils % No Result Required. Neutrophils % (Manual) 52.0 Band Neutrophils % 2.0 Lymphocytes % No Result Required. Lymphocytes % (Manual) 30.0 Monocytes % (Manual) 14 H Eosinophils % (Manual) 2.0 Platelet Estimate Slt decrease Platelet Comment No Result Required. PT with INR 13.20 H INR 1.17 H Sodium 138 Potassium 4.2 Chloride 102 D Carbon Dioxide 29 D Anion Gap 7 L BUN 21 H D Creatinine 1.4 H D Creat Clearance w eGFR 47.83 Random Glucose 150 H D Calcium 8.3 L Total Bilirubin 0.8 D AST 15 D ALT 11 L D Alkaline Phosphatase 88 D Creatine Kinase 32 L Troponin I < 0.02 D Total Protein 8.0 Albumin 2.8 L Triglycerides 69 Cholesterol 85 Total LDL Cholesterol 49 HDL Cholesterol 31 L Urine Color Urine Appearance Urine pH Ur Specific [place] Urine Protein Urine Glucose (UA) Urine Ketones Urine Blood Urine Nitrite Urine Bilirubin Urine Urobilinogen Urine WBC (Auto) Urine RBC (Auto) Urine Mucus Blood Type Antibody Screen Spec Expiration Date 05/21/17 05/21/17 05/21/17 12:30 13:40 15:02 WBC RBC Hgb Hct MCV MCH MCHC RDW Plt Count MPV Total Counted Neutrophils % Neutrophils % (Manual) Band Neutrophils % Lymphocytes % Lymphocytes % (Manual) Monocytes % (Manual) Eosinophils % (Manual) Platelet Estimate Platelet Comment PT with INR INR Sodium Potassium Chloride Carbon Dioxide Anion Gap BUN Creatinine Creat Clearance w eGFR Random Glucose Calcium Total Bilirubin AST ALT Alkaline Phosphatase Creatine Kinase Troponin I Total Protein Albumin Triglycerides Cholesterol Total LDL Cholesterol HDL Cholesterol Urine Color Yellow Urine Appearance Clear Urine pH 5.0 Ur Specific [place] 1.019 Urine Protein Negative Urine Glucose (UA) Negative Urine Ketones Negative Urine Blood 1+ H Urine Nitrite Negative Urine Bilirubin Negative Urine Urobilinogen Negative Urine WBC (Auto) < 1 Urine RBC (Auto) 2 Urine Mucus Rare Blood Type O POSITIVE Antibody Screen Negative Spec Expiration Date Trim Technician CT brain - no acute process EKG NSR, RBBB (unchanged from prior). ASSESSMENT AND PLAN: 87 yom with Afib not on coumadin, CAD with 1 vessel disease with medical management, ASD s/p open repair, Afib with Cryomaze procedure, Chronic systolic/ Diastolic HF, COPD on 2L home oxygen, HTN, GI bleed, pancytopenia (?neg bone marrow biopsy), admitted with right facial droop unclear onset, also right ear pain/discharge, dizziness and unsteady gait. -Right facial droop , Otitis media with facial nerve paralysis vs CVA on differential. Less likely Cardenas's palsy based on clinical presentation as no clear suggestion for HSV infection. -Paroxysmal Afib not on anticoagulation, s/p Cryomaze procedure -Pancytopenia -CAD s/p 1 vessel disease -GI bleed -COPD on 2L home oxygen -HTN Plan: Evidence of Otitis media on and possible TM rupture on exam. Unasyn, ENT consult, MRI brain. Monitor closely, avoid water in right ear, close with gauze. Eye care with artificial tears. Given high stroke risk not on anticoagulation, will place on telemetry, repeat 2D echo/carotid US, MRI brain/MRA head/neck, neuro checks. Permissive HTN x 24 hours. Neurology/cardiology have been consulted. Continue metoprolol given tachycardic with known h/o Afib Known h/o pancytopenia, trend CBC for now. SCDs in bed but hold off on pharmacological DVTPPx x24 hours. Continue lasix/aldactone. Bedside speech/swallow eval, resume PO accordingly. GIPPX with protonix Code: DNR/DNI, son Heath HCP, witnessed by kymberly Joe at bedside anticipate ateast 2-3 midnight stays pending clinical improvement and additional neurological/ENT work up. Plan discussed with patient and son at bedside in detail, all questions answered. total admit time spent 55 min.
--- NOTE | 2017-05-21 17:45 | HP ---
CHIEF COMPLAINT: R facial weakness PCP: Dr. Pfeiffer (patient's nephew) HISTORY OF PRESENT ILLNESS: 87yo man with PMH of COPD (on home 2L, steroids), Afib (no AC, s/p cryomaze procedure), GIB, HTN, HLD, CAD (s/p 1 vessel disease), LV diastolic/systolic dysfunction, pulmonary HTN, pancytopenia (low grade lymphoma) who presents with acute R sided facial weakness of unclear onset, R ear pain/discharge and dizziness for the past several days. Patient first noticed R facial droop this morning after getting out of the shower. His son, who is at bedside, did not notice any facial droop when he saw pt last night. For the past week, he has had some R ear pain and "grainy" discharge. In addition, the patient has felt dizzy when he walks (not at rest) for the past few days. Feel his gait has been more unsteady, and that he is swaying to the right. Denies changes in vision or speech. Denies any numbness, tingling, fever, chills, worsening sob, or chest pain. A grandchild who visited recently may have an ear infection. 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 Renal CKD PAST SURGICAL HISTORY: -ASD repair Social History: lives with , son lives nearby, ambulates with cane Smoking: quit 30y ago, approx 40 pack year history Alcohol: social Drugs: denies Family History: Heart Disease: Father, Sister, CA: Brother (CVA,PROSTATE CANCE, LUNG CANCER,PANCREATIC CANCER) Allergies: NKDA HOME MEDICATIONS: Losartan Potassium [Cozaar] 25 mg PO DAILY 10/18/16 Albuterol Sulfate Inhaler - [Ventolin HFA Inhaler -] 2 puff IH Q4H PRN #30 inhaler 11/05/16 Metoprolol Tartrate [Lopressor -] 25 mg PO BID #60 tablet 11/05/16 Pantoprazole Sodium [Protonix -] 40 mg PO BID #60 tab 11/05/16 Polyethylene Glycol 3350 [Miralax 119 gm Btl -] 17 gm PO BID bottle 11/05/16 Spironolactone [Aldactone -] 25 mg PO BID #60 tablet 11/05/16 Furosemide [Lasix -] 40 mg PO Q48H 05/21/17 Prednisone [Deltasone -] 20 mg PO DAILY 05/21/17 REVIEW OF SYSTEMS CONSTITUTIONAL: Absent: fever, chills, diaphoresis, generalized weakness, malaise, loss of appetite, weight change HEENT: +R ear pain Absent: rhinorrhea, nasal congestion, throat pain, throat swelling, difficulty swallowing, mouth swelling CARDIOVASCULAR: Absent: chest pain, syncope, palpitations, irregular heart rate, lightheadedness , peripheral edema RESPIRATORY: Absent: cough, shortness of breath, dyspnea with exertion, orthopnea, wheezing, stridor, hemoptysis GASTROINTESTINAL: Absent: abdominal pain, abdominal distension, nausea, vomiting, diarrhea, constipation, melena, hematochezia GENITOURINARY: Absent: dysuria, frequency, urgency, hesitancy, hematuria, flank pain, genital pain MUSCULOSKELETAL: Absent: myalgia, arthralgia, joint swelling, back pain, neck pain SKIN: Absent: rash, itching, pallor HEMATOLOGIC/IMMUNOLOGIC: +easy bleeding (epistaxis) Absent: , easy bruising, lymphadenopathy, frequent infections ENDOCRINE: Absent: unexplained weight gain, unexplained weight loss, heat intolerance, cold intolerance NEUROLOGIC: +unsteady gait, facial weakness, vertigo Absent: headache, paresthesias,seizure, mental status changes, bladder or bowel incontinence PSYCHIATRIC: Absent: anxiety, depression, suicidal or homicidal ideation, hallucinations. PHYSICAL EXAMINATION Vital Signs - 24 hr 05/21/17 05/21/17 11:44 13:44 Temperature 98.1 F Pulse Rate 101 H Pulse Rate [ 79 Apical] Respiratory 22 Rate Blood Pressure 123/60 Blood Pressure 126/59 [Left Arm] O2 Sat by Pulse 96 95 Oximetry (%) GENERAL: aaox3, nad, visible R facial paralysis HEAD: Normal with no signs of trauma. HEENT: EOMI, PERRLA, right conjunctival erythema, no sinus tenderness, oropharynx clear without exudates, R targus mild enlarged, erythematous > L targus, no mastoid tenderness or erythema, R otoscope exam: visible crusting bled with otoscope insertion, some pain on exam, wax; Per Dr. Noriega " visualized portion of tympanic membrane with possible small perforation around 2 o clock position" NECK: no cervical LAD, no JVD LUNGS: CTAB, no wheezing or accessory muscle use HEART: rrr, normal S1/S2, no murmur, rub or gallop ABDOMEN: soft, ntnd UPPER EXTREMITIES: 2+ pulses, warm, well-perfused. No cyanosis. No clubbing. No peripheral edema. LOWER EXTREMITIES: b/l venous stasis, wwp, no calf tenderness, no peripheral edema NEUROLOGICAL: R CNVII weakness (mild decrease in R forehead wrinkle, eyelid closure, and nasolabial flatness); facial sensation intact bilaterally and in all 4 extremities, muscle strength 5/5 all 4 extremities, no pronator drift, DTR bilaterally symmetric, no dysdiadochokinesia (FNF, rapid hand movements intact) CBC, BMP 05/21/17 12:30 05/21/17 12:30 Hepatic Panel Total Bilirubin 0.8 mg/dL (0.2-1.0) D 05/21/17 12:30 AST 15 U/L (15-37) D 05/21/17 12:30 ALT 11 U/L (12-78) L D 05/21/17 12:30 Alkaline Phosphatase 88 U/L (45-117) D 05/21/17 12:30 Albumin 2.8 g/dl (3.4-5.0) L 05/21/17 12:30 Troponin, BNP 05/21/17 12:30 Troponin I < 0.02 D IMAGING: EKG (05/21/17): NSR, rate 97, prolonged QTc 515ms, RBBB (old) Head CT, non-con (05/21/17): No acute intracranial hemorrhage, mass effect, hydrocephalus CXR (05/21/17): cardiomegaly with increased pulm vascular congestion, no focal consolidations Active Medications Albuterol Sulfate (Ventolin Hfa Inhaler -) 2 puff IH Q4H PRN PRN Reason: SHORT OF BREATH/WHEEZING Artificial Tears (Artificial Tears) 2 drop OU Q4HWA RUBIA Furosemide (Lasix -) 40 mg PO Q48H RUBIA Ampicillin Sodium/Sulbactam (Sodium 1.5 gm/ Sodium Chloride) 100 mls @ 200 mls/ hr IVPB Q6H-IV RUBIA Metoprolol Tartrate (Lopressor -) 25 mg PO BID RUBIA Pantoprazole Sodium (Protonix -) 40 mg PO BID RUBIA Polyethylene Glycol (Miralax (For Daily Use) -) 17 gm PO BID RUBIA Spironolactone (Aldactone -) 25 mg PO BID RUBIA ASSESSMENT/PLAN: 87yo man with PMH of CHF, CAD, Afib (off AC), COPD, pancytopenia (prior bone bx neg) who presents with R facial hemiparesis of unclear onset, R ear pain and discharge, and vertigo. Physical exam notable for no R focal neurological deficits other than facial paralysis with e/o R erythematous and possibly perforated tympanic membrane c/w otitis media. However, given cardiovascular history, stroke work-up is in progress to rule out CVA. #R facial paralysis, suspect complication of otitis media -Cardiology, Neurology, and ENT consulted -Brain MRI pending -Carotid dopplers pending -Start Unasyn 1.5g IV q6H for empiric otitis media -Avoid water in R ear, BRP with assist, Neuro checks q4h #HTN -Hold home losartan, permissive HTN x 24h, await neuro/cards recommendations #CHF -Continue home metoprolol, lasix, spironolactone #COPD -Oxygen therapy to maintain SpaO2>90% -Continue home Albulterol inhaler q4h PRN #GERD -Continue home Prontonix #FEN/PPx -Hold IVFs -lytes wnl -Dysphagia puree, Na controlled (passed bedside swallow evaluation); PURCHASING SPECIALIST eval pending #PPX -DVT SCDs -GI - home protonix bid #DISPO: admit to tele DNR/DNI per patient, witnessed by Son (Heath) at bedside, who is HCP d/w Dr. Leann Lynch MD PGY-1 Visit type - Emergency Visit Emergency Visit: Yes ED Registration Date: 05/21/17 Care time: The patient presented to the Emergency Department on the above date and was hospitalized for further evaluation of their emergent condition. - New Patient This patient is new to me today: Yes Date on this admission: 05/21/17 - Critical Care Critical Care patient: No
[2017-05-21] MEDS: AMPICILLIN NA/SULBACTAM NA 1.5 GM in SODIUM CHLORIDE 100 ML IVPB SCH ×2 (18:10→22:08)
[2017-05-21] MEDS: ARTIFICIAL TEARS (POLYVINYL ALCOHOL 1.4%) OPTH DROPS OU SCH ×2 (18:27→22:27)
[2017-05-21 20:08] LABS: URINE LEUK ESTERASE Negative (NEGATIVE)
[2017-05-21] MEDS: PANTOPRAZOLE 40 MG TABLET (FP) PO SCH (22:27)
[2017-05-21] MEDS: SPIRONOLACTONE 25 MG TABLET (FP) PO SCH (22:27)
[2017-05-21] MEDS: METOPROLOL TARTRATE 25 MG TABLET (FP) PO SCH (22:27)
[2017-05-21] MEDS: POLYETHYLENE GLYCOL 3350 119 GM BTL PO SCH (22:28)
[2017-05-21] MEDS ORDERED: PT OWN MED DRAWER 7, Y5N ONE (22:36)
[2017-05-22] MEDS: AMPICILLIN NA/SULBACTAM NA 1.5 GM in SODIUM CHLORIDE 100 ML IVPB SCH ×4 (03:09→21:32)
[2017-05-22] MEDS ORDERED: PT OWN MED DRAWER 7, Y5N ONE ×2 (05:33→20:59)
[2017-05-22] MEDS: ARTIFICIAL TEARS (POLYVINYL ALCOHOL 1.4%) OPTH DROPS OU SCH ×5 (05:38→21:33)
[2017-05-22 08:04] LABS: MCH 28.7 pg (25.7-33.7); MCHC 31.5 g/dl (32.0-35.9); MEAN CELL VOLUME 91.2 fl (80-96); MEAN PLT VOLUME 7.5 fl (7.5-11.1); PLATELET COUNT 111 K/MM3 (134-434); RDW 17.1 % (11.9-15.9); WHITE BLOOD COUNT 2.2 K/mm3 (4.0-10.0)
--- NOTE | 2017-05-22 08:47 | PN ---
Progress Note (short form) - Note Progress Note: Chief Complaint: Events noted, notes reviewed, right sided facial weakness, right ear ache with drainage and dizziness with ambulation, denies any chest pain but reports persistent dyspnea, atrial fibrillation, rate controlled History of Present Illness: Seen and examined on telemetry. Full consult dictated - Current Medication List Current Medications Albuterol Sulfate (Ventolin Hfa Inhaler -) 2 puff IH Q4H PRN PRN Reason: SHORT OF BREATH/WHEEZING Artificial Tears (Artificial Tears) 2 drop OU Q4HWA [facility] Last Admin: 05/22/17 05:38 Dose: 2 drop Furosemide (Lasix -) 40 mg PO Q48H [facility] Ampicillin Sodium/Sulbactam (Sodium 1.5 gm/ Sodium Chloride) 100 mls @ 200 mls/ hr IVPB Q6H-IV [facility] Last Admin: 05/22/17 03:09 Dose: 200 mls/hr Metoprolol Tartrate (Lopressor -) 25 mg PO BID [facility] Last Admin: 05/21/17 22:27 Dose: 25 mg Pantoprazole Sodium (Protonix -) 40 mg PO BID [facility] Last Admin: 05/21/17 22:27 Dose: 40 mg Polyethylene Glycol (Miralax (For Daily Use) -) 17 gm PO BID [facility] Last Admin: 05/21/17 22:28 Dose: Not Given Spironolactone (Aldactone -) 25 mg PO BID [facility] Last Admin: 05/21/17 22:27 Dose: 25 mg Review of Systems Constitutional: denies Chills or Fever Respiratory: reports: Dyspnea Cardiovascular: As noted above Gastrointestinal: denies Nausea, Vomiting, Diarrhea or Constipation or Abdominal Discomfort Genitourinary: No Symptoms Reported Musculoskeletal: No Symptoms Reported - Objective Vital Signs: Last Vital Signs Temp Pulse Resp BP Pulse Ox 98.8 F 93 H 20 129/55 97 05/22/17 06:00 05/22/17 06:00 05/22/17 06:00 05/22/17 06:00 05/21/17 22:00 Intake & Output 05/19/17 05/20/17 05/21/17 05/22/17 23:59 23:59 23:59 23:59 Intake Total 130 240 Output Total 200 300 Balance -70 -60 Weight 174 lb Neck: Supple Negative JVD No Bruit Cardiovascular: S1 S2 Irregularly Irregular grade 2/6 SM Respiratory: Diminished Breath Sound at the Bases Gastrointestinal: Soft Benign Normal Bowel Sounds Ext: Trace to 1+ Edema Bilaterally Labs: CBC, BMP 05/22/17 06:15 Hepatic Panel Total Bilirubin 0.8 mg/dL (0.2-1.0) D 05/21/17 12:30 AST 15 U/L (15-37) D 05/21/17 12:30 ALT 11 U/L (12-78) L D 05/21/17 12:30 Alkaline Phosphatase 88 U/L (45-117) D 05/21/17 12:30 Albumin 2.8 g/dl (3.4-5.0) L 05/21/17 12:30 Troponin, BNP 05/21/17 12:30 Troponin I < 0.02 D Assessment/Plan ASSESSMENT: 1. 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 Right ear ache and drainage 3. Dizziness clinical presentation is consistent with benign positional vertigo 4. Diastolic LV dysfunction with chronic class I-II NYHA association LV failure , compensated/euvolemic 5. 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 Persistent atrial fibrillation post Cryo-Maze and NATE ligation, [id number] score of 5, currently off of A/C 7. Moderate to severe degree of pulmonary HTN 8. HTN 9. Hypercholesterolemia 10. ASD post surgical repair 11. 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 History of CKD PLAN: 1. Continue Lasix and Aldactone with caution and close monitoring of renal function 2. Continue Lopressor, hemodynamics permitting 3. As outlined in prior admission notes recommend withholding A/C therapy at this point indefinitely recognizing elevated stroke risk ([id number] score of 5 ) considering his history of recurrent GI bleed, patient not a candidate for Watchman device insertion, history of NATE ligation 4. Neurology and ENT evaluation for the above noted pathologies Nova Jara MD
[2017-05-22] MEDS: SPIRONOLACTONE 25 MG TABLET (FP) PO SCH ×2 (09:05→21:32)
[2017-05-22] MEDS: METOPROLOL TARTRATE 25 MG TABLET (FP) PO SCH ×2 (09:05→21:32)
[2017-05-22] MEDS: PANTOPRAZOLE 40 MG TABLET (FP) PO SCH ×2 (09:06→21:32)
[2017-05-22] MEDS: POLYETHYLENE GLYCOL 3350 119 GM BTL PO SCH ×2 (09:06→21:33)
[2017-05-22 09:07] LABS: ALBUMIN 2.8 g/dl (3.4-5.0); ALK PHOS 85 U/L (45-117); ANION GAP 9 (8-16); BILIRUBIN,TOTAL 0.8 mg/dL (0.2-1.0); CALCIUM 8.3 mg/dL (8.5-10.1); CO2 28 mmol/L (21-32); CREATININE 1.3 mg/dL (0.7-1.3); GLUCOSE,RANDOM 99 mg/dL (74-106); SGOT/AST 14 U/L (15-37); SGPT/ALT 10 U/L (12-78); TOT PROT 7.9 g/dl (6.4-8.2)
[2017-05-22] MEDS ORDERED: FUROSEMIDE 40 MG TABLET (FP) PO SCH (10:00)
--- NOTE | 2017-05-22 10:54 | PN ---
Teaching Attending Note Name of Resident: Ryanne Lynch ATTENDING PHYSICIAN STATEMENT Time of evaluation: 8:35 AM I saw and evaluated the patient. I reviewed the resident's note and discussed the case with the resident. I agree with the resident's findings and plan as documented. SUBJECTIVE: patient seen and examined. Unchanged right facial droop. No further bleed from right ear, no pain currently. Intermittent dizziness and unsteady gait persist. No new complaints. OBJECTIVE: Vital Signs Period Temp Pulse Resp BP Sys/Brian Pulse Ox Last 24 Hr 97.3 F-98.8 F 79-101 16-22 103-129/52-73 95-100 Intake & Output 05/19/17 05/20/17 05/21/17 05/22/17 23:59 23:59 23:59 23:59 Intake Total 130 240 Output Total 200 300 Balance -70 -60 Weight 174 lb General: sitting in bed in no acute distress HEENT: dried blood right external ear canal, no new erythema or discharge noted CVS: S1S2 irregular Chest: CTAB, no rales or wheezing abdomen: soft, NT neuro AAOX3, PERRLA, EOMI, right facial droop with decreased creasing right forehead, unchanged exam from yesterday. Home Medication List Medication Instructions Recorded Confirmed Type Losartan Potassium [Cozaar] 25 mg PO DAILY 10/18/16 05/21/17 History Furosemide [Lasix -] 40 mg PO Q48H 05/21/17 05/21/17 History Prednisone [Deltasone -] 20 mg PO DAILY 05/21/17 05/21/17 History Active Medications Generic Name Dose Route Start Last Admin Trade Name Freq PRN Reason Stop Dose Admin Albuterol Sulfate 2 puff 05/21/17 16:26 Ventolin Hfa Inhaler - IH Q4H PRN SHORT OF BREATH/WHEEZING Artificial Tears 2 drop 05/21/17 18:00 05/22/17 09:06 Artificial Tears OU 2 drop Q4HWA RUBIA Administration Furosemide 40 mg 05/22/17 10:00 05/22/17 09:05 Lasix - PO 40 mg Q48H RUBIA Administration Ampicillin Sodium/Sulbactam 100 mls @ 200 mls/hr 05/21/17 16:30 05/22/17 09: 05 Sodium 1.5 gm/ Sodium Chloride IVPB 200 mls/hr Q6H-IV RUBIA Administration Metoprolol Tartrate 25 mg 05/21/17 22:00 05/22/17 09:05 Lopressor - PO 25 mg BID RUBIA Administration Pantoprazole Sodium 40 mg 05/21/17 22:00 05/22/17 09:06 Protonix - PO 40 mg BID RUBIA Administration Polyethylene Glycol 17 gm 05/21/17 22:00 05/22/17 09:06 Miralax (For Daily Use) - PO Not Given BID RUBIA Spironolactone 25 mg 05/21/17 22:00 05/22/17 09:05 Aldactone - PO 25 mg BID RUBIA Administration Laboratory Results - last 24 hr 05/21/17 05/21/17 05/21/17 12:30 12:30 12:30 WBC 2.0 L D RBC 4.08 D Hgb 11.7 D Hct 36.8 D MCV 90.2 MCH 28.7 D MCHC 31.9 L RDW 16.8 H D Plt Count 116 L D MPV 7.0 L Total Counted 100 Neutrophils % No Result Required. Neutrophils % (Manual) 52.0 Band Neutrophils % 2.0 Lymphocytes % No Result Required. Lymphocytes % (Manual) 30.0 Monocytes % (Manual) 14 H Eosinophils % (Manual) 2.0 Platelet Estimate Slt decrease Platelet Comment No Result Required. PT with INR 13.20 H INR 1.17 H Sodium 138 Potassium 4.2 Chloride 102 D Carbon Dioxide 29 D Anion Gap 7 L BUN 21 H D Creatinine 1.4 H D Creat Clearance w eGFR 47.83 Random Glucose 150 H D Calcium 8.3 L Total Bilirubin 0.8 D AST 15 D ALT 11 L D Alkaline Phosphatase 88 D Creatine Kinase 32 L Troponin I < 0.02 D Total Protein 8.0 Albumin 2.8 L Triglycerides 69 Cholesterol 85 Total LDL Cholesterol 49 HDL Cholesterol 31 L Urine Color Urine Appearance Urine pH Ur Specific [place] Urine Protein Urine Glucose (UA) Urine Ketones Urine Blood Urine Nitrite Urine Bilirubin Urine Urobilinogen Ur Leukocyte Esterase Urine WBC (Auto) Urine RBC (Auto) Urine Mucus Blood Type Antibody Screen Spec Expiration Date 05/21/17 05/21/17 05/21/17 12:30 13:40 15:02 WBC RBC Hgb Hct MCV MCH MCHC RDW Plt Count MPV Total Counted Neutrophils % Neutrophils % (Manual) Band Neutrophils % Lymphocytes % Lymphocytes % (Manual) Monocytes % (Manual) Eosinophils % (Manual) Platelet Estimate Platelet Comment PT with INR INR Sodium Potassium Chloride Carbon Dioxide Anion Gap BUN Creatinine Creat Clearance w eGFR Random Glucose Calcium Total Bilirubin AST ALT Alkaline Phosphatase Creatine Kinase Troponin I Total Protein Albumin Triglycerides Cholesterol Total LDL Cholesterol HDL Cholesterol Urine Color Yellow Urine Appearance Clear Urine pH 5.0 Ur Specific [place] 1.019 Urine Protein Negative Urine Glucose (UA) Negative Urine Ketones Negative Urine Blood 1+ H Urine Nitrite Negative Urine Bilirubin Negative Urine Urobilinogen Negative Ur Leukocyte Esterase Negative Urine WBC (Auto) < 1 Urine RBC (Auto) 2 Urine Mucus Rare Blood Type O POSITIVE Antibody Screen Negative Spec Expiration Date Import/Export Administrator 05/22/17 05/22/17 06:15 06:15 WBC 2.2 L RBC 3.66 L Hgb 10.5 L D Hct 33.4 L MCV 91.2 MCH 28.7 MCHC 31.5 L RDW 17.1 H Plt Count 111 L MPV 7.5 Total Counted Neutrophils % No Result Required. Neutrophils % (Manual) Band Neutrophils % Lymphocytes % No Result Required. Lymphocytes % (Manual) Monocytes % (Manual) Eosinophils % (Manual) Platelet Estimate Platelet Comment PT with INR INR Sodium 139 Potassium 4.6 Chloride 102 Carbon Dioxide 28 Anion Gap 9 BUN 18 Creatinine 1.3 Creat Clearance w eGFR 52.10 Random Glucose 99 D Calcium 8.3 L Total Bilirubin 0.8 AST 14 L ALT 10 L Alkaline Phosphatase 85 Creatine Kinase Troponin I Total Protein 7.9 Albumin 2.8 L Triglycerides Cholesterol Total LDL Cholesterol HDL Cholesterol Urine Color Urine Appearance Urine pH Ur Specific [place] Urine Protein Urine Glucose (UA) Urine Ketones Urine Blood Urine Nitrite Urine Bilirubin Urine Urobilinogen Ur Leukocyte Esterase Urine WBC (Auto) Urine RBC (Auto) Urine Mucus Blood Type Antibody Screen Spec Expiration Date MRI brain reviewed. Carotid dopplers done, follow up read. ASSESSMENT AND PLAN: 87 yom with Afib not on coumadin, CAD with 1 vessel disease with medical management, ASD s/p open repair, Afib with Cryomaze procedure, Chronic systolic/ Diastolic HF, COPD on 2L home oxygen, HTN, GI bleed, pancytopenia (?neg bone marrow biopsy), admitted with right facial droop unclear onset, also right ear pain/discharge, dizziness and unsteady gait. -Right facial droop , Otitis media with facial nerve paralysis vs CVA on differential. Less likely Cardenas's palsy based on clinical presentation as no clear suggestion for HSV infection. 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 ENT office called, Discussed with Dr. Jaya Alexis, to see patient today, will follow up. Feels 3 mm nodule unlikely to explain current ear findings and facial nerve symptoms. MRIbrain noted. Unasyn day 1 for possible emperic otitis media with complications. Hold off on steroids till ENT input. Avoid water right ear, eye care with artificial tears. Hold off on MRA head/neck given current clinical presentation/MRI brain findings pending neurology input. 3 mm nodule internal auditory canal, ?leptomeningeal disease vs schwannoma. 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 Corbin. Cardiology input appreciated. resume losartan based on BP readings. Follow up with neurology. Continue metoprolol Unclear why patient not on statin, retrieve more information from PCP. Known h/o pancytopenia, trend CBC for now. SCDs in bed but hold off on pharmacological DVTPPx x24 hours. Continue lasix/aldactone. Bedside speech/swallow eval passed, PO as tolerated. Speech/swallow full eval. GIPPX with protonix Code: DNR/DNI, kymberly Joe HCP, witnessed by kymberly Joe at bedside PT/OT eval and CM consult for d/c planning. Plan discussed with patient in detail, all questions answered. All care co- ordinated with ENT Dr. Alexis, Dr. Pennington, Neurology Dr. Snyder (office called ), total time spent in patient visit, discussion with patient, RN, consultants and co-ordination of care 35 min.
--- NOTE | 2017-05-22 12:39 | CONS ---
DATE OF CONSULTATION: 05/22/2017 CONSULTATION REQUESTED BY: Hospitalist. CHIEF COMPLAINT: Right facial droop, dizziness. An 87-year-old male, well known to our service, with known history of coronary artery disease, single-vessel obstructive coronary artery disease, angina pectoris, diastolic left ventricular dysfunction, with chronic class 1 to 2 [place] [employer] classification left ventricular failure, persistent atrial fibrillation, [id number] score of 5, currently on no anticoagulation therapy, related to history of recurrent gastrointestinal bleed, atrial septal defect post surgical repair, hypertensive cardiovascular disease, hypercholesterolemia, chronic obstructive pulmonary disease, reactive airway disease, pulmonary hypertension, degenerative joint disease, who presented to [facility] yesterday when he was noted by his to have right facial droop. Prior to the above- noted presentation, patient had reported dizziness, which was exacerbated by certain movements. Patient denied any associated nausea or vomiting. Patient did not report any additional neurologic deficits. Patient continues to report persistence of dyspnea with mild to moderate physical exertion. Patient denies any orthopnea or paroxysmal nocturnal dyspnea. Patient reports intermittent bilateral lower extremity edema that worsens in the latter part of the day. Patient denies any chest discomfort. Patient denies any palpitations or syncope. Patient reports persistence of fatigue and tiredness. PAST MEDICAL HISTORY: Coronary artery disease, single-vessel obstructive coronary artery disease, angina pectoris, diastolic left ventricular dysfunction with chronic class 1 to 2 [place] [employer] classification left ventricular failure, persistent atrial fibrillation, currently on no anticoagulation therapy, related to history of recurrent gastrointestinal bleed, hypertensive cardiovascular disease , hypercholesterolemia, atrial septal defect post surgical repair, pulmonary hypertension, history of respiratory failure, chronic obstructive pulmonary disease, reactive airway disease, gastrointestinal bleed, pancytopenia, chronic kidney disease. SOCIAL HISTORY: Prior history of smoking FAMILY HISTORY: Positive coronary artery disease. ALLERGIES: No known medical allergies. Medical therapy currently includes Ventolin HFA, Lasix 40 mg every 48 hours, Lopressor 25 mg twice a day, Protonix 40 mg twice a day, MiraLax 17 g as needed, Aldactone 25 mg twice a day. REVIEW OF SYSTEMS: Head and Neck: Denies headache, photophobia, blurring of vision, but reports right earache with drainage. Respiratory: Reports persistent dyspnea. Cardiovascular: As noted above. Gastrointestinal: Denies nausea, vomiting, diarrhea, abdominal discomfort. Genitourinary: No symptoms reported. Musculoskeletal: No symptoms reported. PHYSICAL EXAMINATION: Vital Signs: Blood pressure is 129/55 mmHg. Pulse rate is 93 beats per minute, irregular. Temperature 98.8. Oxygen saturation 97%. Head and Neck: Pupils are equally reactive to light and accommodation. Extraocular muscles are intact. Right eyelid droop with right facial droop. Negative JVD. No bruit appreciated. Chest: Diminished breath sounds at the bases bilaterally. Cardiovascular: S1, S2. Irregularly irregular. Grade 2/6 systolic apical murmur. Abdomen: Soft, benign. Normoactive bowel sound. Extremities: Trace to 1+ edema bilaterally, 1+ distal pulses. Chronic venous stasis changes were noted. EKG reveals atypical atrial tachycardia with variable AV conduction with premature ventricular contraction and complete right bundle-branch block. INR 1.17. CBC revealed white cell count 2.2, hemoglobin 10.5, platelet count 111. Basic metabolic profile revealed sodium 139, potassium 4.6, BUN 18, creatinine 1.3, glucose 99, with normal liver profile. Cholesterol 85, LDL 49, HDL 31, triglycerides 69. Chest x-ray report was noted. MRI of the brain report was noted. CT scan of the head report was noted. ASSESSMENT: 1. 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 2. Right earache and drainage. 3. Dizziness, clinical presentation consistent with benign positional vertigo. 4. Diastolic left ventricular dysfunction with chronic class 1 to 2 [place] [employer] classification left ventricular failure, compensated/euvolemic. 5. Coronary artery disease, single-vessel obstructive coronary artery disease, angina pectoris, stable. 6. Persistent atrial fibrillation post prior maze and left atrial appendage ligation, CHADS-VASc score of 5, currently off of anticoagulation therapy. 7. Pulmonary hypertension. 8. Hypertensive cardiovascular disease. 9. Hypercholesterolemia. 10. Atrial septal defect, post surgical repair. 11. History of hypercapnic respiratory failure, underlying chronic obstructive pulmonary disease. 12. Pancytopenia. 13. Chronic kidney disease. RECOMMENDATION: 1. Continuation of Lasix and Aldactone with caution and close monitoring of renal function. 2. Continuation of beta stanley therapy with Lopressor, hemodynamics permitting. 3. As outlined in prior admission note, would recommend withholding anticoagulation therapy indefinitely, recognizing patient's elevated stroke risk, CHADS-VASc score of 5, considering his history of recurrent GI bleed. Patient is not a candidate for left atrial appendage closure device, since he has a prior history of left atrial appendage ligation. 4. Neurology and ENT evaluation for the above-noted pathologies. Thank you for the kind referral. GATO ZHOU M.D. ERI/[id number] MTDD
[2017-05-22 13:03] LABS: TOTAL CELLS COUNTED 100
[2017-05-22 13:04] LABS: PLATELET ESTIMATE ADEQUATE
--- NOTE | 2017-05-22 13:28 | CONSULT ---
Consult - text type - Consultation Consultation Note: HEMATOLOGY ONCOLOGY CONSULT NTOE : CHIEF COMPLAINT: R facial weakness PCP: Dr. Pfeiffer (patient's nephew) HISTORY OF PRESENT ILLNESS: This is a 87 year old man who presents here with acute R. sided facial weakness. Except for the facial drooling he has no other neurological deficit. After a CT/ MRI Brain no acute stroke is present. He also has R. ear pain and is being treated for otitis media. The ddx is complications of otitis media vs [place] palsy at this time. He is overall stable. 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 Renal CKD PAST SURGICAL HISTORY: -ASD repair Social History: lives with , son lives nearby, ambulates with cane Smoking: quit 30y ago, approx 40 pack year history Alcohol: social Drugs: denies Family History: Heart Disease: Father, Sister, CA: Brother (CVA,PROSTATE CANCE, LUNG CANCER,PANCREATIC CANCER) Allergies: NKDA HOME MEDICATIONS: Losartan Potassium [Cozaar] 25 mg PO DAILY 10/18/16 Albuterol Sulfate Inhaler - [Ventolin HFA Inhaler -] 2 puff IH Q4H PRN #30 inhaler 11/05/16 Metoprolol Tartrate [Lopressor -] 25 mg PO BID #60 tablet 11/05/16 Pantoprazole Sodium [Protonix -] 40 mg PO BID #60 tab 11/05/16 Polyethylene Glycol 3350 [Miralax 119 gm Btl -] 17 gm PO BID bottle 11/05/16 Spironolactone [Aldactone -] 25 mg PO BID #60 tablet 11/05/16 Furosemide [Lasix -] 40 mg PO Q48H 05/21/17 Prednisone [Deltasone -] 20 mg PO DAILY 05/21/17 REVIEW OF SYSTEMS CONSTITUTIONAL: Absent: fever, chills, diaphoresis, generalized weakness, malaise, loss of appetite, weight change HEENT: +R ear pain Absent: rhinorrhea, nasal congestion, throat pain, throat swelling, difficulty swallowing, mouth swelling CARDIOVASCULAR: Absent: chest pain, syncope, palpitations, irregular heart rate, lightheadedness , peripheral edema RESPIRATORY: Absent: cough, shortness of breath, dyspnea with exertion, orthopnea, wheezing, stridor, hemoptysis GASTROINTESTINAL: Absent: abdominal pain, abdominal distension, nausea, vomiting, diarrhea, constipation, melena, hematochezia GENITOURINARY: Absent: dysuria, frequency, urgency, hesitancy, hematuria, flank pain, genital pain MUSCULOSKELETAL: Absent: myalgia, arthralgia, joint swelling, back pain, neck pain SKIN: Absent: rash, itching, pallor HEMATOLOGIC/IMMUNOLOGIC: Absent: , easy bruising, lymphadenopathy, frequent infections ENDOCRINE:Absent: unexplained weight gain, unexplained weight loss, heat intolerance, cold intolerance NEUROLOGIC: +unsteady gait, facial weakness, vertigo Absent: headache, paresthesias,seizure, mental status changes, bladder or bowel incontinence PSYCHIATRIC: Absent: anxiety, depression, suicidal or homicidal ideation, hallucinations. Vital Signs Period Temp Pulse Resp BP Sys/Brian Pulse Ox Last 24 Hr 97.3 F-98.8 F 79-100 16-20 103-129/52-73 95-100 PHYSICAL EXAMINATION GENERAL: aaox3, nad, R facial paralysis HEAD: Normal with no signs of trauma. HEENT: EOMI, PERRLA NECK: no cervical LAD, no JVD LUNGS: CTAB, no wheezing or accessory muscle use HEART: rrr, normal S1/S2, no murmur, rub or gallop ABDOMEN: soft, ntnd UPPER EXTREMITIES: 2+ pulses, warm, well-perfused. No cyanosis. No clubbing. No peripheral edema. LOWER EXTREMITIES: b/l venous stasis, wwp, no calf tenderness, no peripheral edema NEUROLOGICAL: R CNVII weakness CBC, BMP 05/22/17 06:15 05/22/17 06:15 Active Medications Generic Name Dose Route Start Last Admin Trade Name Freq PRN Reason Stop Dose Admin Albuterol Sulfate 2 puff 05/21/17 16:26 Ventolin Hfa Inhaler - IH Q4H PRN SHORT OF BREATH/WHEEZING Artificial Tears 2 drop 05/21/17 18:00 05/22/17 09:06 Artificial Tears OU 2 drop Q4HWA RUBIA Administration Furosemide 40 mg 05/22/17 10:00 05/22/17 09:05 Lasix - PO 40 mg Q48H RUBIA Administration Ampicillin Sodium/Sulbactam 100 mls @ 200 mls/hr 05/21/17 16:30 05/22/17 09: 05 Sodium 1.5 gm/ Sodium Chloride IVPB 200 mls/hr Q6H-IV RUBIA Administration Metoprolol Tartrate 25 mg 05/21/17 22:00 05/22/17 09:05 Lopressor - PO 25 mg BID RUBIA Administration Pantoprazole Sodium 40 mg 05/21/17 22:00 05/22/17 09:06 Protonix - PO 40 mg BID RUBIA Administration Polyethylene Glycol 17 gm 05/21/17 22:00 05/22/17 09:06 Miralax (For Daily Use) - PO Not Given BID RUBIA Spironolactone 25 mg 05/21/17 22:00 05/22/17 09:05 Aldactone - PO 25 mg BID RUBIA Administration IMAGING: CT Head and MRI reviewed ASSESSMENT/PLAN: 87 yo man with significant PMH of CHF, CAD, Afib (off AC), COPD, pancytopenia here with R. VIII nerve palsys concistent with otitis emdia complication vs [place] palsy. At this time this is not indicative of lymphoma involvement. 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 He also has involvement of the BM and splenomegaly which are likely to contribute to this. We will continue to follow. #R facial paralysis, suspect complication of otitis media #HTN #CHF #COPD #GERD
--- NOTE | 2017-05-22 15:06 | CON.ENT ---
Consult Referred by:: Gladys Noriega MD Reason for Consultation:: Right facial weakness and right ear swelling. - History of Present Illness Chief Complaint: Right facial weakness, right ear swelling with pain and bloody d/c and dizziness. He also c/o nasal stuffiness and dryness, this is chronic. History of Present Illness: 87 YO male with right ear discomfort and dizziness for 3-4 days. He was poking at his ear and apparently lacerated it. 2 nights ago noticed a right facial weakness and came to hospital yesterday and was admitted and started on Unasyn for redness and swelling of the right external ear. Dx'd with a right Cardenas's Palsy. Denies dysphagia but has been unsteady with walking and c/o of some dizziness. 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 No recent URI. NO DM. 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 No: Cancer, O2 Dependent , Previously Intubated, Pulmonary Embolus Musculoskeletal: Yes: Osteoarthritis. No: Chronic low back pain ENT: Yes: Other (H/O EPISTAXSIS WITH ER VISTS TWICE OVER PAST 12 MONTHS.) - Alcohol/Substance Use Hx Alcohol Use: No History of Substance Use: reports: None - Smoking History Smoking history: Former smoker Have you smoked in the past 12 months: No If you are a former smoker, when did you quit?: 1984 - Social History ADL: Family Assistance History of Recent Travel: No Home Medications - Allergies Allergies/Adverse Reactions: Allergies Allergy/AdvReac Type Severity Reaction Status Date / Time No Known Allergies Allergy Verified 05/21/17 12:39 - Home Medications Home Medications: Ambulatory Orders Losartan Potassium [Cozaar] 25 mg PO DAILY 10/18/16 Albuterol Sulfate Inhaler - [Ventolin HFA Inhaler -] 2 puff IH Q4H PRN #30 inhaler 11/05/16 Metoprolol Tartrate [Lopressor -] 25 mg PO BID #60 tablet 11/05/16 Pantoprazole Sodium [Protonix -] 40 mg PO BID #60 tab 11/05/16 Polyethylene Glycol 3350 [Miralax 119 gm Btl -] 17 gm PO BID bottle 11/05/16 Spironolactone [Aldactone -] 25 mg PO BID #60 tablet 11/05/16 Furosemide [Lasix -] 40 mg PO Q48H 05/21/17 Prednisone [Deltasone -] 20 mg PO DAILY 05/21/17 Family Disease History - Family Disease History Family Disease History: Heart Disease: Father, Sister, CA: Brother (CVA, PROSTATE CANCE,LUNG CANCER,PANCREATIC CANCER), Other: Brother Physical Exam-ENT Vital Signs: Vital Signs Temperature 98 F 05/22/17 10:00 Pulse Rate 86 05/22/17 10:00 Respiratory Rate 18 05/22/17 10:00 Blood Pressure 120/60 05/22/17 10:00 O2 Sat by Pulse Oximetry (%) 96 05/22/17 09:00 Constitutional: Yes: Well Nourished, Calm Head: Yes: WNL Face: Yes: Facial Weakness Right Nose: Yes: Other (dry and crusty in the nose R>L.) Oral/Pharynx: Yes: WNL Outer Ear: Yes: Redness (right with mild redness, swelling but no obvious crusting.) Ear Canal: Yes: Other (Left ear wnl. Right ear canal with clot and bleeding. Cleaned out and cauterized a laceration in the posterior deep canal. Canal is open and no vesicles or crusting seen.) Tympanic Membrane: Yes: Other (Both TM's are intact and no redness seen. NO ovbious middle ear fluid.) Neck: Yes: WNL Respiratory: Yes: WNL Imaging - Results Cat Scan: Report Reviewed, Image Reviewed MRI: Report Reviewed (CT scan of the head shows clear middle ears and mastoids.) Problem List - Problems (1) Laceration of right ear canal Code(s): S01.311A - LACERATION WITHOUT FOREIGN BODY OF RIGHT EAR, INIT ENCNTR (2) Laceration of right ear canal Assessment/Plan: Controlled with cautery and can be observed. Pt cautioned about using q-tips. Code(s): S01.311A - LACERATION WITHOUT FOREIGN BODY OF RIGHT EAR, INIT ENCNTR (3) Dizziness Assessment/Plan: Observe in the hospital until feeling better and can then be d/c home. Dr Treadwell will cover starting tomorrow. Code(s): R42 - DIZZINESS AND GIDDINESS (4) Chronic rhinitis Assessment/Plan: Saline spray both nostrils prn and can also place vaseline in there for lubrication. 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 REC: One week of Valtrex, prednisone taper from 60mg x 2days, 40mg x 2, 20mg x2 , 10 x2. Con't a week of augmentin therapy. Discussed with Dr Noriega and Dr Snyder. Code(s): R29.810 - FACIAL WEAKNESS
--- NOTE | 2017-05-22 15:25 | CONSULT ---
Consult - text type - Consultation Consultation Note: NEUROLOGY CONSULTATION is greatly appreciated: Events reviewd and discussed with Dr. Dowell in the ED and Dr. Cablelo on the floor. This 87 yo RH man lives with his . PMH sig: HTN, COPD, Pulm. HTN, CHF, AFib and Lymphoma with Pancytopenia. Maintained on Prednisone, albuterol, metoprolol, furosamide and spironolactone. Pt. relates a week of unsteady gait, "walking like a drunk" and feeling pulled to the right. "Finally using his cane." No dizziness in bed or chair. No tinnitis. For 3 days he has had an ache and sensation of Fullness in the right ear and attempted to remove possible obstruction. Admitted yesterday after he noticed Right facial droop in the AM. Dr. Cabello removed a blood clot from, and noted a laceration in the Right EAC. CT and MRI of Brain (both reviewed): Shows moderately severe atrophy and diffuse microvasular changes. Carotid duplex doppler showed 50% right ICA stenosis. BALDEV: No bruits. Cor irreg. No evidence of external head trauma. R ear lobe and pinna are erythematous and swollen. NEURO: MS/speech: Normal CN: Right peripheral facial. Full EOM's without nystamus. Full [place]. Gag [place] Motor: No drigt or tremor. Normal strength, tone and bulk. Normal reflexes except absent AJ's. Downgoing toes. Coord: No FTN Dystaxia Sensory: Decreased vibration over the toes. Romberg +/-. Gait: Variable and unsteady. Requires assistance. IMP: 1. Right CN VII Mononeuropathy (Cardenas's Palsy). Right periauricular pains would be a common antecedent symptom. 2. Chronic multifactorial gait dysfunction with contribution from PEDIATRIC ANESTHESIOLOGIST microvascular disease and possible peripheral neuropathy. 3. Possible labyrinthine dysfunction (vertigo) may account for dizziness and worsening gait over the last week. Suggest: Short coarse of increased steroids for acute Cardenas's Palsy. Repeat MRI of brain with contrast to r/o leptomeningeal and/or intracanillicular lesion Check B12, ESR, CRP PT for gait with walker. Thank you very much, Wayne Snyder MD
[2017-05-22] MEDS: valACYclovir HCL 1000 MG TABLET PO SCH ×2 (15:55→21:32)
[2017-05-22] MEDS: predniSONE 20 MG TABLET (UD) PO SCH (15:55)
[2017-05-23] MEDS ORDERED: PT OWN MED DRAWER 7, Y5N ONE ×3 (03:40→11:23)
[2017-05-23] MEDS: AMPICILLIN NA/SULBACTAM NA 1.5 GM in SODIUM CHLORIDE 100 ML IVPB SCH ×3 (03:46→14:37)
[2017-05-23] MEDS: ARTIFICIAL TEARS (POLYVINYL ALCOHOL 1.4%) OPTH DROPS OU SCH ×5 (05:48→17:30)
[2017-05-23] MEDS ORDERED: valACYclovir HCL 500 MG TABLET (FP) PO SCH (06:00)
--- NOTE | 2017-05-23 06:22 | PN ---
Physical Exam: 24H Events: yesterday - seen by ENT, started on Valtrex and steriods ON - no events AM - pancytopenic (WBC 1.2, 60% PMNs), placed on neutropenic precautions SUBJECTIVE: Patient seen and examined. R ear pain improved, no further drainage. No episodes of dizziness, chest pain, or chest pressure. OBJECTIVE: Vital Signs Period Temp Pulse Resp BP Sys/Brian Pulse Ox Last 24 Hr 98 F-99.4 F 79-98 18-18 104-120/54-66 95-96 GENERAL: aaox3, nad EYES: sclera anicteric, conjunctiva clear ENT: oropharynx clear without exudates, moist mucous membranes LUNGS: CTAB, no wheezing HEART: rrr, normal s1/s2 ABDOMEN: Soft, ntnd, no guarding or rebound tenderness LOWER EXT: b/l venous stasis, wwp, no calf tenderness, no peripheral edema NEUROLOGICAL: unchanged: R CNVII weakness (mild decrease in R forehead wrinkle , eyelid closure, and nasolabial flatness); facial sensation intact bilaterally and in all 4 extremities, muscle strength 5/5 all 4 extremities CBC, BMP 05/23/17 05:27 05/23/17 05:27 Hepatic Panel Total Bilirubin 0.8 mg/dL (0.2-1.0) 05/23/17 05:27 AST 12 U/L (15-37) L 05/23/17 05:27 ALT 10 U/L (12-78) L 05/23/17 05:27 Alkaline Phosphatase 74 U/L (45-117) 05/23/17 05:27 Albumin 2.6 g/dl (3.4-5.0) L 05/23/17 05:27 IMAGING: Brain MRI w/o Contrast (05/21/17) IMPRESSION: 1. No evidence of acute or subacute infarction. No mass effect, midline shift or hydrocephalus. 2. T1 hypointense bone marrow signal as described above, suspicious for infiltrative marrow replacing process. Please correlate clinically. 3. Focal 3 mm nodularity in the superior aspect of the RIGHT internal auditory canal is not well evaluated without IV contrast. Cannot exclude leptomeningeal disease or right IAC mass, such as a schwannoma. Suggest further evaluation with contrast-enhanced MRI. If there is clinical suspicion for leptomeningeal disease, then please correlate with CSF analysis. 4. Generalized, age appropriate volume loss with mild chronic microvascular ischemic changes. 5. Punctate foci of susceptibility as described are likely hemosiderin from prior petechial microhemorrhages. This is statistically likely to be due to hypertension, although amyloid angiopathy is not excluded. Carotid doppers (05/21/17): Moderate calcified atheromatous plaque in the right carotid bulb with elevated peak systolic velocity in the proximal right ICA is suggestive of 50-69% stenosis. 2D ECHO (05/23/17): pending Active Medications Albuterol Sulfate (Ventolin Hfa Inhaler -) 2 puff IH Q4H PRN PRN Reason: SHORT OF BREATH/WHEEZING Artificial Tears (Artificial Tears) 2 drop OU Q4HWA RUBIA Furosemide (Lasix -) 40 mg PO Q48H RUBIA Ampicillin Sodium/Sulbactam (Sodium 1.5 gm/ Sodium Chloride) 100 mls @ 200 mls/ hr IVPB Q6H-IV RUBIA Lorazepam (Ativan Injection -) 2 mg IVPUSH PRN ONE Stop: 05/23/17 13:31 Metoprolol Tartrate (Lopressor -) 25 mg PO BID RUBIA Pantoprazole Sodium (Protonix -) 40 mg PO BID RUBIA Polyethylene Glycol (Miralax (For Daily Use) -) 17 gm PO BID RUBIA Prednisone (Deltasone -) 60 mg PO DAILY RUBIA Spironolactone (Aldactone -) 25 mg PO BID RUBIA Valacyclovir HCl (Valtrex -) 1,000 mg PO TID RUBIA ASSESSMENT/PLAN: 87yo man with PMH of CHF, CAD, Afib (off AC), COPD, pancytopenia (prior bone low grade lymphoma) who presents with acute R facial droop with R ear pain/ discharge, and dizziness for the past few days likely due to Otitis media vs HSV Cardenas's palsy. No focal deficits are seen, and Brain MRI/Head CT is not c/w CVA. 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) for 1 week with prednisone taper (60mg x2d, 40mg x2d, 20mg x2d, 10mgx 2) -Avoid water in R ear, BRP with assist, Neuro checks q4h #R 3mm nodule superior aspect R internal auditory canal -f/u Brain MRI w contrast to r/o leptomeningeal and/or intracanillicular lesion (GFR 47, no gadolinium contrast c/i) #HTN -Continue home losartan #CHF -Continue home metoprolol, lasix, spironolactone #COPD -Oxygen therapy to maintain SpaO2>90% -Continue home Albulterol inhaler q4h PRN #GERD -Continue home Prontonix #FEN/PPx -Hold IVFs -lytes wnl -Regular diet, neutropenic precautions #PT evaluation for gait with walker #PPX -DVT SCDs -GI - home protonix bid #DISPO: transfer to private room for neutropenic precautions DNR/DNI per patient, witnessed by Son (Heath) at bedside, who is HCP d/w Dr. Leann Lynch MD PGY-1 Visit type - Emergency Visit Emergency Visit: No - New Patient This patient is new to me today: No - Critical Care Critical Care patient: No
[2017-05-23 07:37] LABS: MCH 29.1 pg (25.7-33.7); MCHC 32.4 g/dl (32.0-35.9); MEAN CELL VOLUME 89.8 fl (80-96); MEAN PLT VOLUME 7.5 fl (7.5-11.1); PLATELET COUNT 95 K/MM3 (134-434); RDW 16.7 % (11.9-15.9)
[2017-05-23 07:48] LABS: WHITE BLOOD COUNT 1.1 K/mm3 (4.0-10.0)
--- NOTE | 2017-05-23 07:59 | PN ---
Teaching Attending Note Name of Resident: Ryanne Lynch ATTENDING PHYSICIAN STATEMENT Time of evaluation: 9:40 AM I saw and evaluated the patient. I reviewed the resident's note and discussed the case with the resident. I agree with the resident's findings and plan as documented. SUBJECTIVE: Patient seen and examined. right ear pain but improved. Dizziness better, only positional. No other complaints. OBJECTIVE: Vital Signs Period Temp Pulse Resp BP Sys/Brian Pulse Ox Last 24 Hr 98 F-99.4 F 73-98 18-18 97-120/44-66 95-96 Intake & Output 05/20/17 05/21/17 05/22/17 05/23/17 23:59 23:59 23:59 23:59 Intake Total 130 780 480 Output Total 200 1300 500 Balance -70 -520 -20 Weight 174 lb General: lying in bed no acute distress CVS: S1S2 regular Chest; CTAB, no rales or wheezing HEENT; right ear packing, no active bleed, Right eye tearing with some conjunctival erythema neuro: AAOx3, right facial droop unchanged, PERRLA, EOMI, no pronator drift, power 5/5, unchanged exam Home Medication List Medication Instructions Recorded Confirmed Type Losartan Potassium [Cozaar] 25 mg PO DAILY 10/18/16 05/21/17 History Furosemide [Lasix -] 40 mg PO Q48H 05/21/17 05/21/17 History Prednisone [Deltasone -] 20 mg PO DAILY 05/21/17 05/21/17 History Active Medications Generic Name Dose Route Start Last Admin Trade Name Freq PRN Reason Stop Dose Admin Albuterol Sulfate 2 puff 05/21/17 16:26 Ventolin Hfa Inhaler - IH Q4H PRN SHORT OF BREATH/WHEEZING Artificial Tears 2 drop 05/21/17 18:00 05/23/17 05:48 Artificial Tears OU 2 drop Q4HWA RUBIA Administration Furosemide 40 mg 05/22/17 10:00 05/22/17 09:05 Lasix - PO 40 mg Q48H RUBIA Administration Ampicillin Sodium/Sulbactam 100 mls @ 200 mls/hr 05/21/17 16:30 05/23/17 03: 46 Sodium 1.5 gm/ Sodium Chloride IVPB 200 mls/hr Q6H-IV RUBIA Administration Metoprolol Tartrate 25 mg 05/21/17 22:00 05/22/17 21:32 Lopressor - PO 25 mg BID RUBIA Administration Pantoprazole Sodium 40 mg 05/21/17 22:00 05/22/17 21:32 Protonix - PO 40 mg BID RUBIA Administration Polyethylene Glycol 17 gm 05/21/17 22:00 05/22/17 21:33 Miralax (For Daily Use) - PO Not Given BID RUBIA Prednisone 60 mg 05/22/17 15:00 05/22/17 15:55 Deltasone - PO 60 mg DAILY RUBIA Administration Spironolactone 25 mg 05/21/17 22:00 05/22/17 21:32 Aldactone - PO 25 mg BID RUBIA Administration Valacyclovir HCl 1,000 mg 05/23/17 06:00 05/23/17 05:48 Valtrex - PO 1,000 mg TID RUBIA Administration Laboratory Results - last 24 hr 05/22/17 05/23/17 05/23/17 06:15 05:27 05:27 WBC 1.1 L* D RBC 3.50 L Hgb 10.2 L Hct 31.4 L MCV 89.8 MCH 29.1 MCHC 32.4 RDW 16.7 H Plt Count 95 L MPV 7.5 Total Counted 100 100 Neutrophils % [employer] Intelligence Officer Neutrophils % (Manual) 66.0 D 60.0 Band Neutrophils % 0.0 No Result Required. Lymphocytes % Air Intelligence Officer Lymphocytes % (Manual) 15.0 D 28.0 D Monocytes % [employer] Intelligence Officer Monocytes % (Manual) 16 H* 10 Eosinophils % Air Intelligence Officer Eosinophils % (Manual) 2.0 2.0 Basophils % [employer] Intelligence Officer Basophils % (Manual) 1.0 Platelet Estimate Adequate Platelet Comment No Result Required. ESR Sodium 136 Potassium 4.8 Chloride 98 Carbon Dioxide 33 H Anion Gap 5 L BUN 23 H D Creatinine 1.4 H Creat Clearance w eGFR 47.83 Random Glucose 134 H D Calcium 8.4 L Total Bilirubin 0.8 AST 12 L ALT 10 L Alkaline Phosphatase 74 C-Reactive Protein Total Protein 7.5 Albumin 2.6 L Vitamin B12 05/23/17 05/23/17 05:27 05:27 WBC RBC Hgb Hct MCV MCH MCHC RDW Plt Count MPV Total Counted Neutrophils % Neutrophils % (Manual) Band Neutrophils % Lymphocytes % Lymphocytes % (Manual) Monocytes % Monocytes % (Manual) Eosinophils % Eosinophils % (Manual) Basophils % Basophils % (Manual) Platelet Estimate Platelet Comment ESR 125 H Sodium Potassium Chloride Carbon Dioxide Anion Gap BUN Creatinine Creat Clearance w eGFR Random Glucose Calcium Total Bilirubin AST ALT Alkaline Phosphatase C-Reactive Protein 0.3 Total Protein Albumin Vitamin B12 573 D MRI brain results reviewed Carotid doppler results noted Contrast MRI brain pending ASSESSMENT AND PLAN: 87 yom with Afib not on coumadin, CAD with 1 vessel disease with medical management, ASD s/p open repair, Afib with Cryomaze procedure, Chronic systolic/ Diastolic HF, COPD on 2L home oxygen, HTN, GI bleed, pancytopenia (?neg bone marrow biopsy), admitted with right facial droop unclear onset, also right ear pain/discharge, dizziness and unsteady gait. 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 Cleaned and cauterized. Continue care, avoid water in right ear. Unasyn day 3. Valacyclovir/prednisone for possible Cardenas's palsy. Prednisone taper over 1 week as discussed with Dr. Snyder (60 mg, taper by 20 mg every 2 days till off). Eye care with artifical tears. Feels 3 mm nodule unlikely to explain current ear findings and facial nerve symptoms. Follow up MRI brain with contrast. Mucomyst, encourage oral fluid intake, hold lasix for 24-48 hours. Discuss with radiology to minimize contrast or change for renal function. 3 mm nodule internal auditory canal, ?leptomeningeal disease vs schwannoma. 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 Worsening pancytopenia with leucopenia/neutropenia today. Neutropenic precautions, follow up with oncology. Cardiology input appreciated. resume losartan based on BP readings. Continue metoprolol Unclear why patient not on statin, retrieve more information from PCP. SCDs in bed but hold off on pharmacological DVTPPx given worsening pancytopenia. Continue lasix/aldactone. Bedside speech/swallow eval passed, PO as tolerated. Speech/swallow full eval. GIPPX with protonix Code: DNR/DNI, kymberly Heath HCP, witnessed by kymberly Joe at bedside PT/OT eval and CM consult for d/c planning.
[2017-05-23 08:11] LABS: ALBUMIN 2.6 g/dl (3.4-5.0); CALCIUM 8.4 mg/dL (8.5-10.1)
[2017-05-23 08:14] LABS: ALK PHOS 74 U/L (45-117); ANION GAP 5 (8-16); BILIRUBIN,TOTAL 0.8 mg/dL (0.2-1.0); CO2 33 mmol/L (21-32); CREATININE 1.4 mg/dL (0.7-1.3); GLUCOSE,RANDOM 134 mg/dL (74-106); SGOT/AST 12 U/L (15-37); SGPT/ALT 10 U/L (12-78); TOT PROT 7.5 g/dl (6.4-8.2)
[2017-05-23 08:19] LABS: C-REACTIVE PROTEIN 0.3 MG/DL (0.00-0.3)
[2017-05-23 09:18] LABS: TOTAL CELLS COUNTED 100
[2017-05-23] MEDS: METOPROLOL TARTRATE 25 MG TABLET (FP) PO SCH (09:51)
[2017-05-23] MEDS: PANTOPRAZOLE 40 MG TABLET (FP) PO SCH (09:51)
[2017-05-23] MEDS: predniSONE 20 MG TABLET (UD) PO SCH (09:51)
[2017-05-23] MEDS: SPIRONOLACTONE 25 MG TABLET (FP) PO SCH (09:51)
--- NOTE | 2017-05-23 10:59 | CONSULT ---
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 REC: One week of Valtrex, prednisone taper from 60mg x 2days, 40mg x 2, 20mg x2 , 10 x2. Con't a week of augmentin therapy." Neurology imp "1. Right CN VII Mononeuropathy (Quiles's Palsy). Right periauricular pains would be a common antecedent symptom. 2. Chronic multifactorial gait dysfunction with contribution from SOLAR SALES CONSULTANT microvascular disease and possible peripheral neuropathy. 3. Possible labyrinthine dysfunction (vertigo) may account for dizziness and worsening gait over the last week. " Initially placed on pureed diet, upgraded today to regular. No signs of dysphagia have been reported. 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 No: Cancer, O2 Dependent , Previously Intubated, Pulmonary Embolus Heme/Onc: Yes: Other (PATIENT IS ON COUMADIN). No: B12 Deficiency, Bleeding Disorder Musculoskeletal: Yes: Osteoarthritis. No: Chronic low back pain ENT: Yes: Other (H/O EPISTAXSIS WITH ER VISTS TWICE OVER PAST 12 MONTHS.) - Smoking History Smoking history: Former smoker Have you smoked in the past 12 months: No If you are a former smoker, when did you quit?: 1984 - Alcohol/Substance Use Hx Alcohol Use: No History of Substance Use: reports: None - Social History Usual Living Arrangement: Yes: With Spouse (Cares for his ) ADL: Family Assistance History of Recent Travel: No History - Admission Reason For Visit: FACIAL WEAKNESS - Diagnostics CT Scan: Report Reviewed ( moderately severe atrophy and diffuse microvasular changes.) MRI: Report Reviewed ( moderately severe atrophy and diffuse microvasular changes.) Other: Report Reviewed (Carotid duplex doppler showed 50% right ICA stenosis.) - General Mental Status: Alert and Oriented, Awake and Alert, Able to Follow Commands Attention: Intact Ability to Follow Directions: Excellent Head/Neck Control: Good - Hearing Hearing: Functional Hearing Aide: No With Patient: No Speech Evaluation - Communication Primary Language: ARABIC Communication: Yes: Within Normal Limits (mild imprecision secondary to right facial paralysis.) - Speech Production Able to Make Needs Known: Yes: WNL Intelligibility: Yes: WNL - Speech Characteristics Voice Loudness: Normal Voice Pitch: Yes: Normal Voice Phonatory-based Quality: Yes: Normal Speech Clarity: < 75% Nasal Resonance: Normal Articulation: Yes: Imprecise - Language/Auditory Comprehension Follows: Yes: 2 Stage Simple Commands - Language/Verbal Expression Able to Respond to Simple Queries: Yes: WNL Able to Communicate Wants and Needs: Yes: WNL Functional Communication Status: Yes: WNL - Memory/Perception senior living Memory: Yes: WNL Short Term Memory: Yes: WNL - Swallow Evaluation/Bedside Assessment Current Nutritional Intake: Regular (pending,upgraded today from puree.), Thin Liquids Oral Secretions: Yes: WFL Dentition: Yes: Missing Teeth Facial Symmetry at Rest: Facial Droop Right (and right eye with incomplete closure.) Facial Symmetry on Retraction: Facial Droop Right (no movement) Sensation: Normal Pucker Lips: Droops Right Smile: Droops Right Lingual Movement: Symmetric, Other (Horizontal repair sec to accident at age 3.) Lingual Speed of Movement: Normal Lingual Movement Strgth Against Opposition: Normal Lingual Movement Characteristics: Normal Velopharyngeal Movement: Normal Laryngeal Elevation: WFL Laryngeal Movement: Able to Palpate Rate of Intake: WFL Labial Seal: Impaired Right (drools when drinks) Chewing: WFL Oral Prep Time: WFL A-P Transit: WFL Pocketing: None Timing of Swallow: WFL Coughing/Throat Clear: No Change in Voice: No Recommendations - Speech Evaluation, Impression/Plan Impression: 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 Pt drools from right when drinking. Swallowing intact. - Dysphagia Impressions/Plan Swallowing Skills: [facility] Dysphagia Treatment Plan: Labial Exercises Recommendations: Other (Drink from straw on left side. Chew on left side.) - Recommendations Diet Consistency: Regular Medication Administration: Whole with water Liquids: Thin Liquids, Other
[2017-05-23] MEDS: POLYETHYLENE GLYCOL 3350 119 GM BTL PO SCH (11:21)
[2017-05-23] MEDS ORDERED: ALBUTEROL SO4 18 GM HFA INHALER IH PRN (12:26)
--- NOTE | 2017-05-23 13:11 | PN ---
Progress Note, Physician Chief Complaint: Events noted Facial droop noted Underlying AF History of Present Illness: Patient was seen and examined. Awake and alert. Chart was reviewed Denies chest pain, SOB or palpitations - Current Medication List Current Medications: Active Medications Albuterol Sulfate (Ventolin Hfa Inhaler -) 2 puff IH Q4H PRN PRN Reason: SHORT OF BREATH/WHEEZING Artificial Tears (Artificial Tears) 2 drop OU Q4HWA RUBIA Furosemide (Lasix -) 40 mg PO Q48H RUBIA Ampicillin Sodium/Sulbactam (Sodium 1.5 gm/ Sodium Chloride) 100 mls @ 200 mls/ hr IVPB Q6H-IV RUBIA Metoprolol Tartrate (Lopressor -) 25 mg PO BID RUBIA Pantoprazole Sodium (Protonix -) 40 mg PO BID RUBIA Polyethylene Glycol (Miralax (For Daily Use) -) 17 gm PO BID RUBIA Prednisone (Deltasone -) 60 mg PO DAILY RUBIA Spironolactone (Aldactone -) 25 mg PO BID RUBIA Valacyclovir HCl (Valtrex -) 1,000 mg PO TID RUBIA - Objective Vital Signs: Vital Signs Temperature 98.2 F 05/23/17 09:00 Pulse Rate 68 05/23/17 09:00 Respiratory Rate 16 05/23/17 09:00 Blood Pressure 112/50 05/23/17 09:00 O2 Sat by Pulse Oximetry (%) 95 05/23/17 09:00 Cardiovascular: Yes: Pulse Irregular, Murmur (SM), S1, S2 Respiratory: Yes: Diminished Gastrointestinal: Yes: Normal Bowel Sounds, Soft. No: Tenderness Edema: Yes Edema: LLE: Trace, RLE: Trace Additional Findings/Remarks: Review of Systems Constitutional: denies Chills or Fever Respiratory: reports: Dyspnea Cardiovascular: denies: chest pain, palpitation Gastrointestinal: denies Nausea, Vomiting, Diarrhea or Constipation or Abdominal Discomfort Musculoskeletal: No Symptoms Reported Labs: CBC, BMP 05/23/17 05:27 05/23/17 05:27 INR, PTT INR 1.17 (0.82-1.09) H 05/21/17 12:30 Problem List - Problems (1) Facial droop Code(s): R29.810 - FACIAL WEAKNESS (2) Pancytopenia Code(s): D61.818 - OTHER PANCYTOPENIA (3) Pulmonary HTN Code(s): I27.20 - PULMONARY HYPERTENSION, UNSPECIFIED (4) Anemia Code(s): D64.9 - ANEMIA, UNSPECIFIED Qualifiers: Anemia type: iron deficiency (5) COPD (chronic obstructive pulmonary disease) Code(s): J44.9 - CHRONIC OBSTRUCTIVE PULMONARY DISEASE, UNSPECIFIED Qualifiers: COPD type: unspecified COPD Qualified Code(s): J44.9 - Chronic obstructive pulmonary disease, unspecified (6) GI bleed Code(s): K92.2 - GASTROINTESTINAL HEMORRHAGE, UNSPECIFIED Qualifiers: GI bleed type/associated pathology: diverticulosis Qualified Code(s): K57.91 - Diverticulosis of intestine, part unspecified, without perforation or abscess with bleeding (7) Systolic and diastolic CHF, acute on chronic Code(s): I50.43 - ACUTE ON CHRONIC COMBINED SYSTOLIC AND DIASTOLIC HRT FAIL (8) Atrial fibrillation Code(s): I48.91 - UNSPECIFIED ATRIAL FIBRILLATION Qualifiers: Atrial fibrillation type: persistent Qualified Code(s): I48.1 - Persistent atrial fibrillation (9) CAD (coronary artery disease) Code(s): I25.10 - ATHSCL HEART DISEASE OF [place] CORONARY ARTERY W/O ANG PCTRS Qualifiers: Coronary Disease-Associated Artery/Lesion type: [place] artery [place] vs. transplanted heart: [place] heart Associated angina: without angina Qualified Code(s): I25.10 - Atherosclerotic heart disease of [place] coronary artery without angina pectoris (10) H/O atrial septal defect repair Code(s): Z98.89 - OTHER SPECIFIED POSTPROCEDURAL STATES * DO NOT USE *; Z87.74 - PERSONAL HISTORY OF CONGENITAL MALFORM OF HEART AND CIRC SYS (11) Hypercholesterolemia Code(s): E78.0 - PURE HYPERCHOLESTEROLEMIA * DO NOT USE * (12) Hypertension Code(s): I10 - ESSENTIAL (PRIMARY) HYPERTENSION Qualifiers: Hypertension type: essential hypertension Qualified Code(s): I10 - Essential (primary) hypertension (13) Right bundle branch block Code(s): I45.10 - UNSPECIFIED RIGHT BUNDLE-BRANCH BLOCK Assessment/Plan 1. 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 Right ear ache and drainage 3. Dizziness clinical presentation is consistent with benign positional vertigo 4. Diastolic LV dysfunction with chronic class I-II NYHA association LV failure , compensated/euvolemic 5. 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 Persistent atrial fibrillation post Cryo-Maze and NATE ligation, [id number] score of 5, currently off of A/C 7. Moderate to severe degree of pulmonary HTN 8. HTN 9. Hypercholesterolemia 10. ASD post surgical repair 11. 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 History of CKD PLAN: 1. Continue Lasix and Aldactone with caution and close monitoring of renal function 2. Continue Lopressor as tolerated 3. As outlined in prior admission notes recommend withholding A/C therapy at this point indefinitely recognizing elevated stroke risk ([id number] score of 5 ) considering his history of recurrent GI bleed, patient not a candidate for Watchman device insertion with history of NATE ligation 4. Neurology and ENT evaluation Further plans are to follow Emile Leong MD
--- NOTE | 2017-05-23 14:01 | CONSULT ---
Consultation: REQUESTING PROVIDER: CONSULT REQUEST: We have been asked to medically evaluate this patient for ( specify). HISTORY OF PRESENT ILLNESS: Patient is an 87M with afib (not on blood thinners), CAD, CHF, and pulmonary hypertension here today complaining of right sided facial droopiness and dizziness. The facial droop has an unknown onset; last unknown time without facial droop was 10pm yesterday. The patient reports that the dizziness has been going on for the past couple of days and causing the patient to fall over to the right side. The patient is also complaining of some right sided ear pain and clear discharge. Denies nausea vomiting fevers and chills. Says that shortness of breath, cough, and edema is at baseline. He denies chest pain, abdominal pain, and headache. He states that he was taken off blood thinners because his bleeding risk was too high. All: NKDA PCP: Aditi (Patient's nephew) REVIEW OF SYSTEMS: CONSTITUTIONAL: Absent: fever, chills, diaphoresis, generalized weakness, malaise, loss of appetite, weight change HEENT: Absent: rhinorrhea, nasal congestion, throat pain, throat swelling, difficulty swallowing, mouth swelling, right ear pain,Right eye pain, visual changes CARDIOVASCULAR: Absent: chest pain, syncope, palpitations, irregular heart rate, lightheadedness , peripheral edema RESPIRATORY: Absent: cough, shortness of breath, +dyspnea with exertion, orthopnea, wheezing , stridor, hemoptysis GASTROINTESTINAL: Absent: abdominal pain, abdominal distension, nausea, vomiting, diarrhea, constipation, melena, hematochezia GENITOURINARY: Absent: dysuria, frequency, urgency, hesitancy, hematuria, flank pain, genital pain MUSCULOSKELETAL: Absent: myalgia, arthralgia, joint swelling, back pain, neck pain SKIN: Absent: rash, itching, pallor HEMATOLOGIC/IMMUNOLOGIC: Absent: easy bleeding, easy bruising, frequent infections ENDOCRINE: Absent: unexplained weight gain, unexplained weight loss, heat intolerance, cold intolerance NEUROLOGIC: Absent: headache, focal weakness or paresthesias, dizziness, +unsteady gait, seizure, mental status changes, bladder or bowel incontinence PSYCHIATRIC: Absent: anxiety, depression, suicidal or homicidal ideation, hallucinations. PHYSICAL EXAMINATION Vital Signs - 24 hr 05/22/17 05/22/17 05/22/17 17:00 21:00 22:00 Temperature 98.0 F 99 F Pulse Rate 98 H 79 Respiratory 18 18 Rate Blood Pressure 106/66 117/62 O2 Sat by Pulse 95 Oximetry (%) 05/23/17 05/23/17 05/23/17 01:00 05:00 09:00 Temperature 98.0 F 98.4 F 98.2 F Pulse Rate 79 73 68 Respiratory 18 18 16 Rate Blood Pressure 104/61 97/44 112/50 O2 Sat by Pulse 95 Oximetry (%) 05/23/17 12:22 Temperature 98.2 F Pulse Rate 64 Respiratory 17 Rate Blood Pressure 112/55 O2 Sat by Pulse Oximetry (%) GENERAL: aaox3, nad, R facial paralysis HEAD: Normal with no signs of trauma. HEENT: EOMI, PERRLA NECK: no cervical LAD, no JVD LUNGS: CTAB, no wheezing or accessory muscle use HEART: rrr, normal S1/S2, no murmur, rub or gallop ABDOMEN: soft, ntnd UPPER EXTREMITIES: 2+ pulses, warm, well-perfused. No cyanosis. No clubbing. No peripheral edema. LOWER EXTREMITIES: b/l venous stasis, wwp, no calf tenderness, no peripheral edema NEUROLOGICAL: R CNVII weakness Laboratory Results - last 24 hr 05/23/17 05/23/17 05/23/17 05:27 05:27 05:27 WBC 1.1 L* D RBC 3.50 L Hgb 10.2 L Hct 31.4 L MCV 89.8 MCH 29.1 MCHC 32.4 RDW 16.7 H Plt Count 95 L MPV 7.5 Total Counted 100 Neutrophils % [employer] Neutrophils % (Manual) 60.0 Band Neutrophils % No Result Required. Lymphocytes % [employer] Lymphocytes % (Manual) 28.0 D Monocytes % [employer] Monocytes % (Manual) 10 Eosinophils % [employer] Eosinophils % (Manual) 2.0 Basophils % [employer] Stock ESR Sodium 136 Potassium 4.8 Chloride 98 Carbon Dioxide 33 H Anion Gap 5 L BUN 23 H D Creatinine 1.4 H Creat Clearance w eGFR 47.83 Random Glucose 134 H D Calcium 8.4 L Total Bilirubin 0.8 AST 12 L ALT 10 L Alkaline Phosphatase 74 C-Reactive Protein 0.3 Total Protein 7.5 Albumin 2.6 L Vitamin B12 573 D 05/23/17 05:27 WBC RBC Hgb Hct MCV MCH MCHC RDW Plt Count MPV Total Counted Neutrophils % Neutrophils % (Manual) Band Neutrophils % Lymphocytes % Lymphocytes % (Manual) Monocytes % Monocytes % (Manual) Eosinophils % Eosinophils % (Manual) Basophils % ESR 125 H Sodium Potassium Chloride Carbon Dioxide Anion Gap BUN Creatinine Creat Clearance w eGFR Random Glucose Calcium Total Bilirubin AST ALT Alkaline Phosphatase C-Reactive Protein Total Protein Albumin Vitamin B12 Active Medications Generic Name Dose Route Start Last Admin Trade Name Freq PRN Reason Stop Dose Admin Albuterol Sulfate 2 puff 05/23/17 12:26 Ventolin Hfa Inhaler - IH Q4H PRN SHORT OF BREATH/WHEEZING Artificial Tears 2 drop 05/23/17 14:00 Artificial Tears OU Q4HWA RUBIA Furosemide 40 mg 05/24/17 10:00 Lasix - PO Q48H RUBIA Ampicillin Sodium/Sulbactam 100 mls @ 200 mls/hr 05/23/17 15:00 Sodium 1.5 gm/ Sodium Chloride IVPB Q6H-IV RUBIA Lorazepam 2 mg 05/23/17 13:30 Ativan Injection - IVPUSH 05/23/17 13:31 PRN ONE Metoprolol Tartrate 25 mg 05/23/17 22:00 Lopressor - PO BID RUBIA Pantoprazole Sodium 40 mg 05/23/17 22:00 Protonix - PO BID RUBIA Polyethylene Glycol 17 gm 05/23/17 22:00 Miralax (For Daily Use) - PO BID RUBIA Prednisone 60 mg 05/24/17 10:00 Deltasone - PO DAILY RUBIA Spironolactone 25 mg 05/23/17 22:00 Aldactone - PO BID RUBIA Valacyclovir HCl 1,000 mg 05/23/17 14:00 Valtrex - PO TID RUBIA IMAGING: Brain MRI w/o Contrast (05/21/17) IMPRESSION: 1. No evidence of acute or subacute infarction. No mass effect, midline shift or hydrocephalus. 2. T1 hypointense bone marrow signal as described above, suspicious for infiltrative marrow replacing process. Please correlate clinically. 3. Focal 3 mm nodularity in the superior aspect of the RIGHT internal auditory canal is not well evaluated without IV contrast. Cannot exclude leptomeningeal disease or right IAC mass, such as a schwannoma. Suggest further evaluation with contrast-enhanced MRI. If there is clinical suspicion for leptomeningeal disease, then please correlate with CSF analysis. 4. Generalized, age appropriate volume loss with mild chronic microvascular ischemic changes. 5. Punctate foci of susceptibility as described are likely hemosiderin from prior petechial microhemorrhages. This is statistically likely to be due to hypertension, although amyloid angiopathy is not excluded. Carotid doppers (05/21/17): Moderate calcified atheromatous plaque in the right carotid bulb with elevated peak systolic velocity in the proximal right ICA is suggestive of 50-69% stenosis. 2D ECHO (05/23/17): pending ASSESSMENT/PLAN: 87 yom with Afib not on coumadin, CAD with 1 vessel disease with medical management, ASD s/p open repair, Afib with Cryomaze procedure, Chronic systolic/ Diastolic HF, COPD on 2L home oxygen, HTN, GI bleed, pancytopenia (?neg bone marrow biopsy), admitted with right facial droop unclear onset, also right ear pain/discharge, dizziness and unsteady gait. 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 Dispo: We will continue to follow the patient. Thank you for this consultative opportunity. Visit type - Emergency Visit Emergency Visit: Yes ED Registration Date: 05/21/17 Care time: The patient presented to the Emergency Department on the above date and was hospitalized for further evaluation of their emergent condition. - New Patient This patient is new to me today: Yes Date on this admission: 05/23/17 - Critical Care Critical Care patient: No
[2017-05-23] MEDS: valACYclovir HCL 500 MG TABLET (FP) PO SCH (14:38)
--- NOTE | 2017-05-23 20:05 | PN ---
Teaching Attending Note Name of Resident: Marco Antonio Flower ATTENDING PHYSICIAN STATEMENT I saw and evaluated the patient. I reviewed the resident's note and discussed the case with the resident. I agree with the resident's findings and plan as documented. PULMONARY IMP LIKELY BELLS PALSY COPD ON HOME O2 ASHD PULMONARY HTN LV DIASTOLIC DYSFUNCTION RV DYSFUNCTION AFIB ASD S/P REPAIR H/O GI BLEEDS B-CELL LYMPHOMA PANCYTOPENIA CKD PLAN MRI PER NEUROLOGY SUPPLEMENTAL O2 INHALED BRONCHODILATORS MONITOR CBC,PLT CT,LYTES DIURETICS,STEROIDS ANTIBIOTICS DR ANAND Problem List - Problems (1) Pulmonary HTN Code(s): I27.20 - PULMONARY HYPERTENSION, UNSPECIFIED (2) Dizziness Code(s): R42 - DIZZINESS AND GIDDINESS (3) Facial droop Code(s): R29.810 - FACIAL WEAKNESS (4) Anemia Code(s): D64.9 - ANEMIA, UNSPECIFIED Qualifiers: Anemia type: iron deficiency (5) COPD (chronic obstructive pulmonary disease) Code(s): J44.9 - CHRONIC OBSTRUCTIVE PULMONARY DISEASE, UNSPECIFIED Qualifiers: COPD type: unspecified COPD Qualified Code(s): J44.9 - Chronic obstructive pulmonary disease, unspecified (6) Atrial fibrillation Code(s): I48.91 - UNSPECIFIED ATRIAL FIBRILLATION Qualifiers: Atrial fibrillation type: persistent Qualified Code(s): I48.1 - Persistent atrial fibrillation (7) CAD (coronary artery disease) Code(s): I25.10 - ATHSCL HEART DISEASE OF [place] CORONARY ARTERY W/O ANG PCTRS Qualifiers: Coronary Disease-Associated Artery/Lesion type: [place] artery [place] vs. transplanted heart: [place] heart Associated angina: without angina Qualified Code(s): I25.10 - Atherosclerotic heart disease of [place] coronary artery without angina pectoris (8) H/O atrial septal defect repair Code(s): Z98.89 - OTHER SPECIFIED POSTPROCEDURAL STATES * DO NOT USE *; Z87.74 - PERSONAL HISTORY OF CONGENITAL MALFORM OF HEART AND CIRC SYS (9) Hypertension Code(s): I10 - ESSENTIAL (PRIMARY) HYPERTENSION Qualifiers: Hypertension type: essential hypertension Qualified Code(s): I10 - Essential (primary) hypertension (10) Pancytopenia Code(s): D61.818 - OTHER PANCYTOPENIA (11) B-cell lymphoma Code(s): C85.10 - UNSPECIFIED B-CELL LYMPHOMA, UNSPECIFIED SITE
--- NOTE | 2017-05-23 20:23 | PN ---
Progress Note (short form) - Note Progress Note: PAtient seen and examined Denies any complaints Last Vital Signs Temp Pulse Resp BP Pulse Ox 97.5 F L 85 18 115/62 100 05/23/17 16:30 05/23/17 16:30 05/23/17 16:30 05/23/17 16:30 05/23/17 12:22 Cor: RSR, No murmurs, No gallops Lungs: Clear to P&A Abd: Soft, Normal bowel sounds, No organomegaly Ext:No significant edema Abnormal Lab Results 05/23/17 05/23/17 05/23/17 05:27 05:27 05:27 WBC 1.1 L* D RBC 3.50 L Hgb 10.2 L Hct 31.4 L RDW 16.7 H Plt Count 95 L ESR 125 H Carbon Dioxide 33 H Anion Gap 5 L BUN 23 H D Creatinine 1.4 H Random Glucose 134 H D Calcium 8.4 L AST 12 L ALT 10 L Albumin 2.6 L Home Medication List Medication Instructions Recorded Confirmed Type Losartan Potassium [Cozaar] 25 mg PO DAILY 10/18/16 05/21/17 History Furosemide [Lasix -] 40 mg PO Q48H 05/21/17 05/21/17 History Prednisone [Deltasone -] 20 mg PO DAILY 05/21/17 05/21/17 History Active Medications Generic Name Dose Route Start Last Admin Trade Name Freq PRN Reason Stop Dose Admin Albuterol Sulfate 2 puff 05/23/17 12:26 Ventolin Hfa Inhaler - IH Q4H PRN SHORT OF BREATH/WHEEZING Artificial Tears 2 drop 05/23/17 14:00 05/23/17 17:30 Artificial Tears OU 2 drop Q4HWA RUBIA Administration Furosemide 40 mg 05/24/17 10:00 Lasix - PO Q48H RUBIA Ampicillin Sodium/Sulbactam 100 mls @ 200 mls/hr 05/23/17 15:00 05/23/17 14: 37 Sodium 1.5 gm/ Sodium Chloride IVPB 200 mls/hr Q6H-IV RUBIA Administration Metoprolol Tartrate 25 mg 05/23/17 22:00 Lopressor - PO BID RUBIA Pantoprazole Sodium 40 mg 05/23/17 22:00 Protonix - PO BID RUBIA Polyethylene Glycol 17 gm 05/23/17 22:00 Miralax (For Daily Use) - PO BID COUNTS INCLUDE 234 BEDS AT THE [facility] Prednisone 60 mg 05/24/17 10:00 Deltasone - PO DAILY RUBIA Spironolactone 25 mg 05/23/17 22:00 Aldactone - PO BID RUBIA Valacyclovir HCl 1,000 mg 05/23/17 14:00 05/23/17 14:38 Valtrex - PO 1,000 mg TID RUBIA Administration A/P 87 yo man with significant PMH of CHF, CAD, Afib (off AC), COPD, pancytopenia here with R. VIII nerve palsys consistent with otitis emdia complication vs Millen palsy. 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 He also has involvement of the BM and splenomegaly which are likely to contribute to this. 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 B core +
[2017-05-23] MEDS ORDERED: LORazepam 2 MG/ML SDV VIAL IVPUSH ONE (20:30)
[2017-05-24] MEDS: AMPICILLIN NA/SULBACTAM NA 1.5 GM in SODIUM CHLORIDE 100 ML IVPB SCH ×5 (01:09→21:28)
[2017-05-24] MEDS: ARTIFICIAL TEARS (POLYVINYL ALCOHOL 1.4%) OPTH DROPS OU SCH ×6 (03:54→21:29)
[2017-05-24] MEDS: METOPROLOL TARTRATE 25 MG TABLET (FP) PO SCH ×3 (03:55→21:29)
[2017-05-24] MEDS: POLYETHYLENE GLYCOL 3350 119 GM BTL PO SCH ×3 (03:55→21:53)
[2017-05-24] MEDS: SPIRONOLACTONE 25 MG TABLET (FP) PO SCH ×3 (03:55→21:28)
[2017-05-24] MEDS: valACYclovir HCL 500 MG TABLET (FP) PO SCH ×4 (03:56→21:29)
[2017-05-24] MEDS: PANTOPRAZOLE 40 MG TABLET (FP) PO SCH ×3 (03:56→21:29)
[2017-05-24] MEDS ORDERED: predniSONE 20 MG TABLET (UD) PO SCH (10:00)
[2017-05-24] MEDS ORDERED: FUROSEMIDE 40 MG TABLET (FP) PO SCH (10:00)
[2017-05-24] MEDS ORDERED: PT OWN MED DRAWER 7, Y5N ONE ×7 (11:02→21:07)
[2017-05-24 12:27] LABS: MCH 29.1 pg (25.7-33.7); MCHC 31.8 g/dl (32.0-35.9); MEAN CELL VOLUME 91.6 fl (80-96); MEAN PLT VOLUME 7.3 fl (7.5-11.1); PLATELET COUNT 107 K/MM3 (134-434); RDW 16.2 % (11.9-15.9)
[2017-05-24 13:04] LABS: FREE T4 1.08 ng/dl (0.76-1.16)
[2017-05-24 13:13] LABS: ALBUMIN 2.7 g/dl (3.4-5.0); ALK PHOS 65 U/L (45-117); ANION GAP 5 (8-16); BILIRUBIN,TOTAL 0.5 mg/dL (0.2-1.0); CALCIUM 8.5 mg/dL (8.5-10.1); CO2 33 mmol/L (21-32); CREATININE 1.3 mg/dL (0.7-1.3); GLUCOSE,RANDOM 108 mg/dL (74-106); SGOT/AST 9 U/L (15-37); SGPT/ALT 11 U/L (12-78); TOT PROT 7.9 g/dl (6.4-8.2)
--- NOTE | 2017-05-24 13:14 | PN ---
Physical Exam: Progress note Pulmonary resident SUBJECTIVE: Patient seen and examined at bed side. He is doing much better , breathing is better. Denies any fever, chills, N/V/D//C. walk with PT , RW and he was unstable enough to walk by him self. OBJECTIVE: Vital Signs Period Temp Pulse Resp BP Sys/Brian Pulse Ox Last 24 Hr 97.5 F-97.6 F 75-95 18-20 115-129/61-65 98 GENERAL: aaox3, nad, R facial paralysis HEAD: Normal with no signs of trauma. HEENT: EOMI, PERRLA NECK: no cervical LAD, no JVD LUNGS: CTAB, no wheezing or accessory muscle use HEART: rrr, normal S1/S2, no murmur, rub or gallop ABDOMEN: soft, ntnd UPPER EXTREMITIES: 2+ pulses, warm, well-perfused. No cyanosis. No clubbing. No peripheral edema. LOWER EXTREMITIES: b/l venous stasis, wwp, no calf tenderness, no peripheral edema NEUROLOGICAL: R CNVII weakness Laboratory Results - last 24 hr 05/23/17 05/24/17 05/24/17 05:27 12:10 12:19 WBC 2.0 L D RBC 3.46 L Hgb 10.1 L Hct 31.7 L MCV 91.6 MCH 29.1 MCHC 31.8 L RDW 16.2 H Plt Count 107 L MPV 7.3 L Neutrophils % No Result Required. Lymphocytes % No Result Required. Platelet Comment No Result Required. Free T4 1.08 Active Medications Generic Name Dose Route Start Last Admin Trade Name Freq PRN Reason Stop Dose Admin Albuterol Sulfate 2 puff 05/23/17 12:26 Ventolin Hfa Inhaler - IH Q4H PRN SHORT OF BREATH/WHEEZING Artificial Tears 2 drop 05/23/17 14:00 05/24/17 11:41 Artificial Tears OU 2 drop Q4HWA RUBIA Administration Furosemide 40 mg 05/24/17 10:00 05/24/17 11:40 Lasix - PO 40 mg Q48H RUBIA Administration Ampicillin Sodium/Sulbactam 100 mls @ 200 mls/hr 05/23/17 15:00 05/24/17 12: 41 Sodium 1.5 gm/ Sodium Chloride IVPB 200 mls/hr Q6H-IV RUBIA Administration Metoprolol Tartrate 25 mg 05/23/17 22:00 05/24/17 11:40 Lopressor - PO 25 mg BID RUBIA Administration Pantoprazole Sodium 40 mg 05/23/17 22:00 05/24/17 11:39 Protonix - PO 40 mg BID RUBIA Administration Polyethylene Glycol 17 gm 05/23/17 22:00 05/24/17 11:41 Miralax (For Daily Use) - PO Not Given BID RUBIA Prednisone 60 mg 05/24/17 10:00 05/24/17 11:39 Deltasone - PO 60 mg DAILY RUBIA Administration Spironolactone 25 mg 05/23/17 22:00 05/24/17 11:40 Aldactone - PO 25 mg BID RUBIA Administration Valacyclovir HCl 1,000 mg 05/23/17 14:00 05/24/17 06:45 Valtrex - PO 1,000 mg TID RUBIA Administration CBC, BMP 05/24/17 12:19 IMAGING: Brain MRI w/o Contrast (05/21/17) 1. No evidence of acute or subacute infarction. No mass effect, midline shift or hydrocephalus. 2. T1 hypointense bone marrow signal as described above, suspicious for infiltrative marrow replacing process. Please correlate clinically. 3. Focal 3 mm nodularity in the superior aspect of the RIGHT internal auditory canal is not well evaluated without IV contrast. Cannot exclude leptomeningeal disease or right IAC mass, such as a schwannoma. Suggest further evaluation with contrast-enhanced MRI. If there is clinical suspicion for leptomeningeal disease, then please correlate with CSF analysis. 4. Generalized, age appropriate volume loss with mild chronic microvascular ischemic changes. 5. Punctate foci of susceptibility as described are likely hemosiderin from prior petechial microhemorrhages. This is statistically likely to be due to hypertension, although amyloid angiopathy is not excluded. Carotid doppers (05/21/17): Moderate calcified atheromatous plaque in the right carotid bulb with elevated peak systolic velocity in the proximal right ICA is suggestive of 50-69% stenosis. 2D ECHO (05/23/17): reviewed Brain MRI/MRA (05/23/2017) negative ASSESSMENT/PLAN: 87 yom with Afib not on coumadin, CAD with 1 vessel disease with medical management, ASD s/p open repair, Afib with Cryomaze procedure, Chronic systolic/ Diastolic HF, COPD on 2L home oxygen, HTN, GI bleed, pancytopenia (?neg bone marrow biopsy), admitted with right facial droop unclear onset, also right ear pain/discharge, dizziness and unsteady gait. 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 Visit type - Emergency Visit Emergency Visit: Yes ED Registration Date: 05/21/17 Care time: The patient presented to the Emergency Department on the above date and was hospitalized for further evaluation of their emergent condition. - New Patient This patient is new to me today: No - Critical Care Critical Care patient: No - Discharge Referral Referred to [facility] Med P.C.: No
--- NOTE | 2017-05-24 13:14 | PN ---
Progress Note (short form) - Note Progress Note: Patient seen and examined having his lunch, saying he wants to go home.. Cor: RSR, No murmurs, No gallops Lungs: Clear to P&A Abd: Soft, Normal bowel sounds, No organomegaly Ext:No significant edema Last Vital Signs Temp Pulse Resp BP Pulse Ox 97.6 F 75 18 117/61 98 05/24/17 08:00 05/24/17 08:00 05/24/17 08:00 05/24/17 08:00 05/23/17 21:00 Current Medications Generic Name Dose Route Start Last Admin Trade Name Freq PRN Reason Stop Dose Admin Albuterol Sulfate 2 puff 05/23/17 12:26 Ventolin Hfa Inhaler - IH Q4H PRN SHORT OF BREATH/WHEEZING Artificial Tears 2 drop 05/23/17 14:00 05/24/17 11:41 Artificial Tears OU 2 drop Q4HWA RUBIA Administration Furosemide 40 mg 05/24/17 10:00 05/24/17 11:40 Lasix - PO 40 mg Q48H RUBIA Administration Ampicillin Sodium/Sulbactam 100 mls @ 200 mls/hr 05/23/17 15:00 05/24/17 12: 41 Sodium 1.5 gm/ Sodium Chloride IVPB 200 mls/hr Q6H-IV RUBIA Administration Metoprolol Tartrate 25 mg 05/23/17 22:00 05/24/17 11:40 Lopressor - PO 25 mg BID RUBIA Administration Pantoprazole Sodium 40 mg 05/23/17 22:00 05/24/17 11:39 Protonix - PO 40 mg BID RUBIA Administration Polyethylene Glycol 17 gm 05/23/17 22:00 05/24/17 11:41 Miralax (For Daily Use) - PO Not Given BID RUBIA Prednisone 60 mg 05/24/17 10:00 05/24/17 11:39 Deltasone - PO 60 mg DAILY RUBIA Administration Spironolactone 25 mg 05/23/17 22:00 05/24/17 11:40 Aldactone - PO 25 mg BID RUBIA Administration Valacyclovir HCl 1,000 mg 05/23/17 14:00 05/24/17 06:45 Valtrex - PO 1,000 mg TID RUBIA Administration Assessment/Plan: 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 B core + ). PT eval will follow. need f.u with upon dc
[2017-05-24 13:27] LABS: ALBUMIN 2.7 g/dl (3.4-5.0); ALK PHOS 66 U/L (45-117); ANION GAP 6 (8-16); BILIRUBIN,TOTAL 0.7 mg/dL (0.2-1.0); CALCIUM 8.4 mg/dL (8.5-10.1); CO2 32 mmol/L (21-32); CREATININE 1.3 mg/dL (0.7-1.3); GLUCOSE,RANDOM 106 mg/dL (74-106); LDH 106 U/L (87-241); SGOT/AST 10 U/L (15-37); SGPT/ALT 10 U/L (12-78); THYROID STIMULATING HORMONE 2.55 uIU/ml (0.358-3.74); TOT PROT 7.8 g/dl (6.4-8.2); URIC ACID 6.8 mg/dL (2.6-7.2)
--- NOTE | 2017-05-24 14:20 | PN ---
Teaching Attending Note Name of Resident: Marco Antonio Flower ATTENDING PHYSICIAN STATEMENT I saw and evaluated the patient. I reviewed the resident's note and discussed the case with the resident. I agree with the resident's findings and plan as documented. SUBJECTIVE: PULMONARY NO DISTRESS,-SOB,-CP. + UNSTEADY GAIT IMP LIKELY BELLS PALSY COPD ON HOME O2 ASHD PULMONARY HTN LV DIASTOLIC DYSFUNCTION RV DYSFUNCTION AFIB ASD S/P REPAIR H/O GI BLEEDS B-CELL LYMPHOMA PANCYTOPENIA CKD PLAN MRI PER NEUROLOGY SUPPLEMENTAL O2 INHALED BRONCHODILATORS MONITOR CBC,PLT CT,LYTES DIURETICS,STEROIDS ANTIBIOTICS DR ANAND Problem List - Problems (1) Pulmonary HTN Code(s): I27.20 - PULMONARY HYPERTENSION, UNSPECIFIED (2) Dizziness Code(s): R42 - DIZZINESS AND GIDDINESS (3) Facial droop Code(s): R29.810 - FACIAL WEAKNESS (4) Anemia Code(s): D64.9 - ANEMIA, UNSPECIFIED Qualifiers: Anemia type: iron deficiency (5) COPD (chronic obstructive pulmonary disease) Code(s): J44.9 - CHRONIC OBSTRUCTIVE PULMONARY DISEASE, UNSPECIFIED Qualifiers: COPD type: unspecified COPD Qualified Code(s): J44.9 - Chronic obstructive pulmonary disease, unspecified (6) Atrial fibrillation Code(s): I48.91 - UNSPECIFIED ATRIAL FIBRILLATION Qualifiers: Atrial fibrillation type: persistent Qualified Code(s): I48.1 - Persistent atrial fibrillation (7) CAD (coronary artery disease) Code(s): I25.10 - ATHSCL HEART DISEASE OF [place] CORONARY ARTERY W/O ANG PCTRS Qualifiers: Coronary Disease-Associated Artery/Lesion type: [place] artery [place] vs. transplanted heart: [place] heart Associated angina: without angina Qualified Code(s): I25.10 - Atherosclerotic heart disease of [place] coronary artery without angina pectoris (8) H/O atrial septal defect repair Code(s): Z98.89 - OTHER SPECIFIED POSTPROCEDURAL STATES * DO NOT USE *; Z87.74 - PERSONAL HISTORY OF CONGENITAL MALFORM OF HEART AND CIRC SYS (9) Hypertension Code(s): I10 - ESSENTIAL (PRIMARY) HYPERTENSION Qualifiers: Hypertension type: essential hypertension Qualified Code(s): I10 - Essential (primary) hypertension (10) Pancytopenia Code(s): D61.818 - OTHER PANCYTOPENIA (11) B-cell lymphoma Code(s): C85.10 - UNSPECIFIED B-CELL LYMPHOMA, UNSPECIFIED SITE ASSESSMENT AND PLAN: Problem List - Problems (1) Pulmonary HTN Code(s): I27.20 - PULMONARY HYPERTENSION, UNSPECIFIED (2) Dizziness Code(s): R42 - DIZZINESS AND GIDDINESS (3) Facial droop Code(s): R29.810 - FACIAL WEAKNESS (4) Anemia Code(s): D64.9 - ANEMIA, UNSPECIFIED Qualifiers: Anemia type: iron deficiency (5) COPD (chronic obstructive pulmonary disease) Code(s): J44.9 - CHRONIC OBSTRUCTIVE PULMONARY DISEASE, UNSPECIFIED Qualifiers: COPD type: unspecified COPD Qualified Code(s): J44.9 - Chronic obstructive pulmonary disease, unspecified (6) Atrial fibrillation Code(s): I48.91 - UNSPECIFIED ATRIAL FIBRILLATION Qualifiers: Atrial fibrillation type: persistent Qualified Code(s): I48.1 - Persistent atrial fibrillation (7) CAD (coronary artery disease) Code(s): I25.10 - ATHSCL HEART DISEASE OF [place] CORONARY ARTERY W/O ANG PCTRS Qualifiers: Coronary Disease-Associated Artery/Lesion type: [place] artery [place] vs. transplanted heart: [place] heart Associated angina: without angina Qualified Code(s): I25.10 - Atherosclerotic heart disease of [place] coronary artery without angina pectoris (8) H/O atrial septal defect repair Code(s): Z98.89 - OTHER SPECIFIED POSTPROCEDURAL STATES * DO NOT USE *; Z87.74 - PERSONAL HISTORY OF CONGENITAL MALFORM OF HEART AND CIRC SYS (9) Hypertension Code(s): I10 - ESSENTIAL (PRIMARY) HYPERTENSION Qualifiers: Hypertension type: essential hypertension Qualified Code(s): I10 - Essential (primary) hypertension (10) Pancytopenia Code(s): D61.818 - OTHER PANCYTOPENIA (11) B-cell lymphoma Code(s): C85.10 - UNSPECIFIED B-CELL LYMPHOMA, UNSPECIFIED SITE
--- NOTE | 2017-05-24 14:43 | PN ---
Progress Note (short form) - Note Progress Note: Chief Complaint: Events noted, notes reviewed, right sided facial weakness persists, denies any chest pain but reports persistent dyspnea History of Present Illness: Seen and examined on telemetry. Events noted, notes reviewed, right sided facial weakness persists, denies any chest pain but reports persistent dyspnea - Current Medication List Current Medications Albuterol Sulfate (Ventolin Hfa Inhaler -) 2 puff IH Q4H PRN PRN Reason: SHORT OF BREATH/WHEEZING Artificial Tears (Artificial Tears) 2 drop OU Q4HWA [facility] Last Admin: 05/24/17 11:41 Dose: 2 drop Furosemide (Lasix -) 40 mg PO Q48H [facility] Last Admin: 05/24/17 11:40 Dose: 40 mg Ampicillin Sodium/Sulbactam (Sodium 1.5 gm/ Sodium Chloride) 100 mls @ 200 mls/ hr IVPB Q6H-IV [facility] Last Admin: 05/24/17 12:41 Dose: 200 mls/hr Metoprolol Tartrate (Lopressor -) 25 mg PO BID [facility] Last Admin: 05/24/17 11:40 Dose: 25 mg Pantoprazole Sodium (Protonix -) 40 mg PO BID [facility] Last Admin: 05/24/17 11:39 Dose: 40 mg Polyethylene Glycol (Miralax (For Daily Use) -) 17 gm PO BID [facility] Last Admin: 05/24/17 11:41 Dose: Not Given Prednisone (Deltasone -) 60 mg PO DAILY [facility] Last Admin: 05/24/17 11:39 Dose: 60 mg Spironolactone (Aldactone -) 25 mg PO BID [facility] Last Admin: 05/24/17 11:40 Dose: 25 mg Valacyclovir HCl (Valtrex -) 1,000 mg PO TID [facility] Last Admin: 05/24/17 06:45 Dose: 1,000 mg Review of Systems Constitutional: denies Chills or Fever Respiratory: reports: Dyspnea Cardiovascular: As noted above Gastrointestinal: denies Nausea, Vomiting, Diarrhea or Constipation or Abdominal Discomfort Genitourinary: No Symptoms Reported Musculoskeletal: No Symptoms Reported - Objective Vital Signs: Last Vital Signs Temp Pulse Resp BP Pulse Ox 97.6 F 75 18 117/61 98 05/24/17 08:00 05/24/17 08:00 05/24/17 08:00 05/24/17 08:00 05/23/17 21:00 Intake & Output 05/21/17 05/22/17 05/23/17 05/24/17 23:59 23:59 23:59 23:59 Intake Total 130 780 580 500 Output Total 200 1300 500 250 Balance -70 -520 80 250 Weight 174 lb Neck: Supple Negative JVD No Bruit Cardiovascular: S1 S2 Irregularly Irregular grade 2/6 SM Respiratory: Diminished Breath Sound at the Bases Gastrointestinal: Soft Benign Normal Bowel Sounds Ext: Trace to 1+ Edema Bilaterally Labs: CBC, BMP 05/24/17 12:19 Hepatic Panel Total Bilirubin 0.7 mg/dL (0.2-1.0) D 05/24/17 12:19 AST 10 U/L (15-37) L 05/24/17 12:19 ALT 10 U/L (12-78) L 05/24/17 12:19 Alkaline Phosphatase 66 U/L (45-117) 05/24/17 12:19 Albumin 2.7 g/dl (3.4-5.0) L 05/24/17 12:19 Assessment/Plan ASSESSMENT: 1. 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 Right otitis media 3. Benign positional vertigo 4. Diastolic LV dysfunction with chronic class I-II NYHA association LV failure , compensated/euvolemic 5. 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 Persistent atrial fibrillation post Cryo-Maze and NATE ligation, [id number] score of 5, currently off of A/C 7. Moderate to severe degree of pulmonary HTN 8. HTN 9. Hypercholesterolemia 10. ASD post surgical repair 11. History of hypercapneic respiratory failure, underlying COPD 12. Wade-cytopenia, low grade Lymphoma 13. History of CKD PLAN: 1. Continue Lasix and Aldactone with caution and close monitoring of renal function 2. Continue Lopressor, hemodynamics permitting 3. As outlined in prior notes recommend withholding A/C therapy indefinitely recognizing elevated stroke risk ([id number] score of 5) considering his history of recurrent GI bleed, patient not a candidate for Watchman device insertion, history of NATE ligation Nova Jara MD
--- NOTE | 2017-05-24 16:01 | PN ---
Teaching Attending Note Name of Resident: Ryanne Lynch ATTENDING PHYSICIAN STATEMENT I saw and evaluated the patient. I reviewed the resident's note and discussed the case with the resident. I agree with the resident's findings and plan as documented. SUBJECTIVE:c/o fatigue as he was unable to sleep last night. states he has ear pain has improved. denies CP, SOB, fever, chills, N/V/C/D OBJECTIVE: Last Vital Signs Temp Pulse Resp BP Pulse Ox 97.6 F 75 18 117/61 98 05/24/17 08:00 05/24/17 08:00 05/24/17 08:00 05/24/17 08:00 05/23/17 21:00 General NAD HEENT STERLING, EOMI, +serous drainage with yellow crusting from R ear, swollen auricle. CV S1 S2 RRR no murmur/rub/gallop Lungs CTA B/L no wheezing/rales/rhonchi Neuro R facial droop. sensation grossly intact ASSESSMENT AND PLAN: 87yo M with PMH afib not on coumadin, CAD, ASD, systolic/diastolic CHF, COPD on home O2 and pancytopenia 2/2 lymphoma presented with R facial droop 1. R facial droop due to [place] Palsy 2/2 OM vs HSV- clinically improved per pt. on prednisone taper, augmentin and valtrex for 1 week. will need to f/u with ENT as outpatient. MRI with contrast is negative for mass which was initially seen on MRI without contrast. neuro and ENT on board 2. Pancytopenia- due to low grade lymphoma. may be candidate for rutxan weekly. onc follow up outpatient 3. 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 will need periodic monitoring as outpatient 4. COPD on home O2 5. afib not on coumadin 6. DNR/DNI. d/c home in the AM. verbalized understanding and agreement by patient
[2017-05-24 17:05] LABS: PLATELET COMMENTS NO CLUMPING NOTED; PLATELET ESTIMATE DECREASED; TOTAL CELLS COUNTED 100
--- NOTE | 2017-05-24 17:47 | PN ---
Physical Exam: SUBJECTIVE: Patient seen and examined. R ear pain improved, no further drainage. Still has dizziness when ambulates to bathroom and with PT. OBJECTIVE: Vital Signs Period Temp Pulse Resp BP Sys/Brian Pulse Ox Last 24 Hr 97.6 F-98.4 F 75-95 18-20 111-129/58-68 98 GENERAL: aaox3, nad EYES: sclera anicteric, conjunctiva clear ENT: oropharynx clear without exudates, moist mucous membranes LUNGS: CTAB, no wheezing HEART: rrr, normal s1/s2 ABDOMEN: Soft, ntnd, no guarding or rebound tenderness LOWER EXT: b/l venous stasis, wwp, no calf tenderness, no peripheral edema NEUROLOGICAL: unchanged: R CNVII weakness (mild decrease in R forehead wrinkle , eyelid closure, and nasolabial flatness); facial sensation intact bilaterally and in all 4 extremities, muscle strength 5/5 all 4 extremities CBC, BMP 05/24/17 12:19 IMAGING: Brain MRI w/o Contrast (05/21/17) IMPRESSION: 1. No evidence of acute or subacute infarction. No mass effect, midline shift or hydrocephalus. 2. T1 hypointense bone marrow signal as described above, suspicious for infiltrative marrow replacing process. Please correlate clinically. 3. Focal 3 mm nodularity in the superior aspect of the RIGHT internal auditory canal is not well evaluated without IV contrast. Cannot exclude leptomeningeal disease or right IAC mass, such as a schwannoma. Suggest further evaluation with contrast-enhanced MRI. If there is clinical suspicion for leptomeningeal disease, then please correlate with CSF analysis. 4. Generalized, age appropriate volume loss with mild chronic microvascular ischemic changes. 5. Punctate foci of susceptibility as described are likely hemosiderin from prior petechial microhemorrhages. This is statistically likely to be due to hypertension, although amyloid angiopathy is not excluded. Carotid doppers (05/21/17): Moderate calcified atheromatous plaque in the right carotid bulb with elevated peak systolic velocity in the proximal right ICA is suggestive of 50-69% stenosis. 2D ECHO (05/23/17): pending Active Medications Albuterol Sulfate (Ventolin Hfa Inhaler -) 2 puff IH Q4H PRN PRN Reason: SHORT OF BREATH/WHEEZING Artificial Tears (Artificial Tears) 2 drop OU Q4HWA [facility] Last Admin: 05/24/17 15:52 Dose: 2 drop Furosemide (Lasix -) 40 mg PO Q48H [facility] Last Admin: 05/24/17 11:40 Dose: 40 mg Ampicillin Sodium/Sulbactam (Sodium 1.5 gm/ Sodium Chloride) 100 mls @ 200 mls/ hr IVPB Q6H-IV [facility] Last Admin: 05/24/17 15:52 Dose: 200 mls/hr Metoprolol Tartrate (Lopressor -) 25 mg PO BID [facility] Last Admin: 05/24/17 11:40 Dose: 25 mg Pantoprazole Sodium (Protonix -) 40 mg PO BID [facility] Last Admin: 05/24/17 11:39 Dose: 40 mg Polyethylene Glycol (Miralax (For Daily Use) -) 17 gm PO BID [facility] Last Admin: 05/24/17 11:41 Dose: Not Given Prednisone (Deltasone -) 60 mg PO DAILY [facility] Last Admin: 05/24/17 11:39 Dose: 60 mg Spironolactone (Aldactone -) 25 mg PO BID [facility] Last Admin: 05/24/17 11:40 Dose: 25 mg Valacyclovir HCl (Valtrex -) 1,000 mg PO TID [facility] Last Admin: 05/24/17 15:52 Dose: 1,000 mg ASSESSMENT/PLAN: 87yo man with PMH of CHF, CAD, Afib (off AC), COPD, pancytopenia (prior bone low grade lymphoma) who presents with acute R facial droop with R ear pain/ discharge, and dizziness for the past few days likely due to Otitis media vs HSV Cardenas's palsy. No focal deficits are seen on exam. Brain MRI w/ contrast revealed no e/o leptomeningeal disease. 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) for 1 week with prednisone taper (60mg x2d, 40mg x2d, 20mg x2d, 10mgx 2) -Avoid water in R ear, BRP with assist #R 3mm nodule superior aspect R internal auditory canal -Brain MRI r/o LM #pancytopenia -Heme consulted, considering rituxan weekly x4 if worsens #HTN -Continue home losartan #CHF -Continue home metoprolol, lasix, spironolactone #COPD -Oxygen therapy to maintain SpaO2>90% -Continue home Albulterol inhaler q4h PRN #GERD -Continue home Prontonix #FEN/PPx -Hold IVFs -lytes wnl -Regular diet, neutropenic precautions #PT evaluation - recommend walker #PPX -DVT SCDs -GI - home protonix bid #DISPO: discharge home tomorrow. CM/SW arranging VNS DNR/DNI d/w Dr. Genet Lynch MD PGY-1 Visit type - Emergency Visit Emergency Visit: No - New Patient This patient is new to me today: No - Critical Care Critical Care patient: No
[2017-05-25] MEDS: AMPICILLIN NA/SULBACTAM NA 1.5 GM in SODIUM CHLORIDE 100 ML IVPB SCH (03:09)
[2017-05-25] MEDS ORDERED: PT OWN MED DRAWER 7, Y5N ONE ×4 (06:56→10:01)
[2017-05-25] MEDS: valACYclovir HCL 500 MG TABLET (FP) PO SCH (06:59)
[2017-05-25] MEDS: ARTIFICIAL TEARS (POLYVINYL ALCOHOL 1.4%) OPTH DROPS OU SCH ×2 (06:59→10:06)
--- NOTE | 2017-05-25 07:48 | DS ---
Physical Exam: SUBJECTIVE: Patient seen and examined. C/o R ear "itchy", no other complaints. No dizziness at rest, continues to have some unsteadiness when ambulating, requiring olling walker assistance. OBJECTIVE: Vital Signs Period Temp Pulse Resp BP Sys/Brian Pulse Ox Last 24 Hr 97.4 F-98.4 F 75-83 18-20 111-129/58-69 98-98 PHYSICAL EXAM GENERAL: aaox3, nad EYES: sclera anicteric, conjunctiva clear ENT: oropharynx clear without exudates, moist mucous membranes LUNGS: CTAB, no wheezing HEART: rrr, normal s1/s2 ABDOMEN: Soft, ntnd, no guarding or rebound tenderness LOWER EXT: b/l venous stasis, wwp, no calf tenderness, no peripheral edema NEUROLOGICAL: unchanged: R CNVII weakness (mild decrease in R forehead wrinkle , eyelid closure, and nasolabial flatness); facial sensation intact bilaterally and in all 4 extremities, muscle strength 5/5 all 4 extremities LABS CBC, BMP 05/24/17 12:19 Hepatic Panel Total Bilirubin 0.7 mg/dL (0.2-1.0) D 05/24/17 12:19 AST 10 U/L (15-37) L 05/24/17 12:19 ALT 10 U/L (12-78) L 05/24/17 12:19 Alkaline Phosphatase 66 U/L (45-117) 05/24/17 12:19 Albumin 2.7 g/dl (3.4-5.0) L 05/24/17 12:19 IMAGING: CXR 05/21/17: There is cardiomegaly with enlarged pulmonary arteries and cephalization. No focal consolidation. Patient is status post sternotomy. The visualized osseous structures are unremarkable. IMPRESSION: Cardiomegaly with dilated pulmonary arteries suggestive of chronic pulmonary hypertension, grossly unchanged. No focal consolidation. Head CT non-con 05/21/17: Technique: Noncontrast head CT with coronal and sagittal reformations. Comparison: None. Findings: There is no acute intracranial hemorrhage or focal extra-axial collection. There is no compelling evidence of acute, territorial transcortical infarct at this time. MRI is much more sensitive in detecting acute infarction. There is generalized, age appropriate volume loss with secondary prominence of the CSF spaces. There is no mass effect, midline shift or hydrocephalus. The calvarium is intact. The visualized paranasal sinuses and mastoid air cells are clear. Status post cataract surgery. There is calcific atherosclerosis along bilateral internal carotid artery siphons. Impression: No acute intracranial hemorrhage, mass effects or hydrocephalus. No compelling evidence of acute, territorial transcortical infarct at this time. If there is continued clinical suspicion for acute infarction, then MRI or repeat head CT should be obtained. Please correlate clinically. Reported By: Salena Monteiro MD 05/21/17 1344 Brain MRI with/o Contrast 05/21/17: TECHNIQUE: A multi sequential, multiplanar MRI of the brain was performed without contrast. COMPARISON: No prior studies available. Correlation made to the head CT performed earlier the same day. FINDINGS: There is no evidence of abnormal restricted diffusion within the brain to suggest acute or subacute infarction. There is generalized, age appropriate volume loss with secondary prominence of the CSF spaces. There is no evidence of hydrocephalus. There is no focal extra-axial collection. There is no mass effect or midline shift. There is mild patchy hyperintense T2/FLAIR signal in scattered within the deep and subcortical cerebral white matter reflecting mild chronic microvascular ischemic changes. There are punctate foci of susceptibility scattered within bilateral cerebellar hemispheres, right temporooccipital periventricular white matter, right parietal lobe and right superior frontal gyrus. These are likely foci of hemosiderin from prior petechial microhemorrhages hemorrhage. Susceptibility within bilateral globus palladi is secondary to age-related calcification. There is normal and symmetric T2 signal within bilateral cochleas , semicircular canals and vestibules. There is asymmetric nodularity in the superior aspect of the right internal artery territory canal, which is incompletely assessed without IV contrast. There is however no evidence of cerebellopontine angle mass. Cisternal segments of bilateral trigeminal nerves are unremarkable. Flow related signal voids are present within the central arteries of the [place] and major dural sinuses. Normal size pituitary gland. Status post cataract surgery. The visualized bone marrow signal is T1 hypointense, including the lateral masses of C1, odontoid process and visualized portions of bilateral mandibles. There are no fluid levels in the visualized paranasal sinuses or mastoid air cells. There is mild mucosal thickening along bilateral anterior ethmoids and maxillary sinuses. IMPRESSION: 1. No evidence of acute or subacute infarction. No mass effect, midline shift or hydrocephalus. 2. T1 hypointense bone marrow signal as described above, suspicious for infiltrative marrow replacing process. Please correlate clinically. 3. Focal 3 mm nodularity in the superior aspect of the RIGHT internal auditory canal is not well evaluated without IV contrast. Cannot exclude leptomeningeal disease or right IAC mass, such as a schwannoma. Suggest further evaluation with contrast-enhanced MRI. If there is clinical suspicion for leptomeningeal disease, then please correlate with CSF analysis. 4. Generalized, age appropriate volume loss with mild chronic microvascular ischemic changes. 5. Punctate foci of susceptibility as described are likely hemosiderin from prior petechial microhemorrhages. This is statistically likely to be due to hypertension, although amyloid angiopathy is not excluded. Reported By: Salena Monteiro MD 05/21/172005 Carotid Dopplers 05/21/17 COMPARISON: None. FINDINGS: RIGHT: There is intimal hyperplasia along the right common carotid artery. Moderate calcified atheromatous plaque at the bulb and bifurcation extending into the proximal ICA. Proximal right common carotid artery: Peak systolic velocity = 79 cm/s. End-diastolic velocity = 21 cm/s. Mid right common carotid artery: Peak systolic velocity = 87 cm/s. End-diastolic velocity = 25 cm / s. Distal right common carotid artery: Peak systolic velocity = 72 cm/s. End- diastolic velocity = 17 cm/s. Right carotid bulb: Peak systolic velocity = 82 cm /s and end-diastolic velocity = 21 cm/s. Proximal cervical right ICA: Peak systolic velocity = 134 cm/s and end-diastolic velocity = 45 cm/ s. Mid cervical right ICA: Peak systolic velocity = 97 cm/s and end-diastolic velocity = 32 cm/s. Right ICA/CCA peak systolic velocity ratio = 1.5 Right ICA/CCA end- diastolic velocity ratio = 1.8 Interrogated portion of the right vertebral artery demonstrates antegrade flow with peak systolic velocity = 51 cm/s with end-diastolic velocity = 18 cm/s. The origin of the right external carotid artery is patent, with peak systolic velocity = 114 cm/s. LEFT: There is intimal hyperplasia along the left common carotid artery. Mild calcified atheromatous plaque in the bulb.. Proximal left common carotid artery: Peak systolic velocity = 97 cm/s. End-diastolic velocity = 23 cm/s. Mid left common carotid artery: Peak systolic velocity = 85 cm/s. End-diastolic velocity = 25 cm /s. Distal left common carotid artery: Peak systolic velocity = 89 cm/s. End- diastolic velocity = 25 cm /s. Left carotid bulb: Peak systolic velocity = 81 cm /s and end-diastolic velocity = 26 cm/s. Proximal cervical left ICA: Peak systolic velocity = 89 cm/s and end-diastolic velocity = 25 cm/s. Mid cervical left ICA: Peak systolic velocity = 122 cm/s and end-diastolic velocity = 29 cm/ s. Left ICA/CCA peak systolic velocity ratio = 1.3 Left ICA/CCA end-diastolic velocity ratio = 1.3 Interrogated portion of the left vertebral artery demonstrates antegrade flow with peak systolic velocity = 61 cm/s and end- diastolic velocity = 23 cm/s. The origin of the left external carotid artery is patent, with peak systolic velocity = 157 cm/s. IMPRESSION: Moderate calcified atheromatous plaque in the right carotid bulb with elevated peak systolic velocity in the proximal right ICA is suggestive of 50-69% stenosis. Reported By: Salena Monteiro MD 05/22/17 1050 Brain MRI with Contrast (05/23/17) INDICATION: Suggestion of 3 mm nodule in right internal auditory canal. Right facial nerve palsy. TECHNIQUE: A multi planar postcontrast MRI of the brain was performed following intravenous administration of 15 mL of Omniscan contrast. COMPARISON: Noncontrast MRI of brain dated 05/21/2017. FINDINGS: There is image degradation from patient motion on all sequences, which limits evaluation. There is asymmetric abnormal enhancement tympanic and mastoid segments of the right facial nerve. There is also asymmetric enhancement within the right internal auditory canal fundus which may be related to enhancement of the labyrinthine segment of the facial nerve. Thin and exam limitations, there is no definite enhancing intra-axial mass or other area of abnormal leptomeningeal enhancement. The major dural sinuses are patent. 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 Recommend clinical follow-up to resolution of facial nerve palsy. 2D ECHO 05/23/17: LV size and systolic function nml, no regional wall motion abnormalities, RV systolic function moderately reduced, LA and RA severely dilated, mild MR/, mod TR/AR, R ventricular systolic pressure elevated 50-60mmHg, moderate pulmHTN , tricuspid regurgitant jet eccentrically directed HOSPITAL COURSE: Date of Admission:05/21/17 Date of Discharge: 05/25/17 Pre-admission Course: 87yo man with PMH of COPD (on home 2L), Afib (no AC, s/p cryomaze procedure), GIB, HTN, HLD, CAD (s/p 1 vessel disease), LV diastolic/systolic dysfunction, pulmonary HTN, chronic pancytopenia (low grade lymphoma) who presents with acute onset R sided facial weakness this morning. He first noticed R facial droop this morning after getting out of the shower. No facial droop seen last night, which is confirmed by his son at bedside. Reports right ear ache and discharge when attempted to check his ear for the past few days. Also dizziness with activity for a week, with tendency of swaying to the right and feeling unsteady. No fevers/chills. Recent exposure to grandchild who may have 'ear infection'. Denies any tingling/weakness/numbness elsewhere, no visual or speech disturbances, no sensory changes. No decreased PO intake. 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 Neurology and ENT were consulted. CVA work-up negative (Head CT, ECHO, Dopplers as described above). ENT (Dr. Alexis) cleaned and cauterized laceration in right external auditory canal. Wound care maintained and water avoided in R ear. No further bleeding or discharge noted following cauterization. Patient was started on Unasyn 1.5g IV q6H for empiric bacterial otitis media (started 05/21-), and discharged home on Augmentin 875mg PO BID for a total of 7 days. 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 VEGETABLES COOK evaluation found no e/o dysphagia. Brain MRI with and without contrast revealed chronic diffuse microvascular disease. A 3mm nodule in internal auditory canal was noted, with some concern for leptomeningial disease versus schwanoma, however was ruled out with further imaging with contrast. Patient has splenic marginal zone lymphoma; during admission WBC found to 1.1 and he was placed on neutropenic precautions. Laura was consulted, and will consider rituxan weekly x 4 if pancytopenia worsens, which will be assessed as an out-patient. Physical therapy evaluation recommended rolling walker due to unsteady gait, which he was prescribed on discharge. His blood pressure and COPD were well controlled with his home medications. Consults: ENT - Dr. Alexis, Dr. Treadwell Neurology - Dr. Snyder Heme - Dr. Hirsch, Dr. Faby Villatoro - Dr. Alicea Cardiology - Dr. Leong, Dr. Jara Minutes to complete discharge: 45 Discharge Summary Reason For Visit: FACIAL WEAKNESS Current Active Problems B-cell lymphoma (Acute) Chronic rhinitis (Acute) Dizziness (Acute) Facial droop (Acute) Laceration of right ear canal (Acute) Laceration of right ear canal (Acute) Pancytopenia (Acute) Pulmonary HTN (Acute) - Instructions Diet, Activity, Other Instructions: Recommendations: -You were admitted to the hospital for a right ear infection, which has also affected your balance and caused the right facial droop. -Please use the rolling walker until your balance improves. -You may resume your regular diet. Medications: -You may resume your regular home medications with the following additions: -Take one tablet Augmentin 875mg twice per day, including today and for two more days (last day 05/27). -Take 1 tablet of Valtrex 1g by mouth. Today you will take 2 doses (afternoon and nightime), and tomorrow until 05/29 take 1 tablet three times per day. -You are on a prednisone taper: -May 25, 16: take Prednisone 40mg -May 27, 18: take Prednisone 20mg -May 29, 20: take Prednisone 10mg Follow-ups: -Please see the ENT physician within 1 week for your ear infection. -Please see your primary care physician within 1-2 weeks. -Please see your Arcgis Developer/Oncologist within 1 week to check your CBC and discuss your lymphoma. Please return to the ED if your symptoms worsen, including worsening ear pain, discharge, or facial weakness. Referrals: Ean Pfeiffer MD [Staff Physician] - Luc Alexis MD [Staff Physician] - Radha Hobbs MD [Staff Physician] - Disposition: HOME - Home Medications Comprehensive Discharge Medication List: Ambulatory Orders Losartan Potassium [Cozaar] 25 mg PO DAILY 10/18/16 Albuterol Sulfate Inhaler - [Ventolin HFA Inhaler -] 2 puff IH Q4H PRN #30 inhaler 11/05/16 Metoprolol Tartrate [Lopressor -] 25 mg PO BID #60 tablet 11/05/16 Pantoprazole Sodium [Protonix -] 40 mg PO BID #60 tab 11/05/16 Polyethylene Glycol 3350 [Miralax 119 gm Btl -] 17 gm PO BID bottle 11/05/16 Spironolactone [Aldactone -] 25 mg PO BID #60 tablet 11/05/16 Furosemide [Lasix -] 40 mg PO Q48H 05/21/17 Prednisone [Deltasone -] 20 mg PO DAILY 05/21/17 This patient is new to me today: No Emergency Visit: No Critical Care patient: No - Discharge Referral Referred to [facility] No
[2017-05-25 08:07] LABS: IG G IMMUNOGLOBULIN 1081 mg/dL (700-1600)
[2017-05-25] MEDS: POLYETHYLENE GLYCOL 3350 119 GM BTL PO SCH (09:51)
[2017-05-25] MEDS: METOPROLOL TARTRATE 25 MG TABLET (FP) PO SCH (09:51)
[2017-05-25] MEDS: PANTOPRAZOLE 40 MG TABLET (FP) PO SCH (09:51)
[2017-05-25] MEDS: SPIRONOLACTONE 25 MG TABLET (FP) PO SCH (09:51)
[2017-05-25] MEDS ORDERED: predniSONE 20 MG TABLET (UD) PO SCH (10:00)
[2017-05-25] MEDS ORDERED: CYANOCOBALAMIN (VITAMIN B-12) 1000 MCG/1 ML VIAL IM ONE (10:45)
--- NOTE | 2017-05-25 11:27 | PN ---
Progress Note (short form) - Note Progress Note: PULMONARY AWAKE/ALERT WANTS TO GO HOME VSS/AFEBRILE RIGHT FACIAL PALSY SCATTEREDMINIMAL INSP CRACKLES S1S2 IRREGULAR BS+ OBESE MILD B/L ANKLE EDEMA LABS/MEDS/NOTES/IMAGES/O2 REQUIREMENTS REVIEWED OK FOR DISCHARGE WILL FOLLOW UP OUTPATIENT Felix ELIZABETH MD
[2017-05-25 11:31] VITALS: BP 118/60; PULSE 79; TEMP 98.6
--- NOTE | 2017-05-25 13:27 | PN ---
Teaching Attending Note Name of Resident: Ryanne Lynch ATTENDING PHYSICIAN STATEMENT I saw and evaluated the patient. I reviewed the resident's note and discussed the case with the resident. I agree with the resident's findings and plan as documented. SUBJECTIVE:states pain mostly resolved from R ear. denies Cp, SOB, feverr, chills, cough, N/V/C/D OBJECTIVE: Last Vital Signs Temp Pulse Resp BP Pulse Ox 98.6 F 79 20 118/60 94 L 05/25/17 09:00 05/25/17 09:00 05/25/17 09:00 05/25/17 09:00 05/25/17 09:00 General NAD HEENT STERLING, EOMI, no serous drainage noted, swollen R auricle. Neuro R facial droop. sensation grossly intact ASSESSMENT AND PLAN: 87yo M with PMH afib not on coumadin, CAD, ASD, systolic/diastolic CHF, COPD on home O2 and pancytopenia 2/2 lymphoma presented with R facial droop 1. R facial droop due to [place] Palsy 2/2 OM vs HSV- clinically improved.. on prednisone taper, augmentin and valtrex for 1 week. will need to f/u with ENT as outpatient. MRI with contrast is negative for mass which was initially seen on MRI without contrast. neuro and ENT on board 2. Pancytopenia- due to low grade lymphoma. may be candidate for rutxan weekly. onc follow up outpatient 3. 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 will need periodic monitoring as outpatient 4. COPD on home O2 5. afib not on coumadin 6. DNR/DNI. d/c home with RW. refused BENY.
--- NOTE | 2017-05-25 13:40 | PN ---
Progress Note (short form) - Note Progress Note: Chief Complaint: Events noted, notes reviewed, right sided facial weakness persists, denies any chest pain but reports persistent dyspnea History of Present Illness: Seen and examined earlier today prior to his discharge. Events noted, notes reviewed, right sided facial weakness persists, denies any chest pain but reports persistent dyspnea - Current Medication List Current Medications Albuterol Sulfate (Ventolin Hfa Inhaler -) 2 puff IH Q4H PRN PRN Reason: SHORT OF BREATH/WHEEZING Artificial Tears (Artificial Tears) 2 drop OU Q4HWA [facility] Last Admin: 05/24/17 11:41 Dose: 2 drop Furosemide (Lasix -) 40 mg PO Q48H [facility] Last Admin: 05/24/17 11:40 Dose: 40 mg Ampicillin Sodium/Sulbactam (Sodium 1.5 gm/ Sodium Chloride) 100 mls @ 200 mls/ hr IVPB Q6H-IV [facility] Last Admin: 05/24/17 12:41 Dose: 200 mls/hr Metoprolol Tartrate (Lopressor -) 25 mg PO BID [facility] Last Admin: 05/24/17 11:40 Dose: 25 mg Pantoprazole Sodium (Protonix -) 40 mg PO BID [facility] Last Admin: 05/24/17 11:39 Dose: 40 mg Polyethylene Glycol (Miralax (For Daily Use) -) 17 gm PO BID [facility] Last Admin: 05/24/17 11:41 Dose: Not Given Prednisone (Deltasone -) 60 mg PO DAILY [facility] Last Admin: 05/24/17 11:39 Dose: 60 mg Spironolactone (Aldactone -) 25 mg PO BID [facility] Last Admin: 05/24/17 11:40 Dose: 25 mg Valacyclovir HCl (Valtrex -) 1,000 mg PO TID [facility] Last Admin: 05/24/17 06:45 Dose: 1,000 mg Review of Systems Constitutional: denies Chills or Fever Respiratory: reports: Dyspnea Cardiovascular: As noted above Gastrointestinal: denies Nausea, Vomiting, Diarrhea or Constipation or Abdominal Discomfort Genitourinary: No Symptoms Reported Musculoskeletal: No Symptoms Reported - Objective Vital Signs: Last Vital Signs Temp Pulse Resp BP Pulse Ox 98.6 F 79 20 118/60 94 L 05/25/17 09:00 05/25/17 09:00 05/25/17 09:00 05/25/17 09:00 05/25/17 09:00 Intake & Output 05/22/17 05/23/17 05/24/17 05/25/17 23:59 23:59 23:59 23:59 Intake Total 780 580 900 200 Output Total 1300 500 850 Balance -520 80 50 200 Neck: Supple Negative JVD No Bruit Cardiovascular: S1 S2 Irregularly Irregular grade 2/6 SM Respiratory: Diminished Breath Sound at the Bases Gastrointestinal: Soft Benign Normal Bowel Sounds Ext: Trace to 1+ Edema Bilaterally Labs: CBC, BMP 05/24/17 12:19 Hepatic Panel Total Bilirubin 0.7 mg/dL (0.2-1.0) D 05/24/17 12:19 AST 10 U/L (15-37) L 05/24/17 12:19 ALT 10 U/L (12-78) L 05/24/17 12:19 Alkaline Phosphatase 66 U/L (45-117) 05/24/17 12:19 Albumin 2.7 g/dl (3.4-5.0) L 05/24/17 12:19 Assessment/Plan ASSESSMENT: 1. 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 Right otitis media 3. Benign positional vertigo, resolved 4. Diastolic LV dysfunction with chronic class I-II NYHA association LV failure , compensated/euvolemic 5. 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 Persistent atrial fibrillation post Cryo-Maze and NATE ligation, [id number] score of 5, currently off of A/C 7. Moderate to severe degree of pulmonary HTN 8. HTN 9. Hypercholesterolemia 10. ASD post surgical repair 11. History of hypercapneic respiratory failure, underlying COPD 12. Wade-cytopenia, low grade Lymphoma 13. History of CKD PLAN: 1. Continue Lasix and Aldactone with caution and close monitoring of renal function 2. Continue Lopressor, hemodynamics permitting 3. As outlined in prior notes recommend withholding A/C therapy indefinitely recognizing elevated stroke risk ([id number] score of 5) considering his history of recurrent GI bleed, patient not a candidate for Watchman device insertion, history of NATE ligation 4. Discharged home and patient was instructed to followup in the office in 2-3 weeks Nova Jara MD
[2017-05-26 06:06] LABS: HEMATOCRIT 31.9 % (37.5-51.0)
== END 2017-05-25 11:55 | disposition home health service (06) | DRG 866 ==
LOC: JER 11:42 → JERBED 14:58 → J4W 21:44 → J8W 05-23 12:25
PROVIDERS: ADMIT Hospitalist; ATTEND Internal Medicine
PROC: 09Q3XZZ Repair Right External Auditory Canal, External Approach (ICD-10-PCS; principal; 2017-05-22)
DX: B02.8 Zoster with other complications (principal); D61.818 Other pancytopenia; I25.110 Atherosclerotic heart disease of native coronary artery with unstable angina pectoris; C83.07 Small cell B-cell lymphoma, spleen; I13.0 Hypertensive heart and chronic kidney disease with heart failure and stage 1 through stage 4 chronic kidney disease, or unspecified chronic kidney disease; I50.42 Chronic combined systolic (congestive) and diastolic (congestive) heart failure; H92.11 Otorrhea, right ear; B02.21 Postherpetic geniculate ganglionitis; H66.41 Suppurative otitis media, unspecified, right ear; G51.0 Bell's palsy; J44.9 Chronic obstructive pulmonary disease, unspecified; J45.909 Unspecified asthma, uncomplicated; D64.9 Anemia, unspecified; I27.20 Pulmonary hypertension, unspecified; E78.5 Hyperlipidemia, unspecified; I45.19 Other right bundle-branch block; K21.9 Gastro-esophageal reflux disease without esophagitis; H81.10 Benign paroxysmal vertigo, unspecified ear; Z66 Do not resuscitate; J31.0 Chronic rhinitis; S01.311A Laceration without foreign body of right ear, initial encounter; X58.XXXA Exposure to other specified factors, initial encounter; Y93.89 Activity, other specified; Y92.098 Other place in other non-institutional residence as the place of occurrence of the external cause; G58.8 Other specified mononeuropathies; D36.10 Benign neoplasm of peripheral nerves and autonomic nervous system, unspecified; I65.21 Occlusion and stenosis of right carotid artery; N18.2 Chronic kidney disease, stage 2 (mild); I48.2 Chronic atrial fibrillation; Z99.81 Dependence on supplemental oxygen; Z87.891 Personal history of nicotine dependence
CPT/HCPCS: 36415; 70450-TC; 70544-TC; 70547-TC; 70551-TC; 70552-TC; 71020-TC; 80053; 81003; 81015; 82465; 82550; 82607; 82747; 82784; 83615; 83718; 83721; 83883; 84439; 84443; 84478; 84484; 84550; 85014; 85025; 85610; 85651; 86140; 86850; 86900; 86901; 93005; 93010; 93306-TC; 93880-TC; 97116-GP; 97161-GP; 99283-25

== ENCOUNTER 2017-06-18 02:26 | Inpatient (IN) | payer OTHER, MEDICARE ==
[2017-06-18 02:46] VITALS: BMI 25.1
[2017-06-18 04:07] LABS: MEAN CELL VOLUME 91.2 fl (80-96); PLATELET COUNT 142 K/MM3 (134-434); RDW 16.3 % (11.9-15.9); WHITE BLOOD COUNT 2.8 K/mm3 (4.0-10.0)
[2017-06-18 04:22] LABS: MAGNESIUM 1.9 mg/dL (1.8-2.4)
[2017-06-18 04:26] LABS: TROPONIN I 0.02 ng/ml (0.00-0.05)
--- NOTE | 2017-06-18 04:56 | PDOC ---
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 Pt states that since leaving the hospital, he has gotten progressively weaker to the point of being unable to get out of a chair on his own. He denies unilateral weakness/numbness/tingling. Endorses occasional nausea without vomiting. Denies abdominal pain/diarrhea. He denies F/C. Denies CP/SOB. PMD: Dr. Pennington (Patients nephew) " <Owen Owens - Last Filed: 06/20/17 13:14> - General Chief Complaint: Urinary Problem Stated Complaint: WEAKNESS Time Seen by Provider: 06/18/17 03:08 Past History <Latasha Hightower - Last Filed: 06/18/17 08:42> <Linette Rodas - Last Filed: 06/18/17 08:50> - Past Medical History Anemia: Yes Asthma: Yes Cardiac Disorders: Yes (A-FIB) CVA: Yes (cad, asd) COPD: Yes (& pulm htn) DVT: No GI Disorders: Yes (GI BLEED, WITH TRANSFUSION) HTN: Yes - Surgical History Cardiac Surgery: Yes (ASD) Orthopedic Surgery: Yes - Suicide/Smoking/Psychosocial Hx Smoking History: Unknown if ever smoked Have you smoked in the past 12 months: No If you are a former smoker, when did you quit?: 1984 Information on smoking cessation initiated: No Hx Alcohol Use: No Drug/Substance Use Hx: No Substance Use Type: None Hx Substance Use Treatment: No <Owen Owens - Last Filed: 06/20/17 13:14> - Past Medical History Allergies/Adverse Reactions: Allergies Allergy/AdvReac Type Severity Reaction Status Date / Time No Known Allergies Allergy Verified 06/18/17 02:40 Home Medications: Ambulatory Orders Losartan Potassium [Cozaar] 25 mg PO DAILY 10/18/16 Albuterol Sulfate Inhaler - [Ventolin HFA Inhaler -] 2 puff IH Q4H PRN #30 inhaler 11/05/16 Metoprolol Tartrate [Lopressor -] 25 mg PO BID #60 tablet 11/05/16 Pantoprazole Sodium [Protonix -] 40 mg PO BID #60 tab 11/05/16 Furosemide [Lasix -] 40 mg PO Q48H 05/21/17 Pantoprazole Sodium [Protonix -] 40 mg PO BID 06/18/17 Polyethylene Glycol 3350 [Miralax 119 gm Btl -] 17 gm PO DAILY PRN 06/18/17 Prednisone [Deltasone -] 20 mg PO DAILY 06/18/17 Spironolactone 25 mg PO BID 06/18/17 Review of Systems - Review of Systems Comments:: 06/18/17 05:15 "GENERAL/CONSTITUTIONAL: (+) Weakness. No fevers/chills HEAD, EYES, EARS, NOSE AND THROAT: No change in vision. No ear pain or discharge. No sore throat. CARDIOVASCULAR: No chest pain or shortness of breath. RESPIRATORY: No cough, wheezing, or hemoptysis. GASTROINTESTINAL: +Nausea, No vomiting, diarrhea or constipation. GENITOURINARY: No dysuria, frequency, or change in urination. MUSCULOSKELETAL: No joint or muscle swelling or pain. No neck or back pain. SKIN: No rash NEUROLOGIC: No headache, vertigo, loss of consciousness, or change in strength/ sensation. ENDOCRINE: No increased thirst. No abnormal weight change. HEMATOLOGIC/LYMPHATIC: No anemia, easy bleeding, or history of blood clots. ALLERGIC/IMMUNOLOGIC: No hives or skin allergy." <Owen Owens - Last Filed: 06/20/17 13:14> *Physical Exam - Vital Signs Last Vital Signs Temp Pulse Resp BP Pulse Ox 99.3 F 73 14 108/50 95 06/18/17 07:30 06/18/17 07:30 06/18/17 02:41 06/18/17 07:30 06/18/17 07:30 <Latasha Hightower - Last Filed: 06/18/17 08:42> - Vital Signs Last Vital Signs Temp Pulse Resp BP Pulse Ox 99.3 F 73 14 108/50 95 06/18/17 07:30 06/18/17 07:30 06/18/17 02:41 06/18/17 07:30 06/18/17 07:30 <Linette Rodas - Last Filed: 06/18/17 08:50> - Vital Signs Last Vital Signs Temp Pulse Resp BP Pulse Ox 99.5 F 98 H 14 112/58 95 06/18/17 02:41 06/18/17 02:41 06/18/17 02:41 06/18/17 02:41 06/18/17 02:41 - Physical Exam Comments: 06/18/17 05:15 "GENERAL: Awake, alert, and fully oriented, in no acute distress HEAD: No signs of trauma EYES: PERRLA, EOMI, sclera anicteric, conjunctiva clear ENT: Auricles normal inspection, hearing grossly normal, nares patent, oropharynx clear without exudates. Moist mucosa NECK: Nontender, no stepoffs, Normal ROM, supple, no lymphadenopathy, JVD, or masses LUNGS: Breath sounds equal, clear to auscultation bilaterally. No wheezes, and no crackles HEART: Regular rate and rhythm, normal S1 and S2, no murmurs, rubs or gallops ABDOMEN: Soft, nontender, normoactive bowel sounds. No guarding, no rebound. No masses EXTREMITIES: Normal range of motion, no edema. No clubbing or cyanosis. No cords, erythema, or tenderness NEUROLOGICAL: + R facial droop. 5/5 strength and sensation in all extremities, Normal speech, normal cerebellar function SKIN: Warm, Dry, normal turgor, no rashes or lesions noted. " <Ou,Owen - Last Filed: 06/20/17 13:14> Heart Score/ECG Review - ECG Impressions Comment:: 06/18/17 05:40 Afib, no MARY/STDs, RBBB, rate 79, QTc 454 <Ou,Owen - Last Filed: 06/20/17 13:14> ED Treatment Course - LABORATORY CBC & Chemistry Diagram: 06/18/17 03:35 06/18/17 03:35 - ADDITIONAL ORDERS Additional order review: Laboratory Results 06/18/17 06/18/17 06/18/17 06:00 05:50 03:35 PT with INR INR PTT (Actin FS) VBG pH 7.42 D POC VBG pCO2 54.9 H D POC VBG pO2 23.5 L Mixed VBG HCO3 35.1 H Sodium Potassium Chloride Carbon Dioxide Anion Gap BUN Creatinine Creat Clearance w eGFR Random Glucose Lactic Acid 1.5 Calcium Phosphorus Magnesium Total Bilirubin AST ALT Alkaline Phosphatase Ammonia Creatine Kinase Troponin I B-Natriuretic Peptide Total Protein Albumin Lipase TSH Urine Color Yellow Urine Appearance Clear Urine pH 6.0 Ur Specific [place] 1.025 Urine Protein Trace H Urine Glucose (UA) Negative Urine Ketones 1+ H Urine Blood Negative Urine Nitrite Negative Urine Bilirubin 1+ H Urine Urobilinogen 0.2 06/18/17 06/18/17 06/18/17 03:35 03:35 03:35 PT with INR 13.20 H INR 1.17 H PTT (Actin FS) VBG pH POC VBG pCO2 POC VBG pO2 Mixed VBG HCO3 Sodium 137 Potassium 3.8 Chloride 97 L Carbon Dioxide 32 Anion Gap 8 BUN 21 H Creatinine 1.2 Creat Clearance w eGFR 57.14 Random Glucose 157 H D Lactic Acid Calcium 8.4 L Phosphorus 2.5 D Magnesium 1.9 Total Bilirubin 1.3 H D AST 9 L ALT 13 D Alkaline Phosphatase 90 D Ammonia Creatine Kinase Troponin I B-Natriuretic Peptide 2599.05 H Total Protein 7.6 Albumin 2.9 L Lipase 42 L TSH 1.74 D Urine Color Urine Appearance Urine pH Ur Specific [place] Urine Protein Urine Glucose (UA) Urine Ketones Urine Blood Urine Nitrite Urine Bilirubin Urine Urobilinogen 06/18/17 06/18/17 06/18/17 03:35 03:35 03:35 PT with INR INR PTT (Actin FS) 39.5 H VBG pH POC VBG pCO2 POC VBG pO2 Mixed VBG HCO3 Sodium Potassium Chloride Carbon Dioxide Anion Gap BUN Creatinine Creat Clearance w eGFR Random Glucose Lactic Acid Calcium Phosphorus Magnesium Total Bilirubin AST ALT Alkaline Phosphatase [place] 20.91 Creatine Kinase 15 L Troponin I 0.02 B-Natriuretic Peptide Total Protein Albumin Lipase TSH Urine Color Urine Appearance Urine pH Ur Specific [place] Urine Protein Urine Glucose (UA) Urine Ketones Urine Blood Urine Nitrite Urine Bilirubin Urine Urobilinogen 06/18/17 07:36 Influenza Types A,B Antigen (LEA) - Final Nasopharyngeal Swab - Final 06/18/17 03:35 RBC 3.38 L MCV 91.2 MCHC 34.0 RDW 16.3 H MPV 7.0 L Neutrophils % No Result Required. Lymphocytes % No Result Required. <Latasha Hightower - Last Filed: 06/18/17 08:42> - LABORATORY CBC & Chemistry Diagram: 06/18/17 03:35 06/18/17 03:35 - ADDITIONAL ORDERS Additional order review: Laboratory Results 06/18/17 06/18/17 06/18/17 06:00 05:50 03:35 PT with INR INR PTT (Actin FS) VBG pH 7.42 D POC VBG pCO2 54.9 H D POC VBG pO2 23.5 L Mixed VBG HCO3 35.1 H Sodium Potassium Chloride Carbon Dioxide Anion Gap BUN Creatinine Creat Clearance w eGFR Random Glucose Lactic Acid 1.5 Calcium Phosphorus Magnesium Total Bilirubin AST ALT Alkaline Phosphatase Ammonia Creatine Kinase Troponin I B-Natriuretic Peptide Total Protein Albumin Lipase TSH Urine Color Yellow Urine Appearance Clear Urine pH 6.0 Ur Specific [place] 1.025 Urine Protein Trace H Urine Glucose (UA) Negative Urine Ketones 1+ H Urine Blood Negative Urine Nitrite Negative Urine Bilirubin 1+ H Urine Urobilinogen 0.2 06/18/17 06/18/17 06/18/17 03:35 03:35 03:35 PT with INR 13.20 H INR 1.17 H PTT (Actin FS) VBG pH POC VBG pCO2 POC VBG pO2 Mixed VBG HCO3 Sodium 137 Potassium 3.8 Chloride 97 L Carbon Dioxide 32 Anion Gap 8 BUN 21 H Creatinine 1.2 Creat Clearance w eGFR 57.14 Random Glucose 157 H D Lactic Acid Calcium 8.4 L Phosphorus 2.5 D Magnesium 1.9 Total Bilirubin 1.3 H D AST 9 L ALT 13 D Alkaline Phosphatase 90 D Ammonia Creatine Kinase Troponin I B-Natriuretic Peptide 2599.05 H Total Protein 7.6 Albumin 2.9 L Lipase 42 L TSH 1.74 D Urine Color Urine Appearance Urine pH Ur Specific [place] Urine Protein Urine Glucose (UA) Urine Ketones Urine Blood Urine Nitrite Urine Bilirubin Urine Urobilinogen 06/18/17 06/18/17 06/18/17 03:35 03:35 03:35 PT with INR INR PTT (Actin FS) 39.5 H VBG pH POC VBG pCO2 POC VBG pO2 Mixed VBG HCO3 Sodium Potassium Chloride Carbon Dioxide Anion Gap BUN Creatinine Creat Clearance w eGFR Random Glucose Lactic Acid Calcium Phosphorus Magnesium Total Bilirubin AST ALT Alkaline Phosphatase [place] 20.91 Creatine Kinase 15 L Troponin I 0.02 B-Natriuretic Peptide Total Protein Albumin Lipase TSH Urine Color Urine Appearance Urine pH Ur Specific [place] Urine Protein Urine Glucose (UA) Urine Ketones Urine Blood Urine Nitrite Urine Bilirubin Urine Urobilinogen 06/18/17 07:36 Influenza Types A,B Antigen (LEA) - Final Nasopharyngeal Swab - Final 06/18/17 03:35 RBC 3.38 L MCV 91.2 MCHC 34.0 RDW 16.3 H MPV 7.0 L Neutrophils % No Result Required. Lymphocytes % No Result Required. <Linette Rodas - Last Filed: 06/18/17 08:50> - LABORATORY CBC & Chemistry Diagram: 06/20/17 06:30 06/20/17 06:30 - ADDITIONAL ORDERS Additional order review: Laboratory Results 06/18/17 06/18/17 06/18/17 03:35 03:35 03:35 Lactic Acid 1.5 Magnesium 1.9 Ammonia 20.91 Creatine Kinase Troponin I B-Natriuretic Peptide 2599.05 H 06/18/17 03:35 Lactic Acid Magnesium Ammonia Creatine Kinase 15 L Troponin I 0.02 B-Natriuretic Peptide 06/18/17 03:35 RBC 3.38 L MCV 91.2 MCHC 34.0 RDW 16.3 H MPV 7.0 L Neutrophils % No Result Required. Lymphocytes % No Result Required. - RADIOLOGY Radiology Studies Ordered: Category Date Time Status ABDOMEN [id number] [RAD] Stat Radiology 06/18/17 03:23 Ordered CHEST PA & LAT [RAD] Stat Radiology 06/18/17 03:22 Ordered <Owen Owens - Last Filed: 06/20/17 13:14> Medical Decision Making - Medical Decision Making 06/18/17 08:40 Dr. Bolton was paged and notified via phone service. Case was discussed with Dr. Bolton at 8:48 and patient will be admitted to Hospitalist (Obs). <Linette Rodas - Last Filed: 06/18/17 08:50> - Medical Decision Making 06/18/17 05:18 87 M with generalized weakness. Etiology most likely infectious vs metabolic. Pt with no chest pain or SOB to suggest cardiac pathology. No focal neuro deficit other than known bells' palsy to suggest neuro process. Pt endorsing nausea and has mild abdominal distention but no tenderness. Low suspicion for obstructive process, but will obtain upright abdominal XR. - Labs - CXR, UA - Upright Abd XR 06/18/17 07:17 Pt signed out to oncoming attending, pending XR and UA results and possible admission to hospital. <Owen Owens - Last Filed: 06/20/17 13:14> *DC/Admit/Observation/Transfer <Latasha Hightower - Last Filed: 06/18/17 08:42> <Linette Rodas - Last Filed: 06/18/17 08:50> - Attestations Physician Attestion: 06/20/17 13:13 I, Dr. Owen Owens MD, attest that this document has been prepared under my direction and personally reviewed by me in its entirety. I further attest, that it accurately reflects all work, treatment, procedures and medical decision -making performed by me. <Owen Owens - Last Filed: 06/20/17 13:14> Diagnosis at time of Disposition: Weakness, Nausea & vomiting
[2017-06-18 05:16] LABS: INR 1.17 (0.82-1.09); PROTHROMBIN TIME (PATIENT) 13.2 SEC (9.98-11.88)
[2017-06-18 05:26] LABS: ALBUMIN 2.9 g/dl (3.4-5.0); ALK PHOS 90 U/L (45-117); ANION GAP 8 (8-16); BILIRUBIN,TOTAL 1.3 mg/dL (0.2-1.0); CALCIUM 8.4 mg/dL (8.5-10.1); CO2 32 mmol/L (21-32); CREATININE 1.2 mg/dL (0.7-1.3); GLUCOSE,RANDOM 157 mg/dL (74-106); PHOSPHOROUS 2.5 mg/dL (2.5-4.9); SGOT/AST 9 U/L (15-37); SGPT/ALT 13 U/L (12-78); TOT PROT 7.6 g/dl (6.4-8.2)
[2017-06-18 05:34] LABS: THYROID STIMULATING HORMONE 1.74 uIU/ml (0.358-3.74)
[2017-06-18 06:08] LABS: VENOUS PH 7.42 (7.32-7.42)
[2017-06-18 06:09] LABS: VENOUS BLOOD GAS HCO3 35.1 meq/L (19-25)
[2017-06-18 06:52] LABS: URINE APPEARANCE CLEAR; URINE BILIRUBIN 1+ (NEGATIVE); URINE BLOOD NEGATIVE (NEGATIVE); URINE COLOR YELLOW; URINE GLUCOSE (UA) NEGATIVE (NEGATIVE); URINE KETONE 1+ (NEGATIVE); URINE LEUK ESTERASE NEGATIVE (NEGATIVE); URINE NITRITE NEGATIVE (NEGATIVE); URINE PROTEIN TRACE (NEGATIVE); URINE UROBILINOGEN 0.2 mg/dL (0.2-1.0)
--- NOTE | 2017-06-18 08:51 | PDOC ---
*Physical Exam - Vital Signs Last Vital Signs Temp Pulse Resp BP Pulse Ox 99.3 F 73 14 108/50 95 06/18/17 07:30 06/18/17 07:30 06/18/17 02:41 06/18/17 07:30 06/18/17 07:30 - Physical Exam General Appearance: Yes: Nourished Respiratory/Chest: positive: Lungs Clear, Normal Breath Sounds Cardiovascular: positive: Regular Rhythm, Regular Rate, S1, S2 Gastrointestinal/Abdominal: positive: Normal Bowel Sounds, Flat, Soft. negative : Tender Musculoskeletal: positive: Normal Inspection. negative: CVA Tenderness Extremity: positive: Normal Capillary Refill Integumentary: positive: Normal Color, Dry, Warm Neurologic: positive: Alert, Normal Mood/Affect, Motor Strength 5/5, Other ( right facial weakness. ) ED Treatment Course - LABORATORY CBC & Chemistry Diagram: 06/18/17 03:35 06/18/17 03:35 - ADDITIONAL ORDERS Additional order review: Laboratory Results 06/18/17 06/18/17 06/18/17 06:00 05:50 03:35 PT with INR INR PTT (Actin FS) VBG pH 7.42 D POC VBG pCO2 54.9 H D POC VBG pO2 23.5 L Mixed VBG HCO3 35.1 H Sodium Potassium Chloride Carbon Dioxide Anion Gap BUN Creatinine Creat Clearance w eGFR Random Glucose Lactic Acid 1.5 Calcium Phosphorus Magnesium Total Bilirubin AST ALT Alkaline Phosphatase Ammonia Creatine Kinase Troponin I B-Natriuretic Peptide Total Protein Albumin Lipase TSH Urine Color Yellow Urine Appearance Clear Urine pH 6.0 Ur Specific [place] 1.025 Urine Protein Trace H Urine Glucose (UA) Negative Urine Ketones 1+ H Urine Blood Negative Urine Nitrite Negative Urine Bilirubin 1+ H Urine Urobilinogen 0.2 06/18/17 06/18/17 06/18/17 03:35 03:35 03:35 PT with INR 13.20 H INR 1.17 H PTT (Actin FS) VBG pH POC VBG pCO2 POC VBG pO2 Mixed VBG HCO3 Sodium 137 Potassium 3.8 Chloride 97 L Carbon Dioxide 32 Anion Gap 8 BUN 21 H Creatinine 1.2 Creat Clearance w eGFR 57.14 Random Glucose 157 H D Lactic Acid Calcium 8.4 L Phosphorus 2.5 D Magnesium 1.9 Total Bilirubin 1.3 H D AST 9 L ALT 13 D Alkaline Phosphatase 90 D Ammonia Creatine Kinase Troponin I B-Natriuretic Peptide 2599.05 H Total Protein 7.6 Albumin 2.9 L Lipase 42 L TSH 1.74 D Urine Color Urine Appearance Urine pH Ur Specific [place] Urine Protein Urine Glucose (UA) Urine Ketones Urine Blood Urine Nitrite Urine Bilirubin Urine Urobilinogen 06/18/17 06/18/17 06/18/17 03:35 03:35 03:35 PT with INR INR PTT (Actin FS) 39.5 H VBG pH POC VBG pCO2 POC VBG pO2 Mixed VBG HCO3 Sodium Potassium Chloride Carbon Dioxide Anion Gap BUN Creatinine Creat Clearance w eGFR Random Glucose Lactic Acid Calcium Phosphorus Magnesium Total Bilirubin AST ALT Alkaline Phosphatase [place] 20.91 Creatine Kinase 15 L Troponin I 0.02 B-Natriuretic Peptide Total Protein Albumin Lipase TSH Urine Color Urine Appearance Urine pH Ur Specific [place] Urine Protein Urine Glucose (UA) Urine Ketones Urine Blood Urine Nitrite Urine Bilirubin Urine Urobilinogen 06/18/17 07:36 Influenza Types A,B Antigen (LEA) - Final Nasopharyngeal Swab - Final 06/18/17 03:35 RBC 3.38 L MCV 91.2 MCHC 34.0 RDW 16.3 H MPV 7.0 L Neutrophils % No Result Required. Lymphocytes % No Result Required. Medical Decision Making - Medical Decision Making 06/18/17 08:51 87-year-old male with history of COPD, CAD, hypertension, pulmonary hypertension on home O2 here today him planing and progressive weakness thought he may be developing some sort of infection. Patient states over the last few weeks he had persistent nausea and sometimes emesis has been unable to tolerate much by mouth denies fevers or chills and has a cough which is chronic states his weakness is bilateral does not seem to be focal however he did recently get diagnosed with right facial Cardenas's palsy normally walks with a walker but on the night previous was unable to get up to get to the bathroom even with his walker. Patient was signed out to me by Dr. Owens, pending chest x-ray and remainder of lab evaluation. Chest x-ray is negative for any acute infection x-ray of the abdomen demonstrates constipation. On reassessment patient states he is too weak to go home due to concerns for persistent nausea and intermittent vomiting we'll consider admission possible CT abdomen and pelvis and head discussed with Dr. Bolton who recommends admission to the hospitalist for observation patient minute require PT evaluation and admission *DC/Admit/Observation/Transfer Diagnosis at time of Disposition: Weakness, Nausea & vomiting - Discharge Dispostion Admit: Yes - Referrals Referrals: Ean Pfeiffer MD [Primary Care Provider] - - Patient Instructions - Post Discharge Activity
[2017-06-18 09:31] LABS: PLATELET COMMENTS NO CLUMPING NOTED; PLATELET ESTIMATE DECREASED; TOTAL CELLS COUNTED 100
--- NOTE | 2017-06-18 10:15 | HP ---
CHIEF COMPLAINT: Too weak to stand. PCP: Dr. 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 Patient states that since his discharge from the hospital three weeks ago he has decreased appetite, difficulty swallowing, and coughing with PO intake. He states he has become progressively weaker although he has been working with a physical therapist at home and is able to perform the exercises asked of him. Last night he was so weak he could not stand and felt he needed to come to the hospital. Patient also complains of constipation. 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 Chronic kidney disease Cardenas's Palsy PAST SURGICAL HISTORY: ASD repair Social History: Smoking: quit 30 years ago, 40 pack year history Alcohol: social Drugs: denies Family History: Allergies No Known Allergies Allergy (Verified 06/18/17 02:40) HOME MEDICATIONS: Home Medications Medication Instructions Recorded Losartan Potassium [Cozaar] 25 mg PO DAILY 10/18/16 Albuterol Sulfate Inhaler - 2 puff IH Q4H PRN #30 inhaler 11/05/16 [Ventolin HFA Inhaler -] Metoprolol Tartrate [Lopressor -] 25 mg PO BID #60 tablet 11/05/16 Pantoprazole Sodium [Protonix -] 40 mg PO BID #60 tab 11/05/16 Furosemide [Lasix -] 40 mg PO Q48H 05/21/17 Polyethylene Glycol 3350 [Miralax 17 gm PO DAILY PRN 06/18/17 119 gm Btl -] REVIEW OF SYSTEMS CONSTITUTIONAL: Present: generalized weakness, loss of appetitie Absent: fever, chills, diaphoresis, malaise, weight change HEENT: Present: difficulty swallowing, cough with PO intake Absent: rhinorrhea, nasal congestion, throat pain, throat swelling, mouth swelling, ear pain, eye pain, visual changes CARDIOVASCULAR: Absent: chest pain, syncope, palpitations, irregular heart rate, lightheadedness , peripheral edema RESPIRATORY: Absent: cough, shortness of breath, dyspnea with exertion, orthopnea, wheezing, stridor, hemoptysis GASTROINTESTINAL: Absent: abdominal pain, abdominal distension, nausea, vomiting, diarrhea, constipation, melena, hematochezia GENITOURINARY: Absent: dysuria, frequency, urgency, hesitancy, hematuria, flank pain, genital pain MUSCULOSKELETAL: Present: lower extremity weakness Absent: myalgia, arthralgia, joint swelling, back pain, neck pain SKIN: Absent: rash, itching, pallor HEMATOLOGIC/IMMUNOLOGIC: Absent: easy bleeding, easy bruising, lymphadenopathy, frequent infections ENDOCRINE: Absent: unexplained weight gain, unexplained weight loss, heat intolerance, cold intolerance NEUROLOGIC: Absent: headache, focal weakness or paresthesias, dizziness, unsteady gait, seizure, mental status changes, bladder or bowel incontinence PSYCHIATRIC: Absent: anxiety, depression, suicidal or homicidal ideation, hallucinations. PHYSICAL EXAMINATION Vital Signs - 24 hr 06/18/17 06/18/17 06/18/17 02:41 05:08 07:30 Temperature 99.5 F 99.3 F Pulse Rate 98 H Pulse Rate [ 73 Apical] Respiratory 14 Rate Blood Pressure 112/58 Blood Pressure 108/50 [Left Arm] O2 Sat by Pulse 95 96 95 Oximetry (%) GENERAL: Awake, alert, and fully oriented, in no acute distress. HEAD: Normal with no signs of trauma. Severe right sided facial droop. EYES: Pupils equal, round and reactive to light, extraocular movements intact, sclera anicteric; right eye conjunctiva reddened, pus in lower lid, eyelid remains open EARS, NOSE, THROAT: Ears normal, nares patent, oropharynx clear without exudates. Dry mucous membranes. NECK: Normal range of motion, supple without lymphadenopathy, JVD, or masses. LUNGS: Breath sounds equal, clear to auscultation bilaterally. No wheezes, and no crackles. No accessory muscle use. HEART: Regular rate and rhythm, normal S1 and S2 ABDOMEN: Soft, nontender, not distended, normoactive bowel sounds, no guarding, no rebound, no masses. MUSCULOSKELETAL: Normal range of motion at all joints. No bony deformities or tenderness. No CVA tenderness. UPPER EXTREMITIES: 2+ pulses, warm, well-perfused. No cyanosis. No clubbing. No peripheral edema. Extensive bilateral purpura. LOWER EXTREMITIES: 2+ pulses, warm, well-perfused. No calf tenderness. No peripheral edema. Venous stasis changes NEUROLOGICAL: Cranial nerve VII neuropathy. Normal speech. Laboratory Results - last 24 hr 06/18/17 06/18/17 06/18/17 03:35 03:35 03:35 WBC 2.8 L D RBC 3.38 L Hgb 10.5 L Hct 30.8 L MCV 91.2 MCH 31.0 MCHC 34.0 RDW 16.3 H Plt Count 142 D MPV 7.0 L Total Counted 100 Neutrophils % No Result Required. Neutrophils % (Manual) 68.0 Band Neutrophils % 4.0 Lymphocytes % No Result Required. Lymphocytes % (Manual) 4.0 L D Monocytes % (Manual) 23 H* Eosinophils % (Manual) 1.0 Platelet Estimate Decreased Platelet Comment No clumping noted PT with INR INR PTT (Actin FS) 39.5 H VBG pH POC VBG pCO2 POC VBG pO2 Mixed VBG HCO3 Sodium Potassium Chloride Carbon Dioxide Anion Gap BUN Creatinine Creat Clearance w eGFR Random Glucose Lactic Acid Calcium Phosphorus Magnesium Total Bilirubin AST ALT Alkaline Phosphatase Ammonia Creatine Kinase 15 L Troponin I 0.02 B-Natriuretic Peptide Total Protein Albumin Lipase TSH Urine Color Urine Appearance Urine pH Ur Specific [place] Urine Protein Urine Glucose (UA) Urine Ketones Urine Blood Urine Nitrite Urine Bilirubin Urine Urobilinogen 06/18/17 06/18/17 06/18/17 03:35 03:35 03:35 WBC RBC Hgb Hct MCV MCH MCHC RDW Plt Count MPV Total Counted Neutrophils % Neutrophils % (Manual) Band Neutrophils % Lymphocytes % Lymphocytes % (Manual) Monocytes % (Manual) Eosinophils % (Manual) Platelet Estimate Platelet Comment PT with INR 13.20 H INR 1.17 H PTT (Actin FS) VBG pH POC VBG pCO2 POC VBG pO2 Mixed VBG HCO3 Sodium Potassium Chloride Carbon Dioxide Anion Gap BUN Creatinine Creat Clearance w eGFR Random Glucose Lactic Acid Calcium Phosphorus Magnesium 1.9 Total Bilirubin AST ALT Alkaline Phosphatase Ammonia 20.91 Creatine Kinase Troponin I B-Natriuretic Peptide 2599.05 H Total Protein Albumin Lipase TSH Urine Color Urine Appearance Urine pH Ur Specific [place] Urine Protein Urine Glucose (UA) Urine Ketones Urine Blood Urine Nitrite Urine Bilirubin Urine Urobilinogen 06/18/17 06/18/17 06/18/17 03:35 03:35 05:50 WBC RBC Hgb Hct MCV MCH MCHC RDW Plt Count MPV Total Counted Neutrophils % Neutrophils % (Manual) Band Neutrophils % Lymphocytes % Lymphocytes % (Manual) Monocytes % (Manual) Eosinophils % (Manual) Platelet Estimate Platelet Comment PT with INR INR PTT (Actin FS) VBG pH 7.42 D POC VBG pCO2 54.9 H D POC VBG pO2 23.5 L Mixed VBG HCO3 35.1 H Sodium 137 Potassium 3.8 Chloride 97 L Carbon Dioxide 32 Anion Gap 8 BUN 21 H Creatinine 1.2 Creat Clearance w eGFR 57.14 Random Glucose 157 H D Lactic Acid 1.5 Calcium 8.4 L Phosphorus 2.5 D Magnesium Total Bilirubin 1.3 H D AST 9 L ALT 13 D Alkaline Phosphatase 90 D Ammonia Creatine Kinase Troponin I B-Natriuretic Peptide Total Protein 7.6 Albumin 2.9 L Lipase 42 L TSH 1.74 D Urine Color Urine Appearance Urine pH Ur Specific [place] Urine Protein Urine Glucose (UA) Urine Ketones Urine Blood Urine Nitrite Urine Bilirubin Urine Urobilinogen 06/18/17 06:00 WBC RBC Hgb Hct MCV MCH MCHC RDW Plt Count MPV Total Counted Neutrophils % Neutrophils % (Manual) Band Neutrophils % Lymphocytes % Lymphocytes % (Manual) Monocytes % (Manual) Eosinophils % (Manual) Platelet Estimate Platelet Comment PT with INR INR PTT (Actin FS) VBG pH POC VBG pCO2 POC VBG pO2 Mixed VBG HCO3 Sodium Potassium Chloride Carbon Dioxide Anion Gap BUN Creatinine Creat Clearance w eGFR Random Glucose Lactic Acid Calcium Phosphorus Magnesium Total Bilirubin AST ALT Alkaline Phosphatase Ammonia Creatine Kinase Troponin I B-Natriuretic Peptide Total Protein Albumin Lipase TSH Urine Color Yellow Urine Appearance Clear Urine pH 6.0 Ur Specific [place] 1.025 Urine Protein Trace H Urine Glucose (UA) Negative Urine Ketones 1+ H Urine Blood Negative Urine Nitrite Negative Urine Bilirubin 1+ H Urine Urobilinogen 0.2 ASSESSMENT/PLAN 87 year-old male with a PMH significant for HTN, HLD, CAD, atrial fibrillation not on anticoagulation due to h/o recurrent GI bleed, diastolic heart failure, pulmonary HTN, 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 Admitted for severe dysphagia likely secondary to Cardenas's palsy. Severe dysphagia likely secondary to Cardenas's palsy --coughs with PO intake, sometimes feels food gets stuck, has had 1 or 2 episodes of vomiting food; has not had a full meal since being diagnosed 3 weeks ago --modified barium swallow and evaluation Generalized weakness Failure to thrive --decreased PO intake due to swallowing difficulty --daily weights --nutrition consult Right eye conjunctivitis secondary to Cardenas's Palsy --polymixin B ointment --eye shield --has appointment this week with opthalmologist Dr. Treviño to discuss suturing eye closed Constipation --enema today --miralax, colace, senna Hypertension --has mild hypotension --hold lasix, spironolactone --gentle IV fluids --monitor respiratory status, serial CXRs Hyperlipidemia --not on medication Coronary artery disease --continue metoprolol Atrial fibrillation --not on a/c due to h/o GI bleed --continue metoprolol Diastolic heart failure --appears dry, mildly hypotensive, possibly over-diuresed --hold lasix, spironolactone --closely monitor fluid status while on IV fluids COPD Centrilobular emphysema --continue O2 to keep SpO2>90% --inhaled bronchodilators --pulmonary following 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 Full code. Visit type - Emergency Visit Emergency Visit: Yes ED Registration Date: 06/18/17 Care time: The patient presented to the Emergency Department on the above date and was hospitalized for further evaluation of their emergent condition. - New Patient This patient is new to me today: Yes Date on this admission: 06/18/17 - Critical Care Critical Care patient: No
[2017-06-18] MEDS ORDERED: POLYETHYLENE GLYCOL 3350 119 GM BTL PO PRN (11:09)
[2017-06-18] MEDS ORDERED: ALBUTEROL SO4 18 GM HFA INHALER IH PRN (11:09)
[2017-06-18] MEDS ORDERED: FUROSEMIDE 40 MG TABLET (FP) PO SCH (12:00)
[2017-06-18] MEDS ORDERED: SODIUM PHOSPHATE/NA BIPHOS 133 ML ENEMA PR ONE (13:00)
[2017-06-18] MEDS: LOSARTAN POTASSIUM 25 MG TABLET PO SCH (13:16)
--- NOTE | 2017-06-18 13:16 | CON.PULM ---
Consult Consult Specialty:: PULMONARY Referred by:: RENEE Hamilton Reason for Consultation:: COPD - History of Present Illness Chief Complaint: generalized weakness History of Present Illness: 87yo male with h/o HTN, hyperlipidemia, CAD, COPD, chronic hypoxic respiratory failure on home O2, LV diastolic dysfunction, atrial fibrillation, pulmonary HTN , low grade lymphoma, recent admission for [place] palsy, CVA ruled out who presents with worsening generalized weakness. He states that ever since he was discharged, he has been feeling weak, unsteady with ambulating. No falls. No subjective fevers but did experience chills yesterday. No cough or shortness of breath. No chest pain. Reports decreased PO intake and appetite. Not even taking much fluids. Has been constipated for the past week even requiring self impaction yesterday. Upon chart review, he was 210lbs during an admission in October, currently 175lbs. - History Source History Provided By: Patient, Family Member - Past Medical History Cardio/Vascular: Yes: AFIB, CAD, CHF ([place] on chronic LV systolic and diastolic heart failure), Pulmonary Hypertension, Other (REPAIR OF LARGE ASD) Pulmonary: Yes: COPD, Other (PULMONARY HYPERTENSION). No: Cancer, O2 Dependent , Previously Intubated, Pulmonary Embolus Musculoskeletal: Yes: Osteoarthritis. No: Chronic low back pain ENT: Yes: Other (H/O EPISTAXSIS WITH ER VISTS TWICE OVER PAST 12 MONTHS.) - Alcohol/Substance Use Hx Alcohol Use: No History of Substance Use: reports: None - Smoking History Smoking history: Unknown if ever smoked Have you smoked in the past 12 months: No If you are a former smoker, when did you quit?: 1984 - Social History ADL: Family Assistance History of Recent Travel: No Home Medications - Allergies Allergies/Adverse Reactions: Allergies Allergy/AdvReac Type Severity Reaction Status Date / Time No Known Allergies Allergy Verified 06/18/17 02:40 - Home Medications Home Medications: Ambulatory Orders Losartan Potassium [Cozaar] 25 mg PO DAILY 10/18/16 Albuterol Sulfate Inhaler - [Ventolin HFA Inhaler -] 2 puff IH Q4H PRN #30 inhaler 11/05/16 Metoprolol Tartrate [Lopressor -] 25 mg PO BID #60 tablet 11/05/16 Pantoprazole Sodium [Protonix -] 40 mg PO BID #60 tab 11/05/16 Furosemide [Lasix -] 40 mg PO Q48H 05/21/17 Polyethylene Glycol 3350 [Miralax 119 gm Btl -] 17 gm PO DAILY PRN 06/18/17 Family Disease History - Family Disease History Family Disease History: Heart Disease: Father, Sister, [place]: Brother (CVA, PROSTATE CANCE,LUNG CANCER,PANCREATIC CANCER), Other: Brother Review of Systems - Review of Systems Constitutional: reports: Chills. denies: Fever Eyes: denies: Recent Change in Vision HENT: denies: Nasal Congestion, Throat Pain Neck: denies: Stiffness, Tenderness Cardiovascular: denies: Chest Pain, Edema, Palpitations, Shortness of Breath Respiratory: denies: Hemoptysis, SOB, Wheezing Gastrointestinal: denies: Abdominal Pain, Nausea, Vomiting Genitourinary: denies: Dysuria, Hematuria Neurological: denies: Dizziness, Headache Physical Exam Vital Sings: Vital Signs Temperature 98.8 F 06/18/17 13:03 Pulse Rate 75 06/18/17 13:03 Respiratory Rate 18 06/18/17 13:03 Blood Pressure 93/46 06/18/17 13:03 O2 Sat by Pulse Oximetry (%) 99 06/18/17 10:48 Constitutional: Yes: Calm Eyes: Yes: Conjunctiva Clear, EOM Intact HENT: Yes: Atraumatic, Normocephalic Neck: Yes: Supple, Trachea Midline Cardiovascular: Yes: Regular Rate and Rhythm Respiratory: Yes: Regular, Diminished (decreased breath sounds at the bases) ...Clubbing: No Gastrointestinal: Yes: Normal Bowel Sounds, Soft. No: Tenderness Edema: No Neurological: Yes: Alert, Oriented, Facial Droop (left) Labs: CBC, BMP 06/18/17 03:35 06/18/17 03:35 Imaging - Results Chest X-ray: Report Reviewed, Image Reviewed (chronic changes) Problem List - Problems (1) Weakness Code(s): R53.1 - WEAKNESS (2) COPD (chronic obstructive pulmonary disease) Code(s): J44.9 - CHRONIC OBSTRUCTIVE PULMONARY DISEASE, UNSPECIFIED Qualifiers: COPD type: unspecified COPD Qualified Code(s): J44.9 - Chronic obstructive pulmonary disease, unspecified (3) CAD (coronary artery disease) Code(s): I25.10 - ATHSCL HEART DISEASE OF [place] CORONARY ARTERY W/O ANG PCTRS Qualifiers: Coronary Disease-Associated Artery/Lesion type: [place] artery [place] vs. transplanted heart: [place] heart Associated angina: without angina Qualified Code(s): I25.10 - Atherosclerotic heart disease of [place] coronary artery without angina pectoris (4) Chronic respiratory failure with hypoxia and hypercapnia Code(s): J96.11 - CHRONIC RESPIRATORY FAILURE WITH HYPOXIA; J96.12 - CHRONIC RESPIRATORY FAILURE WITH HYPERCAPNIA (5) Pulmonary HTN Code(s): I27.20 - PULMONARY HYPERTENSION, UNSPECIFIED (6) Failure to thrive in adult Code(s): R62.7 - ADULT FAILURE TO THRIVE Assessment/Plan Generalized Weakness Failure to Thrive COPD Chronic Hypoxic and Hypercapneic Respiratory Failure CAD Pulmonary HTN Atrial Fibrillation Lymphoma - will start gentle hydration - fleet enemas, bowel regimen - O2 to keep SpO2 >90% - inhaled bronchodilators - PO as tolerated, will likely need dietary supplementation - will hold lasix as he appears dry - physical therapy eval - may need short term rehab Thank you for this consult Harish Bolton MD
[2017-06-18] MEDS: SODIUM CHLORIDE 1,000 ML IV SCH (13:25)
[2017-06-18 14:19] LABS: URINE LEUK ESTERASE Negative (NEGATIVE)
[2017-06-18] MEDS: DOCUSATE SODIUM 100 MG CAPSULE (FP) PO SCH ×2 (15:44→22:23)
[2017-06-18] MEDS: METOPROLOL TARTRATE 25 MG TABLET (FP) PO SCH (21:20)
[2017-06-18] MEDS: predniSONE 20 MG TABLET (UD) PO SCH (21:30)
--- NOTE | 2017-06-18 21:31 | EKG ---
Test Reason : Blood Pressure : / mmHG Vent. Rate : 079 BPM Atrial Rate : 083 BPM P-R Int : 000 ms QRS Dur : 156 ms QT Int : 396 ms P-R-T Axes : 000 062 063 degrees QTc Int : 454 ms ATRIAL FIBRILLATION RIGHT BUNDLE BRANCH BLOCK CANNOT RULE OUT INFERIOR INFARCT (CITED ON OR BEFORE 21-MAY-2017) T WAVE ABNORMALITY, CONSIDER LATERAL ISCHEMIA ABNORMAL ECG WHEN COMPARED WITH ECG OF 21-MAY-2017 12:18, ATRIAL FIBRILLATION HAS REPLACED NORMAL SINUS RHYTHM Confirmed by DAMON FERRELL MD ([id number]) on 06/18/2017 9:30:36 PM Referred By: Confirmed By:DAMON FERRELL MD
[2017-06-18] MEDS: BACITRACIN/POLYMYXIN OPH OINT 3.5 GM TUBE OD SCH (22:21)
[2017-06-18] MEDS: SENNOSIDES 8.6MG TABLET (FP) PO SCH (22:23)
[2017-06-18] MEDS: POLYETHYLENE GLYCOL 3350 119 GM BTL PO SCH (22:23)
[2017-06-18] MEDS: PANTOPRAZOLE 40 MG TABLET (FP) PO SCH (22:23)
[2017-06-19] MEDS: DOCUSATE SODIUM 100 MG CAPSULE (FP) PO SCH ×3 (06:12→23:17)
[2017-06-19 07:04] LABS: BASO % 0.2 % (0-2.0); EOS % 0.2 % (0-4.5); MCH 30.2 pg (25.7-33.7); MCHC 32.8 g/dl (32.0-35.9); MEAN CELL VOLUME 91.9 fl (80-96); MEAN PLT VOLUME 7.4 fl (7.5-11.1); NEUT % 77.4 % (42.8-82.8); PLATELET COUNT 137 K/MM3 (134-434); WHITE BLOOD COUNT 2.4 K/mm3 (4.0-10.0)
[2017-06-19] MEDS ORDERED: INSULIN (NOVOLOG) ASPART 100 UNITS/ML 10ML VIAL ONE (07:11)
[2017-06-19 07:35] LABS: ALBUMIN 2.6 g/dl (3.4-5.0); BILIRUBIN,DIRECT 0.6 mg/dL (0.0-0.2)
[2017-06-19 07:38] LABS: BILIRUBIN,TOTAL 1.1 mg/dL (0.2-1.0); TOT PROT 6.8 g/dl (6.4-8.2)
[2017-06-19 08:06] LABS: ALBUMIN 2.5 g/dl (3.4-5.0); ANION GAP 7 (8-16); CALCIUM 8.3 mg/dL (8.5-10.1); CO2 32 mmol/L (21-32); CREATININE 1.1 mg/dL (0.7-1.3); GLUCOSE,RANDOM 109 mg/dL (74-106); MAGNESIUM 1.9 mg/dL (1.8-2.4); SGOT/AST 8 U/L (15-37); SGPT/ALT 11 U/L (12-78); TOT PROT 6.8 g/dl (6.4-8.2)
[2017-06-19 08:10] LABS: ALK PHOS 69 U/L (45-117); BILIRUBIN,TOTAL 1.2 mg/dL (0.2-1.0)
[2017-06-19] MEDS ORDERED: POLYETHYLENE GLYCOL 3350 119 GM BTL PO SCH (10:00)
[2017-06-19] MEDS ORDERED: PT OWN MED DRAWER 7, Y5N ONE (10:23)
[2017-06-19] MEDS: METOPROLOL TARTRATE 25 MG TABLET (FP) PO SCH ×2 (10:28→23:18)
[2017-06-19] MEDS: LOSARTAN POTASSIUM 25 MG TABLET PO SCH (10:28)
[2017-06-19] MEDS: predniSONE 20 MG TABLET (UD) PO SCH (10:30)
[2017-06-19] MEDS: PANTOPRAZOLE 40 MG TABLET (FP) PO SCH ×2 (10:30→23:18)
[2017-06-19] MEDS: ENOXAPARIN NA (PORCINE) 40 MG/0.4 ML DISP.SYRIN SQ SCH (10:30)
[2017-06-19] MEDS: BACITRACIN/POLYMYXIN OPH OINT 3.5 GM TUBE OD SCH ×2 (10:30→23:18)
[2017-06-19] MEDS: POLYETHYLENE GLYCOL 3350 119 GM BTL PO SCH ×2 (10:33→23:26)
--- NOTE | 2017-06-19 11:58 | PN ---
Progress Note (short form) - Note Progress Note: PULMONARY Bowel movement yesterday with enema. Depressed. Last Vital Signs Temp Pulse Resp BP Pulse Ox 98.2 F 84 20 102/48 97 06/19/17 10:05 06/19/17 10:05 06/19/17 10:05 06/19/17 10:05 06/19/17 01:00 Gen: NAD, right facial droop Heart: irregular Lung: decreased breath sounds at the bases Abd: soft, nontender Ext: no edema CBC, BMP 06/19/17 06:20 06/19/17 06:20 Active Medications Albuterol Sulfate (Ventolin Hfa Inhaler -) 2 puff IH Q4H PRN PRN Reason: SHORT OF BREATH/WHEEZING Bacitracin/Polymyxin B Sulfate (Polysporin Ophthalmic Ointment -) 1 applic OD BID [facility] Last Admin: 06/19/17 10:30 Dose: 1 applic Docusate Sodium (Colace -) 100 mg PO TID [facility] Last Admin: 06/19/17 06:12 Dose: Not Given Enoxaparin Sodium (Lovenox -) 40 mg SQ DAILY [facility] Last Admin: 06/19/17 10:30 Dose: 40 mg Sodium Chloride (Normal Saline -) 1,000 mls @ 42 mls/hr IV ASDIR [facility] Last Admin: 06/18/17 13:25 Dose: 42 mls/hr Losartan Potassium (Cozaar -) 25 mg PO DAILY [facility] Last Admin: 06/19/17 10:28 Dose: Not Given Metoprolol Tartrate (Lopressor -) 25 mg PO BID [facility] Last Admin: 06/19/17 10:28 Dose: Not Given Pantoprazole Sodium (Protonix -) 40 mg PO BID [facility] Last Admin: 06/19/17 10:30 Dose: 40 mg Polyethylene Glycol (Miralax (For Daily Use) -) 17 gm PO BID [facility] Last Admin: 06/19/17 10:33 Dose: 17 gm Prednisone (Deltasone -) 20 mg PO DAILY [facility] Last Admin: 06/19/17 10:30 Dose: 20 mg Senna (Senna -) 2 tab PO HS [facility] Last Admin: 06/18/17 22:23 Dose: Not Given A/P Generalized Weakness Failure to Thrive COPD Chronic Hypoxic and Hypercapneic Respiratory Failure CAD Pulmonary HTN Atrial Fibrillation Lymphoma - continue gentle hydration - bowel regimen - O2 to keep SpO2 >90% - inhaled bronchodilators - PO as tolerated, will likely need dietary supplementation - hold lasix as he appears dry - physical therapy eval - may need short term rehab Problem List - Problems (1) Weakness Code(s): R53.1 - WEAKNESS (2) COPD (chronic obstructive pulmonary disease) Code(s): J44.9 - CHRONIC OBSTRUCTIVE PULMONARY DISEASE, UNSPECIFIED Qualifiers: COPD type: unspecified COPD Qualified Code(s): J44.9 - Chronic obstructive pulmonary disease, unspecified (3) CAD (coronary artery disease) Code(s): I25.10 - ATHSCL HEART DISEASE OF [place] CORONARY ARTERY W/O ANG PCTRS Qualifiers: Coronary Disease-Associated Artery/Lesion type: [place] artery [place] vs. transplanted heart: [place] heart Associated angina: without angina Qualified Code(s): I25.10 - Atherosclerotic heart disease of [place] coronary artery without angina pectoris (4) Chronic respiratory failure with hypoxia and hypercapnia Code(s): J96.11 - CHRONIC RESPIRATORY FAILURE WITH HYPOXIA; J96.12 - CHRONIC RESPIRATORY FAILURE WITH HYPERCAPNIA (5) Pulmonary HTN Code(s): I27.20 - PULMONARY HYPERTENSION, UNSPECIFIED (6) Failure to thrive in adult Code(s): R62.7 - ADULT FAILURE TO THRIVE
[2017-06-19] MEDS: SODIUM CHLORIDE 1,000 ML IV SCH (12:54)
--- NOTE | 2017-06-19 12:59 | PN ---
Teaching Attending Note Name of Resident: . SUBJECTIVE: Patient seen and examined, denies any dizziness or vertigo currently. Eating lunch. Has chronic cough with no recent change. Denies any fevers, chills, nausea, vomiting,abdominal pain or diarrhea. Reports was feeling too weak so was brought to the hospital. Has not been eating drinking well since last discharge, also was constipated before coming to the hospital which has now resolved. OBJECTIVE: Vital Signs Period Temp Pulse Resp BP Sys/Brian Pulse Ox Last 24 Hr 97.5 F-98.8 F 70-84 16-20 93-112/46-58 97 Intake & Output 06/16/17 06/17/17 06/18/17 06/19/17 23:59 23:59 23:59 23:59 Intake Total 550 294 Balance 550 294 Weight 175 lb 165 lb 8 oz General: sitting in bed having breakfast, in no acute distress HEENT: right facial and right eyelid droop, no active discharge or bleed in right external auditory canal CVs:S1S2 irregular Chest: CTAB, no rales or wheezing abdomen: soft, NT, ND, positive bowel sounds Extremities: no edema Neuro: AAOX3, Right facial and Right eyelid droop as above, otherwise non focal exam Active Medications Albuterol Sulfate (Ventolin Hfa Inhaler -) 2 puff IH Q4H PRN PRN Reason: SHORT OF BREATH/WHEEZING Artificial Tears (Artificial Tears) 1 drop OU Q4H [facility] Bacitracin/Polymyxin B Sulfate (Polysporin Ophthalmic Ointment -) 1 applic OD BID [facility] Last Admin: 06/19/17 10:30 Dose: 1 applic Docusate Sodium (Colace -) 100 mg PO TID [facility] Last Admin: 06/19/17 06:12 Dose: Not Given Enoxaparin Sodium (Lovenox -) 40 mg SQ DAILY [facility] Last Admin: 06/19/17 10:30 Dose: 40 mg Sodium Chloride (Normal Saline -) 1,000 mls @ 42 mls/hr IV ASDIR [facility] Last Admin: 06/19/17 12:54 Dose: 42 mls/hr Losartan Potassium (Cozaar -) 25 mg PO DAILY [facility] Last Admin: 06/19/17 10:28 Dose: Not Given Metoprolol Tartrate (Lopressor -) 25 mg PO BID [facility] Last Admin: 06/19/17 10:28 Dose: Not Given Pantoprazole Sodium (Protonix -) 40 mg PO BID [facility] Last Admin: 06/19/17 10:30 Dose: 40 mg Polyethylene Glycol (Miralax (For Daily Use) -) 17 gm PO BID [facility] Last Admin: 06/19/17 10:33 Dose: 17 gm Prednisone (Deltasone -) 20 mg PO DAILY [facility] Last Admin: 06/19/17 10:30 Dose: 20 mg Senna (Senna -) 2 tab PO HS [facility] Last Admin: 06/18/17 22:23 Dose: Not Given Laboratory Results - last 24 hr 06/19/17 06/19/17 06/19/17 06:20 06:20 06:20 WBC 2.4 L RBC 3.27 L Hgb 9.9 L Hct 30.1 L MCV 91.9 MCH 30.2 MCHC 32.8 RDW 16.0 H Plt Count 137 MPV 7.4 L Neutrophils % 77.4 Lymphocytes % 12.0 D Monocytes % 10.2 Eosinophils % 0.2 Basophils % 0.2 D Sodium 138 Potassium 4.3 Chloride 99 Carbon Dioxide 32 Anion Gap 7 L BUN 24 H Creatinine 1.1 Creat Clearance w eGFR > 60 Random Glucose 109 H D Calcium 8.3 L Magnesium 1.9 Total Bilirubin 1.2 H 1.1 H Direct Bilirubin 0.6 H D AST 8 L 8 L ALT 11 L 11 L Alkaline Phosphatase 69 D 67 Total Protein 6.8 6.8 Albumin 2.5 L 2.6 L Microbiology 06/18/17 12:45 Blood - Peripheral Venous Blood Culture - Preliminary NO GROWTH OBTAINED AFTER 24 HOURS, INCUBATION TO CONTINUE FOR 4 DAYS. 06/18/17 12:40 Blood - Peripheral Venous Blood Culture - Preliminary NO GROWTH OBTAINED AFTER 24 HOURS, INCUBATION TO CONTINUE FOR 4 DAYS. 06/18/17 06:00 Urine - Urine Clean Catch Urine Culture - Final NO GROWTH OBTAINED 06/18/17 07:36 Nasopharyngeal Swab Influenza Types A,B Antigen (LEA) - Final 06/18/17 07:36 Nasopharyngeal Swab - Final EKG afib, unchanged from prior ASSESSMENT AND PLAN: 87 yom with PMHx of COPD on 2L home oxygen, Afib (not on anti-coagulation), prior GIB, low grade lymphoma with pancytopena, CAD with 1 vessel disease, recent admission with Cardenas's palsy admitted with weakness, poor oral intake and constipation. -Weakness, no s/s concerning for infection. -Dehydration -Failure to thrive -Constipation -Afib not on anti-coagulation -CAd -HTN _recent Cardenas's palsy -H/o systolic/diastolic HF PLan: No focal s/s concerning for infection. Flu swab, blood/urine cultures neg so far. Gentle hydration, Hold lasix, close volume status monitoring Add artifical tears, eye patch, bacitracin ointment. Prednisone Continue home losartan, metoprolol. PT eval Dispo planning in 24 hours pending PT eval and placement arrangements as indicated. Code status: discussed with patient in detail, wants to be DNR/DNI (is consistent with his wishes expressed on prior admission with son witness), Same wishes expressed to RN this admission. DNR/DNI.
[2017-06-19] MEDS: ARTIFICIAL TEARS (POLYVINYL ALCOHOL 1.4%) OPTH DROPS OU SCH ×3 (14:08→23:18)
[2017-06-19] MEDS: SENNOSIDES 8.6MG TABLET (FP) PO SCH (23:27)
[2017-06-20] MEDS: ARTIFICIAL TEARS (POLYVINYL ALCOHOL 1.4%) OPTH DROPS OU SCH ×6 (01:52→22:08)
[2017-06-20] MEDS: DOCUSATE SODIUM 100 MG CAPSULE (FP) PO SCH ×3 (04:59→22:09)
--- NOTE | 2017-06-20 07:19 | MSN ---
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 He was discharged [facility] 3 wk ago 2/2 Cardenas's palsy. He was admitted 06/18 for dysphagia and B/L LE weakness. Pt was seen and examined today. He states b/l LE are weak, "don't think I can stand up now", reports he had chills on Tuesday night, and has "queasiness" which he attributes to chronic acid reflux. He states he was able to sit in a chair last night with the assistance of a nurse. He also has intermittent coughing producing about 1 tbsp cloudy yellow sputum without blood. He denies current chills, SOB, dysphagia, pain, or changes in appetite. Pt denies history of Lyme disease or illness prior to onset of Cardenas's palsy. OBJECTIVE Last Vital Signs Temp Pulse Resp BP Pulse Ox 98.5 F 82 20 132/58 100 06/20/17 06:00 06/20/17 06:00 06/20/17 06:00 06/20/17 06:00 06/20/17 03:00 General: Pt appears stated age, lying comfortably in bed on 2L O2 NC, in no acute distress. Face: Significant R sided facial droop. Asymmetrical brow raise. Intact to sensation all throughout. Eyes: EOMI, PERRLA, no APD, weakness keeping R eyelid closed against resistance. Significant R ectropion. Mild crusting noted on eyelashes. Mild conjunctival injection in R eye. L iris nevus noted. Throat: Moist mucus membranes. Neck: No cervical lymphadenopathy. Heart: Irregularly irregularly. No murmurs appreciated. Lungs: CTA B/L. No crackles, rhonchi or wheezing. Abdomen: Normoactive bowel sounds in all 4 quadrants. Nondistended. Nontender to light and deep palpation. No guarding or rigidity. Extremities: Dark discoloration noted on B/L dorsal hands. 2+ radial pulse b/l. 2+ DP pulse b/l. 5/5 motor strength with b/l arm flexion and extension. 5/5 motor strength with b/l hip flexion, knee extension, toe dorsiflexion, toe plantarflexion. CBC, BMP 06/20/17 06:30 06/20/17 06:30 Abnormal Lab Results 06/20/17 06/20/17 06:30 06:30 WBC 3.1 L RBC 3.61 L Hgb 11.0 L D Hct 33.4 L RDW 17.0 H Monocytes % (Manual) 16 H* Nucleated RBC % 1 H Carbon Dioxide 34 H Anion Gap 5 L BUN 22 H Intake & Output 06/17/17 06/18/17 06/19/17 06/20/17 23:59 23:59 23:59 23:59 Intake Total 550 1728 374 Output Total 400 Balance 550 1728 -26 Weight 175 lb 165 lb 8 oz 165 lb 8 oz Active Medications Generic Name Dose Route Start Last Admin Trade Name Freq PRN Reason Stop Dose Admin Albuterol Sulfate 2 puff 06/18/17 11:09 Ventolin Hfa Inhaler - IH Q4H PRN SHORT OF BREATH/WHEEZING Artificial Tears 1 drop 06/19/17 12:45 06/20/17 04:59 Artificial Tears OU 1 drop Q4H [facility] Administration Bacitracin/Polymyxin B Sulfate 1 applic 06/18/17 22:00 06/19/17 23:18 Polysporin Ophthalmic Ointment - OD 1 applic BID [facility] Administration Docusate Sodium 100 mg 06/18/17 14:00 06/20/17 04:59 Colace - PO 100 mg TID [facility] Administration Enoxaparin Sodium 40 mg 06/19/17 10:00 06/19/17 10:30 Lovenox - SQ 40 mg DAILY [facility] Administration Sodium Chloride 1,000 mls @ 42 mls/hr 06/18/17 12:30 06/19/17 12:54 Normal Saline - IV 42 mls/hr ASDIR [facility] Administration Losartan Potassium 25 mg 06/18/17 11:15 06/19/17 10:28 Cozaar - PO Not Given DAILY [facility] Metoprolol Tartrate 25 mg 06/18/17 22:00 06/19/17 23:18 Lopressor - PO 25 mg BID [facility] Administration Pantoprazole Sodium 40 mg 06/18/17 22:00 06/19/17 23:18 Protonix - PO 40 mg BID [facility] Administration Polyethylene Glycol 17 gm 06/18/17 22:00 06/19/17 23:26 Miralax (For Daily Use) - PO Not Given BID [facility] Prednisone 20 mg 06/18/17 18:30 06/19/17 10:30 Deltasone - PO 20 mg DAILY [facility] Administration Senna 2 tab 06/18/17 22:00 06/19/17 23:27 Senna - PO Not Given HS [facility] [place] ASSESSMENT 87 y/o M with PMHx Cardenas's palsy, HTN, HLD, afib not on anticoagulation 2/2 recurrent GI bleed, diastolic heart failure, CAD, COPD on home O2, pulmonary HTN , CKD, and 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 PLAN 1. Dysphagia 2/2 Cardenas's palsy - Pureed diet - Dietary evaluation. - Barium swallow ordered; f/u results - Monitor I&O; daily weights 2. Generalized motor weakness - PT evaluation - Has walker and cane at home; will need rehab after discharge 3. R eye conjunctivitis 2/2 Cardenas's palsy - continue R eye shield HS for R ectropion, artificial tears, polysporin ophthalmic ointment - Tue. appointment w/ student teaching coordinator Dr. Treviño 4. Constipation - Continue miralax PO 17 g bid, colace 100 mg PO TID, senna 2 tab PO HS 5. HTN - Continue cozaar 25 mg PO daily - Hypotensive on arrival; currently on IV NS 1000 mls @42mls/hr 6. Cardenas's palsy - Continue Deltasone 20 mg PO daily 7. Afib/CAD - Lopressor 25 mg PO bid 8. DHF - Continue to hold Lasix, Spironolactone - D/C fluids and resume Lasix in 1 week - Monitor BP and fluid status 9. COPD - continue 2L O2 NC; goal SpO2>90% - Ventolin inhaler PRN - Pulmonary following. 10. Chronic pancytopenia 2/2 low grade lymphoma - Monitor CBC; WBC trending up to baseline. 11. CKD - monitor BUN/Cr; currently stable 12. DVT PPX - Lovenox 40 mg SQ daily, WILLIAMS hose B/L, ambulation with PT 13. Fluids, Nutrition - NS 1000 mL @42 mls/hr - Nutrition: Pureed diet
[2017-06-20 07:31] LABS: MCH 30.4 pg (25.7-33.7); MCHC 32.9 g/dl (32.0-35.9); MEAN CELL VOLUME 92.5 fl (80-96); MEAN PLT VOLUME 7.6 fl (7.5-11.1); PLATELET COUNT 165 K/MM3 (134-434); WHITE BLOOD COUNT 3.1 K/mm3 (4.0-10.0)
[2017-06-20 08:14] LABS: ANION GAP 5 (8-16); CO2 34 mmol/L (21-32); CREATININE 1.1 mg/dL (0.7-1.3); GLUCOSE,RANDOM 103 mg/dL (74-106)
--- NOTE | 2017-06-20 08:42 | PN ---
Physical Exam: SUBJECTIVE: Patient seen and examined at bedside. Patient states that he has some mild shortness of breath and weakness, but he states it has significantly improved over the past day. Denies chest pain, fevers, chills, nausea, vomiting , diarrhea. Patient is able to tolerate PO diet. OBJECTIVE: Vital Signs Period Temp Pulse Resp BP Sys/Brian Pulse Ox Last 24 Hr 97.5 F-98.5 F 61-86 18-20 102-132/48-62 97-100 GENERAL: The patient is awake, alert, and fully oriented, in no acute distress. HEAD: Normal with no signs of trauma. EYES: R sclera moderately erythematous, R eye open and unable to close. ENT: Ears normal, nares patent, oropharynx clear without exudates, moist mucous membranes. NECK: Trachea midline, full range of motion, supple. LUNGS: Breath sounds equal, clear to auscultation bilaterally, no wheezes, no crackles, no accessory muscle use. HEART: Regular rate and rhythm, S1, S2 without murmur, rub or gallop. ABDOMEN: Soft, nontender, nondistended, normoactive bowel sounds, no guarding, no rebound, no hepatosplenomegaly, no masses. EXTREMITIES: 2+ pulses, warm, well-perfused, no edema. NEUROLOGICAL: Cranial nerve VII on the R is not currently functional, facial droop present. Rest of cranial nerves intact. PSYCH: Normal mood, normal affect. SKIN: Warm, dry, normal turgor, no rashes or lesions noted Laboratory Results - last 24 hr 06/20/17 06/20/17 06:30 06:30 WBC 3.1 L RBC 3.61 L Hgb 11.0 L D Hct 33.4 L MCV 92.5 MCH 30.4 MCHC 32.9 RDW 17.0 H Plt Count 165 D MPV 7.6 Neutrophils % No Result Required. Lymphocytes % No Result Required. Sodium 138 Potassium 4.4 Chloride 99 Carbon Dioxide 34 H Anion Gap 5 L BUN 22 H Creatinine 1.1 Random Glucose 103 Calcium 9.0 Active Medications Generic Name Dose Route Start Last Admin Trade Name Freq PRN Reason Stop Dose Admin Albuterol Sulfate 2 puff 06/18/17 11:09 Ventolin Hfa Inhaler - IH Q4H PRN SHORT OF BREATH/WHEEZING Artificial Tears 1 drop 06/19/17 12:45 06/20/17 04:59 Artificial Tears OU 1 drop Q4H [facility] Administration Bacitracin/Polymyxin B Sulfate 1 applic 06/18/17 22:00 06/19/17 23:18 Polysporin Ophthalmic Ointment - OD 1 applic BID [facility] Administration Docusate Sodium 100 mg 06/18/17 14:00 06/20/17 04:59 Colace - PO 100 mg TID [facility] Administration Enoxaparin Sodium 40 mg 06/19/17 10:00 06/19/17 10:30 Lovenox - SQ 40 mg DAILY [facility] Administration Sodium Chloride 1,000 mls @ 42 mls/hr 06/18/17 12:30 06/19/17 12:54 Normal Saline - IV 42 mls/hr ASDIR [facility] Administration Losartan Potassium 25 mg 06/18/17 11:15 06/19/17 10:28 Cozaar - PO Not Given DAILY [facility] Metoprolol Tartrate 25 mg 06/18/17 22:00 06/19/17 23:18 Lopressor - PO 25 mg BID [facility] Administration Pantoprazole Sodium 40 mg 06/18/17 22:00 06/19/17 23:18 Protonix - PO 40 mg BID [facility] Administration Polyethylene Glycol 17 gm 06/18/17 22:00 06/19/17 23:26 Miralax (For Daily Use) - PO Not Given BID [facility] Prednisone 20 mg 06/18/17 18:30 06/19/17 10:30 Deltasone - PO 20 mg DAILY [facility] Administration Senna 2 tab 06/18/17 22:00 06/19/17 23:27 Senna - PO Not Given HS [facility] ASSESSMENT/PLAN: 87 year old male with a pmh of HTN, HLD, CAD, Atrial fibrillation not on AC due to hx of GI bleeds, heart failure with preserved ejection fraction, pulmonary HTN, COPD on home O2, chronic pancytopenia, CKD, and bells palsy is admitted to the hospital for weakness and decreased PO intake. #Dysphagia 2/2 [place] Palsy: possibly secondary to quiles's palsy, patient states that there is occasional regurgitation of his food -encourage nutitrional supplementation -f/u speech and swallow evaluation -f/u nutrition consultation -PT evaluation -continue prednisone #Weakness: seems to be resolving today #R Eye Erythema and [place] Palsy Affecting R Eye: -continue polymixin B ointment -continue artificial tears -f/u as outpatient with structural analyst Dr. Treviño #Hypertension: controlled today 120/60 -continue cozaar 25 PO daily -continue lopressor 25mg PO BID -lasix held -hold fluids #COPD: patient is mildly SOB today -continue duonebs PRN #Constipation: not an acute issue -continue Senna -continue miralax -continue colace #Atrial fibrillation: controlled -no anticoagulation due to history of GI bleeds -continue metoprolol to help rate control #FEN hold fluids replete electrolytes as necessary f/u barium swallow for dietary reccs Proph Lovenox 40mg subq Disposition Continue to monitor on med-surg Discharge planning, will need to go to SNF Visit type - Emergency Visit Emergency Visit: No - New Patient This patient is new to me today: Yes Date on this admission: 06/20/17 - Critical Care Critical Care patient: No
[2017-06-20 10:01] LABS: ACANTHOCYTES 0; ANISOCYTOSIS 0; BURR CELLS 0; CABBOT RINGS 0; HELMET CELLS 0; HOWELL-JOLLY BODIES 0; HYPOCHROMIA 0; MACROCYTOSIS 0; METAMYELOCYTE 0 % (0-2); MICROCYTOSIS 0; MYELOCYTE 0 % (0-2); OVALOCYTE 0; PLATELET ESTIMATE NORMAL; POIKILOCYTOSIS 0; POLYCHROMASIA 0; REACTIVE LYMPHOCYTES 0 % (0-80); SCHISTOCYTES 0; SPHEROCYTE 0; STOMATOCYTE 0; TARGET CELLS 0; TEAR DROP CELLS 0; TOXIC GRANULATION 0
[2017-06-20] MEDS ORDERED: PT OWN MED DRAWER 7, Y5N ONE (10:04)
[2017-06-20] MEDS: POLYETHYLENE GLYCOL 3350 119 GM BTL PO SCH ×2 (10:10→22:22)
[2017-06-20] MEDS: PANTOPRAZOLE 40 MG TABLET (FP) PO SCH ×2 (10:10→22:09)
[2017-06-20] MEDS: predniSONE 20 MG TABLET (UD) PO SCH (10:10)
[2017-06-20] MEDS: ENOXAPARIN NA (PORCINE) 40 MG/0.4 ML DISP.SYRIN SQ SCH (10:10)
[2017-06-20] MEDS: LOSARTAN POTASSIUM 25 MG TABLET PO SCH (10:10)
[2017-06-20] MEDS: METOPROLOL TARTRATE 25 MG TABLET (FP) PO SCH ×2 (10:10→22:09)
[2017-06-20] MEDS: BACITRACIN/POLYMYXIN OPH OINT 3.5 GM TUBE OD SCH ×2 (10:17→22:09)
[2017-06-20 10:26] LABS: NUCLEATED RED BLOOD CELL 1 % (0-0)
[2017-06-20 11:32] LABS: TOTAL CELLS COUNTED 99
--- NOTE | 2017-06-20 11:41 | PN ---
Teaching Attending Note Name of Resident: Heath Warren ATTENDING PHYSICIAN STATEMENT Time of evaluation: 9:30 AM I saw and evaluated the patient. I reviewed the resident's note and discussed the case with the resident. I agree with the resident's findings and plan as documented. SUBJECTIVE: Patient seen and examined. weakness improved, eating OK, no new dyspnea or new complaints. OBJECTIVE: Vital Signs Period Temp Pulse Resp BP Sys/Brian Pulse Ox Last 24 Hr 97.5 F-98.5 F 61-86 18-20 113-132/53-62 97-100 Intake & Output 06/17/17 06/18/17 06/19/17 06/20/17 23:59 23:59 23:59 23:59 Intake Total 550 1728 374 Output Total 400 Balance 550 1728 -26 Weight 175 lb 165 lb 8 oz 165 lb 8 oz General: sitting in bed in no acute distress CVS:S1S2 irregular Chest: no rales or wheezing, good air entry bilaterally Abdomen: soft, NT, ND, positive bowels ounds HEENT: right facial and right eye droop unchanged Active Medications Albuterol Sulfate (Ventolin Hfa Inhaler -) 2 puff IH Q4H PRN PRN Reason: SHORT OF BREATH/WHEEZING Artificial Tears (Artificial Tears) 1 drop OU Q4H [facility] Last Admin: 06/20/17 10:17 Dose: 1 drop Bacitracin/Polymyxin B Sulfate (Polysporin Ophthalmic Ointment -) 1 applic OD BID [facility] Last Admin: 06/20/17 10:17 Dose: 1 applic Docusate Sodium (Colace -) 100 mg PO TID [facility] Last Admin: 06/20/17 04:59 Dose: 100 mg Enoxaparin Sodium (Lovenox -) 40 mg SQ DAILY [facility] Last Admin: 06/20/17 10:10 Dose: 40 mg Losartan Potassium (Cozaar -) 25 mg PO DAILY [facility] Last Admin: 06/20/17 10:10 Dose: 25 mg Metoprolol Tartrate (Lopressor -) 25 mg PO BID [facility] Last Admin: 06/20/17 10:10 Dose: 25 mg Pantoprazole Sodium (Protonix -) 40 mg PO BID [facility] Last Admin: 06/20/17 10:10 Dose: 40 mg Polyethylene Glycol (Miralax (For Daily Use) -) 17 gm PO BID [facility] Last Admin: 06/20/17 10:10 Dose: Not Given Prednisone (Deltasone -) 20 mg PO DAILY [facility] Last Admin: 06/20/17 10:10 Dose: 20 mg Senna (Senna -) 2 tab PO HS [facility] Last Admin: 06/19/17 23:27 Dose: Not Given Laboratory Results - last 24 hr 06/20/17 06/20/17 06:30 06:30 WBC 3.1 L RBC 3.61 L Hgb 11.0 L D Hct 33.4 L MCV 92.5 MCH 30.4 MCHC 32.9 RDW 17.0 H Plt Count 165 D MPV 7.6 Total Counted 99 Neutrophils % No Result Required. Neutrophils % (Manual) 70.7 Band Neutrophils % 1.0 Lymphocytes % No Result Required. Lymphocytes % (Manual) 11.1 D Monocytes % (Manual) 16 H* Eosinophils % (Manual) 1.0 Basophils % (Manual) 0.0 Myelocytes % (Man) 0 Nucleated RBC % 1 H Metamyelocytes 0 Hypochromia 0 Toxic Granulation 0 Dohle Bodies 0 Platelet Estimate Normal Polychromasia 0 Poikilocytosis 0 Basophilic Stippling 0 Anisocytosis 0 Microcytosis 0 Macrocytosis 0 Spherocytes 0 Sickle Cells 0 Target Cells 0 Tear Drop Cells 0 Ovalocytes 0 Stomatocytes 0 Helmet Cells 0 [place] Bodies 0 [place] Rings 0 [place] Cells 0 Acanthocytes (Spur) 0 Fragmented RBCs 0 Schistocytes 0 Sodium 138 Potassium 4.4 Chloride 99 Carbon Dioxide 34 H Anion Gap 5 L BUN 22 H Creatinine 1.1 Random Glucose 103 Calcium 9.0 Microbiology 06/18/17 12:45 Blood - Peripheral Venous Blood Culture - Preliminary NO GROWTH OBTAINED AFTER 24 HOURS, INCUBATION TO CONTINUE FOR 4 DAYS. 06/18/17 12:40 Blood - Peripheral Venous Blood Culture - Preliminary NO GROWTH OBTAINED AFTER 24 HOURS, INCUBATION TO CONTINUE FOR 4 DAYS. 06/18/17 06:00 Urine - Urine Clean Catch Urine Culture - Final NO GROWTH OBTAINED 06/18/17 07:36 Nasopharyngeal Swab Influenza Types A,B Antigen (LEA) - Final 06/18/17 07:36 Nasopharyngeal Swab - Final ASSESSMENT AND PLAN: 87 yom with PMHx of COPD on 2L home oxygen, Afib (not on anti-coagulation), prior GIB, low grade lymphoma with pancytopena, CAD with 1 vessel disease, recent admission with Cardenas's palsy admitted with weakness, poor oral intake and constipation. -Weakness, no s/s concerning for infection. -Dehydration -Failure to thrive -Constipation -Afib not on anti-coagulation -CAd -HTN _recent Cardenas's palsy -H/o systolic/diastolic HF PLan: No focal s/s concerning for infection. Flu swab, blood/urine cultures neg so far. D/c IVF, encourage oral intake, dietitician consult, Speech swallow eval noted, for MBS, can be done at [facility] if patient doing well. Hold lasix, close volume status monitoring Resume in 24-48 hours if PO intake well and based on volume status. Artifical tears, eye patch, bacitracin ointment. Prednisone Continue home losartan, metoprolol. PT eval Dispo planning in 24 hours pending PT eval and placement arrangements as indicated. Code status: discussed with patient in detail, wants to be DNR/DNI (is consistent with his wishes expressed on prior admission with son witness), Same wishes expressed to RN this admission. DNR/DNI.
--- NOTE | 2017-06-20 12:55 | CONSULT ---
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 Patient states that since his discharge from the hospital three weeks ago he has decreased appetite, difficulty swallowing, and coughing with PO intake. He states he has become progressively weaker although he has been working with a physical therapist at home and is able to perform the exercises asked of him. Last night he was so weak he could not stand and felt he needed to come to the hospital. Patient also complains of constipation. pt stated he can swallow - but his food then comes back up on him pt was previously following a regular diet current diet:Dysphagia Puree - [place] Consistency Selected Entries 06/18/17 06/18/17 06/19/17 14:52 21:33 03:00 Breakfast Lunch 75% Supper 50% Temperature 97.5 F L 06/19/17 06/19/17 06/19/17 07:00 10:05 11:08 Breakfast 100% Lunch Supper Temperature 98.0 F 98.2 F 06/19/17 06/19/17 06/19/17 14:23 16:48 21:00 Breakfast Lunch 100% Supper Temperature 98.0 F 97.9 F 97.5 F L 06/19/17 06/20/17 06/20/17 22:03 02:00 06:00 Breakfast Lunch Supper 25% Temperature 97.6 F 98.5 F 06/20/17 09:52 Breakfast 50% Lunch Supper Temperature Pt reports heartburn/food coming up twice daily. He expectorates phlegm several times daily. Pt tolerated diet at bedside during last admission, and MBS was not performed. History Source: Patient, Medical Record Limitations to Obtaining History: No Limitations - Past Medical History Cardiovascular: Yes: AFIB, CAD, CHF ([place] on chronic LV systolic and diastolic heart failure), Pulmonary Hypertension, Other (REPAIR OF LARGE ASD) Pulmonary: Yes: COPD, Other (PULMONARY HYPERTENSION). No: Cancer, O2 Dependent , Previously Intubated, Pulmonary Embolus Heme/Onc: Yes: Other (PATIENT IS ON COUMADIN). No: B12 Deficiency, Bleeding Disorder Musculoskeletal: Yes: Osteoarthritis. No: Chronic low back pain ENT: Yes: Other (H/O EPISTAXSIS WITH ER VISTS TWICE OVER PAST 12 MONTHS.) - Smoking History Smoking history: Unknown if ever smoked Have you smoked in the past 12 months: No If you are a former smoker, when did you quit?: 1984 - Alcohol/Substance Use Hx Alcohol Use: No History of Substance Use: reports: None - Social History ADL: Family Assistance History of Recent Travel: No History - Admission Reason For Visit: WEAKNESS - Diagnostics X-ray: Report Reviewed CT Scan: Report Reviewed - General Mental Status: Alert and Oriented, Awake and Alert, Able to Follow Commands Attention: Intact Ability to Follow Directions: Good Head/Neck Control: WFL - Hearing Hearing: Functional Speech Evaluation - Communication Primary Language: [place] Communication: Yes: Within Normal Limits - Speech Characteristics Voice Loudness: Normal Voice Pitch: Yes: Normal Voice Phonatory-based Quality: Yes: Normal Speech Pattern: Normal Nasal Resonance: Normal Articulation: Yes: Imprecise Rate of Speech: Intact - Language/Auditory Comprehension Follows: Yes: 1 Stage Simple Commands - Language/Verbal Expression Able to Respond to Simple Queries: Yes: WNL Able to Communicate Wants and Needs: Yes: WNL Functional Communication Status: Yes: WNL - Swallow Evaluation/Bedside Assessment Current Nutritional Intake: Dysphagia Pureed, [place] Textured Liquids Oral Secretions: Yes: WFL (Pt reports expectorating phlegm throughout the day) Facial Symmetry at Rest: Facial Droop Right (r eye/facial paralysis-Cardenas's Palsy ) Facial Symmetry on Retraction: Facial Droop Right Pucker Lips: Droops Right Smile: Droops Right Lingual Movement: Symmetric Lingual Speed of Movement: Normal Lingual Movement Strgth Against Opposition: Normal Lingual Movement Characteristics: Normal Velopharyngeal Movement: Normal Laryngeal Movement: Able to Palpate Rate of Intake: WFL Bolus Size: WFL Chewing: Impaired (missing dentition. fair mastication) Oral Prep Time: WFL A-P Transit: WFL Pocketing: None Timing of Swallow: WFL Coughing/Throat Clear: No Change in Voice: No Recommendations - Speech Evaluation, Impression/Plan Impression: Pt c/o of heartburn/food coming up. Poor po intake with 50 lb weight loss, per pt. - Dysphagia Impressions/Plan Dysphagia Impressions: Ongoing Evaluation *Silent aspiration: cannot be R/O at bedside Recommendations: ROBB Roberts
--- NOTE | 2017-06-20 12:59 | PN ---
Progress Note (short form) - Note Progress Note: PULMONARY AWAKE/ALERT VSS/AFEBRILE ANICTERIC/RIGHT FACIAL NERVE PALSY(WOOTEN'S) CLEAR S1S2 IRREGULAR BS+ SOFT NO EDEMA LABS/MEDS/IMAGES REVIEWED Generalized Weakness Failure to Thrive COPD Chronic Hypoxic and Hypercapneic Respiratory Failure CAD Pulmonary HTN Atrial Fibrillation Lymphoma - encourage oral intake - bowel regimen - O2 to keep SpO2 >90% - inhaled bronchodilators - PO as tolerated, will likely need dietary supplementation - hold lasix - physical therapy eval - needs short term rehab Felix ELIZABETH MD
--- NOTE | 2017-06-20 14:54 | CON.GI ---
Consult Consult Specialty:: GI Referred by:: Dr. Pennington Reason for Consultation:: Esophageal Stricture - History of Present Illness History of Present Illness: Chart reviewed. Events and findings noted. 87 yom with HTN, HLD, CAD, Atrial fibrillation not on AC due to hx of GI bleeds (hospitalization in 2010), heart failure with preserved ejection fraction, pulmonary HTN, COPD on home O2, chronic pancytopenia, CKD, and bells palsy is admitted to the hospital for weakness and decreased PO intake. On speech and swallow study found to have delayed esophageal emptying and retention of contrast. History of food regurgitation. CT chest 10/2016 - no chest-esophagus- related findings. S/p Median sternotomy. Question of esophageal stricture and need for EGD. - Past Medical History Cardio/Vascular: Yes: AFIB, CAD, CHF ([place] on chronic LV systolic and diastolic heart failure), Pulmonary Hypertension, Other (REPAIR OF LARGE ASD) Pulmonary: Yes: COPD, Other (PULMONARY HYPERTENSION). No: Cancer, O2 Dependent , Previously Intubated, Pulmonary Embolus Musculoskeletal: Yes: Osteoarthritis. No: Chronic low back pain ENT: Yes: Other (H/O EPISTAXSIS WITH ER VISTS TWICE OVER PAST 12 MONTHS.) - Alcohol/Substance Use Hx Alcohol Use: No History of Substance Use: reports: None - Smoking History Smoking history: Unknown if ever smoked Have you smoked in the past 12 months: No If you are a former smoker, when did you quit?: 1984 - Social History ADL: Family Assistance History of Recent Travel: No Home Medications - Allergies Allergies/Adverse Reactions: Allergies Allergy/AdvReac Type Severity Reaction Status Date / Time No Known Allergies Allergy Verified 06/18/17 02:40 - Home Medications Home Medications: Ambulatory Orders Losartan Potassium [Cozaar] 25 mg PO DAILY 10/18/16 Albuterol Sulfate Inhaler - [Ventolin HFA Inhaler -] 2 puff IH Q4H PRN #30 inhaler 11/05/16 Metoprolol Tartrate [Lopressor -] 25 mg PO BID #60 tablet 11/05/16 Pantoprazole Sodium [Protonix -] 40 mg PO BID #60 tab 11/05/16 Furosemide [Lasix -] 40 mg PO Q48H 05/21/17 Pantoprazole Sodium [Protonix -] 40 mg PO BID 06/18/17 Polyethylene Glycol 3350 [Miralax 119 gm Btl -] 17 gm PO DAILY PRN 06/18/17 Prednisone [Deltasone -] 20 mg PO DAILY 06/18/17 Spironolactone 25 mg PO BID 06/18/17 Family Disease History - Family Disease History Family Disease History: Heart Disease: Father, Sister, CA: Brother (CVA, PROSTATE CANCE,LUNG CANCER,PANCREATIC CANCER), Other: Brother Physical Exam-GI Vital Signs: Vital Signs Temperature 98.5 F 06/20/17 06:00 Pulse Rate 82 06/20/17 06:00 Respiratory Rate 20 06/20/17 06:00 Blood Pressure 132/58 06/20/17 06:00 O2 Sat by Pulse Oximetry (%) 100 06/20/17 03:00 Labs: CBC, BMP 06/20/17 06:30 06/20/17 06:30 INR, PTT INR 1.17 (0.82-1.09) H 06/18/17 03:35 Imaging - Results Other: Other (Modified speech and swallow study - retined contrast in the esophagus) Problem List - Problems (1) Abnormal findings on radiological examination of gastrointestinal tract Code(s): R93.3 - ABNORMAL FINDINGS ON DX IMAGING OF PRT DIGESTIVE TRACT Assessment/Plan Delayed esophageal emptying with retained contrast in distal esophagus on evaluation for poor po intake and history of regurgitating undigested food. The patient is well versed in his condition. The symptoms and findings warrant direct visualization. A chest CT will be helpful if external compression is suspected on EGD. NPO after midnight. EGD on Tuesday. Additional recommendation after the EGD. Discussed with the patient.
--- NOTE | 2017-06-20 15:06 | EKG ---
Test Reason : Blood Pressure : / mmHG Vent. Rate : 090 BPM Atrial Rate : 337 BPM P-R Int : 000 ms QRS Dur : 166 ms QT Int : 420 ms P-R-T Axes : 096 077 -32 degrees QTc Int : 513 ms ATRIAL FLUTTER WITH VARIABLE A-V BLOCK WITH PREMATURE VENTRICULAR OR ABERRANTLY CONDUCTED COMPLEXES RIGHT BUNDLE BRANCH BLOCK INFERIOR INFARCT (CITED ON OR BEFORE 21-MAY-2017) T WAVE ABNORMALITY, CONSIDER LATERAL ISCHEMIA ABNORMAL ECG WHEN COMPARED WITH ECG OF 18-JUN-2017 05:25, ATRIAL FLUTTER HAS REPLACED ATRIAL FIBRILLATION T WAVE INVERSION NOW EVIDENT IN INFERIOR LEADS QT HAS LENGTHENED Confirmed by BUCK DANIELS, QUIN ([id number]) on 06/20/2017 3:05:51 PM Referred By: Deepa GÓMEZ Confirmed By:QUIN JANE MD
[2017-06-20] MEDS: SENNOSIDES 8.6MG TABLET (FP) PO SCH (22:10)
[2017-06-21] MEDS: ARTIFICIAL TEARS (POLYVINYL ALCOHOL 1.4%) OPTH DROPS OU SCH ×6 (00:37→22:36)
[2017-06-21] MEDS: DOCUSATE SODIUM 100 MG CAPSULE (FP) PO SCH ×3 (05:43→22:36)
--- NOTE | 2017-06-21 06:47 | MSN ---
Progress Note (short form) - Note Progress Note: Last night at 19:49, patient obtained 3 skin tears to right upper arm when he became unsteady while ambulating with PT. Dry dressing and steri strips applied to area. Last Vital Signs Temp Pulse Resp BP Pulse Ox 97.5 F L 79 18 121/54 100 06/20/17 22:00 06/20/17 22:00 06/20/17 22:00 06/20/17 22:00 06/20/17 21:00
[2017-06-21 09:24] LABS: MCH 30.3 pg (25.7-33.7); MCHC 32.9 g/dl (32.0-35.9); MEAN PLT VOLUME 7.2 fl (7.5-11.1); PLATELET COUNT 171 K/MM3 (134-434); RDW 16.8 % (11.9-15.9); WHITE BLOOD COUNT 2.3 K/mm3 (4.0-10.0)
[2017-06-21 09:51] LABS: ANION GAP 5 (8-16); CALCIUM 8.5 mg/dL (8.5-10.1); CO2 34 mmol/L (21-32); GLUCOSE,RANDOM 93 mg/dL (74-106)
[2017-06-21] MEDS: POLYETHYLENE GLYCOL 3350 119 GM BTL PO SCH ×2 (10:54→22:38)
[2017-06-21] MEDS: ENOXAPARIN NA (PORCINE) 40 MG/0.4 ML DISP.SYRIN SQ SCH (10:54)
[2017-06-21] MEDS: BACITRACIN/POLYMYXIN OPH OINT 3.5 GM TUBE OD SCH ×2 (10:55→22:36)
--- NOTE | 2017-06-21 11:24 | PN ---
Progress Note (short form) - Note Progress Note: PULMONARY No current complaints. For endoscopy today. Last Vital Signs Temp Pulse Resp BP Pulse Ox 97.5 F L 79 18 121/54 100 06/20/17 22:00 06/20/17 22:00 06/20/17 22:00 06/20/17 22:00 06/20/17 21:00 Gen: NAD, right facial droop Heart: irregular Lung: decreased breath sounds at the bases Abd: soft, nontender Ext: no edema CBC, BMP 06/21/17 09:00 06/21/17 09:00 Active Medications Albuterol Sulfate (Ventolin Hfa Inhaler -) 2 puff IH Q4H PRN PRN Reason: SHORT OF BREATH/WHEEZING Artificial Tears (Artificial Tears) 1 drop OU Q4H [facility] Last Admin: 06/21/17 10:54 Dose: 1 drop Bacitracin/Polymyxin B Sulfate (Polysporin Ophthalmic Ointment -) 1 applic OD BID [facility] Last Admin: 06/21/17 10:55 Dose: 1 applic Docusate Sodium (Colace -) 100 mg PO TID [facility] Last Admin: 06/21/17 05:43 Dose: Not Given Enoxaparin Sodium (Lovenox -) 40 mg SQ DAILY [facility] Last Admin: 06/21/17 10:54 Dose: Not Given Losartan Potassium (Cozaar -) 25 mg PO DAILY [facility] Last Admin: 06/20/17 10:10 Dose: 25 mg Metoprolol Tartrate (Lopressor -) 25 mg PO BID [facility] Last Admin: 06/20/17 22:09 Dose: 25 mg Pantoprazole Sodium (Protonix -) 40 mg PO BID [facility] Last Admin: 06/20/17 22:09 Dose: 40 mg Polyethylene Glycol (Miralax (For Daily Use) -) 17 gm PO BID [facility] Last Admin: 06/21/17 10:54 Dose: Not Given Prednisone (Deltasone -) 20 mg PO DAILY [facility] Last Admin: 06/20/17 10:10 Dose: 20 mg Senna (Senna -) 2 tab PO HS [facility] Last Admin: 06/20/17 22:10 Dose: 2 tab A/P Generalized Weakness Failure to Thrive COPD Chronic Hypoxic and Hypercapneic Respiratory Failure CAD Pulmonary HTN Atrial Fibrillation Lymphoma - for endoscopy today - bowel regimen - O2 to keep SpO2 >90% - inhaled bronchodilators - physical therapy - will need short term rehab Problem List - Problems (1) Weakness Code(s): R53.1 - WEAKNESS (2) COPD (chronic obstructive pulmonary disease) Code(s): J44.9 - CHRONIC OBSTRUCTIVE PULMONARY DISEASE, UNSPECIFIED Qualifiers: COPD type: unspecified COPD Qualified Code(s): J44.9 - Chronic obstructive pulmonary disease, unspecified (3) CAD (coronary artery disease) Code(s): I25.10 - ATHSCL HEART DISEASE OF [place] CORONARY ARTERY W/O ANG PCTRS Qualifiers: Coronary Disease-Associated Artery/Lesion type: [place] artery [place] vs. transplanted heart: [place] heart Associated angina: without angina Qualified Code(s): I25.10 - Atherosclerotic heart disease of [place] coronary artery without angina pectoris (4) Chronic respiratory failure with hypoxia and hypercapnia Code(s): J96.11 - CHRONIC RESPIRATORY FAILURE WITH HYPOXIA; J96.12 - CHRONIC RESPIRATORY FAILURE WITH HYPERCAPNIA (5) Pulmonary HTN Code(s): I27.20 - PULMONARY HYPERTENSION, UNSPECIFIED (6) Failure to thrive in adult Code(s): R62.7 - ADULT FAILURE TO THRIVE
[2017-06-21] MEDS ORDERED: PROPOFOL 20 ML ONE ×2 (13:56)
--- NOTE | 2017-06-21 14:27 | PROC ---
Endoscopy Procedure Endoscopy procedure completed. Please see scanned procedure report. Smooth, muscular narrowing just above GEJ was noted and stretched with through- the-scope balloon without any immediate complications. No obvious intramural lesions noted. Normal proximal small bowel and the stomach noted. No biopsies taken. Soft diet tonight.
[2017-06-21] MEDS ORDERED: ALBUTEROL SO4 0.083% IH SOL 2.5 MG/3 ML VIAL.NEB. NEB PRN (15:10)
[2017-06-21] MEDS ORDERED: ALBUTEROL SO4 2.5/IPRATROPIUM 0.5 INH SOL 3 ML VIAL.NEB. NEB PRN (15:14)
--- NOTE | 2017-06-21 15:33 | PN ---
Physical Exam: SUBJECTIVE: Patient seen and examined at bedside. Denies any current complaints. Patient was kept NPO for EGD this morning. OBJECTIVE: Vital Signs Period Temp Pulse Resp BP Sys/Brian Pulse Ox Last 24 Hr 97.5 F-98.2 F 79-91 14-76 111-130/54-62 94-100 GENERAL: The patient is awake, alert, and fully oriented, in no acute distress. HEAD: Normal with no signs of trauma. EYES: R sclera moderately erythematous improved since yesterday, R eye open and unable to close - eyepatch present on R eye. ENT: Ears normal, nares patent, oropharynx clear without exudates, moist mucous membranes. LUNGS: Breath sounds equal, clear to auscultation bilaterally, no wheezes, no crackles, no accessory muscle use. HEART: Regular rate and rhythm, S1, S2 without murmur, rub or gallop. ABDOMEN: Soft, nontender, nondistended, normoactive bowel sounds, no guarding, no rebound, no hepatosplenomegaly, no masses. NEUROLOGICAL: Cranial nerve VII on the R is not currently functional, facial droop present. Rest of cranial nerves intact. SKIN: Warm, dry, normal turgor, no rashes or lesions noted Laboratory Results - last 24 hr 06/21/17 06/21/17 09:00 09:00 WBC 2.3 L RBC 3.46 L Hgb 10.5 L Hct 31.8 L MCV 92.0 MCH 30.3 MCHC 32.9 RDW 16.8 H Plt Count 171 MPV 7.2 L Sodium 138 Potassium 4.0 Chloride 99 Carbon Dioxide 34 H Anion Gap 5 L BUN 17 D Creatinine 1.0 Random Glucose 93 Calcium 8.5 Active Medications Generic Name Dose Route Start Last Admin Trade Name Freq PRN Reason Stop Dose Admin Albuterol Sulfate 2 puff 06/18/17 11:09 Ventolin Hfa Inhaler - IH Q4H PRN SHORT OF BREATH/WHEEZING Albuterol/Ipratropium 1 amp 06/21/17 15:14 Duoneb - NEB Q4H PRN SHORTNESS OF BREATH Artificial Tears 1 drop 06/19/17 12:45 06/21/17 10:54 Artificial Tears OU 1 drop Q4H [facility] Administration Bacitracin/Polymyxin B Sulfate 1 applic 06/18/17 22:00 06/21/17 10:55 Polysporin Ophthalmic Ointment - OD 1 applic BID [facility] Administration Docusate Sodium 100 mg 06/18/17 14:00 06/21/17 05:43 Colace - PO Not Given TID [facility] Enoxaparin Sodium 40 mg 06/19/17 10:00 06/21/17 10:54 Lovenox - SQ Not Given DAILY [facility] Losartan Potassium 25 mg 06/18/17 11:15 06/20/17 10:10 Cozaar - PO 25 mg DAILY [facility] Administration Metoprolol Tartrate 25 mg 06/18/17 22:00 06/20/17 22:09 Lopressor - PO 25 mg BID [facility] Administration Pantoprazole Sodium 40 mg 06/18/17 22:00 06/20/17 22:09 Protonix - PO 40 mg BID [facility] Administration Polyethylene Glycol 17 gm 06/18/17 22:00 06/21/17 10:54 Miralax (For Daily Use) - PO Not Given BID [facility] Prednisone 20 mg 06/18/17 18:30 06/20/17 10:10 Deltasone - PO 20 mg DAILY [facility] Administration Senna 2 tab 06/18/17 22:00 06/20/17 22:10 Senna - PO 2 tab HS [facility] Administration ASSESSMENT/PLAN: 87 year old male with a pmh of HTN, HLD, CAD, Atrial fibrillation not on AC due to hx of GI bleeds, heart failure with preserved ejection fraction, pulmonary HTN, COPD on home O2, chronic pancytopenia, CKD, and bells palsy is admitted to the hospital for weakness and decreased PO intake. 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 Renteria: found smooth muscular narrowing above the gastroesophageal junction, but was able to pass scope. -can start on soft diet as per GI recommendations -continue prednisone #Weakness: resolved today #R Eye Erythema and [place] Palsy Affecting R Eye: -continue polymixin B ointment -continue artificial tears -f/u as outpatient with bicycle repairman Dr. Treviño #Hypertension: controlled today 121/54 -continue cozaar 25 PO daily -continue lopressor 25mg PO BID -lasix held -hold fluids #COPD: no acute issues -continue duonebs PRN #Constipation: not an acute issue -continue Senna -continue miralax -continue colace #Atrial fibrillation: controlled -no anticoagulation due to history of GI bleeds -continue metoprolol to help rate control #FEN hold fluids replete electrolytes as necessary f/u barium swallow for dietary reccs Proph Lovenox 40mg subq Disposition Continue to monitor on med-surg Discharge planning, will need to go to SNF Visit type - Emergency Visit Emergency Visit: No - New Patient This patient is new to me today: No - Critical Care Critical Care patient: No
--- NOTE | 2017-06-21 15:50 | PN ---
Progress Note, CLINICAL CASE MANAGER - Note Progress Note: Selected Entries 06/20/17 06/20/17 06/20/17 02:00 06:00 14:57 Lunch 25% Supper Temperature 97.6 F 98.5 F 06/20/17 06/20/17 06/20/17 15:16 16:30 19:03 Lunch Supper 75% Temperature 97.4 F L 98 F 06/20/17 06/21/17 06/21/17 22:00 10:00 14:32 Lunch Supper Temperature 97.5 F L 98.2 F 97.7 F Laboratory Tests 06/20/17 06/21/17 06:30 09:00 WBC 3.1 L 2.3 L EGD noted with smooth, muscular narrowing identified just above GEJ was noted. Dilatation performed. Soft diet/thin liquid ordered for dinner. Suggest alternating solid with liquid and completing meal with liquid. HOB elevated during meal and for 1-2 hours after.
--- NOTE | 2017-06-21 15:51 | PN ---
Teaching Attending Note Name of Resident: Heath Warren ATTENDING PHYSICIAN STATEMENT I saw and evaluated the patient. I reviewed the resident's note and discussed the case with the resident. I agree with the resident's findings and plan as documented. SUBJECTIVE:asymptomatic. states he is not currently having the food sticking sensation on swallowing. denies Cp, SOB< fever, chills, N/V/C/D OBJECTIVE: Last Vital Signs Temp Pulse Resp BP Pulse Ox 97.7 F 88 20 130/70 97 06/21/17 14:32 06/21/17 15:05 06/21/17 15:05 06/21/17 15:05 06/21/17 15:05 General NAD HEENT R side facial droop CV s1 s2 RRR Lungs CTA B/L no wheezing/rales/rhonchi ASSESSMENT AND PLAN: 87 yo M with PMHx of COPD on 2L home oxygen, Afib (not on anti-coagulation), prior GIB, low grade lymphoma with pancytopena, CAD with 1 vessel disease, recent admission with Cardenas's palsy admitted with weakness, poor oral intake and constipation. 1. Generalized weakness - likely due to poor oral intake. now improved. agreeable to [facility]. 2. Dysphagia- concern for esophageal mass vs external compression. NPO for EGD to further assess. consider CT chest to evaluate if EGD is not revealing. 3. HTN- controlled 4. COPD on home O2 5. 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 maintain eye patch. on steroids 6. DVT ppx- lovenox 7. DNR/DNI. 8. dispo planning to [facility] pending EGD results
[2017-06-21] MEDS: METOPROLOL TARTRATE 25 MG TABLET (FP) PO SCH ×2 (16:58→22:36)
[2017-06-21] MEDS: PANTOPRAZOLE 40 MG TABLET (FP) PO SCH ×2 (16:58→22:36)
[2017-06-21] MEDS: LOSARTAN POTASSIUM 25 MG TABLET PO SCH (17:30)
[2017-06-21] MEDS: predniSONE 20 MG TABLET (UD) PO SCH (17:30)
[2017-06-21] MEDS ORDERED: METOPROLOL TARTRATE 5 MG/5 ML VIAL ONE ×2 (18:02→18:13)
[2017-06-21] MEDS ORDERED: ACETAMINOPHEN 1000 MG/100 ML VIAL (NON FORMULARY) IVPB ONE (18:29)
[2017-06-21] MEDS ORDERED: ONDANSETRON 4 MG/2 ML VIAL IVPUSH ONE (18:29)
[2017-06-21] MEDS ORDERED: METOPROLOL TARTRATE 5 MG/5 ML VIAL IVPUSH ONE ×2 (18:29→18:30)
--- NOTE | 2017-06-21 19:01 | RAPID ---
Physical Examination Vital Signs: Vital Signs Labs: CBC, BMP 06/21/17 09:00 06/21/17 09:00 Rapid Response - Rapid Response Assessment: Rapid response called at 17:57. Medicine team immediately responded. When we arrived patient was on a non-rebreather saturating at 95%-98% with a heart rate in the 190's. According to RN, Patient is S/P EGD with dilation of the esophagus today placed on Anesthesia. Patient reports feeling short of breath and was shivering throughout. EKG was immediately done and patient was found to have A.fib with RVR. Lopressor 5mg IVP was given and patient's heart rate went down to 100's-110. His heart rate then went up to the 130's, another Lopressor 5mg IVP was given and patient's heart rate went down to 90's. Patient remained hemodynamically stable and transferred to the telemetry unit. VITALS: BP: 139/79 HR: 190 initially 02 saturation: 98% on non-rebreather Temperature: 100.6 F PHYSICAL EXAM GENERAL: Awake, Alert, Oriented, responding to verbal command HEART: Tachycardic, irregularly irregular LUNGS: Lungs are clear bilaterally with no wheezes or rhonchi. On non- breather. Coughing up thick sputum. 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 EGD performed today which revealed smooth muscular narrowing above the gastroesophageal junction with dilation performed at the distal esophagus. Atrial Fibrillation with RVR -Possibly secondary to infectious etiology. Patient is s/p EGD with anesthesia which might have caused aspiration pneumonia VS. HCAP. -Lopressor 5mg IVP x2 given with rate controlled. Will continue Lopressor 25mg PO BID. -CHADSVASC score of 5 and not on AC due to history of GI bleed. However, patient had Cryo-maze and NATE ligation with a decrease risk of thrombus but still at risk of stroke. Will continue to control heart rate with his regular PO lopressor 25mg BID dose. Will give Cardizem IV push if patient continues to have A.fib with RVR. -Tylenol 1000mg IV for fevers. -Troponins ordered to rule out any ischemia or infarct -Cardiology consult placed and spoke to cardiology car inspection and repair manager, Dr. Leong. Discussed case in detail and agrees with plan. -Zofran IV PRN for N/V -Patient transferred to Telemetry for continuous cardiac monitoring Sepsis possibly secondary to Aspiration Pneumonia vs. HCAP -Chest X-Ray revealed developing left consolidation which is likely HCAP rather than aspiration but will still need to cover. -Blood cultures, Urine antigens for legionella, and Zosyn/Vanco coverage for aspiration pneumonia and HCAP. Spoke to medical attending -Patient had temperature of 100.6 with tachycardia and WBC <4 today, meeting SIRS criteria -Case discussed with Dr. Pfeiffer and Dr. Butler who agree with plan -Sing out given to the night team who will continue management.
[2017-06-21] MEDS ORDERED: VANCOMYCIN 1,000 MG in DEXTROSE 5%-WATER - 250 ML IVPB ONE (19:41)
[2017-06-21] MEDS ORDERED: PIPERACIL/TAZOB 3.375 GM 3.375 GM/50 ML PREMIX IVPB SCH (19:45)
[2017-06-21] MEDS: PIPERACILLIN/TAZOB 3.375 GM 3.375 GM in DEXTROSE 5%-WATER - 50 ML IVPB SCH (22:35)
[2017-06-21] MEDS: SENNOSIDES 8.6MG TABLET (FP) PO SCH (22:36)
[2017-06-21 23:10] LABS: TROPONIN I 0.03 ng/ml (0.00-0.05)
[2017-06-21 23:28] LABS: MAGNESIUM 1.7 mg/dL (1.8-2.4); PHOSPHOROUS 2.8 mg/dL (2.5-4.9)
[2017-06-22] MEDS: ARTIFICIAL TEARS (POLYVINYL ALCOHOL 1.4%) OPTH DROPS OU SCH ×6 (01:15→20:08)
[2017-06-22] MEDS ORDERED: MAGNESIUM SULF 50% (8.12 MEQ/2 ML-1 GM VIAL) IVPB ONE (03:00)
[2017-06-22] MEDS: PIPERACILLIN/TAZOB 3.375 GM 3.375 GM in DEXTROSE 5%-WATER - 50 ML IVPB SCH (04:35)
[2017-06-22] MEDS: DOCUSATE SODIUM 100 MG CAPSULE (FP) PO SCH ×3 (06:40→23:57)
[2017-06-22 08:25] LABS: MCH 30.4 pg (25.7-33.7); MEAN CELL VOLUME 92.3 fl (80-96); MEAN PLT VOLUME 7.7 fl (7.5-11.1); PLATELET COUNT 159 K/MM3 (134-434); RDW 16.3 % (11.9-15.9); WHITE BLOOD COUNT 3.8 K/mm3 (4.0-10.0)
[2017-06-22] MEDS ORDERED: PIPERACILLIN/TAZOB 3.375 GM/50 ML PRE-DOCKED IVPB SCH (08:45)
[2017-06-22 09:01] LABS: ANION GAP 4 (8-16); CALCIUM 8.2 mg/dL (8.5-10.1); CO2 33 mmol/L (21-32); GLUCOSE,RANDOM 118 mg/dL (74-106); MAGNESIUM 2.3 mg/dL (1.8-2.4)
[2017-06-22] MEDS ORDERED: VANCOMYCIN 1 GRAM (PRE-DOCKED) 1,000 MG/250 ML BAG IVPB SCH (10:00)
[2017-06-22] MEDS: PANTOPRAZOLE 40 MG TABLET (FP) PO SCH ×2 (10:15→23:54)
[2017-06-22] MEDS: METOPROLOL TARTRATE 25 MG TABLET (FP) PO SCH ×3 (10:15→23:54)
[2017-06-22] MEDS: POLYETHYLENE GLYCOL 3350 119 GM BTL PO SCH ×2 (10:16→23:54)
[2017-06-22] MEDS: LOSARTAN POTASSIUM 25 MG TABLET PO SCH ×2 (10:16→10:42)
[2017-06-22] MEDS: ENOXAPARIN NA (PORCINE) 40 MG/0.4 ML DISP.SYRIN SQ SCH (10:16)
[2017-06-22] MEDS: BACITRACIN/POLYMYXIN OPH OINT 3.5 GM TUBE OD SCH (10:16)
[2017-06-22] MEDS: predniSONE 20 MG TABLET (UD) PO SCH (10:16)
--- NOTE | 2017-06-22 10:57 | PN ---
Progress Note (short form) - Note Progress Note: PULMONARY AWAKE/ALERT/OOB TO CHAIR VSS/AFEBRILE WAS LOW GRADE POST PROCEDURE ANICTERIC/RIGHT FACIAL NERVE PALSY(WOOTEN'S) SCATTERED CRACKLES ON RIGHT S1S2 IRREGULAR(RATE CONTROLLED) BS+ SOFT NO EDEMA LABS/MEDS/IMAGES REVIEWED AF w rapid ventricular response post EGD Pulmonary edema vs aspiration given radiograph findings COPD CAD Pulmonary HTN Atrial Fibrillation s/p cryomaze procedure/history of GI bleed precluding anticoagulation Lymphoma low grade ASD repair - rate control/BP monitoring/parameters for meds - ID/Cardio eval - O2 to keep SpO2 >90% - inhaled bronchodilators - PO as tolerated, will likely need dietary supplementation - needs short term rehab Felix ELIZABETH MD
--- NOTE | 2017-06-22 11:19 | CON.CARD ---
Consult Consult Specialty:: Cardiology Referred by:: Ean Pfeiffer MD Reason for Consultation:: Post-EGD rapid afib - History of Present Illness Chief Complaint: Dyspnea History of Present Illness: 87 yo WM with h/o Cardenas's Palsy, diastolic dysfunction with h/o failure, single vessel CAD, persistent atrial fibrillation post Cryo-Maze and NATE ligation, [id number] score of 5, history of GI bleed precluding anticoagulation, moderate to severe degree of pulmonary HTN, HTN, chol, ASD post surgical repair , history of hypercapneic respiratory failure with underlying COPD, CKD, lymphoma low grade, developed AF w rapid ventricular response post EGD rate- controlled with Lopressor, dyspnea improved today and remains rate-controlled, CXR shows LLL consolidation/congestion. - History Source History Provided By: Patient Limitations to Obtaining History: No Limitations - Past Medical History Cardio/Vascular: Yes: AFIB, CAD, CHF ([place] on chronic LV systolic and diastolic heart failure), Pulmonary Hypertension, Other (REPAIR OF LARGE ASD) Pulmonary: Yes: COPD, Other (PULMONARY HYPERTENSION). No: Cancer, O2 Dependent , Previously Intubated, Pulmonary Embolus Musculoskeletal: Yes: Osteoarthritis. No: Chronic low back pain ENT: Yes: Other (H/O EPISTAXSIS WITH ER VISTS TWICE OVER PAST 12 MONTHS.) - Alcohol/Substance Use Hx Alcohol Use: No History of Substance Use: reports: None - Smoking History Smoking history: Unknown if ever smoked Have you smoked in the past 12 months: No If you are a former smoker, when did you quit?: 1984 - Social History ADL: Family Assistance History of Recent Travel: No Home Medications - Allergies Allergies/Adverse Reactions: Allergies Allergy/AdvReac Type Severity Reaction Status Date / Time No Known Allergies Allergy Verified 06/18/17 02:40 - Home Medications Home Medications: Ambulatory Orders Losartan Potassium [Cozaar] 25 mg PO DAILY 10/18/16 Albuterol Sulfate Inhaler - [Ventolin HFA Inhaler -] 2 puff IH Q4H PRN #30 inhaler 11/05/16 Metoprolol Tartrate [Lopressor -] 25 mg PO BID #60 tablet 11/05/16 Pantoprazole Sodium [Protonix -] 40 mg PO BID #60 tab 11/05/16 Furosemide [Lasix -] 40 mg PO Q48H 05/21/17 Pantoprazole Sodium [Protonix -] 40 mg PO BID 06/18/17 Polyethylene Glycol 3350 [Miralax 119 gm Btl -] 17 gm PO DAILY PRN 06/18/17 Prednisone [Deltasone -] 20 mg PO DAILY 06/18/17 Spironolactone 25 mg PO BID 06/18/17 Family Disease History - Family Disease History Family Disease History: Heart Disease: Father, Sister, CA: Brother (CVA, PROSTATE CANCE,LUNG CANCER,PANCREATIC CANCER), Other: Brother Review of Systems - Review of Systems Cardiovascular: reports: Shortness of Breath Vital Signs: Vital Signs Temperature 98.3 F 06/22/17 06:00 Pulse Rate 64 06/22/17 06:00 Respiratory Rate 18 06/22/17 06:00 Blood Pressure 97/47 06/22/17 06:00 O2 Sat by Pulse Oximetry (%) 97 06/21/17 21:00 Constitutional: Yes: No Distress, Calm Neck: Yes: Supple Respiratory: Yes: Regular, Diminished, Rales Gastrointestinal: Yes: Normal Bowel Sounds, Soft Cardiovascular: Yes: Pulse Irregular JVD: No Carotid Bruit: No Murmur: Yes: Systolic Murmur, Grade 2 Edema: No - Other Data Labs, Other Data: CBC, BMP 06/22/17 05:45 06/22/17 05:45 INR, PTT INR 1.17 (0.82-1.09) H 06/18/17 03:35 Troponin, BNP 06/21/17 22:00 Troponin I 0.03 D Troponin, BNP 06/21/17 22:00 Troponin I 0.03 D Afib @ 134 RBBB LAFB occ PVC Imaging - Results Chest X-ray: Report Reviewed (Developing left lung consolidation, congestion) Problem List - Problems (1) Status post balloon dilatation of esophageal stricture Code(s): Z98.890 - OTHER SPECIFIED POSTPROCEDURAL STATES (2) B-cell lymphoma Code(s): C85.10 - UNSPECIFIED B-CELL LYMPHOMA, UNSPECIFIED SITE Qualifiers: B-cell lymphoma type: unspecified B-cell (3) COPD (chronic obstructive pulmonary disease) Code(s): J44.9 - CHRONIC OBSTRUCTIVE PULMONARY DISEASE, UNSPECIFIED Qualifiers: COPD type: unspecified COPD Qualified Code(s): J44.9 - Chronic obstructive pulmonary disease, unspecified (4) Pulmonary HTN Code(s): I27.20 - PULMONARY HYPERTENSION, UNSPECIFIED (5) Systolic and diastolic CHF, acute on chronic Code(s): I50.43 - ACUTE ON CHRONIC COMBINED SYSTOLIC AND DIASTOLIC HRT FAIL (6) Atrial fibrillation Code(s): I48.91 - UNSPECIFIED ATRIAL FIBRILLATION Qualifiers: Atrial fibrillation type: persistent Qualified Code(s): I48.1 - Persistent atrial fibrillation (7) CAD (coronary artery disease) Code(s): I25.10 - ATHSCL HEART DISEASE OF [place] CORONARY ARTERY W/O ANG PCTRS Qualifiers: Coronary Disease-Associated Artery/Lesion type: [place] artery [place] vs. transplanted heart: [place] heart Associated angina: without angina Qualified Code(s): I25.10 - Atherosclerotic heart disease of [place] coronary artery without angina pectoris (8) H/O atrial septal defect repair Code(s): Z98.89 - OTHER SPECIFIED POSTPROCEDURAL STATES * DO NOT USE *; Z87.74 - PERSONAL HISTORY OF CONGENITAL MALFORM OF HEART AND CIRC SYS (9) Hypercholesterolemia Code(s): E78.0 - PURE HYPERCHOLESTEROLEMIA * DO NOT USE * (10) Hypertension Code(s): I10 - ESSENTIAL (PRIMARY) HYPERTENSION Qualifiers: Hypertension type: essential hypertension Qualified Code(s): I10 - Essential (primary) hypertension (11) Right bundle branch block Code(s): I45.10 - UNSPECIFIED RIGHT BUNDLE-BRANCH BLOCK (12) Status post Maze operation for atrial fibrillation Code(s): Z98.890 - OTHER SPECIFIED POSTPROCEDURAL STATES; Z86.79 - PERSONAL HISTORY OF OTHER DISEASES OF THE CIRCULATORY SYSTEM Assessment/Plan 05/23/2017 Echo: Normal LV size and fxn, mod decreased RV fxn, severe MARTHA, mod TR, mild MR, mod pulm HTN RVSP 50-60 mmHg, mod AR 1. Atrial fibrillation w/ rapid ventricular response post EGD with TTS balloon dilatation suspect aspiration 2. Acute on chronic diastolic failure referable to above improved 3. 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 Persistent atrial fibrillation post Cryo-Maze and NATE ligation, [id number] score of 5, currently off of A/C due to h/o GI bleed 5. 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 HTN 7. Hypercholesterolemia 8. ASD post surgical repair 9. History of hypercapneic respiratory failure, underlying COPD 10. Pancytopenia, low grade Lymphoma 11. 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 Continue Lopressor 25 bid and losartan 25 qd as hemodynamics permitting 2. Diuresis with monitor diuretic response, renal fxn and electrolytes 3. As outlined in prior notes recommend withholding A/C therapy indefinitely recognizing elevated stroke risk ([id number] score of 5) considering his history of recurrent GI bleed, patient not a candidate for Watchman device insertion, history of NATE ligation 4. BD, O2 to keep SpO2 >90%, PO as tolerated, will likely need dietary supplementation, oral steroids with GI and DVT prophylaxis 5. Thank you for consultative opportunity
--- NOTE | 2017-06-22 11:24 | PN ---
Progress Note, IT DATA ARCHITECT - Note Progress Note: Pt transferred from med surg to tele: pneumonia and rapid afib Pt oob, verbal, comfortable. Pt reports "difficulty swallowing" this am,having food sticking, difficulty swallowing after he ate eggs, pancakes and oatmeal. He said "after a while it got better." I suspect likely sec to impaired esophageal emptying with build up in the esophagus. With time, esophagus empties, but slowly. Pt counseled on eating slowly, small bites, chewing well, alternating solids with liquids and completing meal with liquid, upright during and after meal for an hour. Several small meals throughout the day. Pt is being followed by Gi.
--- NOTE | 2017-06-22 11:40 | PN ---
Progress Note, Physician History of Present Illness: Chart reviewed. Events and findings noted. On telemetry for donna gracia with RVR and SOB, cough. ?aspiration PNA. C/o sore throat this am. Son at bedside. - Current Medication List Current Medications: Active Medications Albuterol Sulfate (Ventolin Hfa Inhaler -) 2 puff IH Q4H PRN PRN Reason: SHORT OF BREATH/WHEEZING Albuterol/Ipratropium (Duoneb -) 1 amp NEB Q4H PRN PRN Reason: SHORTNESS OF BREATH Artificial Tears (Artificial Tears) 1 drop OU Q4H [facility] Last Admin: 06/22/17 10:16 Dose: 1 drop Bacitracin/Polymyxin B Sulfate (Polysporin Ophthalmic Ointment -) 1 applic OD BID [facility] Last Admin: 06/22/17 10:16 Dose: 1 applic Docusate Sodium (Colace -) 100 mg PO TID [facility] Last Admin: 06/22/17 06:40 Dose: 100 mg Enoxaparin Sodium (Lovenox -) 40 mg SQ DAILY [facility] Last Admin: 06/22/17 10:16 Dose: 40 mg Losartan Potassium (Cozaar -) 25 mg PO DAILY [facility] Last Admin: 06/22/17 10:42 Dose: Not Given Metoprolol Tartrate (Lopressor -) 25 mg PO BID [facility] Last Admin: 06/22/17 10:41 Dose: Not Given Pantoprazole Sodium (Protonix -) 40 mg PO BID [facility] Last Admin: 06/22/17 10:15 Dose: 40 mg Piperacillin Sod/Tazobactam Sod (Zosyn 3.375gm Ivpb (Pre-Docked)) 3.375 gm IVPB Q6H [facility] PRN Reason: Protocol Polyethylene Glycol (Miralax (For Daily Use) -) 17 gm PO BID [facility] Last Admin: 06/22/17 10:16 Dose: Not Given Prednisone (Deltasone -) 20 mg PO DAILY [facility] Last Admin: 06/22/17 10:16 Dose: 20 mg Senna (Senna -) 2 tab PO HS [facility] Last Admin: 06/21/17 22:36 Dose: 2 tab Vancomycin HCl (Vancomycin (Pre-Docked)) 1,000 mg IVPB DAILY [facility] PRN Reason: Protocol - Objective Vital Signs: Vital Signs Temperature 98.3 F 06/22/17 06:00 Pulse Rate 64 06/22/17 06:00 Respiratory Rate 18 06/22/17 06:00 Blood Pressure 97/47 06/22/17 06:00 O2 Sat by Pulse Oximetry (%) 97 06/21/17 21:00 Constitutional: Yes: Calm Eyes: Yes: Conjunctiva Clear. No: Sclera Icterus Respiratory: Yes: Cough, On Nasal O2 Neurological: Yes: Alert, Oriented Labs: CBC, BMP 06/22/17 05:45 06/22/17 05:45 INR, PTT INR 1.17 (0.82-1.09) H 06/18/17 03:35 Laboratory Results - last 24 hr 06/21/17 06/21/17 06/22/17 22:00 22:00 05:45 WBC 3.8 L D RBC 3.38 L Hgb 10.3 L Hct 31.2 L MCV 92.3 MCH 30.4 MCHC 33.0 RDW 16.3 H Plt Count 159 MPV 7.7 Sodium Potassium Chloride Carbon Dioxide Anion Gap BUN Creatinine Random Glucose Calcium Phosphorus 2.8 Magnesium 1.7 L Creatine Kinase 18 L Troponin I 0.03 D 06/22/17 05:45 WBC RBC Hgb Hct MCV MCH MCHC RDW Plt Count MPV Sodium 136 Potassium 4.4 Chloride 99 Carbon Dioxide 33 H Anion Gap 4 L BUN 18 Creatinine 1.0 Random Glucose 118 H D Calcium 8.2 L Phosphorus Magnesium 2.3 D Creatine Kinase Troponin I Problem List - Problems (1) Abnormal findings on radiological examination of gastrointestinal tract Code(s): R93.3 - ABNORMAL FINDINGS ON DX IMAGING OF PRT DIGESTIVE TRACT Assessment/Plan s/p EGD with TTS balloon dilatation w/o immediate compilations. No events during the procedure to suspect aspiration, however there were excessive secretions and cough post procedure. this am, new c/o sore throat, no chest pain, vomiting, hematemesis, or melena. Tolerating soft diet continue current care and diet today monitor will follow
--- NOTE | 2017-06-22 11:42 | PN ---
Teaching Attending Note Name of Resident: Heath Warren ATTENDING PHYSICIAN STATEMENT I saw and evaluated the patient. I reviewed the resident's note and discussed the case with the resident. I agree with the resident's findings and plan as documented. SUBJECTIVE:asymptomatic. had mild coughing this AM with streaks of blood. states he has not experienced similar episodes of dyspnea or palpitations. denies CP, SOB, fever, chills, N/V/C/D OBJECTIVE: Last Vital Signs Temp Pulse Resp BP Pulse Ox 98.3 F 64 18 97/47 97 06/22/17 06:00 06/22/17 06:00 06/22/17 06:00 06/22/17 06:00 06/21/17 21:00 General NAD HEENT R side facial droop CV s1 s2 RRR Lungs CTA B/L no wheezing/rales/rhonchi ASSESSMENT AND PLAN: 87 yo M with PMHx of COPD on 2L home oxygen, Afib (not on anti-coagulation), prior GIB, low grade lymphoma with pancytopena, CAD with 1 vessel disease, recent admission with Cardenas's palsy admitted with weakness, poor oral intake and constipation. 1. Generalized weakness - likely due to poor oral intake. now improved. agreeable to [facility]. 2. Afib with RVR- likely due to medications being held yesterday and stress of procedure. HR mazed at 190 and responded to lopressor 5mg IV x2. HR now afib with rate controlled. re-started on home medications. refused anticoagulation. cardio consulted 3. Fever- Tm 100.6 during [employer] likely due to stress of event. CXR showing questionable infiltrate vs congestion. more likely congestion due to rapid afib. received vanco and zosyn. will d/c now. ID consulted will defer to them if abx should be initiated. 2. Dysphagia-s/p EGD 06/21. with balloon dilation at [facility]. tolerating soft diet. some hemoptysis likely from procedure. Hgb stable. will monitor for now.will need to f/u as outpatient if symptoms recur may need to consider botox injections. 3. HTN- controlled 4. COPD on home O2 5. 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 maintain eye patch. on steroids 6. DVT ppx- lovenox 7. DNR/DNI. 8. monitor 24H on tele monitoring for recurring events of afib. if afebrile in 24H can go to [facility]
[2017-06-22] MEDS ORDERED: FUROSEMIDE 40 MG TABLET (FP) PO SCH (12:15)
--- NOTE | 2017-06-22 13:06 | PN ---
Progress Note (short form) - Note Progress Note: ID Consult dictated Low grade temp s/p esophageal dilatation CXR ? new L infiltrate R/O Aspiration pneumonia Cultures ordered Empiric Zosyn
--- NOTE | 2017-06-22 13:11 | PN ---
Physical Exam: SUBJECTIVE: Patient seen and examined at bedside. Yesterday patient went into afib with RVR to the 190s after endoscopy. He states that he experienced chills twice. Patient was given metoprolol 5mg pushes twice to control rate and then given his home dose of 25mg BID. A chest x ray was performed that showed new consolidation in the lungs bilaterally. OBJECTIVE: Vital Signs Period Temp Pulse Resp BP Sys/Brian Pulse Ox Last 24 Hr 97.2 F-100.6 F 64-190 14-22 97-160/47-97 94-98 GENERAL: The patient is awake, alert, and fully oriented, in no acute distress. HEAD: Normal with no signs of trauma. EYES: R sclera moderately erythematous improved since yesterday, R eye open and unable to close - eyepatch present on R eye. ENT: Ears normal, nares patent, oropharynx clear without exudates, moist mucous membranes. LUNGS: Crackles heard in L more than R side of chest, no accessory muscle use. HEART: Regular rate and rhythm, S1, S2 without murmur, rub or gallop. ABDOMEN: Soft, nontender, nondistended, normoactive bowel sounds, no guarding, no rebound, no hepatosplenomegaly, no masses. NEUROLOGICAL: Cranial nerve VII on the R is not currently functional, facial droop present. Rest of cranial nerves intact. SKIN: Warm, dry, normal turgor, no rashes or lesions noted Laboratory Results - last 24 hr 06/21/17 06/21/17 06/22/17 22:00 22:00 05:45 WBC 3.8 L D RBC 3.38 L Hgb 10.3 L Hct 31.2 L MCV 92.3 MCH 30.4 MCHC 33.0 RDW 16.3 H Plt Count 159 MPV 7.7 Sodium Potassium Chloride Carbon Dioxide Anion Gap BUN Creatinine Random Glucose Calcium Phosphorus 2.8 Magnesium 1.7 L Creatine Kinase 18 L Troponin I 0.03 D 06/22/17 05:45 WBC RBC Hgb Hct MCV MCH MCHC RDW Plt Count MPV Sodium 136 Potassium 4.4 Chloride 99 Carbon Dioxide 33 H Anion Gap 4 L BUN 18 Creatinine 1.0 Random Glucose 118 H D Calcium 8.2 L Phosphorus Magnesium 2.3 D Creatine Kinase Troponin I Active Medications Generic Name Dose Route Start Last Admin Trade Name Freq PRN Reason Stop Dose Admin Albuterol Sulfate 2 puff 06/18/17 11:09 Ventolin Hfa Inhaler - IH Q4H PRN SHORT OF BREATH/WHEEZING Albuterol/Ipratropium 1 amp 06/21/17 15:14 Duoneb - NEB Q4H PRN SHORTNESS OF BREATH Artificial Tears 1 drop 06/19/17 12:45 06/22/17 10:16 Artificial Tears OU 1 drop Q4H [facility]IA Administration Bacitracin/Polymyxin B Sulfate 1 applic 06/18/17 22:00 06/22/17 10:16 Polysporin Ophthalmic Ointment - OD 1 applic BID [facility] Administration Docusate Sodium 100 mg 06/18/17 14:00 06/22/17 06:40 Colace - PO 100 mg TID [facility] Administration Enoxaparin Sodium 40 mg 06/19/17 10:00 06/22/17 10:16 Lovenox - SQ 40 mg DAILY [facility] Administration Furosemide 40 mg 06/22/17 12:15 Lasix - PO Q48H [facility] Piperacillin/Tazobactam/Dextrose 50 mls @ 100 mls/hr 06/22/17 13:00 Zosyn 3.375gm Ivpb (Premix) IVPB Q8H-IV RUBIA Protocol Losartan Potassium 25 mg 06/18/17 11:15 06/22/17 10:42 Cozaar - PO Not Given DAILY [facility]IA Metoprolol Tartrate 25 mg 06/18/17 22:00 06/22/17 10:41 Lopressor - PO Not Given BID [facility]IA Pantoprazole Sodium 40 mg 06/18/17 22:00 06/22/17 10:15 Protonix - PO 40 mg BID [facility] Administration Polyethylene Glycol 17 gm 06/18/17 22:00 06/22/17 10:16 Miralax (For Daily Use) - PO Not Given BID [facility] Prednisone 20 mg 06/18/17 18:30 06/22/17 10:16 Deltasone - PO 20 mg DAILY [facility] Administration Senna 2 tab 06/18/17 22:00 06/21/17 22:36 Senna - PO 2 tab HS [facility]UBIA Administration ASSESSMENT/PLAN: 87 year old male with a pmh of HTN, HLD, CAD, Atrial fibrillation not on AC due to hx of GI bleeds, heart failure with preserved ejection fraction, pulmonary HTN, COPD on home O2, chronic pancytopenia, CKD, and bells palsy is admitted to the hospital for weakness and decreased PO intake. 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 Renteria: found smooth muscular narrowing above the gastroesophageal junction, balloon passed, -soft diet as per GI recommendations -continue prednisone #Aspiration pneumonia: CXR shows infiltrates bilaterally, r/o pneumonia -appreciate ID consult -cxr shows new infiltrates -cultures sent -empiric zosyn ordered #Atrial Fibrillation with Rapid Ventricular Response: rate controlled -patient transferred to telemetry -continue metoprolol 25mg PO BID for rate control #Weakness: resolved today #R Eye Erythema and Slayden Palsy Affecting R Eye: -continue polymixin B ointment -continue artificial tears -f/u as outpatient with instructor nurse Dr. Treviño #Hypertension: controlled today 121/54 -continue cozaar 25 PO daily -continue lopressor 25mg PO BID -lasix held -hold fluids #COPD: no acute issues -continue duonebs PRN #Constipation: not an acute issue -continue Senna -continue miralax -continue colace #Atrial fibrillation: controlled -no anticoagulation due to history of GI bleeds -continue metoprolol to help rate control #FEN hold fluids replete electrolytes as necessary f/u barium swallow for dietary reccs Proph Lovenox 40mg subq Disposition Continue to monitor on med-surg Discharge planning, will need to go to SNF Visit type - Emergency Visit Emergency Visit: No - New Patient This patient is new to me today: No - Critical Care Critical Care patient: No
[2017-06-22] MEDS: PIPERACILLIN/TAZOB 3.375 GM 50 ML IVPB SCH ×2 (14:20→17:44)
[2017-06-22] MEDS: FUROSEMIDE 40 MG TABLET (FP) PO SCH ×2 (14:40→15:00)
[2017-06-22] MEDS: SENNOSIDES 8.6MG TABLET (FP) PO SCH (23:54)
[2017-06-23] MEDS: BACITRACIN/POLYMYXIN OPH OINT 3.5 GM TUBE OD SCH ×3 (00:03→21:40)
[2017-06-23] MEDS: ARTIFICIAL TEARS (POLYVINYL ALCOHOL 1.4%) OPTH DROPS OU SCH ×6 (00:03→20:32)
[2017-06-23] MEDS: PIPERACILLIN/TAZOB 3.375 GM 3.375 GM in DEXTROSE 5%-WATER - 50 ML IVPB SCH ×3 (02:08→18:38)
[2017-06-23] MEDS: DOCUSATE SODIUM 100 MG CAPSULE (FP) PO SCH ×3 (05:34→21:33)
[2017-06-23 07:24] LABS: MCH 30.1 pg (25.7-33.7); MCHC 32.5 g/dl (32.0-35.9); MEAN CELL VOLUME 92.8 fl (80-96); MEAN PLT VOLUME 7.4 fl (7.5-11.1); PLATELET COUNT 148 K/MM3 (134-434); RDW 16.4 % (11.9-15.9); WHITE BLOOD COUNT 2.5 K/mm3 (4.0-10.0)
[2017-06-23 08:10] LABS: ANION GAP 5 (8-16); CALCIUM 8.3 mg/dL (8.5-10.1); CO2 34 mmol/L (21-32); GLUCOSE,RANDOM 109 mg/dL (74-106); MAGNESIUM 2.3 mg/dL (1.8-2.4)
[2017-06-23] MEDS ORDERED: PT OWN MED DRAWER 7, Y5N ONE (10:06)
[2017-06-23] MEDS: ENOXAPARIN NA (PORCINE) 40 MG/0.4 ML DISP.SYRIN SQ SCH (10:08)
[2017-06-23] MEDS: POLYETHYLENE GLYCOL 3350 119 GM BTL PO SCH ×2 (10:08→21:38)
[2017-06-23] MEDS: METOPROLOL TARTRATE 25 MG TABLET (FP) PO SCH ×2 (10:09→21:33)
[2017-06-23] MEDS: PANTOPRAZOLE 40 MG TABLET (FP) PO SCH ×2 (10:09→21:32)
[2017-06-23] MEDS: predniSONE 20 MG TABLET (UD) PO SCH (10:09)
[2017-06-23] MEDS: LOSARTAN POTASSIUM 25 MG TABLET PO SCH (10:09)
--- NOTE | 2017-06-23 10:45 | PN ---
Progress Note, Physician History of Present Illness: Afib rate-controlled, dyspnea at baseline, scant hemoptysis. - Current Medication List Current Medications: Active Medications Albuterol Sulfate (Ventolin Hfa Inhaler -) 2 puff IH Q4H PRN PRN Reason: SHORT OF BREATH/WHEEZING Albuterol/Ipratropium (Duoneb -) 1 amp NEB Q4H PRN PRN Reason: SHORTNESS OF BREATH Artificial Tears (Artificial Tears) 1 drop OU Q4H [facility] Last Admin: 06/23/17 08:30 Dose: 1 drop Bacitracin/Polymyxin B Sulfate (Polysporin Ophthalmic Ointment -) 1 applic OD BID [facility] Last Admin: 06/23/17 08:30 Dose: 1 applic Docusate Sodium (Colace -) 100 mg PO TID [facility] Last Admin: 06/23/17 05:34 Dose: 100 mg Enoxaparin Sodium (Lovenox -) 40 mg SQ DAILY [facility] Last Admin: 06/23/17 10:08 Dose: 40 mg Furosemide (Lasix -) 40 mg PO Q48H [facility] Last Admin: 06/22/17 15:00 Dose: Not Given Piperacillin Sod/Tazobactam (Sod 3.375 gm/ Dextrose) 50 mls @ 100 mls/hr IVPB Q8H-IV [facility] PRN Reason: Protocol Last Admin: 06/23/17 10:09 Dose: 100 mls/hr Losartan Potassium (Cozaar -) 25 mg PO DAILY [facility] Last Admin: 06/23/17 10:09 Dose: 25 mg Metoprolol Tartrate (Lopressor -) 25 mg PO BID [facility] Last Admin: 06/23/17 10:09 Dose: 25 mg Pantoprazole Sodium (Protonix -) 40 mg PO BID [facility] Last Admin: 06/23/17 10:09 Dose: 40 mg Polyethylene Glycol (Miralax (For Daily Use) -) 17 gm PO BID [facility] Last Admin: 06/23/17 10:08 Dose: 17 gm Prednisone (Deltasone -) 20 mg PO DAILY [facility] Last Admin: 06/23/17 10:09 Dose: 20 mg Senna (Senna -) 2 tab PO HS [facility] Last Admin: 06/22/17 23:54 Dose: 2 tab - Objective Vital Signs: Vital Signs Temperature 98.4 F 06/23/17 08:00 Pulse Rate 87 06/23/17 10:04 Respiratory Rate 16 06/23/17 08:00 Blood Pressure 114/50 06/23/17 08:00 O2 Sat by Pulse Oximetry (%) 98 06/23/17 10:04 Constitutional: Yes: No Distress, Calm Neck: Yes: Supple Cardiovascular: Yes: Regular Rate and Rhythm Respiratory: Yes: Regular, Diminished, On Nasal O2, Rales Gastrointestinal: Yes: Normal Bowel Sounds, Soft Edema: No Labs: CBC, BMP 06/23/17 05:05 06/23/17 05:05 INR, PTT INR 1.17 (0.82-1.09) H 06/18/17 03:35 Problem List - Problems (1) Status post balloon dilatation of esophageal stricture Code(s): Z98.890 - OTHER SPECIFIED POSTPROCEDURAL STATES (2) B-cell lymphoma Code(s): C85.10 - UNSPECIFIED B-CELL LYMPHOMA, UNSPECIFIED SITE Qualifiers: B-cell lymphoma type: unspecified B-cell (3) COPD (chronic obstructive pulmonary disease) Code(s): J44.9 - CHRONIC OBSTRUCTIVE PULMONARY DISEASE, UNSPECIFIED Qualifiers: COPD type: unspecified COPD Qualified Code(s): J44.9 - Chronic obstructive pulmonary disease, unspecified (4) Pulmonary HTN Code(s): I27.20 - PULMONARY HYPERTENSION, UNSPECIFIED (5) Systolic and diastolic CHF, acute on chronic Code(s): I50.43 - ACUTE ON CHRONIC COMBINED SYSTOLIC AND DIASTOLIC HRT FAIL (6) Atrial fibrillation Code(s): I48.91 - UNSPECIFIED ATRIAL FIBRILLATION Qualifiers: Atrial fibrillation type: persistent Qualified Code(s): I48.1 - Persistent atrial fibrillation (7) CAD (coronary artery disease) Code(s): I25.10 - ATHSCL HEART DISEASE OF [place] CORONARY ARTERY W/O ANG PCTRS Qualifiers: Coronary Disease-Associated Artery/Lesion type: [place] artery [place] vs. transplanted heart: [place] heart Associated angina: without angina Qualified Code(s): I25.10 - Atherosclerotic heart disease of [place] coronary artery without angina pectoris (8) H/O atrial septal defect repair Code(s): Z98.89 - OTHER SPECIFIED POSTPROCEDURAL STATES * DO NOT USE *; Z87.74 - PERSONAL HISTORY OF CONGENITAL MALFORM OF HEART AND CIRC SYS (9) Hypercholesterolemia Code(s): E78.0 - PURE HYPERCHOLESTEROLEMIA * DO NOT USE * (10) Hypertension Code(s): I10 - ESSENTIAL (PRIMARY) HYPERTENSION Qualifiers: Hypertension type: essential hypertension Qualified Code(s): I10 - Essential (primary) hypertension (11) Right bundle branch block Code(s): I45.10 - UNSPECIFIED RIGHT BUNDLE-BRANCH BLOCK (12) Status post Maze operation for atrial fibrillation Code(s): Z98.890 - OTHER SPECIFIED POSTPROCEDURAL STATES; Z86.79 - PERSONAL HISTORY OF OTHER DISEASES OF THE CIRCULATORY SYSTEM Assessment/Plan 05/23/2017 Echo: Normal LV size and fxn, mod decreased RV fxn, severe MARTHA, mod TR, mild MR, mod pulm HTN RVSP 50-60 mmHg, mod AR 1. Atrial fibrillation w/ rapid ventricular response post EGD with TTS balloon dilatation suspect aspiration 2. Acute on chronic diastolic failure referable to above 3. 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 Persistent atrial fibrillation post Cryo-Maze and NATE ligation, [id number] score of 5, currently off of A/C due to h/o GI bleed 5. 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 HTN 7. Hypercholesterolemia 8. ASD post surgical repair 9. History of hypercapneic respiratory failure, underlying COPD 10. Pancytopenia, low grade Lymphoma 11. 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 Continue Lopressor 25 bid and losartan 25 qd as hemodynamics permitting 2. Diuresis with monitor diuretic response, renal fxn and electrolytes 3. As outlined in prior notes recommend withholding A/C therapy indefinitely recognizing elevated stroke risk ([id number] score of 5) considering his history of recurrent GI bleed, patient not a candidate for Watchman device insertion, history of NATE ligation 4. BD, O2 to keep SpO2 >90%, PO as tolerated, will likely need dietary supplementation, oral steroids with GI and DVT prophylaxis
--- NOTE | 2017-06-23 11:10 | PN ---
Progress Note, Physician History of Present Illness: OOB in chair Breathing appears non-labored on nasal cannula Now with complaints of blood-streaked sputum, dysphagia No recurrent temp Cultures prelim no growth - Current Medication List Current Medications: Active Medications Albuterol Sulfate (Ventolin Hfa Inhaler -) 2 puff IH Q4H PRN PRN Reason: SHORT OF BREATH/WHEEZING Albuterol/Ipratropium (Duoneb -) 1 amp NEB Q4H PRN PRN Reason: SHORTNESS OF BREATH Artificial Tears (Artificial Tears) 1 drop OU Q4H [facility] Last Admin: 06/23/17 08:30 Dose: 1 drop Bacitracin/Polymyxin B Sulfate (Polysporin Ophthalmic Ointment -) 1 applic OD BID [facility] Last Admin: 06/23/17 08:30 Dose: 1 applic Docusate Sodium (Colace -) 100 mg PO TID [facility] Last Admin: 06/23/17 05:34 Dose: 100 mg Enoxaparin Sodium (Lovenox -) 40 mg SQ DAILY [facility] Last Admin: 06/23/17 10:08 Dose: 40 mg Furosemide (Lasix -) 40 mg PO Q48H [facility] Last Admin: 06/22/17 15:00 Dose: Not Given Furosemide (Lasix Injection -) 40 mg IVPUSH ONCE ONE Stop: 06/23/17 10:51 Piperacillin Sod/Tazobactam (Sod 3.375 gm/ Dextrose) 50 mls @ 100 mls/hr IVPB Q8H-IV [facility] PRN Reason: Protocol Last Admin: 06/23/17 10:09 Dose: 100 mls/hr Losartan Potassium (Cozaar -) 25 mg PO DAILY [facility] Last Admin: 06/23/17 10:09 Dose: 25 mg Metoprolol Tartrate (Lopressor -) 25 mg PO BID [facility] Last Admin: 06/23/17 10:09 Dose: 25 mg Pantoprazole Sodium (Protonix -) 40 mg PO BID [facility] Last Admin: 06/23/17 10:09 Dose: 40 mg Polyethylene Glycol (Miralax (For Daily Use) -) 17 gm PO BID [facility] Last Admin: 06/23/17 10:08 Dose: 17 gm Prednisone (Deltasone -) 20 mg PO DAILY [facility] Last Admin: 06/23/17 10:09 Dose: 20 mg Senna (Senna -) 2 tab PO HS [facility] Last Admin: 12/13/17 23:54 Dose: 2 tab - Objective Vital Signs: Vital Signs Temperature 98.4 F 06/23/17 08:00 Pulse Rate 87 06/23/17 10:04 Respiratory Rate 16 06/23/17 08:00 Blood Pressure 114/50 06/23/17 08:00 O2 Sat by Pulse Oximetry (%) 98 06/23/17 10:04 Constitutional: Yes: No Distress Eyes: Yes: Conjunctiva Clear, Other (R facial palsy) Cardiovascular: Yes: Regular Rate and Rhythm, S1, S2 Respiratory: Yes: Other (+ crepitations at bases bilaterally) Gastrointestinal: Yes: Normal Bowel Sounds, Soft. No: Tenderness Edema: Yes Labs: CBC, BMP 06/23/17 05:05 06/23/17 05:05 INR, PTT INR 1.17 (0.82-1.09) H 06/18/17 03:35 Assessment/Plan Probable aspiration L pneumonia S/P esophageal dilatation Await c/s Continue empiric zosyn
[2017-06-23] MEDS ORDERED: FUROSEMIDE 40 MG/4 ML INJECTABLE VIAL IVPUSH ONE (11:15)
--- NOTE | 2017-06-23 11:36 | EKG ---
Test Reason : Blood Pressure : / mmHG Vent. Rate : 142 BPM Atrial Rate : 073 BPM P-R Int : 186 ms QRS Dur : 136 ms QT Int : 326 ms P-R-T Axes : 240 155 076 degrees QTc Int : 501 ms ATRIAL FIBRILLATION WITH RAPID VENTRICULAR RESPONSE RIGHT BUNDLE BRANCH BLOCK LEFT POSTERIOR FASCICULAR BLOCK BIFASCICULAR BLOCK INFERIOR INFARCT (CITED ON OR BEFORE 21-MAY-2017) MARKED T WAVE ABNORMALITY, CONSIDER LATERAL ISCHEMIA ABNORMAL ECG Confirmed by OMID COURTNEY MD ([id number]) on 06/23/2017 11:35:30 AM Referred By: Confirmed By:OMID COURTNEY MD
--- NOTE | 2017-06-23 12:18 | PN ---
Progress Note, Physician History of Present Illness: No events. Coughing. Still has oropharyngeal sorness. Had soft breakfast. Reports lack of appetite. - Current Medication List Current Medications: Active Medications Albuterol Sulfate (Ventolin Hfa Inhaler -) 2 puff IH Q4H PRN PRN Reason: SHORT OF BREATH/WHEEZING Last Admin: 06/23/17 11:49 Dose: 2 puff Albuterol/Ipratropium (Duoneb -) 1 amp NEB Q4H PRN PRN Reason: SHORTNESS OF BREATH Artificial Tears (Artificial Tears) 1 drop OU Q4H [facility] Last Admin: 06/23/17 08:30 Dose: 1 drop Bacitracin/Polymyxin B Sulfate (Polysporin Ophthalmic Ointment -) 1 applic OD BID [facility] Last Admin: 06/23/17 08:30 Dose: 1 applic Docusate Sodium (Colace -) 100 mg PO TID [facility] Last Admin: 06/23/17 05:34 Dose: 100 mg Enoxaparin Sodium (Lovenox -) 40 mg SQ DAILY [facility] Last Admin: 06/23/17 10:08 Dose: 40 mg Furosemide (Lasix -) 40 mg PO Q48H [facility] Last Admin: 06/22/17 15:00 Dose: Not Given Piperacillin Sod/Tazobactam (Sod 3.375 gm/ Dextrose) 50 mls @ 100 mls/hr IVPB Q8H-IV [facility] PRN Reason: Protocol Last Admin: 06/23/17 10:09 Dose: 100 mls/hr Losartan Potassium (Cozaar -) 12.5 mg PO DAILY [facility] Metoprolol Tartrate (Lopressor -) 25 mg PO BID [facility] Last Admin: 06/23/17 10:09 Dose: 25 mg Pantoprazole Sodium (Protonix -) 40 mg PO BID [facility] Last Admin: 06/23/17 10:09 Dose: 40 mg Polyethylene Glycol (Miralax (For Daily Use) -) 17 gm PO BID [facility] Last Admin: 06/23/17 10:08 Dose: 17 gm Prednisone (Deltasone -) 20 mg PO DAILY [facility] Last Admin: 06/23/17 10:09 Dose: 20 mg Senna (Senna -) 2 tab PO HS [facility] Last Admin: 06/22/17 23:54 Dose: 2 tab - Objective Vital Signs: Vital Signs Temperature 98.4 F 06/23/17 08:00 Pulse Rate 87 06/23/17 10:04 Respiratory Rate 16 06/23/17 08:00 Blood Pressure 114/50 06/23/17 08:00 O2 Sat by Pulse Oximetry (%) 98 06/23/17 10:04 Constitutional: Yes: No Distress, Calm Eyes: Yes: Conjunctiva Clear Gastrointestinal: Yes: Soft. No: Tenderness Neurological: Yes: Alert, Oriented Labs: CBC, BMP 06/23/17 05:05 06/23/17 05:05 INR, PTT INR 1.17 (0.82-1.09) H 06/18/17 03:35 - ....Imaging X-ray: Report Reviewed Problem List - Problems (1) Abnormal findings on radiological examination of gastrointestinal tract Code(s): R93.3 - ABNORMAL FINDINGS ON DX IMAGING OF PRT DIGESTIVE TRACT Assessment/Plan Tolerating soft diet continue current care and diet today will follow
--- NOTE | 2017-06-23 12:26 | PN ---
Progress Note (short form) - Note Progress Note: PULMONARY AWAKE/ALERT/OOB TO CHAIR BLOOD STREAKED SPUTUM VSS/AFEBRILE ANICTERIC/RIGHT FACIAL NERVE PALSY(WOOTEN'S) SCATTERED CRACKLES ON RIGHT S1S2 IRREGULAR(RATE CONTROLLED) BS+ SOFT NO EDEMA HGB 9.7 BUN17 CR 1.1 LABS/MEDS/IMAGES REVIEWED AF w rapid ventricular response post EGD resolved Pulmonary edema vs aspiration given radiograph findings and clearing with diuretic hemoptysis this am COPD CAD Pulmonary HTN Atrial Fibrillation s/p cryomaze procedure/history of GI bleed precluding anticoagulation Lymphoma low grade ASD repair - rate control/BP monitoring/parameters for meds - ID/Cardio eval - O2 to keep SpO2 >90% - inhaled bronchodilators - PO as tolerated, will likely need dietary supplementation - needs short term rehab - Cat scan chest for hemoptysis Felix ELIZABETH MD
--- NOTE | 2017-06-23 13:20 | PN ---
Teaching Attending Note Name of Resident: Heath Warren ATTENDING PHYSICIAN STATEMENT I saw and evaluated the patient. I reviewed the resident's note and discussed the case with the resident. I agree with the resident's findings and plan as documented. SUBJECTIVE:c/o hemoptysis persisting since yesterday, started having food sticking sensation that started last night only to solids similar to symptoms prior to EGD. denies CP, SOB, fever, chills, N/V/C/D OBJECTIVE: Last Vital Signs Temp Pulse Resp BP Pulse Ox 98.4 F 87 16 114/50 98 06/23/17 08:00 06/23/17 10:04 06/23/17 08:00 06/23/17 08:00 06/23/17 10:04 General NAD HEENT R side facial droop CV s1 s2 RRR Lungs CTA B/L no wheezing/rales/rhonchi ASSESSMENT AND PLAN: 87 yo M with PMHx of COPD on 2L home oxygen, Afib (not on anti-coagulation), prior GIB, low grade lymphoma with pancytopenia, CAD with 1 vessel disease, recent admission with Cardenas's palsy admitted with weakness, poor oral intake and constipation. 1. Generalized weakness - likely due to poor oral intake. now improved. agreeable to BENY. 2. Afib with RVR- likely due to medications being held. rate is now controlled. cont home medications. refused anticoagulation. cardio consulted 3. Fever- afebrile. questionable HCAP with L infiltrate. started on Zosyn. repeat CXR ordered. check sputum Cx. will f/u. ID on board 4. Hemoptysis- likely due to EGD. Hgb stable. monitor 5. Dysphagia-s/p EGD 06/21. with balloon dilation at [facility]. starting to have food sticking sensation again. request swallow therapist to re-evaluate. states at home he takes ranitidine prior to eating with improvement. will start that here. conisder starting ccb for possible esophageal spasms. will need to conisder botox injections if not tolerating. 6. HTN-low BP this AM. will reduce losartan at this time. monitor 7. 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 maintain eye patch. on steroids 9. DVT ppx- lovenox 10. DNR/DNI. 11. BENY when medically optimized
[2017-06-23] MEDS ORDERED: RANITIDINE HCL 150 MG TABLET (FP) PO SCH (13:30)
--- NOTE | 2017-06-23 15:05 | PN ---
Progress Note (short form) - Note Progress Note: ADDENDUM TO PULMONARY NOTE CT CHEST REVEALS EXTENSIVE INFILTRATE ON LEFT WITH MINIMAL EFFUSION AND PATCHY NODULAR INFILTRATE ON RIGHT CONTINUE IV ANTIBIOTICS PER ID/O2/BRONCHODILATORS Felix ELIZABETH MD
--- NOTE | 2017-06-23 15:33 | PN ---
Progress Note, [employer] - Note Progress Note: Pt reports that his swallowing is worse, and that he vomited a little after breakfast and more after lunch. He reported food coming back up. I suspect this is related to diet upgrade and persistent impairment of esophageal emptying. Official read of CT chest pending. I reviewed with radiologist who stated no gross abnormalities, bilat infitrates improving,mildly dilated esophagus. IMP:Esophagus was dilated during EGD. r/o early Achalasia by manometry in future vs dysmoltility with resulting impaired esioph emptying. Suggest: f/u by GI Diet downgrade to Dysphagia puree/soup/thin liquid,extra gravy. Ensure/ice cream one soft sweet dessert per pt's request, eg fruit pie, cream pie Several small meals throughout the day. Slow intake. Alternate puree with liquid. Upright for 1 hour after meals and no po intake for 1-2 hours before bedtime.
--- NOTE | 2017-06-23 16:55 | PN ---
Physical Exam: SUBJECTIVE: Patient seen and examined at bedside. He states that he has had bloody, streaky sputum produced when he coughs. Denies shortness of breath or chest pain. States that he has worsening dysphagia and ability to swallow. OBJECTIVE: Vital Signs Period Temp Pulse Resp BP Sys/Brian Pulse Ox Last 24 Hr 98.0 F-98.9 F 68-89 16-20 110-121/50-76 96-98 GENERAL: The patient is awake, alert, and fully oriented, in no acute distress. HEAD: Normal with no signs of trauma. EYES: R sclera moderately erythematous improved since yesterday, R eye open and unable to close - eyepatch present on R eye. ENT: Ears normal, nares patent, oropharynx clear without exudates, moist mucous membranes. Bloody sputum expectorated LUNGS: Crackles heard in L more than R side of chest, no accessory muscle use. HEART: Regular rate and rhythm, S1, S2 without murmur, rub or gallop. ABDOMEN: Soft, nontender, nondistended, normoactive bowel sounds, no guarding, no rebound, no hepatosplenomegaly, no masses. NEUROLOGICAL: Cranial nerve VII on the R is not currently functional, facial droop present. Rest of cranial nerves intact. SKIN: Warm, dry, normal turgor, no rashes or lesions noted Laboratory Results - last 24 hr 06/23/17 06/23/17 05:05 05:05 WBC 2.5 L D RBC 3.20 L Hgb 9.7 L Hct 29.7 L MCV 92.8 MCH 30.1 MCHC 32.5 RDW 16.4 H Plt Count 148 MPV 7.4 L Sodium 137 Potassium 4.0 Chloride 98 Carbon Dioxide 34 H Anion Gap 5 L BUN 17 Creatinine 1.0 Random Glucose 109 H Calcium 8.3 L Magnesium 2.3 Active Medications Generic Name Dose Route Start Last Admin Trade Name Freq PRN Reason Stop Dose Admin Albuterol Sulfate 2 puff 06/18/17 11:09 06/23/17 11:49 Ventolin Hfa Inhaler - IH 2 puff Q4H PRN Administration SHORT OF BREATH/WHEEZING Albuterol/Ipratropium 1 amp 06/21/17 15:14 Duoneb - NEB Q4H PRN SHORTNESS OF BREATH Artificial Tears 1 drop 06/19/17 12:45 06/23/17 13:55 Artificial Tears OU 1 drop Q4H [facility] Administration Bacitracin/Polymyxin B Sulfate 1 applic 06/18/17 22:00 06/23/17 08:30 Polysporin Ophthalmic Ointment - OD 1 applic BID [facility] Administration Docusate Sodium 100 mg 06/18/17 14:00 06/23/17 16:02 Colace - PO 100 mg TID [facility] Administration Enoxaparin Sodium 40 mg 06/19/17 10:00 06/23/17 10:08 Lovenox - SQ 40 mg DAILY [facility] Administration Furosemide 40 mg 06/22/17 14:45 06/22/17 15:00 Lasix - PO Not Given Q48H [facility] Piperacillin Sod/Tazobactam 50 mls @ 100 mls/hr 06/23/17 02:00 06/23/17 10:09 Sod 3.375 gm/ Dextrose IVPB 100 mls/hr Q8H-IV [facility] Administration Protocol Losartan Potassium 12.5 mg 06/24/17 10:00 Cozaar - PO DAILY [facility] Metoprolol Tartrate 25 mg 06/18/17 22:00 06/23/17 10:09 Lopressor - PO 25 mg BID [facility] Administration Pantoprazole Sodium 40 mg 06/18/17 22:00 06/23/17 10:09 Protonix - PO 40 mg BID [facility] Administration Polyethylene Glycol 17 gm 06/18/17 22:00 06/23/17 10:08 Miralax (For Daily Use) - PO 17 gm BID [facility] Administration Prednisone 20 mg 06/18/17 18:30 06/23/17 10:09 Deltasone - PO 20 mg DAILY [facility] Administration Ranitidine HCl 150 mg 06/23/17 17:00 Zantac - PO BID@1130,1700 [facility] Senna 2 tab 06/18/17 22:00 06/22/17 23:54 Senna - PO 2 tab HS [facility] Administration ASSESSMENT/PLAN: 87 year old male with a pmh of HTN, HLD, CAD, Atrial fibrillation not on AC due to hx of GI bleeds, heart failure with preserved ejection fraction, pulmonary HTN, COPD on home O2, chronic pancytopenia, CKD, and bells palsy is admitted to the hospital for weakness and decreased PO intake. #Aspiration pneumonia: CXR shows infiltrates bilaterally, r/o pneumonia, CT confirms infiltrates in L lung -appreciate ID consult Dr. Rendon -f/u sputum -continue zosyn -continue albuterol #Dysphagia 2/2 [place] Palsy: possibly secondary to quiles's palsy, Rosibel Pandey consulted again for dysphagia: -downgrade diet to dysphagia puree/soup/thin liquid, extra gravy, Add ensures/ ice cream. Alternate puree with liquid -encourage nutritional supplementation -patient is s/p EGD by Dr. Renteria: found smooth muscular narrowing above the gastroesophageal junction, balloon passed -continue prednisone #Atrial Fibrillation with Rapid Ventricular Response: rate controlled -patient transferred to telemetry -continue metoprolol 25mg PO BID for rate control #Weakness: resolved today #R Eye Erythema and [place] Palsy Affecting R Eye: -continue polymixin B ointment -continue artificial tears -f/u as outpatient with home care nurse Dr. Treviño #Hypertension: controlled today 121/54 -continue cozaar 25 PO daily -continue lopressor 25mg PO BID -lasix held -hold fluids #COPD: no acute issues -continue duonebs PRN #Constipation: not an acute issue -continue Senna -continue miralax -continue colace #Atrial fibrillation: controlled -no anticoagulation due to history of GI bleeds -continue metoprolol to help rate control #FEN hold fluids replete electrolytes as necessary f/u barium swallow for dietary reccs Proph Lovenox 40mg subq Disposition Continue to monitor on med-surg Discharge planning, will need to go to SNF Visit type - Emergency Visit Emergency Visit: No - New Patient This patient is new to me today: No - Critical Care Critical Care patient: No
--- NOTE | 2017-06-23 17:27 | CONS ---
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 Evaluated for probable aspiration pneumonia. The patient was admitted to the hospital on 06/20/2017 with complaints of anorexia, dysphagia, and cough. He was seen in consultation by GI. He was found to have an esophageal stricture. The patient was taken to the endoscopy suite where an EGD was performed and esophageal dilatation performed. Post procedure he developed rapid atrial fibrillation with excessive oropharyngeal secretions and cough . He spiked a temperature to 100.6. Cultures were obtained, and chest x-ray shows a new left-sided infiltrate. He denies any chest pain or dyspnea. He does have cough with wedged sputum production. No complaints of shaking chills. PAST MEDICAL HISTORY: Positive for marginal zone lymphoma. History of recent Cardenas's palsy for which he was hospitalized earlier last month . History of oxygen and steroid dependent COPD, atrial fibrillation, hypertension, hyperlipidemia, gastrointestinal bleeding, coronary artery disease, pulmonary hypertension. ALLERGIES: No known allergies. MEDICATION: Cozaar, Ventolin, Lopressor, Protonix, Lasix, spironolactone, prednisone. SOCIAL HISTORY: Lives at home with family. He is a nonsmoker. SYSTEMS REVIEW: Neurologic: Positive for Cardenas's palsy. Cardiac: As per HPI. Respiratory: As per HPI. Gastrointestinal: Negative vomiting or diarrhea. Genitourinary: Negative for urinary tract infection. LABORATORY DATA: White count 3.8. No differential. Hematocrit 31.2, platelet count 159, BUN 18, creatinine 1.0, influenza swab negative, blood cultures pending. PHYSICAL EXAMINATION: General: He is out of bed to chair he is in no acute respiratory distress. Vital signs: Temperature 98.3, T-max 100.6, blood pressure 97/47, pulse 64 regular, respirations 18 per minute, positive right facial palsy. Neck: Supple. Cardiovascular: Heart sounds irregular S1, S2. Respiratory: Lungs crepitations at the bases bilaterally. Abdomen: Soft. No tenderness elicited. Extremities: 1+ edema. IMPRESSION: Low-grade temperature and cough status post esophageal dilatation, chest x-ray with what appears to be a new left-sided infiltrate. Probable aspiration pneumonia. Cultures have been obtained. Advised empiric treatment with Zosyn 3.375 g IV piggyback every 8 hours pending culture results. Will follow. Thank you for the kind referral. CAREN FOLEY M.D. [facility]/[id number]
[2017-06-23] MEDS: RANITIDINE HCL 150 MG TABLET (FP) PO SCH (17:31)
[2017-06-23] MEDS: SENNOSIDES 8.6MG TABLET (FP) PO SCH (21:32)
[2017-06-24] MEDS ORDERED: PT OWN MED DRAWER 7, Y5N ONE ×2 (01:14→16:31)
[2017-06-24] MEDS: ARTIFICIAL TEARS (POLYVINYL ALCOHOL 1.4%) OPTH DROPS OU SCH ×6 (01:45→21:36)
[2017-06-24] MEDS: PIPERACILLIN/TAZOB 3.375 GM 3.375 GM in DEXTROSE 5%-WATER - 50 ML IVPB SCH ×3 (02:09→17:30)
--- NOTE | 2017-06-24 06:25 | PN ---
Physical Exam: SUBJECTIVE: Patient seen and examined at bedside. Patient is still coughing productive of blood tinged sputum. States that it is worse than yesterday. Patient states that if he eats slowly, he is able to pass food down. Denies chest pain, shortness of breath. OBJECTIVE: Vital Signs Period Temp Pulse Resp BP Sys/Brian Pulse Ox Last 24 Hr 97.8 F-98.4 F 65-87 16-20 114-124/50-60 97-98 GENERAL: The patient is awake, alert, and fully oriented, in no acute distress. HEAD: Normal with no signs of trauma. EYES: R sclera moderately erythematous, R eye open and unable to close - eyepatch present on R eye. ENT: Ears normal, nares patent, oropharynx clear without exudates, moist mucous membranes. Bloody sputum expectorated LUNGS: Crackles heard in L more than R side of chest, improved since yesterday, no accessory muscle use. HEART: Regular rate and rhythm, S1, S2 without murmur, rub or gallop. ABDOMEN: Soft, nontender, nondistended, normoactive bowel sounds, no guarding, no rebound, no hepatosplenomegaly, no masses. NEUROLOGICAL: Cranial nerve VII on the R is not currently functional, facial droop present. Rest of cranial nerves intact. SKIN: Warm, dry, normal turgor, no rashes or lesions noted Laboratory Results - last 24 hr 06/23/17 06/23/17 05:05 05:05 WBC 2.5 L D RBC 3.20 L Hgb 9.7 L Hct 29.7 L MCV 92.8 MCH 30.1 MCHC 32.5 RDW 16.4 H Plt Count 148 MPV 7.4 L Sodium 137 Potassium 4.0 Chloride 98 Carbon Dioxide 34 H Anion Gap 5 L BUN 17 Creatinine 1.0 Random Glucose 109 H Calcium 8.3 L Magnesium 2.3 Active Medications Generic Name Dose Route Start Last Admin Trade Name Freq PRN Reason Stop Dose Admin Albuterol Sulfate 2 puff 06/18/17 11:09 06/23/17 11:49 Ventolin Hfa Inhaler - IH 2 puff Q4H PRN Administration SHORT OF BREATH/WHEEZING Albuterol/Ipratropium 1 amp 06/21/17 15:14 Duoneb - NEB Q4H PRN SHORTNESS OF BREATH Artificial Tears 1 drop 06/19/17 12:45 06/24/17 01:45 Artificial Tears OU Not Given Q4H RUBIA Bacitracin/Polymyxin B Sulfate 1 applic 06/18/17 22:00 06/23/17 21:40 Polysporin Ophthalmic Ointment - OD 1 applic BID RUBIA Administration Docusate Sodium 100 mg 06/18/17 14:00 06/23/17 21:33 Colace - PO 100 mg TID RUBIA Administration Enoxaparin Sodium 40 mg 06/19/17 10:00 06/23/17 10:08 Lovenox - SQ 40 mg DAILY RUBIA Administration Furosemide 40 mg 06/22/17 14:45 06/22/17 15:00 Lasix - PO Not Given Q48H RUBIA Piperacillin Sod/Tazobactam 50 mls @ 100 mls/hr 06/23/17 02:00 06/24/17 02:09 Sod 3.375 gm/ Dextrose IVPB 100 mls/hr Q8H-IV RUBIA Administration Protocol Losartan Potassium 12.5 mg 06/24/17 10:00 Cozaar - PO DAILY RUBIA Metoprolol Tartrate 25 mg 06/18/17 22:00 06/23/17 21:33 Lopressor - PO 25 mg BID RUBIA Administration Pantoprazole Sodium 40 mg 06/18/17 22:00 06/23/17 21:32 Protonix - PO 40 mg BID RUBIA Administration Polyethylene Glycol 17 gm 06/18/17 22:00 06/23/17 21:38 Miralax (For Daily Use) - PO Not Given BID RUBIA Prednisone 20 mg 06/18/17 18:30 06/23/17 10:09 Deltasone - PO 20 mg DAILY RUBIA Administration Ranitidine HCl 150 mg 06/23/17 17:00 06/23/17 17:31 Zantac - PO 150 mg BID@1130,1700 RUBIA Administration Senna 2 tab 06/18/17 22:00 06/23/17 21:32 Senna - PO 2 tab HS RUBIA Administration ASSESSMENT/PLAN: 87 year old male with a pmh of HTN, HLD, CAD, Atrial fibrillation not on AC due to hx of GI bleeds, heart failure with preserved ejection fraction, pulmonary HTN, COPD on home O2, chronic pancytopenia, CKD, and bells palsy is admitted to the hospital for weakness and decreased PO intake. #Aspiration pneumonia: CXR shows infiltrates bilaterally, r/o pneumonia, CT confirms infiltrates in L lung -appreciate ID consult Dr. Rendon -f/u sputum -continue zosyn -continue albuterol #Dysphagia 2/2 [place] Palsy: possibly secondary to quiles's palsy, Rosibel Pandey consulted again for dysphagia: -diet is dysphagia puree/soup/thin liquid, extra gravy, Add ensures/ice cream. Alternate puree with liquid -patient is s/p EGD by Dr. Renteria: found smooth muscular narrowing above the gastroesophageal junction, balloon passed -continue prednisone #Atrial Fibrillation with Rapid Ventricular Response: rate controlled -on tele -continue metoprolol 25mg PO BID for rate control #Weakness: resolved today #R Eye Erythema and [place] Palsy Affecting R Eye: -continue polymixin B ointment -continue artificial tears -f/u as outpatient with deputy k 9 Dr. Treviño #Hypertension: controlled -continue cozaar 25 PO daily -continue lopressor 25mg PO BID -lasix held -hold fluids #COPD: no acute issues -continue duonebs PRN #Constipation: not an acute issue -continue Senna -continue miralax -continue colace #Atrial fibrillation: controlled -no anticoagulation due to history of GI bleeds -continue metoprolol to help rate control #FEN hold fluids replete electrolytes as necessary f/u barium swallow for dietary reccs Proph Lovenox 40mg subq Disposition Continue to monitor on med-surg Discharge planning, will need to go to SNF Visit type - Emergency Visit Emergency Visit: No - New Patient This patient is new to me today: No - Critical Care Critical Care patient: No
[2017-06-24] MEDS: DOCUSATE SODIUM 100 MG CAPSULE (FP) PO SCH ×3 (06:43→21:36)
[2017-06-24 08:00] LABS: MCH 30.2 pg (25.7-33.7); MCHC 32.8 g/dl (32.0-35.9); MEAN CELL VOLUME 92.2 fl (80-96); MEAN PLT VOLUME 7.5 fl (7.5-11.1); PLATELET COUNT 176 K/MM3 (134-434); RDW 16.4 % (11.9-15.9); WHITE BLOOD COUNT 2.9 K/mm3 (4.0-10.0)
--- NOTE | 2017-06-24 08:11 | PN ---
Progress Note (short form) - Note Progress Note: Pulmonary note addendum Bilateral infiltrates may likely be due to chronic aspiration given EGD findings. Have adjusted diet as per Rosibel Pandey, continue antibiotics/o2/bronchodilators. Will re-eval later today. Felix ELIZABETH MD
[2017-06-24 08:23] LABS: ANION GAP 7 (8-16); CALCIUM 8.7 mg/dL (8.5-10.1); CO2 37 mmol/L (21-32); GLUCOSE,RANDOM 87 mg/dL (74-106)
[2017-06-24] MEDS: BACITRACIN/POLYMYXIN OPH OINT 3.5 GM TUBE OD SCH ×2 (09:45→21:36)
[2017-06-24] MEDS: METOPROLOL TARTRATE 25 MG TABLET (FP) PO SCH ×2 (09:46→21:36)
[2017-06-24] MEDS: LOSARTAN POTASSIUM 25 MG TABLET PO SCH (09:46)
[2017-06-24] MEDS: PANTOPRAZOLE 40 MG TABLET (FP) PO SCH ×2 (09:47→21:36)
[2017-06-24] MEDS: ENOXAPARIN NA (PORCINE) 40 MG/0.4 ML DISP.SYRIN SQ SCH (09:47)
[2017-06-24] MEDS: predniSONE 20 MG TABLET (UD) PO SCH (09:47)
[2017-06-24] MEDS: POTASSIUM CHLORIDE TABS 20 MEQ TABLET.ER (FP) PO ONE ×2 (09:51→10:01)
[2017-06-24] MEDS: POLYETHYLENE GLYCOL 3350 119 GM BTL PO SCH ×2 (10:00→21:37)
--- NOTE | 2017-06-24 10:34 | PN ---
Progress Note, Physician History of Present Illness: No events. Coughing. Reports no vomiting after breakfast this am. - Current Medication List Current Medications: Active Medications Albuterol Sulfate (Ventolin Hfa Inhaler -) 2 puff IH Q4H PRN PRN Reason: SHORT OF BREATH/WHEEZING Last Admin: 06/23/17 11:49 Dose: 2 puff Albuterol/Ipratropium (Duoneb -) 1 amp NEB Q4H PRN PRN Reason: SHORTNESS OF BREATH Artificial Tears (Artificial Tears) 1 drop OU Q4H [facility] Last Admin: 06/24/17 05:10 Dose: Not Given Bacitracin/Polymyxin B Sulfate (Polysporin Ophthalmic Ointment -) 1 applic OD BID [facility] Last Admin: 06/23/17 21:40 Dose: 1 applic Docusate Sodium (Colace -) 100 mg PO TID [facility] Last Admin: 06/24/17 06:43 Dose: 100 mg Enoxaparin Sodium (Lovenox -) 40 mg SQ DAILY [facility] Last Admin: 06/23/17 10:08 Dose: 40 mg Furosemide (Lasix -) 40 mg PO Q48H [facility] Last Admin: 06/22/17 15:00 Dose: Not Given Piperacillin Sod/Tazobactam (Sod 3.375 gm/ Dextrose) 50 mls @ 100 mls/hr IVPB Q8H-IV [facility] PRN Reason: Protocol Last Admin: 06/24/17 02:09 Dose: 100 mls/hr Losartan Potassium (Cozaar -) 12.5 mg PO DAILY [facility] Metoprolol Tartrate (Lopressor -) 25 mg PO BID [facility] Last Admin: 06/23/17 21:33 Dose: 25 mg Pantoprazole Sodium (Protonix -) 40 mg PO BID [facility] Last Admin: 06/23/17 21:32 Dose: 40 mg Polyethylene Glycol (Miralax (For Daily Use) -) 17 gm PO BID [facility] Last Admin: 06/23/17 21:38 Dose: Not Given Potassium Chloride (K-Dur -) 20 meq PO ONCE ONE Stop: 06/24/17 10:01 Prednisone (Deltasone -) 20 mg PO DAILY [facility] Last Admin: 06/23/17 10:09 Dose: 20 mg Ranitidine HCl (Zantac -) 150 mg PO BID@1130,1700 [facility] Last Admin: 06/23/17 17:31 Dose: 150 mg Senna (Senna -) 2 tab PO HS [facility] Last Admin: 06/23/17 21:32 Dose: 2 tab - Objective Vital Signs: Vital Signs Temperature 97.1 F L 06/24/17 08:00 Pulse Rate 70 06/24/17 08:00 Respiratory Rate 18 06/24/17 08:00 Blood Pressure 114/46 06/24/17 08:00 O2 Sat by Pulse Oximetry (%) 92 L 06/24/17 09:00 Labs: CBC, BMP 06/24/17 05:37 06/24/17 05:37 INR, PTT INR 1.17 (0.82-1.09) H 06/18/17 03:35 Problem List - Problems (1) Abnormal findings on radiological examination of gastrointestinal tract Code(s): R93.3 - ABNORMAL FINDINGS ON DX IMAGING OF PRT DIGESTIVE TRACT Assessment/Plan Presbyesophagus with esophageal dysmotility and a distal, smooth, muscular narrowing (? achalasia) of the esophagus. The patient still has difficulties with solid food despite the TTS balloonintervention. Esophageal manometry followed by LES botox injection, if achalasia is diagnosed, may temporarily alleviate this, however, the presbyesophagus/dysmotility will continue to be a source of dysphagia even after botox therapy. Agree with recommended diet. Modified barium esophagogram ?Botox will follow
--- NOTE | 2017-06-24 11:30 | PN ---
Teaching Attending Note Name of Resident: Heath Warren ATTENDING PHYSICIAN STATEMENT I saw and evaluated the patient. I reviewed the resident's note and discussed the case with the resident. I agree with the resident's findings and plan as documented. SUBJECTIVE:states he is tolerating puree diet. less sticking sensation. hemoptysis improved. denies Cp, SOB, fever, chills, N/V/C/D OBJECTIVE: Last Vital Signs Temp Pulse Resp BP Pulse Ox 97.1 F L 70 18 114/46 92 L 06/24/17 08:00 06/24/17 08:00 06/24/17 08:00 06/24/17 08:00 06/24/17 09:00 General NAD HEENT R side facial droop CV s1 s2 RRR Lungs rhonchi B/L bases ASSESSMENT AND PLAN: 87 yo M with PMHx of COPD on 2L home oxygen, Afib (not on anti-coagulation), prior GIB, low grade lymphoma with pancytopenia, CAD with 1 vessel disease, recent admission with Cardenas's palsy admitted with weakness, poor oral intake and constipation. 1. Generalized weakness - likely due to poor oral intake. now improved. agreeable to BENY. 2. Afib with RVR- likely due to medications being held. rate is now controlled. cont home medications. refused anticoagulation. cardio consulted 3. B/L PNA- improved. afebrile. on Zosyn day 3. ID on board. will discuss when to convert to po. sputum Cx 4. Hemoptysis- likely due to EGD. improving. Hgb stable. monitor 5. Dysphagia-s/p EGD 06/21. with balloon dilation at [facility]. downgraded to puree diet and tolerating well. GI to do esophogram and possible botox injections. 6. HTN-improved. monitor 7. 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 maintain eye patch. on steroids. will decrease to home dose 15mg 9. DVT ppx- lovenox 10. DNR/DNI. 11. BENY when medically optimized
[2017-06-24] MEDS: RANITIDINE HCL 150 MG TABLET (FP) PO SCH ×2 (11:53→16:27)
--- NOTE | 2017-06-24 12:24 | PN ---
Progress Note (short form) - Note Progress Note: PULMONARY AWAKE/ALERT/ BLOOD STREAKED SPUTUM CONTINUES VSS/AFEBRILE ANICTERIC/RIGHT FACIAL NERVE PALSY(WOOTEN'S) SCATTERED CRACKLES ON RIGHT S1S2 IRREGULAR(RATE CONTROLLED) BS+ SOFT NO EDEMA HGB 10.1 BUN20 CR 1.0 LABS/MEDS/IMAGES REVIEWED AF w rapid ventricular response post EGD resolved Pulmonary aspiration given radiograph findings hemoptysis continues COPD CAD Pulmonary HTN Atrial Fibrillation s/p cryomaze procedure/history of GI bleed precluding anticoagulation Lymphoma low grade ASD repair - rate control/BP monitoring/parameters for meds - ID/Cardio f/u - O2 to keep SpO2 >90% - inhaled bronchodilators - diet adjusted - needs short term rehab - have decided to repeat MBS post esophageal dilatation Felix ELIZABETH MD
--- NOTE | 2017-06-24 13:22 | PN ---
Progress Note, Physician History of Present Illness: Afib rate-controlled, dyspnea at baseline, scant hemoptysis, still with dysphagia despite esophageal balloon dilatation. - Current Medication List Current Medications: Active Medications Albuterol Sulfate (Ventolin Hfa Inhaler -) 2 puff IH Q4H PRN PRN Reason: SHORT OF BREATH/WHEEZING Last Admin: 06/23/17 11:49 Dose: 2 puff Albuterol/Ipratropium (Duoneb -) 1 amp NEB Q4H PRN PRN Reason: SHORTNESS OF BREATH Artificial Tears (Artificial Tears) 1 drop OU Q4H [facility] Last Admin: 06/24/17 11:53 Dose: Not Given Bacitracin/Polymyxin B Sulfate (Polysporin Ophthalmic Ointment -) 1 applic OD BID [facility] Last Admin: 06/24/17 09:45 Dose: 1 applic Docusate Sodium (Colace -) 100 mg PO TID [facility] Last Admin: 06/24/17 06:43 Dose: 100 mg Enoxaparin Sodium (Lovenox -) 40 mg SQ DAILY [facility] Last Admin: 06/24/17 09:47 Dose: 40 mg Furosemide (Lasix -) 40 mg PO Q48H [facility] Last Admin: 06/22/17 15:00 Dose: Not Given Piperacillin Sod/Tazobactam (Sod 3.375 gm/ Dextrose) 50 mls @ 100 mls/hr IVPB Q8H-IV RUBIA PRN Reason: Protocol Last Admin: 06/24/17 09:47 Dose: 100 mls/hr Losartan Potassium (Cozaar -) 12.5 mg PO DAILY [facility] Last Admin: 06/24/17 09:46 Dose: 12.5 mg Metoprolol Tartrate (Lopressor -) 25 mg PO BID [facility] Last Admin: 06/24/17 09:46 Dose: 25 mg Pantoprazole Sodium (Protonix -) 40 mg PO BID [facility] Last Admin: 06/24/17 09:47 Dose: 40 mg Polyethylene Glycol (Miralax (For Daily Use) -) 17 gm PO BID [facility] Last Admin: 06/24/17 10:00 Dose: Not Given Prednisone (Deltasone -) 20 mg PO DAILY [facility] Last Admin: 06/24/17 09:47 Dose: 20 mg Ranitidine HCl (Zantac -) 150 mg PO BID@1130,1700 [facility] Last Admin: 06/24/17 11:53 Dose: Not Given Senna (Senna -) 2 tab PO HS [facility] Last Admin: 06/23/17 21:32 Dose: 2 tab - Objective Vital Signs: Vital Signs Temperature 97.1 F L 06/24/17 08:00 Pulse Rate 70 06/24/17 08:00 Respiratory Rate 18 06/24/17 08:00 Blood Pressure 114/46 06/24/17 08:00 O2 Sat by Pulse Oximetry (%) 92 L 06/24/17 09:00 Constitutional: Yes: No Distress, Calm Neck: Yes: Supple Cardiovascular: Yes: Pulse Irregular Respiratory: Yes: Regular, Diminished, On Nasal O2 Gastrointestinal: Yes: Soft, Hypoactive Bowel Sounds Edema: No Labs: CBC, BMP 06/24/17 05:37 06/24/17 05:37 INR, PTT INR 1.17 (0.82-1.09) H 06/18/17 03:35 - ....Imaging EKG: Report Reviewed (Tele: Rate-controlled afib) Problem List - Problems (1) Status post balloon dilatation of esophageal stricture Code(s): Z98.890 - OTHER SPECIFIED POSTPROCEDURAL STATES (2) B-cell lymphoma Code(s): C85.10 - UNSPECIFIED B-CELL LYMPHOMA, UNSPECIFIED SITE Qualifiers: B-cell lymphoma type: unspecified B-cell (3) COPD (chronic obstructive pulmonary disease) Code(s): J44.9 - CHRONIC OBSTRUCTIVE PULMONARY DISEASE, UNSPECIFIED Qualifiers: COPD type: unspecified COPD Qualified Code(s): J44.9 - Chronic obstructive pulmonary disease, unspecified (4) Pulmonary HTN Code(s): I27.20 - PULMONARY HYPERTENSION, UNSPECIFIED (5) Systolic and diastolic CHF, acute on chronic Code(s): I50.43 - ACUTE ON CHRONIC COMBINED SYSTOLIC AND DIASTOLIC HRT FAIL (6) Atrial fibrillation Code(s): I48.91 - UNSPECIFIED ATRIAL FIBRILLATION Qualifiers: Atrial fibrillation type: persistent Qualified Code(s): I48.1 - Persistent atrial fibrillation (7) CAD (coronary artery disease) Code(s): I25.10 - ATHSCL HEART DISEASE OF [place] CORONARY ARTERY W/O ANG PCTRS Qualifiers: Coronary Disease-Associated Artery/Lesion type: [place] artery [place] vs. transplanted heart: [place] heart Associated angina: without angina Qualified Code(s): I25.10 - Atherosclerotic heart disease of [place] coronary artery without angina pectoris (8) H/O atrial septal defect repair Code(s): Z98.89 - OTHER SPECIFIED POSTPROCEDURAL STATES * DO NOT USE *; Z87.74 - PERSONAL HISTORY OF CONGENITAL MALFORM OF HEART AND CIRC SYS (9) Hypercholesterolemia Code(s): E78.0 - PURE HYPERCHOLESTEROLEMIA * DO NOT USE * (10) Hypertension Code(s): I10 - ESSENTIAL (PRIMARY) HYPERTENSION Qualifiers: Hypertension type: essential hypertension Qualified Code(s): I10 - Essential (primary) hypertension (11) Right bundle branch block Code(s): I45.10 - UNSPECIFIED RIGHT BUNDLE-BRANCH BLOCK (12) Status post Maze operation for atrial fibrillation Code(s): Z98.890 - OTHER SPECIFIED POSTPROCEDURAL STATES; Z86.79 - PERSONAL HISTORY OF OTHER DISEASES OF THE CIRCULATORY SYSTEM (13) Achalasia of esophagus Code(s): K22.0 - ACHALASIA OF CARDIA Assessment/Plan 05/23/2017 Echo: Normal LV size and fxn, mod decreased RV fxn, severe MARTHA, mod TR, mild MR, mod pulm HTN RVSP 50-60 mmHg, mod AR 1. Atrial fibrillation w/ rapid ventricular response post EGD with TTS balloon dilatation -> achalasia 2. Acute on chronic diastolic failure referable to above 3. 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 Persistent atrial fibrillation post Cryo-Maze and NATE ligation, [id number] score of 5, currently off of A/C due to h/o GI bleed 5. 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 HTN 7. Hypercholesterolemia 8. ASD post surgical repair 9. History of hypercapneic respiratory failure, underlying COPD 10. Pancytopenia, low grade Lymphoma 11. 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 Continue Lopressor 25 bid and losartan 12.5 qd as hemodynamics permitting 2. Diuresis with monitor diuretic response, renal fxn and electrolytes 3. As outlined in prior notes recommend withholding A/C therapy indefinitely recognizing elevated stroke risk ([id number] score of 5) considering his history of recurrent GI bleed, patient not a candidate for Watchman device insertion, history of NATE ligation 4. BD, O2 to keep SpO2 >90%, PO as tolerated, will likely need dietary supplementation, oral steroids with GI and DVT prophylaxis 5. Modified barium esophagogram c/w achalasia with continued poor esophageal emptying, consider esophageal manometry and botox injections
--- NOTE | 2017-06-24 14:50 | PN ---
Progress Note, Physician History of Present Illness: OOB in chair. Eating pureed food Breathing non-labored Still with complaints of blood-streaked sputum, dysphagia No recurrent temp Cultures no growth - Current Medication List Current Medications: Active Medications Albuterol Sulfate (Ventolin Hfa Inhaler -) 2 puff IH Q4H PRN PRN Reason: SHORT OF BREATH/WHEEZING Last Admin: 06/23/17 11:49 Dose: 2 puff Albuterol/Ipratropium (Duoneb -) 1 amp NEB Q4H PRN PRN Reason: SHORTNESS OF BREATH Artificial Tears (Artificial Tears) 1 drop OU Q4H [facility] Last Admin: 06/24/17 11:53 Dose: Not Given Bacitracin/Polymyxin B Sulfate (Polysporin Ophthalmic Ointment -) 1 applic OD BID [facility] Last Admin: 06/24/17 09:45 Dose: 1 applic Botulinum Toxin Type A (Botox (Nf) -) 100 units NR ONCE ONE Stop: 06/27/17 09:01 Docusate Sodium (Colace -) 100 mg PO TID [facility] Last Admin: 06/24/17 13:59 Dose: Not Given Enoxaparin Sodium (Lovenox -) 40 mg SQ DAILY [facility] Last Admin: 06/24/17 09:47 Dose: 40 mg Furosemide (Lasix -) 40 mg PO Q48H [facility] Last Admin: 06/22/17 15:00 Dose: Not Given Piperacillin Sod/Tazobactam (Sod 3.375 gm/ Dextrose) 50 mls @ 100 mls/hr IVPB Q8H-IV [facility] PRN Reason: Protocol Last Admin: 06/24/17 09:47 Dose: 100 mls/hr Losartan Potassium (Cozaar -) 12.5 mg PO DAILY [facility] Last Admin: 06/24/17 09:46 Dose: 12.5 mg Metoprolol Tartrate (Lopressor -) 25 mg PO BID [facility] Last Admin: 06/24/17 09:46 Dose: 25 mg Pantoprazole Sodium (Protonix -) 40 mg PO BID [facility] Last Admin: 06/24/17 09:47 Dose: 40 mg Polyethylene Glycol (Miralax (For Daily Use) -) 17 gm PO BID [facility] Last Admin: 06/24/17 10:00 Dose: Not Given Prednisone (Deltasone -) 20 mg PO DAILY [facility] Last Admin: 06/24/17 09:47 Dose: 20 mg Ranitidine HCl (Zantac -) 150 mg PO BID@1130,1700 [facility] Last Admin: 06/24/17 11:53 Dose: Not Given Senna (Senna -) 2 tab PO HS [facility] Last Admin: 06/23/17 21:32 Dose: 2 tab - Objective Vital Signs: Vital Signs Temperature 97.1 F L 06/24/17 08:00 Pulse Rate 70 06/24/17 08:00 Respiratory Rate 18 06/24/17 08:00 Blood Pressure 114/46 06/24/17 08:00 O2 Sat by Pulse Oximetry (%) 92 L 06/24/17 09:00 Constitutional: Yes: No Distress Eyes: Yes: Other HENT: Yes: Other (+ R facial palsy) Cardiovascular: Yes: Regular Rate and Rhythm, S1, S2 Respiratory: Yes: Other (crepitations, bases) Gastrointestinal: Yes: Normal Bowel Sounds, Soft. No: Tenderness Edema: Yes Labs: CBC, BMP 06/24/17 05:37 06/24/17 05:37 INR, PTT INR 1.17 (0.82-1.09) H 06/18/17 03:35 Assessment/Plan Probable aspiration L pneumonia S/P esophageal dilatation Await sputum c/s Continue empiric zosyn
[2017-06-24] MEDS: FUROSEMIDE 40 MG TABLET (FP) PO SCH (16:26)
[2017-06-24] MEDS: SENNOSIDES 8.6MG TABLET (FP) PO SCH (21:37)
[2017-06-25] MEDS: ARTIFICIAL TEARS (POLYVINYL ALCOHOL 1.4%) OPTH DROPS OU SCH ×6 (01:19→20:51)
[2017-06-25] MEDS: PIPERACILLIN/TAZOB 3.375 GM 3.375 GM in DEXTROSE 5%-WATER - 50 ML IVPB SCH ×3 (02:22→17:09)
[2017-06-25] MEDS: DOCUSATE SODIUM 100 MG CAPSULE (FP) PO SCH ×3 (06:43→21:49)
[2017-06-25 07:09] LABS: MCHC 32.4 g/dl (32.0-35.9); MEAN CELL VOLUME 92.6 fl (80-96); MEAN PLT VOLUME 7.1 fl (7.5-11.1); PLATELET COUNT 166 K/MM3 (134-434); RDW 16.2 % (11.9-15.9)
[2017-06-25 07:35] LABS: ANION GAP 7 (8-16); CALCIUM 8.9 mg/dL (8.5-10.1); CO2 38 mmol/L (21-32); GLUCOSE,RANDOM 90 mg/dL (74-106)
[2017-06-25 07:36] LABS: CREATININE 1.1 mg/dL (0.7-1.3)
[2017-06-25] MEDS: predniSONE 20 MG TABLET (UD) PO SCH (09:32)
[2017-06-25] MEDS: ENOXAPARIN NA (PORCINE) 40 MG/0.4 ML DISP.SYRIN SQ SCH (09:32)
[2017-06-25] MEDS: METOPROLOL TARTRATE 25 MG TABLET (FP) PO SCH ×2 (09:32→21:49)
[2017-06-25] MEDS: LOSARTAN POTASSIUM 25 MG TABLET PO SCH (09:32)
[2017-06-25] MEDS: PANTOPRAZOLE 40 MG TABLET (FP) PO SCH ×2 (09:32→21:49)
[2017-06-25] MEDS: BACITRACIN/POLYMYXIN OPH OINT 3.5 GM TUBE OD SCH ×2 (09:33→21:54)
[2017-06-25] MEDS: POLYETHYLENE GLYCOL 3350 119 GM BTL PO SCH ×2 (09:33→21:50)
--- NOTE | 2017-06-25 11:58 | PN ---
Progress Note, Physician History of Present Illness: Seated in bed Breathing non-labored Still with complaints of blood-streaked sputum, dysphagia Afebrile Cultures no growth - Current Medication List Current Medications: Active Medications Albuterol Sulfate (Ventolin Hfa Inhaler -) 2 puff IH Q4H PRN PRN Reason: SHORT OF BREATH/WHEEZING Last Admin: 06/23/17 11:49 Dose: 2 puff Artificial Tears (Artificial Tears) 1 drop OU Q4H [facility] Last Admin: 06/25/17 09:33 Dose: 1 drop Bacitracin/Polymyxin B Sulfate (Polysporin Ophthalmic Ointment -) 1 applic OD BID [facility] Last Admin: 06/25/17 09:33 Dose: 1 applic Botulinum Toxin Type A (Botox (Nf) -) 100 units NR ONCE ONE Stop: 06/27/17 09:01 Docusate Sodium (Colace -) 100 mg PO TID [facility] Last Admin: 06/25/17 06:43 Dose: 100 mg Enoxaparin Sodium (Lovenox -) 40 mg SQ DAILY [facility] Last Admin: 06/25/17 09:32 Dose: 40 mg Furosemide (Lasix -) 40 mg PO Q48H [facility] Last Admin: 06/24/17 16:26 Dose: 40 mg Piperacillin Sod/Tazobactam (Sod 3.375 gm/ Dextrose) 50 mls @ 100 mls/hr IVPB Q8H-IV [facility] PRN Reason: Protocol Last Admin: 06/25/17 09:32 Dose: 100 mls/hr Losartan Potassium (Cozaar -) 12.5 mg PO DAILY [facility] Last Admin: 06/25/17 09:32 Dose: 12.5 mg Metoprolol Tartrate (Lopressor -) 25 mg PO BID [facility] Last Admin: 06/25/17 09:32 Dose: 25 mg Pantoprazole Sodium (Protonix -) 40 mg PO BID [facility] Last Admin: 06/25/17 09:32 Dose: 40 mg Polyethylene Glycol (Miralax (For Daily Use) -) 17 gm PO BID [facility] Last Admin: 06/25/17 09:33 Dose: Not Given Prednisone (Deltasone -) 20 mg PO DAILY [facility] Last Admin: 06/25/17 09:32 Dose: 20 mg Ranitidine HCl (Zantac -) 150 mg PO BID@1130,1700 [facility] Last Admin: 06/24/17 16:27 Dose: 150 mg Senna (Senna -) 2 tab PO HS [facility] Last Admin: 06/24/17 21:37 Dose: Not Given - Objective Vital Signs: Vital Signs Temperature 98.1 F 06/25/17 08:00 Pulse Rate 58 L 06/25/17 11:41 Respiratory Rate 20 06/25/17 08:00 Blood Pressure 119/69 06/25/17 08:00 O2 Sat by Pulse Oximetry (%) 100 06/25/17 11:41 Constitutional: Yes: No Distress Eyes: Yes: Conjunctiva Clear Cardiovascular: Yes: S1, S2 Respiratory: Yes: Other (+ crepitations, bases) Gastrointestinal: Yes: Normal Bowel Sounds, Soft. No: Tenderness Labs: CBC, BMP 06/25/17 05:05 06/25/17 05:05 INR, PTT INR 1.17 (0.82-1.09) H 06/18/17 03:35 Assessment/Plan Probable aspiration L pneumonia S/P esophageal dilatation Continue empiric zosyn
--- NOTE | 2017-06-25 12:28 | PN ---
Progress Note, Physician Chief Complaint: Not in distress History of Present Illness: Patient was seen and examined. Awake and alert. Chart was reviewed Denies chest pain, SOB or palpitations - Current Medication List Current Medications: Active Medications Albuterol Sulfate (Ventolin Hfa Inhaler -) 2 puff IH Q4H PRN PRN Reason: SHORT OF BREATH/WHEEZING Last Admin: 06/23/17 11:49 Dose: 2 puff Artificial Tears (Artificial Tears) 1 drop OU Q4H [facility] Last Admin: 06/25/17 09:33 Dose: 1 drop Bacitracin/Polymyxin B Sulfate (Polysporin Ophthalmic Ointment -) 1 applic OD BID [facility] Last Admin: 06/25/17 09:33 Dose: 1 applic Botulinum Toxin Type A (Botox (Nf) -) 100 units NR ONCE ONE Stop: 06/27/17 09:01 Docusate Sodium (Colace -) 100 mg PO TID [facility] Last Admin: 06/25/17 06:43 Dose: 100 mg Enoxaparin Sodium (Lovenox -) 40 mg SQ DAILY [facility] Last Admin: 06/25/17 09:32 Dose: 40 mg Furosemide (Lasix -) 40 mg PO Q48H [facility] Last Admin: 06/24/17 16:26 Dose: 40 mg Piperacillin Sod/Tazobactam (Sod 3.375 gm/ Dextrose) 50 mls @ 100 mls/hr IVPB Q8H-IV [facility] PRN Reason: Protocol Last Admin: 06/25/17 09:32 Dose: 100 mls/hr Losartan Potassium (Cozaar -) 12.5 mg PO DAILY [facility] Last Admin: 06/25/17 09:32 Dose: 12.5 mg Metoprolol Tartrate (Lopressor -) 25 mg PO BID [facility] Last Admin: 06/25/17 09:32 Dose: 25 mg Pantoprazole Sodium (Protonix -) 40 mg PO BID [facility] Last Admin: 06/25/17 09:32 Dose: 40 mg Polyethylene Glycol (Miralax (For Daily Use) -) 17 gm PO BID [facility] Last Admin: 06/25/17 09:33 Dose: Not Given Prednisone (Deltasone -) 20 mg PO DAILY [facility] Last Admin: 06/25/17 09:32 Dose: 20 mg Ranitidine HCl (Zantac -) 150 mg PO BID@1130,1700 [facility] Last Admin: 06/24/17 16:27 Dose: 150 mg Senna (Senna -) 2 tab PO HS [facility] Last Admin: 06/24/17 21:37 Dose: Not Given - Objective Vital Signs: Vital Signs Temperature 98.1 F 06/25/17 08:00 Pulse Rate 58 L 06/25/17 11:41 Respiratory Rate 20 06/25/17 08:00 Blood Pressure 119/69 06/25/17 08:00 O2 Sat by Pulse Oximetry (%) 100 06/25/17 11:41 Eyes: Yes: PERRL Neck: Yes: Supple Cardiovascular: Yes: Pulse Irregular, S1, S2 Respiratory: Yes: Diminished Gastrointestinal: Yes: Normal Bowel Sounds, Soft. No: Tenderness Edema: No Additional Findings/Remarks: Review of Systems Constitutional: Denies: Chills or Fever Cardiovascular: Denies: chest pain, shortness of breath, palpitations Respiratory: Denies: cough, sputum production, hemoptysis Gastrointestinal: Denies: Nausea, Vomiting, Diarrhea, Constipation, abdominal pain, melena, hematemesis Genitourinary: No symptoms reported Neurology: No seizures or syncope Labs: CBC, BMP 06/25/17 05:05 06/25/17 05:05 Problem List - Problems (1) Achalasia of esophagus Code(s): K22.0 - ACHALASIA OF CARDIA (2) Chronic respiratory failure with hypoxia and hypercapnia Code(s): J96.11 - CHRONIC RESPIRATORY FAILURE WITH HYPOXIA; J96.12 - CHRONIC RESPIRATORY FAILURE WITH HYPERCAPNIA (3) Status post Maze operation for atrial fibrillation Code(s): Z98.890 - OTHER SPECIFIED POSTPROCEDURAL STATES; Z86.79 - PERSONAL HISTORY OF OTHER DISEASES OF THE CIRCULATORY SYSTEM (4) Status post balloon dilatation of esophageal stricture Code(s): Z98.890 - OTHER SPECIFIED POSTPROCEDURAL STATES (5) Weakness Code(s): R53.1 - WEAKNESS (6) Anemia Code(s): D64.9 - ANEMIA, UNSPECIFIED Qualifiers: Anemia type: iron deficiency (7) Aspiration into respiratory tract Code(s): T17.908A - UNSP FB IN RESP TRACT, PART UNSP CAUSING OTH INJURY, INIT Qualifiers: Encounter type: initial encounter Qualified Code(s): T17.908A - Unspecified foreign body in respiratory tract, part unspecified causing other injury, initial encounter (8) B-cell lymphoma Code(s): C85.10 - UNSPECIFIED B-CELL LYMPHOMA, UNSPECIFIED SITE Qualifiers: B-cell lymphoma type: unspecified B-cell (9) GI bleed Code(s): K92.2 - GASTROINTESTINAL HEMORRHAGE, UNSPECIFIED Qualifiers: GI bleed type/associated pathology: diverticulosis Qualified Code(s): K57.91 - Diverticulosis of intestine, part unspecified, without perforation or abscess with bleeding (10) Pulmonary HTN Code(s): I27.20 - PULMONARY HYPERTENSION, UNSPECIFIED (11) Systolic and diastolic CHF, acute on chronic Code(s): I50.43 - ACUTE ON CHRONIC COMBINED SYSTOLIC AND DIASTOLIC HRT FAIL (12) Atrial fibrillation Code(s): I48.91 - UNSPECIFIED ATRIAL FIBRILLATION Qualifiers: Atrial fibrillation type: persistent Qualified Code(s): I48.1 - Persistent atrial fibrillation (13) CAD (coronary artery disease) Code(s): I25.10 - ATHSCL HEART DISEASE OF [place] CORONARY ARTERY W/O ANG PCTRS Qualifiers: Coronary Disease-Associated Artery/Lesion type: [place] artery [place] vs. transplanted heart: [place] heart Associated angina: without angina Qualified Code(s): I25.10 - Atherosclerotic heart disease of [place] coronary artery without angina pectoris (14) Hypercholesterolemia Code(s): E78.0 - PURE HYPERCHOLESTEROLEMIA * DO NOT USE * (15) Hypertension Code(s): I10 - ESSENTIAL (PRIMARY) HYPERTENSION Qualifiers: Hypertension type: essential hypertension Qualified Code(s): I10 - Essential (primary) hypertension (16) Right bundle branch block Code(s): I45.10 - UNSPECIFIED RIGHT BUNDLE-BRANCH BLOCK Assessment/Plan 1. Atrial fibrillation with rapid ventricular response post Cryo-Maze and NATE ligation, [id number] score of 5, currently off of A/C due to h/o GI bleed 2. Acute on chronic diastolic failure 3. CAD single vessel obstructive disease, angina pectoris, stable 4. Achalasia previous EGD and balloon dilation 5. 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 HTN 7. Hypercholesterolemia 8. ASD post surgical repair 9. History of hypercapneic respiratory failure, underlying COPD 10. Pancytopenia, low grade Lymphoma 11. 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 Continue Lopressor 25 bid and Losartan 12.5 qd as tolerated 2. Diuresis with monitoring renal function and electrolytes 3. As outlined on prior notes recommend withholding A/C therapy indefinitely despite elevated stroke risk ([id number] score of 5) and considering his history of recurrent GI bleed, patient not a candidate for Watchman device insertion due to history of NATE ligation 4. Bronchodilator, O2 and GI and DVT prophylaxis 5. Modified barium esophagogram c/w achalasia with continued poor esophageal emptying, Await esophageal manometry and possible botox injections Further plans are to follow Emile Leong MD
[2017-06-25] MEDS: RANITIDINE HCL 150 MG TABLET (FP) PO SCH ×2 (12:41→17:09)
--- NOTE | 2017-06-25 14:26 | PN ---
Progress Note (short form) - Note Progress Note: continues to have sticking sensation when eating. no improvement with diet change. +hemoptysis. denies CP, SOB, fever, chills, N/V/C/D Current Medications Generic Name Dose Route Start Last Admin Trade Name Freq PRN Reason Stop Dose Admin Albuterol Sulfate 2 puff 06/18/17 11:09 06/23/17 11:49 Ventolin Hfa Inhaler - IH 2 puff Q4H PRN Administration SHORT OF BREATH/WHEEZING Artificial Tears 1 drop 06/19/17 12:45 06/25/17 12:42 Artificial Tears OU 1 drop Q4H [facility] Administration Bacitracin/Polymyxin B Sulfate 1 applic 06/18/17 22:00 06/25/17 09:33 Polysporin Ophthalmic Ointment - OD 1 applic BID [facility] Administration Botulinum Toxin Type A 100 units 06/27/17 09:00 Botox (Nf) - NR 06/27/17 09:01 ONCE ONE Docusate Sodium 100 mg 06/18/17 14:00 06/25/17 06:43 Colace - PO 100 mg TID [facility] Administration Enoxaparin Sodium 40 mg 06/19/17 10:00 06/25/17 09:32 Lovenox - SQ 40 mg DAILY [facility] Administration Furosemide 40 mg 06/22/17 14:45 06/24/17 16:26 Lasix - PO 40 mg Q48H [facility] Administration Piperacillin Sod/Tazobactam 50 mls @ 100 mls/hr 06/23/17 02:00 06/25/17 09:32 Sod 3.375 gm/ Dextrose IVPB 100 mls/hr Q8H-IV [facility] Administration Protocol Losartan Potassium 12.5 mg 06/24/17 10:00 06/25/17 09:32 Cozaar - PO 12.5 mg DAILY [facility] Administration Metoprolol Tartrate 25 mg 06/18/17 22:00 06/25/17 09:32 Lopressor - PO 25 mg BID [facility] Administration Pantoprazole Sodium 40 mg 06/18/17 22:00 06/25/17 09:32 Protonix - PO 40 mg BID [facility] Administration Polyethylene Glycol 17 gm 06/18/17 22:00 06/25/17 09:33 Miralax (For Daily Use) - PO Not Given BID [facility] Prednisone 20 mg 06/18/17 18:30 06/25/17 09:32 Deltasone - PO 20 mg DAILY [facility] Administration Ranitidine HCl 150 mg 06/23/17 17:00 06/25/17 12:41 Zantac - PO Not Given BID@1130,1700 [facility] Senna 2 tab 06/18/17 22:00 06/24/17 21:37 Senna - PO Not Given HS [facility] Last Vital Signs Temp Pulse Resp BP Pulse Ox 98.1 F 58 L 20 119/69 100 06/25/17 08:00 06/25/17 11:41 06/25/17 08:00 06/25/17 08:00 06/25/17 11:41 General NAD HEENT R side facial droop CV s1 s2 RRR Lungs decreased breath sounds B/L bases CBCD WBC 3.0 K/mm3 (4.0-10.0) L 06/25/17 05:05 RBC 3.45 M/mm3 (4.00-5.60) L 06/25/17 05:05 Hgb 10.3 GM/dL (11.7-16.9) L 06/25/17 05:05 Hct 31.9 % (35.4-49) L 06/25/17 05:05 MCV 92.6 fl (80-96) 06/25/17 05:05 MCHC 32.4 g/dl (32.0-35.9) 06/25/17 05:05 RDW 16.2 % (11.9-15.9) H 06/25/17 05:05 Plt Count 166 K/MM3 (134-434) 06/25/17 05:05 MPV 7.1 fl (7.5-11.1) L 06/25/17 05:05 CMP Sodium 140 mmol/L (136-145) 06/25/17 05:05 Potassium 4.6 mmol/L (3.5-5.1) D 06/25/17 05:05 Chloride 95 mmol/L (98-107) L 06/25/17 05:05 Carbon Dioxide 38 mmol/L (21-32) H 06/25/17 05:05 Anion Gap 7 (8-16) L 06/25/17 05:05 BUN 18 mg/dL (7-18) 06/25/17 05:05 Creatinine 1.1 mg/dL (0.7-1.3) 06/25/17 05:05 Creat Clearance w eGFR > 60 (>60) 06/19/17 06:20 Calcium 8.9 mg/dL (8.5-10.1) 06/25/17 05:05 Total Bilirubin 1.2 mg/dL (0.2-1.0) H 06/19/17 06:20 AST 8 U/L (15-37) L 06/19/17 06:20 ALT 11 U/L (12-78) L 06/19/17 06:20 Alkaline Phosphatase 69 U/L (45-117) D 06/19/17 06:20 Total Protein 6.8 g/dl (6.4-8.2) 06/19/17 06:20 Albumin 2.5 g/dl (3.4-5.0) L 06/19/17 06:20 ASSESSMENT AND PLAN: 87 yo M with PMHx of COPD on 2L home oxygen, Afib (not on anti-coagulation), prior GIB, low grade lymphoma with pancytopenia, CAD with 1 vessel disease, recent admission with Cardenas's palsy admitted with weakness, poor oral intake and constipation. 1. Generalized weakness - likely due to poor oral intake. now improved. agreeable to BENY. 2. Afib with RVR- likely due to medications being held. rate is now controlled. cont home medications. refused anticoagulation. cardio consulted. can d/c service observer chief 3. B/L PNA- improved. afebrile. on Zosyn day 4. ID on board. will discuss when to convert to po. sputum Cx 4. Hemoptysis- likely due to EGD. improving. Hgb stable. monitor 5. Dysphagia-s/p EGD 06/21. with balloon dilation at [facility]. downgraded to puree diet and tolerating well. plan is for botox injections on Wednesday 06/27. 6. HTN-improved. monitor 7. 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 maintain eye patch. on steroids. on pred 15mg 9. DVT ppx- lovenox 10. DNR/DNI. 11. BENY when medically optimized. can d/c cardiac monitoring Visit type - Emergency Visit Emergency Visit: Yes ED Registration Date: 06/20/17 Care time: The patient presented to the Emergency Department on the above date and was hospitalized for further evaluation of their emergent condition. - New Patient This patient is new to me today: No - Critical Care Critical Care patient: No - Discharge Referral Referred to [facility] No
[2017-06-25] MEDS: SENNOSIDES 8.6MG TABLET (FP) PO SCH (21:49)
[2017-06-25] MEDS ORDERED: ALBUTEROL SO4 18 GM HFA INHALER IH PRN (22:50)
[2017-06-26] MEDS ORDERED: PT OWN MED DRAWER 7, Y5N ONE ×3 (01:16→17:35)
[2017-06-26] MEDS: PIPERACILLIN/TAZOB 3.375 GM 3.375 GM in DEXTROSE 5%-WATER - 50 ML IVPB SCH ×3 (01:40→17:39)
[2017-06-26] MEDS: ARTIFICIAL TEARS (POLYVINYL ALCOHOL 1.4%) OPTH DROPS OU SCH ×5 (05:48→22:02)
[2017-06-26] MEDS: DOCUSATE SODIUM 100 MG CAPSULE (FP) PO SCH ×3 (05:48→22:01)
[2017-06-26] MEDS: METOPROLOL TARTRATE 25 MG TABLET (FP) PO SCH ×2 (10:40→22:01)
[2017-06-26] MEDS: LOSARTAN POTASSIUM 25 MG TABLET PO SCH (10:41)
[2017-06-26] MEDS: PANTOPRAZOLE 40 MG TABLET (FP) PO SCH ×2 (10:41→22:01)
[2017-06-26] MEDS: predniSONE 20 MG TABLET (UD) PO SCH (10:41)
[2017-06-26] MEDS: FUROSEMIDE 40 MG TABLET (FP) PO SCH (10:41)
[2017-06-26] MEDS: ENOXAPARIN NA (PORCINE) 40 MG/0.4 ML DISP.SYRIN SQ SCH (10:42)
[2017-06-26] MEDS: POLYETHYLENE GLYCOL 3350 119 GM BTL PO SCH ×2 (10:42→22:04)
[2017-06-26] MEDS: BACITRACIN/POLYMYXIN OPH OINT 3.5 GM TUBE OD SCH ×3 (10:43→22:02)
--- NOTE | 2017-06-26 11:36 | PN ---
Progress Note (short form) - Note Progress Note: PULMONARY AWAKE/ALERT/ BLOOD STREAKED SPUTUM CONTINUES VSS/AFEBRILE ANICTERIC/RIGHT FACIAL NERVE PALSY(WOOTEN'S) SCATTERED CRACKLES ON RIGHT S1S2 IRREGULAR(RATE CONTROLLED) BS+ SOFT NO EDEMA LABS/MEDS/IMAGES REVIEWED AF w rapid ventricular response post EGD resolved Pulmonary aspiration given radiograph findings hemoptysis continues but less COPD CAD Pulmonary HTN Atrial Fibrillation s/p cryomaze procedure/history of GI bleed precluding anticoagulation Lymphoma low grade ASD repair - rate control/BP monitoring/parameters for meds - ID/Cardio f/u - O2 to keep SpO2 >90% - inhaled bronchodilators - diet adjusted - needs short term rehab - EGD/botox lower esophagus tomorrow Felix ELIZABETH MD
--- NOTE | 2017-06-26 12:46 | PN ---
Progress Note (short form) - Note Progress Note: tolerating diet. no longer having sticking sensation. +hemoptysis, but not worse. denies CP, SOB, fever, chills, N/V/C/D Current Medications Generic Name Dose Route Start Last Admin Trade Name Freq PRN Reason Stop Dose Admin Albuterol Sulfate 2 puff 06/25/17 22:50 Ventolin Hfa Inhaler - IH Q4H PRN SHORT OF BREATH/WHEEZING Artificial Tears 1 drop 06/26/17 06:00 06/26/17 10:42 Artificial Tears OU 1 drop Q4HWA [facility] Administration Bacitracin/Polymyxin B Sulfate 1 applic 06/26/17 10:00 06/26/17 10:45 Polysporin Ophthalmic Ointment - OD 1 applic BID [facility] Administration Botulinum Toxin Type A 100 units 06/27/17 09:00 Botox (Nf) - NR 06/27/17 09:01 ONCE ONE Docusate Sodium 100 mg 06/26/17 06:00 06/26/17 05:48 Colace - PO 100 mg TID [facility] Administration Enoxaparin Sodium 40 mg 06/26/17 10:00 06/26/17 10:42 Lovenox - SQ 40 mg DAILY [facility] Administration Furosemide 40 mg 06/26/17 10:00 06/26/17 10:41 Lasix - PO 40 mg Q48H [facility] Administration Piperacillin Sod/Tazobactam 50 mls @ 100 mls/hr 06/26/17 02:00 06/26/17 11:51 Sod 3.375 gm/ Dextrose IVPB 100 mls/hr Q8H-IV [facility] Administration Protocol Losartan Potassium 12.5 mg 06/26/17 10:00 06/26/17 10:41 Cozaar - PO 12.5 mg DAILY [facility] Administration Metoprolol Tartrate 25 mg 06/26/17 10:00 06/26/17 10:40 Lopressor - PO 25 mg BID [facility] Administration Pantoprazole Sodium 40 mg 06/26/17 10:00 06/26/17 10:41 Protonix - PO 40 mg BID [facility] Administration Polyethylene Glycol 17 gm 06/26/17 10:00 06/26/17 10:42 Miralax (For Daily Use) - PO 17 gm BID [facility] Administration Prednisone 20 mg 06/26/17 10:00 06/26/17 10:41 Deltasone - PO 20 mg DAILY [facility] Administration Ranitidine HCl 150 mg 06/26/17 11:30 Zantac - PO BID@1130,1700 [facility] Senna 2 tab 06/26/17 22:00 Senna - PO HS [facility] Last Vital Signs Temp Pulse Resp BP Pulse Ox 97.3 F L 80 18 116/59 100 06/25/17 19:30 06/26/17 06:09 06/26/17 06:09 06/26/17 06:09 06/25/17 21:00 General NAD HEENT R side facial droop CV s1 s2 RRR Lungs CTA B/L no wheezing/rales/rhonchi ASSESSMENT AND PLAN: 87 yo M with PMHx of COPD on 2L home oxygen, Afib (not on anti-coagulation), prior GIB, low grade lymphoma with pancytopenia, CAD with 1 vessel disease, recent admission with Cardenas's palsy admitted with weakness, poor oral intake and constipation. 1. Generalized weakness - likely due to poor oral intake. now improved. agreeable to BENY. 2. Afib with RVR- likely due to medications being held. rate is now controlled. cont home medications. refused anticoagulation. cardio consulted. 3. B/L PNA- improved. afebrile. on Zosyn day 5. ID on board. sputum Cx negative 4. Hemoptysis- likely due to EGD. Hgb stable. low concern for PE, although does have risk factors as is sedentary. will hold off repeat imaging at this time 5. Dysphagia-s/p EGD 06/21. with balloon dilation at [facility]. downgraded to puree diet and tolerating well. plan is for botox injections on Wednesday 06/27. 6. HTN-improved. monitor 7. 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 maintain eye patch. on steroids. on pred 15mg 9. DVT ppx- lovenox 10. DNR/DNI. 11. BENY when medically optimized. Visit type - Emergency Visit Emergency Visit: Yes ED Registration Date: 06/20/17 Care time: The patient presented to the Emergency Department on the above date and was hospitalized for further evaluation of their emergent condition. - New Patient This patient is new to me today: No - Critical Care Critical Care patient: No - Discharge Referral Referred to [facility] No
[2017-06-26] MEDS: RANITIDINE HCL 150 MG TABLET (FP) PO SCH ×2 (16:28→17:39)
--- NOTE | 2017-06-26 21:22 | PN ---
Progress Note, Physician Chief Complaint: Not in distress History of Present Illness: Patient was seen and examined. Awake and alert. Chart was reviewed Denies chest pain, SOB or palpitations - Current Medication List Current Medications: Active Medications Albuterol Sulfate (Ventolin Hfa Inhaler -) 2 puff IH Q4H PRN PRN Reason: SHORT OF BREATH/WHEEZING Artificial Tears (Artificial Tears) 1 drop OU Q4HWA [facility] Last Admin: 06/26/17 17:39 Dose: 1 drop Bacitracin/Polymyxin B Sulfate (Polysporin Ophthalmic Ointment -) 1 applic OD BID [facility] Last Admin: 06/26/17 10:45 Dose: 1 applic Botulinum Toxin Type A (Botox (Nf) -) 100 units NR ONCE ONE Stop: 06/27/17 09:01 Docusate Sodium (Colace -) 100 mg PO TID [facility] Last Admin: 06/26/17 16:27 Dose: 100 mg Enoxaparin Sodium (Lovenox -) 40 mg SQ DAILY [facility] Last Admin: 06/26/17 10:42 Dose: 40 mg Furosemide (Lasix -) 40 mg PO Q48H [facility] Last Admin: 06/26/17 10:41 Dose: 40 mg Piperacillin Sod/Tazobactam (Sod 3.375 gm/ Dextrose) 50 mls @ 100 mls/hr IVPB Q8H-IV [facility] PRN Reason: Protocol Last Admin: 06/26/17 17:39 Dose: 100 mls/hr Losartan Potassium (Cozaar -) 12.5 mg PO DAILY [facility] Last Admin: 06/26/17 10:41 Dose: 12.5 mg Metoprolol Tartrate (Lopressor -) 25 mg PO BID [facility] Last Admin: 06/26/17 10:40 Dose: 25 mg Pantoprazole Sodium (Protonix -) 40 mg PO BID [facility] Last Admin: 06/26/17 10:41 Dose: 40 mg Polyethylene Glycol (Miralax (For Daily Use) -) 17 gm PO BID [facility] Last Admin: 06/26/17 10:42 Dose: 17 gm Prednisone (Deltasone -) 20 mg PO DAILY [facility] Last Admin: 06/26/17 10:41 Dose: 20 mg Ranitidine HCl (Zantac -) 150 mg PO BID@1130,1700 [facility] Last Admin: 06/26/17 17:39 Dose: 150 mg Senna (Senna -) 2 tab PO HS [facility] - Objective Vital Signs: Vital Signs Temperature 97.5 F L 06/26/17 16:15 Pulse Rate 74 06/26/17 16:15 Respiratory Rate 18 06/26/17 16:15 Blood Pressure 117/63 06/26/17 16:15 O2 Sat by Pulse Oximetry (%) 100 06/25/17 21:00 Eyes: Yes: PERRL HENT: Yes: Atraumatic Neck: Yes: Supple Cardiovascular: Yes: Pulse Irregular, S1, S2 Respiratory: Yes: Diminished Gastrointestinal: Yes: Normal Bowel Sounds, Soft. No: Tenderness Edema: No Labs: CBC, BMP 06/25/17 05:05 06/25/17 05:05 Problem List - Problems (1) Achalasia of esophagus Code(s): K22.0 - ACHALASIA OF CARDIA (2) Chronic respiratory failure with hypoxia and hypercapnia Code(s): J96.11 - CHRONIC RESPIRATORY FAILURE WITH HYPOXIA; J96.12 - CHRONIC RESPIRATORY FAILURE WITH HYPERCAPNIA (3) Status post Maze operation for atrial fibrillation Code(s): Z98.890 - OTHER SPECIFIED POSTPROCEDURAL STATES; Z86.79 - PERSONAL HISTORY OF OTHER DISEASES OF THE CIRCULATORY SYSTEM (4) Status post balloon dilatation of esophageal stricture Code(s): Z98.890 - OTHER SPECIFIED POSTPROCEDURAL STATES (5) Weakness Code(s): R53.1 - WEAKNESS (6) Abnormal liver function tests Code(s): R79.89 - OTHER SPECIFIED ABNORMAL FINDINGS OF BLOOD CHEMISTRY (7) B-cell lymphoma Code(s): C85.10 - UNSPECIFIED B-CELL LYMPHOMA, UNSPECIFIED SITE Qualifiers: B-cell lymphoma type: unspecified B-cell (8) COPD (chronic obstructive pulmonary disease) Code(s): J44.9 - CHRONIC OBSTRUCTIVE PULMONARY DISEASE, UNSPECIFIED Qualifiers: COPD type: unspecified COPD Qualified Code(s): J44.9 - Chronic obstructive pulmonary disease, unspecified (9) Facial droop Code(s): R29.810 - FACIAL WEAKNESS (10) GI bleed Code(s): K92.2 - GASTROINTESTINAL HEMORRHAGE, UNSPECIFIED Qualifiers: GI bleed type/associated pathology: diverticulosis Qualified Code(s): K57.91 - Diverticulosis of intestine, part unspecified, without perforation or abscess with bleeding (11) Pulmonary HTN Code(s): I27.20 - PULMONARY HYPERTENSION, UNSPECIFIED (12) Severe anemia Code(s): D64.9 - ANEMIA, UNSPECIFIED (13) Systolic and diastolic CHF, acute on chronic Code(s): I50.43 - ACUTE ON CHRONIC COMBINED SYSTOLIC AND DIASTOLIC HRT FAIL (14) Atrial fibrillation Code(s): I48.91 - UNSPECIFIED ATRIAL FIBRILLATION Qualifiers: Atrial fibrillation type: persistent Qualified Code(s): I48.1 - Persistent atrial fibrillation (15) CAD (coronary artery disease) Code(s): I25.10 - ATHSCL HEART DISEASE OF [place] CORONARY ARTERY W/O ANG PCTRS Qualifiers: Coronary Disease-Associated Artery/Lesion type: [place] artery [place] vs. transplanted heart: [place] heart Associated angina: without angina Qualified Code(s): I25.10 - Atherosclerotic heart disease of [place] coronary artery without angina pectoris (16) H/O atrial septal defect repair Code(s): Z98.89 - OTHER SPECIFIED POSTPROCEDURAL STATES * DO NOT USE *; Z87.74 - PERSONAL HISTORY OF CONGENITAL MALFORM OF HEART AND CIRC SYS (17) Hypercholesterolemia Code(s): E78.0 - PURE HYPERCHOLESTEROLEMIA * DO NOT USE * (18) Hypertension Code(s): I10 - ESSENTIAL (PRIMARY) HYPERTENSION Qualifiers: Hypertension type: essential hypertension Qualified Code(s): I10 - Essential (primary) hypertension (19) Right bundle branch block Code(s): I45.10 - UNSPECIFIED RIGHT BUNDLE-BRANCH BLOCK Assessment/Plan 1. Atrial fibrillation with rapid ventricular response post Cryo-Maze and NATE ligation, [id number] score of 5, currently off of A/C due to h/o GI bleed 2. Acute on chronic diastolic failure 3. CAD single vessel obstructive disease, angina pectoris, stable 4. Achalasia previous EGD and balloon dilation 5. 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 HTN 7. Hypercholesterolemia 8. ASD post surgical repair 9. History of hypercapneic respiratory failure, underlying COPD 10. Pancytopenia, low grade Lymphoma 11. 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 Continue Lopressor 25 bid and Losartan 12.5 qd as tolerated 2. Diuresis with monitoring renal function and electrolytes 3. As outlined on prior notes recommend withholding A/C therapy indefinitely despite elevated stroke risk ([id number] score of 5) and considering his history of recurrent GI bleed, patient not a candidate for Watchman device insertion due to history of NATE ligation 4. Bronchodilator, O2 and GI and DVT prophylaxis 5. Await esophageal manometry and possible botox injections Further plans are to follow Emile Leong MD
[2017-06-26] MEDS: SENNOSIDES 8.6MG TABLET (FP) PO SCH (22:01)
[2017-06-27] MEDS: PIPERACILLIN/TAZOB 3.375 GM 3.375 GM in DEXTROSE 5%-WATER - 50 ML IVPB SCH ×3 (01:32→18:01)
[2017-06-27] MEDS: DOCUSATE SODIUM 100 MG CAPSULE (FP) PO SCH ×3 (05:51→22:52)
[2017-06-27] MEDS: ARTIFICIAL TEARS (POLYVINYL ALCOHOL 1.4%) OPTH DROPS OU SCH ×5 (05:51→22:53)
[2017-06-27] MEDS ORDERED: BOTULINUM TOXIN A 100 UNITS VIAL NR ONE ×2 (08:30→09:00)
--- NOTE | 2017-06-27 09:16 | PROC ---
Endoscopy Procedure Endoscopy procedure completed. Please see scanned procedure report. s/p EGD with botox injection. No immediate complications
[2017-06-27] MEDS ORDERED: ONABOTULINUMTOXINA 200 UNIT/VIAL VIAL IM ONE (09:27)
--- NOTE | 2017-06-27 09:59 | PN ---
Progress Note, Physician History of Present Illness: Afib rate-controlled, dyspnea at baseline, scant hemoptysis, still with dysphagia despite esophageal balloon dilatation, underwent Botox injection lower esophageal sphincter. - Current Medication List Current Medications: Active Medications Albuterol Sulfate (Ventolin Hfa Inhaler -) 2 puff IH Q4H PRN PRN Reason: SHORT OF BREATH/WHEEZING Artificial Tears (Artificial Tears) 1 drop OU Q4HWA [facility] Last Admin: 06/27/17 05:51 Dose: 1 drop Bacitracin/Polymyxin B Sulfate (Polysporin Ophthalmic Ointment -) 1 applic OD BID [facility] Last Admin: 06/26/17 22:02 Dose: 1 applic Docusate Sodium (Colace -) 100 mg PO TID [facility] Last Admin: 06/27/17 05:51 Dose: Not Given Enoxaparin Sodium (Lovenox -) 40 mg SQ DAILY [facility] Last Admin: 06/26/17 10:42 Dose: 40 mg Furosemide (Lasix -) 40 mg PO Q48H [facility] Last Admin: 06/26/17 10:41 Dose: 40 mg Piperacillin Sod/Tazobactam (Sod 3.375 gm/ Dextrose) 50 mls @ 100 mls/hr IVPB Q8H-IV [facility] PRN Reason: Protocol Last Admin: 06/27/17 01:32 Dose: 100 mls/hr Losartan Potassium (Cozaar -) 12.5 mg PO DAILY [facility] Last Admin: 06/26/17 10:41 Dose: 12.5 mg Metoprolol Tartrate (Lopressor -) 25 mg PO BID [facility] Last Admin: 06/26/17 22:01 Dose: 25 mg Pantoprazole Sodium (Protonix -) 40 mg PO BID [facility] Last Admin: 06/26/17 22:01 Dose: 40 mg Polyethylene Glycol (Miralax (For Daily Use) -) 17 gm PO BID [facility] Last Admin: 06/26/17 22:04 Dose: Not Given Prednisone (Deltasone -) 20 mg PO DAILY [facility] Last Admin: 06/26/17 10:41 Dose: 20 mg Ranitidine HCl (Zantac -) 150 mg PO BID@1130,1700 [facility] Last Admin: 06/26/17 17:39 Dose: 150 mg Senna (Senna -) 2 tab PO HS [facility] Last Admin: 06/26/17 22:01 Dose: 2 tab - Objective Vital Signs: Vital Signs Temperature 97.7 F 06/27/17 09:10 Pulse Rate 79 06/27/17 09:43 Respiratory Rate 20 06/27/17 09:43 Blood Pressure 113/67 06/27/17 09:43 O2 Sat by Pulse Oximetry (%) 99 06/27/17 09:43 Constitutional: Yes: No Distress, Calm Neck: Yes: Supple Cardiovascular: Yes: Pulse Irregular Respiratory: Yes: Regular, Diminished, On Nasal O2 Gastrointestinal: Yes: Soft, Hypoactive Bowel Sounds Edema: No Labs: CBC, BMP 06/25/17 05:05 06/25/17 05:05 INR, PTT INR 1.17 (0.82-1.09) H 06/18/17 03:35 Problem List - Problems (1) Status post balloon dilatation of esophageal stricture Code(s): Z98.890 - OTHER SPECIFIED POSTPROCEDURAL STATES (2) B-cell lymphoma Code(s): C85.10 - UNSPECIFIED B-CELL LYMPHOMA, UNSPECIFIED SITE Qualifiers: B-cell lymphoma type: unspecified B-cell (3) COPD (chronic obstructive pulmonary disease) Code(s): J44.9 - CHRONIC OBSTRUCTIVE PULMONARY DISEASE, UNSPECIFIED Qualifiers: COPD type: unspecified COPD Qualified Code(s): J44.9 - Chronic obstructive pulmonary disease, unspecified (4) Pulmonary HTN Code(s): I27.20 - PULMONARY HYPERTENSION, UNSPECIFIED (5) Systolic and diastolic CHF, acute on chronic Code(s): I50.43 - ACUTE ON CHRONIC COMBINED SYSTOLIC AND DIASTOLIC HRT FAIL (6) Atrial fibrillation Code(s): I48.91 - UNSPECIFIED ATRIAL FIBRILLATION Qualifiers: Atrial fibrillation type: persistent Qualified Code(s): I48.1 - Persistent atrial fibrillation (7) CAD (coronary artery disease) Code(s): I25.10 - ATHSCL HEART DISEASE OF [place] CORONARY ARTERY W/O ANG PCTRS Qualifiers: Coronary Disease-Associated Artery/Lesion type: [place] artery [place] vs. transplanted heart: [place] heart Associated angina: without angina Qualified Code(s): I25.10 - Atherosclerotic heart disease of [place] coronary artery without angina pectoris (8) H/O atrial septal defect repair Code(s): Z98.89 - OTHER SPECIFIED POSTPROCEDURAL STATES * DO NOT USE *; Z87.74 - PERSONAL HISTORY OF CONGENITAL MALFORM OF HEART AND CIRC SYS (9) Hypercholesterolemia Code(s): E78.0 - PURE HYPERCHOLESTEROLEMIA * DO NOT USE * (10) Hypertension Code(s): I10 - ESSENTIAL (PRIMARY) HYPERTENSION Qualifiers: Hypertension type: essential hypertension Qualified Code(s): I10 - Essential (primary) hypertension (11) Right bundle branch block Code(s): I45.10 - UNSPECIFIED RIGHT BUNDLE-BRANCH BLOCK (12) Status post Maze operation for atrial fibrillation Code(s): Z98.890 - OTHER SPECIFIED POSTPROCEDURAL STATES; Z86.79 - PERSONAL HISTORY OF OTHER DISEASES OF THE CIRCULATORY SYSTEM (13) Achalasia of esophagus Code(s): K22.0 - ACHALASIA OF CARDIA Assessment/Plan 1. Atrial fibrillation with rapid ventricular response post Cryo-Maze and NATE ligation, [id number] score of 5, currently off of A/C due to h/o GI bleed 2. Acute on chronic diastolic failure 3. CAD single vessel obstructive disease, angina pectoris, stable 4. Achalasia previous EGD and balloon dilation now post Botox injection 5. 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 HTN 7. Hypercholesterolemia 8. ASD post surgical repair 9. History of hypercapneic respiratory failure, underlying COPD 10. Pancytopenia, low grade Lymphoma 11. 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 Continue Lopressor 25 bid, Lasix 40 qod and Losartan 12.5 qd as tolerated 2. Diuresis with monitoring renal function and electrolytes 3. As outlined on prior notes recommend withholding A/C therapy indefinitely despite elevated stroke risk ([id number] score of 5) and considering his history of recurrent GI bleed, patient not a candidate for Watchman device insertion due to history of NATE ligation 4. Bronchodilator, O2 and oral steroids with GI and DVT prophylaxis 5. D/c planning
--- NOTE | 2017-06-27 10:54 | PN ---
Progress Note (short form) - Note Progress Note: OOB to chair. Reports feeling overall better. S/P EGD with botox injections this AM. No CP or SOB. Minimal blood tinged sputum, reports progressive improvement. Intake & Output 06/24/17 06/25/17 06/26/17 06/27/17 23:59 23:59 23:59 23:59 Intake Total 60 200 980 600 Output Total 1000 1050 900 400 Balance -940 -850 80 200 Weight 168 lb 166 lb 6.4 oz 159 lb 9 oz 162 lb Last Vital Signs Temp Pulse Resp BP Pulse Ox 97.7 F 89 20 113/67 98 06/27/17 09:55 06/27/17 09:55 06/27/17 09:55 06/27/17 09:55 06/27/17 09:55 Active Medications Albuterol Sulfate (Ventolin Hfa Inhaler -) 2 puff IH Q4H PRN PRN Reason: SHORT OF BREATH/WHEEZING Artificial Tears (Artificial Tears) 1 drop OU Q4HWA [facility] Last Admin: 06/27/17 05:51 Dose: 1 drop Bacitracin/Polymyxin B Sulfate (Polysporin Ophthalmic Ointment -) 1 applic OD BID [facility] Last Admin: 06/26/17 22:02 Dose: 1 applic Docusate Sodium (Colace -) 100 mg PO TID [facility] Last Admin: 06/27/17 05:51 Dose: Not Given Enoxaparin Sodium (Lovenox -) 40 mg SQ DAILY [facility] Last Admin: 06/26/17 10:42 Dose: 40 mg Furosemide (Lasix -) 40 mg PO Q48H [facility] Last Admin: 06/26/17 10:41 Dose: 40 mg Piperacillin Sod/Tazobactam (Sod 3.375 gm/ Dextrose) 50 mls @ 100 mls/hr IVPB Q8H-IV [facility] PRN Reason: Protocol Last Admin: 06/27/17 01:32 Dose: 100 mls/hr Losartan Potassium (Cozaar -) 12.5 mg PO DAILY [facility] Last Admin: 06/26/17 10:41 Dose: 12.5 mg Metoprolol Tartrate (Lopressor -) 25 mg PO BID [facility] Last Admin: 06/26/17 22:01 Dose: 25 mg Pantoprazole Sodium (Protonix -) 40 mg PO BID [facility] Last Admin: 06/26/17 22:01 Dose: 40 mg Polyethylene Glycol (Miralax (For Daily Use) -) 17 gm PO BID [facility] Last Admin: 06/26/17 22:04 Dose: Not Given Prednisone (Deltasone -) 20 mg PO DAILY [facility] Last Admin: 06/26/17 10:41 Dose: 20 mg Ranitidine HCl (Zantac -) 150 mg PO BID@1130,1700 [facility] Last Admin: 06/26/17 17:39 Dose: 150 mg Senna (Senna -) 2 tab PO HS [facility] Last Admin: 06/26/17 22:01 Dose: 2 tab Constitutional: Yes: No Distress Neck: Yes: Supple Cardiovascular: Yes: Pulse Irregular Respiratory: Yes: Diminished at the bases, no wheeze, few scattered rhonchi Gastrointestinal: Yes: Soft, Hypoactive Bowel Sounds Edema: No Labs: Problem List - Problems (1) Status post balloon dilatation of esophageal stricture Code(s): Z98.890 - OTHER SPECIFIED POSTPROCEDURAL STATES (2) B-cell lymphoma Code(s): C85.10 - UNSPECIFIED B-CELL LYMPHOMA, UNSPECIFIED SITE Qualifiers: B-cell lymphoma type: unspecified B-cell (3) COPD (chronic obstructive pulmonary disease) Code(s): J44.9 - CHRONIC OBSTRUCTIVE PULMONARY DISEASE, UNSPECIFIED Qualifiers: COPD type: unspecified COPD Qualified Code(s): J44.9 - Chronic obstructive pulmonary disease, unspecified (4) Pulmonary HTN Code(s): I27.20 - PULMONARY HYPERTENSION, UNSPECIFIED (5) Systolic and diastolic CHF, acute on chronic Code(s): I50.43 - ACUTE ON CHRONIC COMBINED SYSTOLIC AND DIASTOLIC HRT FAIL (6) Atrial fibrillation Code(s): I48.91 - UNSPECIFIED ATRIAL FIBRILLATION Qualifiers: Atrial fibrillation type: persistent Qualified Code(s): I48.1 - Persistent atrial fibrillation (7) CAD (coronary artery disease) Code(s): I25.10 - ATHSCL HEART DISEASE OF [place] CORONARY ARTERY W/O ANG PCTRS Qualifiers: Coronary Disease-Associated Artery/Lesion type: [place] artery [place] vs. transplanted heart: [place] heart Associated angina: without angina Qualified Code(s): I25.10 - Atherosclerotic heart disease of [place] coronary artery without angina pectoris (8) H/O atrial septal defect repair Code(s): Z98.89 - OTHER SPECIFIED POSTPROCEDURAL STATES * DO NOT USE *; Z87.74 - PERSONAL HISTORY OF CONGENITAL MALFORM OF HEART AND CIRC SYS (9) Hypercholesterolemia Code(s): E78.0 - PURE HYPERCHOLESTEROLEMIA * DO NOT USE * (10) Hypertension Code(s): I10 - ESSENTIAL (PRIMARY) HYPERTENSION Qualifiers: Hypertension type: essential hypertension Qualified Code(s): I10 - Essential (primary) hypertension (11) Right bundle branch block Code(s): I45.10 - UNSPECIFIED RIGHT BUNDLE-BRANCH BLOCK (12) Status post Maze operation for atrial fibrillation Code(s): Z98.890 - OTHER SPECIFIED POSTPROCEDURAL STATES; Z86.79 - PERSONAL HISTORY OF OTHER DISEASES OF THE CIRCULATORY SYSTEM (13) Achalasia of esophagus Code(s): K22.0 - ACHALASIA OF CARDIA Assessment/Plan Achalasia previous EGD and balloon dilation now post Botox injection Moderate to severe Pulmonary HTN History of hypercapneic respiratory failure, underlying COPD Monitoring off AC due to recurrent GI bleed Lasix O2 as needed Bronchodilator treatments Prednisone PO as tolerated No Pulmonary contraindication for D/C planning Dr Hernandez
[2017-06-27] MEDS: METOPROLOL TARTRATE 25 MG TABLET (FP) PO SCH ×2 (11:29→22:55)
[2017-06-27] MEDS: PANTOPRAZOLE 40 MG TABLET (FP) PO SCH ×2 (11:29→22:53)
[2017-06-27] MEDS: ENOXAPARIN NA (PORCINE) 40 MG/0.4 ML DISP.SYRIN SQ SCH (11:29)
[2017-06-27] MEDS: LOSARTAN POTASSIUM 25 MG TABLET PO SCH (11:29)
[2017-06-27] MEDS: predniSONE 20 MG TABLET (UD) PO SCH (11:29)
[2017-06-27] MEDS: POLYETHYLENE GLYCOL 3350 119 GM BTL PO SCH ×2 (11:32→22:52)
[2017-06-27] MEDS: BACITRACIN/POLYMYXIN OPH OINT 3.5 GM TUBE OD SCH ×2 (11:33→22:52)
--- NOTE | 2017-06-27 12:43 | PN ---
Progress Note, BANKING OFFICER - Note Progress Note: Selected Entries 06/21/17 06/21/17 06/21/17 10:00 14:32 15:59 Breakfast Lunch Supper Temperature 98.2 F 97.7 F 98.0 F 06/21/17 06/21/17 06/22/17 17:00 22:00 05:56 Breakfast Lunch Supper 75% Temperature 100.6 F H 98.9 F 97.2 F L 06/22/17 06/22/17 06/22/17 06:00 10:00 10:45 Breakfast 50% Lunch Supper Temperature 98.3 F 98.6 F 06/22/17 06/22/17 06/22/17 15:43 17:00 19:07 Breakfast Lunch Supper 50% Temperature 98.2 F 98.0 F 06/22/17 06/23/17 06/23/17 22:00 02:36 06:00 Breakfast Lunch Supper Temperature 98.9 F 98.1 F 98.6 F 06/23/17 06/23/17 06/23/17 08:00 11:10 15:00 Breakfast 75% Lunch Supper Temperature 98.4 F 98.2 F 06/25/17 06/25/17 06/25/17 02:00 06:00 08:00 Breakfast Lunch Supper Temperature 97.6 F 97.5 F L 98.1 F 06/25/17 06/25/17 06/25/17 14:00 18:00 19:30 Breakfast 75% Lunch 75% Supper 75% Temperature 98.5 F 98.6 F 97.3 F L 06/26/17 06/26/17 06/26/17 09:00 11:18 15:51 Breakfast 75% Lunch Supper Temperature 97.4 F L 97.8 F 06/26/17 06/26/17 06/26/17 16:15 18:30 22:00 Breakfast Lunch Supper 75% Temperature 97.5 F L 97.9 F 06/27/17 06/27/17 06/27/17 06:00 09:10 09:55 Breakfast Lunch Supper Temperature 98.0 F 97.7 F 97.7 F 06/27/17 10:26 Breakfast NPO Lunch Supper Temperature Laboratory Tests 06/21/17 06/22/17 06/25/17 09:00 05:45 05:05 WBC 2.3 L 3.8 L D 3.0 L Pt has been on puree and thin liquid. Botox to LES this am to reduce LES pressure for suspected Achalasia. Sticking sensation reported likely sec deferred symptoms from impaired esoph emptying. Hopefully will experience imjproved PO tolerance s/o botox mgmt. Although on puree and thin liquids, pt is eating pastries at bedside, stating that they stick a little.
[2017-06-27] MEDS: RANITIDINE HCL 150 MG TABLET (FP) PO SCH ×2 (13:48→18:00)
--- NOTE | 2017-06-27 15:34 | PN ---
Progress Note (short form) - Note Progress Note: has not eaten much since botox injections. denies CP, SOB, fever, chills, N/V/C/ D Current Medications Generic Name Dose Route Start Last Admin Trade Name Freq PRN Reason Stop Dose Admin Albuterol Sulfate 2 puff 06/25/17 22:50 Ventolin Hfa Inhaler - IH Q4H PRN SHORT OF BREATH/WHEEZING Artificial Tears 1 drop 06/26/17 06:00 06/27/17 13:49 Artificial Tears OU 1 drop Q4HWA [facility] Administration Bacitracin/Polymyxin B Sulfate 1 applic 06/26/17 10:00 06/27/17 11:33 Polysporin Ophthalmic Ointment - OD 1 applic BID [facility] Administration Docusate Sodium 100 mg 06/26/17 06:00 06/27/17 13:49 Colace - PO 100 mg TID [facility] Administration Enoxaparin Sodium 40 mg 06/26/17 10:00 06/27/17 11:29 Lovenox - SQ 40 mg DAILY [facility] Administration Furosemide 40 mg 06/26/17 10:00 06/26/17 10:41 Lasix - PO 40 mg Q48H [facility] Administration Piperacillin Sod/Tazobactam 50 mls @ 100 mls/hr 06/26/17 02:00 06/27/17 11:33 Sod 3.375 gm/ Dextrose IVPB 100 mls/hr Q8H-IV [facility] Administration Protocol Losartan Potassium 12.5 mg 06/26/17 10:00 06/27/17 11:29 Cozaar - PO 12.5 mg DAILY [facility] Administration Metoprolol Tartrate 25 mg 06/26/17 10:00 06/27/17 11:29 Lopressor - PO 25 mg BID [facility] Administration Pantoprazole Sodium 40 mg 06/26/17 10:00 06/27/17 11:29 Protonix - PO 40 mg BID [facility] Administration Polyethylene Glycol 17 gm 06/26/17 10:00 06/27/17 11:32 Miralax (For Daily Use) - PO 17 gm BID [facility] Administration Prednisone 20 mg 06/26/17 10:00 06/27/17 11:29 Deltasone - PO 20 mg DAILY [facility] Administration Ranitidine HCl 150 mg 06/26/17 11:30 06/27/17 13:48 Zantac - PO 150 mg BID@1130,1700 [facility] Administration Senna 2 tab 06/26/17 22:00 06/26/17 22:01 Senna - PO 2 tab HS [facility] Administration Last Vital Signs Temp Pulse Resp BP Pulse Ox 97.9 F 79 20 113/67 98 06/27/17 14:38 06/27/17 14:38 06/27/17 14:38 06/27/17 09:55 06/27/17 09:55 General NAD HEENT R side facial droop CV s1 s2 RRR Lungs CTA B/L no wheezing/rales/rhonchi ASSESSMENT AND PLAN: 87 yo M with PMHx of COPD on 2L home oxygen, Afib (not on anti-coagulation), prior GIB, low grade lymphoma with pancytopenia, CAD with 1 vessel disease, recent admission with Cardenas's palsy admitted with weakness, poor oral intake and constipation. 1. Generalized weakness - likely due to poor oral intake. now improved. agreeable to [facility]. 2. Afib with RVR- likely due to medications being held. rate is now controlled. cont home medications. refused anticoagulation. cardio consulted. 3. B/L PNA- improved. afebrile. on Zosyn day 6. speak with ID about abx duration. can likely transition to po tomorrow vs complete course. ID on board. sputum Cx negative 4. Hemoptysis- likely due to EGD. Hgb stable. low concern for PE, although does have risk factors as is sedentary. will hold off repeat imaging at this time 5. Dysphagia-s/p EGD 06/21. with balloon [place] [facility] [place] went for Botox injections today. slowly advance diet as tolerated. 6. HTN-improved. monitor 7. 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 maintain eye patch. on steroids. on pred 15mg 9. DVT ppx- lovenox 10. DNR/DNI. 11. Can likely d/c to [facility] tomorrow. CM aware Visit type - Emergency Visit Emergency Visit: Yes ED Registration Date: 06/20/17 Care time: The patient presented to the Emergency Department on the above date and was hospitalized for further evaluation of their emergent condition. - New Patient This patient is new to me today: No - Critical Care Critical Care patient: No - Discharge Referral Referred to [facility] Med P.C.: No
[2017-06-27] MEDS ORDERED: PT OWN MED DRAWER 7, Y5N ONE (17:22)
[2017-06-27] MEDS: SENNOSIDES 8.6MG TABLET (FP) PO SCH (22:52)
[2017-06-28] MEDS: PIPERACILLIN/TAZOB 3.375 GM 3.375 GM in DEXTROSE 5%-WATER - 50 ML IVPB SCH ×2 (03:17→09:43)
[2017-06-28] MEDS: DOCUSATE SODIUM 100 MG CAPSULE (FP) PO SCH ×2 (06:38→13:43)
[2017-06-28] MEDS: ARTIFICIAL TEARS (POLYVINYL ALCOHOL 1.4%) OPTH DROPS OU SCH ×4 (06:38→17:08)
[2017-06-28 07:50] VITALS: TEMP 97.9
--- NOTE | 2017-06-28 09:05 | PN ---
Progress Note, Physician History of Present Illness: No events. Wants to eat regular food - Current Medication List Current Medications: Active Medications Albuterol Sulfate (Ventolin Hfa Inhaler -) 2 puff IH Q4H PRN PRN Reason: SHORT OF BREATH/WHEEZING Artificial Tears (Artificial Tears) 1 drop OU Q4HWA [facility] Last Admin: 06/28/17 06:38 Dose: 1 drop Bacitracin/Polymyxin B Sulfate (Polysporin Ophthalmic Ointment -) 1 applic OD BID [facility] Last Admin: 06/27/17 22:52 Dose: 1 applic Docusate Sodium (Colace -) 100 mg PO TID [facility] Last Admin: 06/28/17 06:38 Dose: 100 mg Enoxaparin Sodium (Lovenox -) 40 mg SQ DAILY [facility] Last Admin: 06/27/17 11:29 Dose: 40 mg Furosemide (Lasix -) 40 mg PO Q48H [facility] Last Admin: 06/26/17 10:41 Dose: 40 mg Piperacillin Sod/Tazobactam (Sod 3.375 gm/ Dextrose) 50 mls @ 100 mls/hr IVPB Q8H-IV [facility] PRN Reason: Protocol Last Admin: 06/28/17 03:17 Dose: 100 mls/hr Losartan Potassium (Cozaar -) 12.5 mg PO DAILY [facility] Last Admin: 06/27/17 11:29 Dose: 12.5 mg Metoprolol Tartrate (Lopressor -) 25 mg PO BID [facility] Last Admin: 06/27/17 22:55 Dose: Not Given Pantoprazole Sodium (Protonix -) 40 mg PO BID [facility] Last Admin: 06/27/17 22:53 Dose: 40 mg Polyethylene Glycol (Miralax (For Daily Use) -) 17 gm PO BID [facility] Last Admin: 06/27/17 22:52 Dose: Not Given Prednisone (Deltasone -) 20 mg PO DAILY [facility] Last Admin: 06/27/17 11:29 Dose: 20 mg Ranitidine HCl (Zantac -) 150 mg PO BID@1130,1700 [facility] Last Admin: 06/27/17 18:00 Dose: 150 mg Senna (Senna -) 2 tab PO HS [facility] Last Admin: 06/27/17 22:52 Dose: 2 tab - Objective Vital Signs: Vital Signs Temperature 97.9 F 06/28/17 07:49 Pulse Rate 76 06/28/17 07:49 Respiratory Rate 20 06/28/17 07:49 Blood Pressure 117/48 06/28/17 07:49 O2 Sat by Pulse Oximetry (%) 98 06/27/17 21:00 Constitutional: Yes: No Distress, Calm Gastrointestinal: Yes: Soft Neurological: Yes: Alert, Oriented Labs: CBC, BMP 06/25/17 05:05 06/25/17 05:05 INR, PTT INR 1.17 (0.82-1.09) H 06/18/17 03:35 Problem List - Problems (1) Abnormal findings on radiological examination of gastrointestinal tract Code(s): R93.3 - ABNORMAL FINDINGS ON DX IMAGING OF PRT DIGESTIVE TRACT Assessment/Plan Presbyesophagus with esophageal dysmotility and a distal, smooth, muscular narrowing (? achalasia) of the esophagus. s/p botox injection. States swallowing "a little better". Wants to see regular menu. Advised to thoroughly chew food and observe
[2017-06-28] MEDS ORDERED: PT OWN MED DRAWER 7, Y5N ONE (09:35)
[2017-06-28] MEDS: LOSARTAN POTASSIUM 25 MG TABLET PO SCH (09:40)
[2017-06-28] MEDS: METOPROLOL TARTRATE 25 MG TABLET (FP) PO SCH (09:40)
[2017-06-28] MEDS: FUROSEMIDE 40 MG TABLET (FP) PO SCH (09:40)
[2017-06-28] MEDS: predniSONE 20 MG TABLET (UD) PO SCH (09:40)
[2017-06-28] MEDS: POLYETHYLENE GLYCOL 3350 119 GM BTL PO SCH (09:41)
[2017-06-28] MEDS: BACITRACIN/POLYMYXIN OPH OINT 3.5 GM TUBE OD SCH (09:41)
[2017-06-28] MEDS: PANTOPRAZOLE 40 MG TABLET (FP) PO SCH (09:41)
[2017-06-28] MEDS: ENOXAPARIN NA (PORCINE) 40 MG/0.4 ML DISP.SYRIN SQ SCH (09:50)
--- NOTE | 2017-06-28 11:09 | PN ---
Progress Note (short form) - Note Progress Note: OOB to chair. Continues to clinically improve. Minimal dark dried blood with sputum this AM. No CP or SOB. Intake & Output 06/25/17 06/26/17 06/27/17 06/28/17 23:59 23:59 23:59 23:59 Intake Total 628 865 9501 100 Output Total 0446 481 5058 250 Balance -850 80 770 -150 Weight 166 lb 6.4 oz 159 lb 9 oz 162 lb 161 lb 1.6 oz Last Vital Signs Temp Pulse Resp BP Pulse Ox 97.9 F 77 20 122/67 96 06/28/17 08:15 06/28/17 08:15 06/28/17 08:15 06/28/17 08:15 06/28/17 09:00 Active Medications Albuterol Sulfate (Ventolin Hfa Inhaler -) 2 puff IH Q4H PRN PRN Reason: SHORT OF BREATH/WHEEZING Artificial Tears (Artificial Tears) 1 drop OU Q4HWA [facility] Last Admin: 06/28/17 09:41 Dose: 1 drop Bacitracin/Polymyxin B Sulfate (Polysporin Ophthalmic Ointment -) 1 applic OD BID [facility] Last Admin: 06/28/17 09:41 Dose: 1 applic Docusate Sodium (Colace -) 100 mg PO TID [facility] Last Admin: 06/28/17 06:38 Dose: 100 mg Enoxaparin Sodium (Lovenox -) 40 mg SQ DAILY [facility] Last Admin: 06/28/17 09:50 Dose: 40 mg Furosemide (Lasix -) 40 mg PO Q48H [facility] Last Admin: 06/28/17 09:40 Dose: 40 mg Piperacillin Sod/Tazobactam (Sod 3.375 gm/ Dextrose) 50 mls @ 100 mls/hr IVPB Q8H-IV [facility] PRN Reason: Protocol Last Admin: 06/28/17 09:43 Dose: 100 mls/hr Losartan Potassium (Cozaar -) 12.5 mg PO DAILY [facility] Last Admin: 06/28/17 09:40 Dose: 12.5 mg Metoprolol Tartrate (Lopressor -) 25 mg PO BID [facility] Last Admin: 06/28/17 09:40 Dose: 25 mg Pantoprazole Sodium (Protonix -) 40 mg PO BID [facility] Last Admin: 12/19/17 09:41 Dose: 40 mg Polyethylene Glycol (Miralax (For Daily Use) -) 17 gm PO BID [facility] Last Admin: 06/28/17 09:41 Dose: Not Given Prednisone (Deltasone -) 20 mg PO DAILY [facility] Last Admin: 06/28/17 09:40 Dose: 20 mg Ranitidine HCl (Zantac -) 150 mg PO BID@1130,1700 [facility] Last Admin: 06/27/17 18:00 Dose: 150 mg Senna (Senna -) 2 tab PO HS [facility] Last Admin: 06/27/17 22:52 Dose: 2 tab Constitutional: Yes: No Distress Neck: Yes: Supple Cardiovascular: Yes: Pulse Irregular Respiratory: Yes: Diminished at the bases, no wheeze, few scattered rhonchi Gastrointestinal: Yes: Soft, Hypoactive Bowel Sounds Edema: No Labs: Laboratory Results - last 24 hr 06/18/17 06:00 Ur Leukocyte Esterase Negative Problem List - Problems (1) Status post balloon dilatation of esophageal stricture Code(s): Z98.890 - OTHER SPECIFIED POSTPROCEDURAL STATES (2) B-cell lymphoma Code(s): C85.10 - UNSPECIFIED B-CELL LYMPHOMA, UNSPECIFIED SITE Qualifiers: B-cell lymphoma type: unspecified B-cell (3) COPD (chronic obstructive pulmonary disease) Code(s): J44.9 - CHRONIC OBSTRUCTIVE PULMONARY DISEASE, UNSPECIFIED Qualifiers: COPD type: unspecified COPD Qualified Code(s): J44.9 - Chronic obstructive pulmonary disease, unspecified (4) Pulmonary HTN Code(s): I27.20 - PULMONARY HYPERTENSION, UNSPECIFIED (5) Systolic and diastolic CHF, acute on chronic Code(s): I50.43 - ACUTE ON CHRONIC COMBINED SYSTOLIC AND DIASTOLIC HRT FAIL (6) Atrial fibrillation Code(s): I48.91 - UNSPECIFIED ATRIAL FIBRILLATION Qualifiers: Atrial fibrillation type: persistent Qualified Code(s): I48.1 - Persistent atrial fibrillation (7) CAD (coronary artery disease) Code(s): I25.10 - ATHSCL HEART DISEASE OF [place] CORONARY ARTERY W/O ANG PCTRS Qualifiers: Coronary Disease-Associated Artery/Lesion type: [place] artery [place] vs. transplanted heart: [place] heart Associated angina: without angina Qualified Code(s): I25.10 - Atherosclerotic heart disease of [place] coronary artery without angina pectoris (8) H/O atrial septal defect repair Code(s): Z98.89 - OTHER SPECIFIED POSTPROCEDURAL STATES * DO NOT USE *; Z87.74 - PERSONAL HISTORY OF CONGENITAL MALFORM OF HEART AND CIRC SYS (9) Hypercholesterolemia Code(s): E78.0 - PURE HYPERCHOLESTEROLEMIA * DO NOT USE * (10) Hypertension Code(s): I10 - ESSENTIAL (PRIMARY) HYPERTENSION Qualifiers: Hypertension type: essential hypertension Qualified Code(s): I10 - Essential (primary) hypertension (11) Right bundle branch block Code(s): I45.10 - UNSPECIFIED RIGHT BUNDLE-BRANCH BLOCK (12) Status post Maze operation for atrial fibrillation Code(s): Z98.890 - OTHER SPECIFIED POSTPROCEDURAL STATES; Z86.79 - PERSONAL HISTORY OF OTHER DISEASES OF THE CIRCULATORY SYSTEM (13) Achalasia of esophagus Code(s): K22.0 - ACHALASIA OF CARDIA Assessment/Plan Achalasia previous EGD and balloon dilation now post Botox injection Moderate to severe Pulmonary HTN History of hypercapneic respiratory failure, underlying COPD Monitoring off AC due to recurrent GI bleed Lasix O2 as needed Bronchodilator treatments Prednisone PO as tolerated No Pulmonary contraindication for D/C planning Dr Hernandez
--- NOTE | 2017-06-28 11:37 | PN ---
Progress Note, Physician Chief Complaint: Not in distress History of Present Illness: Patient was seen and examined. Awake and alert. Chart was reviewed Denies chest pain, SOB or palpitations - Current Medication List Current Medications: Active Medications Albuterol Sulfate (Ventolin Hfa Inhaler -) 2 puff IH Q4H PRN PRN Reason: SHORT OF BREATH/WHEEZING Artificial Tears (Artificial Tears) 1 drop OU Q4HWA [facility] Last Admin: 06/28/17 09:41 Dose: 1 drop Bacitracin/Polymyxin B Sulfate (Polysporin Ophthalmic Ointment -) 1 applic OD BID [facility] Last Admin: 06/28/17 09:41 Dose: 1 applic Docusate Sodium (Colace -) 100 mg PO TID [facility] Last Admin: 06/28/17 06:38 Dose: 100 mg Enoxaparin Sodium (Lovenox -) 40 mg SQ DAILY [facility] Last Admin: 06/28/17 09:50 Dose: 40 mg Furosemide (Lasix -) 40 mg PO Q48H [facility] Last Admin: 06/28/17 09:40 Dose: 40 mg Piperacillin Sod/Tazobactam (Sod 3.375 gm/ Dextrose) 50 mls @ 100 mls/hr IVPB Q8H-IV [facility] PRN Reason: Protocol Last Admin: 06/28/17 09:43 Dose: 100 mls/hr Losartan Potassium (Cozaar -) 12.5 mg PO DAILY [facility] Last Admin: 06/28/17 09:40 Dose: 12.5 mg Metoprolol Tartrate (Lopressor -) 25 mg PO BID [facility] Last Admin: 06/28/17 09:40 Dose: 25 mg Pantoprazole Sodium (Protonix -) 40 mg PO BID [facility] Last Admin: 06/28/17 09:41 Dose: 40 mg Polyethylene Glycol (Miralax (For Daily Use) -) 17 gm PO BID [facility] Last Admin: 06/28/17 09:41 Dose: Not Given Prednisone (Deltasone -) 20 mg PO DAILY [facility] Last Admin: 06/28/17 09:40 Dose: 20 mg Ranitidine HCl (Zantac -) 150 mg PO BID@1130,1700 [facility] Last Admin: 06/27/17 18:00 Dose: 150 mg Senna (Senna -) 2 tab PO HS [facility] Last Admin: 06/27/17 22:52 Dose: 2 tab - Objective Vital Signs: Vital Signs Temperature 97.9 F 06/28/17 08:15 Pulse Rate 77 06/28/17 08:15 Respiratory Rate 20 06/28/17 08:15 Blood Pressure 122/67 06/28/17 08:15 O2 Sat by Pulse Oximetry (%) 96 06/28/17 09:00 Eyes: Yes: PERRL HENT: Yes: Atraumatic Neck: Yes: Supple Cardiovascular: Yes: Pulse Irregular, S1, S2 Respiratory: Yes: CTA Bilaterally Gastrointestinal: Yes: Normal Bowel Sounds, Soft. No: Tenderness Edema: No Labs: Problem List - Problems (1) Achalasia of esophagus Code(s): K22.0 - ACHALASIA OF CARDIA (2) Chronic respiratory failure with hypoxia and hypercapnia Code(s): J96.11 - CHRONIC RESPIRATORY FAILURE WITH HYPOXIA; J96.12 - CHRONIC RESPIRATORY FAILURE WITH HYPERCAPNIA (3) Status post Maze operation for atrial fibrillation Code(s): Z98.890 - OTHER SPECIFIED POSTPROCEDURAL STATES; Z86.79 - PERSONAL HISTORY OF OTHER DISEASES OF THE CIRCULATORY SYSTEM (4) Status post balloon dilatation of esophageal stricture Code(s): Z98.890 - OTHER SPECIFIED POSTPROCEDURAL STATES (5) Weakness Code(s): R53.1 - WEAKNESS (6) Abnormal liver function tests Code(s): R79.89 - OTHER SPECIFIED ABNORMAL FINDINGS OF BLOOD CHEMISTRY (7) B-cell lymphoma Code(s): C85.10 - UNSPECIFIED B-CELL LYMPHOMA, UNSPECIFIED SITE Qualifiers: B-cell lymphoma type: unspecified B-cell (8) COPD (chronic obstructive pulmonary disease) Code(s): J44.9 - CHRONIC OBSTRUCTIVE PULMONARY DISEASE, UNSPECIFIED Qualifiers: COPD type: unspecified COPD Qualified Code(s): J44.9 - Chronic obstructive pulmonary disease, unspecified (9) Facial droop Code(s): R29.810 - FACIAL WEAKNESS (10) GI bleed Code(s): K92.2 - GASTROINTESTINAL HEMORRHAGE, UNSPECIFIED Qualifiers: GI bleed type/associated pathology: diverticulosis Qualified Code(s): K57.91 - Diverticulosis of intestine, part unspecified, without perforation or abscess with bleeding (11) Pulmonary HTN Code(s): I27.20 - PULMONARY HYPERTENSION, UNSPECIFIED (12) Severe anemia Code(s): D64.9 - ANEMIA, UNSPECIFIED (13) Systolic and diastolic CHF, acute on chronic Code(s): I50.43 - ACUTE ON CHRONIC COMBINED SYSTOLIC AND DIASTOLIC HRT FAIL (14) Atrial fibrillation Code(s): I48.91 - UNSPECIFIED ATRIAL FIBRILLATION Qualifiers: Atrial fibrillation type: persistent Qualified Code(s): I48.1 - Persistent atrial fibrillation (15) CAD (coronary artery disease) Code(s): I25.10 - ATHSCL HEART DISEASE OF [place] CORONARY ARTERY W/O ANG PCTRS Qualifiers: Coronary Disease-Associated Artery/Lesion type: [place] artery [place] vs. transplanted heart: [place] heart Associated angina: without angina Qualified Code(s): I25.10 - Atherosclerotic heart disease of [place] coronary artery without angina pectoris (16) H/O atrial septal defect repair Code(s): Z98.89 - OTHER SPECIFIED POSTPROCEDURAL STATES * DO NOT USE *; Z87.74 - PERSONAL HISTORY OF CONGENITAL MALFORM OF HEART AND CIRC SYS (17) Hypercholesterolemia Code(s): E78.0 - PURE HYPERCHOLESTEROLEMIA * DO NOT USE * (18) Hypertension Code(s): I10 - ESSENTIAL (PRIMARY) HYPERTENSION Qualifiers: Hypertension type: essential hypertension Qualified Code(s): I10 - Essential (primary) hypertension (19) Right bundle branch block Code(s): I45.10 - UNSPECIFIED RIGHT BUNDLE-BRANCH BLOCK Assessment/Plan 1. Atrial fibrillation with rapid ventricular response post Cryo-Maze and NATE ligation, [id number] score of 5, currently off of A/C due to h/o GI bleed 2. Acute on chronic diastolic failure 3. CAD single vessel obstructive disease, angina pectoris, stable 4. Achalasia EGD and balloon dilation s/p botox injection 5. 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 HTN 7. Hypercholesterolemia 8. ASD post surgical repair 9. History of hypercapneic respiratory failure, underlying COPD 10. Pancytopenia, low grade Lymphoma 11. 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 Continue Lopressor 25 bid and Losartan 12.5 qd as tolerated 2. Diuresis with monitoring renal function and electrolytes 3. As outlined on prior notes recommend withholding A/C therapy indefinitely despite elevated stroke risk ([id number] score of 5) and considering his history of recurrent GI bleed, patient not a candidate for Watchman device insertion due to history of NATE ligation 4. Bronchodilator, O2 and GI and DVT prophylaxis Further plans are to follow Emile Leong MD
[2017-06-28] MEDS: RANITIDINE HCL 150 MG TABLET (FP) PO SCH ×2 (11:51→17:07)
--- NOTE | 2017-06-28 12:54 | PN ---
Progress Note, [employer] - Note Progress Note: Selected Entries 06/27/17 06/27/17 06/27/17 06:00 09:00 09:10 Breakfast Lunch Supper Temperature 98.0 F 98.2 F 97.7 F 06/27/17 06/27/17 06/27/17 09:55 10:26 14:38 Breakfast NPO Lunch 75% Supper Temperature 97.7 F 97.9 F 06/27/17 06/27/17 06/27/17 17:23 18:31 22:00 Breakfast Lunch Supper Temperature 98.0 F 98.4 F 97.8 F 06/27/17 06/28/17 06/28/17 23:23 07:49 08:15 Breakfast Lunch Supper 75% Temperature 97.9 F 97.9 F 06/28/17 10:57 Breakfast 100% Lunch Supper Temperature Laboratory Tests 06/25/17 05:05 WBC 3.0 L Pt feels that he is swallowing better with less build up. For transfer to [facility], for continued [facility], with possible diet upgrade.
--- NOTE | 2017-06-28 14:28 | PN ---
Teaching Attending Note Name of Resident: Claudia Egan ATTENDING PHYSICIAN STATEMENT Time of evaluation: 10:30 AM I saw and evaluated the patient. I reviewed the resident's note and discussed the case with the resident. I agree with the resident's findings and plan as documented. SUBJECTIVE: Patient seen and examined. breathing better, no new complaints, Eating better now. No chest pain, palpitations, dizziness or new complaints noted. OBJECTIVE: Vital Signs Period Temp Pulse Resp BP Sys/Brian Pulse Ox Last 24 Hr 97.8 F-98.4 F 65-81 18-20 102-122/45-67 96-98 Intake & Output 06/25/17 06/26/17 06/27/17 06/28/17 23:59 23:59 23:59 23:59 Intake Total 560 369 6706 100 Output Total 2982 617 3794 750 Balance -850 80 770 -650 Weight 166 lb 6.4 oz 159 lb 9 oz 162 lb 161 lb 1.6 oz General: sitting in chair in no acute distress, Right eye patch CVS;S1S2 irregular Chest: few basilar rales, no wheezing, good air entry bilaterally Abdomen: soft, NT, ND Extremities: no edema Home Medication List Medication Instructions Recorded Confirmed Type Losartan Potassium [Cozaar] 25 mg PO DAILY 10/18/16 06/18/17 History Furosemide [Lasix -] 40 mg PO Q48H 05/21/17 06/18/17 History Polyethylene Glycol 3350 [Miralax 17 gm PO DAILY PRN 06/18/17 06/18/17 History 119 gm Btl -] Prednisone [Deltasone -] 20 mg PO DAILY 06/18/17 06/18/17 History Active Medications Generic Name Dose Route Start Last Admin Trade Name Freq PRN Reason Stop Dose Admin Albuterol Sulfate 2 puff 06/25/17 22:50 Ventolin Hfa Inhaler - IH Q4H PRN SHORT OF BREATH/WHEEZING Artificial Tears 1 drop 06/26/17 06:00 06/28/17 13:43 Artificial Tears OU 1 drop Q4HWA [facility] Administration Bacitracin/Polymyxin B Sulfate 1 applic 06/26/17 10:00 06/28/17 09:41 Polysporin Ophthalmic Ointment - OD 1 applic BID [facility] Administration Docusate Sodium 100 mg 06/26/17 06:00 06/28/17 13:43 Colace - PO 100 mg TID [facility] Administration Enoxaparin Sodium 40 mg 06/26/17 10:00 06/28/17 09:50 Lovenox - SQ 40 mg DAILY [facility] Administration Furosemide 40 mg 06/26/17 10:00 06/28/17 09:40 Lasix - PO 40 mg Q48H [facility] Administration Piperacillin Sod/Tazobactam 50 mls @ 100 mls/hr 06/26/17 02:00 06/28/17 09:43 Sod 3.375 gm/ Dextrose IVPB 100 mls/hr Q8H-IV [facility] Administration Protocol Losartan Potassium 12.5 mg 06/26/17 10:00 06/28/17 09:40 Cozaar - PO 12.5 mg DAILY [facility] Administration Metoprolol Tartrate 25 mg 06/26/17 10:00 06/28/17 09:40 Lopressor - PO 25 mg BID [facility] Administration Pantoprazole Sodium 40 mg 06/26/17 10:00 06/28/17 09:41 Protonix - PO 40 mg BID [facility] Administration Polyethylene Glycol 17 gm 06/26/17 10:00 06/28/17 09:41 Miralax (For Daily Use) - PO Not Given BID [facility] Prednisone 20 mg 06/26/17 10:00 06/28/17 09:40 Deltasone - PO 20 mg DAILY [facility] Administration Ranitidine HCl 150 mg 06/26/17 11:30 06/28/17 11:51 Zantac - PO 150 mg BID@1130,1700 [facility] Administration Senna 2 tab 06/26/17 22:00 06/27/17 22:52 Senna - PO 2 tab HS [facility] Administration ASSESSMENT AND PLAN: 87 yo M with PMHx of COPD on 2L home oxygen, Afib (not on anti-coagulation), prior GIB, low grade lymphoma with pancytopenia, CAD with 1 vessel disease, recent admission with Cardenas's palsy admitted with weakness, poor oral intake and constipation, found with dysphagia/ later complicated by aspiration PNA/afib with RVR. -generalized weakness from poor oral intake with diuretics, improved now -Dysphagia -Esophageal dilataion with concern for achalasi s/p Ballow dilation later botox -Multifocal HCAP, suspect aspiration PNA from dysphagia, esophageal dilation with anesthesia -Afib with RVR, likly from infectious process -Hemoptysis, resolved -HTN -COPD on home oxygen -Cardenas's palsy Plan: Clinically improved. PO intake better, respiratory status improved Transition to augmentin for addition 3 days. AFib rate controlled. No candidate for anti-coagulation per cardiology Continue speech/swallow eval and treatment outpatient, dysphagia pureed diet with aspiration precautions for now. HOld spironolactone on d.c D/c to [facility] today, Code status: DNR/DNI. plan discussed with patient in detail, all questions answered.
--- NOTE | 2017-06-28 14:50 | PN ---
Progress Note, Physician History of Present Illness: OOB in chair Breathing non-labored Still with complaints of blood-streaked sputum dysphagia improved s/p botox injection Afebrile Cultures no growth - Current Medication List Current Medications: Active Medications Albuterol Sulfate (Ventolin Hfa Inhaler -) 2 puff IH Q4H PRN PRN Reason: SHORT OF BREATH/WHEEZING Amoxicillin/Clavulanate Potassium (Augmentin - 875mg Tablet) 1 tab PO BID@0800, 1730 [facility] Artificial Tears (Artificial Tears) 1 drop OU Q4HWA [facility] Last Admin: 06/28/17 13:43 Dose: 1 drop Bacitracin/Polymyxin B Sulfate (Polysporin Ophthalmic Ointment -) 1 applic OD BID [facility] Last Admin: 06/28/17 09:41 Dose: 1 applic Docusate Sodium (Colace -) 100 mg PO TID [facility] Last Admin: 06/28/17 13:43 Dose: 100 mg Enoxaparin Sodium (Lovenox -) 40 mg SQ DAILY [facility] Last Admin: 06/28/17 09:50 Dose: 40 mg Furosemide (Lasix -) 40 mg PO Q48H [facility] Last Admin: 06/28/17 09:40 Dose: 40 mg Losartan Potassium (Cozaar -) 12.5 mg PO DAILY [facility] Last Admin: 06/28/17 09:40 Dose: 12.5 mg Metoprolol Tartrate (Lopressor -) 25 mg PO BID [facility] Last Admin: 06/28/17 09:40 Dose: 25 mg Pantoprazole Sodium (Protonix -) 40 mg PO BID [facility] Last Admin: 06/28/17 09:41 Dose: 40 mg Polyethylene Glycol (Miralax (For Daily Use) -) 17 gm PO BID [facility] Last Admin: 06/28/17 09:41 Dose: Not Given Prednisone (Deltasone -) 20 mg PO DAILY [facility] Last Admin: 06/28/17 09:40 Dose: 20 mg Ranitidine HCl (Zantac -) 150 mg PO BID@1130,1700 [facility] Last Admin: 06/28/17 11:51 Dose: 150 mg Senna (Senna -) 2 tab PO HS [facility] Last Admin: 06/27/17 22:52 Dose: 2 tab - Objective Vital Signs: Vital Signs Temperature 97.9 F 06/28/17 08:15 Pulse Rate 77 06/28/17 08:15 Respiratory Rate 20 06/28/17 08:15 Blood Pressure 122/67 06/28/17 08:15 O2 Sat by Pulse Oximetry (%) 96 06/28/17 09:00 Constitutional: Yes: No Distress Eyes: Yes: Conjunctiva Clear Cardiovascular: Yes: Regular Rate and Rhythm, S1, S2 Respiratory: Yes: Other (+crepitations at bases) Gastrointestinal: Yes: Normal Bowel Sounds, Soft. No: Tenderness Labs: CBC, BMP 06/25/17 05:05 06/25/17 05:05 INR, PTT INR 1.17 (0.82-1.09) H 06/18/17 03:35 Assessment/Plan Probable aspiration L pneumonia S/P esophageal dilatation D/C zosyn Augmentin 875mg po bid x 3d
[2017-06-28 14:54] VITALS: BP 116/76; PULSE 82
--- NOTE | 2017-06-28 15:03 | DS ---
Physical Exam: SUBJECTIVE: Patient seen and examined. Pt denies chest pain, sob, abdominal pain, nausea, vomiting, headache. Pt reports breathing better today. Pt requests a diet upgrade. No events overnight. OBJECTIVE: Vital Signs Period Temp Pulse Resp BP Sys/Brian Pulse Ox Last 24 Hr 97.8 F-98.4 F 65-81 18-20 102-122/45-67 96-98 PHYSICAL EXAM GENERAL: The patient is awake, alert, and fully oriented, in no acute distress. Pt OOB, sitting in chair. HEAD: Normal with no signs of trauma. EYES: Right eye patch in place. LUNGS: Breath sounds equal, clear to auscultation bilaterally, no wheezes, no crackles, no accessory muscle use. HEART: irregularly irregular, +S1/S2. ABDOMEN: Soft, nontender, nondistended, normoactive bowel sounds. EXTREMITIES: Warm, well-perfused, no edema. LABS HOSPITAL COURSE: Date of Admission:06/20/17 Date of Discharge: 06/28/17 87yo M with PMH of COPD (on 2L oxygen at home), afib (not on AC), GIB, low grade lymphoma with pancytopenia, CAD with 1 vessel disease, admitted for weakness 2/2 Cardenas's palsy, found to have dysphagia which was later complicated by aspiration pna and afib with RVR. Pt received IV Zosyn for asp pna, and will be transitioned to Augmentin po x 3 days more. Pt received EGD for hemoptysis, resulting in balloon dilation at gastroesophageal junction and Botox injections. Diet now slowly be upgraded per Speech Therapy. Home med of Spironolactone held. Pt wished to remain DNR/DNI throughout this hospitalization. 06/18/17 urine culture (-) 06/18/17 Influenza A&B (-) 06/18/17 blood culture (-) x 5 days 06/21/17 blood culture (-) x 5 days 06/22/17 legionella and strep pneumoniae (-) 06/23/17 sputum culture (-) 06/18/17 CXR -> marked fullness in Right hilum 06/18/17 Ab Xray -> constipation 06/20/17 Modified Barium Swallow -> There is impaired emptying of the thoracic esophagus (probably esophageal dysmotility and increased lower esophageal sphincter tone). 06/21/17 CXR -> developing Left lung consolidation/congestion. 06/23/17 CXR -> resolving Left parahilar/central pulmonary congestion. Left retrocardiac opacity may represent combination of the Left pleural effusion, atelectasis, or pna. 06/23/[address] -> Multifocal pna with Left upper and Left lower lob predominance. Very small layering pleural effusions, slightly larger on Right. No evidence of interstitial edema. Cardiomegaly with calcification of the aortic valve and mitral valve annulus. Dilated main pulmonary artery measuring 35mm in diameter, unchanged and suggestive of pulmonary artery htn. 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 06/24/17 Modified Barium Swallow -> No evidence of stasis, penetration or aspiration with thin liquids. Delayed esophageal trasit with tertiary contractions and significant stasis of thin liquids into the upper thoracic esophagus. Pt walked 100 ft with PT. Pt is stable for discharge to [facility]. Minutes to complete discharge: 40 Discharge Summary Reason For Visit: WEAKNESS Current Active Problems Abnormal findings on radiological examination of gastrointestinal tract (Acute) Achalasia of esophagus (Acute) Chronic respiratory failure with hypoxia and hypercapnia (Acute) Failure to thrive in adult (Acute) Nausea & vomiting (Acute) Shortness of breath (Acute) Status post Maze operation for atrial fibrillation (Acute) Status post balloon dilatation of esophageal stricture (Acute) Weakness (Acute) Anemia (Chronic) Atrial fibrillation (Chronic) COPD (chronic obstructive pulmonary disease) (Chronic) Hypertension (Chronic) Condition: Improved - Instructions Diet, Activity, Other Instructions: You were treated for weakness likely related to Cardenas's palsy, and for pneumonia. You received IV antibiotics. Please continue your medications as prescribed. Please complete your course of antibiotics: including Augmentin twice a day for 3 more days. You have new anti-constipation medications including Colace three times a day and Senna at . Your spironolactone is being held on discharge which will need to be resumed based on kidney function, diet and your doctor's recommendations. Continue lasix, advise daily weights and to notify your doctor if weight gain > 3lbs in 2 days. You are currently on ranitidine (zantac) and protonix, take as directed for next 1 week and taper per your doctor or Dr. Renteria over next 1-2 weeks. You are currently on prednisone 20 mg daily from prior to admission which will need to be taper per your regular doctor, please discuss with your doctor within next 5-7 days. Also you received EGD with student accounts coordinator Dr. Renteria and are advised to continue ranitidine, protonix and follow up with Dr. Renteria in 1-2 weeks. Please continue a dysphagia puree diet with thin liquids, until you are approved for an upgraded diet consistency by Speech Pathology. Please increase physical activity as tolerated. Eye care with patch, tears as recommended. Home oxygen as prior. Please follow-up with your Primary Care Doctor (Dr. Pfeiffer) within 1 week. Please follow-up with your Poultry Cutter within 1 week. Please follow up with Dr. Renteria (student accounts coordinator) in 1 week. Speech pathology referral outpatient Please return to the hospital immediately if you experience persistent or increased weakness, difficulty swallowing, coughing up blood, difficulty breathing, chest pain, or for any medical emergency. Referrals: Ean Pfeiffer MD [Primary Care Provider] - 1 Week Disposition: CARE HOME FACILITY - Home Medications Comprehensive Discharge Medication List: Ambulatory Orders Losartan Potassium [Cozaar] 25 mg PO DAILY 10/18/16 Albuterol Sulfate Inhaler - [Ventolin HFA Inhaler -] 2 puff IH Q4H PRN #30 inhaler 11/05/16 Metoprolol Tartrate [Lopressor -] 25 mg PO BID #60 tablet 11/05/16 Pantoprazole Sodium [Protonix -] 40 mg PO BID #60 tab 11/05/16 Furosemide [Lasix -] 40 mg PO Q48H 05/21/17 Polyethylene Glycol 3350 [Miralax 119 gm Btl -] 17 gm PO DAILY PRN 06/18/17 Prednisone [Deltasone -] 20 mg PO DAILY 06/18/17 Amox-Tr/K Cl [Augmentin - 875Mg Tablet] 1 tab PO BID #6 tablet 06/28/17 Docusate Sodium [Colace -] 100 mg PO TID capsule 06/28/17 Polyvinyl Alcohol [Artificial Tears] 1 drop OU Q4HWA drops 06/28/17 Ranitidine [Zantac -] 150 mg PO BID@1130,1700 tablet 06/28/17 Sennosides [Senna -] 2 tab PO HS tablet 06/28/17 This patient is new to me today: Yes Date on this admission: 06/28/17 Emergency Visit: Yes ED Registration Date: 06/20/17 Care time: The patient presented to the Emergency Department on the above date and was hospitalized for further evaluation of their emergent condition. Critical Care patient: No - Discharge Referral Referred to [facility] No
[2017-06-28] MEDS ORDERED: AMOX TR/POT CLAV 875MG/125MG TABLETS (FP) PO SCH (17:30)
== END 2017-06-28 17:56 | DRG 391 ==
LOC: JER 02:26 → JERBED 09:35 → J8W 12:01 → OBSVTOIN 06-20 13:22 → J4W 06-21 18:42 → J8W 06-25 19:32
PROVIDERS: ADMIT Hospitalist; ATTEND Hospitalist
PROC: 0D758ZZ Dilation of Esophagus, Via Natural or Artificial Opening Endoscopic (ICD-10-PCS; principal; 2017-06-20)
PROC: 3E0G8GC Introduction of Other Therapeutic Substance into Upper GI, Via Natural or Artificial Opening Endoscopic (ICD-10-PCS; 2017-06-27)
DX: K22.8 Other specified diseases of esophagus (principal); J69.0 Pneumonitis due to inhalation of food and vomit; I50.33 Acute on chronic diastolic (congestive) heart failure; D61.818 Other pancytopenia; J96.12 Chronic respiratory failure with hypercapnia; J96.11 Chronic respiratory failure with hypoxia; C85.10 Unspecified B-cell lymphoma, unspecified site; I48.1 Persistent atrial fibrillation; I13.0 Hypertensive heart and chronic kidney disease with heart failure and stage 1 through stage 4 chronic kidney disease, or unspecified chronic kidney disease; I25.110 Atherosclerotic heart disease of native coronary artery with unstable angina pectoris; R04.2 Hemoptysis; E78.5 Hyperlipidemia, unspecified; J44.9 Chronic obstructive pulmonary disease, unspecified; I27.20 Pulmonary hypertension, unspecified; G51.0 Bell's palsy; D64.9 Anemia, unspecified; R13.19 Other dysphagia; K22.0 Achalasia of cardia; H10.89 Other conjunctivitis; K59.09 Other constipation; R62.7 Adult failure to thrive; K30 Functional dyspepsia; E80.6 Other disorders of bilirubin metabolism; E86.0 Dehydration; N18.9 Chronic kidney disease, unspecified; I45.19 Other right bundle-branch block; R50.9 Fever, unspecified; Z87.891 Personal history of nicotine dependence; Z99.81 Dependence on supplemental oxygen; Z66 Do not resuscitate
CPT/HCPCS: 36415; 71010-TC; 71250-TC; 74020-TC; 74230-TC; 80048; 80053; 80076; 81003; 82140; 82550; 82803; 83605; 83690; 83735; 83880; 84100; 84443; 84484; 85025; 85027; 85610; 85730; 87040; 87070; 87086; 87205; 87804; 87899; 92611-GN; 93005; 93010; 97116-GP; 97162-GP; 99285-25; G0378; J0585

== ENCOUNTER 2018-03-14 12:04 | Inpatient (IN) | payer OTHER, MEDICARE ==
--- NOTE | 2018-03-14 12:41 | PDOC ---
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 Pennington for right lower extremity redness, swelling x2 days associated with chills. Pt denies fever, nausea, vomiting, chest pain, shortness of breath, lightheadedness. Pt also complains of 20 pound weight loss. Past History - Past Medical History Allergies/Adverse Reactions: Allergies Allergy/AdvReac Type Severity Reaction Status Date / Time No Known Allergies Allergy Verified 03/14/18 12:32 Home Medications: Ambulatory Orders Losartan Potassium 50 mg PO DAILY 11/30/17 Metoprolol Tartrate 25 mg PO BID 11/30/17 Pantoprazole Sodium 40 mg PO DAILY 11/30/17 Furosemide [Lasix] 40 mg PO DAILY 03/14/18 Polyethylene Glycol [Polyox Wsr-301] 1 gm PO DAILY 03/14/18 Spironolactone 25 mg PO DAILY 03/14/18 Anemia: Yes Asthma: Yes Cardiac Disorders: Yes (A-FIB) CVA: Yes (cad, asd) COPD: Yes (& pulm htn) DVT: No GI Disorders: Yes (GI BLEED, WITH TRANSFUSION) HTN: Yes - Surgical History Cardiac Surgery: Yes (ASD) Orthopedic Surgery: Yes - Suicide/Smoking/Psychosocial Hx Smoking History: Never smoked Have you smoked in the past 12 months: No If you are a former smoker, when did you quit?: 1984 Information on smoking cessation initiated: No Hx Alcohol Use: No Drug/Substance Use Hx: No Substance Use Type: None Hx Substance Use Treatment: No Review of Systems - Review of Systems Able to Perform ROS?: Yes Comments:: 03/14/18 12:55 General: admits to chills. denies fever, night sweats, generalized weakness. HEENT: denies sore throat, rhinorrhea, ear pain. Heart: denies chest pain, palpitations, syncope, lower extremity swelling, diaphoresis. Respiratory: denies shortness of breath, cough, sputum production, hematemesis. Abdomen: denies abdominal pain, nausea, vomiting, diarrhea, constipation, blood in stool. : denies dysuria, increased urinary frequency, hematuria, urinary incontinence , flank pain. Back: denies back pain, flank pain. Neurological: denies headache, dizziness, numbness, tingling, weakness. Skin: admits to right lower extremity redness and swelling. *Physical Exam - Vital Signs Last Vital Signs Temp Pulse Resp BP Pulse Ox 98.2 F 63 16 108/52 100 03/14/18 12:30 03/14/18 12:30 03/14/18 12:30 03/14/18 12:30 03/14/18 12:30 - Physical Exam Comments: 03/14/18 12:56 Appearance: comfortable. HEENT: head is normocephalic, atraumatic. EOMI. PERRLA. Neck: supple. Full ROM. Heart: regular rhythm. no murmurs, rubs or gallops. No pericardial friction rub. Lungs: clear to auscultation bilaterally. no crackles, rhonchi or wheezing. no stridor. Abdomen: soft, nontender. normal bowel sounds. no rebound, guarding, masses. Extremities: right lower leg erythematous, non-pitting edema, warm. Peripheral pulses intact and equal. Neurological: Alert. Oriented x3. CN 2-12 grossly intact. Moves all four extremities. Heart Score/ECG Review - ECG Impressions Comment:: EKG performed at: 14:14 - Rate 51, irregularly irregular rhythm, right bundle branch block, normal axis, ST changes to 3, AVF, AVL. Similar ST changes as prior EKG on 08/16/17. Repeat EKG performed at: 15:10 - Rate 63, regular rhythm, right bundle branch block, normal axis, ST changes to 3, AVF, AVL. Similar ST changes as prior EKG on 02/21/18 and 08/16/17. ED Treatment Course - LABORATORY CBC & Chemistry Diagram: 03/14/18 16:15 03/14/18 14:30 Medical Decision Making - Medical Decision Making 03/14/18 12:54 88 year old male with PMH hypotension, COPD, atrial fibrillation sent to ED by Dr. Pennington for right lower extremity swelling and erythema. Initial Vital Signs Temp Pulse Resp BP Pulse Ox 98.2 F 63 16 108/52 100 03/14/18 12:30 03/14/18 12:30 03/14/18 12:30 03/14/18 12:30 03/14/18 12:30 Afebrile. No tachycardia. Mild hypotension. No hypoxia. Pending labs, EKG, CXR, XR, US doppler. Dr. Pennington paged for recs. 03/14/18 14:45 Dr. Pennington states he would like the patient admitted to [facility] with Dr. Justice THOMPSON consulted and himself Pulm consulted. Lab reports they do not have CBC. Will re-draw. I spoke with Dr. Morley, who will assume care of the patient. 03/14/18 15:38 RLE venous doppler US - no evidence of DVT. BUN 44 Cr 1.8 Normal saline fluids at 75 cc/hour ordered. 03/14/18 16:11 Dr. Rendon pageluna. *DC/Admit/Observation/Transfer Diagnosis at time of Disposition: Cellulitis - Discharge Dispostion Condition at time of disposition: Stable Decision to Admit order: Yes - Referrals - Patient Instructions - Post Discharge Activity
--- NOTE | 2018-03-14 12:46 | PDOC ---
Attending Attestation - Resident Resident Name: Mayuri Estrada - ED Attending Attestation I have performed the following: I have examined & evaluated the patient, The case was reviewed & discussed with the resident, I agree w/resident's findings & plan, Exceptions are as noted - HPI HPI: 03/14/18 14:00 Mr Pennington is an 88 year old male with PMH atrial fibrillation, hypotension, COPD, open heart surgery who presents to the ER with RLQ erythema No fever, chills no trauma No wounds with drainage - Physicial Exam PE: 03/14/18 14:03 Appearance: comfortable. HEENT: head is normocephalic, atraumatic. EOMI. PERRLA. Neck: supple. Full ROM. Heart: regular rhythm. no murmurs, rubs or gallops. Lungs: clear to auscultation bilaterally. no crackles, rhonchi or wheezing. no stridor. Abdomen: soft, nontender. normal bowel sounds. no rebound, guarding, masses. Extremities: right lower leg erythematous, non-pitting edema, warm. Peripheral pulses intact and equal. Neurological: Alert. Oriented x3. CN 2-12 grossly intact. Moves all four extremities. - Medical Decision Making 03/14/18 14:03 Lower extremity cellulitis Will do: Labs Xray Duplex Re asess Admit
--- NOTE | 2018-03-14 14:14 | CON.PULM ---
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 No: Dementia Cardio/Vascular: Yes: AFIB, CAD, CHF ([place] on chronic LV systolic and diastolic heart failure), Pulmonary Hypertension, Other (REPAIR OF LARGE ASD) Pulmonary: Yes: COPD, Other (PULMONARY HYPERTENSION). No: Cancer, O2 Dependent , Previously Intubated, Pulmonary Embolus Gastrointestinal: Yes: GI Bleed (REQUIRING DISCONTINUATION OF A/C), Other ( ANOREXIA WITH 20 POUND WEIGHT LOSS IN ONE MONTH). No: Ascites, Cancer Renal/: No: Renal Failure Heme/Onc: Yes: Anemia, Myeloproliferative Synd Psych: No: Addictions Musculoskeletal: Yes: Osteoarthritis. No: Chronic low back pain ENT: Yes: Other (H/O EPISTAXSIS WITH ER VISTS TWICE OVER PAST 12 MONTHS.) Endocrine: No: Diabetes Mellitus, Hypothyroidism - Past Surgical History Additional Surgical History: REPAIR OS ASD07/2008. BIATRIAL MAZE/LIGATION OF LEFT ATRIAL APPENDAGE - Alcohol/Substance Use Hx Alcohol Use: No History of Substance Use: reports: None - Smoking History Smoking history: Former smoker Have you smoked in the past 12 months: No If you are a former smoker, when did you quit?: 1984 - Social History Usual Living Arrangement: With Spouse ADL: Family Assistance Place of : [facility] History of Recent Travel: No Home Medications - Allergies Allergies/Adverse Reactions: Allergies Allergy/AdvReac Type Severity Reaction Status Date / Time No Known Allergies Allergy Verified 03/14/18 12:32 - Home Medications Home Medications: Ambulatory Orders Losartan Potassium 25 mg PO DAILY 11/30/17 Metoprolol Tartrate 25 mg PO BID 11/30/17 Pantoprazole Sodium 40 mg PO DAILY 11/30/17 Family Disease History - Family Disease History Family Disease History: Heart Disease: Father, Sister, CA: Brother (CVA, PROSTATE CANCE,LUNG CANCER,PANCREATIC CANCER), Other: Brother Review of Systems - Review of Systems Constitutional: reports: Loss of Appetite, Unintentional Wgt. Loss, Weakness Eyes: denies: Blurred Vision HENT: denies: Difficult Swallowing Neck: denies: Decreased ROM Cardiovascular: denies: Chest Pain Respiratory: reports: Cough, Exercise Intolerance, Orthopnea, SOB on Exertion. denies: Hemoptysis, Wheezing Gastrointestinal: denies: Abdominal Pain Genitourinary: reports: No Symptoms Breasts: reports: No Symptoms Reported Musculoskeletal: reports: Back Pain, Muscle Weakness Integumentary: reports: Bruising, Other Neurological: reports: Pre-Existing Deficit, Other (BELLS PALSY RESOLVING) Endocrine: reports: Intolerance to Cold, Unexplained Weight Loss Hematology/Lymphatic: reports: Easily Bruised Psychiatric: reports: No Symptoms Physical Exam Vital Sings: Vital Signs Temperature 98.2 F 03/14/18 12:30 Pulse Rate 63 03/14/18 12:30 Respiratory Rate 16 03/14/18 12:30 Blood Pressure 108/52 03/14/18 12:30 O2 Sat by Pulse Oximetry (%) 100 03/14/18 12:30 Constitutional: Yes: Calm Eyes: Yes: EOM Intact HENT: Yes: Normocephalic Neck: Yes: Trachea Midline Cardiovascular: Yes: Regular Rate and Rhythm, S1, S2 Respiratory: Yes: CTA Bilaterally Gastrointestinal: Yes: Normal Bowel Sounds, Soft Renal/: Yes: WNL Breast(s): Yes: WNL Musculoskeletal: Yes: Joint Stiffness Extremities: Yes: Calf Tenderness, Erythema Edema: RLE: 3+ Integumentary: Yes: Bruising, Erythema Neurological: Yes: Alert Labs: PENDING Imaging - Results Chest X-ray: Pending Ultrasound: Pending Problem List - Problems (1) Failure to thrive in adult Code(s): R62.7 - ADULT FAILURE TO THRIVE (2) Severe anemia Code(s): D64.9 - ANEMIA, UNSPECIFIED (3) Status post Maze operation for atrial fibrillation Code(s): Z98.890 - OTHER SPECIFIED POSTPROCEDURAL STATES; Z86.79 - PERSONAL HISTORY OF OTHER DISEASES OF THE CIRCULATORY SYSTEM (4) Status post balloon dilatation of esophageal stricture Code(s): Z98.890 - OTHER SPECIFIED POSTPROCEDURAL STATES (5) Systolic and diastolic CHF, acute on chronic Code(s): I50.43 - ACUTE ON CHRONIC COMBINED SYSTOLIC AND DIASTOLIC HRT FAIL (6) Atrial fibrillation Code(s): I48.91 - UNSPECIFIED ATRIAL FIBRILLATION Qualifiers: Atrial fibrillation type: persistent Qualified Code(s): I48.1 - Persistent atrial fibrillation (7) B-cell lymphoma Code(s): C85.10 - UNSPECIFIED B-CELL LYMPHOMA, UNSPECIFIED SITE Qualifiers: B-cell lymphoma type: unspecified B-cell (8) CAD (coronary artery disease) Code(s): I25.10 - ATHSCL HEART DISEASE OF [place] CORONARY ARTERY W/O ANG PCTRS Qualifiers: Coronary Disease-Associated Artery/Lesion type: [place] artery [place] vs. transplanted heart: [place] heart Associated angina: without angina Qualified Code(s): I25.10 - Atherosclerotic heart disease of [place] coronary artery without angina pectoris (9) COPD (chronic obstructive pulmonary disease) Code(s): J44.9 - CHRONIC OBSTRUCTIVE PULMONARY DISEASE, UNSPECIFIED Qualifiers: COPD type: unspecified COPD Qualified Code(s): J44.9 - Chronic obstructive pulmonary disease, unspecified (10) H/O atrial septal defect repair Code(s): Z98.89 - OTHER SPECIFIED POSTPROCEDURAL STATES * DO NOT USE *; Z87.74 - PERSONAL HISTORY OF CONGENITAL MALFORM OF HEART AND CIRC SYS (11) History of melena Code(s): Z87.19 - PERSONAL HISTORY OF OTHER DISEASES OF THE DIGESTIVE SYSTEM (12) Hypercholesterolemia Code(s): E78.0 - PURE HYPERCHOLESTEROLEMIA * DO NOT USE * (13) Pulmonary HTN Code(s): I27.20 - PULMONARY HYPERTENSION, UNSPECIFIED (14) Reactive airway disease Code(s): J45.909 - UNSPECIFIED ASTHMA, UNCOMPLICATED Qualifiers: Asthma severity: unspecified severity Asthma complication type: uncomplicated Qualified Code(s): J45.909 - Unspecified asthma, uncomplicated (15) Shortness of breath on exertion Code(s): R06.02 - SHORTNESS OF BREATH Assessment/Plan PRESENTS TO OFFICE WITH 5 DAYS OF EDEMA,ERYTHEMA,TENDERNESS OF RIGHT LOWER EXT PATIENT HAD B/L LOWER EXT EDEMA WHICH RESOLVED WITH INCREASE IN DIURETIC OVER PAST 2 WEEKS WOULD PANCULTURE/OBTAIN DUPLEX OF RIGHT LOWER EXT/ID CONSULT/EMPIRIC ANTIBIOTICS CARDIO CONSULT FOR MED ADJUSTMENT/HEME RE-EVAL FOR LOW GRADE B-CELL LYMPHOMA O2 /BRONCHODILATORS REQUIRED WILL FOLLOW WITH YOU Felix ELIZABETH MD
[2018-03-14 14:57] LABS: ALBUMIN 3.1 g/dl (3.4-5.0); ALK PHOS 101 U/L (45-117); ANION GAP 5 MMOL/L (8-16); BILIRUBIN,TOTAL 1.3 mg/dL (0.2-1.0); BLOOD UREA NITROGEN 44 mg/dL (7-18); CALCIUM 8.7 mg/dL (8.5-10.1); CHLORIDE 96 mmol/L (98-107); CO2 34 mmol/L (21-32); CREATININE 1.8 mg/dL (0.7-1.3); GLUCOSE,RANDOM 107 mg/dL (74-106); POTASSIUM 4.8 mmol/L (3.5-5.1); SGOT/AST 16 U/L (15-37); SGPT/ALT 14 U/L (12-78); SODIUM 135 mmol/L (136-145); TOT PROT 8.6 g/dl (6.4-8.2)
[2018-03-14 15:38] LABS: INR 1.14 (0.83-1.09); PROTHROMBIN TIME (PATIENT) 12.9 SEC (9.7-13.0)
[2018-03-14 15:41] LABS: ACTIVATED PTT 39.2 SECONDS (25.2-36.5)
[2018-03-14] MEDS ORDERED: SODIUM CHLORIDE 1,000 ML IV SCH (15:45)
--- NOTE | 2018-03-14 16:21 | EKG ---
Test Reason : Blood Pressure : / mmHG Vent. Rate : 051 BPM Atrial Rate : 051 BPM P-R Int : 000 ms QRS Dur : 166 ms QT Int : 488 ms P-R-T Axes : 000 030 -35 degrees QTc Int : 449 ms SINUS BRADYCARDIA BLOCKED PREMATURE ATRIAL COMPLEXES RIGHT BUNDLE BRANCH BLOCK INFERIOR INFARCT (CITED ON OR BEFORE 14-MAR-2018) ABNORMAL ECG WHEN COMPARED WITH ECG OF 16-AUG-2017 12:00, PREMATURE SUPRAVENTRICULAR COMPLEXES ARE NO LONGER PRESENT AL INTERVAL HAS DECREASED QUESTIONABLE CHANGE IN INITIAL FORCES OF INFERIOR LEADS INVERTED T WAVES HAVE REPLACED NONSPECIFIC T WAVE ABNORMALITY IN INFERIOR LEADS Confirmed by Isaiah Saldana ([id number]) on 03/14/2018 4:21:16 PM Referred By: Confirmed By:Isaiah Saldana
[2018-03-14 16:37] LABS: BASO % 0.9 % (0-2.0); EOS % 2.1 % (0-4.5); HEMATOCRIT 30.7 % (35.4-49); HEMOGLOBIN 9.5 GM/dL (11.7-16.9); LYMPH % 27.4 % (8-40); MCH 24.5 pg (25.7-33.7); MCHC 31.1 g/dl (32.0-35.9); MEAN CELL VOLUME 78.8 fl (80-96); MEAN PLT VOLUME 7.4 fl (7.5-11.1); MONO % 28.3 % (3.8-10.2); NEUT % 41.3 % (42.8-82.8); PLATELET COUNT 161 K/MM3 (134-434); RBC 3.89 M/mm3 (4.00-5.60); RDW 20.5 % (11.9-15.9); WHITE BLOOD COUNT 2.3 K/mm3 (4.0-10.0)
--- NOTE | 2018-03-14 17:18 | CON.CARD ---
Consult Consult Specialty:: Cardiology Referred by:: Ean Pfeiffer MD Reason for Consultation:: Afib/flutter - History of Present Illness Chief Complaint: RLE swelling and erythema History of Present Illness: 87-year-old male with known history of coronary artery disease abnormal pharmacologic (Dipyridamole) myocardial perfusion imaging study single vessel obstructive coronary artery disease on cardiac catheterization coronary angiography April 28, 2015 angina pectoris, diastolic/systolic left ventricular dysfunction with chronic class I-II [place] Heart Association classification left ventricular failure, atrial septal defect post-surgical repair July 16, 2008 (patch repair of ASD, bi-atrial MAZE procedure and ligation of left atrial appendage), persistent atrial fibrillation status post cryo-maze [id number] score of 4 currently off of anticoagulation therapy/ Coumadin related to recurrent gastrointestinal bleed, atypical atrial flutter/ atrial tachycardia, mitral valve regurgitation mild in severity of no clinical significance on echocardiography performed October 28, 2015, aortic valve regurgitation moderate in severity, tricuspid valve regurgitation mild to moderate in severity with RVSP between 50-60 mmHg on echocardiography performed October 28, 2015 and pulmonary artery pressure of 67/30 mmHg on right heart cardiac catheterization April 28, 2015 (not responsive to vasodilator therapy) , hypercholesterolemia, carotid stenosis mild in severity on carotid Doppler study performed October 25, 2013, reactive airway disease/chronic obstructive pulmonary disease, gastro-intestinal bleed, degenerative joint disease and chronic anemia who was last evaluated in the office February 13, 2018. Patient presented with 5 days of right lower extremity erythema, edema, tenderness, had been on diuretics with improved bilateral edema, ruled out for DVT. He continues to report dyspnea with mild to moderate physical exertion and intermittent bilateral lower extremity edema that worsens in the latter part of the day. Patient denies any orthopnea or paroxysmal nocturnal dyspnea. Patient denies any chest discomfort. Patient denies any palpitations, dizziness , lightheadedness or syncope. Patient continues to report persistence of fatigue and tiredness. Patient's ambulation remains limited related to the above-noted clinical presentation and underlying degenerative joint disease. 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 No: Dementia Cardio/Vascular: Yes: AFIB, CAD, CHF ([place] on chronic LV systolic and diastolic heart failure), Pulmonary Hypertension, Other (REPAIR OF LARGE ASD) Pulmonary: Yes: COPD, Other (PULMONARY HYPERTENSION). No: Cancer, O2 Dependent , Previously Intubated, Pulmonary Embolus Gastrointestinal: Yes: GI Bleed (REQUIRING DISCONTINUATION OF A/C), Other ( ANOREXIA WITH 20 POUND WEIGHT LOSS IN ONE MONTH). No: Ascites, Cancer Renal/: No: Renal Failure Psych: No: Addictions Musculoskeletal: Yes: Osteoarthritis. No: Chronic low back pain ENT: Yes: Other (H/O EPISTAXSIS WITH ER VISTS TWICE OVER PAST 12 MONTHS.) Endocrine: No: Diabetes Mellitus, Hypothyroidism - Past Surgical History Additional Surgical History: REPAIR OS ASD07/2008. BIATRIAL MAZE/LIGATION OF LEFT ATRIAL APPENDAGE - Alcohol/Substance Use Hx Alcohol Use: No History of Substance Use: reports: None - Smoking History Smoking history: Never smoked Have you smoked in the past 12 months: No If you are a former smoker, when did you quit?: 1984 - Social History Usual Living Arrangement: With Spouse ADL: Family Assistance History of Recent Travel: No Home Medications - Allergies Allergies/Adverse Reactions: Allergies Allergy/AdvReac Type Severity Reaction Status Date / Time No Known Allergies Allergy Verified 03/14/18 12:32 - Home Medications Home Medications: Ambulatory Orders Losartan Potassium 50 mg PO DAILY 11/30/17 Metoprolol Tartrate 25 mg PO BID 11/30/17 Pantoprazole Sodium 40 mg PO DAILY 11/30/17 Furosemide [Lasix] 40 mg PO DAILY 03/14/18 Polyethylene Glycol [Polyox Wsr-301] 1 gm PO DAILY 03/14/18 Spironolactone 25 mg PO DAILY 03/14/18 Family Disease History - Family Disease History Family Disease History: Heart Disease: Father, Sister, CA: Brother (CVA, PROSTATE CANCE,LUNG CANCER,PANCREATIC CANCER), Other: Brother Review of Systems - Review of Systems Cardiovascular: reports: Edema Integumentary: reports: Erythema Vital Signs: Vital Signs Temperature 98.2 F 03/14/18 12:30 Pulse Rate 63 03/14/18 12:30 Respiratory Rate 16 03/14/18 12:30 Blood Pressure 108/52 03/14/18 12:30 O2 Sat by Pulse Oximetry (%) 100 03/14/18 12:30 Constitutional: Yes: No Distress, Calm Neck: Yes: Supple Respiratory: Yes: Regular, CTA Bilaterally Gastrointestinal: Yes: Normal Bowel Sounds, Soft Cardiovascular: Yes: Regular Rate and Rhythm JVD: No Carotid Bruit: No Heart Sounds: Yes: S1, S2 Murmur: Yes: Systolic Murmur, Grade 2 Edema: Yes Edema: LLE: 1+, RLE: 1+ Integumentary: Yes: Erythema - Other Data Labs, Other Data: CBC, BMP 03/14/18 16:15 03/14/18 14:30 INR, PTT INR 1.14 (0.83-1.09) H 03/14/18 14:35 ECG: SB @ 51 bpm with complete right bundle branch block and T-wave abnormality Imaging - Results Chest X-ray: Report Reviewed (Improved aeration left hemithorax) Problem List - Problems (1) Cellulitis of right leg Code(s): L03.115 - CELLULITIS OF RIGHT LOWER LIMB (2) Status post Maze operation for atrial fibrillation Code(s): Z98.890 - OTHER SPECIFIED POSTPROCEDURAL STATES; Z86.79 - PERSONAL HISTORY OF OTHER DISEASES OF THE CIRCULATORY SYSTEM (3) Systolic and diastolic CHF, acute on chronic Code(s): I50.43 - ACUTE ON CHRONIC COMBINED SYSTOLIC AND DIASTOLIC HRT FAIL (4) Atrial fibrillation Code(s): I48.91 - UNSPECIFIED ATRIAL FIBRILLATION Qualifiers: Atrial fibrillation type: persistent Qualified Code(s): I48.1 - Persistent atrial fibrillation (5) CAD (coronary artery disease) Code(s): I25.10 - ATHSCL HEART DISEASE OF THE [place] CORONARY ARTERY W/O ANG PCTRS Qualifiers: Coronary Disease-Associated Artery/Lesion type: [place] artery [place] vs. transplanted heart: [place] heart Associated angina: without angina Qualified Code(s): I25.10 - Atherosclerotic heart disease of [place] coronary artery without angina pectoris (6) COPD (chronic obstructive pulmonary disease) Code(s): J44.9 - CHRONIC OBSTRUCTIVE PULMONARY DISEASE, UNSPECIFIED Qualifiers: COPD type: unspecified COPD Qualified Code(s): J44.9 - Chronic obstructive pulmonary disease, unspecified (7) H/O atrial septal defect repair Code(s): Z98.89 - OTHER SPECIFIED POSTPROCEDURAL STATES * DO NOT USE *; Z87.74 - PERSONAL HISTORY OF CONGENITAL MALFORM OF HEART AND CIRC SYS (8) Hypercholesterolemia Code(s): E78.0 - PURE HYPERCHOLESTEROLEMIA * DO NOT USE * (9) Hypertension Code(s): I10 - ESSENTIAL (PRIMARY) HYPERTENSION Qualifiers: Hypertension type: essential hypertension Qualified Code(s): I10 - Essential (primary) hypertension (10) Pulmonary HTN Code(s): I27.20 - PULMONARY HYPERTENSION, UNSPECIFIED (11) Right bundle branch block Code(s): I45.10 - UNSPECIFIED RIGHT BUNDLE-BRANCH BLOCK Assessment/Plan Echocardiography performed October 28, 2015 revealed normal left ventricular size and systolic function, moderate reduction in right ventricular systolic function , bi-atrial dilatation left atrial measurement 6.0 cm, mitral annular calcification, aortic valve leaflet sclerosis, aortic root dilatation measuring 4.2 cm, mild mitral valve regurgitation, moderate aortic valve regurgitation, mild to moderate tricuspid valve regurgitation with calculated RVSP between 50- 60 mmHg. Right and left cardiac catheterization coronary angiography performed April revealed single vessel obstructive coronary artery disease (90% ostial LAD-D1 lesion) and moderate to severe degree of pulmonary hypertension not responsive to vasodilator therapy, PA pressure of 67 over 30 mmHg. Echocardiography performed October 02, 2013 revealed normal left ventricular size with mild reduction in left ventricular systolic function, abnormal septal motion, right ventricular dilatation and moderate diffuse hypokinesia, bi- atrial dilatation left atrial measurement of 4.3 cm, mitral annular calcification, aortic valve leaflet sclerosis, mild to moderate eccentric mitral valve regurgitation, moderate aortic valve regurgitation, mild to moderate tricuspid valve regurgitation with calculated RVSP between 50-60 mmHg. Carotid Doppler study performed October 25, 2013 revealed mild degree of atherosclerotic plaque bilaterally with no evidence of hemodynamically significant stenosis. Pharmacologic (Dipyridamole) myocardial perfusion imaging study performed July 29, 2010 reveal small size anterior, aaron-basal wall defect compatible with mild ischemia, small size inferior, infero-basal wall defect compatible with diaphragmatic attenuation with normal left ventricular contraction pattern on LV gated analysis with calculated left ventricular ejection fraction of 69%. ASD repair operative report dated July 16, 2008 included patch repair of ASD, bi-atrial MAZE procedure and ligation of left atrial appendage. Assessment: 1. Right lower extremity swelling, erythema, and edema c/w with cellulitis, ruled out for DVT 2. Diastolic/systolic left ventricular dysfunction with chronic class I-II [place] Heart Association classification left ventricular failure, euvolemic 3. Coronary artery disease abnormal pharmacologic (Dipyridamole) myocardial perfusion imaging study single vessel obstructive coronary artery disease angina pectoris, stable. 4. Persistent atrial fibrillation/atrial flutter post cryo-maze [id number] score of 4 currently off of anticoagulation therapy/Coumadin related to recurrent gastrointestinal bleed (not a candidate for left atrial appendage closure device considering prior history of left atrial appendage ligation performed as July 16, 2008). 5. Paroxysmal atypical atrial tachycardia. 6. Atrial septal defect post-surgical repair. 7. Mitral valve regurgitation mild in severity of no clinical significance. 8. Aortic valve regurgitation moderate in severity. 9. Tricuspid valve regurgitation mild to moderate in severity with RVSP between 50-60 mmHg on echocardiography performed October 28, 2015 and pulmonary artery pressure of 67/30 mmHg on right heart cardiac catheterization April, not responsive to vasodilator therapy. 10. Hypercholesterolemia. 11. Carotid stenosis mild in severity, asymptomatic. 12. History of chronic obstructive pulmonary disease/reactive airway disease. 13. History of recurrent gastro-intestinal bleed. 14. History of degenerative joint disease. PLAN: 1. Empiric abx course per C&S 2. Continue losartan 25 qd, Toprol XL 25 bid, Aldactone 25 bid 3. Patient was strongly counseled dietary compliance including salt and fluid restriction, increase ambulation and weight reduction. 4. Thank you for consultative opportunity
[2018-03-14 17:35] LABS: BASO % 0.6 % (0-2.0); EOS % 2.6 % (0-4.5); HEMOGLOBIN 9.3 GM/dL (11.7-16.9); LYMPH % 23.1 % (8-40); MCH 24.1 pg (25.7-33.7); MEAN CELL VOLUME 77.8 fl (80-96); MEAN PLT VOLUME 7.6 fl (7.5-11.1); MONO % 29.3 % (3.8-10.2); NEUT % 44.4 % (42.8-82.8); PLATELET COUNT 181 K/MM3 (134-434); RBC 3.85 M/mm3 (4.00-5.60); RDW 19.8 % (11.9-15.9); WHITE BLOOD COUNT 2.2 K/mm3 (4.0-10.0)
[2018-03-14 17:47] LABS: INR 1.17 (0.83-1.09); PROTHROMBIN TIME (PATIENT) 13.2 SEC (9.7-13.0)
[2018-03-14 17:53] LABS: ANISOCYTOSIS 1+; MACROCYTOSIS 1+; PLATELET ESTIMATE ADEQUATE
[2018-03-14] MEDS ORDERED: CEFUROXIME INJECTION 750 MG in DEXTROSE 5%-WATER - 50 ML IVPB SCH (18:00)
[2018-03-14 18:07] LABS: ALBUMIN 3.1 g/dl (3.4-5.0); ANION GAP 10 MMOL/L (8-16); BILIRUBIN,TOTAL 1.3 mg/dL (0.2-1.0); BLOOD UREA NITROGEN 41 mg/dL (7-18); CALCIUM 8.8 mg/dL (8.5-10.1); CHLORIDE 96 mmol/L (98-107); CO2 30 mmol/L (21-32); CREATININE 1.6 mg/dL (0.7-1.3); GLUCOSE,RANDOM 97 mg/dL (74-106); SGPT/ALT 15 U/L (12-78); SODIUM 136 mmol/L (136-145); TOT PROT 8.5 g/dl (6.4-8.2)
[2018-03-14 18:08] LABS: ALK PHOS 103 U/L (45-117)
[2018-03-14] MEDS: LOSARTAN POTASSIUM 25 MG TABLET PO SCH (18:27)
[2018-03-14 19:02] LABS: POTASSIUM 4.7 mmol/L (3.5-5.1); SGOT/AST 21 U/L (15-37)
[2018-03-14 19:16] LABS: ANISOCYTOSIS 1+; MACROCYTOSIS 1+; PLATELET ESTIMATE ADEQUATE
--- NOTE | 2018-03-14 19:24 | HP ---
Admitting History and Physical - Admission History of Present Illness: 88 year old male with PMH atrial fibrillation, hypotension, COPD, CHF, pulmonary hypertension, open heart surgery sent to ED by Dr. Pennington for right lower extremity redness, swelling x2 days associated with chills. Pt denies fever, nausea, vomiting, chest pain, shortness of breath, lightheadedness. Pt also complains of 20 pound weight loss. 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 No: Dementia Cardiovascular: Yes: AFIB, CAD (1 vessel ds), CHF ([place] on chronic LV systolic and diastolic heart failure), Pulmonary Hypertension, Other (REPAIR OF LARGE ASD ) Pulmonary: Yes: COPD, Other (PULMONARY HYPERTENSION). No: Cancer, O2 Dependent , Previously Intubated, Pulmonary Embolus Gastrointestinal: Yes: GI Bleed (REQUIRING DISCONTINUATION OF A/C), Other ( ANOREXIA WITH 20 POUND WEIGHT LOSS IN ONE MONTH). No: Ascites, Cancer Renal/: No: Renal Failure Heme/Onc: Yes: Anemia, Myeloproliferative Synd, Other (Low grade Lymphoma) Psych: No: Addictions Musculoskeletal: Yes: Osteoarthritis. No: Chronic low back pain ENT: Yes: Other (H/O EPISTAXSIS WITH ER VISTS TWICE OVER PAST 12 MONTHS.) Endocrine: No: Diabetes Mellitus, Hypothyroidism - Smoking History Smoking history: Never smoked Have you smoked in the past 12 months: No If you are a former smoker, when did you quit?: 1984 - Alcohol/Substance Use Hx Alcohol Use: No History of Substance Use: reports: None - Social History ADL: Family Assistance History of Recent Travel: No Home Medications - Allergies Allergies/Adverse Reactions: Allergies Allergy/AdvReac Type Severity Reaction Status Date / Time No Known Allergies Allergy Verified 03/14/18 12:32 - Home Medications Home Medications: Ambulatory Orders Losartan Potassium 50 mg PO DAILY 11/30/17 Metoprolol Tartrate 25 mg PO BID 11/30/17 Pantoprazole Sodium 40 mg PO DAILY 11/30/17 Furosemide [Lasix] 40 mg PO DAILY 03/14/18 Polyethylene Glycol [Polyox Wsr-301] 1 gm PO DAILY 03/14/18 Spironolactone 25 mg PO DAILY 03/14/18 Family Disease History - Family Disease History Family Disease History: Heart Disease: Father, Sister, [place]: Brother (CVA, PROSTATE CANCE,LUNG CANCER,PANCREATIC CANCER), Other: Brother Review of Systems - Review of Systems Constitutional: reports: Chills, Unintentional Wgt. Loss. denies: Fever HENT: reports: No Symptoms Cardiovascular: reports: No Symptoms Respiratory: reports: No Symptoms Gastrointestinal: reports: No Symptoms Musculoskeletal: reports: Other (swellimg right leg) Integumentary: reports: Erythema Neurological: reports: No Symptoms Physical Examination Vital Signs: Vital Signs Temperature 98.1 F 03/14/18 18:14 Pulse Rate 70 03/14/18 18:14 Respiratory Rate 18 03/14/18 18:14 Blood Pressure 122/74 03/14/18 18:14 O2 Sat by Pulse Oximetry (%) 96 03/14/18 17:38 Cardiovascular: Yes: Murmur, S1, S2 Respiratory: Yes: Regular, CTA Bilaterally Gastrointestinal: Yes: Normal Bowel Sounds, Soft, Other (umbilical hernia). No : Tenderness Extremities: Yes: Erythema. No: Calf Tenderness Edema: Yes Edema: RLE: 1+ Integumentary: Yes: Erythema Neurological: Yes: Alert, Oriented Labs: CBC, BMP 03/14/18 16:15 03/14/18 15:00 Imaging - Results Ultrasound: Report Reviewed Problem List - Problems (1) Cellulitis of right leg Assessment/Plan: IV ABX ID CONSULT FOLLOW LABS AND CULTURES DUPLEX NEG DVT Code(s): L03.115 - CELLULITIS OF RIGHT LOWER LIMB (2) Weight loss Assessment/Plan: -ETIOLOGY TO BE DETERMINED -ONCOLOGY CONSULT -CT SCAN Code(s): R63.4 - ABNORMAL WEIGHT LOSS (3) Lymphoma Assessment/Plan: -lOW GRADE RECENTLY DX -ONCOLOGY CONSULT Code(s): C85.90 - NON-HODGKIN LYMPHOMA, UNSPECIFIED, UNSPECIFIED SITE (4) Atrial fibrillation Assessment/Plan: -AC ON HOLD DUE TO H/O GI BLEED -CARDIO ON BOARD Code(s): I48.91 - UNSPECIFIED ATRIAL FIBRILLATION Qualifiers: Atrial fibrillation type: persistent Qualified Code(s): I48.1 - Persistent atrial fibrillation (5) JE (acute kidney injury) Assessment/Plan: -ON IVF -MONITOR LABS Code(s): N17.9 - ACUTE KIDNEY FAILURE, UNSPECIFIED (6) Neutropenia Assessment/Plan: -PER ONCOLOGY Code(s): D70.9 - NEUTROPENIA, UNSPECIFIED
--- NOTE | 2018-03-14 19:49 | PN ---
Progress Note (short form) - Note Progress Note: ID consult dictated imp/reccd extensive cellulitis RLE ANC 940 -history of lymphoma JE blood cultures vancomycin one dose cefepime f/u cultures f/u labs in am Problem List - Problems (1) Cellulitis of right leg Code(s): L03.115 - CELLULITIS OF RIGHT LOWER LIMB (2) Neutropenia Code(s): D70.9 - NEUTROPENIA, UNSPECIFIED (3) Lymphoma Code(s): C85.90 - NON-HODGKIN LYMPHOMA, UNSPECIFIED, UNSPECIFIED SITE (4) JE (acute kidney injury) Code(s): N17.9 - ACUTE KIDNEY FAILURE, UNSPECIFIED
[2018-03-14] MEDS ORDERED: VANCOMYCIN 1 GM PREMIX - 1 GM/200 ML BAG IVPB ONE (20:00)
--- NOTE | 2018-03-14 20:16 | CONS ---
DATE OF CONSULTATION: DATE OF DICTATION: 03/14/2018 INFECTIOUS DISEASE CONSULTATION REQUESTING PHYSICIAN: Yehuda Morley M.D. CONSULTING PHYSICIAN: Eliza Espinoza M.D. HISTORY OF PRESENT ILLNESS: This is an 88-year-old man with a past medical history of coronary artery disease. He has a history of COPD as well as a history of COPD, atrial fibrillation, B cell lymphoma who is admitted with erythema of his right leg that he says has happened over the last 2 days. He reports his leg was very, very swollen. He was placed on diuretics. The leg started leaking on the diuretics. He developed a small tear in the lateral aspect of the leg, and then over the last 2 days he has developed progressive erythema. He notices a small tear on the back of his leg as well. He notes he has felt more chills than usual but denies any fevers. In the emergency room he was noted to be afebrile. He had a vascular study of his leg done, duplex that was negative for DVT. I am asked to see him for antibiotic management. PAST MEDICAL HISTORY: Notable for history of Cardenas's palsy, atrial fibrillation, coronary artery disease, CHF. He has had pulmonary hypertension, repair of ASD, COPD, he has had a GI bleed in the past, renal failure, anemia, B cell lymphoma, osteoarthritis, he has had a and ligation of left atrial appendage in the past. SOCIAL HISTORY: Lives at home with his . There is no history of any substance use. There has been no recent travel. REVIEW OF SYSTEMS: He has not had any recent water exposure to his leg. He does own a pool, but he has not been in it for the last 2-3 weeks. He has recently taken a fall at home which resulted in an ecchymotic lesion around his eye. ALLERGIES: He has no known drug allergies. MEDICATION: At home include losartan, metoprolol, pantoprazole. FAMILY HISTORY: Notable for heart disease and prostate cancer, lung cancer, and pancreatic cancer in siblings. REVIEW OF SYSTEMS: Notable for bilateral leg swelling followed by erythema of his legs. PHYSICAL EXAMINATION: GENERAL: He is awake and alert in no acute distress. VITAL SIGNS: Temperature 98.1, pulse 70, blood pressure 122/74, respiratory rate 18. His weight is 72 kg. HEENT: Normocephalic. Eyes are anicteric. NECK: Supple. LUNGS: Clear to auscultation. HEART: He has diminished breath sounds in the bases. He has a 2/6 systolic ejection murmur. ABDOMEN: Soft, nontender. EXTREMITIES: Notable for diffuse erythema of the right leg from above his foot to below his knee. There is no involvement of the ankle joint or the knee joint. Chest x-ray is notable for prior open heart surgery with improvement of his x-ray. LABORATORY: Notable for white count of 2.3, hemoglobin 9.5, platelets of 161. He has 40% neutrophils. He has an ANC of 920. His BUN and creatinine are elevated with BUN of 41 and creatinine of 1.6. IMPRESSION: In summary, this is an elderly man admitted with right lower extremity cellulitis. On review, he was last in the hospital in June. He has history of resistant organisms. This is an 88-year-old man with extensive cellulitis of his right lower extremity. Would cover him with vancomycin for possible methicillin-resistant Staphylococcus aureus, given the extent of the cellulitis. Would treat him with cefepime as well, as his ANC is less than 1000 with follow up of his cultures, hopefully we can adjust and de-escalate his antibiotics. ELIZA ESPINOZA M.D. [id number]
[2018-03-14] MEDS: CEFEPIME HCL/D5W 1 GM/50 ML BAG IVPB SCH (21:10)
[2018-03-14] MEDS: metoPROLOL SUCCINATE 25 MG TAB.SR.24H (FP) PO SCH (21:11)
[2018-03-14] MEDS: SPIRONOLACTONE 25 MG TABLET (FP) PO SCH (21:11)
[2018-03-15] MEDS ORDERED: PT OWN MED DRAWER 7, Y5N ONE (06:09)
--- NOTE | 2018-03-15 07:31 | PN ---
Progress Note, Physician History of Present Illness: FEELS BETTER - Current Medication List Current Medications: Active Medications Sodium Chloride (Normal Saline -) 1,000 mls @ 75 mls/hr IV ASDIR [facility] Last Admin: 03/14/18 17:40 Dose: 75 mls/hr Cefepime HCl (Maxipime 1 Gm Premix Ivpb) 1 gm in 50 mls @ 100 mls/hr IVPB BID [facility]; Protocol Last Admin: 03/14/18 21:10 Dose: 100 mls/hr Losartan Potassium (Cozaar -) 25 mg PO DAILY [facility] Last Admin: 03/14/18 18:27 Dose: Not Given Metoprolol Succinate (Toprol Xl -) 25 mg PO BID [facility] Last Admin: 03/14/18 21:11 Dose: 25 mg Pantoprazole Sodium (Protonix -) 40 mg PO DAILY [facility] Spironolactone (Aldactone -) 25 mg PO BID [facility] Last Admin: 03/14/18 21:11 Dose: 25 mg - Objective Vital Signs: Vital Signs Temperature 98.4 F 03/15/18 01:33 Pulse Rate 58 L 03/15/18 01:33 Respiratory Rate 18 03/15/18 01:33 Blood Pressure 109/42 03/15/18 01:33 O2 Sat by Pulse Oximetry (%) 94 L 03/14/18 21:00 Cardiovascular: Yes: Murmur, S1, S2 Respiratory: Yes: Regular, CTA Bilaterally Gastrointestinal: Yes: Normal Bowel Sounds, Soft Edema: RLE: 1+ Integumentary: Yes: Erythema Labs: INR, PTT INR 1.17 (0.83-1.09) H 03/14/18 15:00 Problem List - Problems (1) Cellulitis of right leg Assessment/Plan: IV ABX ID CONSULT FOLLOW LABS AND CULTURES DUPLEX NEG DVT Code(s): L03.115 - CELLULITIS OF RIGHT LOWER LIMB (2) Weight loss Assessment/Plan: -ETIOLOGY TO BE DETERMINED -ONCOLOGY CONSULT -CT SCAN--AWAIT RENAL FUNCTION Code(s): R63.4 - ABNORMAL WEIGHT LOSS (3) Lymphoma Assessment/Plan: -lOW GRADE RECENTLY DX -ONCOLOGY CONSULT Code(s): C85.90 - NON-[place]IN LYMPHOMA, UNSPECIFIED, UNSPECIFIED SITE (4) Atrial fibrillation Assessment/Plan: -AC ON HOLD DUE TO H/O GI BLEED -CARDIO ON BOARD Code(s): I48.91 - UNSPECIFIED ATRIAL FIBRILLATION Qualifiers: Atrial fibrillation type: persistent Qualified Code(s): I48.1 - Persistent atrial fibrillation (5) JE (acute kidney injury) Assessment/Plan: -ON IVF -MONITOR LABS Code(s): N17.9 - ACUTE KIDNEY FAILURE, UNSPECIFIED (6) Neutropenia Assessment/Plan: -PER ONCOLOGY Code(s): D70.9 - NEUTROPENIA, UNSPECIFIED
[2018-03-15 08:00] LABS: BASO % 0.6 % (0-2.0); EOS % 6.5 % (0-4.5); HEMATOCRIT 26.1 % (35.4-49); HEMOGLOBIN 8.1 GM/dL (11.7-16.9); LYMPH % 23.7 % (8-40); MCH 24.3 pg (25.7-33.7); MCHC 31.2 g/dl (32.0-35.9); MEAN CELL VOLUME 77.9 fl (80-96); MEAN PLT VOLUME 7.5 fl (7.5-11.1); MONO % 33.9 % (3.8-10.2); NEUT % 35.3 % (42.8-82.8); PLATELET COUNT 163 K/MM3 (134-434); RBC 3.35 M/mm3 (4.00-5.60); RDW 20.1 % (11.9-15.9)
[2018-03-15 08:02] LABS: ANION GAP 10 MMOL/L (8-16); BLOOD UREA NITROGEN 37 mg/dL (7-18); CALCIUM 8.4 mg/dL (8.5-10.1); CHLORIDE 98 mmol/L (98-107); CO2 31 mmol/L (21-32); CREATININE 1.4 mg/dL (0.7-1.3); GLUCOSE,RANDOM 100 mg/dL (74-106); POTASSIUM 4.3 mmol/L (3.5-5.1); SODIUM 139 mmol/L (136-145)
[2018-03-15 08:35] LABS: WHITE BLOOD COUNT 1.8 K/mm3 (4.0-10.0)
--- NOTE | 2018-03-15 09:40 | PN ---
Progress Note, Physician Chief Complaint: AWAKE AND ALERT ALL EVENTS AND NOTES REVIEWED DENIES FEVER APPETITIE IS GOOD +BM - Current Medication List Current Medications: Active Medications Sodium Chloride (Normal Saline -) 1,000 mls @ 75 mls/hr IV ASDIR [facility] Last Admin: 03/14/18 17:40 Dose: 75 mls/hr Cefepime HCl (Maxipime 1 Gm Premix Ivpb) 1 gm in 50 mls @ 100 mls/hr IVPB BID [facility]; Protocol Last Admin: 03/14/18 21:10 Dose: 100 mls/hr Losartan Potassium (Cozaar -) 25 mg PO DAILY [facility] Last Admin: 03/14/18 18:27 Dose: Not Given Metoprolol Succinate (Toprol Xl -) 25 mg PO BID [facility] Last Admin: 03/14/18 21:11 Dose: 25 mg Pantoprazole Sodium (Protonix -) 40 mg PO DAILY [facility] Spironolactone (Aldactone -) 25 mg PO BID [facility] Last Admin: 03/14/18 21:11 Dose: 25 mg - Objective Vital Signs: Vital Signs Temperature 98.4 F 03/15/18 01:33 Pulse Rate 58 L 03/15/18 01:33 Respiratory Rate 18 03/15/18 01:33 Blood Pressure 109/42 03/15/18 01:33 O2 Sat by Pulse Oximetry (%) 94 L 03/14/18 21:00 Constitutional: Yes: Mild Distress Eyes: Yes: WNL HENT: Yes: WNL Neck: Yes: WNL Cardiovascular: Yes: Pulse Irregular Respiratory: Yes: WNL Gastrointestinal: Yes: WNL Genitourinary: Yes: WNL Extremities: Yes: Erythema Edema: Yes Edema: LLE: 1+, RLE: 1+ Peripheral Pulses WNL: Yes Integumentary: Yes: Erythema Wound/Incision: Yes: Open to air Neurological: Yes: Pre-Existing Deficit, Weakness ...Motor Strength: LLE, RLE Psychiatric: Yes: WNL Labs: CBC, BMP 03/15/18 06:00 03/15/18 06:00 INR, PTT INR 1.17 (0.83-1.09) H 03/14/18 15:00 Problem List - Problems (1) JE (acute kidney injury) Code(s): N17.9 - ACUTE KIDNEY FAILURE, UNSPECIFIED (2) Cellulitis of right leg Code(s): L03.115 - CELLULITIS OF RIGHT LOWER LIMB (3) Lymphoma Code(s): C85.90 - NON-HODGKIN LYMPHOMA, UNSPECIFIED, UNSPECIFIED SITE (4) Neutropenia Code(s): D70.9 - NEUTROPENIA, UNSPECIFIED (5) Weight loss Code(s): R63.4 - ABNORMAL WEIGHT LOSS (6) Atrial fibrillation Code(s): I48.91 - UNSPECIFIED ATRIAL FIBRILLATION Qualifiers: Atrial fibrillation type: persistent Qualified Code(s): I48.1 - Persistent atrial fibrillation (7) CAD (coronary artery disease) Code(s): I25.10 - ATHSCL HEART DISEASE OF [place] CORONARY ARTERY W/O ANG PCTRS Qualifiers: Coronary Disease-Associated Artery/Lesion type: [place] artery [place] vs. transplanted heart: [place] heart Associated angina: without angina Qualified Code(s): I25.10 - Atherosclerotic heart disease of [place] coronary artery without angina pectoris (8) COPD (chronic obstructive pulmonary disease) Code(s): J44.9 - CHRONIC OBSTRUCTIVE PULMONARY DISEASE, UNSPECIFIED Qualifiers: COPD type: unspecified COPD Qualified Code(s): J44.9 - Chronic obstructive pulmonary disease, unspecified (9) Pulmonary HTN Code(s): I27.20 - PULMONARY HYPERTENSION, UNSPECIFIED Assessment/Plan IV ABX CELLULITIS RIGHT LEG ID AND ONCOLOGY EVAL DVT PROPHYLAXIS OOB TO CHAIR PT JSOE QUARLESAL/NEBS/02 SUPPORT
[2018-03-15] MEDS ORDERED: SPIRONOLACTONE 25 MG TABLET (FP) PO SCH (10:00)
[2018-03-15] MEDS: metoPROLOL SUCCINATE 25 MG TAB.SR.24H (FP) PO SCH ×2 (10:14→22:24)
[2018-03-15] MEDS: LOSARTAN POTASSIUM 25 MG TABLET PO SCH (10:14)
[2018-03-15] MEDS: PANTOPRAZOLE 40 MG TABLET (FP) PO SCH (10:14)
[2018-03-15] MEDS: SPIRONOLACTONE 25 MG TABLET (FP) PO SCH ×2 (10:14→22:24)
[2018-03-15] MEDS: CEFEPIME HCL/D5W 1 GM/50 ML BAG IVPB SCH ×2 (10:15→22:24)
--- NOTE | 2018-03-15 11:05 | PN ---
Progress Note, Physician History of Present Illness: RLE erythema and warmth, afebrile - Current Medication List Current Medications: Active Medications Sodium Chloride (Normal Saline -) 1,000 mls @ 75 mls/hr IV ASDIR [facility] Last Admin: 03/14/18 17:40 Dose: 75 mls/hr Cefepime HCl (Maxipime 1 Gm Premix Ivpb) 1 gm in 50 mls @ 100 mls/hr IVPB BID [facility]; Protocol Last Admin: 03/15/18 10:15 Dose: 100 mls/hr Losartan Potassium (Cozaar -) 25 mg PO DAILY [facility] Last Admin: 03/15/18 10:14 Dose: 25 mg Metoprolol Succinate (Toprol Xl -) 25 mg PO BID [facility] Last Admin: 03/15/18 10:14 Dose: 25 mg Pantoprazole Sodium (Protonix -) 40 mg PO DAILY [facility] Last Admin: 03/15/18 10:14 Dose: 40 mg Spironolactone (Aldactone -) 25 mg PO BID [facility] Last Admin: 03/15/18 10:14 Dose: 25 mg - Objective Vital Signs: Vital Signs Temperature 98.4 F 03/15/18 01:33 Pulse Rate 58 L 03/15/18 01:33 Respiratory Rate 18 03/15/18 09:00 Blood Pressure 109/42 03/15/18 01:33 O2 Sat by Pulse Oximetry (%) 94 L 03/15/18 09:00 Constitutional: Yes: No Distress, Calm Neck: Yes: Supple Cardiovascular: Yes: Regular Rate and Rhythm Respiratory: Yes: Regular, CTA Bilaterally Gastrointestinal: Yes: Normal Bowel Sounds, Soft Extremities: Yes: Erythema Edema: Yes Edema: RLE: 2+ Labs: CBC, BMP 03/15/18 06:00 03/15/18 06:00 INR, PTT INR 1.17 (0.83-1.09) H 03/14/18 15:00 Problem List - Problems (1) Cellulitis of right leg Code(s): L03.115 - CELLULITIS OF RIGHT LOWER LIMB (2) Status post Maze operation for atrial fibrillation Code(s): Z98.890 - OTHER SPECIFIED POSTPROCEDURAL STATES; Z86.79 - PERSONAL HISTORY OF OTHER DISEASES OF THE CIRCULATORY SYSTEM (3) Systolic and diastolic CHF, acute on chronic Code(s): I50.43 - ACUTE ON CHRONIC COMBINED SYSTOLIC AND DIASTOLIC HRT FAIL (4) Atrial fibrillation Code(s): I48.91 - UNSPECIFIED ATRIAL FIBRILLATION Qualifiers: Atrial fibrillation type: persistent Qualified Code(s): I48.1 - Persistent atrial fibrillation (5) CAD (coronary artery disease) Code(s): I25.10 - ATHSCL HEART DISEASE OF [place] CORONARY ARTERY W/O ANG PCTRS Qualifiers: Coronary Disease-Associated Artery/Lesion type: [place] artery [place] vs. transplanted heart: [place] heart Associated angina: without angina Qualified Code(s): I25.10 - Atherosclerotic heart disease of [place] coronary artery without angina pectoris (6) COPD (chronic obstructive pulmonary disease) Code(s): J44.9 - CHRONIC OBSTRUCTIVE PULMONARY DISEASE, UNSPECIFIED Qualifiers: COPD type: unspecified COPD Qualified Code(s): J44.9 - Chronic obstructive pulmonary disease, unspecified (7) H/O atrial septal defect repair Code(s): Z98.89 - OTHER SPECIFIED POSTPROCEDURAL STATES * DO NOT USE *; Z87.74 - PERSONAL HISTORY OF CONGENITAL MALFORM OF HEART AND CIRC SYS (8) Hypercholesterolemia Code(s): E78.0 - PURE HYPERCHOLESTEROLEMIA * DO NOT USE * (9) Hypertension Code(s): I10 - ESSENTIAL (PRIMARY) HYPERTENSION Qualifiers: Hypertension type: essential hypertension Qualified Code(s): I10 - Essential (primary) hypertension (10) Pulmonary HTN Code(s): I27.20 - PULMONARY HYPERTENSION, UNSPECIFIED (11) Right bundle branch block Code(s): I45.10 - UNSPECIFIED RIGHT BUNDLE-BRANCH BLOCK Assessment/Plan Echocardiography performed October 28, 2015 revealed normal left ventricular size and systolic function, moderate reduction in right ventricular systolic function , bi-atrial dilatation left atrial measurement 6.0 cm, mitral annular calcification, aortic valve leaflet sclerosis, aortic root dilatation measuring 4.2 cm, mild mitral valve regurgitation, moderate aortic valve regurgitation, mild to moderate tricuspid valve regurgitation with calculated RVSP between 50- 60 mmHg. Right and left cardiac catheterization coronary angiography performed April revealed single vessel obstructive coronary artery disease (90% ostial LAD-D1 lesion) and moderate to severe degree of pulmonary hypertension not responsive to vasodilator therapy, PA pressure of 67 over 30 mmHg. Echocardiography performed October 02, 2013 revealed normal left ventricular size with mild reduction in left ventricular systolic function, abnormal septal motion, right ventricular dilatation and moderate diffuse hypokinesia, bi- atrial dilatation left atrial measurement of 4.3 cm, mitral annular calcification, aortic valve leaflet sclerosis, mild to moderate eccentric mitral valve regurgitation, moderate aortic valve regurgitation, mild to moderate tricuspid valve regurgitation with calculated RVSP between 50-60 mmHg. Carotid Doppler study performed October 25, 2013 revealed mild degree of atherosclerotic plaque bilaterally with no evidence of hemodynamically significant stenosis. Pharmacologic (Dipyridamole) myocardial perfusion imaging study performed July 29, 2010 reveal small size anterior, aaron-basal wall defect compatible with mild ischemia, small size inferior, infero-basal wall defect compatible with diaphragmatic attenuation with normal left ventricular contraction pattern on LV gated analysis with calculated left ventricular ejection fraction of 69%. ASD repair operative report dated July 16, 2008 included patch repair of ASD, bi-atrial MAZE procedure and ligation of left atrial appendage. Assessment: 1. Right lower extremity swelling, erythema, and edema c/w with cellulitis, ruled out for DVT 2. Diastolic/systolic left ventricular dysfunction with chronic class I-II [place] [employer] classification left ventricular failure, euvolemic 3. Coronary artery disease abnormal pharmacologic (Dipyridamole) myocardial perfusion imaging study single vessel obstructive coronary artery disease angina pectoris, stable. 4. Persistent atrial fibrillation/atrial flutter post cryo-maze [id number] score of 4 currently off of anticoagulation therapy/Coumadin related to recurrent gastrointestinal bleed (not a candidate for left atrial appendage closure device considering prior history of left atrial appendage ligation performed as July 16, 2008). 5. Paroxysmal atypical atrial tachycardia. 6. Atrial septal defect post-surgical repair. 7. Mitral valve regurgitation mild in severity of no clinical significance. 8. Aortic valve regurgitation moderate in severity. 9. Tricuspid valve regurgitation mild to moderate in severity with RVSP between 50-60 mmHg on echocardiography performed October 28, 2015 and pulmonary artery pressure of 67/30 mmHg on right heart cardiac catheterization April, not responsive to vasodilator therapy. 10. Hypercholesterolemia. 11. Carotid stenosis mild in severity, asymptomatic. 12. Acute on CKD 13. History of chronic obstructive pulmonary disease/reactive airway disease. 14. History of recurrent gastro-intestinal bleed. 15. History of degenerative joint disease. PLAN: 1. Empiric abx course per C&S 2. Continue losartan 25 qd, Toprol XL 25 bid, Aldactone 25 bid 3. Patient was strongly counseled dietary compliance including salt and fluid restriction, increase ambulation and weight reduction.
--- NOTE | 2018-03-15 11:59 | EKG ---
Test Reason : Blood Pressure : / mmHG Vent. Rate : 063 BPM Atrial Rate : 063 BPM P-R Int : 276 ms QRS Dur : 174 ms QT Int : 476 ms P-R-T Axes : 073 046 -21 degrees QTc Int : 487 ms SINUS RHYTHM WITH 1ST DEGREE A-V BLOCK RIGHT BUNDLE BRANCH BLOCK POSSIBLE INFERIOR INFARCT (CITED ON OR BEFORE 14-MAR-2018) ABNORMAL ECG WHEN COMPARED WITH ECG OF 14-MAR-2018 14:14, [place] INTERVAL HAS INCREASED Confirmed by MT DANIELS, STEFANIE ([id number]) on 03/15/2018 11:58:45 AM Referred By: Confirmed By:STEFANIE AMOR MD
--- NOTE | 2018-03-15 13:04 | PN ---
Progress Note (short form) - Note Progress Note: PULMONARY RLE pain better. LE dopplers negative for DVT. Vital Signs Period Temp Pulse Resp BP Sys/Brian Pulse Ox Last 24 Hr 98.1 F-98.9 F 58-70 18-18 103-132/42-74 94-96 Gen: NAD at rest Heart: irregular Lung: decreased breath sounds at the bases Abd: soft, nontender Ext: RLE edema, erythema CBC, BMP 03/15/18 06:00 03/15/18 06:00 Active Medications Sodium Chloride (Normal Saline -) 1,000 mls @ 75 mls/hr IV ASDIR [facility] Last Admin: 03/14/18 17:40 Dose: 75 mls/hr Cefepime HCl (Maxipime 1 Gm Premix Ivpb) 1 gm in 50 mls @ 100 mls/hr IVPB BID [facility]; Protocol Last Admin: 03/15/18 10:15 Dose: 100 mls/hr Losartan Potassium (Cozaar -) 25 mg PO DAILY [facility] Last Admin: 03/15/18 10:14 Dose: 25 mg Metoprolol Succinate (Toprol Xl -) 25 mg PO BID [facility] Last Admin: 03/15/18 10:14 Dose: 25 mg Pantoprazole Sodium (Protonix -) 40 mg PO DAILY [facility] Last Admin: 03/15/18 10:14 Dose: 40 mg Spironolactone (Aldactone -) 25 mg PO BID [facility] Last Admin: 03/15/18 10:14 Dose: 25 mg A/P RLE Cellulitis LV Diastolic/Systolic Dysfunction CAD Atrial Fibrillation Paroxysmal Atrial Tachycardia Aortic Regurgitation Pulmonary HTN COPD Leukopenia - continue antibiotics - f/u cultures - wound care - rate controlled - inhaled bronchodilators, will add home symbicort
[2018-03-15 14:50] LABS: ANISOCYTOSIS 1+
--- NOTE | 2018-03-15 15:39 | PN ---
Progress Note (short form) - Note Progress Note: leg is a bit improved no fevers Vital Signs Period Temp Pulse Resp BP Sys/Brian Pulse Ox Last 24 Hr 97.9 F-98.9 F 58-70 18-18 103-132/42-74 94-96 cor-rrr lungs clear abd soft,nt ext less erythema of the RLE CBC, BMP 03/15/18 06:00 03/15/18 06:00 Microbiology 03/14/18 17:18 Blood - Peripheral Venous Blood Culture - Preliminary Pending Organism 03/14/18 14:06 Blood - Peripheral Venous Blood Culture - Preliminary NO GROWTH OBTAINED AFTER 24 HOURS, INCUBATION TO CONTINUE FOR 4 DAYS. 03/14/18 14:06 Blood - Peripheral Venous Blood Culture - Preliminary NO GROWTH OBTAINED AFTER 24 HOURS, INCUBATION TO CONTINUE FOR 4 DAYS. Laboratory Tests 03/15/18 06:00 Random Vancomycin 11.89 imp/reccd extensive cellulitis RLE neutropenia bacteremia lymphoma continue vanco/cefepime Problem List - Problems (1) Cellulitis of right leg Code(s): L03.115 - CELLULITIS OF RIGHT LOWER LIMB (2) Neutropenia Code(s): D70.9 - NEUTROPENIA, UNSPECIFIED (3) Lymphoma Code(s): C85.90 - NON-HODGKIN LYMPHOMA, UNSPECIFIED, UNSPECIFIED SITE (4) JE (acute kidney injury) Code(s): N17.9 - ACUTE KIDNEY FAILURE, UNSPECIFIED
[2018-03-15] MEDS: BUDESONIDE/FORMETEROL FUMARATE 160/4.5 mcg INHALER IH SCH ×2 (16:03→22:24)
[2018-03-15] MEDS: BACITRACIN 15 GM TUBE TOPICAL OINTMENT TP SCH ×2 (16:04→22:23)
[2018-03-15] MEDS: VANCOMYCIN 1 GM PREMIX - 1 GM/200 ML BAG IVPB SCH (16:41)
--- NOTE | 2018-03-15 16:55 | CONSULT ---
Consultation: REQUESTING PROVIDER: CONSULT REQUEST: We have been asked to medically evaluate this patient for ( evaluation of B Cell lymphoma). HISTORY OF PRESENT ILLNESS: Patient is an 88 year old male was sent by Dr. Pfeiffer for evaluation and treatment of cellulitis of the RLE. As per the patient, he noticed serosanguinous fluids coming out from the RLE, took water pill hoping it would improve but the symptoms didn't subside Then started having Unilateral RLE swelling associated with low grade fever and chills x 1 week. Hence went to his PCP who sent him to the hospital for treatment. Denies chest pain, sob, cough, palpitation, abdominal pain, nausea or vomiting. Bowel/Bladder habit normal. BM today Sleep/Appetite normal. 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 ALLERGIES: NKDA FAMILY HISTORY: Brother of prostate ca Father of heart problems and mother at 89 SOCIAL HISTORY Smoking: Smoked for 38 yrs, about a pack/day, quit at age 49. Alcohol: Drinks scotch daily about 6 ounces/day Drugs: Denies REVIEW OF SYSTEMS: CONSTITUTIONAL: Present: generalized weakness, fever, chills, Absent:diaphoresis, , malaise, loss of appetite, weight change HEENT: Absent: rhinorrhea, nasal congestion, throat pain, throat swelling, difficulty swallowing, mouth swelling, ear pain, eye pain, visual changes CARDIOVASCULAR: Absent: chest pain, syncope, palpitations, irregular heart rate, lightheadedness , peripheral edema RESPIRATORY: Absent: cough, shortness of breath, dyspnea with exertion, orthopnea, wheezing, stridor, hemoptysis GASTROINTESTINAL: Absent: abdominal pain, abdominal distension, nausea, vomiting, diarrhea, constipation, melena, hematochezia GENITOURINARY: Absent: dysuria, frequency, urgency, hesitancy, hematuria, flank pain, genital pain MUSCULOSKELETAL: Absent: myalgia, arthralgia, joint swelling, back pain, neck pain SKIN: Present: Redness in the skin, swelling of RLE. Absent: rash, itching, pallor HEMATOLOGIC/IMMUNOLOGIC: Absent: easy bleeding, easy bruising, lymphadenopathy, frequent infections ENDOCRINE: Absent: unexplained weight gain, unexplained weight loss, heat intolerance, cold intolerance NEUROLOGIC: Absent: headache, focal weakness or paresthesias, dizziness, unsteady gait, seizure, mental status changes, bladder or bowel incontinence PSYCHIATRIC: Absent: anxiety, depression, suicidal or homicidal ideation, hallucinations. PHYSICAL EXAMINATION Vital Signs - 24 hr 03/14/18 03/14/18 03/14/18 17:38 18:14 21:00 Temperature 98.1 F Pulse Rate 70 Pulse Rate [ 68 Apical] Respiratory 18 18 Rate Blood Pressure 122/74 Blood Pressure 132/53 [Left Arm] O2 Sat by Pulse 96 94 L Oximetry (%) 03/14/18 03/15/18 03/15/18 22:00 01:33 09:00 Temperature 98.9 F 98.4 F Pulse Rate 67 58 L Pulse Rate [ Apical] Respiratory 18 18 18 Rate Blood Pressure 103/48 109/42 Blood Pressure [Left Arm] O2 Sat by Pulse 94 L Oximetry (%) 03/15/18 14:02 Temperature 97.9 F Pulse Rate 62 Pulse Rate [ Apical] Respiratory 18 Rate Blood Pressure 110/43 Blood Pressure [Left Arm] O2 Sat by Pulse Oximetry (%) GENERAL: Elderly male, sitting comfortably in bed, Awake, alert, and fully oriented, in no acute distress. HEAD: Normal with no signs of trauma. EYES: Drooping on the right eye +, no pallor or icterus EARS, NOSE, THROAT: Ears normal. Moist mucous membranes. FACE: Bruise on the right cheek. NECK: Supple. LUNGS: B/L Breath sounds equal, clear to auscultation bilaterally. No wheezes, and no crackles. No accessory muscle use. HEART: Irregularly irregular rate and rhythm, normal S1 and S2 without murmur. ABDOMEN: Soft, nontender, not distended, normoactive bowel sounds, no guarding, no rebound, no masses. No hepatomegaly or splenomegaly. MUSCULOSKELETAL: Normal range of motion at all joints. No bony deformities or tenderness. No CVA tenderness. UPPER EXTREMITIES: 2+ pulses, warm, well-perfused. No cyanosis. No clubbing. Cap refill <2 seconds. No peripheral edema. LEFT LOWER EXTREMITY: 2+ pulses, warm, well-perfused. No calf tenderness. No peripheral edema. RIGHT LOWER EXTREMITY: Erythema +, Swelling +, minimal serosanguinous fluid, dressing applied (didn't open it as it was just changed and seen by ID) NEUROLOGICAL: No facial droop. Normal speech. Gait not observed. PSYCHIATRIC: Cooperative. Good eye contact. Appropriate mood and affect. SKIN: Warm, dry, normal turgor. Erythema+ RLE. Laboratory Results - last 24 hr 03/14/18 03/14/18 03/14/18 15:00 15:00 15:00 WBC 2.2 L RBC 3.85 L Hgb 9.3 L Hct 30.0 L MCV 77.8 L MCH 24.1 L D MCHC 31.0 L RDW 19.8 H Plt Count 181 MPV 7.6 Absolute Neuts (auto) 1.0 L Total Counted 100 Neutrophils % 44.4 D Neutrophils % (Manual) 45.0 D Lymphocytes % 23.1 D Lymphocytes % (Manual) 23.0 D Monocytes % 29.3 H D Monocytes % (Manual) 30 H D Eosinophils % 2.6 D Eosinophils % (Manual) 2.0 D Basophils % 0.6 Nucleated RBC % 0 Hypochromia 1+ Platelet Estimate Adequate Platelet Comment No clumping noted Anisocytosis 1+ Microcytosis Macrocytosis 1+ Jayant Cells PT with INR 13.20 H INR 1.17 H Sodium 136 Potassium 4.7 Chloride 96 L Carbon Dioxide 30 Anion Gap 10 BUN 41 H Creatinine 1.6 H Creat Clearance w eGFR 40.90 Random Glucose 97 Lactic Acid Calcium 8.8 Total Bilirubin 1.3 H AST 21 D ALT 15 Alkaline Phosphatase 103 Total Protein 8.5 H Albumin 3.1 L Random Vancomycin 03/14/18 03/14/18 03/15/18 16:15 17:18 06:00 WBC 2.3 L RBC 3.89 L Hgb 9.5 L Hct 30.7 L MCV 78.8 L MCH 24.5 L MCHC 31.1 L RDW 20.5 H Plt Count 161 MPV 7.4 L Absolute Neuts (auto) 1.0 L Total Counted 100 Neutrophils % 41.3 L Neutrophils % (Manual) 40.0 L Lymphocytes % 27.4 Lymphocytes % (Manual) 28.0 D Monocytes % 28.3 H Monocytes % (Manual) 30 H Eosinophils % 2.1 Eosinophils % (Manual) 2.0 Basophils % 0.9 Nucleated RBC % 0 Hypochromia 1+ Platelet Estimate Adequate Platelet Comment No clumping noted Anisocytosis 1+ Microcytosis Macrocytosis 1+ Jayant Cells 2+ PT with INR INR Sodium Potassium Chloride Carbon Dioxide Anion Gap BUN Creatinine Creat Clearance w eGFR Random Glucose Lactic Acid 1.3 Calcium Total Bilirubin AST ALT Alkaline Phosphatase Total Protein Albumin Random Vancomycin 11.89 03/15/18 03/15/18 06:00 06:00 WBC 1.8 L* RBC 3.35 L Hgb 8.1 L Hct 26.1 L MCV 77.9 L MCH 24.3 L MCHC 31.2 L RDW 20.1 H Plt Count 163 MPV 7.5 Absolute Neuts (auto) 0.6 L Total Counted 100 Neutrophils % 35.3 L Neutrophils % (Manual) 42.0 L Lymphocytes % 23.7 Lymphocytes % (Manual) 23.0 Monocytes % 33.9 H Monocytes % (Manual) 27 H Eosinophils % 6.5 H D Eosinophils % (Manual) 8.0 H D Basophils % 0.6 Nucleated RBC % 0 Hypochromia 1+ Platelet Estimate Platelet Comment Anisocytosis 1+ Microcytosis 1+ Macrocytosis [place] Cells PT with INR INR Sodium 139 Potassium 4.3 Chloride 98 Carbon Dioxide 31 Anion Gap 10 BUN 37 H Creatinine 1.4 H Creat Clearance w eGFR 47.72 Random Glucose 100 Lactic Acid Calcium 8.4 L Total Bilirubin AST ALT Alkaline Phosphatase Total Protein Albumin Random Vancomycin Active Medications Generic Name Dose Route Start Last Admin Trade Name Freq PRN Reason Stop Dose Admin Bacitracin 1 applic 03/15/18 13:15 03/15/18 16:04 Bacitracin - TP 1 applic BID RUIBA Administration Budesonide/Formoterol Fumarate 2 puff 03/15/18 13:15 03/15/18 16:03 Symbicort 160/4.5mcg - IH 2 puff BID RUBIA Administration Sodium Chloride 1,000 mls @ 75 mls/hr 03/14/18 15:45 03/14/18 17:40 Normal Saline - IV 75 mls/hr ASDIR RUBIA Administration Cefepime HCl 1 gm in 50 mls @ 100 mls/hr 03/14/18 20:00 03/15/18 10:15 Maxipime 1 Gm Premix Ivpb IVPB 100 mls/hr BID RUBIA Administration Protocol Vancomycin HCl 1 gm in 200 mls @ 133.333 mls/hr 03/15/18 15:45 03/15/18 16:41 Vancomycin 1 Gm Premix - IVPB 133.333 mls/hr Q24H RUBIA Administration Protocol Losartan Potassium 25 mg 03/14/18 16:30 03/15/18 10:14 Cozaar - PO 25 mg DAILY RUBIA Administration Metoprolol Succinate 25 mg 03/14/18 22:00 03/15/18 10:14 Toprol Xl - PO 25 mg BID RUBIA Administration Pantoprazole Sodium 40 mg 03/15/18 10:00 03/15/18 10:14 Protonix - PO 40 mg DAILY RUBIA Administration Spironolactone 25 mg 03/14/18 22:00 03/15/18 10:14 Aldactone - PO 25 mg BID RUBIA Administration Patient is an 88 year old male was sent by Dr. Pfeiffer for evaluation and treatment of cellulitis of the RLE. ASSESSMENT Cellulitis of RLE- On IV Vanc and IV Cefepime. DVT ruled out Neutropenia JE B Cell lymphoma (patient not aware of his condition) Microcytic anemia [place] palsy Recent mechanical fall 3 weeks ago, B cell lymphoma Atrial fibrillation-rate controlled, not on AC CAD CHF ASD repair GI bleed- not actively bleeding COPD- Not in exacerbation Hypertension-stable PLAN: Neutropenia Patients WBC today is 1.8, has been neutropenic since 10/2016 ranging from [id number] It could be related to his cellulitis however given the h/o of neutropenia since 2017, less likely infection is only the contributing factor for neutopenia Hopefully, it will improve after treating the cellulitis with IV antibiotics. B Cell lymphoma Patient is not aware he has lymphoma. Will order Flow Cytometry and depending upon the results, will consider a bone marrow aspiration. Would consider CT of abdomen/Pelvis and Chest. Acute on chronic microcytic anemia H/H 8.1/26.1 MCV 77.9 Iron studies ordered for AM. No indication for transfusion at this time Transfuse if actively bleeding or if Hb is < 7gm/dl. Plan of care explained to the patient. He verbalized understanding. Case discussed with Dr. Corbin. Dispo: We will continue to follow the patient. Thank you for this consultative opportunity.
--- NOTE | 2018-03-15 18:38 | PN ---
Teaching Attending Note Name of Resident: Ashley Flores ATTENDING PHYSICIAN STATEMENT I saw and evaluated the patient. I reviewed the resident's note and discussed the case with the resident. I agree with the resident's findings and plan as documented. SUBJECTIVE: Patient seen and examined Presents with RLE cellulitis. Has history of "B" cell lymphoma Review of past records - Neutropenia dating back to 2017. Some recent worsening may be secondary to current infection. Has ANC of 600 so on broad spectrum antibiotics Describes 50 lb weight loss over past year. Attributes this to no longer cooking. No fevers or night sweats. OBJECTIVE: Last Vital Signs Temp Pulse Resp BP Pulse Ox 97.8 F 66 18 124/54 94 L 03/15/18 17:44 03/15/18 17:44 03/15/18 17:44 03/15/18 17:44 03/15/18 09:00 HEENT: TAM, EOM Intact, Cardenas's Palsy Oropharynx: No thrush, No mucositis Nodes: Without adenopathy Cor: atrial fib, systolic murmur Lungs: Clear to P&A Abd: Soft, Normal bowel sounds, No organomegaly, distended , umbilical hernia Ext:LE edema Skin: stasis LLE, cellulitis RLE ASSESSMENT AND PLAN: Plan: Antibiotics per I.D. Flow cytometry CT-chest , abdomen, pelvis Consider bone marrow Check Fe++ studies for anemia.
[2018-03-16 07:20] LABS: BASO % 0.9 % (0-2.0); EOS % 7.2 % (0-4.5); HEMATOCRIT 29.8 % (35.4-49); HEMOGLOBIN 9.1 GM/dL (11.7-16.9); LYMPH % 30.7 % (8-40); MCH 23.7 pg (25.7-33.7); MCHC 30.6 g/dl (32.0-35.9); MEAN CELL VOLUME 77.3 fl (80-96); MEAN PLT VOLUME 7.4 fl (7.5-11.1); MONO % 25.5 % (3.8-10.2); NEUT % 35.7 % (42.8-82.8); PLATELET COUNT 180 K/MM3 (134-434); RBC 3.86 M/mm3 (4.00-5.60); RDW 20.7 % (11.9-15.9)
[2018-03-16 07:26] LABS: WHITE BLOOD COUNT 1.6 K/mm3 (4.0-10.0)
--- NOTE | 2018-03-16 07:26 | PN ---
Progress Note, Physician History of Present Illness: FEELS BETTER - Current Medication List Current Medications: Active Medications Bacitracin (Bacitracin -) 1 applic TP BID [facility] Last Admin: 03/15/18 22:23 Dose: 1 applic Budesonide/Formoterol Fumarate (Symbicort 160/4.5mcg -) 2 puff IH BID [facility] Last Admin: 03/15/18 22:24 Dose: 2 puff Sodium Chloride (Normal Saline -) 1,000 mls @ 75 mls/hr IV ASDIR [facility] Last Admin: 03/14/18 17:40 Dose: 75 mls/hr Cefepime HCl (Maxipime 1 Gm Premix Ivpb) 1 gm in 50 mls @ 100 mls/hr IVPB BID [facility]; Protocol Last Admin: 03/15/18 22:24 Dose: 100 mls/hr Vancomycin HCl (Vancomycin 1 Gm Premix -) 1 gm in 200 mls @ 133.333 mls/hr IVPB Q24H [facility]; Protocol Last Admin: 03/15/18 16:41 Dose: 133.333 mls/hr Losartan Potassium (Cozaar -) 25 mg PO DAILY [facility] Last Admin: 03/15/18 10:14 Dose: 25 mg Metoprolol Succinate (Toprol Xl -) 25 mg PO BID [facility] Last Admin: 03/15/18 22:24 Dose: 25 mg Pantoprazole Sodium (Protonix -) 40 mg PO DAILY [facility] Last Admin: 03/15/18 10:14 Dose: 40 mg Spironolactone (Aldactone -) 25 mg PO BID [facility] Last Admin: 03/15/18 22:24 Dose: 25 mg - Objective Vital Signs: Vital Signs Temperature 61 F L 03/16/18 05:56 Pulse Rate 61 03/16/18 05:56 Respiratory Rate 20 03/16/18 05:56 Blood Pressure 116/54 03/16/18 05:56 O2 Sat by Pulse Oximetry (%) 94 L 03/15/18 21:00 Cardiovascular: Yes: S1, S2 Respiratory: Yes: Regular, CTA Bilaterally Gastrointestinal: Yes: Normal Bowel Sounds, Soft Edema: Yes Integumentary: Yes: Erythema Labs: INR, PTT INR 1.17 (0.83-1.09) H 03/14/18 15:00 Problem List - Problems (1) Cellulitis of right leg Assessment/Plan: IV ABX ID CONSULT FOLLOW LABS AND CULTURES DUPLEX NEG DVT Code(s): L03.115 - CELLULITIS OF RIGHT LOWER LIMB (2) Weight loss Assessment/Plan: -ETIOLOGY TO BE DETERMINED -ONCOLOGY CONSULT -CT SCAN--Ordered Code(s): R63.4 - ABNORMAL WEIGHT LOSS (3) Lymphoma Assessment/Plan: -lOW GRADE RECENTLY DX -ONCOLOGY CONSULT Code(s): C85.90 - NON-[place] LYMPHOMA, UNSPECIFIED, UNSPECIFIED SITE (4) Atrial fibrillation Assessment/Plan: -AC ON HOLD DUE TO H/O GI BLEED -CARDIO ON BOARD Code(s): I48.91 - UNSPECIFIED ATRIAL FIBRILLATION Qualifiers: Atrial fibrillation type: persistent Qualified Code(s): I48.1 - Persistent atrial fibrillation (5) JE (acute kidney injury) Assessment/Plan: -ON IVF -MONITOR LABS Code(s): N17.9 - ACUTE KIDNEY FAILURE, UNSPECIFIED (6) Neutropenia Assessment/Plan: -PER ONCOLOGY Code(s): D70.9 - NEUTROPENIA, UNSPECIFIED
[2018-03-16 07:54] LABS: ALBUMIN 2.6 g/dl (3.4-5.0); ANION GAP 9 MMOL/L (8-16); BLOOD UREA NITROGEN 29 mg/dL (7-18); CALCIUM 8.7 mg/dL (8.5-10.1); CHLORIDE 99 mmol/L (98-107); CO2 29 mmol/L (21-32); CREATININE 1.2 mg/dL (0.7-1.3); GLUCOSE,RANDOM 104 mg/dL (74-106); POTASSIUM 4.5 mmol/L (3.5-5.1); SGOT/AST 15 U/L (15-37); SGPT/ALT 12 U/L (12-78); SODIUM 137 mmol/L (136-145)
[2018-03-16 07:56] LABS: ALK PHOS 88 U/L (45-117); BILIRUBIN,TOTAL 0.7 mg/dL (0.2-1.0); TOT PROT 7.5 g/dl (6.4-8.2)
--- NOTE | 2018-03-16 10:07 | PN ---
Progress Note, Physician Chief Complaint: SITTING COMFORTABLY DENIES FEVER OR CHILLS - Current Medication List Current Medications: Active Medications Bacitracin (Bacitracin -) 1 applic TP BID [facility] Last Admin: 03/15/18 22:23 Dose: 1 applic Budesonide/Formoterol Fumarate (Symbicort 160/4.5mcg -) 2 puff IH BID [facility] Last Admin: 03/15/18 22:24 Dose: 2 puff Sodium Chloride (Normal Saline -) 1,000 mls @ 75 mls/hr IV ASDIR [facility] Last Admin: 03/14/18 17:40 Dose: 75 mls/hr Cefepime HCl (Maxipime 1 Gm Premix Ivpb) 1 gm in 50 mls @ 100 mls/hr IVPB BID [facility]; Protocol Last Admin: 03/15/18 22:24 Dose: 100 mls/hr Vancomycin HCl (Vancomycin 1 Gm Premix -) 1 gm in 200 mls @ 133.333 mls/hr IVPB Q24H [facility]; Protocol Last Admin: 03/15/18 16:41 Dose: 133.333 mls/hr Losartan Potassium (Cozaar -) 25 mg PO DAILY [facility] Last Admin: 03/15/18 10:14 Dose: 25 mg Metoprolol Succinate (Toprol Xl -) 25 mg PO BID [facility] Last Admin: 03/15/18 22:24 Dose: 25 mg Pantoprazole Sodium (Protonix -) 40 mg PO DAILY [facility] Last Admin: 03/15/18 10:14 Dose: 40 mg Spironolactone (Aldactone -) 25 mg PO BID [facility] Last Admin: 03/15/18 22:24 Dose: 25 mg - Objective Vital Signs: Vital Signs Temperature 61 F L 03/16/18 05:56 Pulse Rate 61 03/16/18 05:56 Respiratory Rate 20 03/16/18 05:56 Blood Pressure 116/54 03/16/18 05:56 O2 Sat by Pulse Oximetry (%) 94 L 03/15/18 21:00 Constitutional: Yes: No Distress Eyes: Yes: WNL HENT: Yes: WNL Neck: Yes: WNL Cardiovascular: Yes: Pulse Irregular Respiratory: Yes: WNL, On Nasal O2 Gastrointestinal: Yes: WNL Genitourinary: Yes: Other Musculoskeletal: Yes: Muscle Weakness Extremities: Yes: Erythema Edema: Yes Edema: LLE: 1+, RLE: 1+ Peripheral Pulses WNL: Yes Integumentary: Yes: Erythema, Pressure Ulcer, Rash, Venous Stasis Changes Wound/Incision: Yes: Dressing Dry and Intact Neurological: Yes: Pre-Existing Deficit ...Motor Strength: LLE, RLE Psychiatric: Yes: WNL Labs: CBC, BMP 03/16/18 06:00 03/16/18 06:00 INR, PTT INR 1.17 (0.83-1.09) H 03/14/18 15:00 Problem List - Problems (1) JE (acute kidney injury) Code(s): N17.9 - ACUTE KIDNEY FAILURE, UNSPECIFIED (2) Cellulitis of right leg Code(s): L03.115 - CELLULITIS OF RIGHT LOWER LIMB (3) Lymphoma Code(s): C85.90 - NON-[place] LYMPHOMA, UNSPECIFIED, UNSPECIFIED SITE (4) Neutropenia Code(s): D70.9 - NEUTROPENIA, UNSPECIFIED (5) Weight loss Code(s): R63.4 - ABNORMAL WEIGHT LOSS (6) Atrial fibrillation Code(s): I48.91 - UNSPECIFIED ATRIAL FIBRILLATION Qualifiers: Atrial fibrillation type: persistent Qualified Code(s): I48.1 - Persistent atrial fibrillation (7) CAD (coronary artery disease) Code(s): I25.10 - ATHSCL HEART DISEASE OF [place] CORONARY ARTERY W/O ANG PCTRS Qualifiers: Coronary Disease-Associated Artery/Lesion type: [place] artery [place] vs. transplanted heart: [place] heart Associated angina: without angina Qualified Code(s): I25.10 - Atherosclerotic heart disease of [place] coronary artery without angina pectoris (8) COPD (chronic obstructive pulmonary disease) Code(s): J44.9 - CHRONIC OBSTRUCTIVE PULMONARY DISEASE, UNSPECIFIED Qualifiers: COPD type: unspecified COPD Qualified Code(s): J44.9 - Chronic obstructive pulmonary disease, unspecified (9) Pulmonary HTN Code(s): I27.20 - PULMONARY HYPERTENSION, UNSPECIFIED Assessment/Plan IV ABX CT SCAN PER ONCOLOGY OOB TO CHAIR LEGS IMPROVING CELLULITIS AWAITING CULTURES DVT PROPHYLAXIS
[2018-03-16 11:03] LABS: ANISOCYTOSIS 1+; MACROCYTOSIS 0; PLATELET ESTIMATE NORMAL
[2018-03-16] MEDS: BACITRACIN 15 GM TUBE TOPICAL OINTMENT TP SCH ×2 (11:03→22:15)
[2018-03-16] MEDS: PANTOPRAZOLE 40 MG TABLET (FP) PO SCH (11:03)
[2018-03-16] MEDS: BUDESONIDE/FORMETEROL FUMARATE 160/4.5 mcg INHALER IH SCH ×2 (11:03→22:16)
[2018-03-16] MEDS: CEFEPIME HCL/D5W 1 GM/50 ML BAG IVPB SCH ×2 (11:03→22:15)
[2018-03-16] MEDS: LOSARTAN POTASSIUM 25 MG TABLET PO SCH (11:03)
[2018-03-16] MEDS: metoPROLOL SUCCINATE 25 MG TAB.SR.24H (FP) PO SCH ×2 (11:03→22:17)
[2018-03-16] MEDS: SPIRONOLACTONE 25 MG TABLET (FP) PO SCH ×2 (11:08→22:14)
--- NOTE | 2018-03-16 12:10 | PN ---
Progress Note, Physician History of Present Illness: RLE erythema, tenderness and warmth improving, afebrile - Current Medication List Current Medications: Active Medications Bacitracin (Bacitracin -) 1 applic TP BID [facility] Last Admin: 03/16/18 11:03 Dose: 1 applic Budesonide/Formoterol Fumarate (Symbicort 160/4.5mcg -) 2 puff IH BID [facility] Last Admin: 03/16/18 11:03 Dose: 2 puff Sodium Chloride (Normal Saline -) 1,000 mls @ 75 mls/hr IV ASDIR [facility] Last Admin: 03/14/18 17:40 Dose: 75 mls/hr Cefepime HCl (Maxipime 1 Gm Premix Ivpb) 1 gm in 50 mls @ 100 mls/hr IVPB BID [facility]; Protocol Last Admin: 03/16/18 11:03 Dose: 100 mls/hr Vancomycin HCl (Vancomycin 1 Gm Premix -) 1 gm in 200 mls @ 133.333 mls/hr IVPB Q24H [facility]; Protocol Last Admin: 03/15/18 16:41 Dose: 133.333 mls/hr Losartan Potassium (Cozaar -) 25 mg PO DAILY [facility] Last Admin: 03/16/18 11:03 Dose: 25 mg Metoprolol Succinate (Toprol Xl -) 25 mg PO BID [facility] Last Admin: 03/16/18 11:03 Dose: 25 mg Pantoprazole Sodium (Protonix -) 40 mg PO DAILY [facility] Last Admin: 03/16/18 11:03 Dose: 40 mg Spironolactone (Aldactone -) 25 mg PO BID [facility] Last Admin: 03/16/18 11:08 Dose: 25 mg - Objective Vital Signs: Vital Signs Temperature 98.1 F 03/16/18 11:10 Pulse Rate 61 03/16/18 11:10 Respiratory Rate 18 03/16/18 11:10 Blood Pressure 119/62 03/16/18 11:10 O2 Sat by Pulse Oximetry (%) 94 L 03/15/18 21:00 Constitutional: Yes: No Distress, Calm Neck: Yes: Supple Cardiovascular: Yes: Pulse Irregular Respiratory: Yes: Regular, Diminished Gastrointestinal: Yes: Normal Bowel Sounds, Soft, Abdomen, Obese Extremities: Yes: Erythema Edema: Yes Edema: RLE: Trace Labs: CBC, BMP 03/16/18 06:00 03/16/18 06:00 INR, PTT INR 1.17 (0.83-1.09) H 03/14/18 15:00 Problem List - Problems (1) Cellulitis of right leg Code(s): L03.115 - CELLULITIS OF RIGHT LOWER LIMB (2) Status post Maze operation for atrial fibrillation Code(s): Z98.890 - OTHER SPECIFIED POSTPROCEDURAL STATES; Z86.79 - PERSONAL HISTORY OF OTHER DISEASES OF THE CIRCULATORY SYSTEM (3) Systolic and diastolic CHF, acute on chronic Code(s): I50.43 - ACUTE ON CHRONIC COMBINED SYSTOLIC AND DIASTOLIC HRT FAIL (4) Atrial fibrillation Code(s): I48.91 - UNSPECIFIED ATRIAL FIBRILLATION Qualifiers: Atrial fibrillation type: persistent Qualified Code(s): I48.1 - Persistent atrial fibrillation (5) CAD (coronary artery disease) Code(s): I25.10 - ATHSCL HEART DISEASE OF [place] CORONARY ARTERY W/O ANG PCTRS Qualifiers: Coronary Disease-Associated Artery/Lesion type: [place] artery [place] vs. transplanted heart: [place] heart Associated angina: without angina Qualified Code(s): I25.10 - Atherosclerotic heart disease of [place] coronary artery without angina pectoris (6) COPD (chronic obstructive pulmonary disease) Code(s): J44.9 - CHRONIC OBSTRUCTIVE PULMONARY DISEASE, UNSPECIFIED Qualifiers: COPD type: unspecified COPD Qualified Code(s): J44.9 - Chronic obstructive pulmonary disease, unspecified (7) H/O atrial septal defect repair Code(s): Z98.89 - OTHER SPECIFIED POSTPROCEDURAL STATES * DO NOT USE *; Z87.74 - PERSONAL HISTORY OF CONGENITAL MALFORM OF HEART AND CIRC SYS (8) Hypercholesterolemia Code(s): E78.0 - PURE HYPERCHOLESTEROLEMIA * DO NOT USE * (9) Hypertension Code(s): I10 - ESSENTIAL (PRIMARY) HYPERTENSION Qualifiers: Hypertension type: essential hypertension Qualified Code(s): I10 - Essential (primary) hypertension (10) Pulmonary HTN Code(s): I27.20 - PULMONARY HYPERTENSION, UNSPECIFIED (11) Right bundle branch block Code(s): I45.10 - UNSPECIFIED RIGHT BUNDLE-BRANCH BLOCK Assessment/Plan Echocardiography performed October 28, 2015 revealed normal left ventricular size and systolic function, moderate reduction in right ventricular systolic function , bi-atrial dilatation left atrial measurement 6.0 cm, mitral annular calcification, aortic valve leaflet sclerosis, aortic root dilatation measuring 4.2 cm, mild mitral valve regurgitation, moderate aortic valve regurgitation, mild to moderate tricuspid valve regurgitation with calculated RVSP between 50- 60 mmHg. Right and left cardiac catheterization coronary angiography performed April revealed single vessel obstructive coronary artery disease (90% ostial LAD-D1 lesion) and moderate to severe degree of pulmonary hypertension not responsive to vasodilator therapy, PA pressure of 67 over 30 mmHg. Echocardiography performed October 02, 2013 revealed normal left ventricular size with mild reduction in left ventricular systolic function, abnormal septal motion, right ventricular dilatation and moderate diffuse hypokinesia, bi- atrial dilatation left atrial measurement of 4.3 cm, mitral annular calcification, aortic valve leaflet sclerosis, mild to moderate eccentric mitral valve regurgitation, moderate aortic valve regurgitation, mild to moderate tricuspid valve regurgitation with calculated RVSP between 50-60 mmHg. Carotid Doppler study performed October 25, 2013 revealed mild degree of atherosclerotic plaque bilaterally with no evidence of hemodynamically significant stenosis. Pharmacologic (Dipyridamole) myocardial perfusion imaging study performed July 29, 2010 reveal small size anterior, aaron-basal wall defect compatible with mild ischemia, small size inferior, infero-basal wall defect compatible with diaphragmatic attenuation with normal left ventricular contraction pattern on LV gated analysis with calculated left ventricular ejection fraction of 69%. ASD repair operative report dated July 16, 2008 included patch repair of ASD, bi-atrial MAZE procedure and ligation of left atrial appendage. Assessment: 1. Right lower extremity swelling, erythema, and edema c/w with cellulitis, ruled out for DVT 2. Diastolic/systolic left ventricular dysfunction with chronic class I-II [place] [employer] classification left ventricular failure, euvolemic 3. Coronary artery disease abnormal pharmacologic (Dipyridamole) myocardial perfusion imaging study single vessel obstructive coronary artery disease angina pectoris, stable. 4. Persistent atrial fibrillation/atrial flutter post cryo-maze [id number] score of 4 currently off of anticoagulation therapy/Coumadin related to recurrent gastrointestinal bleed (not a candidate for left atrial appendage closure device considering prior history of left atrial appendage ligation performed as July 16, 2008). 5. Paroxysmal atypical atrial tachycardia. 6. Atrial septal defect post-surgical repair. 7. Mitral valve regurgitation mild in severity of no clinical significance. 8. Aortic valve regurgitation moderate in severity. 9. Tricuspid valve regurgitation mild to moderate in severity with RVSP between 50-60 mmHg on echocardiography performed October 28, 2015 and pulmonary artery pressure of 67/30 mmHg on right heart cardiac catheterization April, not responsive to vasodilator therapy. 10. Hypercholesterolemia. 11. Carotid stenosis mild in severity, asymptomatic. 12. Acute on CKD 13. History of chronic obstructive pulmonary disease/reactive airway disease. 14. History of recurrent gastro-intestinal bleed. 15. History of degenerative joint disease. 16. H/o B-cell lymphoma with leukopenia PLAN: 1. Empiric abx course per C&S 2. Continue losartan 25 qd, Toprol XL 25 bid, Aldactone 25 bid 3. Heme evaluation including Flow cytometry, CT-chest , abdomen, pelvis, Consider bone marrow, Check Fe++ studies for anemia.
[2018-03-16] MEDS: VANCOMYCIN 1 GM PREMIX - 1 GM/200 ML BAG IVPB SCH (14:49)
--- NOTE | 2018-03-16 16:20 | PN ---
Progress Note (short form) - Note Progress Note: leg improving Vital Signs Period Temp Pulse Resp BP Sys/Brian Pulse Ox Last 24 Hr 61 F-98.6 F 61-67 18-20 116-125/49-62 94 cor-rrr lungs clear abd soft,nt ext less erythema of the RLE CBC, BMP 03/16/18 06:00 03/16/18 06:00 Microbiology 03/14/18 14:06 Blood - Peripheral Venous Blood Culture - Preliminary NO GROWTH OBTAINED AFTER 48 HOURS, INCUBATION TO CONTINUE FOR 3 DAYS. 03/14/18 14:06 Blood - Peripheral Venous Blood Culture - Preliminary NO GROWTH OBTAINED AFTER 48 HOURS, INCUBATION TO CONTINUE FOR 3 DAYS. 03/14/18 17:18 Blood - Peripheral Venous Blood Culture - Preliminary Staphylococcus Coagulase Neg 03/14/18 17:18 Blood - Peripheral Venous Blood Culture - Preliminary NO GROWTH OBTAINED AFTER 24 HOURS, INCUBATION TO CONTINUE FOR 4 DAYS. imp/reccd extensive cellulitis RLE neutropenia bacteremia lymphoma blood culture- contaminant scn one bottle d/c vancomycin continue cefepime Problem List - Problems (1) Cellulitis of right leg Code(s): L03.115 - CELLULITIS OF RIGHT LOWER LIMB (2) Neutropenia Code(s): D70.9 - NEUTROPENIA, UNSPECIFIED (3) Lymphoma Code(s): C85.90 - NON-[place]ODGKIN LYMPHOMA, UNSPECIFIED, UNSPECIFIED SITE (4) JE (acute kidney injury) Code(s): N17.9 - ACUTE KIDNEY FAILURE, UNSPECIFIED
--- NOTE | 2018-03-16 16:59 | PN ---
Physical Exam: SUBJECTIVE: Patient seen and examined at bed side this morning. No complaints. Denies chest pain, sob, cough, palpitation, abdominal pain, nausea or vomiting. Bowel/Bladder habit normal. Sleep/Appetite normal. OBJECTIVE: Vital Signs Period Temp Pulse Resp BP Sys/Brian Pulse Ox Last 24 Hr 61 F-98.6 F 61-67 18-20 116-125/49-62 94 GENERAL: Elderly male, sitting comfortably in bed, Awake, alert, and fully oriented, in no acute distress. HEAD: Normal with no signs of trauma. EYES: Drooping on the right eye +, no pallor or icterus EARS, NOSE, THROAT: Ears normal. Moist mucous membranes. FACE: Bruise on the right cheek. NECK: Supple. LUNGS: B/L Breath sounds equal, clear to auscultation bilaterally. No wheezes, and no crackles. No accessory muscle use. HEART: Irregularly irregular rate and rhythm, normal S1 and S2 without murmur. ABDOMEN: Soft, nontender, not distended, normoactive bowel sounds, no guarding, no rebound, no masses. No hepatomegaly or splenomegaly. MUSCULOSKELETAL: Normal range of motion at all joints. No bony deformities or tenderness. No CVA tenderness. UPPER EXTREMITIES: 2+ pulses, warm, well-perfused. No cyanosis. No clubbing. Cap refill <2 seconds. No peripheral edema. LEFT LOWER EXTREMITY: 2+ pulses, warm, well-perfused. No calf tenderness. No peripheral edema. RIGHT LOWER EXTREMITY: Erythema +, Swelling +, minimal serosanguinous fluid, dressing applied (didn't open it) NEUROLOGICAL: Right sided facial droop +. Normal speech. Gait not observed. PSYCHIATRIC: Cooperative. Good eye contact. Appropriate mood and affect. SKIN: Warm, dry, normal turgor. Erythema+ RLE. Laboratory Results - last 24 hr 03/16/18 03/16/18 03/16/18 06:00 06:00 06:00 WBC 1.6 L* RBC 3.86 L Hgb 9.1 L Hct 29.8 L MCV 77.3 L MCH 23.7 L MCHC 30.6 L RDW 20.7 H Plt Count 180 MPV 7.4 L Absolute Neuts (auto) 0.6 L Neutrophils % 35.7 L Neutrophils % (Manual) 45.7 Band Neutrophils % 0.0 Lymphocytes % 30.7 D Lymphocytes % (Manual) 21.9 Monocytes % 25.5 H Monocytes % (Manual) 20 H Eosinophils % 7.2 H Eosinophils % (Manual) 7.6 H Basophils % 0.9 Basophils % (Manual) 0.0 Myelocytes % (Man) 1 D Promyelocytes % (Man) 0 Blast Cells % (Manual) 0 Nucleated RBC % 1 H Metamyelocytes 3 H D Hypochromia 0 Platelet Estimate Normal Polychromasia 0 Poikilocytosis 0 Anisocytosis 1+ Microcytosis 1+ Macrocytosis 0 Sodium 137 Potassium 4.5 Chloride 99 Carbon Dioxide 29 Anion Gap 9 BUN 29 H Creatinine 1.2 Creat Clearance w eGFR 57.01 Random Glucose 104 Calcium 8.7 Ferritin 50.0 Total Bilirubin 0.7 AST 15 D ALT 12 Alkaline Phosphatase 88 D Total Protein 7.5 Albumin 2.6 L Active Medications Generic Name Dose Route Start Last Admin Trade Name Freq PRN Reason Stop Dose Admin Bacitracin 1 applic 03/15/18 13:15 03/16/18 11:03 Bacitracin - TP 1 applic BID [facility] Administration Budesonide/Formoterol Fumarate 2 puff 03/15/18 13:15 03/16/18 11:03 Symbicort 160/4.5mcg - IH 2 puff BID [facility] Administration Sodium Chloride 1,000 mls @ 75 mls/hr 03/14/18 15:45 03/14/18 17:40 Normal Saline - IV 75 mls/hr ASDIR [facility] Administration Cefepime HCl 1 gm in 50 mls @ 100 mls/hr 03/14/18 20:00 03/16/18 11:03 Maxipime 1 Gm Premix Ivpb IVPB 100 mls/hr BID [facility] Administration Protocol Losartan Potassium 25 mg 03/14/18 16:30 03/16/18 11:03 Cozaar - PO 25 mg DAILY [facility] Administration Metoprolol Succinate 25 mg 03/14/18 22:00 03/16/18 11:03 Toprol Xl - PO 25 mg BID [facility] Administration Pantoprazole Sodium 40 mg 03/15/18 10:00 03/16/18 11:03 Protonix - PO 40 mg DAILY [facility] Administration Spironolactone 25 mg 03/14/18 22:00 03/16/18 11:08 Aldactone - PO 25 mg BID [facility] Administration Patient is an 88 year old male was sent by Dr. Pfeiffer for evaluation and treatment of cellulitis of the RLE. ASSESSMENT Cellulitis of RLE- On IV Cefepime. DVT ruled out Neutropenia JE B Cell lymphoma (patient not aware of his condition) Microcytic anemia [place] palsy Recent mechanical fall 3 weeks ago, B cell lymphoma Atrial fibrillation-rate controlled, not on AC CAD CHF ASD repair GI bleed- not actively bleeding COPD- Not in exacerbation Hypertension-stable PLAN: Neutropenia Patients WBC today is 1.6 from 1.8, has been neutropenic since 10/2016 ranging from [id number] It could be related to his cellulitis however given the h/o of neutropenia since 2017, less likely infection is only the contributing factor for neutopenia Hopefully, it will improve after treating the cellulitis with IV antibiotics. B Cell lymphoma Will order Flow Cytometry and depending upon the results, will consider a bone marrow aspiration. Would consider CT of abdomen/Pelvis and Chest. Acute on chronic microcytic anemia H/H 8.1/26.1 ---> 9.1/29.8 Iron studies pending No indication for transfusion at this time Transfuse if actively bleeding or if Hb is < 7gm/dl. Plan of care explained to the patient. He verbalized understanding. Case discussed with Dr. Lebron. Dispo: We will continue to follow the patient. Thank you for this consultative opportunity.
[2018-03-16] MEDS ORDERED: PT OWN MED DRAWER 7, Y5N ONE (20:00)
[2018-03-17 06:06] LABS: SERUM IRON SATURATION 13 % (15-55); TOTAL IRON BINDING CAPACITY 331 ug/dL (250-450); UIBC 288 ug/dL (111-343)
--- NOTE | 2018-03-17 08:35 | PN ---
Progress Note, Physician Chief Complaint: AWAKE ALERT DENIES DYSPNEA/CHEST PAIN CT SCANS REVIEWED - Current Medication List Current Medications: Active Medications Bacitracin (Bacitracin -) 1 applic TP BID [facility] Last Admin: 03/16/18 22:15 Dose: Not Given Budesonide/Formoterol Fumarate (Symbicort 160/4.5mcg -) 2 puff IH BID [facility] Last Admin: 03/16/18 22:16 Dose: 2 puff Cefepime HCl (Maxipime 1 Gm Premix Ivpb) 1 gm in 50 mls @ 100 mls/hr IVPB BID [facility]; Protocol Last Admin: 03/16/18 22:15 Dose: 100 mls/hr Iron Sucrose 200 mg/ Sodium (Chloride) 100 mls @ 100 mls/hr IVPB ONCE ONE Stop: 03/17/18 09:59 Losartan Potassium (Cozaar -) 25 mg PO DAILY [facility] Last Admin: 03/16/18 11:03 Dose: 25 mg Metoprolol Succinate (Toprol Xl -) 25 mg PO BID [facility] Last Admin: 03/16/18 22:17 Dose: Not Given Pantoprazole Sodium (Protonix -) 40 mg PO DAILY [facility] Last Admin: 03/16/18 11:03 Dose: 40 mg Spironolactone (Aldactone -) 25 mg PO BID [facility] Last Admin: 03/16/18 22:14 Dose: 25 mg - Objective Vital Signs: Vital Signs Temperature 97.6 F 03/17/18 06:24 Pulse Rate 60 03/17/18 06:24 Respiratory Rate 18 03/17/18 06:24 Blood Pressure 112/52 03/17/18 06:24 O2 Sat by Pulse Oximetry (%) 94 L 03/16/18 21:00 Constitutional: Yes: No Distress Eyes: Yes: WNL HENT: Yes: WNL Neck: Yes: WNL Cardiovascular: Yes: WNL Respiratory: Yes: WNL Gastrointestinal: Yes: WNL Genitourinary: Yes: WNL Musculoskeletal: Yes: Muscle Weakness Extremities: Yes: Deformity, Erythema Edema: Yes Edema: LLE: Trace, RLE: Trace Peripheral Pulses WNL: Yes Integumentary: Yes: Erythema, Venous Stasis Changes Wound/Incision: Yes: Open to air, Dressing Dry and Intact Neurological: Yes: Pre-Existing Deficit ...Motor Strength: LLE, RLE Psychiatric: Yes: WNL Labs: CBC, BMP 03/16/18 06:00 03/16/18 06:00 INR, PTT INR 1.17 (0.83-1.09) H 03/14/18 15:00 Problem List - Problems (1) JE (acute kidney injury) Code(s): N17.9 - ACUTE KIDNEY FAILURE, UNSPECIFIED (2) Cellulitis of right leg Code(s): L03.115 - CELLULITIS OF RIGHT LOWER LIMB (3) Lymphoma Code(s): C85.90 - NON-HODGKIN LYMPHOMA, UNSPECIFIED, UNSPECIFIED SITE (4) Neutropenia Code(s): D70.9 - NEUTROPENIA, UNSPECIFIED (5) Weight loss Code(s): R63.4 - ABNORMAL WEIGHT LOSS (6) Atrial fibrillation Code(s): I48.91 - UNSPECIFIED ATRIAL FIBRILLATION Qualifiers: Atrial fibrillation type: persistent Qualified Code(s): I48.1 - Persistent atrial fibrillation (7) CAD (coronary artery disease) Code(s): I25.10 - ATHSCL HEART DISEASE OF [place] CORONARY ARTERY W/O ANG PCTRS Qualifiers: Coronary Disease-Associated Artery/Lesion type: [place] artery [place] vs. transplanted heart: [place] heart Associated angina: without angina Qualified Code(s): I25.10 - Atherosclerotic heart disease of [place] coronary artery without angina pectoris (8) COPD (chronic obstructive pulmonary disease) Code(s): J44.9 - CHRONIC OBSTRUCTIVE PULMONARY DISEASE, UNSPECIFIED Qualifiers: COPD type: unspecified COPD Qualified Code(s): J44.9 - Chronic obstructive pulmonary disease, unspecified (9) Pulmonary HTN Code(s): I27.20 - PULMONARY HYPERTENSION, UNSPECIFIED Assessment/Plan IV ABX CT SCAN PER ONCOLOGY REVIEWED OOB TO CHAIR LEGS IMPROVING CELLULITIS AWAITING CULTURES DVT PROPHYLAXIS
[2018-03-17] MEDS ORDERED: IRON SUCROSE INJECTION 200 MG in SODIUM CHLORIDE 90 ML IVPB ONE (09:00)
[2018-03-17] MEDS ORDERED: PT OWN MED DRAWER 7, Y5N ONE (09:21)
[2018-03-17] MEDS: CEFEPIME HCL/D5W 1 GM/50 ML BAG IVPB SCH ×2 (09:36→21:31)
[2018-03-17] MEDS: BUDESONIDE/FORMETEROL FUMARATE 160/4.5 mcg INHALER IH SCH ×2 (09:39→21:34)
[2018-03-17] MEDS: BACITRACIN 15 GM TUBE TOPICAL OINTMENT TP SCH ×2 (09:39→21:33)
[2018-03-17] MEDS: PANTOPRAZOLE 40 MG TABLET (FP) PO SCH (09:39)
[2018-03-17] MEDS: LOSARTAN POTASSIUM 25 MG TABLET PO SCH (09:53)
[2018-03-17] MEDS: SPIRONOLACTONE 25 MG TABLET (FP) PO SCH ×2 (09:53→21:32)
[2018-03-17] MEDS: metoPROLOL SUCCINATE 25 MG TAB.SR.24H (FP) PO SCH ×2 (09:53→21:57)
--- NOTE | 2018-03-17 11:12 | PN ---
Progress Note, Physician History of Present Illness: RLE erythema, tenderness, edema and warmth improving, afebrile - Current Medication List Current Medications: Active Medications Bacitracin (Bacitracin -) 1 applic TP BID [facility] Last Admin: 03/17/18 09:39 Dose: 1 applic Budesonide/Formoterol Fumarate (Symbicort 160/4.5mcg -) 2 puff IH BID [facility] Last Admin: 03/17/18 09:39 Dose: 2 puff Cefepime HCl (Maxipime 1 Gm Premix Ivpb) 1 gm in 50 mls @ 100 mls/hr IVPB BID [facility]; Protocol Last Admin: 03/17/18 09:36 Dose: 100 mls/hr Losartan Potassium (Cozaar -) 25 mg PO DAILY [facility] Last Admin: 03/17/18 09:53 Dose: Not Given Metoprolol Succinate (Toprol Xl -) 25 mg PO BID [facility] Last Admin: 03/17/18 09:53 Dose: Not Given Pantoprazole Sodium (Protonix -) 40 mg PO DAILY [facility] Last Admin: 03/17/18 09:39 Dose: 40 mg Spironolactone (Aldactone -) 25 mg PO BID [facility] Last Admin: 03/17/18 09:53 Dose: Not Given - Objective Vital Signs: Vital Signs Temperature 98.3 F 03/17/18 10:34 Pulse Rate 61 03/17/18 10:34 Respiratory Rate 18 03/17/18 10:34 Blood Pressure 121/45 03/17/18 10:34 O2 Sat by Pulse Oximetry (%) 96 03/17/18 09:00 Constitutional: Yes: No Distress, Calm Neck: Yes: Supple Cardiovascular: Yes: Regular Rate and Rhythm Respiratory: Yes: Regular, CTA Bilaterally Gastrointestinal: Yes: Normal Bowel Sounds, Soft Extremities: Yes: Erythema Edema: Yes Edema: RLE: Trace Labs: CBC, BMP 03/16/18 06:00 03/16/18 06:00 INR, PTT INR 1.17 (0.83-1.09) H 03/14/18 15:00 - ....Imaging Cat Scan: Report Reviewed (HCT Negative) Problem List - Problems (1) Cellulitis of right leg Code(s): L03.115 - CELLULITIS OF RIGHT LOWER LIMB (2) Status post Maze operation for atrial fibrillation Code(s): Z98.890 - OTHER SPECIFIED POSTPROCEDURAL STATES; Z86.79 - PERSONAL HISTORY OF OTHER DISEASES OF THE CIRCULATORY SYSTEM (3) Systolic and diastolic CHF, acute on chronic Code(s): I50.43 - ACUTE ON CHRONIC COMBINED SYSTOLIC AND DIASTOLIC HRT FAIL (4) Atrial fibrillation Code(s): I48.91 - UNSPECIFIED ATRIAL FIBRILLATION Qualifiers: Atrial fibrillation type: persistent Qualified Code(s): I48.1 - Persistent atrial fibrillation (5) CAD (coronary artery disease) Code(s): I25.10 - ATHSCL HEART DISEASE OF [place] CORONARY ARTERY W/O ANG PCTRS Qualifiers: Coronary Disease-Associated Artery/Lesion type: [place] artery [place] vs. transplanted heart: [place] heart Associated angina: without angina Qualified Code(s): I25.10 - Atherosclerotic heart disease of [place] coronary artery without angina pectoris (6) COPD (chronic obstructive pulmonary disease) Code(s): J44.9 - CHRONIC OBSTRUCTIVE PULMONARY DISEASE, UNSPECIFIED Qualifiers: COPD type: unspecified COPD Qualified Code(s): J44.9 - Chronic obstructive pulmonary disease, unspecified (7) H/O atrial septal defect repair Code(s): Z98.89 - OTHER SPECIFIED POSTPROCEDURAL STATES * DO NOT USE *; Z87.74 - PERSONAL HISTORY OF CONGENITAL MALFORM OF HEART AND CIRC SYS (8) Hypercholesterolemia Code(s): E78.0 - PURE HYPERCHOLESTEROLEMIA * DO NOT USE * (9) Hypertension Code(s): I10 - ESSENTIAL (PRIMARY) HYPERTENSION Qualifiers: Hypertension type: essential hypertension Qualified Code(s): I10 - Essential (primary) hypertension (10) Pulmonary HTN Code(s): I27.20 - PULMONARY HYPERTENSION, UNSPECIFIED (11) Right bundle branch block Code(s): I45.10 - UNSPECIFIED RIGHT BUNDLE-BRANCH BLOCK Assessment/Plan Echocardiography performed October 28, 2015 revealed normal left ventricular size and systolic function, moderate reduction in right ventricular systolic function , bi-atrial dilatation left atrial measurement 6.0 cm, mitral annular calcification, aortic valve leaflet sclerosis, aortic root dilatation measuring 4.2 cm, mild mitral valve regurgitation, moderate aortic valve regurgitation, mild to moderate tricuspid valve regurgitation with calculated RVSP between 50- 60 mmHg. Right and left cardiac catheterization coronary angiography performed April revealed single vessel obstructive coronary artery disease (90% ostial LAD-D1 lesion) and moderate to severe degree of pulmonary hypertension not responsive to vasodilator therapy, PA pressure of 67 over 30 mmHg. Echocardiography performed October 02, 2013 revealed normal left ventricular size with mild reduction in left ventricular systolic function, abnormal septal motion, right ventricular dilatation and moderate diffuse hypokinesia, bi- atrial dilatation left atrial measurement of 4.3 cm, mitral annular calcification, aortic valve leaflet sclerosis, mild to moderate eccentric mitral valve regurgitation, moderate aortic valve regurgitation, mild to moderate tricuspid valve regurgitation with calculated RVSP between 50-60 mmHg. Carotid Doppler study performed October 25, 2013 revealed mild degree of atherosclerotic plaque bilaterally with no evidence of hemodynamically significant stenosis. Pharmacologic (Dipyridamole) myocardial perfusion imaging study performed July 29, 2010 reveal small size anterior, aaron-basal wall defect compatible with mild ischemia, small size inferior, infero-basal wall defect compatible with diaphragmatic attenuation with normal left ventricular contraction pattern on LV gated analysis with calculated left ventricular ejection fraction of 69%. ASD repair operative report dated July 16, 2008 included patch repair of ASD, bi-atrial MAZE procedure and ligation of left atrial appendage. Assessment: 1. Right lower extremity swelling, erythema, and edema c/w with cellulitis, ruled out for DVT 2. Diastolic/systolic left ventricular dysfunction with chronic class I-II [place] [employer] classification left ventricular failure, euvolemic 3. Coronary artery disease abnormal pharmacologic (Dipyridamole) myocardial perfusion imaging study single vessel obstructive coronary artery disease angina pectoris, stable. 4. Persistent atrial fibrillation/atrial flutter post cryo-maze [id number] score of 4 currently off of anticoagulation therapy/Coumadin related to recurrent gastrointestinal bleed (not a candidate for left atrial appendage closure device considering prior history of left atrial appendage ligation performed as July 16, 2008). 5. Paroxysmal atypical atrial tachycardia. 6. Atrial septal defect post-surgical repair. 7. Mitral valve regurgitation mild in severity of no clinical significance. 8. Aortic valve regurgitation moderate in severity. 9. Tricuspid valve regurgitation mild to moderate in severity with RVSP between 50-60 mmHg on echocardiography performed October 28, 2015 and pulmonary artery pressure of 67/30 mmHg on right heart cardiac catheterization April, not responsive to vasodilator therapy. 10. Hypercholesterolemia. 11. Carotid stenosis mild in severity, asymptomatic. 12. Acute on CKD 13. History of chronic obstructive pulmonary disease/reactive airway disease. 14. History of recurrent gastro-intestinal bleed. 15. History of degenerative joint disease. 16. H/o B-cell lymphoma with leukopenia PLAN: 1. Empiric abx course per C&S, contaminant scn in one bottle 2. Continue losartan 25 qd, Toprol XL 25 bid, Aldactone 25 bid 3. Heme evaluation including Flow cytometry, CT-chest , abdomen, pelvis, Consider bone marrow, Check Fe++ studies for anemia.
--- NOTE | 2018-03-17 15:56 | PN ---
Progress Note (short form) - Note Progress Note: PULMONARY CELLULITES RESOLVING REMAINS ON IV ANTIBIOTICS LOW GRADE B CELL LYMPHOMA SMOLDERING SUSPECT IMPROVEMENT IN WBC'S ONCE INFECTION IS FULLY TREATED VSS/AFEBRILE ANICTERIC MILD RESIDUAL WOOTEN'S PALSY CLEAR BUT DISTANT BREATH SOUNDS S1S2 BS+ LESS ERYTHEMA RIGHT LOWER EXT LABS/MEDS/NOTES/MICRO/IMAGES NOTED CONTINUE CURRENT TREATMENT PRIMARY TEAM PROGRESSING NICELY Felix ELIZABETH MD Problem List - Problems (1) Failure to thrive in adult Code(s): R62.7 - ADULT FAILURE TO THRIVE (2) Severe anemia Code(s): D64.9 - ANEMIA, UNSPECIFIED (3) Status post Maze operation for atrial fibrillation Code(s): Z98.890 - OTHER SPECIFIED POSTPROCEDURAL STATES; Z86.79 - PERSONAL HISTORY OF OTHER DISEASES OF THE CIRCULATORY SYSTEM (4) Status post balloon dilatation of esophageal stricture Code(s): Z98.890 - OTHER SPECIFIED POSTPROCEDURAL STATES (5) Systolic and diastolic CHF, acute on chronic Code(s): I50.43 - ACUTE ON CHRONIC COMBINED SYSTOLIC AND DIASTOLIC HRT FAIL (6) Atrial fibrillation Code(s): I48.91 - UNSPECIFIED ATRIAL FIBRILLATION Qualifiers: Atrial fibrillation type: persistent Qualified Code(s): I48.1 - Persistent atrial fibrillation (7) B-cell lymphoma Code(s): C85.10 - UNSPECIFIED B-CELL LYMPHOMA, UNSPECIFIED SITE Qualifiers: B-cell lymphoma type: unspecified B-cell (8) CAD (coronary artery disease) Code(s): I25.10 - ATHSCL HEART DISEASE OF [place] CORONARY ARTERY W/O ANG PCTRS Qualifiers: Coronary Disease-Associated Artery/Lesion type: [place] artery [place] vs. transplanted heart: [place] heart Associated angina: without angina Qualified Code(s): I25.10 - Atherosclerotic heart disease of [place] coronary artery without angina pectoris (9) COPD (chronic obstructive pulmonary disease) Code(s): J44.9 - CHRONIC OBSTRUCTIVE PULMONARY DISEASE, UNSPECIFIED Qualifiers: COPD type: unspecified COPD Qualified Code(s): J44.9 - Chronic obstructive pulmonary disease, unspecified (10) H/O atrial septal defect repair Code(s): Z98.89 - OTHER SPECIFIED POSTPROCEDURAL STATES * DO NOT USE *; Z87.74 - PERSONAL HISTORY OF CONGENITAL MALFORM OF HEART AND CIRC SYS (11) History of melena Code(s): Z87.19 - PERSONAL HISTORY OF OTHER DISEASES OF THE DIGESTIVE SYSTEM (12) Hypercholesterolemia Code(s): E78.0 - PURE HYPERCHOLESTEROLEMIA * DO NOT USE * (13) Pulmonary HTN Code(s): I27.20 - PULMONARY HYPERTENSION, UNSPECIFIED (14) Reactive airway disease Code(s): J45.909 - UNSPECIFIED ASTHMA, UNCOMPLICATED Qualifiers: Asthma severity: unspecified severity Asthma complication type: uncomplicated Qualified Code(s): J45.909 - Unspecified asthma, uncomplicated (15) Shortness of breath on exertion Code(s): R06.02 - SHORTNESS OF BREATH
--- NOTE | 2018-03-17 16:40 | PN ---
Progress Note (short form) - Note Progress Note: leg improving Vital Signs Period Temp Pulse Resp BP Sys/Brian Pulse Ox Last 24 Hr 97.6 F-98.3 F 57-67 18-18 106-125/47-52 94-96 cor-rrr llungs clear abd soft,nt ext less erythema of the RLE CBC, BMP 03/16/18 06:00 03/16/18 06:00 Microbiology 03/14/18 14:06 Blood - Peripheral Venous Blood Culture - Preliminary NO GROWTH OBTAINED AFTER 72 HOURS, INCUBATION TO CONTINUE FOR 2 DAYS. 03/14/18 14:06 Blood - Peripheral Venous Blood Culture - Preliminary NO GROWTH OBTAINED AFTER 72 HOURS, INCUBATION TO CONTINUE FOR 2 DAYS. 03/14/18 17:18 Blood - Peripheral Venous Blood Culture - Final Staphylococcus Epidermidis 03/14/18 17:18 Blood - Peripheral Venous Blood Culture - Preliminary NO GROWTH OBTAINED AFTER 48 HOURS, INCUBATION TO CONTINUE FOR 3 DAYS. imp/reccd extensive cellulitis RLE-improved neutropenia bacteremia lymphoma blood culture- contaminant scn one bottle continue cefepime Problem List - Problems (1) Cellulitis of right leg Code(s): L03.115 - CELLULITIS OF RIGHT LOWER LIMB (2) Neutropenia Code(s): D70.9 - NEUTROPENIA, UNSPECIFIED (3) Lymphoma Code(s): C85.90 - NON-HODGKIN LYMPHOMA, UNSPECIFIED, UNSPECIFIED SITE (4) JE (acute kidney injury) Code(s): N17.9 - ACUTE KIDNEY FAILURE, UNSPECIFIED
--- NOTE | 2018-03-17 23:13 | PN ---
Progress Note (short form) - Note Progress Note: Patient seen and examined Denies any complaints Last Vital Signs Temp Pulse Resp BP Pulse Ox 98.2 F 70 18 128/56 96 03/18/18 05:53 03/18/18 05:53 03/18/18 05:53 03/18/18 05:53 03/17/18 21:00 Cor: RSR, No murmurs, No gallops Lungs: Clear to P&A Abd: Soft, Normal bowel sounds, No organomegaly Ext:No significant edema small, nontender, inguinal adenopathy LAbs/MEds reviewed A/P 88 y/o patient with CAD, CHF, COPD, CKD, afib, not on coumadin due to recurrent , gi bleed admitted with lower extremity cellulitis Wt. 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 marginal zone and granulocytic hypoplasia CT scans w/o conrast currently show mild retroperitoneal and small rt. iliac and rt. inguinal adenopathy. await repeat flow, Leukopenia-- ? lymphoprolifertive process with granulocytic hypoplasia. recheck B12/folate/TSH Worsened with ongoing infection monitor
[2018-03-18 07:39] LABS: BASO % 0.5 % (0-2.0); EOS % 5.6 % (0-4.5); HEMATOCRIT 29.7 % (35.4-49); HEMOGLOBIN 9.1 GM/dL (11.7-16.9); LYMPH % 18.7 % (8-40); MCHC 30.8 g/dl (32.0-35.9); MEAN CELL VOLUME 78.1 fl (80-96); MEAN PLT VOLUME 7.3 fl (7.5-11.1); MONO % 18.4 % (3.8-10.2); NEUT % 56.8 % (42.8-82.8); PLATELET COUNT 194 K/MM3 (134-434); RDW 20.4 % (11.9-15.9); WHITE BLOOD COUNT 2.4 K/mm3 (4.0-10.0)
[2018-03-18 08:03] LABS: ALBUMIN 2.6 g/dl (3.4-5.0); ALK PHOS 94 U/L (45-117); ANION GAP 8 MMOL/L (8-16); BILIRUBIN,TOTAL 0.6 mg/dL (0.2-1.0); BLOOD UREA NITROGEN 21 mg/dL (7-18); CALCIUM 8.7 mg/dL (8.5-10.1); CHLORIDE 98 mmol/L (98-107); CO2 31 mmol/L (21-32); GLUCOSE,RANDOM 97 mg/dL (74-106); MAGNESIUM 2.4 mg/dL (1.8-2.4); SGOT/AST 15 U/L (15-37); SGPT/ALT 11 U/L (12-78); SODIUM 137 mmol/L (136-145); TOT PROT 7.7 g/dl (6.4-8.2)
[2018-03-18] MEDS: CEFEPIME HCL/D5W 1 GM/50 ML BAG IVPB SCH ×2 (09:26→21:33)
[2018-03-18] MEDS: metoPROLOL SUCCINATE 25 MG TAB.SR.24H (FP) PO SCH ×2 (09:27→21:34)
[2018-03-18] MEDS: SPIRONOLACTONE 25 MG TABLET (FP) PO SCH ×2 (09:27→21:34)
[2018-03-18] MEDS: LOSARTAN POTASSIUM 25 MG TABLET PO SCH (09:27)
[2018-03-18] MEDS: PANTOPRAZOLE 40 MG TABLET (FP) PO SCH (09:27)
[2018-03-18] MEDS: BUDESONIDE/FORMETEROL FUMARATE 160/4.5 mcg INHALER IH SCH ×2 (09:28→21:34)
[2018-03-18] MEDS: BACITRACIN 15 GM TUBE TOPICAL OINTMENT TP SCH ×2 (09:28→21:34)
--- NOTE | 2018-03-18 10:16 | PN ---
Progress Note (short form) - Note Progress Note: leg improving Vital Signs Period Temp Pulse Resp BP Sys/Brian Pulse Ox Last 24 Hr 98.1 F-98.3 F 57-70 18-18 118-128/51-72 96 feels well today cor-rrr lungs decresed bs at bases abd soft,nt ext less erythema of the leg CBC, BMP 03/18/18 06:00 03/18/18 06:00 Microbiology 03/14/18 17:18 Blood - Peripheral Venous Blood Culture - Preliminary NO GROWTH OBTAINED AFTER 72 HOURS, INCUBATION TO CONTINUE FOR 2 DAYS. 03/14/18 14:06 Blood - Peripheral Venous Blood Culture - Preliminary NO GROWTH OBTAINED AFTER 72 HOURS, INCUBATION TO CONTINUE FOR 2 DAYS. 03/14/18 14:06 Blood - Peripheral Venous Blood Culture - Preliminary NO GROWTH OBTAINED AFTER 72 HOURS, INCUBATION TO CONTINUE FOR 2 DAYS. 03/14/18 17:18 Blood - Peripheral Venous Blood Culture - Final Staphylococcus Epidermidis ct scans noted imp/reccd extensive cellulitis RLE-improved neutropenia bacteremia lymphoma blood culture- contaminant scn one bottle continue cefepime leukopenia improved hopefully po in next 24-4 hours and home keflex 500 tid d/w dr ayala Problem List - Problems (1) Cellulitis of right leg Code(s): L03.115 - CELLULITIS OF RIGHT LOWER LIMB (2) Neutropenia Code(s): D70.9 - NEUTROPENIA, UNSPECIFIED (3) Lymphoma Code(s): C85.90 - NON-HODGKIN LYMPHOMA, UNSPECIFIED, UNSPECIFIED SITE (4) JE (acute kidney injury) Code(s): N17.9 - ACUTE KIDNEY FAILURE, UNSPECIFIED
--- NOTE | 2018-03-18 12:21 | PN ---
Progress Note (short form) - Note Progress Note: PULMONARY CELLULITES RESOLVING REMAINS ON IV ANTIBIOTICS LOW GRADE B CELL LYMPHOMA IMPROVED VSS/AFEBRILE ANICTERIC MILD RESIDUAL [place] CLEAR BUT DISTANT BREATH SOUNDS S1S2 BS+ LESS ERYTHEMA RIGHT LOWER EXT LABS/MEDS/NOTES/MICRO/IMAGES NOTED CONTINUE CURRENT TREATMENT PRIMARY TEAM PROGRESSING NICELY Felix ELIZABETH MD Problem List - Problems (1) Failure to thrive in adult Code(s): R62.7 - ADULT FAILURE TO THRIVE (2) Severe anemia Code(s): D64.9 - ANEMIA, UNSPECIFIED (3) Status post Maze operation for atrial fibrillation Code(s): Z98.890 - OTHER SPECIFIED POSTPROCEDURAL STATES; Z86.79 - PERSONAL HISTORY OF OTHER DISEASES OF THE CIRCULATORY SYSTEM (4) Status post balloon dilatation of esophageal stricture Code(s): Z98.890 - OTHER SPECIFIED POSTPROCEDURAL STATES (5) Systolic and diastolic CHF, acute on chronic Code(s): I50.43 - ACUTE ON CHRONIC COMBINED SYSTOLIC AND DIASTOLIC HRT FAIL (6) Atrial fibrillation Code(s): I48.91 - UNSPECIFIED ATRIAL FIBRILLATION Qualifiers: Atrial fibrillation type: persistent Qualified Code(s): I48.1 - Persistent atrial fibrillation (7) B-cell lymphoma Code(s): C85.10 - UNSPECIFIED B-CELL LYMPHOMA, UNSPECIFIED SITE Qualifiers: B-cell lymphoma type: unspecified B-cell (8) CAD (coronary artery disease) Code(s): I25.10 - ATHSCL HEART DISEASE OF [place] CORONARY ARTERY W/O ANG PCTRS Qualifiers: Coronary Disease-Associated Artery/Lesion type: [place] artery [place] vs. transplanted heart: [place] heart Associated angina: without angina Qualified Code(s): I25.10 - Atherosclerotic heart disease of [place] coronary artery without angina pectoris (9) COPD (chronic obstructive pulmonary disease) Code(s): J44.9 - CHRONIC OBSTRUCTIVE PULMONARY DISEASE, UNSPECIFIED Qualifiers: COPD type: unspecified COPD Qualified Code(s): J44.9 - Chronic obstructive pulmonary disease, unspecified (10) H/O atrial septal defect repair Code(s): Z98.89 - OTHER SPECIFIED POSTPROCEDURAL STATES * DO NOT USE *; Z87.74 - PERSONAL HISTORY OF CONGENITAL MALFORM OF HEART AND CIRC SYS (11) History of melena Code(s): Z87.19 - PERSONAL HISTORY OF OTHER DISEASES OF THE DIGESTIVE SYSTEM (12) Hypercholesterolemia Code(s): E78.0 - PURE HYPERCHOLESTEROLEMIA * DO NOT USE * (13) Pulmonary HTN Code(s): I27.20 - PULMONARY HYPERTENSION, UNSPECIFIED (14) Reactive airway disease Code(s): J45.909 - UNSPECIFIED ASTHMA, UNCOMPLICATED Qualifiers: Asthma severity: unspecified severity Asthma complication type: uncomplicated Qualified Code(s): J45.909 - Unspecified asthma, uncomplicated (15) Shortness of breath on exertion Code(s): R06.02 - SHORTNESS OF BREATH
--- NOTE | 2018-03-18 12:41 | PN ---
Progress Note, Physician Chief Complaint: Events noted Not in distress History of Present Illness: Patient was seen and examined. Awake and alert. Chart was reviewed Denies chest pain, SOB or palpitations - Current Medication List Current Medications: Active Medications Bacitracin (Bacitracin -) 1 applic TP BID [facility] Last Admin: 03/18/18 09:28 Dose: 1 applic Budesonide/Formoterol Fumarate (Symbicort 160/4.5mcg -) 2 puff IH BID [facility] Last Admin: 03/18/18 09:28 Dose: 2 puff Cefepime HCl (Maxipime 1 Gm Premix Ivpb) 1 gm in 50 mls @ 100 mls/hr IVPB BID [facility]; Protocol Last Admin: 03/18/18 09:26 Dose: 100 mls/hr Losartan Potassium (Cozaar -) 25 mg PO DAILY [facility] Last Admin: 03/18/18 09:27 Dose: 25 mg Metoprolol Succinate (Toprol Xl -) 25 mg PO BID [facility] Last Admin: 03/18/18 09:27 Dose: 25 mg Pantoprazole Sodium (Protonix -) 40 mg PO DAILY [facility] Last Admin: 03/18/18 09:27 Dose: 40 mg Spironolactone (Aldactone -) 25 mg PO BID [facility] Last Admin: 03/18/18 09:27 Dose: 25 mg - Objective Vital Signs: Vital Signs Temperature 97.6 F 03/18/18 09:00 Pulse Rate 74 03/18/18 09:00 Respiratory Rate 18 03/18/18 09:00 Blood Pressure 126/57 03/18/18 09:00 O2 Sat by Pulse Oximetry (%) 98 03/18/18 09:00 Neck: Yes: Supple Cardiovascular: Yes: Regular Rate and Rhythm, S1, S2 Respiratory: Yes: CTA Bilaterally Gastrointestinal: Yes: Normal Bowel Sounds, Soft. No: Tenderness Edema: Yes Edema: LLE: Trace, RLE: Trace Labs: CBC, BMP 03/18/18 06:00 03/18/18 06:00 Problem List - Problems (1) Cellulitis of right leg Code(s): L03.115 - CELLULITIS OF RIGHT LOWER LIMB (2) Lymphoma Code(s): C85.90 - NON-HODGKIN LYMPHOMA, UNSPECIFIED, UNSPECIFIED SITE (3) Abnormal liver function tests Code(s): R79.89 - OTHER SPECIFIED ABNORMAL FINDINGS OF BLOOD CHEMISTRY (4) Achalasia of esophagus Code(s): K22.0 - ACHALASIA OF CARDIA (5) Chronic respiratory failure with hypoxia and hypercapnia Code(s): J96.11 - CHRONIC RESPIRATORY FAILURE WITH HYPOXIA; J96.12 - CHRONIC RESPIRATORY FAILURE WITH HYPERCAPNIA (6) GI bleed Code(s): K92.2 - GASTROINTESTINAL HEMORRHAGE, UNSPECIFIED Qualifiers: GI bleed type/associated pathology: diverticulosis Qualified Code(s): K57.91 - Diverticulosis of intestine, part unspecified, without perforation or abscess with bleeding (7) Status post Maze operation for atrial fibrillation Code(s): Z98.890 - OTHER SPECIFIED POSTPROCEDURAL STATES; Z86.79 - PERSONAL HISTORY OF OTHER DISEASES OF THE CIRCULATORY SYSTEM (8) Status post balloon dilatation of esophageal stricture Code(s): Z98.890 - OTHER SPECIFIED POSTPROCEDURAL STATES (9) Systolic and diastolic CHF, acute on chronic Code(s): I50.43 - ACUTE ON CHRONIC COMBINED SYSTOLIC AND DIASTOLIC HRT FAIL (10) Anemia Code(s): D64.9 - ANEMIA, UNSPECIFIED Qualifiers: Anemia type: iron deficiency (11) Atrial fibrillation Code(s): I48.91 - UNSPECIFIED ATRIAL FIBRILLATION Qualifiers: Atrial fibrillation type: persistent Qualified Code(s): I48.1 - Persistent atrial fibrillation (12) B-cell lymphoma Code(s): C85.10 - UNSPECIFIED B-CELL LYMPHOMA, UNSPECIFIED SITE Qualifiers: B-cell lymphoma type: unspecified B-cell (13) CAD (coronary artery disease) Code(s): I25.10 - ATHSCL HEART DISEASE OF [place] CORONARY ARTERY W/O ANG PCTRS Qualifiers: Coronary Disease-Associated Artery/Lesion type: [place] artery [place] vs. transplanted heart: [place] heart Associated angina: without angina Qualified Code(s): I25.10 - Atherosclerotic heart disease of [place] coronary artery without angina pectoris (14) COPD (chronic obstructive pulmonary disease) Code(s): J44.9 - CHRONIC OBSTRUCTIVE PULMONARY DISEASE, UNSPECIFIED Qualifiers: COPD type: unspecified COPD Qualified Code(s): J44.9 - Chronic obstructive pulmonary disease, unspecified (15) H/O atrial septal defect repair Code(s): Z98.89 - OTHER SPECIFIED POSTPROCEDURAL STATES * DO NOT USE *; Z87.74 - PERSONAL HISTORY OF CONGENITAL MALFORM OF HEART AND CIRC SYS (16) Hypercholesterolemia Code(s): E78.0 - PURE HYPERCHOLESTEROLEMIA * DO NOT USE * (17) Hypertension Code(s): I10 - ESSENTIAL (PRIMARY) HYPERTENSION Qualifiers: Hypertension type: essential hypertension Qualified Code(s): I10 - Essential (primary) hypertension (18) Pulmonary HTN Code(s): I27.20 - PULMONARY HYPERTENSION, UNSPECIFIED Assessment/Plan 1. Right lower extremity swelling, erythema, and edema - cellulitis 2. Diastolic/systolic left ventricular dysfunction with chronic class I-II [place] [employer] classification left ventricular failure, euvolemic 3. Coronary artery disease abnormal pharmacologic (Dipyridamole) myocardial perfusion imaging study, angina 4. Persistent atrial fibrillation/atrial flutter post cryo-maze [id number] score of 4 currently off of anticoagulation therapy related to recurrent gastrointestinal bleed 5. Paroxysmal atypical atrial tachycardia. 6. Atrial septal defect post-surgical repair. 7. Mitral valve regurgitation (mild) 8. Aortic valve regurgitation (moderate) 9. Tricuspid valve regurgitation (mild to moderate) 10. Hypercholesterolemia. 11. Carotid stenosis 12. Acute on CKD 13. History of chronic obstructive pulmonary disease/reactive airway disease. 14. History of recurrent gastro-intestinal bleed. 15. History of degenerative joint disease. 16. B-cell lymphoma with leukopenia PLAN: 1. Empiric antibiotic course 2. Continue Losartan 25 qd, Toprol XL 25 bid and Aldactone 25 bid 3. Hematology evaluation Emile Leong MD
--- NOTE | 2018-03-18 12:54 | PN ---
Progress Note, Physician History of Present Illness: FEELS BETTER - Current Medication List Current Medications: Active Medications Bacitracin (Bacitracin -) 1 applic TP BID [facility] Last Admin: 03/18/18 09:28 Dose: 1 applic Budesonide/Formoterol Fumarate (Symbicort 160/4.5mcg -) 2 puff IH BID [facility] Last Admin: 03/18/18 09:28 Dose: 2 puff Cefepime HCl (Maxipime 1 Gm Premix Ivpb) 1 gm in 50 mls @ 100 mls/hr IVPB BID [facility]; Protocol Last Admin: 03/18/18 09:26 Dose: 100 mls/hr Losartan Potassium (Cozaar -) 25 mg PO DAILY [facility] Last Admin: 03/18/18 09:27 Dose: 25 mg Metoprolol Succinate (Toprol Xl -) 25 mg PO BID [facility] Last Admin: 03/18/18 09:27 Dose: 25 mg Pantoprazole Sodium (Protonix -) 40 mg PO DAILY [facility] Last Admin: 03/18/18 09:27 Dose: 40 mg Spironolactone (Aldactone -) 25 mg PO BID [facility] Last Admin: 03/18/18 09:27 Dose: 25 mg - Objective Vital Signs: Vital Signs Temperature 97.6 F 03/18/18 09:00 Pulse Rate 74 03/18/18 09:00 Respiratory Rate 18 03/18/18 09:00 Blood Pressure 126/57 03/18/18 09:00 O2 Sat by Pulse Oximetry (%) 98 03/18/18 09:00 Cardiovascular: Yes: Regular Rate and Rhythm Respiratory: Yes: Regular, CTA Bilaterally Gastrointestinal: Yes: Normal Bowel Sounds, Soft Extremities: Yes: Other (improved) Labs: CBC, BMP 03/18/18 06:00 03/18/18 06:00 INR, PTT INR 1.17 (0.83-1.09) H 03/14/18 15:00 Problem List - Problems (1) Cellulitis of right leg Assessment/Plan: IV ABX x 48 hrs ID CONSULT FOLLOW LABS AND CULTURES DUPLEX NEG DVT Code(s): L03.115 - CELLULITIS OF RIGHT LOWER LIMB (2) Weight loss Assessment/Plan: -ETIOLOGY TO BE DETERMINED -ONCOLOGY CONSULT -CT SCAN--Small ln--no significant abn Code(s): R63.4 - ABNORMAL WEIGHT LOSS (3) Lymphoma Assessment/Plan: -lOW GRADE RECENTLY DX -ONCOLOGY CONSULT NOTED Laboratory Tests 03/14/18 03/15/18 03/16/18 16:15 06:00 06:00 WBC 2.3 L 1.8 L* 1.6 L* Hgb 9.5 L 03/18/18 06:00 WBC 2.4 L Hgb 9.1 L Code(s): C85.90 - NON-HODGKIN LYMPHOMA, UNSPECIFIED, UNSPECIFIED SITE (4) Atrial fibrillation Assessment/Plan: -AC ON HOLD DUE TO H/O GI BLEED -CARDIO ON BOARD Code(s): I48.91 - UNSPECIFIED ATRIAL FIBRILLATION Qualifiers: Atrial fibrillation type: persistent Qualified Code(s): I48.1 - Persistent atrial fibrillation (5) JE (acute kidney injury) Assessment/Plan: -ON IVF -MONITOR LABS Code(s): N17.9 - ACUTE KIDNEY FAILURE, UNSPECIFIED (6) Neutropenia Assessment/Plan: -PER ONCOLOGY -IMPROVED Code(s): D70.9 - NEUTROPENIA, UNSPECIFIED
--- NOTE | 2018-03-18 13:10 | PN ---
Progress Note (short form) - Note Progress Note: Patient seen and examined Denies any complaints Vital Signs Period Temp Pulse Resp BP Sys/Brian Pulse Ox Last 24 Hr 97.6 F-98.3 F 57-74 18-18 118-128/51-72 96-98 Cor: RSR, No murmurs, No gallops Lungs: Clear to P&A Abd: Soft, Normal bowel sounds, No organomegaly Ext:No significant edema LAbs/MEds reviewed A/P 88 y/o patient with CAD, CHF, COPD, CKD, afib, not on coumadin due to recurrent , gi bleed admitted with lower extremity cellulitis Wt. 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 CT scans w/o conrast currently show mild retroperitoneal and small rt. iliac and rt. inguinal adenopathy. Pending SPEP, Quant Ig, SFLC, serum viscosity
[2018-03-19 08:41] LABS: URIC ACID 4.7 mg/dL (2.6-7.2)
[2018-03-19] MEDS: CEFEPIME HCL/D5W 1 GM/50 ML BAG IVPB SCH ×2 (09:54→22:40)
[2018-03-19] MEDS: PANTOPRAZOLE 40 MG TABLET (FP) PO SCH (09:54)
[2018-03-19] MEDS: BACITRACIN 15 GM TUBE TOPICAL OINTMENT TP SCH ×2 (09:54→22:40)
[2018-03-19] MEDS: BUDESONIDE/FORMETEROL FUMARATE 160/4.5 mcg INHALER IH SCH ×2 (09:55→22:40)
[2018-03-19] MEDS: SPIRONOLACTONE 25 MG TABLET (FP) PO SCH ×3 (09:55→22:40)
[2018-03-19] MEDS: LOSARTAN POTASSIUM 25 MG TABLET PO SCH (09:55)
[2018-03-19] MEDS: metoPROLOL SUCCINATE 25 MG TAB.SR.24H (FP) PO SCH ×3 (09:55→22:40)
--- NOTE | 2018-03-19 10:52 | PN ---
Progress Note, Physician Chief Complaint: Events noted Not in distress History of Present Illness: Patient was seen and examined. Awake and alert. Chart was reviewed Denies chest pain, SOB or palpitations - Current Medication List Current Medications: Active Medications Bacitracin (Bacitracin -) 1 applic TP BID [facility] Last Admin: 03/19/18 09:54 Dose: 1 applic Budesonide/Formoterol Fumarate (Symbicort 160/4.5mcg -) 2 puff IH BID [facility] Last Admin: 03/19/18 09:55 Dose: 2 puff Cefepime HCl (Maxipime 1 Gm Premix Ivpb) 1 gm in 50 mls @ 100 mls/hr IVPB BID [facility]; Protocol Last Admin: 03/19/18 09:54 Dose: 100 mls/hr Losartan Potassium (Cozaar -) 25 mg PO DAILY [facility] Last Admin: 03/19/18 09:55 Dose: Not Given Metoprolol Succinate (Toprol Xl -) 25 mg PO BID [facility] Last Admin: 03/19/18 10:06 Dose: 25 mg Pantoprazole Sodium (Protonix -) 40 mg PO DAILY [facility] Last Admin: 03/19/18 09:54 Dose: 40 mg Spironolactone (Aldactone -) 25 mg PO BID [facility] Last Admin: 03/19/18 10:07 Dose: 25 mg - Objective Vital Signs: Vital Signs Temperature 97.8 F 03/19/18 10:02 Pulse Rate 59 L 03/19/18 10:02 Respiratory Rate 18 03/19/18 10:02 Blood Pressure 106/41 03/19/18 10:02 O2 Sat by Pulse Oximetry (%) 98 03/19/18 09:00 Neck: Yes: Supple Cardiovascular: Yes: Regular Rate and Rhythm, S1, S2 Respiratory: Yes: CTA Bilaterally Gastrointestinal: Yes: Normal Bowel Sounds, Soft. No: Tenderness Extremities: Yes: Erythema Edema: Yes Edema: LLE: Trace, RLE: Trace Labs: CBC, BMP 03/18/18 06:00 03/18/18 06:00 Problem List - Problems (1) Cellulitis of right leg Code(s): L03.115 - CELLULITIS OF RIGHT LOWER LIMB (2) Lymphoma Code(s): C85.90 - NON-HODGKIN LYMPHOMA, UNSPECIFIED, UNSPECIFIED SITE (3) Abnormal liver function tests Code(s): R79.89 - OTHER SPECIFIED ABNORMAL FINDINGS OF BLOOD CHEMISTRY (4) Achalasia of esophagus Code(s): K22.0 - ACHALASIA OF CARDIA (5) Chronic respiratory failure with hypoxia and hypercapnia Code(s): J96.11 - CHRONIC RESPIRATORY FAILURE WITH HYPOXIA; J96.12 - CHRONIC RESPIRATORY FAILURE WITH HYPERCAPNIA (6) GI bleed Code(s): K92.2 - GASTROINTESTINAL HEMORRHAGE, UNSPECIFIED Qualifiers: GI bleed type/associated pathology: diverticulosis Qualified Code(s): K57.91 - Diverticulosis of intestine, part unspecified, without perforation or abscess with bleeding (7) Status post Maze operation for atrial fibrillation Code(s): Z98.890 - OTHER SPECIFIED POSTPROCEDURAL STATES; Z86.79 - PERSONAL HISTORY OF OTHER DISEASES OF THE CIRCULATORY SYSTEM (8) Status post balloon dilatation of esophageal stricture Code(s): Z98.890 - OTHER SPECIFIED POSTPROCEDURAL STATES (9) Systolic and diastolic CHF, acute on chronic Code(s): I50.43 - ACUTE ON CHRONIC COMBINED SYSTOLIC AND DIASTOLIC HRT FAIL (10) Anemia Code(s): D64.9 - ANEMIA, UNSPECIFIED Qualifiers: Anemia type: iron deficiency (11) Atrial fibrillation Code(s): I48.91 - UNSPECIFIED ATRIAL FIBRILLATION Qualifiers: Atrial fibrillation type: persistent Qualified Code(s): I48.1 - Persistent atrial fibrillation (12) B-cell lymphoma Code(s): C85.10 - UNSPECIFIED B-CELL LYMPHOMA, UNSPECIFIED SITE Qualifiers: B-cell lymphoma type: unspecified B-cell (13) CAD (coronary artery disease) Code(s): I25.10 - ATHSCL HEART DISEASE OF [place] CORONARY ARTERY W/O ANG PCTRS Qualifiers: Coronary Disease-Associated Artery/Lesion type: [place] artery [place] vs. transplanted heart: [place] heart Associated angina: without angina Qualified Code(s): I25.10 - Atherosclerotic heart disease of [place] coronary artery without angina pectoris (14) COPD (chronic obstructive pulmonary disease) Code(s): J44.9 - CHRONIC OBSTRUCTIVE PULMONARY DISEASE, UNSPECIFIED Qualifiers: COPD type: unspecified COPD Qualified Code(s): J44.9 - Chronic obstructive pulmonary disease, unspecified (15) H/O atrial septal defect repair Code(s): Z98.89 - OTHER SPECIFIED POSTPROCEDURAL STATES * DO NOT USE *; Z87.74 - PERSONAL HISTORY OF CONGENITAL MALFORM OF HEART AND CIRC SYS (16) Hypercholesterolemia Code(s): E78.0 - PURE HYPERCHOLESTEROLEMIA * DO NOT USE * (17) Hypertension Code(s): I10 - ESSENTIAL (PRIMARY) HYPERTENSION Qualifiers: Hypertension type: essential hypertension Qualified Code(s): I10 - Essential (primary) hypertension (18) Pulmonary HTN Code(s): I27.20 - PULMONARY HYPERTENSION, UNSPECIFIED Assessment/Plan 1. Right lower extremity swelling, erythema, and edema - cellulitis 2. Diastolic/systolic left ventricular dysfunction with chronic class I-II [place] Heart [employer] classification left ventricular failure, euvolemic 3. Coronary artery disease abnormal pharmacologic (Dipyridamole) myocardial perfusion imaging study, angina 4. Persistent atrial fibrillation/atrial flutter post cryo-maze [id number] score of 4 currently off of anticoagulation therapy related to recurrent gastrointestinal bleed 5. Paroxysmal atypical atrial tachycardia. 6. Atrial septal defect post-surgical repair. 7. Mitral valve regurgitation (mild) 8. Aortic valve regurgitation (moderate) 9. Tricuspid valve regurgitation (mild to moderate) 10. Hypercholesterolemia. 11. Carotid stenosis 12. Acute on CKD 13. History of chronic obstructive pulmonary disease/reactive airway disease. 14. History of recurrent gastro-intestinal bleed. 15. History of degenerative joint disease. 16. B-cell lymphoma with leukopenia PLAN: 1. Empiric antibiotic course 2. Continue Losartan 25 qd, Toprol XL 25 bid and Aldactone 25 bid 3. Hematology input to follow Emile Leong MD
--- NOTE | 2018-03-19 12:28 | PN ---
Progress Note (short form) - Note Progress Note: HEMATOLOGY CONSULT NOTE : Patient seen and examined Denies any complaints eating lunch he is awaiting discharge tomorrow Vital Signs Period Temp Pulse Resp BP Sys/Brian Pulse Ox Last 24 Hr 97.6 F-98.3 F 57-74 18-18 118-128/51-72 96-98 Labs/Meds reviewed A/P 88 y/o patient with CAD, CHF, COPD, CKD, afib, not on coumadin due to recurrent , gi bleed admitted with lower extremity cellulitis Wt. 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 CT scans w/o contrast currently show mild retroperitoneal and small rt. iliac and rt. inguinal adenopathy. Pending SPEP, Quant Ig, SFLC, serum viscosity
--- NOTE | 2018-03-19 12:45 | PN ---
Progress Note (short form) - Note Progress Note: PULMONARY CELLULITES RESOLVING REMAINS ON IV ANTIBIOTICS LOW GRADE B CELL LYMPHOMA IMPROVED VSS/AFEBRILE ANICTERIC MILD RESIDUAL [place] CLEAR BUT DISTANT BREATH SOUNDS S1S2 BS+ LESS ERYTHEMA RIGHT LOWER EXT LABS/MEDS/NOTES/MICRO/IMAGES NOTED CONTINUE CURRENT TREATMENT PRIMARY TEAM PROGRESSING NICELY HOPEFULLY DISCHARGE IN AM Felix ELIZABETH MD Problem List - Problems (1) Failure to thrive in adult Code(s): R62.7 - ADULT FAILURE TO THRIVE (2) Severe anemia Code(s): D64.9 - ANEMIA, UNSPECIFIED (3) Status post Maze operation for atrial fibrillation Code(s): Z98.890 - OTHER SPECIFIED POSTPROCEDURAL STATES; Z86.79 - PERSONAL HISTORY OF OTHER DISEASES OF THE CIRCULATORY SYSTEM (4) Status post balloon dilatation of esophageal stricture Code(s): Z98.890 - OTHER SPECIFIED POSTPROCEDURAL STATES (5) Systolic and diastolic CHF, acute on chronic Code(s): I50.43 - ACUTE ON CHRONIC COMBINED SYSTOLIC AND DIASTOLIC HRT FAIL (6) Atrial fibrillation Code(s): I48.91 - UNSPECIFIED ATRIAL FIBRILLATION Qualifiers: Atrial fibrillation type: persistent Qualified Code(s): I48.1 - Persistent atrial fibrillation (7) B-cell lymphoma Code(s): C85.10 - UNSPECIFIED B-CELL LYMPHOMA, UNSPECIFIED SITE Qualifiers: B-cell lymphoma type: unspecified B-cell (8) CAD (coronary artery disease) Code(s): I25.10 - ATHSCL HEART DISEASE OF [place] CORONARY ARTERY W/O ANG PCTRS Qualifiers: Coronary Disease-Associated Artery/Lesion type: [place] artery [place] vs. transplanted heart: [place] heart Associated angina: without angina Qualified Code(s): I25.10 - Atherosclerotic heart disease of [place] coronary artery without angina pectoris (9) COPD (chronic obstructive pulmonary disease) Code(s): J44.9 - CHRONIC OBSTRUCTIVE PULMONARY DISEASE, UNSPECIFIED Qualifiers: COPD type: unspecified COPD Qualified Code(s): J44.9 - Chronic obstructive pulmonary disease, unspecified (10) H/O atrial septal defect repair Code(s): Z98.89 - OTHER SPECIFIED POSTPROCEDURAL STATES * DO NOT USE *; Z87.74 - PERSONAL HISTORY OF CONGENITAL MALFORM OF HEART AND CIRC SYS (11) History of melena Code(s): Z87.19 - PERSONAL HISTORY OF OTHER DISEASES OF THE DIGESTIVE SYSTEM (12) Hypercholesterolemia Code(s): E78.0 - PURE HYPERCHOLESTEROLEMIA * DO NOT USE * (13) Pulmonary HTN Code(s): I27.20 - PULMONARY HYPERTENSION, UNSPECIFIED (14) Reactive airway disease Code(s): J45.909 - UNSPECIFIED ASTHMA, UNCOMPLICATED Qualifiers: Asthma severity: unspecified severity Asthma complication type: uncomplicated Qualified Code(s): J45.909 - Unspecified asthma, uncomplicated (15) Shortness of breath on exertion Code(s): R06.02 - SHORTNESS OF BREATH
--- NOTE | 2018-03-19 15:10 | PN ---
Progress Note, Physician - Current Medication List Current Medications: Active Medications Bacitracin (Bacitracin -) 1 applic TP BID [facility] Last Admin: 03/19/18 09:54 Dose: 1 applic Budesonide/Formoterol Fumarate (Symbicort 160/4.5mcg -) 2 puff IH BID [facility] Last Admin: 03/19/18 09:55 Dose: 2 puff Cefepime HCl (Maxipime 1 Gm Premix Ivpb) 1 gm in 50 mls @ 100 mls/hr IVPB BID [facility]; Protocol Last Admin: 03/19/18 09:54 Dose: 100 mls/hr Losartan Potassium (Cozaar -) 25 mg PO DAILY [facility] Last Admin: 03/19/18 09:55 Dose: Not Given Metoprolol Succinate (Toprol Xl -) 25 mg PO BID [facility] Last Admin: 03/19/18 10:06 Dose: 25 mg Pantoprazole Sodium (Protonix -) 40 mg PO DAILY [facility] Last Admin: 03/19/18 09:54 Dose: 40 mg Spironolactone (Aldactone -) 25 mg PO BID [facility] Last Admin: 03/19/18 10:07 Dose: 25 mg - Objective Vital Signs: Vital Signs Temperature 98.4 F 03/19/18 14:45 Pulse Rate 59 L 03/19/18 14:45 Respiratory Rate 20 03/19/18 14:45 Blood Pressure 109/41 03/19/18 14:45 O2 Sat by Pulse Oximetry (%) 98 03/19/18 09:00 Cardiovascular: Yes: S1, S2 Respiratory: Yes: Regular, CTA Bilaterally Gastrointestinal: Yes: Normal Bowel Sounds, Soft Edema: Yes Edema: RLE: 2+ Integumentary: Yes: Erythema, Venous Stasis Changes Labs: CBC, BMP 03/18/18 06:00 03/18/18 06:00 INR, PTT INR 1.17 (0.83-1.09) H 03/14/18 15:00 Problem List - Problems (1) Cellulitis of right leg Assessment/Plan: IV ABX x 48 hrs ID CONSULT AND FOLLOW UP NOTED FOLLOW LABS AND CULTURES Microbiology 03/14/18 14:06 Blood - Peripheral Venous Blood Culture - Final NO GROWTH AFTER 5 DAYS INCUBATION 03/14/18 14:06 Blood - Peripheral Venous Blood Culture - Final NO GROWTH AFTER 5 DAYS INCUBATION 03/14/18 17:18 Blood - Peripheral Venous Blood Culture - Preliminary NO GROWTH OBTAINED AFTER 96 HOURS, INCUBATION TO CONTINUE FOR 1 DAYS. 03/14/18 17:18 Blood - Peripheral Venous Blood Culture - Final Staphylococcus Epidermidis DUPLEX NEG DVT Code(s): L03.115 - CELLULITIS OF RIGHT LOWER LIMB (2) Weight loss Assessment/Plan: -UNKNOWN ETIOLOGY--NOW STABLE -ONCOLOGY CONSULT NOTED -CT SCAN--Small ln--no significant abn Code(s): R63.4 - ABNORMAL WEIGHT LOSS (3) Lymphoma Assessment/Plan: -lOW GRADE RECENTLY DX -ONCOLOGY CONSULT NOTED Laboratory Tests 03/14/18 03/15/18 03/16/18 16:15 06:00 06:00 WBC 2.3 L 1.8 L* 1.6 L* Hgb 9.5 L 03/18/18 06:00 WBC 2.4 L Hgb 9.1 L Code(s): C85.90 - NON-[place]GKIN LYMPHOMA, UNSPECIFIED, UNSPECIFIED SITE (4) Atrial fibrillation Assessment/Plan: -AC ON HOLD DUE TO H/O GI BLEED -CARDIO ON BOARD Code(s): I48.91 - UNSPECIFIED ATRIAL FIBRILLATION Qualifiers: Atrial fibrillation type: persistent Qualified Code(s): I48.1 - Persistent atrial fibrillation (5) JE (acute kidney injury) Assessment/Plan: -ON IVF -MONITOR LABS Code(s): N17.9 - ACUTE KIDNEY FAILURE, UNSPECIFIED (6) Neutropenia Assessment/Plan: -PER ONCOLOGY -IMPROVED Code(s): D70.9 - NEUTROPENIA, UNSPECIFIED
[2018-03-20 07:28] LABS: EOS % 7.4 % (0-4.5); HEMATOCRIT 26.8 % (35.4-49); HEMOGLOBIN 8.3 GM/dL (11.7-16.9); LYMPH % 20.4 % (8-40); MCH 24.4 pg (25.7-33.7); MCHC 30.9 g/dl (32.0-35.9); MEAN PLT VOLUME 7.5 fl (7.5-11.1); MONO % 19.5 % (3.8-10.2); NEUT % 51.7 % (42.8-82.8); PLATELET COUNT 177 K/MM3 (134-434); RBC 3.39 M/mm3 (4.00-5.60); RDW 20.5 % (11.9-15.9); WHITE BLOOD COUNT 2.1 K/mm3 (4.0-10.0)
[2018-03-20 08:02] LABS: CHLORIDE 99 mmol/L (98-107); SODIUM 136 mmol/L (136-145)
[2018-03-20 08:09] LABS: ALBUMIN 2.5 g/dl (3.4-5.0); ALK PHOS 98 U/L (45-117); ANION GAP 7 MMOL/L (8-16); BILIRUBIN,TOTAL 0.5 mg/dL (0.2-1.0); BLOOD UREA NITROGEN 28 mg/dL (7-18); CALCIUM 8.4 mg/dL (8.5-10.1); CO2 30 mmol/L (21-32); CREATININE 1.1 mg/dL (0.7-1.3); GLUCOSE,RANDOM 100 mg/dL (74-106); SGOT/AST 18 U/L (15-37); SGPT/ALT 14 U/L (12-78); TOT PROT 7.5 g/dl (6.4-8.2)
[2018-03-20 11:05] LABS: ANISOCYTOSIS 1+; MACROCYTOSIS 1+
[2018-03-20] MEDS: CEFEPIME HCL/D5W 1 GM/50 ML BAG IVPB SCH (11:17)
[2018-03-20] MEDS: LOSARTAN POTASSIUM 25 MG TABLET PO SCH (11:17)
[2018-03-20] MEDS: SPIRONOLACTONE 25 MG TABLET (FP) PO SCH (11:17)
[2018-03-20] MEDS: BUDESONIDE/FORMETEROL FUMARATE 160/4.5 mcg INHALER IH SCH (11:18)
[2018-03-20] MEDS: PANTOPRAZOLE 40 MG TABLET (FP) PO SCH (11:18)
[2018-03-20] MEDS: metoPROLOL SUCCINATE 25 MG TAB.SR.24H (FP) PO SCH (11:18)
[2018-03-20] MEDS: BACITRACIN 15 GM TUBE TOPICAL OINTMENT TP SCH (11:19)
--- NOTE | 2018-03-20 11:32 | PN ---
Progress Note (short form) - Note Progress Note: PULMONARY No specific complaints. Denies shortness of breath or chest pain. Vital Signs Period Temp Pulse Resp BP Sys/Brian Pulse Ox Last 24 Hr 97.9 F-98.9 F 57-66 18-22 109-136/41-49 98 Gen: NAD at rest Heart: irregular Lung: decreased breath sounds at the bases Abd: soft, nontender Ext: RLE edema, erythema CBC, BMP 03/20/18 06:00 03/20/18 06:00 Active Medications Bacitracin (Bacitracin -) 1 applic TP BID [facility] Last Admin: 03/20/18 11:19 Dose: 1 applic Budesonide/Formoterol Fumarate (Symbicort 160/4.5mcg -) 2 puff IH BID [facility] Last Admin: 03/20/18 11:18 Dose: 2 puff Cefepime HCl (Maxipime 1 Gm Premix Ivpb) 1 gm in 50 mls @ 100 mls/hr IVPB BID [facility]; Protocol Last Admin: 03/20/18 11:17 Dose: 100 mls/hr Losartan Potassium (Cozaar -) 25 mg PO DAILY [facility] Last Admin: 03/20/18 11:17 Dose: 25 mg Metoprolol Succinate (Toprol Xl -) 25 mg PO BID [facility] Last Admin: 03/20/18 11:18 Dose: 25 mg Pantoprazole Sodium (Protonix -) 40 mg PO DAILY [facility] Last Admin: 03/20/18 11:18 Dose: 40 mg Spironolactone (Aldactone -) 25 mg PO BID [facility] Last Admin: 03/20/18 11:17 Dose: 25 mg A/P RLE Cellulitis improved LV Diastolic/Systolic Dysfunction CAD Atrial Fibrillation Paroxysmal Atrial Tachycardia Aortic Regurgitation Pulmonary HTN COPD Leukopenia - complete antibiotics - wound care - rate controlled - inhaled bronchodilators - d/c planning
--- NOTE | 2018-03-20 12:00 | PN ---
Progress Note (short form) - Note Progress Note: leg much improved Vital Signs Period Temp Pulse Resp BP Sys/Brian Pulse Ox Last 24 Hr 97.9 F-98.9 F 57-66 18-22 109-136/41-49 98 cor-rrr lungs clear abd soft, nt ext minimal erythema RLE CBC, BMP 03/20/18 06:00 03/20/18 06:00 Microbiology 03/14/18 17:18 Blood - Peripheral Venous Blood Culture - Final NO GROWTH AFTER 5 DAYS INCUBATION 03/14/18 14:06 Blood - Peripheral Venous Blood Culture - Final NO GROWTH AFTER 5 DAYS INCUBATION 03/14/18 14:06 Blood - Peripheral Venous Blood Culture - Final NO GROWTH AFTER 5 DAYS INCUBATION 03/14/18 17:18 Blood - Peripheral Venous Blood Culture - Final Staphylococcus Epidermidis ct scans noted imp/reccd extensive cellulitis RLE-improved day #6 antibiotics lymphoma chronic leukopenia blood culture- contaminant scn one bottle can switch to po keflex 500 tid for 5 day please call back if needed Problem List - Problems (1) Cellulitis of right leg Code(s): L03.115 - CELLULITIS OF RIGHT LOWER LIMB (2) Neutropenia Code(s): D70.9 - NEUTROPENIA, UNSPECIFIED (3) Lymphoma Code(s): C85.90 - NON-HODGKIN LYMPHOMA, UNSPECIFIED, UNSPECIFIED SITE (4) JE (acute kidney injury) Code(s): N17.9 - ACUTE KIDNEY FAILURE, UNSPECIFIED
--- NOTE | 2018-03-20 12:14 | PN ---
Progress Note, Physician History of Present Illness: RLE erythema, tenderness, edema and warmth resolved, afebrile - Current Medication List Current Medications: Active Medications Bacitracin (Bacitracin -) 1 applic TP BID [facility] Last Admin: 03/20/18 11:19 Dose: 1 applic Budesonide/Formoterol Fumarate (Symbicort 160/4.5mcg -) 2 puff IH BID [facility] Last Admin: 03/20/18 11:18 Dose: 2 puff Cefepime HCl (Maxipime 1 Gm Premix Ivpb) 1 gm in 50 mls @ 100 mls/hr IVPB BID [facility]; Protocol Last Admin: 03/20/18 11:17 Dose: 100 mls/hr Losartan Potassium (Cozaar -) 25 mg PO DAILY [facility] Last Admin: 03/20/18 11:17 Dose: 25 mg Metoprolol Succinate (Toprol Xl -) 25 mg PO BID [facility] Last Admin: 03/20/18 11:18 Dose: 25 mg Pantoprazole Sodium (Protonix -) 40 mg PO DAILY [facility] Last Admin: 03/20/18 11:18 Dose: 40 mg Spironolactone (Aldactone -) 25 mg PO BID [facility] Last Admin: 03/20/18 11:17 Dose: 25 mg - Objective Vital Signs: Vital Signs Temperature 97.8 F 03/20/18 10:00 Pulse Rate 53 L 03/20/18 10:00 Respiratory Rate 16 03/20/18 10:00 Blood Pressure 140/50 03/20/18 10:00 O2 Sat by Pulse Oximetry (%) 98 03/19/18 21:00 Constitutional: Yes: No Distress, Calm Neck: Yes: Supple Cardiovascular: Yes: Regular Rate and Rhythm Respiratory: Yes: Regular, Diminished Gastrointestinal: Yes: Normal Bowel Sounds, Soft Edema: No Labs: CBC, BMP 03/20/18 06:00 03/20/18 06:00 INR, PTT INR 1.17 (0.83-1.09) H 03/14/18 15:00 Problem List - Problems (1) Cellulitis of right leg Code(s): L03.115 - CELLULITIS OF RIGHT LOWER LIMB (2) Status post Maze operation for atrial fibrillation Code(s): Z98.890 - OTHER SPECIFIED POSTPROCEDURAL STATES; Z86.79 - PERSONAL HISTORY OF OTHER DISEASES OF THE CIRCULATORY SYSTEM (3) Systolic and diastolic CHF, acute on chronic Code(s): I50.43 - ACUTE ON CHRONIC COMBINED SYSTOLIC AND DIASTOLIC HRT FAIL (4) Atrial fibrillation Code(s): I48.91 - UNSPECIFIED ATRIAL FIBRILLATION Qualifiers: Atrial fibrillation type: persistent Qualified Code(s): I48.1 - Persistent atrial fibrillation (5) CAD (coronary artery disease) Code(s): I25.10 - ATHSCL HEART DISEASE OF [place] CORONARY ARTERY W/O ANG PCTRS Qualifiers: Coronary Disease-Associated Artery/Lesion type: [place] artery [place] vs. transplanted heart: [place] heart Associated angina: without angina Qualified Code(s): I25.10 - Atherosclerotic heart disease of [place] coronary artery without angina pectoris (6) COPD (chronic obstructive pulmonary disease) Code(s): J44.9 - CHRONIC OBSTRUCTIVE PULMONARY DISEASE, UNSPECIFIED Qualifiers: COPD type: unspecified COPD Qualified Code(s): J44.9 - Chronic obstructive pulmonary disease, unspecified (7) H/O atrial septal defect repair Code(s): Z98.89 - OTHER SPECIFIED POSTPROCEDURAL STATES * DO NOT USE *; Z87.74 - PERSONAL HISTORY OF CONGENITAL MALFORM OF HEART AND CIRC SYS (8) Hypercholesterolemia Code(s): E78.0 - PURE HYPERCHOLESTEROLEMIA * DO NOT USE * (9) Hypertension Code(s): I10 - ESSENTIAL (PRIMARY) HYPERTENSION Qualifiers: Hypertension type: essential hypertension Qualified Code(s): I10 - Essential (primary) hypertension (10) Pulmonary HTN Code(s): I27.20 - PULMONARY HYPERTENSION, UNSPECIFIED (11) Right bundle branch block Code(s): I45.10 - UNSPECIFIED RIGHT BUNDLE-BRANCH BLOCK Assessment/Plan Echocardiography performed October 28, 2015 revealed normal left ventricular size and systolic function, moderate reduction in right ventricular systolic function , bi-atrial dilatation left atrial measurement 6.0 cm, mitral annular calcification, aortic valve leaflet sclerosis, aortic root dilatation measuring 4.2 cm, mild mitral valve regurgitation, moderate aortic valve regurgitation, mild to moderate tricuspid valve regurgitation with calculated RVSP between 50- 60 mmHg. Right and left cardiac catheterization coronary angiography performed April revealed single vessel obstructive coronary artery disease (90% ostial LAD-D1 lesion) and moderate to severe degree of pulmonary hypertension not responsive to vasodilator therapy, PA pressure of 67 over 30 mmHg. Echocardiography performed October 02, 2013 revealed normal left ventricular size with mild reduction in left ventricular systolic function, abnormal septal motion, right ventricular dilatation and moderate diffuse hypokinesia, bi- atrial dilatation left atrial measurement of 4.3 cm, mitral annular calcification, aortic valve leaflet sclerosis, mild to moderate eccentric mitral valve regurgitation, moderate aortic valve regurgitation, mild to moderate tricuspid valve regurgitation with calculated RVSP between 50-60 mmHg. Carotid Doppler study performed October 25, 2013 revealed mild degree of atherosclerotic plaque bilaterally with no evidence of hemodynamically significant stenosis. Pharmacologic (Dipyridamole) myocardial perfusion imaging study performed July 29, 2010 reveal small size anterior, aaron-basal wall defect compatible with mild ischemia, small size inferior, infero-basal wall defect compatible with diaphragmatic attenuation with normal left ventricular contraction pattern on LV gated analysis with calculated left ventricular ejection fraction of 69%. ASD repair operative report dated July 16, 2008 included patch repair of ASD, bi-atrial MAZE procedure and ligation of left atrial appendage. Assessment: 1. Right lower extremity swelling, erythema, and edema c/w with cellulitis improved, ruled out for DVT 2. Diastolic/systolic left ventricular dysfunction with chronic class I-II [place] [employer] classification left ventricular failure, euvolemic 3. Coronary artery disease abnormal pharmacologic (Dipyridamole) myocardial perfusion imaging study single vessel obstructive coronary artery disease angina pectoris, stable. 4. Persistent atrial fibrillation/atrial flutter post cryo-maze [id number] score of 4 currently off of anticoagulation therapy/Coumadin related to recurrent gastrointestinal bleed (not a candidate for left atrial appendage closure device considering prior history of left atrial appendage ligation performed as July 16, 2008). 5. Paroxysmal atypical atrial tachycardia. 6. Atrial septal defect post-surgical repair. 7. Mitral valve regurgitation mild in severity of no clinical significance. 8. Aortic valve regurgitation moderate in severity. 9. Tricuspid valve regurgitation mild to moderate in severity with RVSP between 50-60 mmHg on echocardiography performed October 28, 2015 and pulmonary artery pressure of 67/30 mmHg on right heart cardiac catheterization April, not responsive to vasodilator therapy. 10. Hypercholesterolemia. 11. Carotid stenosis mild in severity, asymptomatic. 12. Acute on CKD 13. History of chronic obstructive pulmonary disease/reactive airway disease. 14. History of recurrent gastro-intestinal bleed. 15. History of degenerative joint disease. 16. H/o B-cell lymphoma with leukopenia PLAN: 1. Complete oral abx course per ID, contaminant scn in one bottle 2. Continue losartan 25 qd, Toprol XL 25 bid, Aldactone 25 bid 3. Heme evaluation including Flow cytometry, CT-chest , abdomen, pelvis, Consider bone marrow, Check Fe++ studies for anemia. 4. D/c planning
[2018-03-20 13:56] VITALS: BMI 22.4
--- NOTE | 2018-03-20 16:54 | DS ---
Physical Examination Vital Signs: Vital Signs Temperature 97.9 F 03/20/18 14:28 Pulse Rate 55 L 03/20/18 14:28 Respiratory Rate 18 03/20/18 14:28 Blood Pressure 115/52 03/20/18 14:28 O2 Sat by Pulse Oximetry (%) 98 03/20/18 09:00 Constitutional: Yes: No Distress Eyes: Yes: WNL HENT: Yes: WNL Neck: Yes: WNL Cardiovascular: Yes: WNL Respiratory: Yes: WNL Gastrointestinal: Yes: WNL Renal/: Yes: WNL Musculoskeletal: Yes: Muscle Weakness Extremities: Yes: Erythema Edema: Yes Edema: RLE: 1+ Peripheral Pulses WNL: Yes Integumentary: Yes: Erythema Wound/Incision: Yes: Dressing Dry and Intact Neurological: Yes: Pre-Existing Deficit ...Motor Strength: RLE Psychiatric: Yes: WNL Labs: CBC, BMP 03/20/18 06:00 03/20/18 06:00 Discharge Summary Reason For Visit: CELLULITIS Current Active Problems EJ (acute kidney injury) (Acute) Cellulitis of right leg (Acute) Lymphoma (Acute) Neutropenia (Acute) Weight loss (Acute) Procedures: Principal: CT SCANS CHEST ABD Hospital Course: ADMITTED WITH CELLULITIS RIGHT LOWER EXTREMITY TREATED WITH IV ABX, WORKED UP FOR B-CELL LYMPHOMA WILL FOLLOW UP OUTPATIENT WITH ONCOLOGY. TO SEE HIS PMD DR FRIEDMAN IN 1 WEEK Condition: Stable - Instructions Diet, Activity, Other Instructions: SEE DR FRIEDMAN YOUR [facility] DOCTOR IN [address] WITH ONCOLOGY [address] FORD OUTPATIENT CONTINUE KEFLEX 7 DAYS TID WOUND F/U WITH PMD Referrals: Ean Pfeiffer MD [Staff Physician] - Disposition: VNS/HOME HEALTH CARE - Home Medications Comprehensive Discharge Medication List: Ambulatory Orders Losartan Potassium 50 mg PO DAILY 11/30/17 Metoprolol Tartrate 25 mg PO BID 11/30/17 Pantoprazole Sodium 40 mg PO DAILY 11/30/17 Furosemide [Lasix] 40 mg PO DAILY 03/14/18 Polyethylene Glycol [Polyox Wsr-301] 1 gm PO DAILY 03/14/18 Spironolactone 25 mg PO DAILY 03/14/18 Bacitracin - [Bacitracin Topical Ointment -] 1 applic TP BID #180 tube 03/20/18 Budesonide/Formeterol Fumarate [SYMBICORT 160/4.5mcg -] 2 puff IH BID #1 inhaler 03/20/18
[2018-03-20 18:11] VITALS: BP 123/50; PULSE 57; TEMP 97.8
[2018-03-22 01:39] LABS: FREE KAPPA,SERUM 69.9 mg/L (3.3-19.4)
--- NOTE | 2018-03-24 12:13 | PATH ---
Surgical Pathology Report Patient Name: GIRISH ELIZABETH [facility]. Rec. #: [id number] /Age/Gender: 1930 (Age: 88) / M Account: [id number] Location: [facility] MED/SURG Taken: 03/20/2018 Received: 03/21/2018 Reported: 03/24/2018 Physicians: Vi Hirsch M.D. 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 Additional Tests: Cytogenetics, FISH See [facility] report ([id number]) for additional details. HEMATOLOGIC FISH REPORT INTERPRETATION: No results. No FISH testing is required. See [facility] report ([id number]) for additional details. Electronically Signed Alison Yates M.D. Addendum Reported: 03/28/2018 Addendum Diagnosis CYTOGENETIC KARYOTYPE ANALYSIS RESULTS: Tissue Culture Failure INTERPRETATION: This unstimulated peripheral blood specimen did not produce any analyzable metaphase cells and, therefore, chromosome analysis is not possible. A bone marrow aspirate, when clinically appropriate, is recommended. See [facility] report ([id number]) for additional details. Alison Yates M.D. Gross Description Received are 2 green top tubes and 2 purple top tubes of blood which are sent to [facility]. 03/21/2018 saudi03/21/2018
== END 2018-03-20 18:00 | disposition home health service (06) | DRG 841 ==
LOC: JER 12:04 → JERBED 14:32 → J7W 18:00
PROVIDERS: ADMIT Family Medicine; ATTEND Family Medicine
DX: C85.10 Unspecified B-cell lymphoma, unspecified site (principal); L03.115 Cellulitis of right lower limb; I48.1 Persistent atrial fibrillation; N17.9 Acute kidney failure, unspecified; I47.1 Supraventricular tachycardia; I13.0 Hypertensive heart and chronic kidney disease with heart failure and stage 1 through stage 4 chronic kidney disease, or unspecified chronic kidney disease; I50.42 Chronic combined systolic (congestive) and diastolic (congestive) heart failure; R63.4 Abnormal weight loss; D70.9 Neutropenia, unspecified; Z68.22 Body mass index [BMI] 22.0-22.9, adult; I25.10 Atherosclerotic heart disease of native coronary artery without angina pectoris; I27.20 Pulmonary hypertension, unspecified; I35.1 Nonrheumatic aortic (valve) insufficiency; J44.9 Chronic obstructive pulmonary disease, unspecified; D72.819 Decreased white blood cell count, unspecified; N18.9 Chronic kidney disease, unspecified
CPT/HCPCS: 36415; 70450-TC; 71046-TC-FY; 71250-TC; 73590-TC-RT-FY; 74176-TC; 80048; 80053; 82728; 82784; 83540; 83550; 83605; 83615; 83735; 83883; 84155; 84165; 84466; 84550; 85025; 85610; 85730; 85810; 87040; 87186; 88300-TC; 93005; 93010; 93971-TC; 96365; 99283-25; G0480; J1756; J7030